=== PATIENT | female | born 1990 | race African-American/Black ===

== ENCOUNTER 2017-10-30 06:57 | Emergency (ER) | payer OTHER, SELFPAY ==
[2017-10-30] MEDS ORDERED: ACETAMINOPHEN 500 MG TAB ONE (07:12)
[2017-10-30] MEDS ORDERED: IBUPROFEN 400 MG TAB ONE (07:44)
[2017-10-30 08:07] LABS: Urine Glucose NEGATIVE (NEG); Urine Specific Gravity 1.025 (1.005-1.030)
[2017-10-30 08:08] LABS: Urine Blood TRACE (NEG); Urine Protein 1+ (NEG); Urine pH 7.5 (5.0-7.0)
[2017-10-30] MEDS ORDERED: METOCLOPRAMIDE 10 MG/2mL INJ ONE (08:14)
[2017-10-30] MEDS ORDERED: DEXAMETHASONE 10 MG/ML VIAL ONE (08:14)
[2017-10-30] MEDS ORDERED: NA CHLORIDE 0.9% 1,000 ML ONE ×2 (08:14→09:11)
[2017-10-30 08:40] LABS: BUN Blood Urea Nitrogen 9 mg/dL (7-18); Bicarbonate 25 mmol/L (21-32); Glucose Level 116 mg/dL (74-106); Potassium 3.9 mmol/L (3.5-5.1); Sodium Level 139 mmol/L (136-145)
[2017-10-30 09:09] LABS: Absolute Monocytes 1.2 K/uL (0.1-1.3); Absolute Neutrophil 11.6 K/uL (1.8-8.0); Basophils % 0.3 % (0-1.3); Eosinophils % 0.3 % (0-4.4); Hematocrit 32.8 % (36.0-45.0); Lymphocytes % 7.5 % (15.3-44.8); MCH 24.7 pg (27.0-35.0); MCV 75.3 fL (80-100); MPV 9.4 fL (7.6-11.3); Monocytes % 8.8 % (3.3-12.3); RBC Red Blood Cell Count 4.36 M/uL (3.86-4.86)
[2017-10-30] MEDS ORDERED: CEFTRIAXONE/SWI 1gm 1 GM/10 ML SYR ONE (09:11)
--- NOTE | 2017-10-30 09:39 | ER ---
Nurse's Notes [facility] Name: Melanie Paz Age: 27 yrs Sex: Female : 1990 Arrival Date: 10/30/2017 Time: 07:02 Bed 13 Private MD: Diagnosis: Acute tonsillitis Presentation: 10/30 07:09 Presenting complaint: Patient states: has had body aches, chills, headache, sore throat iw X 2-3 days, denies n/v/d, denies cough, +mild SOB. Transition of care: patient was not received from another setting of care. Onset of symptoms was October 28, 2017. Risk Assessment: Do you want to hurt yourself or someone else? Patient reports no desire to harm self or others. Initial Sepsis Screen: Does the patient meet any 2 criteria? Temp <36.0*C (96.8*F)) or > 38.3*C (100.4*F). HR > 90 bpm. Does the patient have a suspected source of infection? Yes: Other: throat. Care prior to arrival: None. 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 - Social history:: Smoking status: Patient/guardian denies using tobacco. - Ebola Screening: : Patient negative for fever greater than or equal to 101.5 degrees Fahrenheit, and additional compatible Ebola Virus Disease symptoms Patient denies exposure to infectious person Patient denies travel to an Ebola-affected area in the 21 days before illness onset No symptoms or risks identified at this time. Screenin:50 Abuse screen: Denies threats or abuse. Nutritional screening: No deficits noted. em Tuberculosis screening: No symptoms or risk factors identified. Fall Risk None identified. Assessment: 07:15 General: Appears in no apparent distress. uncomfortable, Behavior is calm, cooperative. em Pain: Complains of pain in throat Pain currently is 10 out of 10 on a pain scale. Neuro: Level of Consciousness is awake, alert, obeys commands, Oriented to person, place, time, situation. Cardiovascular: Patient's skin is warm and dry. Respiratory: Airway is patent Respiratory effort is even, unlabored, Breath sounds are clear bilaterally. EENT: Throat is reddened has enlarged tonsils bilaterally. EENT: Reports difficulty swallowing since 3 days. Derm: Skin is intact, Skin is pink, warm \T\ dry. Musculoskeletal: Range of motion: intact in all extremities. 07:32 Reassessment: Patient appears in no apparent distress at this time. I agree with above iw assessment by Jason Lay LVN. 08:02 Reassessment: Patient appears in no apparent distress at this time. Patient and/or em family updated on plan of care and expected duration. Pain level reassessed. Patient is alert, oriented x 3, equal unlabored respirations, skin warm/dry/pink. request pain medication for back and headache, GIOVANY Paniagua notified. 09:25 Reassessment: Patient appears in no apparent distress at this time. Patient and/or em family updated on plan of care and expected duration. Pain level reassessed. reports ready to go home, c/o back pain due to the stretcher, discharged pending 2nd litter NS bolus. 10:08 Reassessment: Patient and/or family updated on plan of care and expected duration. Pain hj level reassessed. Patient is alert, oriented x 3, equal unlabored respirations, skin warm/dry/pink. awaiting fluids to finish;. Vital Signs: 07:12 BP 156 / 91; Pulse 128; Resp 18 S; Temp 103.3(O); Pulse Ox 99% on R/A; Weight 99.79 kg; iw Height 5 ft. 4 in. (162.56 cm); Pain 10; 08:03 BP 147 / 84; Pulse 125; Resp 20; Temp 103.2(O); Pulse Ox 98% on R/A; em 09:13 BP 117 / 86; Pulse 119; Resp 18; Temp 99.7(O); Pulse Ox 98% on R/A; mh5 09:54 Pulse 108; Resp 17; Pulse Ox 97% on R/A; em 10:08 BP 129 / 65; Pulse 103; Resp 18; Temp 99.1(O); Pulse Ox 97% on R/A; hj 07:12 Body Mass Index 37.76 (99.79 kg, 162.56 cm) ED Course: 07:02 Patient arrived in ED. al2 07:07 Siva Christopher PA is PHCP. cp 07:07 Siva Hankins MD is Attending Physician. cp 07:13 Triage completed. iw 07:13 Arm band placed on. iw 07:14 Jason Lay LVN is Primary Nurse. em 07:50 Patient has correct armband on for positive identification. Bed in low position. Call em light in reach. 07:51 No provider procedures requiring assistance completed. em 08:24 Initial lab(s) drawn, by me, sent to lab. Urine collected: clean catch specimen, mh5 cloudy. Inserted saline lock: 22 gauge in right antecubital area, using aseptic technique. Blood collected. 08:26 BMP Sent. mh5 08:26 CBC with Diff Sent. mh5 08:26 Throat Culture Sent. mh5 08:26 Strep swab sent to lab. mh5 09:12 Lab(s) recollected, by ED staff. mh5 10:16 IV discontinued, intact, bleeding controlled, No redness/swelling at site. Pressure hj dressing applied. Administered Medications: 07:14 Drug: Tylenol 1000 mg Route: PO; em 10:02 Follow up: Response: No adverse reaction; Pain is decreased hj 07:40 Drug: Ibuprofen 800 mg Route: PO; em 10:02 Follow up: Response: No adverse reaction hj 08:30 Drug: Decadron - Dexamethasone 10 mg Route: IVP; Site: right antecubital; iw 09:17 Follow up: Response: No adverse reaction em 08:30 Drug: Reglan 10 mg Route: IVP; Site: right antecubital; iw 09:18 Follow up: Response: No adverse reaction em 08:31 Drug: NS 0.9% 1000 ml Route: IV; Rate: 1 bolus; Site: right antecubital; em 09:43 Follow up: IV Status: Completed infusion; IV Intake: 1000ml em 09:14 Drug: Rocephin 1 grams Route: IV; Rate: calculated rate; Site: right antecubital; iw 09:43 Follow up: Response: No adverse reaction; IV Status: Completed infusion em 09:16 Drug: NS 0.9% 1000 ml Route: IV; Rate: 1 bolus; Site: right antecubital; em 10:17 Follow up: IV Status: Completed infusion; IV Intake: 1000ml hj Intake: 09:43 IV: 1000ml; Total: 1000ml. em 10:17 IV: 1000ml; Total: 2000ml. hj Outcome: 09:38 Discharge ordered by MD. cp 10:16 Discharged to home ambulatory. hj 10:16 Condition: stable 10:16 Discharge instructions given to patient, Instructed on discharge instructions, follow up and referral plans. medication usage, Demonstrated understanding of instructions, follow-up care, medications, Prescriptions given X 2. 10:17 Patient left the ED. Signatures: Jason Lay, MELINA TRAMMELLN em Leola Hinds RN RN Rogelio Moraes RN RN hj Page, Corey, PA PA cp Martinez, Ree 5 Mirella, Conchita [email or web address] Corrections: (The following items were deleted from the chart) 07:51 07:15 Respiratory: Airway is patent Breath sounds are clear bilaterally. em em
--- NOTE | 2017-10-30 09:39 | EDPHYS ---
Physician Documentation [facility] Name: Melanie Paz Age: 27 yrs Sex: Female : 1990 Arrival Date: 10/30/2017 Time: 07:02 Bed 13 Private MD: ED Physician Siva Hankins HPI: 10/30 07:15 This 27 yrs old Black Female presents to ER via Ambulatory with complaints of Sore cp Throat. 07:15 The patient presents with sore throat. The patient describes throat pain as constant. cp 07:15 Onset: The symptoms/episode began/occurred 3 day(s) ago. cp 07:15 Severity of symptoms: in the emergency department the symptoms are unchanged. cp Associated signs and symptoms: Pertinent positives: dysphagia, fever, Pertinent negatives cough, diarrhea, rhinorrhea, vomiting. 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 - Social history:: Smoking status: Patient/guardian denies using tobacco. - Ebola Screening: : Patient negative for fever greater than or equal to 101.5 degrees Fahrenheit, and additional compatible Ebola Virus Disease symptoms Patient denies exposure to infectious person Patient denies travel to an Ebola-affected area in the 21 days before illness onset No symptoms or risks identified at this time. ROS: 07:20 Constitutional: Positive for body aches, fever, Negative for poor PO intake. cp 07:20 Eyes: Negative for injury, pain, redness, and discharge. cp 07:20 ENT: Positive for sore throat, Negative for drainage from ear(s), ear pain, rhinorrhea, difficulty swallowing, difficulty handling secretions. 07:20 Neck: Negative for pain with movement, stiffness. 07:20 Cardiovascular: Negative for chest pain, edema, palpitations. 07:20 Respiratory: Positive for cough, with no reported sputum, Negative for shortness of breath, wheezing. 07:20 Abdomen/GI: Negative for abdominal pain, nausea, vomiting, and diarrhea. 07:20 Skin: Negative for cellulitis, rash. 07:20 Neuro: Positive for headache, Negative for altered mental status, weakness. 07:20 All other systems are negative. Exam: 07:38 Constitutional: The patient appears in no acute distress, alert, awake, well developed, cp well nourished, febrile. 07:38 Head/Face: Normocephalic, atraumatic. cp 07:38 Eyes: Periorbital structures: appear normal, Pupils: equal, round, and reactive to light and accomodation, Extraocular movements: intact throughout, Conjunctiva: normal, no exudate, no injection, Sclera: no appreciated abnormality, Lids and lashes: appear normal, bilaterally. 07:38 ENT: External ear(s): are unremarkable, Ear canal(s): are normal, clear, TM's: dullness, bilaterally, Nose: is normal, Mouth: Lips: moist, Oral mucosa: moist, Posterior pharynx: Airway: no evidence of obstruction, patent, Tonsils: bilaterally enlarged, with erythema, with exudate, Uvula: midline, swelling, is not appreciated, erythema, that is moderate, Voice: is hoarse. 07:38 Neck: ROM/movement: is normal, is supple, no range of motions limitations, no meningismus, no nuchal rigidity, Lymph nodes: lymphadenopathy is appreciated, anterior cervical nodes. 07:38 Chest/axilla: Inspection: normal, Palpation: is normal, no crepitus, no tenderness. 07:38 Cardiovascular: Rate: tachycardic, Rhythm: regular. 07:38 Respiratory: the patient does not display signs of respiratory distress, Respirations: normal, no use of accessory muscles, no retractions, no splinting, no tachypnea, labored breathing, is not present, Breath sounds: are clear throughout, no decreased breath sounds, no stridor, no wheezing. 07:38 Abdomen/GI: Inspection: abdomen appears normal, Bowel sounds: active, all quadrants, Palpation: abdomen is soft and non-tender, in all quadrants, rebound tenderness, is not appreciated, voluntary guarding, is not appreciated, involuntary guarding, is not appreciated. 07:38 Back: pain, is absent, ROM is normal. 07:38 Skin: cellulitis, is not appreciated, no rash present. 07:38 Neuro: Orientation: to person, place \T\ time. Mentation: is normal, Cerebellar function: is grossly normal, Motor: moves all fours, strength is normal, Sensation: no obvious gross deficits. Vital Signs: 07:12 BP 156 / 91; Pulse 128; Resp 18 S; Temp 103.3(O); Pulse Ox 99% on R/A; Weight 99.79 kg; iw Height 5 ft. 4 in. (162.56 cm); Pain 10/10; 08:03 BP 147 / 84; Pulse 125; Resp 20; Temp 103.2(O); Pulse Ox 98% on R/A; em 09:13 BP 117 / 86; Pulse 119; Resp 18; Temp 99.7(O); Pulse Ox 98% on R/A; mh5 09:54 Pulse 108; Resp 17; Pulse Ox 97% on R/A; em 10:08 BP 129 / 65; Pulse 103; Resp 18; Temp 99.1(O); Pulse Ox 97% on R/A; hj 07:12 Body Mass Index 37.76 (99.79 kg, 162.56 cm) iw MDM: 07:08 Patient medically screened. cp 08:00 Differential diagnosis: apthous stomatitis, apthous ulcer, epiglottitis, group A strep cp tonsillitis, laryngitis, felecia's angina, peritonsillar abscess pharyngitis, retropharyngeal abcess tonsillitis, uvulitis. 09:35 Data reviewed: vital signs, nurses notes, lab test result(s). cp 09:35 Counseling: I had a detailed discussion with the patient and/or guardian regarding: the cp historical points, exam findings, and any diagnostic results supporting the discharge/admit diagnosis, lab results, the need for outpatient follow up, a family practitioner, to return to the emergency department if symptoms worsen or persist or if there are any questions or concerns that arise at home. 10/30 07:15 Order name: Strep; Complete Time: 08:04 cp 10/30 08:04 Interpretation: Reviewed. cp 10/30 07:44 Order name: Urine Dipstick--Ancillary (enter results); Complete Time: 08:35 ag 10/30 08:36 Interpretation: Normal except: UBLD TRACE; UPH 7.5; UPROT 1+. cp 10/30 07:44 Order name: Urine --Ancillary (enter results); Complete Time: 08:35 ag 10/30 07:48 Order name: Throat Culture EDMS 10/30 08:06 Order name: CBC with Diff; Complete Time: 09:18 cp 10/30 09:18 Interpretation: Normal except: WBC 13.9; HGB 10.8; HCT 32.8; MCV 75.3; MCH 24.7; TAMARA% cp 83.1; LYM% 7.5; NEUT A 11.6. 10/30 08:06 Order name: BMP; Complete Time: 08:43 cp 07 08:43 Interpretation: Normal except: GLUC 116. cp 10/30 08:06 Order name: [place] Screen Profile; Complete Time: 08:43 cp 07 08:43 Interpretation: MONO NEG; Reviewed. cp 10/30 07:15 Order name: Urine Dipstick-Ancillary (obtain specimen); Complete Time: 07:34 cp 10/30 07:15 Order name: Urine Test (obtain specimen); Complete Time: 07:34 cp 10/30 08:06 Order name: IV; Complete Time: 08:26 cp Administered Medications: 07:14 Drug: Tylenol 1000 mg Route: PO; em 10:02 Follow up: Response: No adverse reaction; Pain is decreased hj 07:40 Drug: Ibuprofen 800 mg Route: PO; em 10:02 Follow up: Response: No adverse reaction hj 08:30 Drug: Decadron - Dexamethasone 10 mg Route: IVP; Site: right antecubital; iw 09:17 Follow up: Response: No adverse reaction em 08:30 Drug: Reglan 10 mg Route: IVP; Site: right antecubital; iw 09:18 Follow up: Response: No adverse reaction em 08:31 Drug: NS 0.9% 1000 ml Route: IV; Rate: 1 bolus; Site: right antecubital; em 09:43 Follow up: IV Status: Completed infusion; IV Intake: 1000ml em 09:14 Drug: Rocephin 1 grams Route: IV; Rate: calculated rate; Site: right antecubital; iw 09:43 Follow up: Response: No adverse reaction; IV Status: Completed infusion em 09:16 Drug: NS 0.9% 1000 ml Route: IV; Rate: 1 bolus; Site: right antecubital; em 10:17 Follow up: IV Status: Completed infusion; IV Intake: 1000ml hj Disposition: 10/31 09:25 Co-signature as Attending Physician, Siva Hankins MD I agree with the assessment and angelica plan of care. Disposition: 10/30/17 09:38 Discharged to Home. Impression: Acute tonsillitis. - Condition is Stable. - Discharge Instructions: Tonsillitis. - Prescriptions for Augmentin 875- 125 mg Oral Tablet - take 1 tablet by ORAL route every 12 hours for 10 days; 20 tablet. Ibuprofen 800 mg Oral Tablet - take 1 tablet by ORAL route every 8 hours As needed take with food; 30 tablet. - Medication Reconciliation Form, Thank You Letter, Antibiotic Education, Prescription Opioid Use form. - Follow up: Private Physician; When: 2 - 3 days; Reason: Recheck today's complaints. - Problem is new. - Symptoms have improved. Signatures: Dispatcher [employer] Siva Alonso MD MD cha Munoz, Edgar, WHITE SUGAR SYRUP OPERATOR WHITE SUGAR SYRUP OPERATOR em Leola Hinds RN RN iw Rogelio Moraes RN RN hj Page, Corey, PA PA cp Corrections: (The following items were deleted from the chart) 10/30 10:17 09:38 10/30/2017 09:38 Discharged to Home. Impression: Acute tonsillitis. Condition is hj Stable. Forms are Medication Reconciliation Form, Thank You Letter, Antibiotic Education, Prescription Opioid Use. Follow up: Private Physician; When: 2 - 3 days; Reason: Recheck today's complaints. Problem is new. Symptoms have improved. cp
[2017-10-30 10:25] VITALS: O2SAT 97
[2017-10-30 10:26] VITALS: BP 129/65; TEMP 99.1
== END 2017-10-30 10:17 | disposition home or self-care (01) ==
LOC: ER 06:57
DX: J03.90 Acute tonsillitis, unspecified (principal); E11.9 Type 2 diabetes mellitus without complications
CPT/HCPCS: 36415; 80048; 81003; 81025; 85025; 86308; 87070; 87081; 96361; 96365; 96375; 99284; J0696; J1100; J2765; J7030

== ENCOUNTER 2017-11-01 19:49 | Inpatient (IN) | payer SELFPAY ==
[2017-11-01] MEDS ORDERED: IBUPROFEN 200 MG TAB PO ONE (20:21)
[2017-11-01] MEDS ORDERED: DEXAMETHASONE 10 MG/ML VIAL ONE (20:22)
[2017-11-01] MEDS ORDERED: LIDOCAINE VISCOUS 2% SOLN 15 ML UDC ONE (20:35)
[2017-11-01] MEDS ORDERED: CLINDAMYCIN 900MG/D5W 900 MG/50 ML BAG IV ONE (20:41)
[2017-11-01] MEDS ORDERED: NA CHLORIDE 0.9% 1,000 ML ONE (20:41)
[2017-11-01] MEDS ORDERED: ONDANSETRON 4 MG/2 ML VIAL ONE (21:22)
[2017-11-01] MEDS ORDERED: MORPHINE 4 MG/ML SYR ONE (21:22)
[2017-11-01 21:23] LABS: Absolute Lymphocytes (CBC) 1.6 K/uL (0.7-4.9); Absolute Monocytes 1.8 K/uL (0.1-1.3); Absolute Neutrophil 11.1 K/uL (1.8-8.0); Basophils % 0.6 % (0-1.3); Eosinophils % 0.9 % (0-4.4); Hematocrit 37.3 % (36.0-45.0); MCH 24.6 pg (27.0-35.0); MCV 74.4 fL (80-100); MPV 9.8 fL (7.6-11.3); Monocytes % 12.1 % (3.3-12.3); RBC Red Blood Cell Count 5.01 M/uL (3.86-4.86)
[2017-11-01 21:39] LABS: Albumin 3.3 g/dL (3.4-5.0); Bilirubin Total 0.4 mg/dL (0.2-1.0); Blood Morphology Comment NOT SEEN (NOT SEEN); Platelet Estimate ADEQ; Potassium 3.4 mmol/L (3.5-5.1); Protein, Total 8.1 g/dL (6.4-8.2); Urine White Blood Cell Casts OK
--- NOTE | 2017-11-01 21:56 | RAD REPORT ---
EXAM DESCRIPTION: CT - Soft Tissue Neck W/Contr - 11/01/2017 9:36 pm CLINICAL HISTORY: Neck pain and neck swelling COMPARISON: None. TECHNIQUE: Computed axial tomography of the neck was obtained. 50 cc Isovue-300 administered intrave nously. Coronal and sagittal reconstruction was performed All CT scans are performed using dose optimization technique as appropriate and may include automated exposure control or mA/KV adjustment according to patient size. FINDINGS: The tonsils bilaterally are enlarged. This results in narrowing of the airway. Peritonsil lar abscess is not seen. The remainder of the pharynx, larynx, tongue base and subglottic trachea appear unremarkable. The parotid, submandibular and thyroid glands are unremarkable. Bilateral enlarged neck lymph nodes are present. The largest measures 17 millimeter short axis IMPRESSION: Bilateral tonsillar enlargement probably indicating acute tonsillitis. A peritonsillar a bscess is not seen Moderate bilateral neck lymphadenopathy most likely is reactive in nature. It is recommended that the patient have a followup neck ultrasound in 1 month to assess stability/ resolution of the lymph node s
--- NOTE | 2017-11-01 23:10 | ER ---
Nurse's Notes [facility] Name: Melanie Paz Age: 27 yrs Sex: Female : 1990 Arrival Date: 11/01/2017 Time: 19:49 Bed 24 Private MD: Diagnosis: tonsillitis;adenopathy Presentation: 11/01 20:10 Presenting complaint: Patient states: throat pain X1 week. 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 pt ak1 with redness, swelling to throat. pt with increased pain today. Transition of care: patient was not received from another setting of care. Onset of symptoms is unknown. Risk Assessment: Do you want to hurt yourself or someone else? Patient reports no desire to harm self or others. Initial Sepsis Screen: Does the patient meet any 2 criteria? No. Patient's initial sepsis screen is negative. Does the patient have a suspected source of infection? No. Patient's initial sepsis screen is negative. Care prior to arrival: None. 20:10 Method Of Arrival: Ambulatory ak1 20:10 Acuity: NEIL 3 ak1 Triage Assessment: 20:11 General: Appears uncomfortable, Behavior is calm, cooperative. Pain: Complains of pain ak1 in throat. EENT: Throat is reddened has enlarged tonsils on right. Neuro: No deficits noted. Cardiovascular: No deficits noted. Respiratory: No deficits noted. GI: No signs and/or symptoms were reported involving the gastrointestinal system. : No signs and/or symptoms were reported regarding the genitourinary system. Derm: No signs and/or symptoms reported regarding the dermatologic system. Musculoskeletal: No signs and/or symptoms reported regarding the musculoskeletal system. 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 - Social history:: Smoking status: Patient/guardian denies using tobacco. - Ebola Screening: : No symptoms or risks identified at this time. Screenin:48 Abuse screen: Denies threats or abuse. Denies injuries from another. Nutritional kr2 screening: No deficits noted. Tuberculosis screening: No symptoms or risk factors identified. Fall Risk None identified. Assessment: 20:49 General: Appears in no apparent distress. uncomfortable, well groomed, well developed, kr2 well nourished, Behavior is calm, cooperative, appropriate for age. Pain: Complains of pain in throat Pain radiates to neck Pain currently is 10 out of 10 on a pain scale. Quality of pain is described as burning, aching, tender, Is continuous, Alleviated by nothing. Aggravated by eating, drinking, heat, cold. Neuro: Level of Consciousness is awake, alert, obeys commands, Oriented to person, place, time, situation, Appropriate for age. Cardiovascular: Capillary refill < 3 seconds in bilateral fingers Patient's skin is warm and dry. Respiratory: Airway is patent. Respiratory: Airway is patent Respiratory effort is even, unlabored, Breath sounds are clear bilaterally. GI: Abdomen is flat, non-distended. : Denies burning with urination. EENT: Nares are clear Oral mucosa is dry. Throat is reddened swelling in neck. Derm: Skin is intact, is healthy with good turgor, Skin is pink, warm \T\ dry. Musculoskeletal: Circulation, motion, and sensation intact. Range of motion: intact in all extremities. 22:00 Reassessment: Patient appears in no apparent distress at this time. Patient and/or kr2 family updated on plan of care and expected duration. Pain level reassessed. Patient is alert, oriented x 3, equal unlabored respirations, skin warm/dry/pink. Pain decreased. 23:00 Reassessment: No changes from previously documented assessment. kr2 11/02 00:34 Reassessment: Patient appears in no apparent distress at this time. Patient and/or kr2 family updated on plan of care and expected duration. Pain level reassessed. Patient is alert, oriented x 3, equal unlabored respirations, skin warm/dry/pink. Patient states feeling better. Vital Signs: 11/01 20:11 BP 143 / 97; Pulse 133; Resp 18; Temp 102.3; Pulse Ox 98% on R/A; Weight 99.79 kg (R); ak1 Height 5 ft. 4 in. (162.56 cm) (R); Pain 02/01; 22:43 BP 137 / 84; Pulse 105; Resp 18; Pulse Ox 97% ; mg2 23:13 BP 134 / 90; Pulse 102; Resp 18; Temp 99.2; Pulse Ox 97% on R/A; kr2 11/02 00:36 BP 128 / 77; Pulse 99; Resp 18; Pulse Ox 98% on R/A; kr2 11/01 20:11 Body Mass Index 37.76 (99.79 kg, 162.56 cm) ak1 ED Course: 11/01 19:49 Patient arrived in ED. es 19:58 Carlos Aguillon MD is Attending Physician. ps1 20:11 Triage completed. ak1 20:11 Arm band placed on Patient placed in an exam room, on a stretcher, Patient notified of ak1 wait time. 20:28 Iza Dubose, VIDHI is Primary Nurse. kr2 20:53 Patient has correct armband on for positive identification. Bed in low position. Call kr2 light in reach. Side rails up X 1. Pulse ox on. NIBP on. Door closed. Verbal reassurance given. Head of bed elevated. 21:36 CT completed. Patient tolerated procedure well. Patient moved back from CT. nj 21:37 CT Soft Tissue Neck W/contr In Process Unspecified. EDMS 23:10 Krista Jensen MD is Hospitalizing Provider. ps1 11/02 00:35 No provider procedures requiring assistance completed. Patient admitted, IV remains in kr2 place. Administered Medications: 11/01 20:28 Drug: Decadron - Dexamethasone 10 mg {Note: given orally.} Route: IVP; Site: Other; kr2 20:28 Drug: Ibuprofen 600 mg Route: PO; kr2 20:48 Drug: Clindamycin 900 mg Route: IVPB; Infused Over: 30 mins; Site: right antecubital; kr2 23:00 Follow up: Response: No adverse reaction; IV Status: Completed infusion kr2 20:48 Drug: NS 0.9% (20 ml/kg) 20 ml/kg Route: IV; Rate: 1 bolus; Site: right antecubital; kr2 22:00 Follow up: Response: No adverse reaction; IV Status: Completed infusion kr2 20:48 Drug: Viscous Lidocaine Liquid (4 %) 10 ml Route: Mucous Membrane; kr2 21:30 Follow up: Response: No adverse reaction kr2 21:30 Drug: morphine 4 mg Route: IVP; Site: right antecubital; kr2 22:00 Follow up: Response: No adverse reaction kr2 21:30 Drug: Zofran 4 mg Route: IVP; Site: right antecubital; kr2 22:00 Follow up: Response: No adverse reaction; Pain is decreased kr2 Outcome: 23:10 Decision to Hospitalize by Provider. ps1 11/02 00:35 Admitted to Med/surg accompanied by tech, family with patient, via wheelchair, room kr2 202, with chart, Report called to Vilma Condition: stable Instructed on the need for admit, Demonstrated understanding of instructions. 00:37 Patient left the ED. kr2 Signatures: Dispatcher [employer] Angelia Keene Amber RN RN ak1 Cheikh Leroy Karey, RN RN kr2 Carlos Aguillon MD MD ps1 Davi Serrano RN RN mg2
--- NOTE | 2017-11-01 23:10 | EDPHYS ---
Physician Documentation [facility] Name: Melanie Paz Age: 27 yrs Sex: Female : 1990 Arrival Date: 11/01/2017 Time: 19:49 Bed 24 Private MD: ED Physician Carlos Aguillon HPI: 11/01 20:40 This 27 yrs old Black Female presents to ER via Ambulatory with complaints of Sore ps1 Throat. 20:40 patient seen and evaluated 2 days ago for pharyngitis and tonisllitis. Now worsening ps1 and has muffled voice and submandibular swelling. Has diabetes. Febrile and tachycardic. Pain rated as moderate to severe. Airway patent. Was treated with ibuprofen and augmentin. . DYNAMICS AX TECHNICAL ARCHITECT: 11/02 00:37 LMP N/A - Irregular menses kr2 Historical: - Allergies: 11/01 20:11 NKDA; ak1 - Home Meds: 20:11 metformin 1,000 mg Oral tab 2 times per day [Active]; ak1 - PMHx: 20:11 Diabetes - NIDDM; PCOS; ak1 - PSHx: 20:11 right ovary; right knee; ak1 - Immunization history:: Adult Immunizations unknown. - Social history:: Smoking status: Patient/guardian denies using tobacco. - Ebola Screening: : No symptoms or risks identified at this time. ROS: 20:40 Eyes: Negative for injury, pain, redness, and discharge, Cardiovascular: Negative for ps1 chest pain, palpitations, and edema, Respiratory: Negative for shortness of breath, cough, wheezing, and pleuritic chest pain, Abdomen/GI: Negative for abdominal pain, nausea, vomiting, diarrhea, and constipation, Back: Negative for injury and pain, MS/Extremity: Negative for injury and deformity, Skin: Negative for injury, rash, and discoloration, Neuro: Negative for headache, weakness, numbness, tingling, and seizure. 20:40 Constitutional: Positive for chills, fever, poor PO intake. 20:40 ENT: Positive for sore throat, submandibular swelling. Exam: 20:40 Head/Face: Normocephalic, atraumatic. ps1 20:40 Respiratory: Lungs have equal breath sounds bilaterally, clear to auscultation and percussion. No rales, rhonchi or wheezes noted. No increased work of breathing, no retractions or nasal flaring. Abdomen/GI: Soft, non-tender, with normal bowel sounds. No distension or tympany. No guarding or rebound. No evidence of tenderness throughout. MS/ Extremity: Pulses equal, no cyanosis. Neurovascular intact. Full, normal range of motion. Neuro: Awake and alert, GCS 15, oriented to person, place, time, and situation. Cranial nerves II-XII grossly intact. Sensory grossly intact. 20:40 Constitutional: The patient appears alert, awake, febrile. 20:40 Head/face: Noted is 20:40 ENT: Mouth: Oral mucosa: pink and intact, Posterior pharynx: Airway: normal, Tonsils: bilaterally enlarged, with erythema, with exudate, Voice: is muffled, Breath odor: smells like rotten eggs, submandibular swelling midline. 20:40 Cardiovascular: Rate: tachycardic, Rhythm: regular, Pulses: no pulse deficits are appreciated. Vital Signs: 20:11 BP 143 / 97; Pulse 133; Resp 18; Temp 102.3; Pulse Ox 98% on R/A; Weight 99.79 kg (R); ak1 Height 5 ft. 4 in. (162.56 cm) (R); Pain 10; 22:43 BP 137 / 84; Pulse 105; Resp 18; Pulse Ox 97% ; mg2 23:13 BP 134 / 90; Pulse 102; Resp 18; Temp 99.2; Pulse Ox 97% on R/A; kr2 11/02 00:36 BP 128 / 77; Pulse 99; Resp 18; Pulse Ox 98% on R/A; kr2 11/01 20:11 Body Mass Index 37.76 (99.79 kg, 162.56 cm) ak1 MDM: 11/01 20:21 Patient medically screened. ps1 11/01 20:39 Order name: CBC with Diff; Complete Time: 22:19 ps1 11/01 20:39 Order name: CMP; Complete Time: 22:19 ps1 11/01 20:39 Order name: Lactate; Complete Time: 22:19 ps1 11/01 21:25 Order name: CBC Smear Scan; Complete Time: 22:19 EDMS 11/01 20:39 Order name: CT Soft Tissue Neck W/contr; Complete Time: 22:19 ps1 11/01 23:07 Order name: Urine Dipstick--Ancillary (enter results); Complete Time: 00:20 ms 07 23:07 Order name: Urine --Ancillary (enter results); Complete Time: 00:20 ms Administered Medications: 20:28 Drug: Decadron - Dexamethasone 10 mg {Note: given orally.} Route: IVP; Site: Other; kr2 20:28 Drug: Ibuprofen 600 mg Route: PO; kr2 20:48 Drug: Clindamycin 900 mg Route: IVPB; Infused Over: 30 mins; Site: right antecubital; kr2 23:00 Follow up: Response: No adverse reaction; IV Status: Completed infusion kr2 20:48 Drug: NS 0.9% (20 ml/kg) 20 ml/kg Route: IV; Rate: 1 bolus; Site: right antecubital; kr2 22:00 Follow up: Response: No adverse reaction; IV Status: Completed infusion kr2 20:48 Drug: Viscous Lidocaine Liquid (4 %) 10 ml Route: Mucous Membrane; kr2 21:30 Follow up: Response: No adverse reaction kr2 21:30 Drug: morphine 4 mg Route: IVP; Site: right antecubital; kr2 22:00 Follow up: Response: No adverse reaction kr2 21:30 Drug: Zofran 4 mg Route: IVP; Site: right antecubital; kr2 22:00 Follow up: Response: No adverse reaction; Pain is decreased kr2 Disposition: 11/01/17 23:10 Hospitalization ordered by Krista Jensen for Observation. Preliminary diagnosis are tonsillitis, adenopathy. - Bed requested for Telemetry/MedSurg (observation). - Status is Observation. kr2 - Condition is Fair. - Problem is an ongoing problem. - Symptoms have worsened. UTI on Admission? No Signatures: Dispatcher [employer] EDSC Nicole Virgen RN RN mw Krenek, Amber, RN RN [email or web address] Iza Dubose RN RN kr2 Carlos Aguillon MD MD ps1 Corrections: (The following items were deleted from the chart) 20:56 19:59 Group A Streptococcus Rapid Sc+BA.LAB.BRZ ordered. EDMS EDMS 20:57 19:59 Throat Culture+BA.LAB.BRZ ordered. EDSC EDMS 11/02 00:11 11/01 23:10 Hospitalization Ordered by Krista Jensen MD for Observation. Preliminary mw diagnosis is tonsillitis; adenopathy. Bed requested for Telemetry/MedSurg (observation). Status is Observation. Condition is Fair. Problem is an ongoing problem. Symptoms have worsened. UTI on Admission? No. ps1 11/02 00:37 00:11 11/01/2017 23:10 Hospitalization Ordered by Krista Jensen MD for Observation. kr2 Preliminary diagnosis is tonsillitis; adenopathy. Bed requested for Telemetry/MedSurg (observation). Status is Observation. Condition is Fair. Problem is an ongoing problem. Symptoms have worsened. UTI on Admission? No. mw
[2017-11-02 00:01] LABS: Urine Blood TRACE (NEG); Urine Glucose NEGATIVE (NEG); Urine Protein NEGATIVE (NEG); Urine Specific Gravity 1.015 (1.005-1.030); Urine pH 5.5 (5.0-7.0)
--- NOTE | 2017-11-02 00:04 | P.HP ---
Certification for Inpatient Patient admitted to: Observation With expected LOS: <2 Midnights Practitioner: I am a practitioner with admitting privileges, knowledge of patient current condition, hospital course, and medical plan of care. Services: Services provided to patient in accordance with Admission requirements found in Title 42 Section 412.3 of the Code of Federal Regulations Patient History Date of Service: 11/01/17 Reason for admission: Tonsillitis History of Present Illness: Ms Paz is a 27 years old woman with history of DM II, obesity, who start with progressive sore throat since 1 week ago. She came to ED about 2 days ago because increasing pain, difficulty swallowing due to swollen and pain, fever 103.0F, Strep A rapid test negative, she was diagnosed with tonsillitis, throat culture negative. She was discharged home with symptomatic medication. Today she came back to ED because symptoms got worse. She is unable to eat because significant pain. No fever today. Lab work 14.7 WBC, CT soft tissue neck, remarkable for tonsillitis, no abscess seen. Allergies No Known Drug Intolerances Allergy (Mild, Unverified 10/30/17 10:21) Unknown NKDA Allergy (Uncoded 12/25/15 04:39) Unknown No Known Allergi Allergy (Uncoded 12/25/15 17:33) Unknown No Known Drug A Allergy (Uncoded 12/28/15 16:53) Unknown Home Medications: Codeine/APAP [Tylenol W/Codeine #3 tab] 1 - 2 tab PO Q6HP PRN #20 tab 12/25/15 - Past Medical/Surgical History Diabetic: No -: obesity -: tonsillitis -: diabetes mellitus II - Family History Family History: Reviewed- Non-Contributory - Social History Smoking Status: Never smoker Alcohol use: No CD- Drugs: No Caffeine use: No Place of Residence: Home Review of Systems 10-point ROS is otherwise unremarkable Physical Examination - Physical Exam General: Alert, In no apparent distress HEENT: Atraumatic, PERRLA, Other (edematose, erytematose tonsills bilateral with white plaques ), EOMI, Sclerae nonicteric Neck: Supple, 2+ carotid pulse no bruit, No LAD, Without JVD or thyroid abnormality Respiratory: Clear to auscultation bilaterally, Normal air movement Cardiovascular: Regular rate/rhythm, Normal S1 S2 Gastrointestinal: Normal bowel sounds, No tenderness Musculoskeletal: No tenderness Integumentary: No rashes Neurological: Normal speech, Normal strength at 5/5 x4 extr, Normal tone, Normal affect Lymphatics: No axilla or inguinal lymphadenopathy - Studies Laboratory Data (last 24 hrs) 11/01/17 20:36: Sodium 138, Potassium 3.4 L, BUN 11, Creatinine 0.90, Glucose 90 , Total Bilirubin 0.4, AST 24, ALT 62, Alkaline Phosphatase 121 H 11/01/17 20:36: WBC 14.7 H, Hgb 12.3, Hct 37.3, Plt Count 317 Assessment and Plan - Problems (Diagnosis) (1) Tonsillitis Current Visit: Yes Status: Acute - Plan Will admit the patient to the hospital, will start empiric IV Levaquin, IV steroids, IV fluids, consult Dr Camara for further recommendations. - Advance Directives Does patient have a Living Will: No Does patient have a Durable POA for Healthcare: No - Code Status/Comfort Care Code Status Assessed: Yes Code Status: Full Code
[2017-11-02] MEDS ORDERED: Levofloxacin 750mg IV 750 MG/150 ML BAG IV SCH (00:50)
[2017-11-02] MEDS ORDERED: GLUCAGON 1 MG/VIAL IM PRN (00:50)
[2017-11-02] MEDS ORDERED: D50W 25 GM/50 ML SYRINGE IV PRN (00:50)
[2017-11-02] MEDS ORDERED: ONDANSETRON 4 MG/2 ML VIAL IV PRN (00:50)
[2017-11-02] MEDS ORDERED: ACETAMINOPHEN 500 MG TAB PO PRN (00:50)
[2017-11-02 01:03] VITALS: BMI 38.9
[2017-11-02] MEDS: NA CHLORIDE 0.9% 1,000 ML IV SCH ×3 (01:30→21:28)
[2017-11-02] MEDS: METHYLPREDNISOLONE 40 MG INJ IV SCH ×3 (01:31→16:17)
[2017-11-02] MEDS ORDERED: KETOROLAC 30 MG/ML INJ IV PRN (01:56)
[2017-11-02] MEDS: KETOROLAC 30 MG/ML INJ IV PRN ×3 (02:45→16:17)
[2017-11-02 05:16] LABS: Absolute Lymphocytes (CBC) 1.2 K/uL (0.7-4.9); Absolute Monocytes 0.5 K/uL (0.1-1.3); Absolute Neutrophil 14.4 K/uL (1.8-8.0); Basophils % 0.3 % (0-1.3); Eosinophils % 0.2 % (0-4.4); Hematocrit 33.3 % (36.0-45.0); Lymphocytes % 7.4 % (15.3-44.8); MCV 75.1 fL (80-100); MPV 9.5 fL (7.6-11.3); Monocytes % 3.2 % (3.3-12.3); RBC Red Blood Cell Count 4.43 M/uL (3.86-4.86)
[2017-11-02 05:35] LABS: BUN Blood Urea Nitrogen 11 mg/dL (7-18); Bicarbonate 25 mmol/L (21-32); Glucose Level 137 mg/dL (74-106); Potassium 3.9 mmol/L (3.5-5.1); Sodium Level 140 mmol/L (136-145)
[2017-11-02] MEDS ORDERED: POTASSIUM CL SA 10 MEQ TAB PO ONE (05:53)
[2017-11-02] MEDS: INSULIN -REGULAR HUMAN 50 UNIT/0.5 ML ML SQ SCH ×4 (07:30→21:00)
--- NOTE | 2017-11-02 10:26 | P.PN ---
Subjective Date of Service: 11/02/17 Primary Care Provider: none Chief Complaint: Tonsillitis Subjective: Other (Patient with sore throat.) Physical Examination - Vital Signs Temperature: 97.9 F Blood Pressure: 126/69 Pulse: 78 Respirations: 16 Pulse Ox (%): 98 - Physical Exam General: Alert, In no apparent distress, Oriented x3, Cooperative HEENT: Atraumatic, Other (Lymphadenopathy in noted bilateral to the neck region. Right tonsillar area in large compared to the left side. White exudate noted to the right side.) Neck: Supple Respiratory: Clear to auscultation bilaterally, Normal air movement Cardiovascular: Normal pulses, Regular rate/rhythm Gastrointestinal: Normal bowel sounds, Soft and benign, Non-distended, No tenderness, No masses, No rebound, No guarding Musculoskeletal: No tenderness, No warmth Integumentary: No warmth, No cyanosis Neurological: Normal speech, Normal strength at 5/5 x4 extr, Normal tone Lymphatics: Other (Neck adenopathy noted) - Studies Laboratory Data (last 24 hrs) 11/01/17 20:36: Sodium 138, Potassium 3.4 L, BUN 11, Creatinine 0.90, Glucose 90 , Total Bilirubin 0.4, AST 24, ALT 62, Alkaline Phosphatase 121 H 11/01/17 20:36: WBC 14.7 H, Hgb 12.3, Hct 37.3, Plt Count 317 Medications List Reviewed: Yes Assessment & Plan - Problems (Diagnosis) (1) Lymphadenopathy Current Visit: Yes Status: Acute Plan: Bilateral neck lymphadenopathy likely related to acute tonsillitis. Patient with history of tonsillitis in the past. Right tonsil area greater than the left. Patient on IV Levaquin and IV steroids. Patient with history of diabetes. Will check A1c, pro calcitonin, and lab. Will will obtain blood cultures. Lab for mono and strep obtained. ENT consulted. Will continue to monitor closely. Will provide medication for pain. Anticipate discharge in the next 1-2 days. (2) Diabetes mellitus Current Visit: Yes Status: Chronic Plan: Will check A1c. Will provide sliding scale. Qualifiers: Diabetes mellitus type: type 2 Diabetes mellitus long term care social worker insulin use: without assisted use Diabetes mellitus complication status: with other specified complication Qualified Code(s): E11.69 - Type 2 diabetes mellitus with other specified complication (3) Obesity Current Visit: Yes Status: Chronic Plan: Will address lifestyle modification education. Qualifiers: Obesity type: due to excess calories Obesity classification: adult class 2 (BMI 35 - 39.9) Serious obesity comorbidity presence: with serious comorbidity Body mass index: BMI 39.0-39.9 Qualified Code(s): E66.01 - Morbid (severe) obesity due to excess calories; Z68.39 - Body mass index (BMI) 39.0-39.9, adult (4) Tonsillitis Onset Date: 11/02/17 Current Visit: Yes Status: Acute Plan: Severe recurrent tonsillitis with lymphadenopathy. A recent strep test unremarkable including sputum culture. Will continue with IV Levaquin and IV steroids. T-max 102.3 last night. ENT consulted. Await further recommendation. Will obtain blood cultures, pro calcitonin and monitor lab. Will make sure diabetes is well controlled. (5) Dysphagia Current Visit: Yes Status: Acute Plan: Likely from severe tonsillitis and lymphadenopathy. Will continue with clear liquid and advance as tolerated. Discharge Plan: Home Plan to discharge in: 48 Hours - Code Status/Comfort Care Code Status Assessed: Yes (Patient full code.) Time Spent Managing Pts Care (In Minutes): 55
[2017-11-02 11:17] LABS: Thyroid Stimulating Hormone 0.34 uIU/mL (0.36-3.74)
[2017-11-02] MEDS: HYDROCODONE/APAP 7.5/325 MG TAB PO PRN ×2 (11:25→18:09)
[2017-11-02] MEDS: TRAMADOL HCL 50 MG TAB PO PRN ×2 (13:17→21:28)
[2017-11-02] MEDS ORDERED: ENOXAPARIN 40 MG/0.4 ML SQ SCH (17:00)
[2017-11-02] MEDS: CLINDAMYCIN INJ 600 MG in NA CHLORIDE 0.9% 50 ML IV SCH (18:51)
[2017-11-02] MEDS: FAMOTIDINE 20 MG TAB PO SCH (21:28)
[2017-11-03] MEDS ORDERED: NA CHLORIDE 0.9% 100 ML ONE (00:29)
[2017-11-03] MEDS ORDERED: CLINDAMYCIN IV 150 MG/ML (6 mL) VIAL ONE (00:29)
[2017-11-03] MEDS: KETOROLAC 30 MG/ML INJ IV PRN ×2 (01:04→07:27)
[2017-11-03] MEDS: CLINDAMYCIN INJ 600 MG in NA CHLORIDE 0.9% 50 ML IV SCH ×2 (01:05→09:02)
[2017-11-03] MEDS: METHYLPREDNISOLONE 40 MG INJ IV SCH (01:05)
[2017-11-03 01:23] VITALS: O2SAT 97
[2017-11-03 05:02] LABS: Absolute Lymphocytes (CBC) 1.4 K/uL (0.7-4.9); Absolute Monocytes 1.4 K/uL (0.1-1.3); Absolute Neutrophil 21.6 K/uL (1.8-8.0); Basophils % 0.1 % (0-1.3); Hematocrit 34.6 % (36.0-45.0); Lymphocytes % 5.6 % (15.3-44.8); MCH 24.9 pg (27.0-35.0); Monocytes % 5.9 % (3.3-12.3); RBC Red Blood Cell Count 4.62 M/uL (3.86-4.86)
[2017-11-03 05:17] LABS: BUN Blood Urea Nitrogen 8 mg/dL (7-18); Bicarbonate 27 mmol/L (21-32); Glucose Level 122 mg/dL (74-106); Magnesium 2.4 mg/dL (1.8-2.4); Potassium 4.2 mmol/L (3.5-5.1); Sodium Level 141 mmol/L (136-145)
[2017-11-03] MEDS: NA CHLORIDE 0.9% 1,000 ML IV SCH (06:03)
[2017-11-03] MEDS: INSULIN -REGULAR HUMAN 50 UNIT/0.5 ML ML SQ SCH ×2 (07:30→11:30)
[2017-11-03 08:34] LABS: Platelet Estimate ADEQ
[2017-11-03 08:35] LABS: Anisocytosis SLIGHT; Blood Morphology Comment NOTED (NOT SEEN); Platelets, Giant FEW
[2017-11-03] MEDS ORDERED: predniSONE 20 MG TAB PO SCH (09:00)
[2017-11-03] MEDS: FAMOTIDINE 20 MG TAB PO SCH (09:02)
--- NOTE | 2017-11-03 10:08 | P.PN ---
Subjective Date of Service: 11/03/17 Primary Care Provider: none Chief Complaint: Tonsillitis Subjective: Other (Swelling to the neck improved. Pain still present but improved overall.) Physical Examination - Vital Signs Temperature: 98.0 F Blood Pressure: 143/88 Pulse: 67 Respirations: 18 Pulse Ox (%): 97 - Physical Exam General: Alert, In no apparent distress, Oriented x3, Cooperative HEENT: Atraumatic, Other (Erythema swelling noted to the tonsillar area right greater than left. Some small ulcers noted.) Neck: Supple, Other (Swelling to the neck region significantly improved.) Respiratory: Clear to auscultation bilaterally, Normal air movement Cardiovascular: Normal pulses, Regular rate/rhythm Gastrointestinal: Normal bowel sounds, Soft and benign, Non-distended, No tenderness, No masses, No rebound, No guarding Musculoskeletal: No erythema, No tenderness, No warmth Integumentary: No tenderness/swelling, No erythema, No warmth, No cyanosis Neurological: Normal speech, Normal strength at 5/5 x4 extr, Normal tone, Normal affect - Studies Medications List Reviewed: Yes Assessment & Plan - Problems (Diagnosis) (1) Lymphadenopathy Current Visit: Yes Status: Acute Plan: Bilateral neck lymphadenopathy likely related to acute tonsillitis. Patient with history of tonsillitis in the past. Right tonsil area greater than the left. Ulcers noted. Antibiotics adjusted yesterday. Patient now on IV clindamycin. Pro calcitonin negative. Monospot and strep test negative. A1c well controlled. Case discussed at length with ENT. Will advance diet as tolerated. Will provide medication for pain. Will transition IV steroids to oral. Anticipate possible discharge later today if she feels better. Encourage ambulation. Patient will require antibiotic therapy, steroids at discharge. Patient may require surgical intervention in the future but not at this time. (2) Diabetes mellitus Current Visit: Yes Status: Chronic Plan: A1c well controlled at 5.5. Continue sliding-scale this time. Qualifiers: Diabetes mellitus type: type 2 Diabetes mellitus [facility] insulin use: without [facility] use Diabetes mellitus complication status: with other specified complication Qualified Code(s): E11.69 - Type 2 diabetes mellitus with other specified complication (3) Obesity Current Visit: Yes Status: Chronic Plan: Will continue to address lifestyle modification education. Qualifiers: Obesity type: due to excess calories Obesity classification: adult class 2 (BMI 35 - 39.9) Serious obesity comorbidity presence: with serious comorbidity Body mass index: BMI 39.0-39.9 Qualified Code(s): E66.01 - Morbid (severe) obesity due to excess calories; Z68.39 - Body mass index (BMI) 39.0-39.9, adult (4) Tonsillitis Onset Date: 11/02/17 Current Visit: Yes Status: Acute Plan: Severe recurrent tonsillitis with lymphadenopathy. A recent strep test unremarkable including sputum culture. Repeat strep culture and Monospot test negative. Patient now on IV clindamycin and steroids. Case discussed with ENT. Anticipate discharge later today if significantly improved. Pro calcitonin negative. (5) Dysphagia Current Visit: Yes Status: Acute Plan: Likely from severe tonsillitis and lymphadenopathy. Will continue with clear liquid and advance as tolerated. Discharge Plan: Home Plan to discharge in: 24 Hours Time Spent Managing Pts Care (In Minutes): 55
[2017-11-03] MEDS: HYDROCODONE/APAP 7.5/325 MG TAB PO PRN (10:19)
--- NOTE | 2017-11-03 12:28 | CON ---
Date of Consultation: 11/02/2017 Reason For Consultation: Tonsillitis. Requesting Physician: Favio Arredondo D.O. Chief Complaint: Sore throat and odynophagia. History Of Present Illness: The patient is a 27-year-old female with a history of t ype 2 diabetes and obesity, who presents with sore throat lasting approximately 8 days. She had delta ral days of sore throat and was seen in the emergency room, diagnosed with tonsillitis. A rapid stre p test at that time was negative. Her throat culture was negative and she was discharged with sympto matic medications. She was subsequently started on Augmentin, but after 3 days of oral Augmentin at home, she continued to have severe throat pain, was unable to the eat or drink and presented to the e mergency room. Within the emergency room, she was noted to have leukocytosis. She underwent a CT sc an of the neck, which demonstrated enlarged tonsils and cervical lymphadenopathy, but no evidence of abscess formation and she was admitted for further treatment given failed outpatient therapy. She co ntinues to have severe pain with swallowing and is unable to tolerate oral fluids or oral foods. She did receive dexamethasone and clindamycin in the emergency room and has been maintained with Levaqui n and Solu-Medrol since her admission to the floor. The patient does report that she has recurrent tonsillitis. Over the last several years, she gets 1- 2 episodes of severe tonsillitis each year and has been previously treated successfully with oral ant ibiotics and has not required previous hospitalization. She has never had a peritonsillar abscess. It is unclear if her previous episodes of tonsillitis were confirmed as strep or non-strep. Past Medical History: Diabetes, obesity. Allergies: NO KNOWN DRUG ALLERGIES. Past Surgical History: None. Family History: Noncontributory. Social History: No tobacco, alcohol, or drugs. Review of Systems: Reviewed from her admission history and physical and is unchanged Physical Examination: General: The patient is awake, alert. She is in no acute distress. She has no stridor or stertor. HEENT: Her pupils are equal, round, reactive. Her extraocular movements are intact. Her nares are patent. Her lips, teeth, gums, tongue, and palate are unremarkable. There is no significant erythem a or bulging of her palate and her uvula is midline. Her tonsils are enlarged and cryptic and erythe matous with white shallow ulcerated plaques, particularly on the right side. She has no trismus. Th ere is no significant medialization of either tonsil and she does not have a hot potato voice. She h as hirsutism. The external ear is unremarkable. Neck: The palpation of the neck shows multiple small tender lymph nodes consistent with her CT findi ngs. Laboratory Data: Her white count is 16.1, with a left shift. CT scan images are personally reviewed . There is no significant mucosal sinus disease or opacification of the mastoids. The tonsils are e nlarged, but there is no hyperlucency to suggest abscess. Her Monospot is negative. Rapid strep catherine t is negative and throat culture is pending. Assessment: Tonsillitis, odynophagia, risk of dehydration. Plan: Continue IV antibiotics and steroids. Encourage p.o. intake. It is difficult to assess at th is time whether her infection is bacterial or viral. I suspect that a significant portion of her linda n is due to the ulcerations of the tonsil and the swelling will continue. It should be very painful until these ulcerations resolve. Levaquin is an unusual choice for tonsillitis and we could consider switching to clindamycin. This is discussed in person with Dr. Arredondo in the ED. The use of steroi ds can improve the degree of swelling and inflammation, but also puts the patient at risk for hypergl ycemia given her underlying diabetes and can consider titration off pending her clinical progress. I spoke with the patient briefly regarding indications for tonsillectomy, current AAO guidelines. Wou ld recommend consideration for tonsillitis in a patient with multiple peritonsillar abscesses or 3 ep isodes of acute tonsillitis yearly for 3 years. Based on the patient's provided history, she does no t meet these guidelines, however due to the severity of the tonsil infection, which has required hosp italization, the patient can consider elective tonsillectomy if she feels the risks and recovery of s urgery would outweigh her history of recurrent infections. I encouraged her to schedule an outpatien t appointment in my clinic to further discuss this option and will continue to follow along with you. RUPERTO Voice ID: [id number] Report ID: [id number]
--- NOTE | 2017-11-03 13:18 | P.DS ---
Admission Date: 11/01/17 Discharge Date: 11/03/17 Primary Care Provider: none Disposition: ROUTINE DISCHARGE Discharge Condition: GOOD Reason for Admission: Tonsillitis Consultations: ENT-Dr. Camara Procedures: CT scan: COMPARISON: None TECHNIQUE: Computed axial tomography of the neck was obtained. 50 cc Isovue- 300 administered intravenously. Coronal and sagittal reconstruction was performed All CT scans are performed using dose optimization technique as appropriate and may include automated exposure control or mA/KV adjustment according to patient size. FINDINGS: The tonsils bilaterally are enlarged. This results in narrowing of the airway. Peritonsillar abscess is not seen. The remainder of the pharynx, larynx, tongue base and subglottic trachea appear unremarkable. The parotid, submandibular and thyroid glands are unremarkable. Bilateral enlarged neck lymph nodes are present. The largest measures 17 millimeter short axis IMPRESSION: Bilateral tonsillar enlargement probably indicating acute tonsillitis. A peritonsillar abscess is not seen Moderate bilateral neck lymphadenopathy most likely is reactive in nature. - Problems (1) Lymphadenopathy Current Visit: Yes Status: Acute (2) Diabetes mellitus Current Visit: Yes Status: Chronic Qualifiers: Diabetes mellitus type: type 2 Diabetes mellitus long-term insulin use: without long-term use Diabetes mellitus complication status: with other specified complication Qualified Code(s): E11.69 - Type 2 diabetes mellitus with other specified complication (3) Obesity Current Visit: Yes Status: Chronic Qualifiers: Obesity type: due to excess calories Obesity classification: adult class 2 (BMI 35 - 39.9) Serious obesity comorbidity presence: with serious comorbidity Body mass index: BMI 39.0-39.9 Qualified Code(s): E66.01 - Morbid (severe) obesity due to excess calories; Z68.39 - Body mass index (BMI) 39.0-39.9, adult (4) Tonsillitis Onset Date: 11/02/17 Current Visit: Yes Status: Acute (5) Dysphagia Current Visit: Yes Status: Acute (6) GERD (gastroesophageal reflux disease) Current Visit: Yes Status: Suspected Qualifiers: Esophagitis presence: esophagitis presence not specified Qualified Code(s) : K21.9 - Gastro-esophageal reflux disease without esophagitis Brief History of Present Illness: 27 yo AAF presented to emergency room with increasing pain to the mouth, sore throat and fever. Patient had been seen recently in the ER for pharyngitis. Patient with history of diabetes. Patient was evaluated emergency room. White count elevated. CT scan showed acute tonsillitis with peritonsillar abscess. Significant lymphadenopathy bilateral was noted . Patient admitted for failed outpatient treatment. Hospital Course: During the course of her stay patient received IV antibiotic therapy for acute tonsillitis with significant lymphadenopathy. Patient seen by ENT. ENT recommended no surgivcal intervention at this time. Patient responded well to IV antibiotic therapy and steroids. At discharge swelling to the cervical lymph nodes had significantly improved. Patient was able to tolerate diet. Pain improved. At discharge she will continue with clindamycin 3 times a day for 10 days and Prednisone 20 mg daily for 5 days. Patient will be provided a limited supply of tramadol 50 mg 1 pill 3 times a day as needed for pain. Patient may take ibuprofen 4 mg 3 times a day as needed for pain. Recommendation the patient follow up with ENT in 1 week follow up this hospitalization. Patient may benefit with tonsillectomy in the future if recommended by ENT. Patient has diabetes. Patient continue with metformin. Recommendation is to maintain blood sugars less 140 fasting and less than 200 after meals. Further adjustment can be done by her PCP. Patient may have underlying GERD. At discharge patient will continue with Pepcid 20 mg 1 pill twice daily. Lifestyle modification education will be provided. Vital Signs/Physical Exam: Temp Pulse Resp BP Pulse Ox 98.0 F 67 18 143/88 H 97 11/03/17 10:08 11/03/17 10:08 11/03/17 10:08 11/03/17 10:08 11/03/17 10:08 General: Alert, In no apparent distress, Oriented x3, Cooperative HEENT: Atraumatic, Other (Tonsillar erythema noted right greater than left. Some mild ulcers noted. Lymphadenopathy to the cervical region improved. Patient able to talk appropriately.) Respiratory: Clear to auscultation bilaterally Cardiovascular: Normal pulses, Regular rate/rhythm Gastrointestinal: Normal bowel sounds, Soft and benign, Non-distended, No tenderness, No masses, No rebound, No guarding Musculoskeletal: No erythema, No tenderness, No warmth Integumentary: No tenderness/swelling, No erythema, No warmth, No cyanosis Neurological: Normal speech, Normal strength at 5/5 x4 extr, Normal tone, Normal affect Laboratory Data at Discharge: WBC 24.4 K/uL (4.3-10.9) H* D 11/03/17 04:23 Hgb 11.5 g/dL (12.0-15.0) L 11/03/17 04:23 Hct 34.6 % (36.0-45.0) L 11/03/17 04:23 Plt Count 300 K/uL (152-406) 11/03/17 04:23 Sodium 141 mmol/L (136-145) 11/03/17 04:23 Potassium 4.2 mmol/L (3.5-5.1) 11/03/17 04:23 BUN 8 mg/dL (7-18) 11/03/17 04:23 Creatinine 0.60 mg/dL (0.55-1.3) 11/03/17 04:23 Glucose 122 mg/dL (74-106) H 11/03/17 04:23 Magnesium 2.4 mg/dL (1.8-2.4) 11/03/17 04:23 Total Bilirubin 0.4 mg/dL (0.2-1.0) 11/01/17 20:36 AST 24 U/L (15-37) 11/01/17 20:36 ALT 62 U/L (12-78) 11/01/17 20:36 Alkaline Phosphatase 121 U/L (45-117) H 11/01/17 20:36 Home Medications: Metformin HCl [Glucophage*] 500 mg PO DAILY 11/02/17 Clindamycin HCl 300 mg PO TID #30 capsule 11/03/17 Famotidine [Pepcid*] 20 mg PO BID #60 tab 11/03/17 predniSONE [Prednisone*] 20 mg PO DAILY #5 tab 11/03/17 traMADol HCL [Ultram*] 50 mg PO TID PRN #10 tab 11/03/17 New Medications: Clindamycin HCl 300 mg PO TID #30 capsule Famotidine [Pepcid*] 20 mg PO BID #60 tab predniSONE [Prednisone*] 20 mg PO DAILY #5 tab traMADol HCL [Ultram*] 50 mg PO TID PRN #10 tab PRN Reason: Pain Mild Patient Discharge Instructions: 1. Patient will need to follow up with a PCP in 1 week to follow up this hospitalization. 2. Patient presented with acute tonsillitis with significant lymphadenopathy. Patient seen by ENT. ENT recommended no surgivcal intervention at this time. Patient responded well to IV antibiotic therapy and steroids. At discharge she will continue with clindamycin 300 mg one pill 3 times a day for 10 days and Prednisone 20 mg daily for 5 days. Patient will be provided a limited supply of tramadol 50 mg 1 pill 3 times a day as needed for pain. Patient may take ibuprofen 4 mg 3 times a day as needed for pain. Recommendation the patient follow up with ENT in 1 week follow up this hospitalization. Patient may benefit with tonsillectomy in the future if recommended by ENT. 3. Patient has diabetes. Diabetes well controlled. Patient continue with metformin 500 mg daily. Recommendation is to maintain blood sugars less 140 fasting and less than 200 after meals. Further adjustment can be done by her PCP. 4. Patient may have underlying GERD. At discharge patient will continue with Pepcid 20 mg 1 pill twice daily. Diet: ADA Activity: Ad ankita Time spent managing pt's care (in minutes): 55
[2017-11-03] MEDS ORDERED: KETOROLAC 30 MG/ML INJ IV PRN (14:29)
[2017-11-03 15:16] VITALS: BP 142/87; TEMP 97.7
== END 2017-11-03 15:30 | disposition home or self-care (01) | DRG 153 ==
LOC: ER 19:49 → 2ND 23:10 → OBSVTOIN 23:10
PROVIDERS: ADMIT Internal Medicine; ATTEND Family Medicine
DX: J03.91 Acute recurrent tonsillitis, unspecified (principal); R59.0 Localized enlarged lymph nodes; E11.9 Type 2 diabetes mellitus without complications; Z79.84 Long term (current) use of oral hypoglycemic drugs; E66.09 Other obesity due to excess calories; Z68.39 Body mass index [BMI] 39.0-39.9, adult; R13.10 Dysphagia, unspecified; K21.9 Gastro-esophageal reflux disease without esophagitis
CPT/HCPCS: 36415; 70491; 80048; 80053; 81003; 81025; 82962; 83036; 83605; 83735; 84145; 84439; 84443; 85025; 86308; 87070; 87081; 99285; J1100; J1650; J2405; J2920; J7030; J7512; Q9967

== ENCOUNTER 2018-08-27 08:34 | Emergency (ER) | payer SELFPAY ==
--- OUTSIDE RECORDS SUMMARY | 2018-08-27 08:37 | XMS REPORT ---
:1990 Author Organization [facility] Address [address] [place] [address] [address] [place] [address] Care Team Providers Name Role Phone Unavailable Unavailable Unavailable Problems This patient has no known problems. Allergies, Adverse Reactions, Alerts This patient has no known allergies or adverse reactions. Medications This patient has no known medications.
[2018-08-27] MEDS ORDERED: NA CHLORIDE 0.9% 1,000 ML ONE (09:20)
[2018-08-27 09:48] LABS: Absolute Lymphocytes (CBC) 1.9 K/uL (0.7-4.9); Absolute Monocytes 0.6 K/uL (0.1-1.3); Absolute Neutrophil 4.7 K/uL (1.8-8.0); Eosinophils % 3.5 % (0-4.4); Hematocrit 37.5 % (36.0-45.0); MPV 9.4 fL (7.6-11.3); Monocytes % 7.7 % (3.3-12.3); RBC Red Blood Cell Count 4.85 M/uL (3.86-4.86)
[2018-08-27 09:52] LABS: BUN Blood Urea Nitrogen 11 mg/dL (7-18); Bicarbonate 27 mmol/L (21-32); Glucose Level 91 mg/dL (74-106); HCG, Quantitative 172 mIU/mL (1-3); Potassium 3.7 mmol/L (3.5-5.1); Sodium Level 140 mmol/L (136-145)
--- NOTE | 2018-08-27 10:47 | RAD REPORT ---
EXAM DESCRIPTION: US - Transvaginal Study Probe - 08/27/2018 10:29 am CLINICAL HISTORY: Abdominal pain COMPARISON: November [address] TECHNIQUE: Endovaginal sonography was performed. FINDINGS: The patient is status post right oophorectomy. No right adnexal residual or recurrent mass . No blood or fluid in the cul-de-sac. Endometrium and myometrium are unremarkable. Nabothian cysts p resent. A 1.9 centimeter thin-walled anechoic left ovarian cyst present. Additionally common approximately 2. 6 centimeter by 1.5 centimeter echogenic mass is present in the left ovary. This may be a single lobu lated mass or 2 abutting smaller masses creating a bilobed appearance. The 2016 ultrasound is technic ally different from the current examination but does show some evidence for an existing echogenic mas s. A dermoid/teratoma would be possible. The mass is not suspected to be acutely clinically significa nt but does warrant monitoring for growth given the patient's age and right oophorectomy status. Endometrium is 10 mm in thickness with no endometrial mass or polyp identified. Uterine size is alcira l with no myometrial mass. IMPRESSION: No uterine abnormality. Endometrium is 10 mm in thickness. Right oophorectomy status with no right adnexal abnormality. Left ovary contains a 19 millimeter simple cyst is well is a 2.6 centimeter echogenic mass that may b e a chronic dermoid or teratoma. The right echogenic mass is not suspected to be of acute clinical si gnificance but does warrant monitoring for growth given the patient's age and right oophorectomy stat us.
--- NOTE | 2018-08-27 10:48 | EDPHYS ---
Physician Documentation [facility] Name: Melanie Paz Age: 28 yrs Sex: Female : 1990 Arrival Date: 08/27/2018 Time: 08:37 Bed 19 Private MD: ED Physician Siva Hankins HPI: 08/27 09:01 This 28 yrs old Black Female presents to ER via Ambulatory with complaints of Abdominal angelica Pain, Vaginal Bleeding. 09:01 This 28 yrs old Black Female presents to ER via Ambulatory with complaints of Abdominal angelica Pain, Vaginal Bleeding. 09:01 The patient presents with pelvic pain, that is located in/on the suprapubic area, angelica vaginal bleeding that is. Onset: The symptoms/episode began/occurred 2 day(s) ago. Modifying factors: The symptoms are alleviated by nothing, remaining still. Associated signs and symptoms: The patient has no apparent associated signs or symptoms. Severity of symptoms: At their worst the symptoms were mild, in the emergency department the symptoms are unchanged. The patient has experienced similar episodes in the past, a few times. 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 - Social history:: Smoking status: Patient uses tobacco products, denies chronic smoking, but will smoke occasionally. - Ebola Screening: : Patient negative for fever greater than or equal to 101.5 degrees Fahrenheit, and additional compatible Ebola Virus Disease symptoms Patient denies exposure to infectious person Patient denies travel to an Ebola-affected area in the 21 days before illness onset No symptoms or risks identified at this time. - Family history:: not pertinent. ROS: 09:01 Constitutional: Negative for fever, chills, and weight loss, Eyes: Negative for injury, angelica pain, redness, and discharge, ENT: Negative for injury, pain, and discharge, Neck: Negative for injury, pain, and swelling, Cardiovascular: Negative for chest pain, palpitations, and edema, Respiratory: Negative for shortness of breath, cough, wheezing, and pleuritic chest pain, Back: Negative for injury and pain, : Negative for injury, bleeding, discharge, and swelling, MS/Extremity: Negative for injury and deformity, Skin: Negative for injury, rash, and discoloration, Neuro: Negative for headache, weakness, numbness, tingling, and seizure, Psych: Negative for depression, anxiety, suicide ideation, homicidal ideation, and hallucinations, Allergy/Immunology: Negative for hives, rash, and allergies, Endocrine: Negative for neck swelling, polydipsia, polyuria, polyphagia, and marked weight changes, Hematologic/Lymphatic: Negative for swollen nodes, abnormal bleeding, and unusual bruising. 09:01 Abdomen/GI: Positive for abdominal pain, lower pelvic pain. Exam: 09: Constitutional: This is a well developed, well nourished patient who is awake, alert, angelica and in no acute distress. Head/Face: Normocephalic, atraumatic. Eyes: Pupils equal round and reactive to light, extra-ocular motions intact. Lids and lashes normal. Conjunctiva and sclera are non-icteric and not injected. Cornea within normal limits. Periorbital areas with no swelling, redness, or edema. ENT: Nares patent. No nasal discharge, no septal abnormalities noted. Tympanic membranes are normal and external auditory canals are clear. Oropharynx with no redness, swelling, or masses, exudates, or evidence of obstruction, uvula midline. Mucous membranes moist. Neck: Trachea midline, no thyromegaly or masses palpated, and no cervical lymphadenopathy. Supple, full range of motion without nuchal rigidity, or vertebral point tenderness. No Meningismus. Chest/axilla: Normal chest wall appearance and motion. Nontender with no deformity. No lesions are appreciated. Cardiovascular: Regular rate and rhythm with a normal S1 and S2. No gallops, murmurs, or rubs. Normal PMI, no JVD. No pulse deficits. Respiratory: Lungs have equal breath sounds bilaterally, clear to auscultation and percussion. No rales, rhonchi or wheezes noted. No increased work of breathing, no retractions or nasal flaring. Back: No spinal tenderness. No costovertebral tenderness. Full range of motion. Skin: Warm, dry with normal turgor. Normal color with no rashes, no lesions, and no evidence of cellulitis. MS/ Extremity: Pulses equal, no cyanosis. Neurovascular intact. Full, normal range of motion. Neuro: Awake and alert, GCS 15, oriented to person, place, time, and situation. Cranial nerves II-XII grossly intact. Motor strength 5/5 in all extremities. Sensory grossly intact. Cerebellar exam normal. Normal gait. Psych: Awake, alert, with orientation to person, place and time. Behavior, mood, and affect are within normal limits. 09:01 Abdomen/GI: Inspection: distension, Bowel sounds: normal, Liver: no appreciated palpable abnormalities, Hernia: not appreciated. Vital Signs: 09:02 BP 161 / 101; Pulse 87; Resp 18; Temp 98.6(O); Pulse Ox 98% on R/A; Weight 102.06 kg; em Height 5 ft. 4 in. (162.56 cm); Pain 5/10; 09:37 BP 124 / 78; Pulse 87; Resp 16; Pulse Ox 99% on R/A; em 10:30 BP 136 / 75; Pulse 90; Resp 18; Pulse Ox 99% on R/A; Pain 5/10; em 09:02 Body Mass Index 38.62 (102.06 kg, 162.56 cm) em MDM: 08:48 Patient medically screened. [facility] 09:13 Data reviewed: vital signs, nurses notes, lab test result(s), radiologic studies, angelica ultrasound. 08/27 09:01 Order name: Quantitative Hcg; Complete Time: 10:09 [facility] 08/27 09:01 Order name: Abo/rh Typing; Complete Time: 10:47 [facility] 08/27 09:01 Order name: Basic Metabolic Panel; Complete Time: 10:09 [facility] 08/27 09:01 Order name: CBC with Diff; Complete Time: 10:09 [facility] 08/27 09:35 Order name: Urine Dipstick--Ancillary (enter results) ms 08/27 09:38 Order name: Urine --Ancillary (enter results) ms 08/27 09:01 Order name: Urine Test (obtain specimen); Complete Time: 10:29 [facility] 08/27 09:01 Order name: IV Saline Lock; Complete Time: 09:04 [facility] 08/27 09:01 Order name: Labs collected and sent; Complete Time: 09:04 [facility] 08/27 09:01 Order name: NPO; Complete Time: 09:04 [facility] 08/27 09:01 Order name: Urine Dipstick-Ancillary (obtain specimen); Complete Time: 10:29 [facility] 08/27 09:01 Order name: US Transvaginal Study (Probe); Complete Time: 10:49 [facility] Administered Medications: 09:30 Drug: NS 0.9% 1000 ml Route: IV; Rate: 1 bolus; Site: right antecubital; em 10:37 Follow up: IV Status: Completed infusion; IV Intake: 1000ml em Disposition: 08/27/18 10:47 Discharged to Home. Impression: Threatened . - Condition is Fair. - Discharge Instructions: Threatened Miscarriage, First Trimester of , [id number], Threatened Miscarriage, [id number], Pelvic Rest. - Prescriptions for Vitamin 27- 0.8 mg Oral Tablet - take 1 tablet by ORAL route once daily; 30 tablet. - Medication Reconciliation Form, Thank You Letter, Antibiotic Education, Prescription Opioid Use form. - Follow up: Private Physician; When: 2 - 3 days; Reason: Recheck today's complaints, Continuance of care, Re-evaluation by your physician. Follow up: Inga Dill; When: 1 - 2 days; Reason: Recheck today's complaints, Continuance of care, Re-evaluation by your physician. - Problem is new. - Symptoms have improved. Signatures: Dispatcher [employer] Siva Alonso MD MD cha Munoz, Edgar, IMPORT DISPATCHER IMPORT DISPATCHER Emily Resendez RN RN ss Corrections: (The following items were deleted from the chart) 11:33 10:47 08/27/2018 10:47 Discharged to Home. Impression: Threatened . Condition ss is Fair. Discharge Instructions: Threatened Miscarriage, First Trimester of , [id number], Threatened Miscarriage, [id number], Pelvic Rest. Prescriptions for Vitamin 27-0.8 mg Oral Tablet - take 1 tablet by ORAL route once daily; 30 tablet. and Forms are Medication Reconciliation Form, Thank You Letter, Antibiotic Education, Prescription Opioid Use. Follow up: Private Physician; When: 2 - 3 days; Reason: Recheck today's complaints, Continuance of care, Re-evaluation by your physician. Follow up: Inga Dill; When: 1 - 2 days; Reason: Recheck today's complaints, Continuance of care, Re-evaluation by your physician. Problem is new. Symptoms have improved. angelica
--- NOTE | 2018-08-27 10:48 | ER ---
Nurse's Notes [facility] Name: Melanei Paz Age: 28 yrs Sex: Female : 1990 Arrival Date: 08/27/2018 Time: 08:37 Bed 19 Private MD: Diagnosis: Threatened Presentation: 08/27 08:57 Presenting complaint: Patient states: c/o suprapubic pain that started 2 days ago, em described as pressure and dull, reports nausea, passed a big clot this morning, denies fever, rates pain 5/10. Transition of care: patient was not received from another setting of care. Onset of symptoms was August 25, 2018. Risk Assessment: Do you want to hurt yourself or someone else? Patient reports no desire to harm self or others. Initial Sepsis Screen: Does the patient meet any 2 criteria? No. Patient's initial sepsis screen is negative. Does the patient have a suspected source of infection? No. Patient's initial sepsis screen is negative. Care prior to arrival: None. 08:57 Method Of Arrival: Ambulatory em 09:05 Acuity: NEIL 3 ss Triage Assessment: 09:02 General: Appears in no apparent distress. comfortable, Behavior is calm, cooperative. em Pain: Complains of pain in suprapubic area. GI: Abdomen is flat, Reports nausea, Patient currently denies diarrhea, vomiting. 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 - Social history:: Smoking status: Patient uses tobacco products, denies chronic smoking, but will smoke occasionally. - Ebola Screening: : Patient negative for fever greater than or equal to 101.5 degrees Fahrenheit, and additional compatible Ebola Virus Disease symptoms Patient denies exposure to infectious person Patient denies travel to an Ebola-affected area in the 21 days before illness onset No symptoms or risks identified at this time. - Family history:: not pertinent. Screenin:57 Abuse screen: Denies threats or abuse. Nutritional screening: No deficits noted. em Tuberculosis screening: No symptoms or risk factors identified. Fall Risk None identified. Assessment: 08:57 General: Appears in no apparent distress. comfortable, Behavior is calm, cooperative, em Denies fever. Pain: Complains of pain in suprapubic area Pain currently is 5 out of 10 on a pain scale. Quality of pain is described as dull, pressure, Pain began 2-3 days ago. Neuro: Level of Consciousness is awake, alert, obeys commands, Oriented to person, place, time, situation. Cardiovascular: Capillary refill < 3 seconds Patient's skin is warm and dry. Respiratory: Airway is patent Respiratory effort is even, unlabored, Respiratory pattern is regular, symmetrical. GI: Abdomen is round non-distended, Bowel sounds present X 4 quads. Abd is soft X 4 quads Abdomen is tender to palpation in right lower quadrant and left lower quadrant Reports nausea, Patient currently denies constipation, diarrhea, vomiting. : Urine is clear, Reports vaginal bleeding that is bright red, with clots, Denies burning with urination. Derm: Skin is intact, is healthy with good turgor, Skin is pink, warm \T\ dry. Musculoskeletal: Capillary refill < 3 seconds, Range of motion: intact in all extremities. 10:02 Reassessment: Patient appears in no apparent distress at this time. Patient and/or em family updated on plan of care and expected duration. Pain level reassessed. Patient is alert, oriented x 3, equal unlabored respirations, skin warm/dry/pink. 10:52 Reassessment: pending provider to speak with pt about results. em Vital Signs: 09:02 BP 161 / 101; Pulse 87; Resp 18; Temp 98.6(O); Pulse Ox 98% on R/A; Weight 102.06 kg; em Height 5 ft. 4 in. (162.56 cm); Pain 5/10; 09:37 BP 124 / 78; Pulse 87; Resp 16; Pulse Ox 99% on R/A; em 10:30 BP 136 / 75; Pulse 90; Resp 18; Pulse Ox 99% on R/A; Pain 5/10; em 09:02 Body Mass Index 38.62 (102.06 kg, 162.56 cm) em ED Course: 08:37 Patient arrived in ED. as 08:43 Jason Lay LVN is Primary Nurse. em 08:48 Siva Hankins MD is Attending Physician. [facility] 08:57 Patient has correct armband on for positive identification. Placed in gown. Bed in low em position. Call light in reach. Pulse ox on. NIBP on. 09:02 Arm band placed on. em 09:05 Triage completed. 09:25 Initial lab(s) drawn, by me, sent to lab. Urine collected: clean catch specimen, clear. em Inserted saline lock: 20 gauge in right antecubital area, using aseptic technique. Blood collected. 09:57 Radiology exam delayed due to US double out-pt exam was being done at this time. sg3 10:27 Ultrasound completed. Patient tolerated well. sg3 10:28 US Transvaginal Study (Probe) In Process Unspecified. EDOR 10:47 Inga Dill MD is Referral Physician. [facility] 10:56 No provider procedures requiring assistance completed. IV discontinued, intact, em bleeding controlled, No redness/swelling at site. Pressure dressing applied. Administered Medications: 09:30 Drug: NS 0.9% 1000 ml Route: IV; Rate: 1 bolus; Site: right antecubital; em 10:37 Follow up: IV Status: Completed infusion; IV Intake: 1000ml em Intake: 10:37 IV: 1000ml; Total: 1000ml. em Outcome: 10:47 Discharge ordered by . [facility] 10:56 Discharged to home ambulatory. em 10:56 Condition: good 10:56 Discharge instructions given to patient, Instructed on discharge instructions, follow up and referral plans. medication usage, Demonstrated understanding of instructions, follow-up care, medications, Prescriptions given X 1. 11:33 Patient left the ED. Signatures: Dispatcher [employer] EDOR Siva Hankins MD MD cha Munoz, Edgar, BAROMETERS CALIBRATOR BAROMETERS CALIBRATOR em Char Cardona Shelby, VIDHI RN Negar Joshi sg3 Corrections: (The following items were deleted from the chart) 10:35 09:57 Radiology exam delayed due to US double out-pt exam being done at this time sg3 sg3
[2018-08-27 11:38] VITALS: TEMP 98.6
[2018-08-27 11:39] VITALS: O2SAT 99
[2018-08-27 11:40] VITALS: BP 136/75
[2018-08-27 13:59] LABS: Urine Blood 3+ (NEG); Urine Glucose NEGATIVE (NEG); Urine Protein 1+ (NEG); Urine Specific Gravity 1.025 (1.005-1.030)
[2018-08-27 14:00] LABS: Urine Specific Gravity 1.025 (1.005-1.030)
== END 2018-08-27 11:33 | disposition home or self-care (01) ==
LOC: ER 08:34
DX: O20.0 Threatened abortion (principal)
CPT/HCPCS: 36415; 76830; 80048; 81003; 81025; 84702; 85025; 86900; 86901; 96360; 99284; J7030

== ENCOUNTER 2019-04-29 13:48 | Emergency (ER) | payer OTHER, SELFPAY ==
--- OUTSIDE RECORDS SUMMARY | 2019-04-29 13:50 | XMS REPORT | Summary of Care ---
:1990 Author Organization [facility] - Health Address [address] [place] [address] Care Team Providers Name Role Phone GuzmanTootie Yuliet JONES Primary Care Provider Encounter Details Date Type Department Care Team Description 01/02/2019 Orders Only [facility] Doctor Unassigned, No [address] [facility] [place] [address] [address] [place] [address] Allergies No Known Allergiesdocumented as of this encounter (statuses as of 01/02/2019) Medications Medication Sig Dispensed Refills Start Date End Date Status vit Take by mouth. 0 Active calc,iron,folic ( VITAMIN ORAL) ibuprofen 800 mg Take 1 tablet by 10 tablet 0 01/02/2019 Active tabletIndications: mouth every 8 Missed (eight) hours as needed (prn pain). HYDROcodone-acetaminop Take 1 tablet by 5 tablet 0 01/02/2019 Active hen 5-325 mg mouth every 6 tabletIndications: (six) hours as Missed needed for Pain (scale 4-6) or Pain (scale 7-10). Hospital, Clinic, or Ordered Dose Route Frequency Start Date End Date Status Other Facility Administered Medication miSOPROStol (CYTOTEC) 800 mcg Vaginal ONCE 01/02/2019 01/02/2019 Active tablet 800 mcg ibuprofen (IBU) tablet 800 mg Oral ONCE 01/02/2019 01/02/2019 Active 800 mg documented as of this encounter (statuses as of 01/02/2019) Active Problems Problem Noted Date High risk , antepartum 12/22/2018 History of prediabetes 12/22/2018 PCOS (polycystic ovarian syndrome) 12/22/2018 Abnormal urinalysis 12/22/2018 Cessation of tobacco use in previous 12 months 12/22/2018 Elevated BP without diagnosis of hypertension 12/22/2018 Obesity affecting , antepartum 12/22/2018 BMI 38.0-38.9,adult 12/22/2018 Estimated Date of Delivery Comments Yes 07/15/2019 Based on last menstrual period of 10/08/2018 (Exact Date) documented as of this encounter (statuses as of 01/02/2019) Social History Tobacco Use Types Packs/Day Years Used Date Former Smoker Cigarettes Quit: 10/22/2018 Smokeless Tobacco: Never Used Alcohol Use Drinks/Week oz/Week Comments Not Currently Estimated Date of Delivery Comments Yes 07/15/2019 Based on last menstrual period of 10/08/2018 (Exact Date) Sex Assigned at Date Recorded Not on file Job Start Date Occupation Industry Not on file Not on file Not on file Travel History Travel Start Travel End No recent travel history available. documented as of this encounter Last Filed Vital Signs Not on filedocumented in this encounter Plan of Treatment Date Type Specialty Care Team Description 01/05/2019 Routine Visit [facility] Trimester, [facility] Res-1st 01/19/2019 Routine Visit [facility] Tootie Hinds, CRYSTAL CUTTER [address] [facility] [place] [address] [phone] Health Maintenance Due Date Last Done Comments VARICELLA VACCINES (1 of 2 - 13+ 02/09/2001 2-dose series) DTaP,Tdap,and Td Vaccines (1 - 02/09/2007 Tdap) PAP SMEAR 06/03/2012 06/03/2009 INFLUENZA VACCINE (#1) 2018 PNEUMOCOCCAL 0-64 YEARS COMBINED Aged Out No longer eligible based on SERIES patient's age to complete this topic documented as of this encounter Procedures Procedure Name Priority Date/Time Associated Diagnosis Comments DISCLOSURE AND CONSENT, Routine 01/02/2019 12:01 AM MEDICAL AND SURGICAL CDT PROCEDURES documented in this encounter Results Not on filedocumented in this encounter Insurance Payer Benefit Plan / Subscriber ID Effective Dates Phone Address Type Group [employer] MEDICAID OF xxxxxxxxx 2018-Present [phone] [address] Medicaid [place] [id number] [place] [phone] documented as of this encounter Advance Directives Name Relationship Healthcare Agent Relationship Communication Arminda Paz Mother Primary healthcare agent Minda Zaragoza Grandparent First alternate healthcare agent [phone] (Home )
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
--- OUTSIDE RECORDS SUMMARY | 2019-04-29 13:50 | XMS REPORT | Summary of Care ---
:1990 Author Organization [facility] Address [address] [place] [address] Care Team Providers Name Role Phone Tootie Hinds Primary Care Provider Reason for Visit Reason Comments ULTRASOUND (Routine) Status Reason Specialty Diagnoses / Referred By Referred To Procedures Contact Contact Closed Maternal Diagnoses High risk , antepartum Tootie Hinds Medicine Procedures CONSULT MATERNAL MEDICINE ULTRASOUND Preferred Location: KAREN Demarco [address] [place] [address] Encounter Details Date Type Department Care Team Description 01/01/2019 Translator Visit [facility] Antonieta Ochoa MD [id number] [place] [address] Uterine size-date discrepancy in first trimester; [facility] Usg Room with inconclusive viability, single or unspecified fetus [facility] [address] [facility]rd [place] [address] Allergies No Known Allergiesdocumented as of this encounter (statuses as of 01/01/2019) Medications Medication Sig Dispensed Refills Start Date End Date Status vit Take by mouth. 0 Active calc,iron,folic ( VITAMIN ORAL) documented as of this encounter (statuses as of 01/01/2019) Active Problems Problem Noted Date High risk [...] as of this encounter (statuses as of 01/01/2019) Social History Tobacco Use Types Packs/Day Years [...] Treatment Date Type Specialty Care Team Description 01/19/2019 Routine Visit [facility] Tootie Hinds, CLEAN RICE BROKER [address] [place] [address] [phone] Health Maintenance Due Date Last Done Comments VARICELLA VACCINES (1 of 2 - 13+ 02/09/2001 2-dose series) DTaP,Tdap,and Td Vaccines (1 - 02/09/2007 Tdap) PAP SMEAR 06/03/2012 06/03/2009 INFLUENZA VACCINE (#1) 2018 PNEUMOCOCCAL 0-64 YEARS COMBINED Aged Out No longer eligible based on SERIES patient's age to complete this topic documented as of this encounter Procedures Procedure Name Priority Date/Time Associated Diagnosis Comments FIRST TRIMESTER Routine 01/01/2019 3:55 PM ULTRASOUND CDT documented in this encounter Results FIRST TRIMESTER ULTRASOUND (01/01/2019 3:55 PM CDT) Specimen documented in this encounter Visit Diagnoses Diagnosis Uterine size-date discrepancy in first trimester Uterine size date discrepancy, antepartum condition or complication with inconclusive viability, single or unspecified fetus documented in this encounter Insurance Payer Benefit Plan / Subscriber ID Effective Dates Phone Address Type Group [facility] MEDICAID OF xxxxxxxxx 2018-Present [phone] [address] Medicaid [place] [id number] [place] [phone] documented as of this encounter Advance Directives Name Relationship Healthcare Agent Relationship Communication Arminda Leonardolorettavivek Mother Primary healthcare agent Minda Zaragoza Grandparent First alternate healthcare agent [phone] (Home )
--- OUTSIDE RECORDS SUMMARY | 2019-04-29 13:50 | XMS REPORT | Summary of Care ---
:1990 Author Organization [facility] Address [address] [place] [address] Care Team Providers Name Role Phone Tootie Hinds Primary Care Provider Reason for Visit Reason Comments Orders Encounter Details Date Type Department Care Team Description 12/27/2018 Telephone [facility]- Tootie Greene, [facility] Orders [address] [place] [address] [facility] A [phone] [place] [address] Allergies No Known Allergiesdocumented as of this encounter (statuses as of 12/27/2018) Medications Medication Sig Dispensed Refills Start Date End Date Status vit Take by mouth. 0 Active calc,iron,folic ( VITAMIN ORAL) sulfamethoxazole-trim Take 1 tablet by 6 tablet 0 12/27/2018 12/30/2018 Active ethoprim (BACTRIM DS) mouth 2 (two) 800-160 mg per times daily for 3 tabletIndications: days. Urinary tract infection in mother during first trimester of documented as of this encounter (statuses as of 12/27/2018) Active Problems Problem Noted Date High risk [...] as of this encounter (statuses as of 12/27/2018) Social History Tobacco Use Types Packs/Day Years [...] 01/19/2019 Routine Visit [facility] Tootie Hinds, REGISTRATION SPECIALIST [address] [place] [address] [phone] Health Maintenance Due Date Last Done Comments VARICELLA VACCINES (1 of 2 - 13+ 02/09/2001 2-dose series) DTaP,Tdap,and Td Vaccines (1 - 02/09/2007 Tdap) PAP SMEAR 06/03/2012 06/03/2009 INFLUENZA VACCINE (#1) 2018 PNEUMOCOCCAL 0-64 YEARS COMBINED Aged Out No longer eligible based on SERIES patient's age to complete this topic documented as of this encounter Results Not on filedocumented in this encounter Insurance Payer Benefit Plan / Subscriber ID Effective Phone Address Type Group Dates MEDICAID MEDICAID PENDING 2018-[address] Pending [place] [address] documented as of this encounter Advance Directives Name Relationship Healthcare Agent Relationship Communication Arminda Paz Mother Primary healthcare agent Minda Zaragoza Grandparent First alternate healthcare agent [phone] (Home )
--- OUTSIDE RECORDS SUMMARY | 2019-04-29 13:50 | XMS REPORT | Summary of Care ---
:1990 Author Organization [facility] Address [address] [place] [address] Care Team Providers Name Role Phone Tootie Hinds [facility] Primary Care Provider Reason for Referral (Routine) Status Reason Specialty Diagnoses / Referred By Referred To Procedures Contact Contact New Request Maternal Diagnoses High risk , antepartum Tootie Hinds Medicine Procedures CONSULT MATERNAL MEDICINE ULTRASOUND Preferred Location: [place] Yuliet [facility] [address] [place] [address] Encounter Details Date Type Department Care Team Description 12/26/2018 Patient Secure [facility]- Tootie Hinds High risk , Msg Maria Esther Horvath, HEALTHCARE INTERPRETER antepartum (Primary [address] [place] [address] [address] [place] [phone] [address] Allergies No Known Allergiesdocumented as of this encounter (statuses as of 12/28/2018) Medications Medication Sig Dispensed Refills Start Date End Date Status vit Take by mouth. 0 Active calc,iron,folic ( VITAMIN ORAL) documented as of this encounter (statuses as of 12/28/2018) Active Problems Problem Noted Date High risk [...] as of this encounter (statuses as of 12/28/2018) Social History Tobacco Use Types Packs/Day Years [...] 01/19/2019 Routine Visit [facility] Tootie Hinds, HEALTHCARE INTERPRETER [address] [place] [place] [address] [phone] Health Maintenance Due Date Last Done Comments VARICELLA VACCINES (1 of 2 - 13+ 02/09/2001 2-dose series) DTaP,Tdap,and Td Vaccines (1 - 02/09/2007 Tdap) PAP SMEAR 06/03/2012 06/03/2009 INFLUENZA VACCINE (#1) 2018 PNEUMOCOCCAL 0-64 YEARS COMBINED Aged Out No longer eligible based on SERIES patient's age to complete this topic documented as of this encounter Results Not on filedocumented in this encounter Visit Diagnoses Diagnosis High risk , antepartum - Primary documented in this encounter Insurance Payer Benefit Plan / Subscriber ID Effective Dates Phone Address Type Group [employer] MEDICAID OF xxxxxxxxx 2018-Present [phone] [address] Medicaid [place] [address] [place] [address] documented as of this encounter Advance Directives Name Relationship Healthcare Agent Relationship Communication Arminda Paz Mother Primary healthcare agent Minda Zaragoza Grandparent First alternate healthcare agent [phone] (Home )
--- OUTSIDE RECORDS SUMMARY | 2019-04-29 13:50 | XMS REPORT ---
:1990 Author Organization [facility] Address [address] [place] [address] [address] [place] [address] Care Team Providers Name Role Phone Unavailable Unavailable Unavailable Problems This patient has no known problems. Allergies, Adverse Reactions, Alerts This patient has no known allergies or adverse reactions. Medications This patient has no known medications.
--- OUTSIDE RECORDS SUMMARY | 2019-04-29 13:50 | XMS REPORT | Summary of Care ---
:[address] [facility] Address [address] [place] [address] Care Team Providers Name Role Phone Tootie Hinds Primary Care Provider Reason for Visit Reason Comments POSSIBLE MISCARRIAGE Encounter Details Date Type Department Care Team Description 01/02/2019 Routine [facility] Charli Garcia MD [address] [place] [address] Missed Visit [facility]-Daphne Trimester, [facility] Res-1st (Primary Dx) [facility] [address] [facility], [address] [place] [address] Allergies No Known Allergiesdocumented as of this [...] (CYTOTEC) 800 mcg Vaginal ONCE 01/02/2019 01/02/2019 Ended tablet 800 mcg ibuprofen (IBU) tablet 800 mg Oral ONCE 01/02/2019 01/02/2019 Ended 800 mg documented as of this encounter [...] of this encounter Last Filed Vital Signs Vital Sign Reading Time Taken Comments Blood Pressure 130/79 01/02/2019 10:11 AM CDT Pulse - - Temperature 37.7 C (99.9 F) 01/02/2019 10:11 AM CDT Respiratory Rate - - Oxygen Saturation - - Inhaled Oxygen Concentration - - Weight 103 kg (227 lb) 01/02/2019 10:11 AM CDT Height 162.6 cm (5' 4") 01/02/2019 10:11 AM CDT Body Mass Index 38.96 01/02/2019 10:11 AM CDT documented in this encounter Progress Notes Milly Hudson MD - 01/02/2019 10:15 AM CDT Chief complaint: Chief Complaint Patient presents with POSSIBLE MISCARRIAGE HPI Melanie Paz is a 28 year-old female supposed to be at 12w2d who presents for demise. Patient had MFM USG Yesterday showing 7 week with no heart beat. Pt reports ultrasound at outside facility with heart beat. Today she complains. Mild cramping. No bleeding. No sob no fevers. Histories OB History Para Term AB Living 2 1 SAB TAB Ectopic Multiple Live Births 1 # Outcome Date GA Lbr Regino/2nd Weight Sex Delivery Anes PTL Lv 2 Current 1 SAB 08/2018 3w0d Past Medical History: Diagnosis Date Anxiety resolved History of prediabetes 12/22/2018 PCOS (polycystic ovarian syndrome) 2012 PCOS (polycystic ovarian syndrome) 12/22/2018 Family History Problem Relation Age of Onset No Significant Medical Problems Mother No Significant Medical Problems Father No Significant Medical Problems Sister No Significant Medical Problems Brother No Significant Medical Problems Maternal Aunt No Significant Medical Problems Maternal Uncle No Significant Medical Problems Paternal Aunt No Significant Medical Problems Paternal Uncle Hypertension Maternal Grandmother Heart Maternal Grandfather Heart Paternal Grandmother Heart Paternal Grandfather Family Status Relation Name Status Mo Alive Fa Alive Sis Alive Bro Alive MAunt Alive MUnc Alive PAunt Alive PUnc Alive MGMo Alive MGFa Alive PGMo PGFa Past Surgical History: Procedure Laterality Date DILATION AND CURETTAGE (SHX) 2009 OOPHORECTOMY 11/2015 Social History Socioeconomic History Marital status: Single Spouse name: Not on file Number of children: Not on file Years of education: Not on file Highest education level: Not on file Occupational History Not on file Social Needs Financial resource strain: Not on file Food insecurity: Worry: Not on file Inability: Not on file Transportation needs: Medical: Not on file Non-medical: Not on file Tobacco Use Smoking status: Former Smoker Types: Cigarettes Last attempt to quit: 10/22/2018 Years since quittin.1 Smokeless tobacco: Never Used Substance and Sexual Activity Alcohol use: Not Currently Drug use: Never Sexual activity: Yes Partners: Male control/protection: None Comment: last sexual intercourse 12/18/2018 Lifestyle Physical activity: Days per week: Not on file Minutes per session: Not on file Stress: Not on file Relationships Social connections: Talks on phone: Not on file Gets together: Not on file Attends anabaptist service: Not on file Active member of club or organization: Not on file Attends meetings of clubs or organizations: Not on file Relationship status: Not on file Intimate partner violence: Fear of current or ex partner: Not on file Emotionally abused: Not on file Physically abused: Not on file Forced sexual activity: Not on file Other Topics Concern Not on file Social History Narrative Caodaism preference is Gnosticist. Patient lives with parents. Social History Substance and Sexual Activity Sexual Activity Yes Partners: Male control/protection: None Comment: last sexual intercourse 12/18/2018 Labs Initial Visit on 12/22/2018 Component Date Value POCT PREG 12/22/2018 Positive On board controls accept* 12/22/2018 Yes POCT PH U 12/22/2018 6 POCT U LEUK EST 12/22/2018 neg POCT U NIT 12/22/2018 pos POCT U PROT 12/22/2018 trace POCT U GLU 12/22/2018 neg POCT U KETONE 12/22/2018 neg POCT U BLD 12/22/2018 neg POCT Glu (age>30days) 12/22/2018 115* HBsAg 12/22/2018 Negative HBsAg Semi-Quantitative 12/22/2018 0.05 HIV 1/2 Ag-Ab with Reflex 12/22/2018 Negative HIV Semi-quantitative 12/22/2018 0.06 ABO & RH 12/22/2018 A POSITIVE IAT 12/22/2018 Negative Rubella screen IgG 12/22/2018 Positive Syphilis IgG/IgM 12/22/2018 Non-reactive URINE CULTURE 12/22/2018 >100,000 CFU/mL Enterobacter cloacae complex WBC 12/22/2018 9.08 RBC 12/22/2018 4.60 HGB 12/22/2018 11.1* HCT 12/22/2018 36.1 MCV 12/22/2018 78.5* MCH 12/22/2018 24.1* MCHC 12/22/2018 30.7* RDW-SD 12/22/2018 45.7 RDW-CV 12/22/2018 16.1* PLT 12/22/2018 326 MPV 12/22/2018 11.2 NRBC/100 WBC 12/22/2018 0.0 NRBC x10^3 12/22/2018 <0.01 GRAN MAT (NEUT) % 12/22/2018 65.3 IMM GRAN % 12/22/2018 0.20 LYMPH % 12/22/2018 23.0 MONO % 12/22/2018 9.5 EOS % 12/22/2018 1.7 BASO % 12/22/2018 0.3 GRAN MAT x10^3(ANC) 12/22/2018 5.93 IMM GRAN x10^3 12/22/2018 <0.03 LYMPH x10^3 12/22/2018 2.09 MONO x10^3 12/22/2018 0.86 EOS x10^3 12/22/2018 0.15 BASO x10^3 12/22/2018 0.03 HGB A1C 12/22/2018 5.3 NA 12/22/2018 137 K 12/22/2018 4.1 CL 12/22/2018 103 CO2 TOTAL 12/22/2018 28 AGAP 12/22/2018 6 BUN 12/22/2018 12 GLUCOSE 12/22/2018 84 CREATININE 12/22/2018 0.68 TOTAL BILI 12/22/2018 0.2 CALCIUM 12/22/2018 10.1 T PROTEIN 12/22/2018 7.0 ALBUMIN 12/22/2018 4.0 ALK PHOS 12/22/2018 77 ALT(SGPT) 12/22/2018 25 AST(SGOT) 12/22/2018 19 eGFR Calculation (Non-Af* 12/22/2018 101.6 eGFR Calculation (Larissa* 12/22/2018 123.1 High Risk HPV 12/22/2018 Negative C. trachomatis Nucleic A* 12/22/2018 Negative N. gonorrhoeae Nucleic A* 12/22/2018 Negative Orders Only on 12/22/2018 Component Date Value Consent To Contact For V* 12/22/2018 Yes Radiology MFM TVUS 01/01: Preg. Location: Intrauterine Placenta: Too early to evaluate Cardiac Activity: Not observed Amniotic Fluid Amniotic F.V.: Within normal limits GS: 30.2 mm. G. Age: 8w 5d JAYDA: 08/08/2019 CRL: 14.51 mm. G. Age: 7w 6d Allergies Melanie has No Known Allergies. Medications Melanie has a current medication list which includes the following prescription(s ): vit calc,iron,folic. Review of Systems Constitutional: Negative for chills, diaphoresis and fatigue. HENT: Negative. Respiratory: Negative for cough, choking, chest tightness and shortness of breath. Breasts: Negative. Cardiovascular: Negative for chest pain, palpitations and leg swelling. Musculoskeletal: Negative for arthralgias, back pain and gait problem. Skin: Negative. Neurological: Negative. Psychiatric/Behavioral: Negative. LMP 10/08/2018 (Exact Date) Pregravid BMI: 38.8 Physical Exam Vitals reviewed. Constitutional: She is oriented to person, place, and time. She appears well- developed and well-nourished. Neck: No mass. Cardiovascular: Regular rate and rhythm. No murmur auscultated. Pulmonary/Chest: Breath sounds clear to auscultation. Normal inspiratory effort. Abdominal: Abdomen is soft. There is no guarding. Neuro/Psychiatric: She has a normal mood and affect. She is oriented to person, place, and time. Skin: Skin normal. Assessment/Plan Missed (primary encounter diagnosis) - Patient reports previous usg at OSH with + heart tones: - MFM TVUS 01/01: 7 week with GS 30 mm CRL 14 and no heart beat , consistent with demise. - Rh + - Patient counseled regarding risk and benefits on expectant management vs medical vs surgical management and desires medical management Plan: miso 800 mcg vaginally, ibuprofen, - Follow up on tuesday Discussed with Dr. Jose Hudson MD PGY-4 Obstetrics and Gynecology documented in this encounter Plan of Treatment Date Type Specialty Care Team Description 01/05/2019 Routine Visit [facility] Trimester, [facility] Res-1st 01/19/2019 Routine Visit [facility] Tootie Hinds, ENERGY ASSISTANT [address] [facility] [place] [address] [phone] Health Maintenance Due Date Last Done Comments [...] filedocumented in this encounter Visit Diagnoses Diagnosis Missed - Primary documented in this encounter Administered Medications Medication Order MAR Action Action Date Dose Rate Site ibuprofen (IBU) tablet 800 mg Given 01/02/2019 11:00 AM CDT 800 mg 800 mg, Oral, ONCE, 1 dose, Tue01/02/19 at 1200, Routine miSOPROStol (CYTOTEC) tablet 800 mcg Given 01/02/2019 11:00 AM CDT 800 mcg 800 mcg, Vaginal, ONCE, 1 dose, Tue01/02/19 at 1200, Routine documented in this encounter Insurance Payer Benefit Plan / Subscriber ID Effective Dates Phone Address Type Group [employer] MEDICAID OF xxxxxxxxx 2018-Present [phone] [address] [place] [id number] [place] [id number] documented as of this encounter Advance Directives Name Relationship Healthcare Agent Relationship Communication Arminda Paz Mother Primary healthcare agent Minda Zaragoza Grandparent First alternate healthcare agent [phone] (Home )
--- OUTSIDE RECORDS SUMMARY | 2019-04-29 13:50 | XMS REPORT | Summary of Care ---
:1990 Author Organization [facility] Address [address] [place] [address] Care Team Providers Name Role Phone Tootie Hinds Primary Care Provider Reason for Visit Reason Comments Lab Results Encounter Details Date Type Department Care Team Description 12/26/2018 Telephone [facility]- Tootie Greene FNP Lab Results [address] [place] [address] Reuben A [phone] [place] [address] Allergies No Known Allergiesdocumented as [...] 01/19/2019 Routine Visit [facility] Tootie Hinds, PHONE TECHNICIAN [address] [place] [address] [phone] Health Maintenance Due Date Last Done Comments [...] filedocumented in this encounter Visit Diagnoses Diagnosis Urinary tract infection in mother during first trimester of - Primary documented in this encounter Insurance Payer Benefit Plan / Subscriber ID Effective Phone Address Type Group Dates MEDICAID MEDICAID PENDING 2018-[address] Pending PENDING [place] [address] documented as of this encounter Advance Directives Name Relationship Healthcare Agent Relationship Communication Arminda Paz Mother Primary healthcare agent Minda Zaragoza Grandparent First alternate healthcare agent [phone] (Home )
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
--- OUTSIDE RECORDS SUMMARY | 2019-04-29 13:51 | XMS REPORT | Summary of Care ---
:1990 Author Organization [facility] Address [address] [place] [address] Care Team Providers Name Role Phone Tootie Hinds Primary Care Provider Reason for Visit Reason Comments MISSED Encounter Details Date Type Department Care Team Description 01/05/2019 Routine [facility] [address] [facility] [id number] [place] [address] Missed Visit [facility], [facility] Res-1st (Primary Dx) [facility] [address] [facility], [address]th [place] [address] Allergies No Known Allergiesdocumented as of this encounter (statuses as of 01/05/2019) Medications Medication Sig Dispensed Refills Start Date End Date Status vit Take by 0 Active calc,iron,folic mouth. ( VITAMIN ORAL) HYDROcodone-acetam Take 1 tablet 5 tablet 0 01/05/2019 Active inophen 5-325 mg by mouth every tabletIndications: 6 (six) hours Missed as needed for Pain (scale 4-6) or Pain (scale 7-10). ibuprofen 800 mg Take 1 tablet 10 tablet 0 01/05/2019 Active tabletIndications: by mouth every Missed 8 (eight) hours as needed (prn pain). ibuprofen 800 mg Take 1 tablet 10 tablet 0 01/02/2019 01/05/2019 Discontinued tabletIndications: by mouth every Missed 8 (eight) hours as needed (prn pain). HYDROcodone-acetam Take 1 tablet 5 tablet 0 01/02/2019 01/05/2019 Discontinued inophen 5-325 mg by mouth every tabletIndications: 6 (six) hours Missed as needed for Pain (scale 4-6) or Pain (scale 7-10). Hospital, Clinic, or Ordered Dose Route Frequency Start Date End Date Status Other Facility Administered Medication miSOPROStol (CYTOTEC) 800 mcg Vaginal ONCE 01/05/2019 01/05/2019 Ended tablet 800 mcgIndications: Missed ibuprofen (IBU) tablet 800 mg Oral ONCE 01/05/2019 01/05/2019 Ended 800 mgIndications: Missed documented as of this encounter (statuses as of 01/05/2019) Active Problems Problem Noted Date High risk [...] as of this encounter (statuses as of 01/05/2019) Social History Tobacco Use Types Packs/Day Years [...] Sign Reading Time Taken Comments Blood Pressure 126/80 01/05/2019 11:25 AM CDT Pulse 84 01/05/2019 11:25 AM CDT Temperature 37.1 C (98.7 F) 01/05/2019 11:25 AM CDT Respiratory Rate 18 01/05/2019 11:25 AM CDT Oxygen Saturation - - Inhaled Oxygen Concentration - - Weight 102.7 kg (226 lb 6 oz) 01/05/2019 11:25 AM CDT Height 162.6 cm (5' 4") 01/05/2019 11:25 AM CDT Body Mass Index 38.86 01/05/2019 11:25 AM CDT documented in this encounter Progress Notes Isabelle Catalan MD - 01/05/2019 10:45 AM CDT Chief complaint: Chief Complaint Patient presents with MISSED HPI Melanie Paz is a 28 year old female who presents for f/u. Misoprostol was placed01/02 after TVUS showing a CRL of 14 mm with absent cardiac activity. She reports she had vaginal bleeding beginning 01/02 and passed clots. She describes her clots as "strings of mucus." She does not feel as if she passed tissue. She is still experiencing cramping and VB today but feels her bleeding has "evened out." Histories OB History Para Term AB Living [...] Procedure Laterality Date DILATION AND CURETTAGE (SHX) 2010 OOPHORECTOMY 11/2015 Social History Socioeconomic History Marital [...] Last attempt to quit: 10/22/2018 Years since quittin.2 Smokeless tobacco: Never Used Substance and Sexual Activity Alcohol use: Not Currently Drug use: Never Sexual activity: Yes Partners: Male control/protection: None Comment: last sexual intercourse 12/18/2018 Lifestyle Physical activity: Days per week: Not on file Minutes per session: Not on file Stress: Not on file Relationships Social connections: Talks on phone: Not on file Gets together: Not on file Attends church service: Not on file Active member of [...] Concern Not on file Social History Narrative Pentecostalism preference is Quaker. Patient lives with parents. Social History Substance and Sexual Activity Sexual Activity Yes Partners: Male control/protection: None Comment: last sexual intercourse 12/18/2018 Labs All labs are within normal limits. Radiology No new radiology. Allergies Melanie has No Known Allergies. Medications Melanie has a current medication list which includes the following prescription(s ): hydrocodone-acetaminophen, ibuprofen, and vit calc,iron,folic. Review of Systems Constitutional: Negative. HENT: Negative. Eyes: Negative. Respiratory: Negative. Breasts: Negative. Cardiovascular: Negative. Gastrointestinal: Positive for abdominal pain. Genitourinary: Positive for vaginal bleeding. Musculoskeletal: Negative. Skin: Negative. Neurological: Negative. Psychiatric/Behavioral: Negative. Endocrine: Endocrine negative BP 126/80 (BP Location: Right arm, Patient Position: Sitting, BP CUFF SIZE: Adult Medium) | Pulse 84 | Temp 37.1 C (98.7 F) (Oral) | Resp 18 | Ht 5 ' 4" (1.626 m) | Wt 226 lb 6 oz (102.7 kg) |LMP 10/08/2018 (Exact Date) | BMI 38.86 kg/m Pregravid BMI: 38.8 Physical Exam Vitals reviewed. Constitutional: She is oriented to person, place, and time. Neck: No mass. Cardiovascular: No peripheral edema present. Pulmonary/Chest: Normal inspiratory effort. Abdominal: Abdomen is soft. No tenderness present. There is no rigidity and no guarding. Neuro/Psychiatric: She has a normal mood and affect. She is oriented to person, place, and time. Skin: Skin normal. Assessment/Plan Missed (primary encounter diagnosis) Plan: miSOPROStol (CYTOTEC) tablet 800 mcg, ibuprofen (IBU) tablet 800 mg, HYDROcodone-acetaminophen 5-325 mg tablet, ibuprofen 800 mg tablet - Reports VB/"strings of mucus" and cramping, no large clots, does not feel like she passed tissue. VB "evened out." - Second dose of misoprostol placed in clinic today - F/u in Beta 01/10 - Bleeding precautions given This visit did not involve counseling and coordination that comprised more than 50% of the visit time. Isabelle Catalan MD 01/05/2019 12:17 PM documented in this encounter Plan of Treatment Date Type Specialty Care Team Description 01/11/2019 Routine Visit OB Satellites [facility], [facility] Res-1st 01/19/2019 Routine Visit OB Satellites Tootie Hinds, PRIMARY SUBSTANCE ABUSE COUNSELOR [address] [facility] [place], [place] [id number] Health Maintenance Due Date Last Done Comments VARICELLA VACCINES (1 of 2 - + 02/09/2001 2-dose series) DTaP,Tdap,and Td Vaccines (1 [...] Site ibuprofen (IBU) tablet 800 mg Given 01/05/2019 11:45 AM CDT 800 mg 800 mg, Oral, ONCE, 1 dose, Tue01/05/19 at 1245, Routine miSOPROStol (CYTOTEC) tablet 800 mcg Given 01/05/2019 11:45 AM CDT 800 mcg 800 mcg, Vaginal, ONCE, 1 dose, Tue01/05/19 at 1245, Routine documented in this encounter Insurance Payer Benefit Plan / Subscriber ID Effective Dates Phone Address Type Group [employer] MEDICAID OF xxxxxxxxx 2018-Present [phone] [address] [place] [id number] [place] [phone] documented as of this encounter Advance Directives Name Relationship Healthcare Agent Relationship Communication Arminda Leonardohortensia Mother Primary healthcare agent Minda Zaragoza Grandparent First alternate healthcare agent [phone] (Home )
--- OUTSIDE RECORDS SUMMARY | 2019-04-29 13:51 | XMS REPORT | Summary of Care ---
:1990 Author Organization [facility] Address [address] [place] [address] Care Team Providers Name Role Phone Tootie Hinds [facility] Primary Care Provider Reason for Visit Reason Comments Assessment needs to discuss Beta Encounter Details Date Type Department Care Team Description 01/12/2019 Telephone [facility]- Tootie Hinds, Assessment ( needs to [facility] discuss Beta ) [address] [facility] [address] [facility] [place] [address] [place], [place] [id number] Allergies No Known Allergiesdocumented as of this encounter (statuses as of 01/12/2019) Medications Medication Sig Dispensed Refills Start Date End Date Status vit Take by mouth. 0 Active calc,iron,folic ( VITAMIN ORAL) HYDROcodone-acetaminop Take 1 tablet by 5 tablet 0 01/05/2019 Active hen 5-325 mg mouth every 6 tabletIndications: (six) hours as Missed needed for Pain (scale 4-6) or Pain (scale 7-10). ibuprofen 800 mg Take 1 tablet by 10 tablet 0 01/05/2019 Active tabletIndications: mouth every 8 Missed (eight) hours as needed (prn pain). documented as of this encounter (statuses as of 01/12/2019) Active Problems Problem Noted Date ASCUS of cervix with negative high risk HPV 01/08/2019 Overview: 12/2018 ASCUS and HPV negative, per [facility] repeat pap in 3 years (2021) High risk , antepartum 12/22/2018 History of prediabetes 12/22/2018 PCOS (polycystic ovarian syndrome) 12/22/2018 Abnormal urinalysis 12/22/2018 Cessation of tobacco use in previous 12 months 12/22/2018 Elevated BP without diagnosis of hypertension 12/22/2018 Obesity affecting , antepartum 12/22/2018 BMI 38.0-38.9,adult 12/22/2018 documented as of this encounter (statuses as of 01/12/2019) Social History Tobacco Use Types Packs/Day Years Used Date Former Smoker Cigarettes Quit: 10/22/2018 Smokeless Tobacco: Never Used Alcohol Use Drinks/Week oz/Week Comments Not Currently Sex Assigned at Date Recorded Not on [...] 01/19/2019 Routine Visit OB Satellites Tootie Hinds, CABIN EQUIPMENT SUPERVISOR [address] [place] [address] [phone] Health Maintenance Due Date Last Done Comments VARICELLA VACCINES (1 of 2 - 02/09/2001 13+ 2-dose series) DTaP,Tdap,and Td Vaccines (1 02/09/2007 - Tdap) INFLUENZA VACCINE (#1) 2018 PAP SMEAR 12/22/2021 12/22/2018, 06/03/2009 PNEUMOCOCCAL 0-64 YEARS Aged Out No longer eligible based COMBINED SERIES on patient's age to complete this topic documented as of this encounter Results Not on filedocumented in this encounter Insurance Payer Benefit Plan / Subscriber ID Effective Dates Phone Address Type Group [facility] MEDICAID OF xxxxxxxxx 2018-Present [phone] [address] [place] [address] [place] [address] documented as of this encounter Advance Directives Name Relationship Healthcare Agent Relationship Communication Arminda Paz Mother Primary healthcare agent Minda Zaragoza Grandparent First alternate healthcare agent [phone] (Home )
--- OUTSIDE RECORDS SUMMARY | 2019-04-29 13:51 | XMS REPORT | Summary of Care ---
:1990 Author Organization [address] [address] Care Team Providers Name Role Phone Tootie Hinds Primary Care Provider Reason for Visit Reason Comments Assessment Encounter Details Date Type Department Care Team Description 01/11/2019 Telephone [facility] Jaqueline Talavera FNP Assessment [address] [address] [place] [address] [place] [address] Allergies No Known Allergiesdocumented as [...] 01/19/2019 Routine Visit [facility] Tootie Hinds, HEAD OF ACADEMIC TECHNOLOGY [address] [place] [address] [phone] Health Maintenance Due Date Last Done Comments [...] ID Effective Dates Phone Address Type Group [facility] MEDICAID OF xxxxxxxxx 2018-Present [phone] [address] [place] [address] [place] [address] documented as of this encounter Advance Directives Name Relationship Healthcare Agent Relationship Communication Arminda Paz Mother Primary healthcare agent Minda Zaragoza Grandparent First alternate healthcare agent [phone] (Home )
--- OUTSIDE RECORDS SUMMARY | 2019-04-29 13:51 | XMS REPORT | Summary of Care ---
:1990 Author Organization [facility] Address [address] [place] [address] Care Team Providers Name Role Phone Tootie Hinds Primary Care Provider Reason for Visit Reason Comments Lab Results Encounter Details Date Type Department Care Team Description 01/08/2019 Telephone [facility]- Tootie Greene FNP Lab Results [address] [place] [address] [place] [phone] [place] [address] Allergies No Known Allergiesdocumented as of this encounter (statuses as of 01/08/2019) Medications Medication Sig Dispensed Refills Start Date [...] as of this encounter (statuses as of 01/08/2019) Active Problems Problem Noted Date ASCUS of [...] as of this encounter (statuses as of 01/08/2019) Social History Tobacco Use Types Packs/Day Years [...] Team Description 01/11/2019 Routine Visit [facility], [facility] Res-1st 01/19/2019 Routine Visit [facility] Tootie Hinds, WIRE BENDER [address] [place] [address] [phone] Health Maintenance Due Date Last Done Comments [...] Type Group [facility] MEDICAID OF xxxxxxxxx 2018-Present [phone] [address] [place] [id number] [place] [address] documented as of this encounter Advance Directives Name Relationship Healthcare Agent Relationship Communication Arminda Paz Mother Primary healthcare agent Minda Thompsonlap Grandparent First alternate healthcare agent [phone] (Home )
[2019-04-29] MEDS ORDERED: IPRATROPIUM BROM 0.5MG/2.5ML ONE (16:11)
[2019-04-29] MEDS ORDERED: ALBUTEROL 2.5 MG/3 ML NEB SOL ONE (16:11)
[2019-04-29] MEDS ORDERED: predniSONE 20 MG TAB ONE (16:12)
--- NOTE | 2019-04-29 16:13 | RAD REPORT ---
EXAM DESCRIPTION: RAD - Chest Pa And Lat (2 Views) - 04/29/2019 4:06 pm CLINICAL HISTORY: COUGH Chest pain. COMPARISON: Chest Single View dated 12/07/2016; Chest Pa And Lat (2 Views) dated 02/12/2016 FINDINGS: Small linear opacities seen in the left retrocardiac region which may represent atelectasi s or a small early infiltrate. The heart is normal in size. No displaced fractures.
--- NOTE | 2019-04-29 16:49 | EDPHYS ---
Physician Documentation [facility] Name: Melanie Paz Age: 29 yrs Sex: Female : 1990 Arrival Date: 04/29/2019 Time: 13:50 Bed 16 Private MD: ED Physician Siva Hankins HPI: 04/29 14:56 This 29 yrs old Black Female presents to ER via Ambulatory with complaints of Cough, pm1 Congestion, Sore Throat, Breathing Difficulty. 14:56 The patient or guardian reports cough, with productive sputum, that is green. pm1 14:56 Onset: The symptoms/episode began/occurred 3 day(s) ago. Severity of symptoms: in the pm1 emergency department the symptoms are actually worse. Modifying factors: The symptoms are alleviated by nothing, the symptoms are aggravated by nothing. Associated signs and symptoms: Pertinent positives: sore throat, shortness of breath, rib pain with coughing, Pertinent negatives: chest pain, ear ache, fever. The patient has not experienced similar symptoms in the past. It is unknown whether or not the patient has recently seen a physician. 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 - Social history:: Smoking status: Patient uses tobacco products, denies chronic smoking, but will smoke occasionally. - Ebola Screening: : Patient negative for fever greater than or equal to 101.5 degrees Fahrenheit, and additional compatible Ebola Virus Disease symptoms Patient denies exposure to infectious person Patient denies travel to an Ebola-affected area in the 21 days before illness onset No symptoms or risks identified at this time. ROS: 14:56 Constitutional: Negative for fever, chills, and weight loss, Eyes: Negative for injury, pm1 pain, redness, and discharge. 14:56 Neck: Negative for injury, pain, and swelling, Cardiovascular: Negative for chest pain, palpitations, and edema. 14:56 Abdomen/GI: Negative for abdominal pain, nausea, vomiting, diarrhea, and constipation, Back: Negative for injury and pain, : Negative for injury, bleeding, discharge, and swelling, MS/Extremity: Negative for injury and deformity, Skin: Negative for injury, rash, and discoloration, Neuro: Negative for headache, weakness, numbness, tingling, and seizure. 14:56 ENT: Positive for hoarseness, sore throat, Negative for drainage from ear(s), ear pain, sinus congestion, sinus pain, difficulty swallowing, difficulty handling secretions. 14:56 Respiratory: Positive for cough, with green sputum, shortness of breath, Negative for wheezing. Exam: 14:56 Constitutional: This is a well developed, well nourished patient who is awake, alert, pm1 and in no acute distress. Head/Face: Normocephalic, atraumatic. Eyes: Pupils equal round and reactive to light, extra-ocular motions intact. Lids and lashes normal. Conjunctiva and sclera are non-icteric and not injected. Cornea within normal limits. Periorbital areas with no swelling, redness, or edema. 14:56 Neck: Trachea midline, no thyromegaly or masses palpated, and no cervical lymphadenopathy. Supple, full range of motion without nuchal rigidity, or vertebral point tenderness. No Meningismus. Chest/axilla: Normal chest wall appearance and motion. Nontender with no deformity. No lesions are appreciated. Cardiovascular: Regular rate and rhythm with a normal S1 and S2. No gallops, murmurs, or rubs. Normal PMI, no JVD. No pulse deficits. 14:56 Abdomen/GI: Soft, non-tender, with normal bowel sounds. No distension or tympany. No guarding or rebound. No evidence of tenderness throughout. Back: No spinal tenderness. No costovertebral tenderness. Full range of motion. Skin: Warm, dry with normal turgor. Normal color with no rashes, no lesions, and no evidence of cellulitis. MS/ Extremity: Pulses equal, no cyanosis. Neurovascular intact. Full, normal range of motion. 14:56 ENT: External ear(s): are unremarkable, Ear canal(s): are normal, TM's: are normal, Nose: is normal, Mouth: is normal, Posterior pharynx: Airway: normal, no evidence of obstruction, patent, Tonsils: bilaterally enlarged, with erythema, no exudate, no ulcerations, erythema, that is mild, peritonsillar mass, is not appreciated, pooling of secretions, is not appreciated. 14:56 Respiratory: the patient does not display signs of respiratory distress, Breath sounds: bronchial sounds, are heard in the right posterior middle lobe. 14:56 Neuro: Orientation: is normal, Motor: is normal, moves all fours. Vital Signs: 14:27 BP 165 / 100; Pulse 97; Resp 18 S; Temp 98.9(O); Pulse Ox 99% on R/A; Weight 68.95 kg ca1 (R); Height 5 ft. 4 in. (162.56 cm) (R); Pain 8/10; 17:55 BP 134 / 97; Pulse 86; Resp 17; Pulse Ox 100% on R/A; ss 14:27 Body Mass Index 26.09 (68.95 kg, 162.56 cm) ca1 MDM: 14:56 Patient medically screened. pm1 16:34 Data reviewed: vital signs. Data interpreted: Pulse oximetry: on room air is 99 %. pm1 Interpretation: normal. Counseling: I had a detailed discussion with the patient and/or guardian regarding: the historical points, exam findings, and any diagnostic results supporting the discharge/admit diagnosis, lab results, radiology results, the need for outpatient follow up, to return to the emergency department if symptoms worsen or persist or if there are any questions or concerns that arise at home. 04/29 14:29 Order name: Flu; Complete Time: 15:02 ca1 04/29 14:29 Order name: Strep; Complete Time: 14:56 ca1 04/29 14:56 Order name: Throat Culture EDWI 04/29 15:20 Order name: Chest Pa And Lat (2 Views) XRAY; Complete Time: 16:34 pm1 Administered Medications: 16:00 Drug: Albuterol 2.5 mg Route: Inhalation; jl7 16:15 Follow up: Response: No adverse reaction jl7 16:00 Drug: AtroVENT Aerosol 0.5 mg Route: Inhalation; jl7 16:15 Follow up: Response: No adverse reaction jl7 16:00 Drug: predniSONE 60 mg Route: PO; jl7 16:15 Follow up: Response: No adverse reaction jl7 17:35 Drug: Rocephin (cefTRIAXone) 1 grams Route: IM; Site: right gluteus; jl7 17:50 Follow up: Response: No adverse reaction 7 17:35 Drug: Tussionex Pennkinetic ER 5 ml Route: PO; 7 17:50 Follow up: Response: No adverse reaction; Pain is decreased jl7 Disposition: 04/30 07:30 Co-signature as Attending Physician, Siva Hankins MD I agree with the assessment and angelica plan of care. Disposition: 04/29/19 16:44 Discharged to Home. Impression: Pneumonia, unspecified organism. - Condition is Stable. - Discharge Instructions: Community-Acquired Pneumonia, Adult. - Prescriptions for Zithromax Z- Mitch 250 mg Oral Tablet - take 1 tablet by ORAL route as directed for 5 days Day 1 - take two (2) tablets one time. Day 2, 3, 4 , 5 take one (1) tablet once daily.; 6 tablet. Albuterol Sulfate 90 mcg/actuation - inhale 1-2 puff by INHALATION route every 4-6 hours; 1 Inhaler. Guaifenesin AC 10- 100 mg/5 mL Oral Liquid - take 10 milliliter by ORAL route every 4 hours As needed; 240 milliliter. - Medication Reconciliation Form, Thank You Letter, Antibiotic Education, Prescription Opioid Use form. - Follow up: Emergency Department; When: As needed; Reason: Worsening of condition. Follow up: Private Physician; When: 2 - 3 days; Reason: Recheck today's complaints, Continuance of care, Re-evaluation by your physician. - Problem is new. - Symptoms have improved. Signatures: Dispatcher [employer] EDWI Siva Hankins MD MD cha Smirch, Shelby, RN RN ss Cheng Liu, MOTOR RACER MOTOR RACER pm1 Mango Perez RN RN jl7 Brenda Pierce RN RN ca1 Corrections: (The following items were deleted from the chart) 04/29 17:56 16:44 04/29/2019 16:44 Discharged to Home. Impression: Pneumonia, unspecified organism. ss Condition is Stable. Forms are Medication Reconciliation Form, Thank You Letter, Antibiotic Education, Prescription Opioid Use. Follow up: Emergency Department; When: As needed; Reason: Worsening of condition. Follow up: Private Physician; When: 2 - 3 days; Reason: Recheck today's complaints, Continuance of care, Re-evaluation by your physician. Problem is new. Symptoms have improved. pm1
--- NOTE | 2019-04-29 16:49 | ER ---
Nurse's Notes [facility] Name: Melanie Paz Age: 29 yrs Sex: Female : 1990 Arrival Date: 04/29/2019 Time: 13:50 Bed 16 Private MD: Diagnosis: Pneumonia, unspecified organism Presentation: 04/29 14:23 Presenting complaint: Patient states: "3 days ago I lost my voice and my throat was ca1 little scratchy. Cough followed the next day with thick mucous. My throat feels very sore and it hurts to swallow". Reports low grade fever 3 days ago. Pt is drinking coffee in the lobby. Transition of care: patient was not received from another setting of care. Onset of symptoms was April 29, 2019. Risk Assessment: Do you want to hurt yourself or someone else? Patient reports no desire to harm self or others. Initial Sepsis Screen: Does the patient meet any 2 criteria? No. Patient's initial sepsis screen is negative. Does the patient have a suspected source of infection? No. Patient's initial sepsis screen is negative. Care prior to arrival: None. 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 - Social history:: Smoking status: Patient uses tobacco products, denies chronic smoking, but will smoke occasionally. - Ebola Screening: : Patient negative for fever greater than or equal to 101.5 degrees Fahrenheit, and additional compatible Ebola Virus Disease symptoms Patient denies exposure to infectious person Patient denies travel to an Ebola-affected area in the 21 days before illness onset No symptoms or risks identified at this time. Screenin:00 Abuse screen: Denies threats or abuse. Denies injuries from another. Nutritional ss screening: No deficits noted. Tuberculosis screening: Never had TB. Fall Risk None identified. Assessment: 15:00 General: Appears in no apparent distress. uncomfortable, Behavior is calm, cooperative, jl7 appropriate for age. Pain: Complains of pain in chest from coughing Pain currently is 8 out of 10 on a pain scale. Neuro: Level of Consciousness is awake, alert, obeys commands, Oriented to person, place, time, situation. Cardiovascular: Patient's skin is warm and dry. Respiratory: Airway is patent Respiratory effort is even, unlabored, Respiratory pattern is regular, symmetrical, Breath sounds are clear bilaterally. Derm: Skin is pink, warm \\T\\ dry. 16:00 Reassessment: Patient appears in no apparent distress at this time. No changes from jl7 previously documented assessment. Patient and/or family updated on plan of care and expected duration. Pain level reassessed. Patient is alert, oriented x 3, equal unlabored respirations, skin warm/dry/pink. 17:55 Reassessment: Patient appears in no apparent distress at this time. Patient and/or ss family updated on plan of care and expected duration. Pain level reassessed. Patient is alert, oriented x 3, equal unlabored respirations, skin warm/dry/pink. Vital Signs: 14:27 BP 165 / 100; Pulse 97; Resp 18 S; Temp 98.9(O); Pulse Ox 99% on R/A; Weight 68.95 kg ca1 (R); Height 5 ft. 4 in. (162.56 cm) (R); Pain 8/10; 17:55 BP 134 / 97; Pulse 86; Resp 17; Pulse Ox 100% on R/A; ss 14:27 Body Mass Index 26.09 (68.95 kg, 162.56 cm) ca1 ED Course: 13:50 Patient arrived in ED. mr 14:26 Triage completed. ca1 14:27 Arm band placed on right wrist. ca1 14:37 Cheng Liu NP is PHCP. pm1 14:37 Siva Hankins MD is Attending Physician. pm1 15:00 Patient has correct armband on for positive identification. Bed in low position. Call ss light in reach. 15:36 Mango Perez, VIDHI is Primary Nurse. jl7 16:04 Chest Pa And Lat (2 Views) XRAY In Process Unspecified. EDMS 17:54 No provider procedures requiring assistance completed. Patient did not have IV access ss during this emergency room visit. Administered Medications: 16:00 Drug: Albuterol 2.5 mg Route: Inhalation; jl7 16:15 Follow up: Response: No adverse reaction 7 16:00 Drug: AtroVENT Aerosol 0.5 mg Route: Inhalation; jl7 16:15 Follow up: Response: No adverse reaction 7 16:00 Drug: predniSONE 60 mg Route: PO; jl7 16:15 Follow up: Response: No adverse reaction jl7 17:35 Drug: Rocephin (cefTRIAXone) 1 grams Route: IM; Site: right gluteus; jl7 17:50 Follow up: Response: No adverse reaction 7 17:35 Drug: Tussionex Pennkinetic ER 5 ml Route: PO; jl7 17:50 Follow up: Response: No adverse reaction; Pain is decreased jl7 Outcome: 16:44 Discharge ordered by . pm1 17:54 Discharged to home ambulatory. ss 17:54 Condition: good 17:54 Discharge instructions given to patient, family, Instructed on discharge instructions, follow up and referral plans. medication usage, Demonstrated understanding of instructions, follow-up care, medications, Prescriptions given X 3. 17:56 Patient left the ED. ss Signatures: Dispatcher [employer] [facility] Ismael Melanie AbbieEmily pugh RN RN ss Cheng Liu, АЛЕКСАНДР SHIP ERECTOR pm1 Mango Perez RN RN jl7 Brenda Pierce RN RN ca1
[2019-04-29] MEDS ORDERED: CEFTRIAXONE 1000 MG/VIAL ONE (17:27)
[2019-04-29] MEDS ORDERED: HYDROCODONE/CHLORPHEN 5 ML/OSYR ONE (17:27)
[2019-04-29 18:55] VITALS: TEMP 98.9
[2019-04-29 18:56] VITALS: BP 134/97; O2SAT 100
== END 2019-04-29 17:56 | disposition home or self-care (01) ==
LOC: ER 13:48
DX: J18.9 Pneumonia, unspecified organism (principal); Z72.0 Tobacco use
CPT/HCPCS: 87070; 87081; 87804 ×2; 71046; 96372; 99284; J7512

== ENCOUNTER 2019-07-06 22:34 | Emergency (ER) | payer OTHER ==
--- OUTSIDE RECORDS SUMMARY | 2019-07-06 22:35 | XMS REPORT ---
:1990 [facility] Address [address] [place] [address] [address] [place] [address] Care Team Providers Name Role Phone Unavailable Unavailable Unavailable Problems This patient has no known problems. Allergies, Adverse Reactions, Alerts This patient has no known allergies or adverse reactions. Medications This patient has no known medications.
--- OUTSIDE RECORDS SUMMARY | 2019-07-06 22:38 | XMS REPORT | Summary of Care ---
:1990 Author Organization [facility] Address [address] [place] [address] Care Team Providers Name Role Phone Tootie Hinds [facility] Primary Care Provider Reason for Visit Reason Comments Assessment cycle for 24 days Encounter Details Date Type Department Care Team Description 06/07/2019 Telephone [facility]- Tootie Hinds, Assessment ( cycle for [facility] 24 days ) [address] [facility] [address] [place], [place] [id number] Allergies No Known Allergiesdocumented as of this encounter (statuses as of 06/07/2019) Medications Medication Sig Dispensed Refills Start Date End Date Status vit Take by mouth. 0 Active calc,iron,folic ( VITAMIN ORAL) documented as of this encounter (statuses as of 06/07/2019) Active Problems Problem Noted Date ASCUS of cervix with negative high risk HPV 01/08/2019 Overview: 12/2018 ASCUS and HPV negative, per [facility] repeat pap in 3 years (2021) History of prediabetes 12/22/2018 PCOS (polycystic ovarian syndrome) 12/22/2018 Cessation of tobacco use in previous 12 months 12/22/2018 Elevated BP without diagnosis of hypertension 12/22/2018 Obesity affecting , antepartum 12/22/2018 BMI 38.0-38.9,adult 12/22/2018 documented as of this encounter (statuses as of 06/07/2019) Resolved Problems Problem Noted Date Resolved Date High risk , antepartum 12/22/2018 01/29/2019 Abnormal urinalysis 12/22/2018 01/29/2019 documented as of this encounter (statuses as of 06/07/2019) Social History Tobacco Use Types Packs/Day Years [...] Treatment Date Type Specialty Care Team Description 06/11/2019 Office Visit [facility] Heidy Car, WHCNP [address] [place] [address] [phone] Health Maintenance Due Date Last Done Comments DTaP,Tdap,and Td Vaccines (1 02/09/1999 - Tdap) INFLUENZA VACCINE (#1) 2018 PAP SMEAR 12/22/2021 12/22/2018, 06/03/2009 PNEUMOCOCCAL 0-64 YEARS Aged Out No longer eligible based COMBINED SERIES on patient's age to complete this topic VARICELLA VACCINES Discontinued documented as of this encounter Results Not on filedocumented in this encounter Insurance Payer Benefit Plan / Subscriber ID Effective Phone Address Type Group Dates [employer] xxxxxxxxx 2018-Partha P.Ondina MCCRACKEN Medicaid HEALTH CHOICE - HEALTH CHOICE [id number] MANAGED MEDICAID [place], [place] [phone] documented as of this encounter Advance Directives Name Relationship Healthcare Agent Relationship Communication Arminda Paz Mother Primary healthcare agent Minda Zaragoza Grandparent First alternate healthcare agent [phone] (Home )
--- OUTSIDE RECORDS SUMMARY | 2019-07-06 22:38 | XMS REPORT | Summary of Care ---
:1990 Author Organization [facility] Address [address] [place] [address] Care Team Providers Name Role Phone Guzman Tootie JONES Primary Care Provider Reason for Visit Reason Comments PSYCHOLOGIST MILITARY PERSONNEL problem Irregular Bleeding Encounter Details Date Type Department Care Team Description 06/11/2019 Office Visit [facility]- Heidy Car Other general counseling and advice for contraceptive management (Primary Dx); Maria Esther Coello, WHCNP Irregular menstrual cycle; [address] examination or test, positive result [place], [place] [address] [place], [place] [address] Allergies No Known Allergiesdocumented as of this encounter (statuses as of 06/12/2019) Medications Medication Sig Dispensed Refills Start Date End Date Status vit Take by mouth. 0 Active calc,iron,folic ( VITAMIN ORAL) documented as of this encounter (statuses as of 06/12/2019) Active Problems Problem Noted Date Irregular menstrual cycle 06/11/2019 Other general counseling and advice for contraceptive management 06/11/2019 ASCUS of cervix with negative high risk [...] as of this encounter (statuses as of 06/12/2019) Resolved Problems Problem Noted Date Resolved Date High risk , antepartum 12/22/2018 01/29/2019 Abnormal urinalysis 12/22/2018 01/29/2019 documented as of this encounter (statuses as of 06/12/2019) Social History Tobacco Use Types Packs/Day Years [...] Sign Reading Time Taken Comments Blood Pressure 136/87 06/11/2019 4:23 PM WAFER FAB OPERATOR Pulse 97 06/11/2019 4:23 PM WAFER FAB OPERATOR Temperature 37.4 C (99.4 F) 06/11/2019 4:23 PM WAFER FAB OPERATOR Respiratory Rate 16 06/11/2019 4:23 PM WAFER FAB OPERATOR Oxygen Saturation - - Inhaled Oxygen Concentration - - Weight 99.9 kg (220 lb 5 oz) 06/11/2019 4:23 PM WAFER FAB OPERATOR Height 162.6 cm (5' 4") 06/11/2019 4:23 PM WAFER FAB OPERATOR Body Mass Index 37.82 06/11/2019 4:23 PM WAFER FAB OPERATOR documented in this encounter Progress Notes Heidy Car, WHCNP - 06/11/2019 4:00 PM CST Chief complaint: Chief Complaint Patient presents with PSYCHOLOGIST MILITARY PERSONNEL problem Irregular Bleeding HPI : the patient is here today because she reports she has been on her cycle for the past 29 days. She reports that the last time she had a menses that lasted this long she was having a miscarriage. She reports that she has pcos so her cycle are irregular. She reports that since her last miscarriage in 11/2018 , she did not have a menses in January/february, then she reports she then had a cycle in March. She reports she started her cycle that started on 05/14/19 and it has not stopped since. Shereports bleeding just about daily. She report that the cycle is too heavy for a pantyliner but not heavy enough to where she is soaking a pad, she reports passing clots the size of a dime today and reports it was two clots. She reports that the clots were more of a solid consistency different to what they have been in the past. Histories OB History Para Term AB Living 2 2 SAB TAB Ectopic Multiple Live Births 2 # Outcome Date GA Lbr Regino/2nd Weight Sex Delivery Anes PTL Lv 2 SAB 01/01/19 12w1d 1 08/2018 3w0d Past Medical History: Diagnosis Date Anxiety resolved ASCUS of cervix with negative high risk HPV 01/08/2019 History of prediabetes 12/22/2018 Irregular menstrual cycle 06/11/2019 PCOS (polycystic ovarian syndrome) 2012 PCOS (polycystic [...] Last attempt to quit: 10/22/2018 Years since quittin.6 Smokeless tobacco: Never Used Substance and Sexual Activity Alcohol use: Not Currently Drug use: Never Sexual activity: Yes Partners: Male control/protection: None Comment: last sexual intercourse 12/18/2018 Lifestyle Physical activity: Days per week: Not on file Minutes per session: Not on file Stress: Not on file Relationships Social connections: Talks on phone: Not on file Gets together: Not on file Attends spiritism service: Not on file Active member of [...] Concern Not on file Social History Narrative Synagogue preference is Spiritism. Patient lives with parents. Social History Substance and Sexual Activity Sexual Activity Yes Partners: Male control/protection: None Comment: last sexual intercourse 12/18/2018 Labs Labs are pending. Radiology No new radiology. Allergies Melanie has No Known Allergies. Medications Melanie has a current medication list which includes the following prescription(s ): vit calc,iron,folic. Review of Systems Constitutional: Negative. HENT: Negative. Eyes: Negative. Respiratory: Negative. Breasts: Negative. Cardiovascular: Negative. Gastrointestinal: Negative. Genitourinary: Positive for vaginal bleeding. Musculoskeletal: Negative. Skin: Negative. Neurological: Negative. Psychiatric/Behavioral: Negative. Endocrine: Endocrine negative BP 136/87 (BP Location: Right arm, Patient Position: Sitting, BP CUFF SIZE: Adult Large) | Pulse 97 | Temp 37.4 C (99.4 F) (Oral) | Resp 16 | Ht 5' 4 " (1.626 m) | Wt 220 lb 5 oz (99.9 kg) | LMP 05/14/2019 (Approximate) | BMI 37.82 kg/m Pregravid BMI: Could not be calculated Physical Exam Vitals reviewed. Constitutional: She is oriented to person, place, and time. She appears well- developed and well-nourished. Her body habitus is normal. Cardiovascular: Regular rate and rhythm. Pulmonary/Chest: Normal inspiratory effort. Neuro/Psychiatric: She has a normal mood and affect. She is oriented to person, place, and time. External genitalia: Normal external genitalia appropriate for age. Normal hair distribution. No labial lesion. Urethral meatus: Normal urethral meatus size, location and no lesion. No prolapse present. Normal urethral meatus Urethra: Normal urethra. No urethral tenderness, no mass and no urethral scarring palpated. Bladder: Bladder has no fullness, no mass palpated and no tenderness. Normal bladder Vagina:No lesion inspected. Normal estrogen effect. Normal support. Vaginal discharge found. Scant blood noted in vaginal vault Cervix: Normal cervix. No lesion. No tenderness and no discharge present. Uterus: Uterus is normal size, normal contour, normal position and non-tender. Normal uterus Adnexa: Right adnexa without tenderness, ovary enlargement or mass. Left adnexa without tenderness, ovary enlargement or mass. Normal left adnexa and normal right adnexa Assessment/Plan Return to clinic in 2 days for lab reuturn to clinic in 6 months for WWE or sooner as needed 11/2019 Other general counseling and advice for contraceptive management (primary encounter diagnosis) Comment: desire Plan: as needed mgmt Irregular menstrual cycle Comment: reports Plan: POCT TEST examination or test, positive result Comment: as ordered reports bleeding for the past 3 weeks Plan: TOTAL BETA HCG ASSAY, CBC WITH DIFF, CBC WITH DIFFERENTIAL This visit did not involve counseling and coordination that comprised more than 50% of the visit time. JESSEE Orozco 06/11/2019 4:53 PM documented in this encounter Plan of Treatment Date Type Specialty Care Team Description 06/13/2019 Electrician Helper [facility]/10/2019 Office Visit [facility] Heidy Car WHCNP [address] [place] [address] [phone] Name Type Priority Associated Diagnoses Order Schedule TOTAL BETA HCG ASSAY LAB Routine examination or 2 Occurrences starting test, positive result 06/11/2019 until 07/10/2019, 1 completed Health Maintenance Due Date Last Done Comments DTaP,Tdap,and Td Vaccines (1 02/09/1999 - Tdap) INFLUENZA VACCINE (#1) 2018 PAP SMEAR 12/22/2021 12/22/2018, 06/03/2009 PNEUMOCOCCAL 0-64 YEARS Aged Out No longer eligible based COMBINED SERIES on patient's age to complete this topic VARICELLA VACCINES Discontinued documented as of this encounter Procedures Procedure Name Priority Date/Time Associated Diagnosis Comments CBC WITH DIFFERENTIAL Routine 06/11/2019 5:01 Results for this PM WAFER FAB OPERATOR examination or test, procedure are in positive result the results section. CBC WITH DIFFERENTIAL Routine 06/11/2019 5:01 Results for this PM WAFER FAB OPERATOR examination or test, procedure are in positive result the results section. TOTAL BETA HCG ASSAY Routine 06/11/2019 5:01 Results for this PM WAFER FAB OPERATOR examination or test, procedure are in positive result the results section. POCT TEST Routine 06/11/2019 4:47 Irregular menstrual Results for this PM WAFER FAB OPERATOR cycle procedure are in the results section. documented in this encounter Results CBC WITH DIFFERENTIAL (06/11/2019 5:01 PM WAFER FAB OPERATOR) WBC 5.27 4.30 - 11.10 [facility] 10*3/L SERVICES RBC 4.56 3.93 - 5.25 [facility] 10*6/L SERVICES HGB 11.0 (L) 11.6 - 15.0 [facility] g/dL SERVICES HCT 36.3 35.7 - 45.2 % [facility] MCV 79.6 (L) 80.6 - 95.5 fL [facility] MCH 24.1 (L) 25.9 - 32.8 pg [facility] MCHC 30.3 (L) 31.6 - 35.1 [facility] g/dL SERVICES RDW-SD 49.3 39.0 - 49.9 fL [facility] RDW-CV 17.1 (H) 12.0 - 15.5 % [facility] PLT 322 166 - 358 [facility] 10*3/L SERVICES MPV 11.2 9.5 - 12.9 fL [facility] NRBC/100 WBC 0.0 0.0 - 10.0 /100 [facility] WBCs SERVICES NRBC x10^3 <0.01 10*3/L [facility] GRAN MAT (NEUT) % 66.4 % [facility] IMM GRAN % 0.40 % [facility] LYMPH % 18.2 % [facility] MONO % 11.2 % [facility] EOS % 3.2 % [facility] BASO % 0.6 % [facility] GRAN MAT x10^3(ANC) 3.50 1.88 - 7.09 [facility] 10*3/uL SERVICES IMM GRAN x10^3 <0.03 0.00 - 0.06 [facility] 10*3/uL SERVICES LYMPH x10^3 0.96 (L) 1.32 - 3.29 [facility] 10*3/uL SERVICES MONO x10^3 0.59 0.33 - 0.92 [facility] 10*3/uL SERVICES EOS x10^3 0.17 0.03 - 0.39 [facility] 10*3/uL SERVICES BASO x10^3 0.03 0.01 - 0.07 [facility] 10*3/uL SERVICES Specimen Blood - ARM, LEFT Performing Organization Address City/State/Zipcode Phone Number [facility] CLIA: [id number], [address] [place] [phone] [facility] TOTAL BETA HCG ASSAY (06/11/2019 5:01 PM WAFER FAB OPERATOR) BETA HCG 124.19 Non- female [facility] and male patients: <5 mIU/mL Specimen Blood - ARM, LEFT Narrative Performed At [facility] Gestational Age Range (mIU/mL) 1-10 Weeks [phone] 11-15 Weeks [id number] 16-22 Weeks [id number] 23-40 Weeks [id number] Biotin has been reported to cause a negative bias, interpret results relative to patient's use of biotin. Performing Organization Address City/State/Zipcode Phone Number [facility] CLIA: [id number], [address] [place] [phone] [facility] POCT TEST (06/11/2019 4:47 PM WAFER FAB OPERATOR) POCT PREG Positive On board controls acceptable Yes with C Line POCT PREG LOT # POCT PREG TEST DATE Specimen Urine - URINE, CLEAN CATCH documented in this encounter Visit Diagnoses Diagnosis Other general counseling and advice for contraceptive management - Primary Irregular menstrual cycle examination or test, positive result documented in this encounter Insurance Payer Benefit Plan / Subscriber ID Effective Phone Address Type Group Dates [facility] xxxxxxxxx 2018-Partha MCCRACKEN Medicaid HEALTH CHOICE - HEALTH [employer] [id number] MANAGED MEDICAID [place], [place] [phone] documented as of this encounter Advance Directives Name Relationship Healthcare Agent Relationship Communication Arminda Paz Mother Primary healthcare agent [phone] ([place]) Minda Zaragoza Grandparent First alternate healthcare agent [phone] (Home )
--- OUTSIDE RECORDS SUMMARY | 2019-07-06 22:38 | XMS REPORT | Summary of Care ---
:1990 Author Organization [facility] Address [address] [place] [address] Care Team Providers Name Role Phone Guzman Tootie JONES Primary Care Provider Encounter Details Date Type Department Care Team Description 06/11/2019 Orders Only [facility] Doctor Unassigned, No [address] [facility] Name [place] [phone] [place] [phone] Allergies No Known Allergiesdocumented as of this encounter (statuses as of 06/11/2019) Medications Medication Sig Dispensed Refills Start Date End Date Status vit Take by mouth. 0 Active calc,iron,folic ( VITAMIN ORAL) documented as of this encounter (statuses as of 06/11/2019) Active Problems Problem Noted Date Irregular menstrual [...] as of this encounter (statuses as of 06/11/2019) Resolved Problems Problem Noted Date Resolved Date High risk , antepartum 12/22/2018 01/29/2019 Abnormal urinalysis 12/22/2018 01/29/2019 documented as of this encounter (statuses as of 06/11/2019) Social History Tobacco Use Types Packs/Day Years [...] Date Type Specialty Care Team Description 06/13/2019 Trucking Supervisor Visit [facility], [facility] 12/10/2019 Office Visit [facility] Heidy Car, CNP [address] [place] [address] [phone] Health Maintenance Due Date Last Done Comments DTaP,Tdap,and Td Vaccines (1 02/09/1999 - Tdap) INFLUENZA VACCINE (#1) 2018 PAP SMEAR 12/22/2021 12/22/2018, 06/03/2009 PNEUMOCOCCAL 0-64 YEARS Aged Out No longer eligible based COMBINED SERIES on patient's age to complete this topic VARICELLA VACCINES Discontinued documented as of this encounter Procedures Procedure Name Priority Date/Time Associated Diagnosis Comments [id number] CONSENT Routine 06/11/2019 12:01 AM DECORATING SUPERVISOR documented in this encounter Results Not on filedocumented in this encounter Insurance Payer Benefit Plan / Subscriber ID Effective Phone Address Type Group Dates [employer] xxxxxxxxx 2018-Partha MCCRACKEN Medicaid HEALTH CHOICE - HEALTH CHOICE nt [id number] MANAGED MEDICAID [place], [place]ICAID [address] documented as of this encounter Advance Directives Name Relationship Healthcare Agent Relationship Communication Arminda Paz Mother Primary healthcare agent Minda Zaragoza Grandparent First alternate healthcare agent [phone] (Home )
--- OUTSIDE RECORDS SUMMARY | 2019-07-06 22:39 | XMS REPORT | Summary of Care ---
:1990 Author Organization [facility] Address [address] [place] [address] Care Team Providers Name Role Phone Tootie Hinds Primary Care Provider Reason for Visit Reason Comments Other missed call Encounter Details Date Type Department Care Team Description 06/15/2019 Telephone [facility] Heidy Car, Other ( missed call) [facility] [address] [facility] [address] [place] [address] [facility] [phone] [place] [address] Allergies No Known Allergiesdocumented as of this encounter (statuses as of 06/15/2019) Medications Medication Sig Dispensed Refills Start Date End Date Status vit Take by mouth. 0 Active calc,iron,folic ( VITAMIN ORAL) documented as of this encounter (statuses as of 06/15/2019) Active Problems Problem Noted Date Irregular menstrual [...] as of this encounter (statuses as of 06/15/2019) Resolved Problems Problem Noted Date Resolved Date High risk , antepartum 12/22/2018 01/29/2019 Abnormal urinalysis 12/22/2018 01/29/2019 documented as of this encounter (statuses as of 06/15/2019) Social History Tobacco Use Types Packs/Day Years [...] Treatment Date Type Specialty Care Team Description 06/20/2019 Hairpiece Stylist Visit [facility], [facility] 12/10/2019 Office Visit [facility] Heidy Car, LEONORA [address] [place] [address] [phone] Health Maintenance Due Date Last Done Comments [...] Address Type Group Dates [employer] xxxxxxxxx 2018-[address] Medicaid HEALTH CHOICE - HEALTH CHOICE nt [id number] MANAGED MEDICAID [place], [place] [phone] documented as of this encounter Advance Directives Name Relationship Healthcare Agent Relationship Communication Arminda Paz Mother Primary healthcare agent Minda Zaragoza Grandparent First alternate healthcare agent [phone] (Home )
--- OUTSIDE RECORDS SUMMARY | 2019-07-06 22:39 | XMS REPORT | Summary of Care ---
:1990 Author Organization [facility] Address [address] [place] [address] Care Team Providers Name Role Phone Tootie Hinds Primary Care Provider Reason for Visit Reason Comments LAB Encounter Details Date Type Department Care Team Description 06/13/2019 Farmworker Livestock [facility], SCENE PAINTER [address] [place] [address] [facility], [facility] examination or test, [address] [place] [address] Allergies No Known Allergiesdocumented as of this encounter (statuses as of 06/13/2019) Medications Medication Sig Dispensed Refills Start Date End Date Status vit Take by mouth. 0 Active calc,iron,folic ( VITAMIN ORAL) documented as of this encounter (statuses as of 06/13/2019) Active Problems Problem Noted Date Irregular menstrual [...] as of this encounter (statuses as of 06/13/2019) Resolved Problems Problem Noted Date Resolved Date High risk , antepartum 12/22/2018 01/29/2019 Abnormal urinalysis 12/22/2018 01/29/2019 documented as of this encounter (statuses as of 06/13/2019) Social History Tobacco Use Types Packs/Day Years [...] Treatment Date Type Specialty Care Team Description 12/10/2019 Office Visit [facility] Heidy Car, CNP [address] [place], [place] [address] Health Maintenance Due Date Last Done Comments DTaP,Tdap,and Td Vaccines (1 02/09/1999 - Tdap) INFLUENZA VACCINE (#1) 2018 PAP SMEAR 12/22/2021 12/22/2018, 06/03/2009 PNEUMOCOCCAL 0-64 YEARS Aged Out No longer eligible based COMBINED SERIES on patient's age to complete this topic VARICELLA VACCINES Discontinued documented as of this encounter Results Not on filedocumented in this encounter Visit Diagnoses Diagnosis examination or test, positive result documented in this encounter Insurance Payer Benefit Plan / Subscriber ID Effective Phone Address Type Group Dates [facility] xxxxxxxxx 2018-Partha [address] Medicaid HEALTH CHOICE - HEALTH CHOICE nt [id number] MANAGED MEDICAID [place], [place]ID [phone] documented as of this encounter Advance Directives Name Relationship Healthcare Agent Relationship Communication Arminda Pza Mother Primary healthcare agent Minda Bondparent First [facility] [place] healthcare agent [phone] (Home )
--- OUTSIDE RECORDS SUMMARY | 2019-07-06 22:39 | XMS REPORT | Summary of Care ---
:1990 Author Organization [facility] Address [address] [place] [address] Care Team Providers Name Role Phone Guzman Tootie Horvath CORRECTION OFFICER PENITENTIARY Primary Care Provider Reason for Visit Reason Comments Error Encounter Details Date Type Department Care Team Description 06/14/2019 Telephone [facility] Heidy Car, Error [address] [place] [address] [phone] [place] [address] Allergies No Known Allergiesdocumented as of this encounter (statuses as of 06/14/2019) Medications Medication Sig Dispensed Refills Start Date End Date Status vit Take by mouth. 0 Active calc,iron,folic ( VITAMIN ORAL) documented as of this encounter (statuses as of 06/14/2019) Active Problems Problem Noted Date Irregular menstrual [...] as of this encounter (statuses as of 06/14/2019) Resolved Problems Problem Noted Date Resolved Date High risk , antepartum 12/22/2018 01/29/2019 Abnormal urinalysis 12/22/2018 01/29/2019 documented as of this encounter (statuses as of 06/14/2019) Social History Tobacco Use Types Packs/Day Years [...] [facility] Heidy Car, CNP [address] [place] [address] [phone] Health Maintenance Due Date Last Done Comments [...] Medicaid HEALTH CHOICE - HEALTH CHOICE nt [id number] MANAGED MEDICAID [place] [phone] documented as of this encounter Advance Directives Name Relationship Healthcare Agent Relationship Communication Arminda Paz Mother Primary healthcare agent Minda Zaragoza Grandparent First alternate healthcare agent [phone] (Home )
--- OUTSIDE RECORDS SUMMARY | 2019-07-06 22:39 | XMS REPORT | Summary of Care ---
:1990 Author Organization [facility] Address [address] [place] [address] Care Team Providers Name Role Phone Guzman Tootie JONES Primary Care Provider Reason for Visit Reason Comments LAB Encounter Details Date Type Department Care Team Description 06/12/2019 Telephone [facility] Heidy Car, LAB [address] [place] [address] [address] [facility] [phone] [place] [address] Allergies No Known Allergiesdocumented as [...] Date Type Specialty Care Team Description 06/13/2019 Senior Research Project Manager [facility]/10[facility]2019 Office Visit [facility] Heidy Car, CNP [address] [place] [address] [phone] Health Maintenance Due Date Last Done Comments [...] Subscriber ID Effective Phone Address Type Group [facility] COMM[employer] COMMUNITY xxxxxxxxx 2018-Partha [address] Medicaid HEALTH CHOICE - HEALTH CHOICE nt [id number] MANAGED MEDICAID [place], [place] [phone] documented as of this encounter Advance Directives Name Relationship Healthcare Agent Relationship Communication Arminda Paz Mother Primary healthcare agent Minda Zaragoza Grandparent First alternate healthcare agent [phone] (Home )
--- OUTSIDE RECORDS SUMMARY | 2019-07-06 22:39 | XMS REPORT | Summary of Care ---
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 Irregular Bleeding Encounter Details Date Type Department Care Team Description 06/11/2019 Office Visit [facility]- Heidy Car Other general counseling and advice for contraceptive management (Primary Dx); Maria Esther Coello, WHCNP Irregular menstrual cycle; [address] examination or test, positive result [place], [place] [address] [place], [place] [address] Allergies No Known Allergiesdocumented as of this [...] Comments Blood Pressure 136/87 06/11/2019 4:23 PM CODING COMPLIANCE MANAGER Pulse 97 06/11/2019 4:23 PM CODING COMPLIANCE MANAGER Temperature 37.4 C (99.4 F) 06/11/2019 4:23 PM CODING COMPLIANCE MANAGER Respiratory Rate 16 06/11/2019 4:23 PM CODING COMPLIANCE MANAGER Oxygen Saturation - - Inhaled Oxygen Concentration - - Weight 99.9 kg (220 lb 5 oz) 06/11/2019 4:23 PM CODING COMPLIANCE MANAGER Height 162.6 cm (5' 4") 06/11/2019 4:23 PM CODING COMPLIANCE MANAGER Body Mass Index 37.82 06/11/2019 4:23 PM CODING COMPLIANCE MANAGER documented in this encounter Progress Notes Heidy Car, WHCNP - 06/11/2019 4:00 PM CST Chief complaint: Chief Complaint 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 Patient lives with parents. 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 12/10/2019 Office Visit [facility] Heidy Car WHCNP [address] [place] [address] [phone] Name Type Priority Associated Diagnoses Order Schedule [...] Routine 06/11/2019 5:01 Results for this PM CODING COMPLIANCE MANAGER examination or test, procedure are in positive result the results section. CBC WITH DIFFERENTIAL Routine 06/11/2019 5:01 Results for this PM CODING COMPLIANCE MANAGER examination or test, procedure are in positive result the results section. TOTAL BETA HCG ASSAY Routine 06/11/2019 5:01 Results for this PM CODING COMPLIANCE MANAGER examination or test, procedure are in positive result the results section. POCT TEST Routine 06/11/2019 4:47 Irregular menstrual Results for this PM CODING COMPLIANCE MANAGER cycle procedure are in the results section. documented in this encounter Results CBC WITH DIFFERENTIAL (06/11/2019 5:01 PM CODING COMPLIANCE MANAGER) WBC 5.27 4.30 - 11.10 [facility] [...] SERVICES MONO x10^3 0.59 0.33 - 0.92 [facility] 10*3/uL SERVICES EOS x10^3 0.17 0.03 - 0.39 [facility] 10*3/uL SERVICES BASO x10^3 0.03 0.01 - 0.07 [facility] 10*3/uL SERVICES Specimen Blood - ARM, LEFT Performing Organization Address City/State/Zipcode Phone Number [facility] CLIA: [id number], [address] [place] [address] [facility] TOTAL BETA HCG ASSAY (06/11/2019 5:01 PM CODING COMPLIANCE MANAGER) BETA HCG 124.19 Non- female [facility] and male patients: <5 mIU/mL Specimen Blood - ARM, LEFT Narrative Performed At [facility] Gestational Age Range (mIU/mL) 1-10 Weeks 44-437018 11-15 Weeks 95576-331511 16-22 Weeks 7480-509561 23-40 Weeks 1531-271078 Biotin has been reported to cause a negative bias, interpret results relative to patient's use of biotin. Performing Organization Address City/State/Zipcode Phone Number [facility] CLIA: [id number], [address] [place] [address] [facility] POCT TEST (06/11/2019 4:47 PM CODING COMPLIANCE MANAGER) POCT PREG Positive On board controls acceptable [...] ID Effective Phone Address Type Group Dates [facility] xxxxxxxxx 2018-Partha MCCRACKEN Medicaid HEALTH CHOICE - HEALTH [employer] [id number] MANAGED MEDICAID [place], [place]ICA[place] [phone] documented as of this encounter Advance Directives Name Relationship Healthcare Agent Relationship Communication Arminda Paz Mother Primary healthcare agent [phone] ([place]) Minda Zaragoza Grandparent First alternate healthcare agent [phone] (Home )
--- OUTSIDE RECORDS SUMMARY | 2019-07-06 22:39 | XMS REPORT | Summary of Care ---
:1990 Author Organization [facility] Address [address] [place] [address] Care Team Providers Name Role Phone Guzman Tootie JONES Primary Care Provider Reason for Visit Reason Comments LAB Encounter Details Date Type Department Care Team Description 06/12/2019 Telephone [facility] Heidy Car, LAB [address] [place] [address] [address] [facility] [phone] [place] [address] Allergies No Known Allergiesdocumented as [...] Date Type Specialty Care Team Description 06/13/2019 Salt Operator [facility] 12/10/2019 Office Visit [facility] Heidy Car, CNP [address] [place] [address] [phone] Health Maintenance Due Date Last Done Comments [...] Subscriber ID Effective Phone Address Type Group [facility] [employer]ITY xxxxxxxxx 2018-Partha [address] Medicaid HEALTH CHOICE - HEALTH CHOICE nt [id number] MANAGED MEDICAID [place], [place]ICAID [phone] documented as of this encounter Advance Directives Name Relationship Healthcare Agent Relationship Communication Arminda Paz Mother Primary healthcare agent Minda Zaragoza Grandparent First alternate healthcare agent [phone] (Home )
--- OUTSIDE RECORDS SUMMARY | 2019-07-06 22:40 | XMS REPORT | Summary of Care ---
:1990 Author Organization [facility] Address [address] [place] [address] Care Team Providers Name Role Phone Tootie Hinds Primary Care Provider Reason for Visit Reason Comments LAB Encounter Details Date Type Department Care Team Description 06/27/2019 Telephone [facility] Heidy Car, LAB [address] [place] [address] [address] [facility] [phone] [place] [address] Allergies No Known Allergiesdocumented as of this encounter (statuses as of 06/27/2019) Medications Medication Sig Dispensed Refills Start Date End Date Status vit Take by mouth. 0 Active calc,iron,folic ( VITAMIN ORAL) documented as of this encounter (statuses as of 06/27/2019) Active Problems Problem Noted Date Irregular menstrual [...] as of this encounter (statuses as of 06/27/2019) Resolved Problems Problem Noted Date Resolved Date High risk , antepartum 12/22/2018 01/29/2019 Abnormal urinalysis 12/22/2018 01/29/2019 documented as of this encounter (statuses as of 06/27/2019) Social History Tobacco Use Types Packs/Day Years [...] [facility] Heidy Car, CNP [address] [place] [address] [phone] Name Type Priority Associated Diagnoses Order Schedule TOTAL BETA HCG ASSAY LAB Routine Missed 3 Occurrences starting 06/27/2019 until 09/27/2019 Health Maintenance Due Date Last Done Comments [...] Missed - Primary documented in this encounter Insurance Payer Benefit Plan / Subscriber ID Effective Phone Address Type Group Dates [employer] xxxxxxxxx 2018-[address]se [address] Medicaid HEALTH CHOICE - HEALTH CHOICE nt [id number] MANAGED MEDICAID [place], [place] MEDICAID [phone] documented as of this encounter Advance Directives Name Relationship Healthcare Agent Relationship Communication Arminda Paz Mother Primary healthcare agent Minda Zaragoza Grandparent First alternate healthcare agent [phone] (Home )
--- OUTSIDE RECORDS SUMMARY | 2019-07-06 22:40 | XMS REPORT | Summary of Care ---
:1990 Author Organization [facility] Address [address] [place] [address] Care Team Providers Name Role Phone Tootie Hinds Primary Care Provider Reason for Visit Reason Comments LAB Encounter Details Date Type Department Care Team Description 06/28/2019 Telephone [facility] Heidy Car, LAB [address] [place] [address] [address] [facility] [phone] [place] [address] Allergies No Known Allergiesdocumented as of this encounter (statuses as of 06/29/2019) Medications Medication Sig Dispensed Refills Start Date End Date Status vit Take by mouth. 0 Active calc,iron,folic ( VITAMIN ORAL) documented as of this encounter (statuses as of 06/29/2019) Active Problems Problem Noted Date Irregular menstrual [...] as of this encounter (statuses as of 06/29/2019) Resolved Problems Problem Noted Date Resolved Date High risk , antepartum 12/22/2018 01/29/2019 Abnormal urinalysis 12/22/2018 01/29/2019 documented as of this encounter (statuses as of 06/29/2019) Social History Tobacco Use Types Packs/Day Years [...] Treatment Date Type Specialty Care Team Description 07/02/2019 Office Visit [facility] Heidy Car WHCNP [address] [place] [address] [phone] 12/10/2019 Office Visit [facility] Heidy Car WHCNP [address] [place] [address] [phone] Health Maintenance Due Date Last Done Comments [...] Medicaid HEALTH CHOICE - HEALTH CHOICE nt [id number] MANAGED MEDICAID [place], [place]ID [phone] documented as of this encounter Advance Directives Name Relationship Healthcare Agent Relationship Communication Arminda Paz Mother Primary healthcare agent Minda Zaragoza Grandparent First alternate healthcare agent [phone] (Home )
--- OUTSIDE RECORDS SUMMARY | 2019-07-06 22:40 | XMS REPORT | Summary of Care ---
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 Visit [facility] Heidy Car, CNP [address] [place] [address] Missed [place] [facility] [address] [place] [address] Allergies No Known Allergiesdocumented as [...] [facility] Heidy Car, CNP [address] [place], [place] [address]35[address] Name Type Priority Associated Diagnoses Date/Time TOTAL BETA HCG ASSAY LAB Routine Missed 06/27/2019 10:11 AM BRICK STACKER Health Maintenance Due Date Last Done Comments DTaP,Tdap,and Td Vaccines (1 02/09/1999 - Tdap) INFLUENZA VACCINE (#1) 2018 PAP SMEAR 12/22/2021 12/22/2018, 06/03/2009 PNEUMOCOCCAL 0-64 YEARS Aged Out No longer eligible based COMBINED SERIES on patient's age to complete this topic VARICELLA VACCINES Discontinued documented as of this encounter Results Not on filedocumented in this encounter Visit Diagnoses Diagnosis Missed documented in this encounter Insurance Payer Benefit Plan / Subscriber ID Effective Phone Address Type Group Dates [employer] xxxxxxxxx 2018-[place] [address] Medicaid HEALTH CHOICE - HEALTH CHOICE nt [id number] MANAGED MEDICAID [place], [place] MEDICAID [phone] documented as of this encounter Advance Directives Name Relationship Healthcare Agent Relationship Communication Arminda Paz Mother Primary healthcare agent Minda Zaragoza Grandparent First alternate healthcare agent [phone] (Home )
--- OUTSIDE RECORDS SUMMARY | 2019-07-06 22:40 | XMS REPORT | Summary of Care ---
:1990 Author Organization [facility] Address [address] [place] [address] Care Team Providers Name Role Phone Guzman Tootie JONES Primary Care Provider Reason for Visit Reason Comments LAB Encounter Details Date Type Department Care Team Description 06/28/2019 Telephone [facility] Heidy Car, LAB [address] [place] [address] [address] [facility] [phone] [place] [address] Allergies No Known Allergiesdocumented as of this encounter (statuses as of 06/28/2019) Medications Medication Sig Dispensed Refills Start Date End Date Status vit Take by mouth. 0 Active calc,iron,folic ( VITAMIN ORAL) documented as of this encounter (statuses as of 06/28/2019) Active Problems Problem Noted Date Irregular menstrual [...] as of this encounter (statuses as of 06/28/2019) Resolved Problems Problem Noted Date Resolved Date High risk , antepartum 12/22/2018 01/29/2019 Abnormal urinalysis 12/22/2018 01/29/2019 documented as of this encounter (statuses as of 06/28/2019) Social History Tobacco Use Types Packs/Day Years [...] [facility] Heidy Car WHCNP [address] [place] [address] [phone] 12/10/2019 Office Visit [facility] Heidy Car WHCNP [address] [place] [address] [phone] Health Maintenance Due Date Last Done Comments [...] Medicaid HEALTH CHOICE - HEALTH CHOICE nt [id number] MANAGED MEDICAID [place], [place] [phone] documented as of this encounter Advance Directives Name Relationship Healthcare Agent Relationship Communication Arminda Paz Mother Primary healthcare agent Minda Zaragoza Grandparent First alternate healthcare agent [phone] (Home )
--- OUTSIDE RECORDS SUMMARY | 2019-07-06 22:40 | XMS REPORT | Summary of Care ---
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 [facility], [facility] 12/10/2019 Office Visit [facility]idy Car[facility] [address] [place] [address] [phone] Health Maintenance Due Date Last Done Comments DTaP,Tdap,and Td Vaccines (1 02/09/1999 - Tdap) INFLUENZA VACCINE (#1) 2018 PAP SMEAR 12/22/2021 12/22/2018, 06/03/2009 PNEUMOCOCCAL 0-64 YEARS Aged Out No longer eligible based COMBINED SERIES on patient's age to complete this topic VARICELLA VACCINES Discontinued documented as of this encounter Procedures Procedure Name Priority Date/Time Associated Diagnosis Comments TOTAL BETA HCG Routine 06/21/2019 11:04 AM History of recurrent Results for this ASSAY HEALTHCARE MANAGEMENT spontaneous procedure are in , not the results currently section. documented in this encounter Results TOTAL BETA HCG ASSAY (06/21/2019 11:04 AM HEALTHCARE MANAGEMENT) BETA HCG 42.52 Non- female [facility] and male patients: <5 mIU/mL Specimen Blood - ARM, LEFT Narrative Performed At [facility] Gestational Age Range (mIU/mL) 1-10 Weeks 44-504404 11-15 Weeks 113[address]-581229 16-22 Weeks 1280-599921 23-40 Weeks 1531-486133 Biotin has been reported to cause a negative bias, interpret results relative to patient's use of biotin. Performing Organization Address City/State/Zipcode Phone Number [facility] CLIA: [id number], [address] [place] [address] [phone] [facility] documented in this encounter Visit Diagnoses Diagnosis History of recurrent spontaneous , not currently - Primary Unspecified spontaneous without mention of complication documented in this encounter Insurance Payer Benefit Plan / Subscriber ID Effective Phone Address Type Group Dates [facility] xxxxxxxxx 2018-Partha [address] Medicaid HEALTH CHOICE - HEALTH CHOICE [id number] MANAGED MEDICAID [place], [place] MED[place]ID [phone] documented as of this encounter Advance Directives Name Relationship Healthcare Agent Relationship Communication Arminda Paz Mother Primary healthcare agent Minda Zaragoza Grandparent First alternate healthcare agent [phone] (Home )
--- OUTSIDE RECORDS SUMMARY | 2019-07-06 22:40 | XMS REPORT | Summary of Care ---
:1990 Author Organization [facility] Address [address] [place] [address] Care Team Providers Name Role Phone Tootie Hinds Primary Care Provider Reason for Visit Reason Comments LAB Encounter Details Date Type Department Care Team Description 06/28/2019 Telephone [facility] Heidy Car, LAB [address] [place] [address] [address] [facility] [phone] [place] [address] Allergies No Known Allergiesdocumented as [...] OB Alens Heidy Car WHCNP [address] [place] [address] [phone] 12/10/2019 Office Visit [facility] Heidy Car WHCNP [address] [place] [address] [phone] Health Maintenance Due Date Last Done Comments [...] Medicaid HEALTH CHOICE - HEALTH CHOICE nt [id number] MANAGED MEDICAID [place], [place] [phone] documented as of this encounter Advance Directives Name Relationship Healthcare Agent Relationship Communication Arminda Paz Mother Primary healthcare agent Minda Zaragoza Grandparent First alternate healthcare agent [phone] (Home )
--- OUTSIDE RECORDS SUMMARY | 2019-07-06 22:41 | XMS REPORT | Summary of Care ---
:1990 Author Organization [facility] Address [address] [place] [address] Care Team Providers Name Role Phone Tootie Hinds Primary Care Provider Reason for Visit Reason Comments LAB Encounter Details Date Type Department Care Team Description 06/28/2019 Telephone [facility] Heidy Car, LAB [address] [place] [address] [address] [facility] [phone] [place] [address] Allergies No Known Allergiesdocumented as of this encounter (statuses as of 07/02/2019) Medications Medication Sig Dispensed Refills Start Date End Date Status vit Take by mouth. 0 Active calc,iron,folic ( VITAMIN ORAL) documented as of this encounter (statuses as of 07/02/2019) Active Problems Problem Noted Date Irregular menstrual [...] as of this encounter (statuses as of 07/02/2019) Resolved Problems Problem Noted Date Resolved Date High risk , antepartum 12/22/2018 01/29/2019 Abnormal urinalysis 12/22/2018 01/29/2019 documented as of this encounter (statuses as of 07/02/2019) Social History Tobacco Use Types Packs/Day Years [...] OB Alens Heidy Car WHCNP [address] [address] [phone] 12/10/2019 Office Visit [facility] Heidy Car WHCNP [address] [place] [address] [phone] Health Maintenance Due Date Last Done Comments [...] Medicaid HEALTH CHOICE - HEALTH CHOICE nt [id number] MANAGED MEDICAID [place], [place] [phone] documented as of this encounter Advance Directives Name Relationship Healthcare Agent Relationship Communication Arminda Paz Mother Primary healthcare agent Minda Zaragoza Grandparent First alternate healthcare agent [phone] (Home )
[2019-07-06] MEDS ORDERED: MORPHINE 4 MG/ML SYR ONE (23:18)
[2019-07-06] MEDS ORDERED: ONDANSETRON 4 MG/2 ML VIAL ONE (23:18)
[2019-07-06 23:19] LABS: Absolute Lymphocytes (CBC) 1.1 K/uL (0.7-4.9); Basophils % 0.5 % (0-1.3); Hematocrit 37.7 % (36.0-45.0); Lymphocytes % 20.9 % (15.3-44.8); MPV 9.6 fL (7.6-11.3); RBC Red Blood Cell Count 5.06 M/uL (3.86-4.86)
[2019-07-06 23:21] LABS: Protime INR 1.04
[2019-07-06 23:43] LABS: Albumin 3.8 g/dL (3.4-5.0); Alkaline Phosphatase 209 U/L (45-117); BUN Blood Urea Nitrogen 12 mg/dL (7-18); Bicarbonate 30 mmol/L (21-32); Bilirubin Total 2.7 mg/dL (0.2-1.0); Glucose Level 116 mg/dL (74-106); Magnesium 2.2 mg/dL (1.8-2.4); NT PRO-BNP 41 pg/mL (<125); Potassium 3.5 mmol/L (3.5-5.1); Protein, Total 8.1 g/dL (6.4-8.2); Sodium Level 139 mmol/L (136-145); Troponin (Emerg Dept Use Only) < 0.02 ng/mL (0.0-0.045)
[2019-07-06 23:46] LABS: ALT/SGPT 972 U/L (12-78); AST/SGOT 814 U/L (15-37)
[2019-07-07] MEDS ORDERED: NA CHLORIDE 0.9% 1,000 ML IV SCH
--- NOTE | 2019-07-07 00:09 | ER ---
Nurse's Notes [facility] Name: Melanie Paz Age: 29 yrs Sex: Female : 1990 Arrival Date: 07/06/2019 Time: 22:37 Bed 26 Private MD: Diagnosis: Abnormal results of liver function studies;Cholelithiasis Presentation: 07/05 22:40 Chief complaint: Patient states: Chest pain to middle of chest that began last night, lp1 states worse tonight while on shift at work; Kept her up through the night; chest pain now radiating down left arm, left jaw; Denies any other symptoms. Coronavirus screen: The patient has NOT traveled to a country currently being monitored by the CDC within the last 14 days. The patient has NOT had contact with any known and/or suspected case of coronavirus. Ebola Screen: No symptoms or risks identified at this time. Initial Sepsis Screen: Does the patient meet any 2 criteria? No. Patient's initial sepsis screen is negative. Does the patient have a suspected source of infection? No. Patient's initial sepsis screen is negative. Risk Assessment: Do you want to hurt yourself or someone else? Patient reports no desire to harm self or others. 22:40 Method Of Arrival: Carried lp1 22:40 Acuity: NEIL 3 lp1 23:00 Onset of symptoms was July 06, 2019. 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 - Social history:: Smoking status: Patient denies any tobacco usage or history of. Screenin:19 Abuse screen: Denies threats or abuse. Denies injuries from another. Nutritional rr5 screening: No deficits noted. Tuberculosis screening: No symptoms or risk factors identified. Fall Risk IV access (20 points). Total Yost Fall Scale indicates No Risk (0-24 pts). Assessment: 22:55 General: Appears in no apparent distress. uncomfortable, ill, Behavior is calm, rr5 cooperative, appropriate for age. Pain: Complains of pain in chest Pain radiates to jaw and left arm Pain currently is 10 out of 10 on a pain scale. Quality of pain is described as aching, Pain began gradually, Is intermittent. Neuro: Level of Consciousness is awake, alert, obeys commands, Oriented to person, place, time, situation, Appropriate for age. Cardiovascular: Reports chest pain, Capillary refill < 3 seconds Patient's skin is warm and dry. Respiratory: Airway is patent Respiratory effort is even, unlabored, Respiratory pattern is regular, symmetrical. GI: Abdomen is round Abdomen is tender to palpation in epigastric area and right upper quadrant Guarding noted in epigastric area and right upper quadrant Reports upper abdominal pain, nausea, vomiting. : No signs and/or symptoms were reported regarding the genitourinary system. EENT: No signs and/or symptoms were reported regarding the EENT system. Derm: Skin is intact, is healthy with good turgor, Skin temperature is warm. Musculoskeletal: Circulation, motion, and sensation intact. Capillary refill < 3 seconds. 23:50 Reassessment: Patient appears in no apparent distress at this time. awaiting for rr5 results. Patient states feeling better. Patient states symptoms have improved. 23:50 Pain: Pain currently is 6 out of 10 on a pain scale. rr5 07/06 00:15 Reassessment: Patient appears in no apparent distress at this time. Patient and/or rr5 family updated on plan of care and expected duration. Pain level reassessed. Patient is alert, oriented x 3, equal unlabored respirations, skin warm/dry/pink. ED explained the result. patient for transfer to other facility. 00:30 Reassessment: Patient appears in no apparent distress at this time. complaining the rr5 pain came back pain score 9/10. ED provider aware with order made and carried out. 02:00 Reassessment: Patient appears in no apparent distress at this time. spoke to christi [address] staff nurse, accepted the transfer. 02:20 Reassessment: complaint that the abdominal pain came back pain score 9/10. with order rr5 made and carried out. 02:54 Reassessment: Patient appears in no apparent distress at this time. Patient is alert, rr5 oriented x 3, equal unlabored respirations, skin warm/dry/pink. report given to [facility], awake conscious and coherent not in distress, IV cannula intact at right AC. VS stable. Vital Signs: 07/05 22:40 BP 162 / 86; Pulse 96; Resp 18; Temp 99.3(O); Pulse Ox 100% on R/A; Weight 99.34 kg lp1 (R); Height 5 ft. 4 in. (162.56 cm); Pain 10/10; 23:20 BP 136 / 54; Pulse 89; Resp 19; Pulse Ox 99% ; Pain 10/10; rr5 23:55 BP 121 / 79; Pulse 80; Resp 16; Pulse Ox 98% ; Pain 6/10; rr5 07/06 00:50 BP 129 / 73; Pulse 88; Resp 18; Temp 98.7; Pulse Ox 99% ; Pain 9/10; rr5 02:00 BP 117 / 78; Pulse 82; Resp 20; Temp 98.5; Pulse Ox 100% on R/A; Pain 6/10; rr5 02:30 BP 130 / 75; Pulse 85; Resp 19; Pulse Ox 98% ; Pain 9/10; rr5 02:51 BP 127 / 81; Pulse 84; Resp 18; Pulse Ox 100% on R/A; Pain 6/10; rr5 07/05 22:40 Body Mass Index 37.59 (99.34 kg, 162.56 cm) lp1 ED Course: 07/05 22:37 Patient arrived in ED. es 22:38 Josue Burnett, VIDHI is Primary Nurse. rr5 22:44 Triage completed. lp1 23:00 Janel Guidry FNP-C is [facility]. kb 23:00 Christiano Goodman MD is Attending Physician. kb 23:01 Arm band placed on. lp1 23:02 Patient has correct armband on for positive identification. Placed in gown. Pulse ox lp1 on. NIBP on. 23:02 Patient maintains SpO2 saturation greater than 95% on room air. lp1 23:10 Inserted saline lock: 20 gauge in right antecubital area, using aseptic technique. rr5 Blood collected. 23:40 US Abdomen Limited In Process Unspecified. EDMS 23:47 XRAY Chest (1 view) In Process Unspecified. EDMS 07/06 02:55 No provider procedures requiring assistance completed. Patient transferred, IV remains rr5 in place. intact, No redness/swelling at site. Administered Medications: 07/05 23:15 Drug: Zofran (Ondansetron) 4 mg Route: IVP; Site: right antecubital; rr5 07/06 00:15 Follow up: Response: No adverse reaction rr5 07/05 23:17 Drug: morphine 4 mg {Note: rass 0.} Route: IVP; Site: right antecubital; rr5 07/06 00:10 Follow up: Response: No adverse reaction; Pain is decreased; RASS: Alert and Calm (0) rr5 00:30 Drug: NS 0.9% 1000 ml Route: IV; Rate: 1 bolus; Site: right antecubital; rr5 01:30 Follow up: Response: No adverse reaction; IV Status: Completed infusion; IV Intake: rr5 1000ml 00:34 Drug: fentaNYL (PF) 25 mcg {Note: rass 0.} Route: IVP; Site: right antecubital; rr5 01:20 Follow up: Response: No adverse reaction; Pain is decreased; RASS: Alert and Calm (0) rr5 02:19 Drug: fentaNYL (PF) 25 mcg {Note: rass 0.} Route: IVP; Site: right antecubital; rr5 02:56 Follow up: Response: No adverse reaction; Pain is decreased; RASS: Alert and Calm (0) rr5 Intake: 01:30 IV: 1000ml; Total: 1000ml. rr5 Outcome: 00:08 ER care complete, transfer ordered by MD. garcia 02:55 Transferred by ground EMS to [facility], Transfer form completed. rr5 02:55 Condition: stable 02:55 Instructed on the need for transfer. 02:59 Patient left the ED. rr5 Signatures: Dispatcher [employer] Janel Kelly, [employer] ENERGY RATER-Angelia Aguiar Laura, RN RN lp1 Josue Burnett RN RN rr5
--- NOTE | 2019-07-07 00:10 | EDPHYS ---
Physician Documentation [facility] Name: Melanie Paz Age: 29 yrs Sex: Female : 1990 Arrival Date: 07/06/2019 Time: 22:37 Bed 26 Private MD: ED Physician Christiano Goodman HPI: 07/06 00:04 This 29 yrs old Black Female presents to ER via Carried with complaints of Chest Pain. kb 00:05 The patient or guardian reports chest pain that is located primarily in the epigastric kb area. The pain radiates to Associated signs and symptoms: Pertinent positives: nausea, Pertinent negatives: abdominal pain, cough, diaphoresis, dizziness, headache, lower extremity pain, lower extremity swelling, lightheadedness, near syncope, palpitations, recent travel, shortness of breath, syncope, vomiting. The chest pain is described as sharp. Duration: The patient or guardian reports a single episode, that is still ongoing. Modifying factors: The symptoms are alleviated by nothing. the symptoms are aggravated by eating. Severity of pain: At its worst the pain was moderate in the emergency department the pain is unchanged. The patient has not experienced similar symptoms in the past. The patient has not recently seen a physician. Pt reports epigastric pain that started last night. Reports pain got worse after eating pizza earlier tonight. . DIRECTOR ORACLE DATABASE: 07/05 23:02 LMP N/A - Irregular menses, Patient states recent miscarriage lp1 Historical: - Allergies: 23:01 NKDA; lp1 - Home Meds: 23:01 None [Active]; lp1 - PMHx: 23:01 Diabetes - NIDDM; PCOS; lp1 - PSHx: 23:01 None; lp1 - Immunization history:: Adult Immunizations up to date. - Social history:: Smoking status: Patient denies any tobacco usage or history of. ROS: 07/06 00:03 Constitutional: Negative for fever, chills, and weight loss, Respiratory: Negative for kb shortness of breath, cough, wheezing, and pleuritic chest pain, Abdomen/GI: Negative for abdominal pain, nausea, vomiting, diarrhea, and constipation, Back: Negative for injury and pain, MS/Extremity: Negative for injury and deformity, Skin: Negative for injury, rash, and discoloration, Neuro: Negative for headache, weakness, numbness, tingling, and seizure. Cardiovascular: Positive for chest pain, Negative for edema, orthopnea, palpitations, paroxysmal nocturnal dyspnea. Exam: 00:03 Constitutional: This is a well developed, well nourished patient who is awake, alert, kb and in no acute distress. Head/Face: Normocephalic, atraumatic. Chest/axilla: Normal chest wall appearance and motion. Nontender with no deformity. No lesions are appreciated. Cardiovascular: Regular rate and rhythm with a normal S1 and S2. No gallops, murmurs, or rubs. Normal PMI, no JVD. No pulse deficits. Respiratory: Lungs have equal breath sounds bilaterally, clear to auscultation and percussion. No rales, rhonchi or wheezes noted. No increased work of breathing, no retractions or nasal flaring. Back: No spinal tenderness. No costovertebral tenderness. Full range of motion. Skin: Warm, dry with normal turgor. Normal color with no rashes, no lesions, and no evidence of cellulitis. MS/ Extremity: Pulses equal, no cyanosis. Neurovascular intact. Full, normal range of motion. Neuro: Awake and alert, GCS 15, oriented to person, place, time, and situation. Cranial nerves II-XII grossly intact. Motor strength 5/5 in all extremities. Sensory grossly intact. Cerebellar exam normal. Normal gait. 00:03 Abdomen/GI: Inspection: obese Bowel sounds: normal, in all quadrants, Palpation: soft, in all quadrants, moderate abdominal tenderness, in the epigastric area. Vital Signs: 07/05 22:40 BP 162 / 86; Pulse 96; Resp 18; Temp 99.3(O); Pulse Ox 100% on R/A; Weight 99.34 kg lp1 (R); Height 5 ft. 4 in. (162.56 cm); Pain 10/10; 23:20 BP 136 / 54; Pulse 89; Resp 19; Pulse Ox 99% ; Pain 10/10; rr5 23:55 BP 121 / 79; Pulse 80; Resp 16; Pulse Ox 98% ; Pain 6/10; rr5 07/06 00:50 BP 129 / 73; Pulse 88; Resp 18; Temp 98.7; Pulse Ox 99% ; Pain 9/10; rr5 02:00 BP 117 / 78; Pulse 82; Resp 20; Temp 98.5; Pulse Ox 100% on R/A; Pain 6/10; rr5 02:30 BP 130 / 75; Pulse 85; Resp 19; Pulse Ox 98% ; Pain 9/10; rr5 02:51 BP 127 / 81; Pulse 84; Resp 18; Pulse Ox 100% on R/A; Pain 6/10; rr5 07/05 22:40 Body Mass Index 37.59 (99.34 kg, 162.56 cm) lp1 MDM: 07/05 23:00 Patient medically screened. kb 23:54 Data reviewed: vital signs, nurses notes. Data interpreted: Pulse oximetry: on room air kb is 99 %. Interpretation: normal. Counseling: I had a detailed discussion with the patient and/or guardian regarding: the historical points, exam findings, and any diagnostic results supporting the discharge/admit diagnosis, lab results, radiology results, the need to transfer to another facility. Physician consultation: Giovanni Mcclain MD was contacted at 00:02, regarding consult, patient's condition, after a discussion of the case, a recommendation for transfer for higher level of care is made. 07/06 01:11 ED course: Hospitalist (Dr Rosales) accepts pt for transfer, Dr Auguste () accepts kb consult at [facility]. 07/05 23:04 Order name: Basic Metabolic Panel; Complete Time: 23:48 kb 07/05 23:04 Order name: CBC with Diff; Complete Time: 23:27 kb 07/05 23:04 Order name: LFT's; Complete Time: 23:48 kb 07/05 23:04 Order name: Magnesium; Complete Time: 23:48 kb 07/05 23:04 Order name: NT PRO-BNP; Complete Time: 23:48 kb 07/05 23:04 Order name: PT-INR; Complete Time: 23:27 kb 07/05 23:00 Order name: US Abdomen Limited kb 07/05 23:04 Order name: Troponin (emerg Dept Use Only); Complete Time: 23:48 kb 07/05 23:04 Order name: XRAY Chest (1 view) kb 07/05 23:51 Order name: Lipase; Complete Time: 00:54 kb 07/05 23:04 Order name: EKG; Complete Time: 23:05 kb 07/05 23:04 Order name: Cardiac monitoring; Complete Time: 23:17 kb 07/05 23:04 Order name: EKG - Nurse/Tech; Complete Time: 23:11 kb 07/05 23:04 Order name: IV Saline Lock; Complete Time: 23:17 kb 07/05 23:04 Order name: Labs collected and sent; Complete Time: 23:17 kb 07/05 23:04 Order name: O2 Per Protocol; Complete Time: 23:11 kb 07/05 23:04 Order name: O2 Sat Monitoring; Complete Time: 23:11 kb Administered Medications: 07/05 23:15 Drug: Zofran (Ondansetron) 4 mg Route: IVP; Site: right antecubital; rr5 07/06 00:15 Follow up: Response: No adverse reaction rr5 07/05 23:17 Drug: morphine 4 mg {Note: rass 0.} Route: IVP; Site: right antecubital; rr5 07/06 00:10 Follow up: Response: No adverse reaction; Pain is decreased; RASS: Alert and Calm (0) rr5 00:30 Drug: NS 0.9% 1000 ml Route: IV; Rate: 1 bolus; Site: right antecubital; rr5 01:30 Follow up: Response: No adverse reaction; IV Status: Completed infusion; IV Intake: rr5 1000ml 00:34 Drug: fentaNYL (PF) 25 mcg {Note: rass 0.} Route: IVP; Site: right antecubital; rr5 01:20 Follow up: Response: No adverse reaction; Pain is decreased; RASS: Alert and Calm (0) rr5 02:19 Drug: fentaNYL (PF) 25 mcg {Note: rass 0.} Route: IVP; Site: right antecubital; rr5 02:56 Follow up: Response: No adverse reaction; Pain is decreased; RASS: Alert and Calm (0) rr5 Disposition: 03:28 Co-signature as Attending Physician, Christiano Goodman MD I agree with the assessment and tw4 plan of care. Disposition: 07/07/19 00:08 Transfer ordered to [facility]. Diagnosis are Abnormal results of liver function studies, Cholelithiasis. - Reason for transfer: Higher level of care. - Accepting physician is Bobby. - Condition is Stable. - Problem is new. - Symptoms are unchanged. Signatures: Dispatcher [employer] ED Chao Janel, CHARGE OUT CLERK-C CHARGE OUT CLERK-Ckb Marie Milligan, RN RN lp1 Christiano Goodman MD MD tw4 Josue Burnett, RN RN rr5 Corrections: (The following items were deleted from the chart) 01:12 00:08 07/07/2019 00:08 Transfer ordered to [facility]. kb Diagnosis is Abnormal results of liver function studies; Cholelithiasis. Reason for transfer: Higher level of care. Accepting physician is [facility]. Condition is Stable. Problem is new. Symptoms are unchanged. kb 02:59 01:12 07/07/2019 00:08 Transfer ordered to [facility]. rr5 Diagnosis is Abnormal results of liver function studies; Cholelithiasis. Reason for transfer: Higher level of care. Accepting physician is [facility]. Condition is Stable. Problem is new. Symptoms are unchanged. kb
[2019-07-07] MEDS ORDERED: FENTANYL CITR 100 MCG/2 ML ONE (00:31)
[2019-07-07 03:34] VITALS: TEMP 98.5
[2019-07-07 03:38] VITALS: BP 127/81; O2SAT 100
--- NOTE | 2019-07-07 08:46 | RAD REPORT ---
EXAM DESCRIPTION: US - Abdomen Exam Limited - 07/06/2019 11:40 pm CLINICAL HISTORY: ABD PAIN Preliminary findings provided at the time of the study. COMPARISON: Abdomen Pelvis W Contrast dated 12/28/2015 FINDINGS: Gallbladder size is normal. Echogenic material fills the majority of the gallbladder lumen . This is all believed to be sludge. There are several echogenic foci present with shadowing. No wall thickening or gallbladder mass suspected. No pericholecystic fluid seen. Common bile duct is normal with no common duct stone identified. IMPRESSION: Normal-sized gallbladder containing several small gallstones. Large amount of sludge mary ls the majority of the gallbladder lumen. No gallbladder wall thickening or gallbladder wall mass identified. No biliary tree abnormality.
--- NOTE | 2019-07-07 09:52 | RAD REPORT ---
EXAM DESCRIPTION: RAD - Chest Single View - 07/06/2019 11:47 pm CLINICAL HISTORY: CHEST PAIN COMPARISON: August 2019 TECHNIQUE: AP portable chest image was obtained 07/06/2019 11:47 pm . FINDINGS: Lungs are clear. Heart and vasculature are normal. No measurable pleural effusion and no p neumothorax. No acute bony abnormality seen. No acute aortic findings suspected. IMPRESSION: No acute cardiopulmonary process. No significant interval change.
--- NOTE | 2019-07-08 09:15 | EKG ---
Test Date: 2019-07-06 Test Time: 22:55:52 Waiter/Waitress Captain: MIGUEL ANGEL MEASUREMENT RESULTS: Intervals: Rate: 98 FL: 128 QRSD: 86 QT: 348 QTc: 444 Helix: P: 72 FL: 128 QRS: 69 T: 14 INTERPRETIVE STATEMENTS: Normal sinus rhythm Minimal voltage criteria for LVH, may be normal variant Nonspecific T wave abnormality Abnormal ECG Compared to ECG 12/07/2016 08:34:40 T-wave abnormality now present Electronically Signed On 07-08-19 09:13:33 CDT by Kar Duke
== END 2019-07-07 02:59 | disposition short-term general hospital (02) ==
LOC: ER 22:34
DX: K80.20 Calculus of gallbladder without cholecystitis without obstruction (principal); R94.5 Abnormal results of liver function studies
CPT/HCPCS: 96361; 93005; 85025; 80048; 36415; 83735; 85610; 80076; 84484; 83690; 83880; 71045; 76705; 96375; 96374; 99285; J3010; J7030; J2405

== ENCOUNTER 2020-05-29 15:31 | Emergency (ER) | payer OTHER ==
--- OUTSIDE RECORDS SUMMARY | 2020-05-29 15:34 | XMS REPORT | Clinical Summary ---
:1990 Author Organization [facility] Address [address] [place] [address] Care Team Providers Name Role Phone Unavailable Primary Care Provider Unavailable Allergies No Known Allergies Medications Medication Sig Dispensed Refills Start Date End Date Status multivitamin capsule Take 1 capsule 0 Active by mouth daily. oxyCODONE-acetaminoph Take 1 tablet by 18 tablet 0 07/10/2019 Active en (PERCOCET) 5-325 mouth every 4 mg per tablet (four) hours as needed. Max Daily Amount: 6 tablets ketorolac (TORADOL) Take 1 tablet 15 tablet 0 07/10/201907/14 10 mg tablet (10 mg total) by mouth every 6 (six) hours as needed for Pain for up to 5 days. Active Problems Problem Noted Date Cholelithiases 07/07/2019 RUQ pain 07/07/2019 Encounters Date Type Specialty Care Team Description 07/09/2019 Anesthesia Event Jordan Patel MD Murugan, Shobana, MD 07/09/2019 Surgery Shimon Logan, Oumou RICHARDSON MD TECTOMY 07/08/2019 Anesthesia Event Gastroenterology Aubrie Morgan MD Vences, Wendy Diaz, KELLIE 07/08/2019 Surgery Gastroenterology Lukas Jiang ERCP MD Aldo 07/08/2019 Travel 07/07/2019 [facility] Internal [facility], Calculus of gallbladder with cholecystitis with biliary obstruction, unspecified cholecystitis acuity (Primary Dx); - Encounter Medicine MD Leigh Ann RUQ pain; 07/10/2019 Olivier Cantrell, Calculus of bi le duct without cholecystitis with obstruction; Acute hepatitis; Azeem, Metabolic syndr ome; Adilene Bray, Morbid obesit y (HCC); Type 2 diabetes mellitus without complic ation, without long-term current use of insulin (HCC) Jessica Mueller MD after 05/29/2019 Family History Medical History Relation Name Comments Unremarkable Father Unremarkable Mother Relation Name Status Comments Father Alive Mother Alive Social History Tobacco Use Types Packs/Day Years Used Date Former Smoker Quit: 02/07/20 19 Smokeless Tobacco: Never Used Tobacco Cessation: Counseling Given: No Comments: smoke around smokers ,6 mos ag o Alcohol Use Drinks/Week oz/Week Comments Yes 1 Cans of beer 1.0 twice a month Sex Assigned at Date Recorded Not on file Last Filed Vital Signs Vital Sign Reading Time Taken Comments Blood Pressure 158/87 07/10/2019 8:00 AM CDT Pulse 89 07/10/2019 8:00 AM CDT Temperature 37 C (98.6 F) 07/10/2019 8:00 AM CDT Respiratory Rate 18 07/10/2019 8:00 AM CDT Oxygen Saturation 98% 07/10/2019 8:00 AM CDT Inhaled Oxygen Concentration 21% 07/07/2019 10:44 PM CDT Weight - - Height 162.6 cm (5' 4") 07/08/2019 3:28 PM CDT Body Mass Index - - Plan of Treatment Health Maintenance Due Date Last Done Comments PNEUMOCOCCAL VACCINE 0-64 YRS (1 of 1 - PPSV23) 02/09/1994 DIABETIC EYE EXAM 02/09/1998 DIABETIC FOOT EXAM 02/09/1998 URINE MICROALBUMIN 02/09/1998 LIPID PANEL 2008 CERVICAL CANCER SCREENING PAP ONLY (Age 21-65) 02/09/2009 INFLUENZA VACCINE (#1) 2019 HEMOGLOBIN A1C 01/08/2020 07/08/2019 Procedures Procedure Name Priority Date/Time Associated Comments Diagnosis REPORT OF PROCEDURE - 07/11/2019 10:02 ENDOSCOPY SCAN AM CDT CBC W/PLT COUNT & Routine 07/10/2019 3:29 Result s for this AUTO DIFFERENTIAL AM CDT procedure are in the results section. CBC W/PLT COUNT & Routine 07/10/2019 3:29 Result s for this AUTO DIFFERENTIAL AM CDT procedure are in the results section. HEPATIC FUNCTION Routine 07/10/2019 3:29 Results for this PANEL AM CDT procedure are i n the results section. BASIC METABOLIC PANEL Routine 07/10/2019 3:29 Re sults for this (7) AM CDT procedure are i n the results section. POCT-GLUCOSE METER Routine 07/09/2019 9:17 Resul ts for this PM CDT procedure are i n the results section. POCT-GLUCOSE METER Routine 07/09/2019 6:11 Resul ts for this PM CDT procedure are i n the results section. TISSUE EXAM AP Routine 07/09/2019 5:29 Results for this PM CDT procedure are i n the results section. LAPAROSCOPY,CHOLECYST 07/09/2019 4:11 Biliary calculu s of ECTOMY PM CDT other site with obstruction Special Needs REQ: TF POCT-GLUCOSE METER Routine 07/09/2019 12:09 Resul ts for PM CDT this procedure are in the results section. POCT-GLUCOSE METER Routine 07/09/2019 10:01 Resul ts for AM CDT this procedure are in the results section. CBC W/PLT COUNT & Routine 07/09/2019 4:26 Result s for AUTO DIFFERENTIAL AM CDT this proce dure are in the results section. LIPASE JUMANA Add-on 07/09/2019 4:26 Results for AM CDT this procedure are in the results section. PROTHROMBIN TIME/INR Routine 07/09/2019 4:26 Res ults for AM CDT this procedure are in the results section. CBC W/PLT COUNT & Routine 07/09/2019 4:26 Result s for AUTO DIFFERENTIAL AM CDT this proce dure are in the results section. HEPATIC FUNCTION Routine 07/09/2019 4:26 Results for PANEL AM CDT this procedure are in the results section. BASIC METABOLIC PANEL Routine 07/09/2019 4:26 Re sults for (7) AM CDT this procedure are in the results section. POCT-GLUCOSE METER Routine 07/08/2019 10:41 Resul ts for PM CDT this procedure are in the results section. HEMOGLOBIN A1C Routine 07/08/2019 6:47 Results f or PM CDT this procedure are in the results section. POCT-GLUCOSE METER Routine 07/08/2019 6:17 Resul ts for PM CDT this procedure are in the results section. TRANSFUSION SERVICE 07/08/2019 6:00 REPORT - SCAN PM CDT POCT-GLUCOSE METER Routine 07/08/2019 12:09 Resul ts for PM CDT this procedure are in the results section. FL FLUORO Routine 07/08/2019 10:16 Results for NON-SPECIFIC UP TO 1 AM CDT this pr ocedure HOUR are in the results section. REPORT OF PROCEDURE - 07/08/2019 10:12 ENDOSCOPY URL AM CDT ERCP,PAPILLOTOMY 07/08/2019 8:45 Calculus of AM CDT gallbladder with cholecystitis with biliary obstruction, unspecified cholecystitis acuity ERCP,BALLOON 07/08/2019 8:45 Calculus of DILATATION AM CDT gallbladder with cholecystitis with biliary obstruction, unspecified cholecystitis acuity ERCP,BALLOON SWEEPING 07/08/2019 8:45 Calculus of AM CDT gallbladder with cholecystitis with biliary obstruction, unspecified cholecystitis acuity PROCEDURE W/ C-ARM 07/08/2019 8:45 Calculus of AM CDT gallbladder with cholecystitis with biliary obstruction, unspecified cholecystitis acuity ERCP 07/08/2019 8:45 Calculus of AM CDT gallbladder with cholecystitis with biliary obstruction, unspecified cholecystitis acuity POCT-GLUCOSE METER Routine 07/08/2019 6:37 Resul ts for AM CDT this procedure are in the results section. US ABDOMEN LIMITED Routine 07/08/2019 5:00 Resul ts for AM CDT this procedure are in the results section. CBC W/PLT COUNT & Routine 07/08/2019 4:33 Result s for AUTO DIFFERENTIAL AM CDT this proce dure are in the results section. LIPASE Add-On 07/08/2019 4:33 Results for AM CDT this procedure are in the results section. PROTHROMBIN TIME/INR Routine 07/08/2019 4:33 Res ults for AM CDT this procedure are in the results section. HEPATIC FUNCTION Routine 07/08/2019 4:33 Results for PANEL AM CDT this procedure are in the results section. BASIC METABOLIC PANEL Routine 07/08/2019 4:33 Re sults for (7) AM CDT this procedure are in the results section. CBC W/PLT COUNT & Routine 07/08/2019 4:33 Result s for AUTO DIFFERENTIAL AM CDT this proce dure are in the results section. POCT-GLUCOSE METER Routine 07/07/2019 9:31 Resul ts for PM CDT this procedure are in the results section. SCREEN, STAT 07/07/2019 7:32 Result s for URINE PM CDT this procedure are in the results section. POCT-GLUCOSE METER Routine 07/07/2019 5:58 Resul ts for PM CDT this procedure are in the results section. CAMI TITER AND PATTERN Routine 07/07/2019 4:49 Re sults for PM CDT this procedure are in the results section. MITOCHONDRIAL AB Routine 07/07/2019 4:49 Results for TITER PM CDT this procedure are in the results section. MITOCHONDRIAL AB Routine 07/07/2019 4:49 Results for SCREEN PM CDT this procedure are in the results section. CERULOPLASMIN Routine 07/07/2019 4:49 Results fo r PM CDT this procedure are in the results section. FERRITIN Routine 07/07/2019 4:49 Results for PM CDT this procedure are in the results section. IRON, TIBC, % SAT. Routine 07/07/2019 4:49 Resul ts for (WITHOUT FERRITIN) PM CDT this proc edure are in the results section. IMMUNOGLOBULIN G Routine 07/07/2019 4:49 Results for (IGG) PM CDT this procedure are in the results section. ACTIN (SMOOTH MUSCLE) Routine 07/07/2019 4:49 Re sults for ANTIBODY, IGG PM CDT this procedure are in the results section. ANTI-MITOCHONDRIAL Routine 07/07/2019 4:49 AB, REFLEX TO TITER PM CDT ANTI-NUCLEAR ANTIBODY Routine 07/07/2019 4:49 Re sults for (CAMI) PM CDT this procedure are in the results section. HEPATITIS B CORE Routine 07/07/2019 4:49 Results for ANTIBODY, TOTAL PM CDT this procedu re are in the results section. HEPATITIS B SURFACE Routine 07/07/2019 4:49 Resu lts for ANTIBODY PM CDT this procedure are in the results section. HEPATITIS A ANTIBODY, Routine 07/07/2019 4:49 Re sults for IGG PM CDT this procedure are in the results section. HEPATITIS PANEL, Routine 07/07/2019 4:49 Results for ACUTE PM CDT this procedure are in the results section. ABORH, MANUAL STAT 07/07/2019 4:48 Results fo r PM CDT this procedure are in the results section. [id number]\\, Routine 07/07/2019 4:48 Re sults for SERUM PM CDT this procedure are in the results section. PT/APTT Routine 07/07/2019 4:48 Results for PM CDT this procedure are in the results section. NM HEPATOBILIARY Routine 07/07/2019 2:47 Results for (HIDA) SCAN PM CDT this procedure are in the results section. POCT-GLUCOSE METER Routine 07/07/2019 12:05 Resul ts for PM CDT this procedure are in the results section. CBC W/PLT COUNT & Routine 07/07/2019 11:32 Result s for AUTO DIFFERENTIAL AM CDT this proce dure are in the results section. TYPE AND SCREEN, Routine 07/07/2019 11:32 Results for AUTOMATED AM CDT this procedure are in the results section. LIPASE STAT Add-on 07/07/2019 11:32 Results for AM CDT this procedure are in the results section. AMYLASE STAT Add-on 07/07/2019 11:32 Results for AM CDT this procedure are in the results section. HEPATIC FUNCTION Routine 07/07/2019 11:32 Results for PANEL AM CDT this procedure are in the results section. CBC W/PLT COUNT & Routine 07/07/2019 11:32 Result s for AUTO DIFFERENTIAL AM CDT this proce dure are in the results section. COMPREHENSIVE Routine 07/07/2019 11:32 Results fo r METABOLIC PANEL AM CDT this procedu re are in the results section. BLOOD CULTURE Routine 07/07/2019 6:34 Results fo r AM CDT this procedure are in the results section. BLOOD CULTURE Routine 07/07/2019 6:33 Results fo r AM CDT this procedure are in the results section. POCT-GLUCOSE METER Routine 07/07/2019 6:32 Resul ts for AM CDT this procedure are in the results section. after 05/29/2019 Results EKG-SCANNED (07/11/2019 10:02 AM CDT) Narrative Performed At This result has an attachment that is no t available. CBC with platelet count + automated diff (07/10/2019 3:29 AM CDT)Only the most recent of4 resultswithin the time period is included. Pathologist Sig nature WBC 10.1 3.5 - 10.5 [facility] K/L [facility] RBC 4.43 3.93 - 5.22 [facility] M/L [facility] Hemoglobin 10.8 (L) 11.2 - 15.7 [facility] GM/DL [facility] Hematocrit 34.6 34.1 - 44.9 % [facility] MCV 78.1 (L) 79.4 - 94.8 fL [facility] MCH 24.4 (L) 25.6 - 32.2 pg [facility] MCHC 31.2 (L) 32.2 - 35.5 [facility] GM/DL [facility] RDW 16.6 (H) 11.7 - 14.4 % [facility] Platelets 286 150 - 450 K/CU [facility] MM [facility] MPV 11.6 9.4 - 12.3 fL [facility] nRBC 0 0 - 0 /100 WBC [facility] % Neutros 86 % [facility] % Lymphs 9 % [facility] % Monos 5 % [facility] % Eos 0 % [facility] % Baso 0 % [facility] # Neutros 8.67 (H) 1.56 - 6.13 [facility] # Lymphs 0.92 (L) 1.18 - 3.74 [facility] # Monos 0.50 (H) 0.24 - 0.36 [facility] # Eos 0.00 (L) 0.04 - 0.36 [facility] # Baso 0.01 0.01 - 0.08 [facility] Immature 0 0 - 1 % [facility] Granulocytes-[facility] Specimen Blood Performing Organization Address City/State/Zipcode Phone Number [facility] [address] [place] [address] CENTER Hepatic function panel (07/10/2019 3:29 AM CDT)Only the most recent of4 results within the time period is included. Pathologist Sig nature Protein, Total 6.9 6.0 - 8.3 gm/dL [facility] Albumin 3.7 3.5 - 5.0 g/dL [facility] Total Bilirubin 0.6 0.2 - 1.2 mg/dL [facility] Bilirubin, Direct 0.3 0.1 - 0.5 mg/dL [facility] Alkaline Phosphatase 195 (H) 40 - 150 U/L [facility] AST 109 (H) 5 - 34 U/L [facility] ALT 314 (H) 6 - 55 U/L [facility] Specimen Blood Narrative Performed At Copyist SHELLY - JACOBY Guerrero [facility] Performing Organization Address City/State/Zipcode Phone Number [facility] [address] [place] [address] CENTER Basic metabolic panel (07/10/2019 3:29 AM CDT)Only the most recent of3 results within the time period is included. Sodium 136 136 - 145 meq/L [facility] Potassium 4.0 3.5 - 5.1 meq/L [facility] Chloride 104 98 - 107 meq/L [facility] CO2 24 22 - 29 meq/L [facility] BUN 5 (L) 7 - 21 mg/dL [facility] Creatinine 0.69 0.57 - 1.25 [facility] mg/dL [facility] Glucose 114 (H) 70 - 105 mg/dL [facility] Calcium 8.7 8.4 - 10.2 [facility] mg/dL [facility] EGFR 120Comment: mL/min/1.73 sq [facility] ESTIMATED GFR IS NOT [facility] ACCURATE CENTER CREATININE CLEARANCE IN PREDICTING GLOMERULAR FILTRATION RATE. ESTIMATED GFR IS NOT APPLICABLE FOR DIALYSIS PATIENTS. Specimen Blood Narrative Performed At Copyist SHELLY - JACOBY Guerrero [facility] Performing Organization Address City/State/Zipcode Phone Number [facility] [address] [place], [place] [phone] [place] POC-Glucose meter (07/09/2019 9:17 PM CDT)Only the most recent of12 results within the time period is included. POC-Glucose Meter 99Comment: : 70 - 110 mg/dL [facility] TESTED AT [address], [address]: Copyist/Technic alfonso ID = [id number] for MALIHA KELSEY Specimen Blood Performing Organization Address City/[facility]/Zipcode Phone Number [place] [phone] [place], [place] [phone] [place] Tissue Exam (07/09/2019 5:29 PM CDT) Case Report Surgical Pathology Report Case: [id number] [facility] Authorizing Provider: Shimon Olivier MD Collected: 07/09/2019 1729 [facility] Ordering Location: [address] Received: 07/10/2019 02 [facility] Service Pathologist: Babak Hermosillo MD Specimens: A) - Biopsy, L iver B) - Gall bladder DIAGNOSIS A. [facility] Electronica lly - PORTAL TRACTS WITH MILD CHRONIC INFLAMMATION [facility] signed by Jaimee, - NO SIGNIFICANT STEATOSIS SEEN [facility] MD Babak on - NO LOBULAR INFLAMMATION OR BALLOONING DEGENERATION SEEN 07/11/2019 at 5:32 - NO SIGNIFICANT FIBROSIS SEEN PM - NO STAINABLE IRON - SEE COMMENT B. GALLBLADDER, CHOLECYSTECTOMY - CHRONIC CHOLECYSTITIS - CHOLELITHIASIS Signing Pathologist Direct Phone Line: COMMENT Clinical correlation with [facility] ser[facility] is recommended. [facility] CPT Code(s) 40048, 03875, 22240 X 4 [facility] CLINICAL HISTORY Biliary calculus of other [facility] '[facility] site with obstruction. [facility] SPECIMEN SOURCE A. Liver biopsy [facility] B. Gallbladder [facility] GROSS DESCRIPTION A. Received in formalin labe led with the patient's name, accession number and "liver biopsy" is a 1.4 cm in length x 0.1 cm in diameter amos-yellow soft tissue core, which is filtered and submitted in toto in A1. [facility] B. Received in formalin labe led with the patient's name, accession number and "gallbladder" is a 6.5 x 2.4 x 1.3 cm intact gallbladder with a 0.2 cm in length x 0.3 cm in diameter attached cystic duct. MEDICAL CENTER The serosa is green-pink, sm ooth and hyperemic. The specimen is opened to reveal approximately 2 mL of green bile and a 1.0 x 0.4 x 0.3 cm aggregate of yellow bosselated calculi. There are no calculi lo dged within the cystic duct. The mucosa is amos-pink, trabeculated and displays a moderate amount of yellow stippling. The wall measures 0.3 cm thick. Interactive [employer] Specialist sections are submitted in B1-B2, with the inked cystic duct margin in B1. PA/ew MICROSCOPIC Performed. [facility] SPECIAL STUDIES The interpretation of this c ase included the use of immunohistochemistry or special stains on block A. [facility] Trichrome- no significant fibrosis [facility] reticulin- normal trabeculae MEDICAL CENT ER Iron-negative PAS-D- no abnormal intracellular deposits Control Slides Examined: In -house known positive controls were evaluated along with the test tissue. These control slides run alongside of the patients sample show appropriate staining. Internal posit jc and negative controls when available are evaluated Immunohistochemistry technic al testing was performed at [facility], Pathology Laboratory where it was developed and its performance characteristics were determined. It has not be en cleared or approved by [facility] U.S. Food and Drug Administration. The FDA has determined that such clearance or approval is not necessary. The test is used for clinical purposes. It should not be regarde d as investigational or for research. This laboratory is certified under the Clinical Laboratory Improvement Amendments of 1988 (CLIA-88) as qualified to perform high complexity clinical laboratory testing. Gross assessment [facility] was performed at [place], Department of [facility] Pathology, [address] [place] [address], [place] [address], Technical [facility] component was [place], [facility] performed at Pathology, [address] [place] [address], [place] [address], Professional [facility] component was [place], [facility] BC performed at Pathology, [address] [place] [id number], Specimen Tissue - Biopsy, Liver Tissue specimen (specimen) - Gallbladder structure (body structure) Performing Organization Address City/[facility]/Zipcode Phone Number [address] [address] CENTER Prothrombin time/INR (07/09/2019 4:26 AM CDT)Only the most recent of2 results within the time period is included. Pathologist Sig nature Protime 13.3 11.9 - 14.2 seconds [facility] INR 1.0 <=5.9 [facility] Specimen Blood Narrative Performed At Effective 09/20/2018: PT Reference Range [facility] Change New: 11.9-14.2 Previous: 11.7-14.7 RECOMMENDED COUMADIN/WARFARIN INR THERAPY RANGES STANDARD DOSE: 2.0-3.0 Includes: PROPHYLAXIS for venous thrombosis, systemic embolization; TREATMENT for venous thrombosis and/or pulmonary embolus. HIGH RISK: Target INR is 2.5-3.5 for patients wiht mechanical heart valves. Performing Organization Address City/[facility] Phone Number [address] [address] CENTER Lipase (07/09/2019 4:26 AM CDT)Only the most recent of3 resultswithin the time period is included. Pathologist Sig nature Lipase 11 8 - 78 U/L [facility] Specimen Blood Narrative Performed At Copyist ID - [place] F [facility] Performing Organization Address City/[facility]/Zipcode Phone Number [address] [address] CENTER Hemoglobin A1c (07/08/2019 6:47 PM CDT) Pathologist Sig nature Hemoglobin A1C 5.2 4.3 - 6.1 % [facility] Specimen Blood Performing Organization Address City/State/Zipcode Phone Number [facility] [address] [place] [address] [place] TRANSFUSION SERVICE REPORT - SCAN (07/08/2019 6:00 PM CDT) Narrative Performed At This result has an attachment that is no t available. FL fluoro non-specific up to 1 hour (07/08/2019 10:16 AM CDT) Specimen Narrative Performed At FINAL REPORT [facility] A fluoroscopic unit was utilized for a p rocedure performed in the operating room. No interpretation was re quested. Please refer to the operative report regarding findings. Ple ase refer to PACS for patient radiation dose information. Signed: JR Slater Robert MD Report Verified Date/Time: 07/08/2019 10:29:57 Reading Location: [address] Room Procedure Note Interface, External Ris In - 07/08/2019 10:33 AM CDT FINAL REPORT A fluoroscopic unit was utilized for a p rocedure performed in the operating room. No interpretation was re quested. Please refer to the operative report regarding findings. Ple ase refer to PACS for patient radiation dose information. Signed: JR Slater Robert MD Report Verified Date/Time: 07/08/2019 1 0:29:57 Reading Location: [facility] C[address] Neuro [facility] Room Performing Organization Address City/State/Zipcode Phone Number [facility] REPORT OF PROCEDURE - ENDOSCOPY URL (07/08/2019 10:12 AM CDT) Narrative Performed At This result has an attachment that is no t available. US abdomen limited (07/08/2019 5:00 AM CDT) Specimen Narrative Performed At FINAL REPORT [facility] History: Elevated LFTs Abdominal ultrasound dated 09/07/2019 Comparison: None Comment: Real-time transabdominal ultr asound of the right upper quadrant abdomen was performed. The exam ination is limited by bowel gas. Liver: 14.5 cm , normal. Normal echogeni city. No focal lesions. Gallbladder: Gallbladder sludge. No defi nite gallstones. There is mild bilateral thickening, measuring 3.5 mm. No perocholecystic fluid.. Sonographic Kelley's sign was el icited. The transverse diameter of the gallbladder lumen is 2.3 cm. Biliary tree: No intrahepatic ductal dil atation. CBD: 5.5 mm. MPV: 8 mm Pancreas: Obscured by bowel gas Right kidney: 11.1 x 6.5 x 7.1 cm. Heidi l echogenicity. There is a 4.9 cm upper pole parapelvic cyst or foc al dilated calyx. Otherwise no hydronephrosis. No ascites is present in the abdomen. The visualized abdominal aorta is normal in caliber. The IVC and Hepatic veins are patent. Impression: Limited examination, as described. Gallbladder sludge but no definite galls tones. There is gallbladder wall thickening and a sonographic Kelley sign was elicited. These findings are nonspecific but in the cont ext of a recently performed hepatobiliary nuclear medicine imaging s can suggest the possibility of chronic cholecystitis. Signed: José Miguel Torres MD Report Verified Date/Time: 07/08/2019 05:50:43 Procedure Note Interface, External Ris In - 07/08/2019 5:53 AM CDT FINAL REPORT History: Elevated LFTs Abdominal ultrasound dated 09/07/2019 Comparison: None Comment: Real-time transabdominal ultra sound of the right upper quadrant abdomen was performed. The exam ination is limited by bowel gas. Liver: 14.5 cm , normal. Normal echogeni city. No focal lesions. Gallbladder: Gallbladder sludge. No defi nite gallstones. There is mild bilateral thickening, measuring 3.5 mm. No perocholecystic fluid.. Sonographic Kelley's sign was el icited. The transverse diameter of the gallbladder lumen is 2.3 cm. Biliary tree: No intrahepatic ductal dil atation. CBD: 5.5 mm. MPV: 8 mm Pancreas: Obscured by bowel gas Right kidney: 11.1 x 6.5 x 7.1 cm. Heidi l echogenicity. There is a 4.9 cm upper pole parapelvic cyst or foc al dilated calyx. Otherwise no hydronephrosis. No ascites is present in the abdomen. The visualized abdominal aorta is normal in caliber. The IVC and Hepatic veins are patent. Impression: Limited examination, as described. Gallbladder sludge but no definite galls tones. There is gallbladder wall thickening and a sonographic Kelley sign was elicited. These findings are nonspecific but in the cont ext of a recently performed hepatobiliary nuclear medicine imaging s can suggest the possibility of chronic cholecystitis. Signed: José Miguel Torres MD Report Verified Date/Time: 07/08/2019 0 5:50:43 Performing Organization Address City/State/Zipcode Phone Number GE RIS Screen, urine (07/07/2019 7:32 PM CDT) Pathologist Sig nature Preg Test, Ur Negative [facility] Specimen Urine Performing Organization Address City/[facility]/Zipcode Phone Number [place] [phone] [place] [address] CENTER Mitochondrial Ab Titer (07/07/2019 4:49 PM CDT) Mitochondrial Ab TNP <1:20 [facility] Titer Comment: INCORPORATED Test Not Performed. Screening test Negative or Not Det ected. Titer not performed. Specimen Blood Narrative Performed At Performing Lab [facility] [address] [place] [address] Debbie Taylor MD, PhD, VIKKI Performing Organization Address City/[facility]/Zipcode Phone Number [facility] [place] [address] INCORPORATED [address] [facility] [facility] Mitochondrial Ab Screen (07/07/2019 4:49 PM CDT) Anti-Mitochond NEGATIVE NEGATIVE [facility] Abs Comment: INCORPORATED This test was developed and its analytical performance characteristics have been determined by [facility]. It has not been cleared or approved by FDA. This assay has been validated pursuant to the CLIA regulations and is used for clini na purposes. Specimen Blood Narrative Performed At Performing Lab [facility] [address] [place] [address] Debbie Taylor MD, PhD, VIKKI Performing Organization Address [facility] Phone Number [place] [address] INCORPORATED [address] [facility] Hepatitis A antibody, IgG (07/07/2019 4:49 PM CDT) Pathologist Sig nature Hep A IgG Reactive (A) Nonreactive [facility] Specimen Blood Narrative Performed At Copyist [facility] Performing Organization Address [facility] Phone Number [address] [address] CENTER Anti-Mitochondrial Ab, reflex to titer (07/07/2019 4:49 PM CDT) Pathologist Sig nature Scan Result [facility] D Specimen Blood Performing Organization Address [facility] Phone Number [place] [address] INCORPORATED [address] [facility] Iron, TIBC, % sat. (without ferritin) (07/07/2019 4:49 PM CDT) Pathologist Sig nature Iron 98.0 40.0 - 160.0 ug/dL [facility] TIBC 308 250 - 450 ug/dL [facility] Iron % Saturation 32 20 - 55 % [facility] Specimen Blood Narrative Performed At Copyist [facility] Performing Organization Address [facility] Phone Number [address] [address] CENTER Actin (Smooth Muscle) Antibody, IgG (07/07/2019 4:49 PM CDT) Anti-Smooth <20 See Note: U [facility] Muscle Ab Comment: INCORPORATED Reference Range: <20 NEGATIVE > OR = 20 POSITIVE Antibodies recognizing actin are the main component of smooth muscle antibodies associated with autoimmune liver disease. Actin antibodies are found in approximately 75% of patients with autoimmune hepatitis (AIH) type 1, approximately 65% of patients with autoimmune cholangitis, approximately 30% of patients with primary biliary cirrhosis, and approximately 2% of healthy people. High values are closely correlated with AIH type 1. Specimen Blood Narrative Performed At Performing Lab [facility] [address] [place] [address] Debbie Taylor MD, PhD, VIKKI Performing Organization Address City/[facility]/Zipcode Phone Number [place] [address] INCORPORATED [address] [facility] CAMI Titer & Pattern (07/07/2019 4:49 PM CDT) Pathologist Sig nature CAMI Titer 1:640 [facility] CAMI Pattern Nucleolar [facility] Specimen Blood Performing Organization Address City/[facility] Phone Number [facility] [address] [place] [address] CENTER Ceruloplasmin (07/07/2019 4:49 PM CDT) Ceruloplasmin 40 18 - 53 mg/dL [facility] Comment: INCORPORATED Adults: Males: 18-36 mg/dL Females: 18-53 mg/dL Pediatrics: Males (mg/dL) Females (mg/dL) -------- ------- 0-30 Days 8-25 3-28 31 Days-11 Month 15-48 15-43 1-3 Years 25-56 2 9-54 4-6 Years 29-56 2 6-54 7-9 Years 25-52 2 3-48 10-12 Years 21-51 21 -48 13-15 Years 20-50 21 -46 16-18 Years 20-45 22 -50 The pediatric ranges are derived from the following criteria: Rossy SJ, Danny JM, Viki J et al Pediatric referenc e ranges for [id number] and ceruloplasmin. Clin. Chem 1997; 43:S1999 Pediatric Reference Ranges, 2nd., SF Rossy,et al. editors. [employer], [place], [place] 1997. Specimen Blood Narrative Performed At Performing Lab [facility] *SPL [facility], [id number] [place] [id number] Cami Ewing MD, PhD Performing Organization Address City/State/Zipcode Phone Number [place] [address] INCORPORATED [address] [facility] Hepatitis panel, acute (07/07/2019 4:49 PM CDT) Pathologist Sig nature Hep A IgM Nonreactive Nonreactive [facility] Hep B C IgM Nonreactive Nonreactive [facility] Hepatitis C Ab Nonreactive Nonreactive [facility] HBsAg Screen Nonreactive Nonreactive [facility] Specimen Blood Narrative Performed At Copyist [facility] Performing Organization Address City/[facility] Phone Number [address] [address] CENTER Hepatitis B core antibody, total (07/07/2019 4:49 PM CDT) Pathologist Sig nature Hep B Core Total Ab Nonreactive Nonreactive [facility] Specimen Blood Narrative Performed At Copyist [facility] Performing Organization Address City/[facility] Phone Number [address] [address] CENTER Hepatitis B surface antibody (07/07/2019 4:49 PM CDT) Pathologist Sig nature Hep B S Ab 26.5 (H) <8.0 mIU/mL [facility] Specimen Blood Narrative Performed At Copyist [facility] Performing Organization Address City/[facility]/Zipcode Phone Number [address] [address] [place] Anti-Nuclear Antibody (CAMI) (07/07/2019 4:49 PM CDT) Pathologist Sig nature CAMI Positive (A) Negative [facility] Specimen Blood Narrative Performed At Test performed by IFA method. [facility] Performing Organization Address [facility] Phone Number [address] [address] [place] Immunoglobulin G (IgG) (07/07/2019 4:49 PM CDT) Pathologist Sig nature IgG 1,269 540-1,822 mg/dL [facility] Specimen Blood Narrative Performed At Copyist [facility] Performing Organization Address [facility] Phone Number [address] [address] [place] Ferritin (07/07/2019 4:49 PM CDT) Pathologist Sig nature Ferritin 109 5 - 275 ng/mL [facility] DICAL [place] Specimen Blood Narrative Performed At Copyist ID - [facility] Performing Organization Address [facility] Phone Number [address] [address] CENTER ABORH, manual (07/07/2019 4:48 PM CDT) Pathologist Sig nature Rh Factor POS [facility] DICAL [place] ABO Grouping A [facility] Specimen Blood Performing Organization Address City/[facility] Unit[facility] Phone Number [address] [address] PT/aPTT (07/07/2019 4:48 PM CDT) Pathologist Sig nature Protime 13.1 11.9 - 14.2 seconds [facility] INR 1.0 <=5.9 [facility] PTT 26.5 22.5 - 36.0 seconds [facility] Specimen Blood Narrative Performed At Effective 09/20/2018: PT Reference Range [facility] Change New: 11.9-14.2 Previous: 11.7-14.7 RECOMMENDED COUMADIN/WARFARIN INR THERAPY RANGES STANDARD DOSE: 2.0-3.0 Includes: PROPHYLAXIS for venous thrombosis, systemic embolization; TREATMENT for venous thrombosis and/or pulmonary embolus. HIGH RISK: Target INR is 2.5-3.5 for patients wiht mechanical heart valves. Performing Organization Address City/State/Zipcode Phone Number [facility] [address] [place], [place] [id number] CENTER [id number] (07/07/2019 4:48 PM CDT) Pathologist Sig nature A-1 Antitrypsin 133.40 90.00 - 200.[address] [facility] mg/dL [facility] Specimen Blood Narrative Performed At Copyist SHELLY - VINITA Malone [facility] Performing Organization Address City/State/Zipcode Phone Number [facility] [address] [place], [place] [id number] CENTER NM hepatobiliary (HIDA) scan (07/07/2019 2:47 PM CDT) Specimen Narrative Performed At FINAL REPORT [facility]age PROCEDURE: HEPATOBILIARY SCAN CPT CODE: [id number] INDICATION: epigastric pain, ch olelithiasis PROTOCOL: 5.3 mCi of Tc-99m meb rofenin was injected intravenously. Images of the upper abdom en were obtained for approximately 130 minutes after tracer i njection. FINDINGS: Initial tracer u ptake into the liver is uniform but moderately delayed. Subsequent trace r clearance from the liver is markedly delayed. There is delayed and d ecreased visualization of the gallbladder. Tracer appears in the small bowel. IMPRESSION: 1. Diffuse hepatocellular dysfunction wi th cholestasis. 2. Poor gallbladder filling may be due t o hepatocellular dysfunction alone, but chronic cholecystitis can not be excluded. Signed: Fariha Peralta MD Report Verified Date/Time: 07/07/2019 15:52:12 Procedure Note Interface, External Ris In - 07/07/2019 3:54 PM CDT FINAL REPORT PROCEDURE: HEPATOBILIARY SCAN CPT CODE: [id number] INDICATION: epigastric pain, neelima lithiasis PROTOCOL: 5.3 mCi of Tc-99m mebrof enin was injected intravenously. Images of the upper abdom en were obtained for approximately 130 minutes after tracer i njection. FINDINGS: Initial tracer uptake into the liver is uniform but moderately delayed. Subsequent trace r clearance from the liver is markedly delayed. There is delayed and d ecreased visualization of the gallbladder. Tracer appears in the small bowel. IMPRESSION: 1. Diffuse hepatocellular dysfunction wi th cholestasis. 2. Poor gallbladder filling may be due t o hepatocellular dysfunction alone, but chronic cholecystitis can not be excluded. Signed: Fariha Peralta MD Report Verified Date/Time: 07/07/2019 1 5:52:12 Performing Organization Address [facility] Phone Number [facility] Type and screen, automated (07/07/2019 11:32 AM CDT) Pathologist Sig nature ABO/RH AUTOMATED A POSITIVE [facility] Ab Scrn NEGATIVE [facility] Specimen Blood Performing Organization Address [facility] Phone Number [address] [address] Amylase (07/07/2019 11:32 AM CDT) Pathologist Sig nature Amylase 62 25 - 125 U/L [facility] Specimen Blood Narrative Performed At Copyist ID - NTP [facility] Specimen slightly icteric Performing Organization Address [facility] Phone Number [address] [address] CENTER Comprehensive metabolic panel (07/07/2019 11:32 AM CDT) Protein, Total 7.0 6.0 - 8.3 [facility] gm/dL [facility] Albumin 3.9 3.5 - 5.0 [facility] g/dL [facility] Alkaline 218 (H) 40 - 150 U/L [facility] Phosphatase [facility] Total Bilirubin 3.1 (H) 0.2 - 1.2 [facility] mg/dL [facility] Sodium 138 136 - 145 [facility] meq/L [facility] Potassium 3.7 3.5 - 5.1 [facility] meq/L [facility] Chloride 107 98 - 107 [facility] meq/L [facility] CO2 24 22 - 29 meq/L [facility] BUN 10 7 - 21 mg/dL [facility] Creatinine 0.79 0.57 - 1.25 [facility] mg/dL [facility] Glucose 91 70 - 105 [facility] mg/dL [facility] Calcium 9.1 8.4 - 10.2 [facility] mg/dL [facility] AST 461 (H) 5 - 34 U/L [facility] ALT 777 (H) 6 - 55 U/L [facility] EGFR 103Comment: mL/min/1.73 [facility] ESTIMATED GFR IS sq [facility] NOT ACCURATE MEDICAL CENTER CREATININE CLEARANCE IN PREDICTING GLOMERULAR FILTRATION RATE. ESTIMATED GFR IS NOT APPLICABLE FOR DIALYSIS PATIENTS. Specimen Blood Narrative Performed At Copyist ID - JACOBY M [facility] Specimen slightly icteric Performing Organization Address City/[facility]/Zipcode Phone Number [facility] [address] [place] [address] CENTER Blood Culture - Routine (Right Venipuncture) (07/07/2019 6:34 AM CDT)Only the most recent of2 resultswithin the time period is included. Pathologist Sig nature Result No growth in 5 days [facility] Specimen Blood - Entire left upper arm (body stru cture) Performing Organization Address City/[facility]/Zipcode Phone Number [facility] [address] [place] [address] CENTER after 05/29/2019 Insurance Payer Benefit Plan / Subscriber ID Effective Phone Address T ype Group Dates MEDICAID - MEDICAID COMM [id number] 2018-Prese Medicaid MEDICAID MGD HEALTH CHOICE nt Con tracted CARE Advance Directives For more information, please contact: [phone] Code Status Date Activated Date Inactivated Comments Full Code 07/07/2019 5:56 AM 07/10/2019 5:36 PM This code status was determined by: Patient
--- OUTSIDE RECORDS SUMMARY | 2020-05-29 15:35 | XMS REPORT | Continuity of Care Document ---
:1990 Author Organization [facility] t Address [address] [place] [address] Care Team Providers Name Role Phone Oumou Deleon Attending Clinician BOBBY Attending Clinician Unavailable Bobby COLINDRES Attending Clinician Óscar COLINDRES Attending Clinician Katarina Gann MD Attending Clinician Ashley Mueller MD Attending Clinician Esteban Patel MD Attending Clinician Bee COLINDRES Attending Clinician Desmond COLINDRES Attending Clinician Samantha Morgan MD Attending Clinician Serjio Shell CRNA Attending Clinician Aldo Jiang MD Attending Clinician ASHLEY MUELLER Admitting Clinician Unavailable Payers Payer Name Policy Type Policy Effective Date Expiration Date Sour ce Number MEDICAID - [id number] [address] [facility] MEDICAID MGD 00:00:00 - Medical [place] Formerly [facility] HEALTH [id number]-PresentMedic aid Contracted Problems Condition Condition Condition Status Onset Resolution Last Treating Co mments Source Name Details Category Date Date Treatment Clinician Date Cholelithi Cholelithi Disease Active [facility] Medical 00 [place] RUQ pain RUQ pain Disease [facility] Allergies, Adverse Reactions, Alerts This patient has no known allergies or adverse reactions. Family History Family Member Diagnosis Comments Start Date Stop Date Source Natural father Unremarkable [facility] Natural mother Unremarkable [facility] Social History Social Habit Start Date Stop Date Quantity Comments Source Sex Assigned At [facility] Tobacco use and 2019-07-10 2019-07-10 Never used [facility] - exposure 00:00:00 00:00:00 [facility] Alcohol intake 2019-07-10 2019-07-[address] [facility] Scotty Ludestiny - 00:00:00 00:00:00 of alcohol [facility] (finding) Tobacco Comment 2019-07-08 2019-07-08 smoke around [facility] - 00:00:00 00:00:00 smokers ,6 mos Medical Ce nter ago Alcohol Comment 2019-07-08 2019-07-08 [facility]00 [facility] History of 2019-02-06 Current smoker [facility] - tobacco use 00:00:00 Medical Cent[facility] r Smoking Status Start Date Stop Date Source Former smoker 2019-07-10 00:00:00 2019-07-10 00:00:00 [facility] Medications Ordered Filled Start Stop Current Ordering Indication Dosage Frequency Signature Comments Components Source Medication Medication Date Date Medication? Clinician (SIG) Name Name multivitami Yes 1{capsu QD Take [address] [facility] capsule 3-17 le} capsule by Earnest s - 15:36: mouth Medical 40 daily. Center oxyCODONE-a Yes 1{tbl} Take [address] cetaminophe 3-17 tablet by Rhoda es - n 00:00: mouth Medical (PERCOCET) 00 every 4 Center 5-325 mg (four) per tablet hours as needed. Max Daily Amount: 6 tablets ketorolac 2019- No 10mg Take 1 [facility] (TORADOL) 07-09 tablet (10 Rhoda es - 10 mg 00:00: 23:59 mg total) Medica l tablet 00 :00 by mouth Center every 6 (six) hours as needed for Pain for up to 5 days. Vital Signs Vital Name Observation Time Observation Value Comments Source Systolic blood 2019-07-10 08:00:00 158 mm[Hg] [facility] Diastolic blood 2019-07-10 08:00:00 87 mm[Hg] [facility] S t [facility] Heart rate 2019-07-10 08:00:00 89 /min [facility] Body temperature 2019-07-10 08:00:00 37 Michell [facility] Respiratory rate 2019-07-10 08:00:00 18 /min [facility] Oxygen saturation in 2019-07-10 08:00:00 98 /min [facility] Arterial blood by Medical Ce nter Pulse oximetry Body height 2019-07-08 15:28:00 162.6 cm [facility] Procedures Procedure Date / Time Performing Clinician Source Performed REPORT OF PROCEDURE - 2019-07-11 10:02:00 Provider, Default [facility] ENDOSCOPY SCAN Scanning [facility] BASIC METABOLIC PANEL (7) 2019-07-10 03:29:00 Haley Krueger I [facility] HEPATIC FUNCTION PANEL 2019-07-10 03:29:00 Haley Krueger [facility] CBC W/PLT COUNT & AUTO 2019-07-10 03:29:00 Haley Krueger [facility] POCT-GLUCOSE METER 2019-07-09 21:17:[address] [facility] POCT-GLUCOSE METER 2019-07-09 18:11:00 Azeem [facility] TISSUE EXAM 2019-07-09 17:29:00 Shimon Logan [facility] LAPAROSCOPY,CHOLECYSTECTOM 2019-07-09 16:11:00 Shimon Logan [facility] POCT-GLUCOSE METER 2019-07-09 12:09:00 Azeem [facility] POCT-GLUCOSE METER 2019-07-09 10:01:00 Azeem [facility] BASIC METABOLIC PANEL (7) 2019-07-09 04:26:00 Vo, Haley Lewis [facility] HEPATIC FUNCTION PANEL 2019-07-09 04:26:00 Vo, Haleyjulius Joneslen Coello [facility] PROTHROMBIN TIME/INR 2019-07-09 04:26:00 Vo, Haley Joneslen ARREDONDO [facility] LIPASE 2019-07-09 04:26:00 GinorMaryan [facility] CBC W/PLT COUNT & AUTO 2019-07-09 04:26:00 Vo, Haley Joneslen Coello [facility] POCT-GLUCOSE METER 2019-07-08 22:41:00 [facility] HEMOGLOBIN A1C 2019-07-08 18:47:00 [facility] POCT-GLUCOSE METER 2019-07-08 18:17:00 [facility] TRANSFUSION SERVICE REPORT 2019-07-08 18:00:32 Celina Jaime [facility] POCT-GLUCOSE METER 2019-07-08 12:09[facility] NON-SPECIFIC UP 2019-07-08 10:16:[address] [facility] TO [facility] REPORT OF PROCEDURE - 2019-07-08 10:12:28 Lukas Jiang [facility] - ENDOSCOPY [facility] ERCP 2019-07-08 08:45:00 Lukas Jiang [facility] PROCEDURE W/ C-ARM 2019-07-08 08:45:[address] [facility] S [facility] ERCP,BALLOON SWEEPING 2019-07-08 08:45:00 Lukas Jiang [facility] ERCP,BALLOON DILATATION 2019-07-08 08:45:00 Apolinar [facility] ERCP,PAPILLOTOMY 2019-07-08 08:45:00 Apolinar [facility] POCT-GLUCOSE METER 2019-07-08 06:37:00 [facility] US ABDOMEN LIMITED 2019-07-08 05:00:00 [facility] BASIC METABOLIC PANEL (7) 2019-07-08 04:33:00 Haley Krueger I [facility] HEPATIC FUNCTION PANEL 2019-07-08 04:33:00 Evans, Haley Martinez VI C [facility] PROTHROMBIN TIME/INR 2019-07-08 04:33:[address] [facility] LIPASE 2019-07-08 04:33:00 [facility] CBC W/PLT COUNT & AUTO 2019-07-08 04:33:00 Jessica Mueller [facility] DIFFERENTIAL [facility] POCT-GLUCOSE METER 2019-07-07 21:31:00 [facility] SCREEN, URINE 2019-07-07 19:32:00 [facility] POCT-GLUCOSE METER 2019-07-07 17:58:00 [facility] HEPATITIS PANEL, ACUTE 2019-07-07 16:49:00 Óscar [facility] HEPATITIS A ANTIBODY, IGG 2019-07-07 16:49:[address] [facility] HEPATITIS B SURFACE 2019-07-07 16:49:00 Melanie Mohamud [facility] - ANTIBODY [facility] HEPATITIS B CORE ANTIBODY, 2019-07-07 16:49:[address] [facility] TOTAL [facility] ANTI-NUCLEAR ANTIBODY 2019-07-07 16:49:00 Melanie Mohamud [facility] - (CAMI) [facility] ANTI-MITOCHONDRIAL AB, 2019-07-07 16:49:00 Melanie Mohamud [facility] - REFLEX TO [facility] ACTIN (SMOOTH MUSCLE) 2019-07-07 16:49:00 [facility] - ANTIBODY, IGG [facility] IMMUNOGLOBULIN G (IGG) 2019-07-07 16:49:00 [facility] IRON, TIBC, % SAT. 2019-07-07 16:49:[address] [facility] (WITHOUT FERRITIN) Medical Cente r FERRITIN 2019-07-07 16:49:00 [facility] CERULOPLASMIN 2019-07-07 16:49:00 [facility] MITOCHONDRIAL AB SCREEN 2019-07-07 16:49:00 [facility] MITOCHONDRIAL AB TITER 2019-07-07 16:49:00 [facility] CAMI TITER AND PATTERN 2019-07-07 16:49:00 [facility] PT/APTT 2019-07-07 16:48:00 Óscar [facility] [id number]\\, 2019-07-07 16:48:00 [facility] AB[facility]H, MANUAL 2019-07-07 16:48:00 Carmen Recinos [facility] NM HEPATOBILIARY (HIDA) 2019-07-07 14:47:00 Jessica Mueller [facility] POCT-GLUCOSE METER 2019-07-07 12:05:00 Óscar [facility] COMPREHENSIVE METABOLIC 2019-07-07 11:32:00 Óscar [facility] HEPATIC FUNCTION PANEL 2019-07-07 11:32:00 Haley Krueger [facility] AMYLASE 2019-07-07 11:32:00 Stef Manriquez [facility] LIPASE 2019-07-07 11:32:00 Stef Manriquez [facility] TYPE AND SCREEN, AUTOMATED 2019-07-07 11:32:00 Haley Krueger [facility] CBC W/PLT COUNT & AUTO 2019-07-07 11:32:[address] [facility] Scotty [facility] BLOOD CULTURE 2019-07-07 06:34:00 Jessica Mueller [facility] BLOOD CULTURE 2019-07-07 06:33:00 Jessica Mueller [facility] POCT-GLUCOSE METER 2019-07-07 06:32:00 Leigh Ann Rosales [facility] Plan of Care Planned Activity Planned Date Details Comments Source Future Scheduled 2020-01-[address] [facility] - Test 00:00:00 measurement [facility] (procedure) [code = 59895781] Future Scheduled 2019-12-25 INFLUENZA VACCINE (#1) [facility] Test 00:00[facility]00 [code = INFLUENZA Medical Ce nter VACCINE (#1)] Future Scheduled 2009-02-[address] [facility] - Test 00:00:00 malignant neoplasm of Medica l Center cervix (procedure) [code = 443556233] Future Scheduled [address] [facility] - Test 00[facility]00:00 (procedure) [code = Medical Center 61536577] Future Scheduled 1998-02-[address] DIABETIC EYE EXAM [facility] - Test 00:00:00 [code = DIABETIC EYE [facility] EXAM] Future Scheduled 1998-02-[address] [facility] - Test 00:00:00 examination [facility] (regime/therapy) [code = 538211159] Future Scheduled 1998-02-09 Urine screening for [facility] - Test 00:00:00 protein (procedure) Medical Center [code = 819771520] Future Scheduled 1994-02-[address] [facility] - Test 00:00:00 0-64 YRS (1 of 1 - Medical C enter PPSV23) [code = PNEUMOCOCCAL VACCINE 0-64 YRS (1 of 1 - PPSV23)] Encounters Start End Encounter Admission Attending Care Care Encounter Source Date/Time Date/Time Type Type Clinicians Facility Department ID 2020-05-22 2020-05-22 Telephone [facility] [id number] 00:00:00 00:00:00 Heidy Coello STRATEGIC PLANNING DIRECTOR [id number] [facility] [id number] MATERNAL [id number] & CHILD [address] [place] [address] Results Test Description Test Time Test Comments Results Result Comments Source Blood Culture - Routine (Right Venipuncture) 2019-07-12 10:0 0:00 Test Item Value Reference Range Interpretation Comme nts Result (test code = 6463-4) No growth in 5 days [facility] [id number] 10:00:00 Test Item Value Reference Range Interpretation Comments CULTURE (BEAKER) (test No growth in 5 days code = 1095) BLOOD [id number] 10:00:00 Test Item Value Reference Range Interpretation Comments CULTURE (BEAKER) (test No growth in 5 days code = 1095) CAMI Titer & [id number] 09:54:00 Test Item Value Reference Range Interpretation Comments CAMI Titer (test code = 19000-4) 1:640 [facility]I Pattern (test code = 1781) Nucleolar [facility] TITER AND [id number] 09:54:00 Test Item Value Reference Range Interpretation Comments CAMI TITER (BEAKER) (test code = :640 1541) [facility]I PATTERN (BEAKER) (test code = Nucleolar 1781) Anti-Nuclear Antibody (CAMI)2019-07-12 09:53:00 Test Item Value Reference Range Interpretation Comments CAMI (test code = 85216-0) Positive Negative A MCKAYLA (test code = MCKAYLA) Test performed by IFA method. Lab Interpretation (test Abnormal code = 83733-9) [facility]TIBODY (CAMI)2019-07-12 09:53:00 Test Item Value Reference Range Interpretation Comments ANTI-NUCLEAR ANTIBODY (CAMI) (BEAKER) Positive Negative A (test code = 418) Test performed by IFA method.ANTI-MITOCHONDRIAL AB, REFLEX TO [id number] 08:58:00 Test Item Value Reference Range Interpretation Comments SCAN RESULT (test code = 1738134) Anti-Mitochondrial Ab, reflex to [id number] 08:58:00Scan ResultQUEST DIAGNOSTIC INCORPORATEDChildren[facility] AngelesActin (Smooth Muscle) Antibody, [id number] 21:59:00 Test Item Value Reference Range Interpretation Comments Anti-Smooth <20 See Note: U Reference Range :<20 Muscle Ab NEGATIVE> O R = 20 (test code = POSITIVE Antibo dies ) recognizing act in are the main compon entof smooth muscle antibodies asso ciated withautoimmune liver disease. Actin antibodies aref ound in approximatel y 75% of patients withautoimmune hepatitis (AIH) type 1, approximatel y65% of patients wit h autoimmune cholangitis,yusef roxima tely 30% of pat ients with primary biliarycirrhosi s, and approximately 2 % of healthy people. High values are clos macy correlated with AIH type 1. MCKAYLA (test code Performing Lab = MCKAYLA) [employer] [facility] [address] [place] [address] Debbie Taylor MD, PhD, VIKKI [facility] [id number] 17:32:00 Test Item Value Reference Range Interpretation Comments Case Report (test code Surgical Pathology = 104) Report Case: [id number] Authorizing Provider: Shimon Logan MD Collected: 07/09/2019 1729 Ordering Location: [address] Received: 07/10/2019 0902 Service Pathologist: Babak Hermosillo MD Specimens: A) - Biopsy, Liver B) - Gallbladder DIAGNOSIS (test code = g2kfxGNaGLXxr8nkKZRipR 3220) FuZzEwMzNcZnRuYmpcdWMx REqkeuOmFCjci2MyE1XsNm AwMFxhbnNpXGRlZmxhbmcx ZQKrRPR5alRzEILvVAiiEV KxCWknKb2ufLCkjLdxOjTg VCRxp3dsadPQrszhdLi6i9 bfZYYnCeR5pTExMSuxN6nz alSxkKSrGCTuRNi0cZ14KL FksO0peOOnIAowilEnZIuk rxUypmMaLqr9MECaO3sfUA CuNQZtU2FwAC1bUYThCpd6 QBW6GDL4rSssj3B3oOFfsZ OnxQzlFkZjLeHtUTXEf6Po UKe0oWmoH3EyZZHwNxY2iQ QgUGFyYWdyYXBoIEZvbnQ7 xX45SAvezaA3mHOqp2Adk6 4vg672lO5oqTSpUYU9KZKi ZAOawSOwKIJpDAD5ZNTvtD PeI1f6CaNzgCIoB5O6BeBc hHQcS6E6DpCxePDlY6Y2Uy OgmXMgPDKqqNWmJh1muQKt eBOvma1blm05AGR1i4UtoR ixDZJ9MCF2QkWfYj5loZFp KZPaTB5kGhJpsTRrTMEget 19uOllCOpueyQxhC2hFxEk KHFbbZIeLUVsBZ7egGMcYX PioG8bwiwxHXCiBoOqbwly TGMixYchvcYrEo1ayRbqHD M7TDidN9mjkN2jKnZ6PYsm S8iczE1cZLo7ZCepcCZ8GH LnpO1oNU4iztwse5qfYmSx IG4swxrkz0bzLqSoTP7isa s6k8loZdRjHS8eiptie1uh NzIwXGhlYWRlcnkwXGZvb3 ZqxjksJIItn7HaD8NdpXfg S67gtTfbV06fVGHzjWrnaD 1vzWmffK2oHrWcCoDfEXlj bFxwbGFpblxmMFxmczIwXH CqMJvbIFEqOCJyVfJtNW7b TElWRVIgQklPUFNZXHBhci UpUKMoJJ3ONKEOLWPBGPRU TsGMJFTTVJ8VMICpE4mJV7 6TQtSCNxLMWC4YQFCPS83t qPJpHY1sXGVNVfJFEVnGTT KHJ9QVZNOFNGUAZS5MZPId F0UPBshgZXScYQFmPG8ELZ vCZyMXFPBaWU2XTXHEJQHZ PF1RMQ3TSHUQUOwMA32HLt eaLCIWEM4TDjMUSO7NTJKE ZE5wrCAtPJ0ySGTOXyKKBJ qEMJGOT0YJLSYQRJIJD6UN UyBTRUVOXHBhciAtICAgTk 0dW7NHOU1NAzcGJPsPP44o GEJvtcYuXYUjA7IRAUHWHT 1FTlRccGFyXHBhciBCLiBc vDdclP9lXoXjRsQnNGQEOP eAAsbZWLWSVufoK3fJWRUH YQBBZLEGP30ALAWjzjSnGP MrM9zEB23SIsTCVV2FRUNB W3YQIVnTHCYgmzJeDHTaE4 hPTEVMSVRISUFTSVNccGxh yZ8eUbCaMxCaGLofWPK7x1 xydGYxXHNzdGUxODAwMFxh bnNpXGRlZmxhbmcxMDMzXG Y2ajOmQUFyUAllMGOaHChl Fs9ujOHuyGfnRrTbWYVpl0 jkztKMatcyaQi3s5xhBRHr LoM6tTZhKLnvR5ycxtErgM GwRZWzKFv3gS06CKTblT3n bOIzFVfmkqQgXxU6RAvxAK UkQfW4SGEsjWEbDNEfT6as ZWQwXGdyZWVuMFxibHVlMC W2eGrcx3N2nEHbrKCnuCap QnKqBwQsFxMAx8KoZHx2pP wrF9FgUUUkJhA7cSHlZQVh YHheCHAvBLAjpiE2kE24IW ocbvN3mDYya3Fpx17iz417 iF0wvMTxKJU6GODfXXVszB SrTSLwFQW6FMOolDNpS9li DDQpTM4qnlcxGRdqVEgaVS VjkUI0NHNsqZRoO1YlWGKe WSqtSHTceip7NhKfOz5jrK XamPakBKfbd0xca1czzQSr Nuo7QQNiKcVbAagaXVojp0 Dqw6rlTNMusp5gJBG1nJFo zTrsf3X7mWNhOTKivRBeZF UqEU7jsNVrJXBbqV5edaow XHBnYnJkcmhlYWRccGdicm CpUu7rzAjmMFN6EKxmR8oe nM6cIkK5YKjtW0wxqO4aSV p8TAzlLJWovHT2tdX4HEBp nDUgO7WvbP4bAZAwLA3ask c0r7pdZBL0YClmHJZiWuJ7 meH6MPSnlPAbBPZlfBucKV sex476ZAV8KbHiPBNsv5Wj Z2KxeNmtD06beLgkP68kCX SgjItajD6csWzjwN3vWvYs KdBvFNidvNisWA0xDHRnH7 akdTVrBZEkULZvN4uhAtSa mQ5njJibFGbqkpVgAGNnAg u4RIQdkOWvKUNiHna0JEKn QAKnI97xdyloXTH9wP6yg4 wxm2CtZDwgTBP6OAMth10y LNigviD1KIalBz4jSlTsVG I6XYmiGQI9iB== COMMENT (test code = f1nczGPdHCNiiMUaSyGhAD 3359) TrORVni2adOIOlgKCgBmIp MzNcZnRuYmpcdWMxXGRlZm Ise0nic739sEJzd8poEVJr MkN0cEMwNVTrpLCpW626l8 uat4mxafAccKY9QESrXOE7 NEvergBfdnS5XNnmjIAgDc K3CRhpyiQvUYvenfTnvvIn Pxb6IQQvE195ZPS0mBurb2 pnWIR1SZHzVMGzStRqAs2a iKLvR507GUYcOYGSCINybX x4JOAaorEihzLraQEQk701 U179v7onGBAbajQshKjAmb enu2iwD753NPRxkRJdrpGq TyReEXLaeOQvxAX4MIIbAU 1evygrEkXsFG0hepdpCdHi DZ4edco6MtTsQI7zrhpxYy NhJFruUBLuutlbFJNrq1Ok vffxCC1jV4Qqh0R7rH8iiI UxKKKjaEOvDwZvBKNdim0d aRLaZRskw1FrCSV3bxC4xZ PryXHjGJVxBL86Rlvkl3Lk YlrjTFU5YVEtehBcg2Bmh2 yyLkGdplByJ8vfL1LaHSCx MIRjDFOjSyAfmaXho6Vwn6 OlsCQukGi8m5jcJIRlJGMa hPbpb7kmCKF4UVIgP5B8rD Hpz1btQAetBRAmtWL8gjki OTgiOZCtxhY0hgxbEZqzXJ SatMG8qftyKRkoYMCxJnY4 ujowGMwqERRqQSJ3BQszg6 22XSL5MHurAfmtVVfeEIHp bmNvbnRccGduZGVjXHBsYW luXHBsYWluXGYwXGZzMjRc qPrseAkdaB4rGdMvDjVxOX yyHW6cPQAbG4irwXPvWBMm WMGiH5abNfTjuA6tvKtmMO vzmtStTQPcnC5cC7ThVHWh ckVqkRB9aZ9vEWdphOlei7 Ogk2twS2tppONkykQnc92p HX2cESNrIFXihj4= CPT Code(s) (test code x8fbhDAkGJGixOMwSdNbMW = 3357) PoWLRam6gjFXSkdSNzNwXz MzNcZnRuYmpcdWMxXGRlZm Ecz0cso777lACnn4kfHYMd JzB5cFCxJLNspRIjF294j6 bwn3rmnoBrbWI2QZKhPYX4 MGdinjVqylN3RJxckXVqFg T8VUbhrlRlMZokyyXlnjGz Bii8WHFaR319IPD5bQpva8 kjECX6KVOcTXGxQsTkMy0g yLJrO138AXXjJGCIORNgaB s2PVMigsBfqqNdnNRQb503 R744a8gcZFCiraUosRvIlk ulc8arD965DGGviZNjkkDp YkUnNLMqsCMcrGI3VXFzDH 7tlwcrOfEwGM6cpmwwPaLh GH4tril0OsIeGS1ueglpUr CkZCnhNMKfpgarHRNuy5Sx cgnrHQ7aL1Jgq8W9fL0fqT JuGLMqfRMnGtRrYCErcw9j eDJiGIzft7CtGLZ9sqJ7aE NdpJZvTVRnYK70Kupfe0Da ManqMCT9FNTskkVrs2Jsz7 wsIiTphmJgP2coR3YrDPKh XXUqRCNlAuPdocEzj8Mku6 XyaUHecIz5s3ioBHWbNVVw pBmbv4sxMZU8CYBmN2L8aF Wwd3thITkqNPFpgYJ8oiml VPmbFBLliwG1vknaLFfcHT BzmHE1kivyEQlgUQInHvK9 ckxxDTtpAYFwHYX5NVahf8 08MJY6WWkyOymyKGaxDLBt bmNvbnRccGduZGVjXHBsYW luXHBsYWluXGYwXGZzMjRc sKklnGhjkE2uMlTlEsLtLF ygYF1uDVBjF8fngRIdBNIh YNObY1ryOlGjeY9eiRraBK zyjdMdKUa3OjK1EIT8VDIo SDlhIPubZRGjOGM6QFHdor 0= CLINICAL HISTORY (test f0bnyDWoIQUbpMRzJcYwAT code = 3351) SxZVPzo3qdWFUktFMcElWi MzNcZnRuYmpcdWMxXGRlZm Tox1evl543lULpf2scQSEj WaB0bBDcKYSinEUqX159o6 gpo9qsmaUdpEJ9WVXqSMK3 SDenyfDhajZ5SVzisTQzNf P1COmiomDqPDaqndJhufKo Fyd5RDVuG785NNB8sWyyb2 zbXNB3EYPzISIuMeYlGc5q mRObH824JRGnTFEEIDOdpI z2JPEtghQcbfOrsODUt591 J849l6mpCCVwlpKkmFeFqm izn2blD871CNPhsARiciUb RzGbCQAbbFBdkAF7EDGhUL 9lbogbJvQqST6rkzcmDqMw FB3iaxu8JzJmKN2lkxljOu IqNYslNDAgyxgzSOVbt5Jt ckxtGJ9lR7Yvk2W1yU9vlS NkOICazNNfDiMcBQCnem5r wQYeSIbrl1AeRXG7cmS3kU AoaHBqBHRdWP38Erdgn9Uc PpefFFH4PJLblxMdy8Qoj0 fmDwUavrKuG9pjW7AzKACr ZYQpQPHtBvJhvbWjm2Gcv0 SaqMPuyOv1r8kuGUWxQARv mRrfl7tjGHT9DIUgT8K4lF Jhn1hxMVluYPUtfOY6trci CXncCAMhseI4rcoxFEabGS EfeIU8ndxnCGplAYWdGmD2 fzmpETsjXIErJVW3GMotd8 32QDB2TBhyKgefAProDBNz bmNvbnRccGduZGVjXHBsYW luXHBsYWluXGYwXGZzMjRc wNilaIzmvI1lQqMjAgVmEA ssPG6lQQMqC0nxzCAoTBRk BLNbL9bnHlPrvU8cwKdtBN ijvmCmMHNgeIkqwfeoH4Ah J8ZdbVNoj4Wnq0OrGDUhy2 e7KLZ1uDKjBU5sr6PufOV4 wA3pMtzbWCG4 SPECIMEN SOURCE (test f7zozMZpKVMzrIZcGyZvTK code = 3377) HtJGHbv2goVQLmmOUcWoWh MzNcZnRuYmpcdWMxXGRlZm Fdz5khr295nSQsj0zuOTOw XoL1xZRlXRRifSBbB241q5 bqr9djluXkuCF8LKHmMUJ6 HRaxxaHkbjA4APghbOGgUb Z0XUfgqpOfXXabuhVnttBe Jyf6YIHgH233OFG9zJfmm3 klMTO9YCWmKGFfSaBpPd3a cMRmS770FRFiMSPZSFNogH n4NUAmkjRzajAksUHVw421 F340b3lnUEXoiiDqcUaKei vag3bfS321TSCosVWnxxSj GfBpJWPbeTRtpRD0GVUfKP 0nztwcYpWkQP9vekjlLyQj JA8jqvb7JmFjTG7shqmoIq GoJQxsLETataocXLCkn5Ee zwcdIZ6fJ5Smz6A2hC3nyC ZzTPApiRAuKsUqMOUpug8j eDYaWIaqu0CoYRI1rcF4qK LhoKTnDDSoLE07Vlpmm7Bg HvxlTVP2DODywqUno1Rer7 ipXiCjvxDhO6umD9HpIFAf OCLnLXExPgTvhuTzd4Dpe1 XwtMOoyEf6n4xdDNVlNGRi fUkqz4biLDQ8TJZcU7X9gU Psk8icDIbbAVCywIB0amdb VLvpPODlykB8fwzgTLnlKY OegMM0xavlSVovQLUzWcZ3 kpamVFloLEUgLMO7JWgzs2 34STS5XUenJsptQHfdQRHq bmNvbnRccGduZGVjXHBsYW luXHBsYWluXGYwXGZzMjRc aDlhjJogfS0pRhWfLlYtTT ypGL1wDPYwM6jzyBViZBUh DQGpO8awBtLjxY4jmEtqHZ xmczIwIEEuIExpdmVyIGJp e6XllDisGIKbWf1uX3ApaV JsYWRkZXIgXHBhcn0= GROSS DESCRIPTION (test s4nzmOObIYTdeRNvPaSnOM code = 3366) IsGUTfj8lcJZYzkKWyGaOl MzNcZnRuYmpcdWMxXGRlZm Tfx4veh306gCYuk9bvBHLj NvM9kTKuCMHdgCFaP929e6 dgw6clbyJpaZD5XVBfJJM8 HBfzegErmaB5MGkqtXCmHn X3MYyoeyNbOCwlxpTgpmNu Ced2RGCuS232GBU9lWfda8 liITT5CNUuVQLwXjCyRc0m nYOsZ460QRZtZYADOMQqaP k6KELvllMmzqZooERGz804 M110x6idDASrliRndTqNmy glc7clX748RMGdkYWkjoBc VxBsJUDleVUgiRB6NQArRH 8uxeuaVjAmDJ5bzxjaXiDx EB6ryiu1GuKwWJ0ygfteMr BmGKweNXZigghmLHUqe7Sk qtgyGK4sD9Uov4O9tB3meY JhDEVelXAxWfFtHQIrnk9x kLNxFPtpc1OgXLL6jsH9hV IpmGRyBSHsXD50Uinbl7Il OewdKCP9CWUvipLtt7Eru7 ntZhXqfdCaU4flV6MeYEJk HSBpCMAhDyHlqhTjo6Lmb6 AucVKmaDk0a9iiILFmFXFw bZcoi4qaDLY5BZSaY1Z5sY Dse2ghNUgbVZBhxGR0orve NVlbHOCpmvA2arrjBPxcTK UvyYS0mamkBAesVDUhGoY9 uzkkTHfmICBbLHO4WEter0 18RYN9ZUbuXfsvQWgcNXLz bmNvbnRccGduZGVjXHBsYW luXHBsYWluXGYwXGZzMjRc gAlcnTvzfK1rGhTpHnWvQC lbLQ4mBYHdJ6qtwOOcXSFn WVPqK9glMlHlbU4tuKevZB ktxcXdYBIhFRIeP7IllbYk TAkkCMXtub5bzNinJHqfQt KxOHQqw1q5xYM9yQXlzYU6 sDWtqLfqOV7imPPvQQGgR8 Zeh7riszNltB2eRJCpOB7m JTEfyPJslaGzuU2pl4vkHZ bgCUJlXX09HBRnMPnsUOcv rqw0bFC6LBLyVMHjlAVwxt UgtFEdFLKmsqE1NK5tjSZo zW14CDUgBuMdxNmpk5JgZJ NvcmUsIHdoaWNoIGlzIGZp bHRlcmVkIGFuZCBzdWJtaX Y2KFPrfC7sbK55daOkqqKU WI2kXVVfrpbySCPmWy8hFt JzYLo1GKRuyI0tJp6ohTNl kD0gsPGcIHhpYNR6nUKqRY MzOUUdFLQuBG40A2WynuZj DBgqOBVrYRMcfH7wBD64yW JlciBhbmQgImdhbGxibGFk UGYaKzWjcfRwXIUzWAP2DC IxINV2RXXeEmDubPHmquMc L2CeJ3FfnQVeLJUqYWByh6 u5eTFnGPFdMmDaxTEbqsFe YT2toLybqZDaAvQsE54toJ 8mPSildNR9UNXiPVM3JCOn SNQrV5sglVwaJHF0N1RhXT MxRHAxTENby0KaiNApW2Rw JC6sqAizcudbe59hc0WmHW FuZCBoeXBlcmVtaWMuIFRo DUIgyGRzaK1gxwJsddMlvE CnWFBacP2oqvZ8OBThVCWu cHJveGltYXRlbHkgMiBtTC BvZiBncmVlbiBiaWxlIGFu CQXjCMRxOCK3SJZvAVU8JY NeYaYghMSvW4nxQRzmzGCq h8KnpZOujB43YWHmg4GrcV U8TKPoS5XhV6UtsY8jVXjc xnJdRBLmDE4oORYlyAB6pY uumK1iZ6AiTOxzcWhfdxY7 lOHcV1sluCsfFKE5S8WiNY AjGGJuaPAxq6OxsAHigYOb IBJgazhkKFQkGOAbT8OeAH RlZCBhbmQgZGlzcGxheXMg YKUxe4ErkrX5BRYtrJ14gg Yvr5JkcHTlcU66TTM8pNJk aXwwXu5tYJnhMGtckYayfX Yig6RpLNRiEZ6hZJYvSVQm aWNrLiBSZXByZXNlbnRhdG l8YJAvHGO8qJ9fxrChghJp g7WaqNb2eOSpSRsqTAOdTJ CfNJL7nZZoNDDhJIClshvj VXHsxAM5dVGlLZLbjNDcBV LepV9rsI8aRqRhIZFFZ2N9 IFxwYXJ9 MICROSCOPIC DESCRIPTION f7ujvPKsEVDiqVZoGzIkUW (test code = 3371) WnTJAlf8kbSYNxqMWzLjRe MzNcZnRuYmpcdWMxXGRlZm Xli0tii971vTXoj3gvWHDa ErT1hHBeNCLvgTOtJ314v4 azb8avtcMakRZ8UVJjDJB3 CFnezdYvyzX0ZYdtqESgAk I4SCdfxpLiKVqbneMkcwSq Gbc4PZUeS180UIT7jGcxa7 wnKFJ6UQXpKPPkDlGgRj9x yKFlT958XGFcQPUOAPHukT w2HNMdevSfopDcjCCMl970 W156a6qqUMTbgrKqoSlXjh alz0rcK051AKNxkAHesxRm HxSbXFGtcLVdnTC1MPHwGU 8vmjwjHuMwQX1twmlaNqDw ET3xujn9SvFhSV5lzbyhKe KjIPmaOGDdotnrWKTme5Kb vypxXW3hS5Sxj4A3iV7erZ PqMSSmwAHyDeRzSRTfqn7c rZSpDKhaw8RoBQN7kzD8lE YbpULiDDRqPG80Jbces5We FkvyHBR8CRNbwtHqk0Boe5 ecPcAbkaRwW0yhV9MpALCi VCYyDICpEmKneiQqf7Bgz8 ZbqAYvfKh4u0wjYEBhHIUj gQaor4gcDBP5MFShL1V3xW Qyy0imPQzlKOVjzMN5pgvw XFsxAEVodsA4nslfLRphGX MihLK3slceHUjwACYzWzG7 qssxGXoeXVRhXGW3FIuuv1 97FSU9VNfcVaknIKuhYDPf bmNvbnRccGduZGVjXHBsYW luXHBsYWluXGYwXGZzMjRc qTlsqJttqJ9fBgKiEzPbJC pwPG2yGBEoP0xolVEfWDJk AJKeD9fvTvLqyV8cxZddJV dveeAlLUCcvzJyds1vBA7g cGFyfQ== SPECIAL STUDIES (test s4ylrJCjVZGrcFSfZgDkRU code = 3376) LwXYKtq8ubHLGihUQnCsOj MzNcZnRuYmpcdWMxXGRlZm Pzh9sgi775sCPrp9rtOPFw KdF9tYFgCOOikEDnB645XN QmGSqyp5bsq5WkVXRdeOJc s4N9IXESFBufIeClA349MK XsVKbio4fxx0AtHEKrnFOn d0I6QMZFlfkjoQe0oNcwI1 5hz3U7ArqtL0gmLKMrBYXp L6HrNC4iFYNlHsr7MRS1ZT E4ZPBnZRVdD7OuHQ9wWPIw bDWlQYw5a8jsxMteKPEsSV S7b7seDEvgrhB1JY4uyx3v iXz1m9naadXoYNZqWBQxlV WUZSWyN7FvvOjkDw2tzYc0 k2zeCfxaxlP1yKHxTuTiMv MyMFxsaTBccmkwIENvUGF0 jSOGKZy3I016a6dtOVCwns LdhTeEwjotl2hpB847SXXi cGVydzEyMjQwXHBhcGVyaD Q1JUTpAK2wzjjkNqRaTJ3p ffgsYuBoSR9ywab6ErBuCJ 1hcmdiNzIwXGhlYWRlcnkw ZGHlg3HojjcbLQ1oZ6Pwa8 T7sR2csYRmZOZwhZJvKnFh AABdcp6ihRYgPTbnWJB8VR NufsMms5Ypo1bmDyCcsnTg S9djB1XgEUDzZECgYPTdXn LrcwTjf1Zzw5LibXVoqFh4 x8ooLXIxBZIopVfrm8cqPL T7JWMdQ3G4nTApf0niNQbn PLQsvJM9qvxqQSnnYVPddz D3rqyrWEiuRHBccXU8xhpo UFezTUQyIdK0upakURnzHD QwFBW3YRfgf793GJS7VIxi YmtwYWdlXHBnbmNvbnRccG duZGVjXHBsYWluXHBsYWlu XGYwXGZzMjRccWxccGxhaW 1uUgOyVzIdJdtcHM6dDPKh Y2ddcNHmIVCzUZFbO8ctWn IelW9bnEijRPhcSaAuNqJl FfXYyBCeuS25KJSwnmY1DK All77ao2YmlKvguiBzZKMj MZynR3p5EYRcFVPaPKQ1d1 Vlc0OrgM2gkB3qkRjlpV7v yIOwqZP2gftoe2Mnm5WqS9 jhlCQccLZkyfGsl77tIeos D8laWI7iuAXuZQOoxJIitg 9xIA2pvn7kg2aalmoaoOFv vsUjAsjyww9unLJmTFCogp BvPDPzT7DixR7yOB0brg0b nQZ6sxXdJDO1bZQuGLAzBB luXGYxXGZzMjJcbGFuZzEw MzNcaGljaFxmMVxkYmNoXG EsYYhsZ6otDyUeY6NbJUNf SwFnzRJlF9ibuBIrIUXbOK luXGYxXGZzMjJcbGFuZzEw MzNcaGljaFxmMVxkYmNoXG MhHWqeA6rtJyZkQ2FfIQDl AmAgCQRibl0aWKtycTy3LM oxUEGjPIIUBQLgOD5aJSTg pq0wrKDfWAxxmCKjF7YksL JuXAZsAZYge6ZtnUAjyZSq XHBsYWluXGYxXGZzMjJcbG FuZzEwMzNcaGljaFxmMVxk ArCaOFAnRVroW1hhFbTbG0 SuSVIiWjUxrZCfW8oznLKv XHBsYWluXGYxXGZzMjJcbG FuZzEwMzNcaGljaFxmMVxk WcXnXZOaYShsO1cqVcXlL5 KkYPThWzXiJ45rgIByhFEN oMicKILuXGcpxCxxPOI3XD CYph8aa9AiWNQbqh66hvAw d0FooYq1UZAus639ct4jxz P6LVWdXVB3PNu2ZXXyJBTv tW5wAoX7wOTqUXBoVEL5CP R8KWBoy9P4BO9qMFNcYEQo ASUqjpMyb1zor7rbUUYuQT S0fyEvqA4eT5TxHGLmy0Hw dGhlIHBhdGllbnRzIHNhbX ZsWPAcvT30JJYweFHuzZFm WIYgGMQ8JCcbzU1uRiFWnn Tpee0yaQBov6GzmJx7CMBm kiPgjnXaYHKcmlVlM24crR IfrQVhd9cbkdLzecWtvOPe tZKkNZOfHZU6YRo5SVTlFT xwbGFpblxmMVxmczIyXGxh ntjtDOTlAOobF1ooYtUwNQ IeyTwiDSrim2InXANrIRBf FoknwdDsFQd7lsQgVAGhye xwbGFpblxmMVxmczIyXGxh hcyoEADdXRdpQ8uiHvIhYO CmyOvlVIioe6UgKCBnHFLi WjzgjyDhGDIgeMpyuN0dMr TbXdNwEizpGQ2wLSTeV4by mRIhWETmLFDsO6xdUeSzhK 9jaFxmMVxjZjJcZnMyMlxs bISjkGepXZPgnKnmsR3tUc OjNaPzTwreHY8gPNVxO5tb cCSsIJUaSWKhB0odWvBtcR 9jaFxmMVxjZjJcZnMyMiBJ wK52fw0frAN4v7UvDC6de6 VivHB8KZJehnmgVZiqyWNf wYggEkL7GMIayCQeXl1klQ HhIFY2ABUqkOwahxLHnM1v THVrZVxwbGFpblxmMVxmcz UgONaumxciBCDmPNzyI3bs CaAiVTAiyLyiCBjir2RtZU XtOMOmEziuwzVrVEI1EhY7 SYzmAZQatQuubP8sHdGqJw PpRdmiLC4tNQPcI4hdjEOs NYWsRPZyU6ikJxXlqW3yzU shLRrgNnBuIfWcOlPkXM3z PCqoHAmkA0MjdBOvWCZETC Yel4xkR1vlXOXlg3KrpM2o gLC5eVIpUHFgxLH3PTEoBP A5XXzotQRkGSFgTWAagWXb rHEmHy3kgYPqO3JqF5vexl CbjSDhwYY0uDTtDNtdgcXo OYB8IWUjjX9eBH6vRAXrlC SuJC3ovIRqTGZsONHgPHPi VHVzg1AiCKHibp62CMTlRr lxwJkoZORmNs0qSo1vXNYs ekNrCUP0ZmCBAM2vaeclgZ WjwHtpqi4oVFnlXNXQJLGv WHVbPCK3EUNnqV1hZDK6eV V4BQY1B1kuO7csIRAhniFg FD0zUZAvpTJdanEdKDlkQE 2jbAGbYQKot9VdshydAHOr LHC9LNV4HTaoWWGfNAErKe 9uSTLodC4tF6ZaCRJ0vlSs j6KwFkCOaXXpbU84pSHcmb 82ANZhKNJfB3GxBOTiJFBu JToyawKsgJkeGGWrc28dgI UrewQtr6TwauNhVGIpE8cm LDLogSYxeNAdm9FouF3rtR OajoEiNJA0gRDgSWDceW3q BASwrZpdLOGmlZ9sE6YbIJ zeFh0qOSUkcnusZZ5zlm55 ME2nliYnPY2boqHcOJ89op VuInHvOBl7GVkNLZdRJJg3 KSBhcyBxdWFsaWZpZWQgdG 7avBGySg4qaPOcuWtnGJCz iBEkWWrhzSbjX2lyjfnhGG xqcUAvg4UqwU0pgQO5KVP5 vX6iOizkaXCfiqfxRmblyk QcZOatpgekEPQkHDezB8ok EtFwRNZpqHzaBdheh5CdHF YyXGZzMjJccGFyXHBhcmRc eAtwaT4gKmIhTnRhTHjiaY HenxrkSjxsiuG0UYNzdy8= Gross assessment was [facility] performed at ([facility], = 2777) Department of Pathology, [address] [place] [address], Technical component was [facility] performed at ([facility], = 2778) Department of Pathology, [address] [place] [address], Professional component [facility] was performed at ([facility], code = 2779) Department of Pathology, [address] [place] [address], [facility] AngelesTISSUE [id number] 17:32:00Surgical Pathology Report Case: [id number] Authorizing Provider: Shimon Logan MD Collected: 07/09/2019 1729 Ordering Location: [address] Received: 07/10/2019 0902 Service Pathologist: Babak Hermosillo MD Specimens: A) - Biopsy, Liver B) -Gallbladder A. LIVER BIOPSY- PORTAL TRACTS WITH MILD CHRONIC INFLAMMATION- NO SIGNIFICANT STEATOSIS SEEN- NO LOBULAR INFLAMMATION OR BALLOONING DEGENERATION SEEN- NO SIGNIFICANT FIBROSIS SEEN- NO STAINABLE IRON - SEE COMMENTB. GALLBLADDER, CHOLECYSTECTOMY- CHRONIC CHOLECYSTITIS- CHOLELITHIASIS Signing PathologistDirect Phone Line: [phone] signed by Babak Hermosillo MD on 07/11/2019 at 5:32 PMClinical correlation with serology is recommended.87841, 70726, 58034 X 4Biliary calculus of other site with obstruction.A. Liver biopsyB. Gallbladder A. Received in formalin labeled with the patient's name, accession number and "liver biopsy" is a 1.4 cm in length x 0.1 cm in diameter amos-yellow soft tissue core, which is filtered and submitted in toto in A1. B. Received in formalin labeled with the patient's name, accession number and "gallbladder" is a 6.5 x 2.4 x 1.3 cm intact gallbladder with a 0.2 cm in length x 0.3 cm in diameter attached cystic duct. The serosa is green-pink, smooth and hyperemic. The specimen is opened to reveal approximately 2 mL of green bile and a 1.0 x 0.4 x 0.3 cm aggregate of yellow bosselated calculi. There are no calculi lodged within the cystic duct. The mucosa istan-pink, trabeculated and displays a moderate amount of yellow stippling. The wall measures 0.3 cm thick. Mounter sections are submitted in B1-B2, with the inked cystic duct margin in B1. PA/ewPerformed.The interpretation of this case included the use of immunohistochemistry or special stainson block A.Trichrome- no significant fibrosis reticulin- normal sjysjhiqttCepy-sdymgyebQFT-F- no abnormal intracellular depositsControl Slides Examined: In-house known positive controls were evaluatedalong with the test tissue. These control slides run alongside of the patients sample show appropriate staining. Internal positive and negative controls when available are evaluated Immunohistochemistry technical testing was performed at [facility], Pathology Laboratory where itwas developed and its performance characteristics were determined. It has not been cleared or approved by the U.S. Food and Drug Administration. The FDA has determined that such clearance or approval is not necessary. The test is used for clinical purposes. It should not be regarded as investigationalor for research. This laboratory is certified under the Clinical Laboratory Improvement Amendments of 1988 (CLIA-88) as qualified to perform high complexity clinical laboratory testing.[facility], Department of Pathology, [address] [place] [address], [facility], [address] [place] [address], [facility], [facility], [address] [place] [address], [id number] 14:08:00 Test Item Value Reference Range Interpretation Comments Ceruloplasmin (test 40 mg/dL 18-53 Adults: code = 8842924) Males: 1 8-36 mg/dL Females: 18-53 mg/dL Pediatrics: Males (mg/dL) Females (mg/dL)-------- - -- 0-30 Days 8-25 3-28 31 Days-11 Month 15-48 15-43 1-3 Years 25-56 29-54 4-6 Year s 29-5 6 26-5 4 7-9 Years 25-52 23-48 10-12 Years 21-51 21-48 13-1 5 Years 20-50 21-46 16-18 Years 20-45 22-50 The pediatric range s are derived fro m the following criteria: Rossy SJ, Agnieszka FAN, Viki J et al Pediatric reference range s for Csom-6-Nbsuqzae b ulin and ceruloplasmin. Clin. Chem 1997 ; 43:S1999 Pediatric Reference Ranges, 2nd., S F Rossyet al. editors. [employer], [place], [place] 1997. MCKAYLA (test code = Performing Lab MCKAYLA) *[facility] [facility], [address] [place] [phone] Cami Ewing MD, PhD [facility] AngelesMitochondrial Ab [id number] 11:51:00 Test Item Value Reference Range Interpretation Comments Anti-Mitocho NEGATIVE NEGATIVE This test was developed nd Abs (test and its analyti na code = performance 1472108) characteristics havebeen determined by [facility].It h as not been cleared or approved by FDA. This as say has been validatedp ursuant to the CLIA reg ulations and is used for clinical purposes. MCKAYLA (test Performing Lab code = MCKAYLA) [facility] [employer] [facility] [address] [place] [address] Debbei Taylor MD, PhD, VIKKI [facility] AngelesMitochondrial Ab [id number] 11:51:00 Test Item Value Reference Range Interpretation Comments Mitochondrial Ab TNP <1:20 Test Not Titer (test code = Performed . 3360373) Screening test Negative or Not Detected. Titer notperformed. MCKAYLA (test code = Performing Lab MCKAYLA) [facility] [employer] [facility] [address] [place] [address] Debbie Taylor MD, PhD, VIKKI [facility] AngelesBasic metabolic [id number] 05:21:00 Test Item Value Reference Range Interpretation Comments Sodium (test code = 136 meq/L 552-561 6358-2) Potassium (test code = 4.0 meq/L 3.5-5.1 2823-3) Chloride (test code = 104 meq/L 98-107 2075-0) CO2 (test code = 24 meq/L 22-29 2028-9) BUN (test code = 5 mg/dL 7-21 L 3094-0) Creatinine (test code 0.69 mg/dL 0.57-1.25 = 2160-0) Glucose (test code = 114 mg/dL 70-105 H 2345-7) Calcium (test code = 8.7 mg/dL 8.4-10.2 73208-0) EGFR (test code = 120 mL/min/1.73 [place] [address]-4) NOT ACCURATE CREATININE CLEARANCE IN PREDICTING GLOMERULAR FILTRATION RATE . ESTIMATED GFR I S NOT APPLICABLE FOR DIALYSIS PATIENTS. MCKAYLA (test code = MCKAYLA) D[employer] ID - JACOBY Guerrero Lab Interpretation Abnormal (test code = 80713-8) [facility] AngelesHepatic function [id number] 05:21:00 Test Item Value Reference Range Interpretation Comments Protein, Total (test code 6.9 6.0- 8.3 gm/dL = 2885-2) Albumin (test code = 3.7 g/dL 3.5-5 69936-8) Total Bilirubin (test code 0.6 mg/dL 0.2-1.2 = 1974-2) Bilirubin, Direct (test 0.3 mg/dL 0.1-0.5 code = 1967-7) Alkaline Phosphatase (test 195 U/L 40-150 H code = 6768-6) AST (test code = 1920-8) 109 U/L 5-34 H ALT (test code = 1742-6) 314 U/L 6-55 H MCKAYLA (test code = MCKAYLA) Dinner Cook ID - JACOBY M Lab Interpretation (test Abnormal code = 39731-7) [facility] AngelesHEPATIC FUNCTION [id number] 05:21:00 Test Item Value Reference Range Interpretation Comments TOTAL PROTEIN (BEAKER) (test code = 6.9 gm/dL 6.0-8.3 770) ALBUMIN (BEAKER) (test code = 1145) 3.7 g/dL 3.5-5.0 BILIRUBIN TOTAL (BEAKER) (test code 0.6 mg/dL 0.2-1.2 = 377) BILIRUBIN DIRECT (BEAKER) (test 0.3 mg/dL 0.1-0.5 code = 706) ALKALINE PHOSPHATASE (BEAKER) (test 195 U/L 40-150 H code = 346) AST (SGOT) (BEAKER) (test code = 109 U/L 5-34 H 353) ALT (SGPT) (BEAKER) (test code = 314 U/L 6-55 H 347) Dinner Cook ID - JACOBY MBASIC METABOLIC [id number] 05:21:00 Test Item Value Reference Range Interpretation Comments SODIUM (BEAKER) 136 meq/L 136-145 (test code = 381) POTASSIUM (BEAKER) 4.0 meq/L 3.5-5.1 (test code = 379) CHLORIDE (BEAKER) 104 meq/L 98-107 (test code = 382) CO2 (BEAKER) (test 24 meq/L 22-29 code = 355) BLOOD UREA NITROGEN 5 mg/dL 7-21 L (BEAKER) (test code = 354) CREATININE (BEAKER) 0.69 mg/dL 0.57-1.25 (test code = 358) GLUCOSE RANDOM 114 mg/dL 70-105 H (BEAKER) (test code = 652) CALCIUM (BEAKER) 8.7 mg/dL 8.4-10.2 (test code = 697) EGFR (BEAKER) (test 120 mL/min/1.73 ESTIM ATED GFR IS code = 1092) sq m NOT ACCURATE CREATININE CLEARANCE IN PREDICTING GLOMERULAR FILTRATION RATE . ESTIMATED GFR I S NOT APPLICABLE FOR DIALYSIS PATIEN TS. Dinner Cook ID - JACOBY MCBC with platelet count + automated [id number] 04:52:00 Test Item Value Reference Range Interpretation Comments WBC (test code = 6690-2) 10.1 3.5- 10.5 K/L RBC (test code = 789-8) 4.43 3.93- 5.22 M/L MCHC (test code = 786-4) 31.2 32.2- 35.5 GM/DL L Hematocrit (test code = 4544-3) 34.6 % 34.1-44.9 MCV (test code = 787-2) 78.1 fL 79.4-94.8 L MCH (test code = 785-6) 24.4 pg 25.6-32.2 L RDW (test code = 788-0) 16.6 % 11.7-14.4 H Platelets (test code = 777-3) 286 150- 450 K/CU MM MPV (test code = 29956-1) 11.6 fL 9.4-12.3 nRBC (test code = 413) 0 0- 0 /100 WBC % Neutros (test code = 429) 86 % % Lymphs (test code = 430) 9 % % Monos (test code = 431) 5 % % Eos (test code = 432) 0 % % Baso (test code = 437) 0 % # Neutros (test code = 670) 8.67 1.56- 6.13 K/L H # Lymphs (test code = 414) 0.92 1.18- 3.74 K/L L # Monos (test code = 415) 0.50 0.24- 0.36 K/L H # Eos (test code = 416) 0.00 0.04- 0.36 K/L L # Baso (test code = 417) 0.01 0.01- 0.08 K/L Immature Granulocytes-Relative 0 % 0-1 (test code = 2801) Lab Interpretation (test code = Abnormal 76582-1) [facility] W/PLT COUNT & AUTO [id number] 04:52:00 Test Item Value Reference Range Interpretation Comments WHITE BLOOD CELL COUNT (BEAKER) 10.1 K/ L 3.5-10.5 (test code = 775) RED BLOOD CELL COUNT (BEAKER) 4.43 M/ L 3.93-5.22 (test code = 761) HEMOGLOBIN (BEAKER) (test code = 10.8 GM/DL 11.2-15.7 L 410) HEMATOCRIT (BEAKER) (test code = 34.6 % 34.1-44.9 411) MEAN CORPUSCULAR VOLUME (BEAKER) 78.1 fL 79.4-94.8 L (test code = 753) MEAN CORPUSCULAR HEMOGLOBIN 24.4 pg 25.6-32.2 L (BEAKER) (test code = 751) MEAN CORPUSCULAR HEMOGLOBIN CONC 31.2 GM/DL 32.2-35.5 L (BEAKER) (test code = 752) RED CELL DISTRIBUTION WIDTH 16.6 % 11.7-14.4 H (BEAKER) (test code = 412) PLATELET COUNT (BEAKER) (test 286 K/CU MM 150-450 code = 756) MEAN PLATELET VOLUME (BEAKER) 11.6 fL 9.4-12.3 (test code = 754) NUCLEATED RED BLOOD CELLS 0 /100 WBC 0-0 (BEAKER) (test code = 413) NEUTROPHILS RELATIVE PERCENT 86 % (BEAKER) (test code = 429) LYMPHOCYTES RELATIVE PERCENT 9 % (BEAKER) (test code = 430) MONOCYTES RELATIVE PERCENT 5 % (BEAKER) (test code = 431) EOSINOPHILS RELATIVE PERCENT 0 % (BEAKER) (test code = 432) BASOPHILS RELATIVE PERCENT 0 % (BEAKER) (test code = 437) NEUTROPHILS ABSOLUTE COUNT 8.67 K/ L 1.56-6.13 H (BEAKER) (test code = 670) LYMPHOCYTES ABSOLUTE COUNT 0.92 K/ L 1.18-3.74 L (BEAKER) (test code = 414) MONOCYTES ABSOLUTE COUNT (BEAKER) 0.50 K/ L 0.24-0.36 H (test code = 415) EOSINOPHILS ABSOLUTE COUNT 0.00 K/ L 0.04-0.36 L (BEAKER) (test code = 416) BASOPHILS ABSOLUTE COUNT (BEAKER) 0.01 K/ L 0.01-0.08 (test code = 417) IMMATURE GRANULOCYTES-RELATIVE 0 % 0-1 PERCENT (BEAKER) (test code = 2801) POC-Glucose [id number] 21:29:00 Test Item Value Reference Range Interpretation Comments POC-Glucose Meter (test 99 mg/dL 70-110 : TE STED AT [facility] code = 1538) [address] [facility], 770 30: Dinner Cook/Techni angelita ID = [id number] for LAURE, MALIHA Lab Interpretation (test Normal code = 10821-8) [facility] AngelesPOCT-GLUCOSE [id number] 21:29:00 Test Item Value Reference Range Interpretation Comments POC-GLUCOSE METER 99 mg/dL 70-110 : TESTED A T [facility] 6720 (BEAKER) (test code = [facility], 153) [address]: Dinner Cook/Techni angelita ID = [id number] for LAURE , MALIHA POCT-GLUCOSE [id number] 18:23:00 Test Item Value Reference Range Interpretation Comments POC-GLUCOSE METER 109 mg/dL 70-110 : TESTED A T [facility] 6720 (BEAKER) (test code = [facility], 153) [address]: Dinner Cook/Techni angelita ID = [id number] for HERMAN MAHAN POCT-GLUCOSE [id number] 12:24:00 Test Item Value Reference Range Interpretation Comments POC-GLUCOSE METER 79 mg/dL 70-110 : TESTED A T [facility] 6720 (BEAKER) (test code = [facility], 153) [address]: Dinner Cook/Techni angelita ID = [id number] for PREM YEE POCT-GLUCOSE [id number] 10:15:00 Test Item Value Reference Range Interpretation Comments POC-GLUCOSE METER 84 mg/dL 70-110 : TESTED A T [facility] 6720 (BEAKER) (test code = [facility], 153) [address]97[address]: Dinner Cook/Techni angelita ID = [id number] for FOUZIA FLOWER [id number] 07:13:00 Test Item Value Reference Range Interpretation Comments Lipase (test code = 11 U/L 3040-3) MCKAYLA (test code = MCKAYLA) Dinner Cook ID - DAINA F Lab Interpretation (test Normal code = 91066-8) [facility] AngelesLIPASE2020-03-16 07:13:00 Test Item Value Reference Range Interpretation Comments LIPASE (BEAKER) (test code = 749) 11 U/L Dinner Cook ID - DAINA FHEPATIC FUNCTION [id number] 05:52:00 Test Item Value Reference Range Interpretation Comments TOTAL PROTEIN (BEAKER) (test code = 6.6 gm/dL 6.0-8.3 770) ALBUMIN (BEAKER) (test code = 1145) 3.7 g/dL 3.5-5.0 BILIRUBIN TOTAL (BEAKER) (test code 0.7 mg/dL 0.2-1.2 = 377) BILIRUBIN DIRECT (BEAKER) (test 0.4 mg/dL 0.1-0.5 code = 706) ALKALINE PHOSPHATASE (BEAKER) (test 193 U/L 40-150 H code = 346) AST (SGOT) (BEAKER) (test code = 93 U/L 5-34 H 353) ALT (SGPT) (BEAKER) (test code = 388 U/L 6-55 H 347) Dinner Cook ID - JACOBY MBASIC METABOLIC [id number] 05:52:00 Test Item Value Reference Range Interpretation Comments SODIUM (BEAKER) 137 meq/L 136-145 (test code = 381) POTASSIUM (BEAKER) 4.0 meq/L 3.5-5.1 (test code = 379) CHLORIDE (BEAKER) 107 meq/L 98-107 (test code = 382) CO2 (BEAKER) (test 25 meq/L 22-29 code = 355) BLOOD UREA NITROGEN 6 mg/dL 7-21 L (BEAKER) (test code = 354) CREATININE (BEAKER) 0.71 mg/dL 0.57-1.25 (test code = 358) GLUCOSE RANDOM 86 mg/dL 70-105 (BEAKER) (test code = 652) CALCIUM (BEAKER) 8.8 mg/dL 8.4-10.2 (test code = 697) EGFR (BEAKER) (test 116 mL/min/1.73 ESTIM ATED GFR IS code = 1092) sq m NOT ACCURATE CREATININE CLEARANCE IN PREDICTING GLOMERULAR FILTRATION RATE . ESTIMATED GFR I S NOT APPLICABLE FOR DIALYSIS PATIEN TS. Dinner Cook ID - JACOBY [facility]BC W/PLT COUNT & AUTO [id number] 05:16:00 Test Item Value Reference Range Interpretation Comments WHITE BLOOD CELL COUNT (BEAKER) 5.6 K/ L 3.5-10.5 (test code = 775) RED BLOOD CELL COUNT (BEAKER) 4.25 M/ L 3.93-5.22 (test code = 761) HEMOGLOBIN (BEAKER) (test code = 10.1 GM/DL 11.2-15.7 L 410) HEMATOCRIT (BEAKER) (test code = 33.2 % 34.1-44.9 L 411) MEAN CORPUSCULAR VOLUME (BEAKER) 78.1 fL 79.4-94.8 L (test code = 753) MEAN CORPUSCULAR HEMOGLOBIN 23.8 pg 25.6-32.2 L (BEAKER) (test code = 751) MEAN CORPUSCULAR HEMOGLOBIN CONC 30.4 GM/DL 32.2-35.5 L (BEAKER) (test code = 752) RED CELL DISTRIBUTION WIDTH 16.7 % 11.7-14.4 H (BEAKER) (test code = 412) PLATELET COUNT (BEAKER) (test 271 K/CU MM 150-450 code = 756) MEAN PLATELET VOLUME (BEAKER) 11.6 fL 9.4-12.3 (test code = 754) NUCLEATED RED BLOOD CELLS 0 /100 WBC 0-0 (BEAKER) (test code = 413) NEUTROPHILS RELATIVE PERCENT 44 % (BEAKER) (test code = 429) LYMPHOCYTES RELATIVE PERCENT 42 % (BEAKER) (test code = 430) MONOCYTES RELATIVE PERCENT 9 % (BEAKER) (test code = 431) EOSINOPHILS RELATIVE PERCENT 4 % (BEAKER) (test code = 432) BASOPHILS RELATIVE PERCENT 1 % (BEAKER) (test code = 437) NEUTROPHILS ABSOLUTE COUNT 2.47 K/ L 1.56-6.13 (BEAKER) (test code = 670) LYMPHOCYTES ABSOLUTE COUNT 2.34 K/ L 1.18-3.74 (BEAKER) (test code = 414) MONOCYTES ABSOLUTE COUNT (BEAKER) 0.52 K/ L 0.24-0.36 H (test code = 415) EOSINOPHILS ABSOLUTE COUNT 0.25 K/ L 0.04-0.36 (BEAKER) (test code = 416) BASOPHILS ABSOLUTE COUNT (BEAKER) 0.03 K/ L 0.01-0.08 (test code = 417) IMMATURE GRANULOCYTES-RELATIVE 0 % 0-1 PERCENT (BEAKER) (test code = 2801) Prothrombin time/[id number] 05:12:00 Test Item Value Reference Range Interpretation Comments Protime (test code = 13.3 11.9- 14.2 5902-2) seconds INR (test code = 1.0 <=5.9 6301-6) MCKAYLA (test code = MCKAYLA) Effective 09/20/2018: PT Reference Range ChangeNew: 11.9-14.2 Previous: 11.7-14.7 RECOMMENDED COUMADIN/WARFARIN INR THERAPY RANGESSTANDARD DOSE: 2.0-3.0 Includes: PROPHYLAXIS for venous thrombosis, systemic embolization; TREATMENT for venous thrombosis and/or pulmonary embolus.HIGH RISK: Target INR is 2.5-3.5 for patients wiht mechanical heart valves. Lab Interpretation Normal (test code = 87866-3) [facility][id number] 05:12:00 Test Item Value Reference Range Interpretation Comments PROTIME (BEAKER) (test code = 13.3 seconds 11.9-14.2 759) INR (BEAKER) (test code = 370) 1.0 <=5.9 Effective 09/20/2018: PT Reference Range ChangeNew: 11.9-14.2 Previous: 11.7- 14.7RECOMMENDED COUMADIN/WARFARIN INR THERAPY RANGESSTANDARD DOSE: 2.0-3.0 Includes: PROPHYLAXIS for venous thrombosis, systemic embolization; TREATMENT for venous thrombosis and/or pulmonary embolus.HIGH RISK: Target INR is2.5-3.5 for patients wiht mechanical heart valves.POCT-GLUCOSE [id number] 22:53:00 Test Item Value Reference Range Interpretation Comments POC-GLUCOSE METER 106 mg/dL 70-110 : TESTED A T [facility] 67[address] (BEAKER) (test code = QU[place], 1538) [address]: Dinner Cook/Techni angelita ID = [id number] for LAISHA PALENCIA Hemoglobin [id number] 19:49:00 Test Item Value Reference Range Interpretation Comments Hemoglobin A1C (test code = 4548-4) 5.2 % 4.3-6.1 Lab Interpretation (test code = Normal 04427-2) [facility] [id number] 19:49:00 Test Item Value Reference Range Interpretation Comments HEMOGLOBIN A1C (BEAKER) (test code = 5.2 % 4.3-6.1 368) POCT-GLUCOSE [id number] 18:29:00 Test Item Value Reference Range Interpretation Comments POC-GLUCOSE METER 107 mg/dL 70-110 : TESTED A T [facility] 6720 (ALBERTO) (test code = QUITA Russo [facility], 1538) [address]: Dinner Cook/Techni angelita ID = [id number] for ERWIN HARRISON [id number] 15:50:00 Test Item Value Reference Range Interpretation Comments LIPASE (ALBERTO) (test code = 749) 12 U/L 8-78 Dinner Cook ID - BSPOCT-GLUCOSE [id number] 12:24:00 Test Item Value Reference Range Interpretation Comments POC-GLUCOSE METER 85 mg/dL 70-110 : TESTED A T [facility] 6720 (ALBERTO) (test code = QUITA Russo [facility], 1538) [address]802: Dinner Cook/Techni angelita ID = [id number] for ERWIN HARRISON FL, FLUORO, NON-SPECIFIC, UP TO 1 [id number] 10:29:00Reason for exam:->ercpFINAL REPORT A fluoroscopic unit was utilized for a procedure performed in the operating room. No interpretation was requested. Please refer to the operative report regarding findings. Please refer to PACS for patient radiation dose information. Signed: JR Slater Robert MDReport Verified Date/Time: 07/08/2019 10:29:57 Reading Location: [address] Neuro Reading Room [place] fluoro non-specific up to 1 [id number] 10:29:00 Interface, External Ris In - 07/08/2019 10:33 AM CDTFINAL REPORT A fluoroscopic unit was utilized for a procedure performed in the operating room. No interpretation was requested. Please refer to the operative report regarding findings. Please refer to PACS for patient radiationdose information. Signed: JR Slater Robert MDReport Verified Date/Time: 07/08/2019 10:29:57Reading Location: [address] Neuro [facility] [id number] 06:50:00 Test Item Value Reference Range Interpretation Comments POC-GLUCOSE METER 110 mg/dL 70-110 : TESTED Audrey Kumari [facility] 67[address] (ALBERTO) (test code = QU[place], 1538) 67[address]: Dinner Cook/Techni angelita ID = [id number] for MM, MALIHA U/S, ABDOMINAL, [id number] 05:50:00Abdomen limited area? Add comment if clarification is needed.->LiverReason for exam:->elevatedLFTsFINAL REPORT History: Elevated LFTs Abdominal ultrasound dated 09/07/2019 Comparison: None Comment: Real-time transabdominal ultrasound of the right upper quadrant abdomen was performed. The examination is limited by bowel gas. Liver: 14.5 cm , normal. Normal echogenicity. No focal lesions. Gallbladder: Gallbladder sludge. No definite gallstones. There is mild bilateral thickening, measuring 3.5 mm. No perocholecystic fluid.. Sonographic Kelley's sign was elicited. The transverse diameter of the gallbladder lumen is 2.3 cm. Biliary tree: No intrahepatic ductal dilatation. CBD: 5.5 mm. MPV: 8 mm Pancreas: Obscured by bowel gas Right kidney: 11.1 x 6.5 x 7.1 cm. Normal echogenicity. There is a 4.9 cm upper pole parapelvic cyst or focal dilated calyx. Otherwise no hydronephrosis. No ascites is present in the abdomen. The visualized abdominal aorta is normal in caliber. The IVC and Hepatic veins are patent. Impression: Limited examination, as described. Gallbladder sludge but no definite gallstones. There is gallbladder wall thickening and a sonographic Kelley sign was elicited. These findings are nonspecific but in the context of a recently performed hepatobiliary nuclear medicine imaging scan suggest the possibility of chronic cholecystitis. Signed: Yarelis Danielleort Verified Date/Time: 07/08/2019 05:50:43 US abdomen [id number] 05:50:00Interface, External Ris In - 07/08/2019 5:53 AM CDTFINAL REPORT History: Elevated LFTs Abdominal ultrasound dated 09/07/2019 Comparison: None Comment: Real-time transabdominal ultrasound of the right upper quadrant abdomen was performed. The examination is limited by bowel gas. Liver: 14.5 cm , normal. Normal echogenicity. No focal lesions. Gallbladder: Gallbladder sludge. Nodefinite gallstones. There is mild bilateral thickening, measuring 3.5 mm. No perocholecystic fluid.. Sonographic Kelley's sign was elicited. The transverse diameter of the gallbladder lumen is 2.3 cm.Biliary tree: No intrahepatic ductal dilatation. CBD: 5.5 mm. MPV: 8 mm Pancreas: Obscured by bowel gas Right kidney: 11.1 x 6.5 x 7.1 cm. Normal echogenicity. There is a 4.9 cm upper pole parapelvic cyst or focal dilated calyx. Otherwise no hydronephrosis. No ascites is present in the abdomen. The visualized abdominal aorta is normal in caliber. The IVC and Hepatic veins are patent. Impression: Limited examination, as described. Gallbladder sludge but no definite gallstones. There is gallbladder wall thickening and a sonographic Kelley sign was elicited. These findings are nonspecific but in the context of a recently performed hepatobiliary nuclear medicine imaging scan suggest the possibility of chronic cholecystitis. Signed: Yarelis Danielle MDReport Verified Date/Time: 07/08/2019 05:50:43 [facility] [id number] 05:40:00 Test Item Value Reference Range Interpretation Comments TOTAL PROTEIN (BEAKER) (test code = 6.3 gm/dL 6.0-8.3 770) ALBUMIN (BEAKER) (test code = 1145) 3.5 g/dL 3.5-5.0 BILIRUBIN TOTAL (BEAKER) (test code 1.1 mg/dL 0.2-1.2 = 377) BILIRUBIN DIRECT (BEAKER) (test 0.7 mg/dL 0.1-0.5 H code = 706) ALKALINE PHOSPHATASE (BEAKER) (test 203 U/L 40-150 H code = 346) AST (SGOT) (BEAKER) (test code = 193 U/L 5-34 H 353) ALT (SGPT) (BEAKER) (test code = 501 U/L 6-55 H 347) Dinner Cook ID - JACOBY MBASIC METABOLIC [id number] 05:40:00 Test Item Value Reference Range Interpretation Comments SODIUM (BEAKER) 137 meq/L 136-145 (test code = 381) POTASSIUM (BEAKER) 3.5 meq/L 3.5-5.1 (test code = 379) CHLORIDE (BEAKER) 107 meq/L 98-107 (test code = 382) CO2 (BEAKER) (test 23 meq/L 22-29 code = 355) BLOOD UREA NITROGEN 8 mg/dL 7-21 (BEAKER) (test code = 354) CREATININE (BEAKER) 0.73 mg/dL 0.57-1.25 (test code = 358) GLUCOSE RANDOM 99 mg/dL 70-105 (BEAKER) (test code = 652) CALCIUM (BEAKER) 8.5 mg/dL 8.4-10.2 (test code = 697) EGFR (BEAKER) (test 113 mL/min/1.73 ESTIM ATED GFR IS code = 1092) sq m NOT ACCURATE CREATININE CLEARANCE IN PREDICTING GLOMERULAR FILTRATION RATE . ESTIMATED GFR I S NOT APPLICABLE FOR DIALYSIS PATIEN TS. Dinner Cook ID - JACOBY MCBC W/PLT COUNT & AUTO [id number] 05:33:00 Test Item Value Reference Range Interpretation Comments WHITE BLOOD CELL COUNT (BEAKER) 5.0 K/ L 3.5-10.5 (test code = 775) RED BLOOD CELL COUNT (BEAKER) 4.31 M/ L 3.93-5.22 (test code = 761) HEMOGLOBIN (BEAKER) (test code = 10.5 GM/DL 11.2-15.7 L 410) HEMATOCRIT (BEAKER) (test code = 33.9 % 34.1-44.9 L 411) MEAN CORPUSCULAR VOLUME (BEAKER) 78.7 fL 79.4-94.8 L (test code = 753) MEAN CORPUSCULAR HEMOGLOBIN 24.4 pg 25.6-32.2 L (BEAKER) (test code = 751) MEAN CORPUSCULAR HEMOGLOBIN CONC 31.0 GM/DL 32.2-35.5 L (BEAKER) (test code = 752) RED CELL DISTRIBUTION WIDTH 16.5 % 11.7-14.4 H (BEAKER) (test code = 412) PLATELET COUNT (BEAKER) (test 280 K/CU MM 150-450 code = 756) MEAN PLATELET VOLUME (BEAKER) 11.7 fL 9.4-12.3 (test code = 754) NUCLEATED RED BLOOD CELLS 0 /100 WBC 0-0 (BEAKER) (test code = 413) NEUTROPHILS RELATIVE PERCENT 42 % (BEAKER) (test code = 429) LYMPHOCYTES RELATIVE PERCENT 39 % (BEAKER) (test code = 430) MONOCYTES RELATIVE PERCENT 13 % (BEAKER) (test code = 431) EOSINOPHILS RELATIVE PERCENT 6 % (BEAKER) (test code = 432) BASOPHILS RELATIVE PERCENT 0 % (BEAKER) (test code = 437) NEUTROPHILS ABSOLUTE COUNT 2.07 K/ L 1.56-6.13 (BEAKER) (test code = 670) LYMPHOCYTES ABSOLUTE COUNT 1.93 K/ L 1.18-3.74 (BEAKER) (test code = 414) MONOCYTES ABSOLUTE COUNT (BEAKER) 0.64 K/ L 0.24-0.36 H (test code = 415) EOSINOPHILS ABSOLUTE COUNT 0.28 K/ L 0.04-0.36 (BEAKER) (test code = 416) BASOPHILS ABSOLUTE COUNT (BEAKER) 0.02 K/ L 0.01-0.08 (test code = 417) IMMATURE GRANULOCYTES-RELATIVE 0 % 0-1 PERCENT (BEAKER) (test code = 2801) PROTHROMBIN TIME/[id number] 05:26:00 Test Item Value Reference Range Interpretation Comments PROTIME (BEAKER) (test code = 13.5 seconds 11.9-14.2 759) INR (BEAKER) (test code = 370) 1.1 <=5.9 Effective 09/20/2018: PT Reference Range ChangeNew: 11.9-14.2 Previous: 11.7- 14.7RECOMMENDED COUMADIN/WARFARIN INR THERAPY RANGESSTANDARD DOSE: 2.0-3.0 Includes: PROPHYLAXIS for venous thrombosis, systemic embolization; TREATMENT for venous thrombosis and/or pulmonary embolus.HIGH RISK: Target INR is2.5-3.5 for patients wiht mechanical heart valves.[id number] 21:54:00 Test Item Value Reference Range Interpretation Comments A-1 Antitrypsin (test code 133.40 mg/dL 90-200 = 1825-9) MCKAYLA (test code = MCKAYLA) Dinner Cook ID - VINITA E Lab Interpretation (test Normal code = 62227-3) [facility]-[id number] 21:54:00 Test Item Value Reference Range Interpretation Comments ALPHA-1 ANTITRYPSIN (BEAKER) 133.40 mg/dL 90.00-200.00 (test code = 502) Dinner Cook ID - VINITA EImmunoglobulin G (IgG)2019-07-07 21:44:00 Test Item Value Reference Range Interpretation Comments IgG (test code = 2465-3) 1269 mg/dL 540-1822 MCKAYLA (test code = MCKAYLA) Dinner Cook ID - VINITA E Lab Interpretation (test Normal code = 24248-2) [facility] Angeles[facility]MUN[facility]GLOBULIN G (IGG)2019-07-07 21:44:00 Test Item Value Reference Range Interpretation Comments IMMUNOGLOBULIN G (IGG) (BEAKER) 1269 mg/dL 540-1,822 (test code = 427) Dinner Cook ID - VINITA EPOCT-GLUCOSE [id number] 21:43:00 Test Item Value Reference Range Interpretation Comments POC-GLUCOSE METER 75 mg/dL 70-110 : TESTED A T [facility] [address] (BEAKER) (test code = [place], 1538) [address]: Dinner Cook/Techni angelita ID = [id number] for MALIHA KELSEY Hepatitis A antibody, [id number] 20:00:00 Test Item Value Reference Range Interpretation Comments Hep A IgG (test code = Reactive Nonreactive A 29626-6) MCKAYLA (test code = MCKAYLA) Dinner Cook ID - VINITA E Lab Interpretation (test Abnormal code = 08247-7) [facility] ANTIBODY, [id number] 20:00:00 Test Item Value Reference Range Interpretation Comments HEPATITIS A IGG ANTIBODY (BEAKER) Reactive Nonreactive A (test code = 2797) Dinner Cook ID - VINITA EPregnancy Screen, [id number] 19:59:00 Test Item Value Reference Range Interpretation Comments Preg Test, Ur (test code = 2112-1) Negative [facility] SCREEN, [id number] 19:59:00 Test Item Value Reference Range Interpretation Comments TEST URINE (BEAKER) (test Negative code = 583) Hepatitis B surface [id number] 19:52:00 Test Item Value Reference Range Interpretation Comments Hep B S Ab (test code = 26.5 <8.0 mIU/mL H 60393-1) MCKAYLA (test code = MCKAYLA) Dinner Cook ID - VINITA E Lab Interpretation (test Abnormal code = 84545-6) [facility], [id number] 19:52:00 Test Item Value Reference Range Interpretation Comments Hep B Core Total Ab Nonreactive Nonreactive (test code = 21174-0) MCKAYLA (test code = MCKAYLA) Dinner Cook ID - VINITA E Lab Interpretation (test Normal code = 59832-5) [facility] panel, [id number] 19:52:00 Test Item Value Reference Range Interpretation Comments Hep A IgM (test code = Nonreactive Nonreactive 93542-3) Hep B C IgM (test code = Nonreactive Nonreactive 45985-1) Hepatitis C Ab (test Nonreactive Nonreactive code = 00320-1) HBsAg Screen (test code Nonreactive Nonreactive = 5195-3) MCKAYLA (test code = MCKAYLA) Dinner Cook ID - VINITA E Lab Interpretation (test Normal code = 94901-2) [facility] SURFACE [id number] 19:52:00 Test Item Value Reference Range Interpretation Comments HEPATITIS B SURFACE ANTIBODY 26.5 mIU/mL <8.0 H (BEAKER) (test code = 647) Dinner Cook ID - VINITA EHEPATITIS B CORE ANTIBODY, [id number] 19:52:00 Test Item Value Reference Range Interpretation Comments HEPATITIS B CORE TOTAL ANTIBODY Nonreactive Nonreactive (BEAKER) (test code = 497) Dinner Cook ID - VINITA EHEPATITIS PANEL, [id number] 19:52:00 Test Item Value Reference Range Interpretation Comments HEPATITIS A IGM ANTIBODY (BEAKER) Nonreactive Nonreactive (test code = 498) HEPATITIS B CORE IGM ANTIBODY Nonreactive Nonreactive (BEAKER) (test code = 645) HEPATITIS C ANTIBODY (BEAKER) Nonreactive Nonreactive (test code = 367) HEPATITIS B SURFACE ANTIGEN (2) Nonreactive Nonreactive (BEAKER) (test code = 2585) Dinner Cook ID - VINITA EPOCT-GLUCOSE [id number] 18:10:00 Test Item Value Reference Range Interpretation Comments POC-GLUCOSE METER 72 mg/dL 70-110 : TESTED A T [facility] 6720 (BEAKER) (test code = [place], 1538) [address]: Dinner Cook/Techni angelita ID = [id number] for ERWIN HARRISON [id number] 17:41:00 Test Item Value Reference Range Interpretation Comments Ferritin (test code = 109 ng/mL 5-275 2276-4) MCKAYLA (test code = MCKAYLA) Dinner Cook ID - VINITA E Lab Interpretation (test Normal code = 79524-9) [facility] AngelesFERRITIN2020-03-14 17:41:00 Test Item Value Reference Range Interpretation Comments FERRITIN (BEAKER) (test code = 361) 109 ng/mL 5-275 Dinner Cook ID - VINITA Grace, TIBC, % sat. (without ferritin)2019-07-07 17:21:00 Test Item Value Reference Range Interpretation Comments Iron (test code = 2498-4) 98.0 ug/dL 40-160 TIBC (test code = 2500-7) 308 ug/dL 250-450 Iron % Saturation (test 32 % 20-55 code = 2502-3) MCKAYLA (test code = MCKAYLA) Dinner Cook ID - VINITA E Lab Interpretation (test Normal code = 49830-0) [facility], TIBC, % SAT. (WITHOUT FERRITIN)2019-07-07 17:21:00 Test Item Value Reference Range Interpretation Comments IRON (BEAKER) (test code = 547) 98.0 ug/dL 40.0-160.0 TOTAL IRON BINDING CAPACITY 308 ug/dL 250-450 (BEAKER) (test code = 769) IRON % SATURATION (2) (BEAKER) 32 % 20-55 (test code = 2590) Dinner Cook ID - VINITA EVELYN, [id number] 17:18:00 Test Item Value Reference Range Interpretation Comments Rh Factor (test code = 2589) POS ABO Grouping (test code = 2588) A [facility] AngelesPT/[id number] 17:08:00 Test Item Value Reference Range Interpretation Comments Protime (test code = 13.1 11.9- 14.2 5902-2) seconds INR (test code = 1.0 <=5.9 6301-6) PTT (test code = 26.5 22.5- 36.0 09178-3) seconds MCKAYLA (test code = MCKAYLA) Effective 09/20/2018: PT Reference Range ChangeNew: 11.9-14.2 Previous: 11.7-14.7 RECOMMENDED COUMADIN/WARFARIN INR THERAPY RANGESSTANDARD DOSE: 2.0-3.0 Includes: PROPHYLAXIS for venous thrombosis, systemic embolization; TREATMENT for venous thrombosis and/or pulmonary embolus.HIGH RISK: Target INR is 2.5-3.5 for patients wiht mechanical heart valves. Lab Interpretation Normal (test code = 00414-8) [facility] AngelesPT/[id number] 17:08:00 Test Item Value Reference Range Interpretation Comments PROTIME (BEAKER) (test code = 13.1 seconds 11.9-14.2 759) INR (BEAKER) (test code = 370) 1.0 <=5.9 PARTIAL THROMBOPLASTIN TIME 26.5 seconds 22.5-36.0 (BEAKER) (test code = 760) Effective 09/20/2018: PT Reference Range ChangeNew: 11.9-14.2 Previous: 11.7- 14.7RECOMMENDED COUMADIN/WARFARIN INR THERAPY RANGESSTANDARD DOSE: 2.0-3.0 Includes: PROPHYLAXIS for venous thrombosis, systemic embolization; TREATMENT for venous thrombosis and/or pulmonary embolus.HIGH RISK: Target INR is2.5-3.5 for patients wiht mechanical heart valves.HEPATOBILIARY [id number] 15:52:00FINAL REPORT PROCEDURE: HEPATOBILIARY SCAN CPT CODE: 53971 INDICATION: epigastric pain, cholelithiasis PROTOCOL: 5.3 mCi of Tc-99m mebrofenin was injected intravenously. Images of the upper abdomen were obtained for approximately 130 minutes after tracer injection. FINDINGS: Initial tracer uptake into the liver is uniform but moderately delayed. Subsequent tracer clearance from the liver is markedly delayed. There is delayed and decreased visualization of the gallbladder. Tracer appears in the small bowel. IMPRESSION: 1. Diffuse hepatocellular dysfunction with cholestasis.2. Poor gallbladder filling may be due to hepatocellular dysfunction alone, but chronic cholecystitis can not be excluded. Signed: Jas Peralta MDReport Verified Date/Time: 07/07/2019 15:52:12 NM hepatobiliary (HIDA) [id number] 15:52:00Interface, External Ris In - 07/07/2019 3:54 PM CDTFINAL REPORT PROCEDURE: HEPATOBILIARY SCAN CPT CODE: 00068 INDICATION: epigastric pain, cholelithiasis PROTOCOL: 5.3 mCi of Tc-99m mebrofenin was injected intravenously. Images of the upper abdomen wereobtained for approximately 130 minutes after tracer injection. FINDINGS: Initial tracer uptake into the liver is uniform but moderately delayed. Subsequent tracer clearance from the liver is markedly delayed. There is delayed and decreased visualization of the gallbladder. Tracer appears in the small bowel. IMPRESSION: 1. Diffuse hepatocellular dysfunction with cholestasis.2. Poor gallbladder filling may be due to hepatocellular dysfunction alone, but chronic cholecystitis can not be ex cluded. Signed: Jas Peralta MDReport Verified Date/Time: 07/07/2019 15:52:12 [facility] CenterAmylase2020-03-[facility] 14:35:00 Test Item Value Reference Range Interpretation Comments Amylase (test code = 62 U/L 25-125 1798-8) MCKAYLA (test code = MCKAYLA) Dinner Cook ID - NTPSpecimen slightly icteric Lab Interpretation (test Normal code = 47716-2) [facility] Angeles[facility]YLASE2020-03-14 14:35:00 Test Item Value Reference Range Interpretation Comments AMYLASE (BEAKER) (test code = 349) 62 U/L 25-125 Dinner Cook ID - NTPSpecimen slightly [id number] 14:35:00 Test Item Value Reference Range Interpretation Comments LIPASE (BEAKER) (test code = 749) 10 U/L 8-78 Dinner Cook ID - NTPSpecimen slightly ictericType and screen, [id number] 12:28:00 Test Item Value Reference Range Interpretation Comments ABO/RH AUTOMATED (BEAKER) (test A POSITIVE code = 2260) Ab Scrn (test code = 890-4) NEGATIVE [facility] AngelesPOCT-GLUCOSE [id number] 12:18:00 Test Item Value Reference Range Interpretation Comments POC-GLUCOSE METER 82 mg/dL 70-110 : TESTED Audrey Kumari [facility] [address] (BEAKER) (test code = [place], 1538) [address]: Dinner Cook/Techni angelita ID = [id number] for ERWIN HARRISON Comprehensive metabolic [id number] 11:57:00 Test Item Value Reference Range Interpretation Comments Protein, Total (test 7.0 6.0- 8.3 gm/dL code = 2885-2) Albumin (test code = 3.9 g/dL 3.5-5 49416-9) Alkaline Phosphatase 218 U/L 40-150 H (test code = 6768-6) Total Bilirubin (test 3.1 mg/dL 0.2-1.2 H code = 1975-2) Sodium (test code = 138 meq/L 960-382 0935-2) Potassium (test code 3.7 meq/L 3.5-5.1 = 2823-3) Chloride (test code = 107 meq/L 98-107 2075-0) CO2 (test code = 24 meq/L 22-29 2028-9) BUN (test code = 10 mg/dL 7-21 3094-0) Creatinine (test code 0.79 mg/dL 0.57-1.25 = 2160-0) Glucose (test code = 91 mg/dL 70-105 2345-7) Calcium (test code = 9.1 mg/dL 8.4-10.2 13782-9) AST (test code = 461 U/L 5-34 H 1920-8) ALT (test code = 777 U/L 6-55 H 1742-6) EGFR (test code = 103 mL/min/1.73 [place] [address]-4) NOT ACCURATE CREATININE CLEARANCE IN PREDICTING GLOMERULAR FILTRATION RATE . ESTIMATED GFR I S NOT APPLICABLE FOR DIALYSIS PATIENTS. MCKAYLA (test code = MCKAYLA) Dinner Cook ID - JACOBY MSpecimen slightly icteric Lab Interpretation Abnormal (test code = 79153-0) [facility] AngelesCOMPREHENSIVE METABOLIC [id number] 11:57:00 Test Item Value Reference Range Interpretation Comments TOTAL PROTEIN 7.0 gm/dL 6.0-8.3 (BEAKER) (test code = 770) ALBUMIN (BEAKER) 3.9 g/dL 3.5-5.0 (test code = 1145) ALKALINE PHOSPHATASE 218 U/L 40-150 H (BEAKER) (test code = 346) BILIRUBIN TOTAL 3.1 mg/dL 0.2-1.2 H (BEAKER) (test code = 377) SODIUM (BEAKER) (test 138 meq/L 136-145 code = 381) POTASSIUM (BEAKER) 3.7 meq/L 3.5-5.1 (test code = 379) CHLORIDE (BEAKER) 107 meq/L 98-107 (test code = 382) CO2 (BEAKER) (test 24 meq/L 22-29 code = 355) BLOOD UREA NITROGEN 10 mg/dL 7-21 (BEAKER) (test code = 354) CREATININE (BEAKER) 0.79 mg/dL 0.57-1.25 (test code = 358) GLUCOSE RANDOM 91 mg/dL 70-105 (BEAKER) (test code = 652) CALCIUM (BEAKER) 9.1 mg/dL 8.4-10.2 (test code = 697) AST (SGOT) (BEAKER) 461 U/L 5-34 H (test code = 353) ALT (SGPT) (BEAKER) 777 U/L 6-55 H (test code = 347) EGFR (BEAKER) (test 103 ESTIMATE D GFR IS code = 1092) mL/min/1.73 sq NOT ACCURA TE m CREATININE CLEARANCE IN PREDICTING GLOMERULAR FILTRATION RATE . ESTIMATED GFR I S NOT APPLICABLE FOR DIALYSIS PATIEN TS. Dinner Cook ID - JACOBY MSpecimen slightly ictericHEPATIC FUNCTION [id number] 11:57:00 Test Item Value Reference Range Interpretation Comments TOTAL PROTEIN (BEAKER) (test code = 7.0 gm/dL 6.0-8.3 770) ALBUMIN (BEAKER) (test code = 1145) 3.9 g/dL 3.5-5.0 BILIRUBIN TOTAL (BEAKER) (test code 3.1 mg/dL 0.2-1.2 H = 377) BILIRUBIN DIRECT (BEAKER) (test 2.0 mg/dL 0.1-0.5 H code = 706) ALKALINE PHOSPHATASE (BEAKER) (test 218 U/L 40-150 H code = 346) AST (SGOT) (BEAKER) (test code = 461 U/L 5-34 H 353) ALT (SGPT) (BEAKER) (test code = 777 U/L 6-55 H 347) Dinner Cook SHELLY DOZIER MSpecimen slightly ictericCBC W/PLT COUNT & AUTO [id number] 11:39:00 Test Item Value Reference Range Interpretation Comments WHITE BLOOD CELL COUNT (BEAKER) 4.6 K/ L 3.5-10.5 (test code = 775) RED BLOOD CELL COUNT (BEAKER) 4.53 M/ L 3.93-5.22 (test code = 761) HEMOGLOBIN (BEAKER) (test code = 11.1 GM/DL 11.2-15.7 L 410) HEMATOCRIT (BEAKER) (test code = 35.4 % 34.1-44.9 411) MEAN CORPUSCULAR VOLUME (BEAKER) 78.1 fL 79.4-94.8 L (test code = 753) MEAN CORPUSCULAR HEMOGLOBIN 24.5 pg 25.6-32.2 L (BEAKER) (test code = 751) MEAN CORPUSCULAR HEMOGLOBIN CONC 31.4 GM/DL 32.2-35.5 L (BEAKER) (test code = 752) RED CELL DISTRIBUTION WIDTH 16.6 % 11.7-14.4 H (BEAKER) (test code = 412) PLATELET COUNT (BEAKER) (test 298 K/CU MM 150-450 code = 756) MEAN PLATELET VOLUME (BEAKER) 11.0 fL 9.4-12.3 (test code = 754) NUCLEATED RED BLOOD CELLS 0 /100 WBC 0-0 (BEAKER) (test code = 413) NEUTROPHILS RELATIVE PERCENT 55 % (BEAKER) (test code = 429) LYMPHOCYTES RELATIVE PERCENT 25 % (BEAKER) (test code = 430) MONOCYTES RELATIVE PERCENT 15 % (BEAKER) (test code = 431) EOSINOPHILS RELATIVE PERCENT 4 % (BEAKER) (test code = 432) BASOPHILS RELATIVE PERCENT 0 % (BEAKER) (test code = 437) NEUTROPHILS ABSOLUTE COUNT 2.52 K/ L 1.56-6.13 (BEAKER) (test code = 670) LYMPHOCYTES ABSOLUTE COUNT 1.14 K/ L 1.18-3.74 L (BEAKER) (test code = 414) MONOCYTES ABSOLUTE COUNT (BEAKER) 0.69 K/ L 0.24-0.36 H (test code = 415) EOSINOPHILS ABSOLUTE COUNT 0.19 K/ L 0.04-0.36 (BEAKER) (test code = 416) BASOPHILS ABSOLUTE COUNT (BEAKER) 0.02 K/ L 0.01-0.08 (test code = 417) IMMATURE GRANULOCYTES-RELATIVE 0 % 0-1 PERCENT (BEAKER) (test code = 2801) POCT-GLUCOSE [id number] 06:50:00 Test Item Value Reference Range Interpretation Comments POC-GLUCOSE METER 96 mg/dL 70-110 : TESTED A T [facility] [address] (BEAKER) (test code = [place], 1538) [address]: Dinner Cook/Techni angelita ID = [id number] for MARTELL WHITLOCK
--- NOTE | 2020-05-29 19:41 | ER ---
Nurse's Notes [facility] Name: Melanie Paz Age: 30 yrs Sex: Female : 1990 Arrival Date: 05/29/2020 Time: 15:37 Bed Waiting Private MD: Diagnosis: Presentation: 05/29 15:42 Chief complaint: Patient states: CP, SOB, palpitations off/on for 1 week. + drainage sv from throat for 1 week. No major cough or fever. 27 weeks G4, P0. Went to L\T\D first, got baby checked. Coronavirus screen: Client denies travel out of the [place] in the last 14 days. congestion, difficulty breathing, fatigue, nausea, runny nose, shortness of breath, Client presents with at least one sign or symptom that may indicate coronavirus-19. Standard/surgical mask placed on the client. Ebola Screen: Patient denies travel to an Ebola-affected area in the 21 days before illness onset. Initial Sepsis Screen: Does the patient meet any 2 criteria? HR > 90 bpm. No. Patient's initial sepsis screen is negative. Does the patient have a suspected source of infection? No. Patient's initial sepsis screen is negative. Risk Assessment: Do you want to hurt yourself or someone else? Patient reports no desire to harm self or others. Onset of symptoms was May 24, 2020. 15:42 Method Of Arrival: Wheelchair sv 15:42 Acuity: NEIL 3 sv Historical: - Allergies: 15:42 NKDA; sv - PMHx: 15:42 Diabetes - NIDDM; PCOS; sv - PSHx: 15:42 Cholecystectomy; R ovary removed; R knee sx; sv - Immunization history:: Flu vaccine is not up to date. - Social history:: Smoking status: Patient denies any tobacco usage or history of. Vital Signs: 15:42 BP 140 / 78; Pulse 104; Resp 17; Temp 98.2; Pulse Ox 100% ; Weight 104.33 kg; Height 5 sv ft. 4 in. (162.56 cm); Pain 4/10; 15:42 Body Mass Index 39.48 (104.33 kg, 162.56 cm) sv ED Course: 15:37 Patient arrived in ED. mr 15:41 Arm band placed on. sv 15:45 Triage completed. sv 16:00 EKG completed in triage. Results shown to . ll1 16:00 EKG done in triage, ok'd and checked by Dr. Sanchez. [facility] 19:40 Not in lobby or restroom when called back to ER room for physician eval. LWBS. ll1 Administered Medications: No medications were administered Outcome: 19:40 Patient left the ED. 1 Signatures: Milly Villarreal RN RN Melanie Guevara Lynsay, VIDHI RN [facility]
[2020-05-29 20:26] VITALS: BP 140/78; TEMP 98.2; O2SAT 100
== END 2020-05-29 19:40 | disposition left against medical advice (07) ==
LOC: ER 15:31
DX: Z53.21 Procedure and treatment not carried out due to patient leaving prior to being seen by health care provider (principal)
CPT/HCPCS: 93005; 99281

== ENCOUNTER 2020-07-10 08:53 | Emergency (ER) | payer OTHER ==
--- OUTSIDE RECORDS SUMMARY | 2020-07-10 08:57 | XMS REPORT | Continuity of Care Document ---
:1990 Author Organization [facility] t Address [address] [place] [address] Care Team Providers Name Role Phone Yolanda Rodriguez MD Attending Clinician Doctor Unassigned, Name Attending Clinician Unavailable Gilberto Ronquillo MD Attending Clinician Bina MOSHER, M Attending Clinician Unavailable Josep HOOKS C Attending Clinician Josiane CASING FLUID TENDER, G Attending Clinician Singer RAUSCH Attending Clinician BOBBY Attending Clinician Unavailable Bobby COLINDRES Attending Clinician Óscar COLINDRES Attending Clinician Katarina Gann MD Attending Clinician Otto Mueller MD Attending Clinician Yolanda Rodriguez MD Admitting Clinician Gilberto Ronquillo MD Admitting Clinician OTTO MUELLER Admitting Clinician Unavailable Payers Payer Name Policy Type Policy Effective Date Expiration Date Sour ce Number MEDICAID - [id number] [facility] MEDICAID MGD 00:00:00 - Medical [place] [facility] HE[facility] [id number]-PresentMedic aid Contracted Problems Condition Condition Condition Status Onset Resolution Last Treating Co mments Source Name Details Category Date Date Treatment Clinician Date Cholelithi Cholelithi Disease Active [facility] Medical 00 [place] RUQ pain RUQ pain Disease [facility] 00 [place] Allergies, Adverse Reactions, Alerts This patient has no known allergies or adverse reactions. Family History Family Member Diagnosis Comments Start Date Stop Date Source Natural father Unremarkable [facility] Natural mother Unremarkable [facility] Social History Social Habit Start Date Stop Date Quantity Comments Source Sex Assigned At [facility] Alcohol intake 2019-07-10 2019-07-[address] [facility] S keron [facility]00 of [facility] (finding) Tobacco use and 2019-07-10 2019-07-10 Never used [facility] - exposure 00:00:00 00:00:00 [facility] Tobacco Comment 2019-07-08 2019-07-08 smoke around [facility] - 00:00:00 00:00:00 smokers ,6 mos Medical Ce nter ago Alcohol Comment 2019-07-08 2019-07-08 twice a [facility]00 [facility] History of 2019-02-06 Current smoker [facility] - tobacco use 00:00:00 [facility] Cent[facility] Smoking Status Start Date Stop Date Source Former smoker 2019-07-10 00:00:00 2019-07-10 00:00:00 [facility] Medications Ordered Filled Start Stop [...] needed. Max Daily Amount: 6 tablets ketorolac 10mg Take 1 [facility] (TORADOL) 07-09 tablet (10 [facility] - 10 mg 00:00: 23:59 mg total) Medica l tablet 00 :00 by mouth Center every 6 (six) hours as needed for Pain for up to 5 days. Vital Signs Vital Name Observation Time Observation Value Comments Source Systolic blood 2019-07-10 08:00:00 158 mm[Hg] [facility] Diastolic blood 2019-07-10 08:00:00 87 mm[Hg] [facility] S t [facility] Heart rate 2019-07-10 08:00:00 89 /min [facility] Body temperature 2019-07-10 08:00:00 37 Michell [facility] Respiratory rate 2019-07-10 08:00:00 18 /min [facility] Oxygen saturation in 2019-07-10 08:00:00 98 /min [facility] Arterial blood by Medical Ce nter Pulse oximetry Procedures Procedure Date / Time Performed Performing Clinician [facility] e REPORT OF PROCEDURE - 2019-07-11 10:02:00 Provider, Default [facility] ENDOSCOPY SCAN Scanning [facility] BASIC METABOLIC PANEL 2019-07-10 03:29:00 Haley Krueger CH, I [facility] (7) [facility] HEPATIC FUNCTION PANEL 2019-07-10 03:29:00 Haley Krueger [facility] CBC W/PLT COUNT & AUTO 2019-07-10 03:29:[address] [facility] Plan of Care Planned Activity Planned Date Details Comments Source Future Scheduled 2020-01-08 Hemoglobin A1c [facility] kes - Test 00:00:00 [facility] (procedure) [code = 44125951] Future Scheduled 2019-12-25 [facility]ZA [facility] (#[facility] [code = INFLUENZA Medical Ce nter VACCINE (#1)] Future Scheduled 2009-02-09 [facility] Test 00:00:00 [facility] cervix (procedure) [code = 387050300] Future Scheduled [address] [facility] - Test 00:00:00 (procedure) [code = Medical Center 66583299] Future Scheduled 1998-02-[address] DIABETIC EYE EXAM [facility] - Test 00:00:00 [code = DIABETIC EYE Medical Center EXAM] Future Scheduled 1998-02-[address] [facility] - Test 00:00:00 examination Medical Center (regime/therapy) [code = 871767273] Future Scheduled 1998-02-09 Urine screening for [facility] - Test 00:00:00 protein (procedure) Medical Center [code = 002242802] Future Scheduled 1994-02-[address] [facility] - Test 00:00:00 0-64 YRS (1 of 1 - Medical C enter PPSV23) [code = PNEUMOCOCCAL VACCINE 0-64 YRS (1 of 1 - PPSV23)] Encounters Start End Encounter Admission Attending Care Care Encounter Source Date/Time Date/Time Type Type Clinicians Facility Department ID 2020-07-03 2020[facility]07[facility]03 [id number] 15:30:00 16:44:00 Encounter Olya ORLANDO 350.1.13.10 ANNEX 4.2.7.2.686 [id number] 070 2020-07-02 2020-07-02 Orders Doctor IVAN [id number] 00:00:00 00:00:00 Only Unassigned, DARION 350.1.13.10 [place] [facility] 4.2.7.2.686 [id number] 009 2020-06-27 2020-06-27 [facility] 1.2.840.114 [id number] 17:54:00 20:00:00 Encounter Gilberto Mayo 350.1.13.10 [place] 4.2.7.2.686 [place] [id number] 2020-06-27 2020-06-27 Nurse Esther Curran 1.2.840.114 [id number] 00:00:00 00:00:00 Triage DARION [address].13.[address] [id number] 019 2020-06-26 2020-06-26 Routine [place], [facility] [id number] 08:13:46 08:45:55 Heidy C AWS DEVELOPER 350.1.13.10 Visit REGIONAL 4.2.7.2.686 MATERNAL [id number] & CHILD 107 [facility] 2020-06-26 2020-06-26 Orders Doctor IVAN [id number] 00:00:00 00:00:00 Only Unassigned, DARION 350.1.13.10 [place] [facility] 4.2.7.2.686 [id number] 009 2020-06-19 2020-06-19 Routine [place], [facility] 1.2.744.926 [id number] 16:12:48 16:55:51 Heidy C AWS DEVELOPER 350.1.13.10 Visit REGIONAL 4.2.7.2.686 MATERNAL [id number] & CHILD 107 [facility] 2020-06-05 2020-06-05 Routine [place], [facility] 1.2.358.820 [id number] 16:10:24 16:44:03 Heidy C AWS DEVELOPER 350.1.13.10 Visit REGIONAL 4.2.7.2.686 MATERNAL [id number] & CHILD 107 [facility] 2020-05-30 2020-05-30 Emergency Karin Joshua G [facility] 1.2.840 .114 [id number] 12:02:00 14:45:00 Carlos Aguillon 350.1.13.10 [place] 4.2.7.2.686 [place] [id number] 084 2020-05-29 2020-05-29 Telephone [place], [facility] 1.2.840.114 [id number] 00:00:00 00:00:00 Heidy C AWS DEVELOPER 350.1.13.10 [facility] 4.2.7.2.686 MATERNAL [id number] & CHILD 107 [facility] 2020-05-22 2020-05-22 Telephone [place], [facility] 1.2.840.114 [id number] 00:00:00 00:00:00 Heidy C AWS DEVELOPER 350.1.13.10 [facility] 4.2.7.2.686 MATERNAL [id number] & CHILD [address] [place] [address] Results Test Description Test Time Test Comments Results Result Comments Source BLOOD CULTURE 2019-07-12 10:00:00 Test Item Value Reference Range Interpretation Comme nts CULTURE (BEAKER) (test code = 1095) No growth in 5 days BLOOD [id number] 10:00:00 Test Item Value Reference Range Interpretation Comments CULTURE (BEAKER) (test No growth in 5 days code = 1095) CAMI TITER AND [id number] 09:54:00 Test Item Value Reference Range Interpretation Comments CAMI TITER (BEAKER) (test code = :640 1541) CAMI PATTERN (BEAKER) (test code = Nucleolar 1781) ANTI-NUCLEAR ANTIBODY (CAMI)2019-07-12 09:53:00 Test Item Value Reference Range Interpretation Comments ANTI-NUCLEAR ANTIBODY (CAMI) (BEAKER) Positive Negative A (test code = 418) Test performed by IFA method.ANTI-MITOCHONDRIAL AB, REFLEX TO [id number] 08:58:00 Test Item Value Reference Range Interpretation Comments SCAN RESULT (test code = 2659451) TISSUE [id number] 17:32:00Surgical Pathology Report Case: [id number] Authorizing Provider: Shimon Logan MD Collected: 07/09/2019 1729 Ordering Location: [address] Received: 07/10/2019 0902 Service Pathologist: Babak Hermosillo MD Specimens: A) - Biopsy, Liver B) -Gallbladder A. LIVER BIOPSY- PORTAL TRACTS WITH MILD CHRONIC INFLAMMATION- NO SIGNIFICANT STEATOSIS SEEN- NO LOBULAR INFLAMMATION OR BALLOONING DEGENERATION SEEN- NO SIGNIFICANT FIBROSIS SEEN- NO STAINABLE IRON - SEE COMMENTB. GALLBLADDER, CHOLECYSTECTOMY- CHRONIC CHOLECYSTITIS- CHOLELITHIASIS Signing PathologistDirect Phone Line: [phone] signed by Babak Hermosillo MD on 07/11/2019 at 5:32 PMClinical correlation with serology is recommended.55308, 40653, 11751 X 4Biliary calculus of other site with [...] stippling. The wall measures 0.3 cm thick. [employer] Fre[employer] sections are submitted in B1-B2, with the inked cystic duct margin in B1. PA/ewPerformed.The interpretation of this case included the use of immunohistochemistry or special stainson block A.Trichrome- no significant fibrosis reticulin- normal xejxqpirpxUjmi-dumorrplDTZ-B- no abnormal intracellular depositsControl Slides Examined: In-house known positive controls were evaluatedalong with the test tissue. These control slides run alongside of the patients sample show appropriate staining. Internal positive and negative controls when available are evaluated Immunohistochemistry technical testing was performed at [facility], Pathology Laboratory where itwas developed and [...] qualified to perform high complexity clinical laboratory testing.[facility], Department of Pathology, [address] [place] [address] 13088, [facility], Department of Pathology, [address] [place] [address] 134[address], [facility], Department of Pathology, [address] [place] [address], Tzckt metabolic panel 2019-07-10 05:21:00 Test Item Value Reference Range Interpretation Comments Sodium (test code = 136 meq/L 122-977 8001-2) Potassium (test code = 4.0 meq/L 3.5-5.1 2823-3) Chloride (test code = 104 meq/L 98-107 2075-0) CO2 (test code = 24 meq/L 22-29 2028-9) BUN (test code = 5 mg/dL 7-21 L 3094-0) Creatinine (test code 0.69 mg/dL 0.57-1.25 = 2160-0) Glucose (test code = 114 mg/dL 70-105 H 2345-7) Calcium (test code = 8.7 mg/dL 8.4-10.2 76445-2) EGFR (test code = 120 mL/min/1.73 [place] [address]-5) NOT ACCURATE CREATININE CLEARANCE IN PREDICTING GLOMERULAR FILTRATION RATE . ESTIMATED GFR I S NOT APPLICABLE FOR DIALYSIS PATIENTS. MCKAYLA (test code = MCKAYLA) Hourly Shift Manager ID - JACOBY M Lab Interpretation Abnormal (test code = 88630-3) [facility] [id number] 05:21:00 Test Item Value Reference Range Interpretation Comments Protein, Total (test 6.9 See_Comment [Autom ated code = 2885-2) message] The system which generated this result transmit josy reference range : 6.0 - 8.3 gm/dL . The reference range was not u sed to interpret th is result as normal/abnormal . Albumin (test code = 3.7 g/dL 3.5-5 15608-6) Total Bilirubin (test 0.6 mg/dL 0.2-1.2 code = 1975-2) Bilirubin, Direct 0.3 mg/dL 0.1-0.5 (test code = 1968-7) Alkaline Phosphatase 195 U/L 40-150 H (test code = 6768-6) AST (test code = 109 U/L 5-34 H 1920-8) ALT (test code = 314 U/L 6-55 H 1742-6) MCKAYLA (test code = MCKAYLA) Hourly Shift Manager ID - JACOBY M Lab Interpretation Abnormal (test code = 05543-6) [facility] [id number] 05:21:00 Test Item Value Reference Range Interpretation [...] code = 314 U/L 6-55 H 347) Hourly Shift Manager ID - JACOBY MBASIC METABOLIC [id number] 05:21:00 Test Item Value Reference Range Interpretation [...] S NOT APPLICABLE FOR DIALYSIS PATIEN TS. Hourly Shift Manager ID - JACOBY MCBC with platelet count + automated [id number] 04:52:00 Test Item Value Reference Range Interpretation Comments WBC (test code = 6690-2) 10.1 See_Comment [A utomated message] The system [employer] generated this result transmitted ref erence range: 3.5 - 10 .5 K/L. The refe rence range was not u sed to interpret this result as normal/abnor mal. RBC (test code = 789-8) 4.43 See_Comment [Au tomated message] The system [employer] generated this result transmitted ref erence range: 3.93 - 5 .22 M/L. The refe rence range was not u sed to interpret this result as normal/abnor mal. MCHC (test code = 786-4) 31.2 See_Comment L [A utomated message] The system [employer] generated this result transmitted ref erence range: 32.2 - 3 5.5 GM/DL. The refe rence range was not u sed to interpret this result as normal/abnor mal. Hematocrit (test code = 34.6 % 34.1-44.9 4544-3) MCV (test code = 787-2) 78.1 fL 79.4-94.8 L MCH (test code = 785-6) 24.4 pg 25.6-32.2 L RDW (test code = 788-0) 16.6 % 11.7-14.4 H Platelets (test code = 286 See_Comment [Aut omated message] 777-3) The system [employer] generated this result transmitted ref erence range: 150 - 45 0 K/CU MM. The referen ce range was not u sed to interpret this result as normal/abnor mal. MPV (test code = 11.6 fL 9.4-12.3 44948-4) nRBC (test code = 413) 0 See_Comment [Aut omated message] The system [employer] generated this result transmitted ref erence range: 0 - 0 /1 00 WBC. The refere nce range was not u sed to interpret this result as normal/abnor mal. % Neutros (test code = 86 % 429) % Lymphs (test code = 9 % 430) % Monos (test code = 5 % 431) % Eos (test code = 432) 0 % % Baso (test code = 437) 0 % # Neutros (test code = 8.67 See_Comment H [Aut omated message] 670) The system [employer] generated this result transmitted ref erence range: 1.56 - 6 .13 K/L. The refe rence range was not u sed to interpret this result as normal/abnor mal. # Lymphs (test code = 0.92 See_Comment L [Auto mated message] 414) The system [employer] generated this result transmitted ref erence range: 1.18 - 3 .74 K/L. The refe rence range was not u sed to interpret this result as normal/abnor mal. # Monos (test code = 0.50 See_Comment H [Autom ated message] 415) The system [employer] generated this result transmitted ref erence range: 0.24 - 0 .36 K/L. The refe rence range was not u sed to interpret this result as normal/abnor mal. # Eos (test code = 416) 0.00 See_Comment L [Au tomated message] The system [employer] generated this result transmitted ref erence range: 0.04 - 0 .36 K/L. The refe rence range was not u sed to interpret this result as normal/abnor mal. # Baso (test code = 417) 0.01 See_Comment [A utomated message] The system [employer] generated this result transmitted ref erence range: 0.01 - 0 .08 K/L. The refe rence range was not u sed to interpret this result as normal/abnor mal. Immature 0 % 0-1 Granulocytes-Relative (test code = 2801) Lab Interpretation (test Abnormal code = 96851-8) [facility] W/PLT COUNT & AUTO [id number] 04:52:00 Test Item Value Reference Range Interpretation [...] PERCENT (BEAKER) (test code = 2801) POCT-GLUCOSE [id number] 21:29:00 Test Item Value Reference Range Interpretation Comments POC-GLUCOSE METER 99 mg/dL 70-110 : TESTED A T [facility] 6720 (BEAKER) (test code = QUITA ARMSTRONG, 1538) 15547: Hourly Shift Manager/Techni angelita ID = [id number] for MALIHA KELSEY POCT-GLUCOSE [id number] 18:23:00 Test Item Value Reference Range Interpretation Comments POC-GLUCOSE METER 109 mg/dL 70-110 : TESTED A T [facility] 6720 (BEAKER) (test code = [facility], 1538) 93938: Hourly Shift Manager/Techni angelita ID = [id number] for HERMAN MAHAN POCT-GLUCOSE [id number] 12:24:00 Test Item Value Reference Range Interpretation Comments POC-GLUCOSE METER 79 mg/dL 70-110 : TESTED A T [facility] 6720 (BEAKER) (test code = [facility], 1538) 57022: Hourly Shift Manager/Techni angelita ID = [id number] for PREM YEE POCT-GLUCOSE [id number] 10:15:00 Test Item Value Reference Range Interpretation Comments POC-GLUCOSE METER 84 mg/dL 70-110 : TESTED A T [facility] 6720 (BEAKER) (test code = [facility], 1538) 18327: Hourly Shift Manager/Techni angelita ID = [id number] for FOUZIA FLOWER [id number] 07:13:00 Test Item Value Reference Range Interpretation Comments LIPASE (BEAKER) (test code = 749) 11 U/L 8-78 Hourly Shift Manager ID - DAINA FHEPATIC FUNCTION [id number] 05:52:00 Test Item Value Reference Range Interpretation [...] code = 388 U/L 6-55 H 347) Hourly Shift Manager ID - JACOBY MBASIC METABOLIC [id number] 05:52:00 Test Item Value Reference Range Interpretation [...] S NOT APPLICABLE FOR DIALYSIS PATIEN TS. Hourly Shift Manager ID - JACOBY [facility] W/PLT COUNT & AUTO [id number] 05:16:00 Test Item Value Reference Range Interpretation [...] PERCENT (BEAKER) (test code = 2801) PROTHROMBIN [id number] 05:12:00 Test Item Value Reference Range Interpretation [...] is2.5-3.5 for patients wiht mechanical heart valves.POCT-GLUCOSE [id number] 22:53:00 Test Item Value Reference Range Interpretation Comments POC-GLUCOSE METER 106 mg/dL 70-110 : TESTED Audrey T [facility] 6720 (BEAKER) (test code = [place], 1538) 95040: Hourly Shift Manager/Techni angelita ID = [id number] for LAISHA PALENCIA HEMOGLOBIN [id number] 19:49:00 Test Item Value Reference Range Interpretation Comments HEMOGLOBIN A1C (BEAKER) (test code = 5.2 % 4.3-6.1 368) POCT-GLUCOSE [id number] 18:29:00 Test Item Value Reference Range Interpretation Comments POC-GLUCOSE METER 107 mg/dL 70-110 : TESTED A T [facility] 6720 (BEJESU) (test code = QUITA Russo [facility], 1538) 34481: Hourly Shift Manager/Techni angelita ID = [id number] for AMADO HARRISONYL [id number] 15:50:00 Test Item Value Reference Range Interpretation Comments LIPASE (ALBERTO) (test code = 749) 12 U/L 8-78 Hourly Shift Manager ID - BSPOCT-GLUCOSE [id number] 12:24:00 Test Item Value Reference Range Interpretation Comments POC-GLUCOSE METER 85 mg/dL 70-110 : TESTED A T [facility] 6720 (ALBERTO) (test code = QUITA Russo [facility], 153) 54438: Hourly Shift Manager/Techni angelita ID = [id number] for AMADO HARRISONYL FL, FLUORO, NON-SPECIFIC, UP TO 1 [id number] 10:29:00Reason for exam:->ercpFINAL REPORT A fluoroscopic unit was utilized for a procedure performed in the operating room. No interpretation was requested. Please refer to the operative report regarding findings. Please refer to PACS for patient radiation dose information. Signed: JR Slater Robert MDReport Verified Date/Time: 07/08/2019 10:29:57 Reading Location: [address] Neuro Reading Room POCT-GLUCOSE [id number] 06:50:00 Test Item Value Reference Range Interpretation Comments POC-GLUCOSE METER 110 mg/dL 70-110 : TESTED A T [facility] 6720 (ALBERTO) (test code = [facility] Karan [facility], 1538) 24883: Hourly Shift Manager/Techni angelita ID = [id number] for MM, MALIHA U/S, ABDOMINAL, [id number] 05:50:00Abdomen limited area? Add comment if clarification [...] possibility of chronic cholecystitis. Signed: José Miguel Danielle MDReport Verified Date/Time: 07/08/2019 05:50:43 HEPATIC FUNCTION [id number] 05:40:00 Test Item Value Reference Range Interpretation [...] code = 501 U/L 6-55 H 347) Hourly Shift Manager ID - JACOBY MBASIC METABOLIC [id number] 05:40:00 Test Item Value Reference Range Interpretation [...] S NOT APPLICABLE FOR DIALYSIS PATIEN TS. Hourly Shift Manager ID - JACOBY [facility] W/PLT COUNT & AUTO [id number] 05:33:00 Test Item Value Reference Range Interpretation [...] PERCENT (BEAKER) (test code = 2801) PROTHROMBIN TIME/[id number] 05:26:00 Test Item Value Reference Range Interpretation [...] INR is2.5-3.5 for patients wiht mechanical heart valves.[id number] 21:54:00 Test Item Value Reference Range Interpretation Comments ALPHA-1 ANTITRYPSIN (BEAKER) 133.40 mg/dL 90.00-200.00 (test code = 502) Hourly Shift Manager ID - VINITA EIMMUNOGLOBULIN G (IGG)2019-07-07 21:44:00 Test Item Value Reference Range Interpretation Comments IMMUNOGLOBULIN G (IGG) (BEAKER) 1269 mg/dL 540-1,822 (test code = 427) Hourly Shift Manager ID - VINITA EPOCT-GLUCOSE [id number] 21:43:00 Test Item Value Reference Range Interpretation Comments POC-GLUCOSE METER 75 mg/dL 70-110 : TESTED A T [facility] 6720 (BEAKER) (test code = [place], 1538) 30342: Hourly Shift Manager/Techni angelita ID = [id number] for MALIHA KELSEY HEPATITIS A ANTIBODY, [id number] 20:00:00 Test Item Value Reference Range Interpretation Comments HEPATITIS A IGG ANTIBODY (BEAKER) Reactive Nonreactive A (test code = 2797) Hourly Shift Manager ID Ivon TALAMANTES EPREGNANCY SCREEN, [id number] 19:59:00 Test Item Value Reference Range Interpretation Comments TEST URINE (BEAKER) (test Negative code = 583) HEPATITIS B SURFACE [id number] 19:52:00 Test Item Value Reference Range Interpretation Comments HEPATITIS B SURFACE ANTIBODY 26.5 mIU/mL <8.0 H (BEAKER) (test code = 647) Hourly Shift Manager ID Ivon TALAMANTES EHEPATITIS B CORE ANTIBODY, [id number] 19:52:00 Test Item Value Reference Range Interpretation Comments HEPATITIS B CORE TOTAL ANTIBODY Nonreactive Nonreactive (BEAKER) (test code = 497) Hourly Shift Manager ID - VINITA EHEPATITIS PANEL, [id number] 19:52:00 Test Item Value Reference Range Interpretation Comments HEPATITIS A IGM ANTIBODY (BEAKER) Nonreactive Nonreactive (test code = 498) HEPATITIS B CORE IGM ANTIBODY Nonreactive Nonreactive (BEAKER) (test code = 645) HEPATITIS C ANTIBODY (BEAKER) Nonreactive Nonreactive (test code = 367) HEPATITIS B SURFACE ANTIGEN (2) Nonreactive Nonreactive (BEAKER) (test code = 2585) Hourly Shift Manager ID - VINITA EPOCT-GLUCOSE [id number] 18:10:00 Test Item Value Reference Range Interpretation Comments POC-GLUCOSE METER 72 mg/dL 70-110 : TESTED A T [facility] 6720 (BEAKER) (test code = QUITA Russo [facility], 1538) 20697: Hourly Shift Manager/Techni angelita ID = [id number] for ERWIN HARRISON [id number] 17:41:00 Test Item Value Reference Range Interpretation Comments FERRITIN (BEAKER) (test code = 361) 109 ng/mL 5-275 Hourly Shift Manager ID - VINITA EIRON, TIBC, % SAT. (WITHOUT FERRITIN)2019-07-07 17:21:00 Test Item Value Reference Range Interpretation Comments IRON (BEAKER) (test code = 547) 98.0 ug/dL 40.0-160.0 TOTAL IRON BINDING CAPACITY 308 ug/dL 250-450 (BEAKER) (test code = 769) IRON % SATURATION (2) (BEAKER) 32 % 20-55 (test code = 2590) Hourly Shift Manager ID - VINITA EPT/[id number] 17:08:00 Test Item Value Reference Range Interpretation [...] is2.5-3.5 for patients wiht mechanical heart valves.HEPATOBILIARY [id number] 15:52:00FINAL REPORT PROCEDURE: HEPATOBILIARY SCAN CPT CODE: 46129 INDICATION: epigastric pain, cholelithiasis PROTOCOL: 5.3 mCi [...] can not be excluded. Signed: Fariha Peralta MDReport Verified Date/Time: 07/07/2019 15:52:12 LIPASE 2019-07-07 14:35:00 Test Item Value Reference Range Interpretation Comments LIPASE (BEAKER) (test code = 749) 10 U/L 8-78 Hourly Shift Manager ID - NTPSpecimen slightly [id number] 14:35:00 Test Item Value Reference Range Interpretation Comments AMYLASE (BEAKER) (test code = 349) 62 U/L 25-125 Hourly Shift Manager ID - NTPSpecimen slightly ictericPOCT-GLUCOSE [id number] 12:18:00 Test Item Value Reference Range Interpretation Comments POC-GLUCOSE METER 82 mg/dL 70-110 : TESTED A T [facility] 6720 (BEAKER) (test code = [place], 1538) [address]: Hourly Shift Manager/Techni angelita ID = [id number] for ERWIN HARRISON COMPREHENSIVE METABOLIC [id number] 11:57:00 Test Item Value Reference Range Interpretation [...] S NOT APPLICABLE FOR DIALYSIS PATIEN TS. Hourly Shift Manager ID - JACOBY Kanecimen slightly ictericHEPATIC FUNCTION [id number] 11:57:00 Test Item Value Reference Range Interpretation [...] code = 777 U/L 6-55 H 347) Hourly Shift Manager ID - JACOBY MSpecimen slightly ictericCBC W/PLT COUNT & AUTO [id number] 11:39:00 Test Item Value Reference Range Interpretation [...] PERCENT (BEAKER) (test code = 2801) POCT-GLUCOSE [id number] 06:50:00 Test Item Value Reference Range Interpretation Comments POC-GLUCOSE METER 96 mg/dL 70-110 : TESTED A T [facility] 6720 (BEAKER) (test code = QU[place], 1538) [address]: Hourly Shift Manager/Techni angelita ID = [id number] for MARTELL WHITLOCK
--- NOTE | 2020-07-10 10:03 | RAD REPORT ---
EXAM DESCRIPTION: RAD - Chest Single View - 07/10/2020 9:54 am CLINICAL HISTORY: DYSPNEA Chest pain. COMPARISON: Chest Single View dated 07/06/2019; Chest Pa And Lat (2 Views) dated 04/29/2019; Chest Sing le View dated 12/07/2016; Chest Pa And Lat (2 Views) dated 02/12/2016 FINDINGS: Portable technique limits examination quality. Moderate bilateral pulmonary opacities are present likely representing pulmonary edema. The heart is mildly enlarged in size. No displaced fractures.
[2020-07-10 10:04] LABS: Absolute Lymphocytes (CBC) 1.1 K/uL (0.7-4.9); Basophils % 0.5 % (0-1.3); Lymphocytes % 12.2 % (15.3-44.8); MPV 10.5 fL (7.6-11.3); RBC Red Blood Cell Count 4.21 M/uL (3.86-4.86)
[2020-07-10 10:14] LABS: Protime INR 0.91
[2020-07-10] MEDS ORDERED: ACETAMINOPHEN 500 MG TAB ONE (10:16)
[2020-07-10] MEDS ORDERED: ONDANSETRON 4 MG/2 ML VIAL ONE (10:55)
[2020-07-10] MEDS ORDERED: MEPERIDINE HCL 25 MG/ML SYR ONE (10:57)
[2020-07-10] MEDS ORDERED: NA CHLORIDE 0.9% 1,000 ML ONE (11:13)
[2020-07-10 13:42] LABS: ALT/SGPT 40 U/L (12-78); AST/SGOT 34 U/L (15-37); Albumin 2.5 g/dL (3.4-5.0); BUN Blood Urea Nitrogen 5 mg/dL (7-18); Bicarbonate 21 mmol/L (21-32); Bilirubin Direct 0.2 mg/dL (0-0.2); Bilirubin Total 0.4 mg/dL (0.2-1.0); Ferritin 67.7 ng/mL (8-388); Glucose Level 78 mg/dL (74-106); Potassium 3.6 mmol/L (3.5-5.1); Protein, Total 6.8 g/dL (6.4-8.2); Sodium Level 140 mmol/L (136-145); Troponin (Emerg Dept Use Only) < 0.02 ng/mL (0.0-0.045)
--- NOTE | 2020-07-10 15:15 | RAD REPORT ---
EXAM DESCRIPTION: CT - Chest For Pe Angio - 07/10/2020 2:54 pm CLINICAL HISTORY: CHEST PAIN , COVID positive, 32 weeks COMPARISON: Chest Single View dated 07/10/2020 TECHNIQUE: Dynamically enhanced 3 mm thick images of the chest were obtained during administration o f approximately 150mL Isovue 370 IV contrast. Coronal and oblique MIP reconstruction images were gene rated and reviewed. Exam utilizes a protocol to evaluate the pulmonary arterial tree. Abdominal and pelvic wraparound shielding was utilized. All CT scans are performed using dose optimization technique as appropriate and may include automated exposure control or mA/KV adjustment according to patient size. FINDINGS: No pulmonary emboli are identified. Far peripheral branch assessment is limited due to con trast density and respiratory motion. Far peripheral embolic disease is felt to be very unlikely. The aorta as imaged shows no acute or suspicious finding. No pericardial thickening or effusion. Scattered airspace opacification is present in the lung suarez. This is a pattern well described in C OVID-19 pneumonia. This would be the single most likely etiology given the provided history. No pleur al effusion or pleural thickening. No mediastinal or hilar suspicious masses. No chest wall masses or abnormal axillary lymphadenopathy. IMPRESSION: No pulmonary emboli identified. Bilateral airspace opacification consistent with a mild COVID-19 pneumonia.
--- NOTE | 2020-07-10 16:00 | ER ---
Nurse's Notes [facility] Name: Melanie Paz Age: 30 yrs Sex: Female : 1990 Arrival Date: 07/10/2020 Time: 08:54 Bed 6 Private MD: Diagnosis: SARS-associated coronavirus as the cause of diseases classified elsewhere;Other viral pneumonia-covid 19 Presentation: 07/10 09:04 Coronavirus screen: Client presents with at least one sign or symptom that may indicate sv coronavirus-19. Standard/surgical mask placed on the client. Provider contacted for isolation considerations. Client reports previous positive COVID test result. Ebola Screen: No symptoms or risks identified at this time. Risk Assessment: Do you want to hurt yourself or someone else? Patient reports no desire to harm self or others. 09:04 Method Of Arrival: Ambulatory sv 09:04 Acuity: NEIL 2 sv 09:07 Initial Sepsis Screen: Does the patient meet any 2 criteria? HR > 90 bpm. No. Patient's hb initial sepsis screen is negative. Does the patient have a suspected source of infection? No. Patient's initial sepsis screen is negative. 09:08 Chief complaint: Patient states: SOB and upper chest wall pain since last week. COVID + sv on 07/03/20. Pt was cleared by the L\T\D department, pt is currently . Onset of symptoms was June 2020. Triage Assessment: 09:09 General: Appears in no apparent distress. uncomfortable, well developed, Behavior is sv calm, cooperative, appropriate for age. Pain: Complains of pain in anterior aspect of right upper chest and anterior aspect of left upper chest. Neuro: Level of Consciousness is awake, alert, obeys commands, Oriented to person, place, time, situation, Moves all extremities. Full function Gait is steady. Cardiovascular: Rhythm is sinus tachycardia. Respiratory: Reports shortness of breath cough that is non-productive, pain with cough Airway is patent Respiratory effort is even, unlabored, Respiratory pattern is symmetrical, tachypnea Onset: The symptoms/episode began/occurred last week, the patient has mild shortness of breath. Derm: Skin is intact, Skin is pink, warm \T\ dry. 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 - Social history:: Smoking status: Patient denies any tobacco usage or history of. Screenin:06 Abuse screen: Denies threats or abuse. Denies injuries from another. Nutritional hb screening: No deficits noted. Tuberculosis screening: No symptoms or risk factors identified. Fall Risk None identified. Assessment: 09:20 General: Appears mild distress. Behavior is cooperative. Pain: Pain currently is 5 out hb of 10 on a pain scale. Neuro: Level of Consciousness is awake, alert, obeys commands, Oriented to person, place, time, situation. Cardiovascular: Capillary refill < 3 seconds Patient's skin is warm and dry. Rhythm is sinus tachycardia. Respiratory: Reports shortness of breath at rest on exertion cough that is productive, Respiratory effort is mildly labored Respiratory pattern is regular. GI: No signs and/or symptoms were reported involving the gastrointestinal system. : No signs and/or symptoms were reported regarding the genitourinary system. EENT: No signs and/or symptoms were reported regarding the EENT system. Derm: Skin is pink, warm \T\ dry. Musculoskeletal: Reports body aches. 10:00 Reassessment: No changes from previously documented assessment. Patient and/or family hb updated on plan of care and expected duration. Pain level reassessed. 10:46 Reassessment: Pt c/o chest pressure 10/10, PA Kali notified, medicated as ordered. hb 13:10 Reassessment: Patient appears in no apparent distress at this time. No changes from sv previously documented assessment. Patient and/or family updated on plan of care and expected duration. Pain level reassessed. 14:37 Reassessment: Patient appears in no apparent distress at this time. Patient and/or hb family updated on plan of care and expected duration. Pain level reassessed. Patient is alert, oriented x 3, equal unlabored respirations, skin warm/dry/pink. 14:44 Reassessment: Patient appears in no apparent distress at this time. Patient and/or sv family updated on plan of care and expected duration. Pain level reassessed. Patient is alert, oriented x 3, equal unlabored respirations, skin warm/dry/pink. 15:49 Reassessment: Patient appears in no apparent distress at this time. Patient and/or hb family updated on plan of care and expected duration. Pain level reassessed. Patient is alert, oriented x 3, equal unlabored respirations, skin warm/dry/pink. Vital Signs: 09:07 BP 131 / 88; Pulse 105; Resp 30; Temp 99.4(O); Pulse Ox 100% on R/A; Pain 5/10; hb 10:13 BP 138 / 82; Pulse 109; Resp 19; Pulse Ox 100% on R/A; sv 11:39 BP 108 / 64; Pulse 92; Resp 26; Pulse Ox 99% ; sv 12:34 BP 103 / 56; Pulse 107; Resp 25; Pulse Ox 100% on R/A; sv 13:10 BP 119 / 80; Pulse 97; Resp 22; Pulse Ox 100% on R/A; sv 14:15 BP 115 / 72; Pulse 98; Resp 20; Pulse Ox 98% ; hb 15:30 BP 110 / 67; Pulse 97; Resp 19; Pulse Ox 97% on R/A; hb 16:21 BP 124 / 79; Pulse 102; Resp 23; Pulse Ox 100% ; sv ED Course: 08:26 EKG done, by ED staff, reviewed by Kali ADAIR. sv 08:54 Patient arrived in ED. ds1 09:02 Milly Villarreal, RN is Primary Nurse. sv 09:04 Arm band placed on. sv 09:05 Triage completed. sv 09:06 Kali Steve PA is PSYCHIATRICP. jr8 09:06 Christiano Goodman MD is Attending Physician. jr8 09:06 Patient has correct armband on for positive identification. Bed in low position. Call hb light in reach. Side rails up X 1. 09:11 Awaiting ED provider evaluation. sv 09:27 Initial lab(s) drawn, by me, sent to lab. First set of blood cultures drawn by me. kj1 Inserted saline lock: 22 gauge in left antecubital area, using aseptic technique. Blood collected. 09:31 Nurse Practitioner and/or Physician Copy Chaser to see patient. sv 09:39 Second set of blood cultures drawn. kj1 09:49 X-ray(s) taken. sv 09:54 CXR XRAY In Process Unspecified. EDMS 13:10 Awaiting lab results, Awaiting re-evaluation by ER provider. sv 14:[address] via wheelchair. sv 14:54 CT Chest For PE Angio In Process Unspecified. EDMS 16:33 No provider procedures requiring assistance completed. IV discontinued, intact, sv bleeding controlled, No redness/swelling at site. Pressure dressing applied. Administered Medications: 10:18 Drug: Tylenol 1000 mg Route: PO; ss 10:45 Follow up: Response: No adverse reaction sv 10:45 Drug: Demerol 12.5 mg Route: IVP; Site: left antecubital; hb 11:30 Follow up: Response: No adverse reaction; RASS: Alert and Calm (0) sv 10:45 Drug: Zofran (Ondansetron) 4 mg Route: IVP; Site: left antecubital; hb 11:30 Follow up: Response: No adverse reaction sv 10:55 Drug: NS 0.9% 1000 ml Route: IV; Rate: 1000 ml; Site: left antecubital; hb 12:00 Follow up: Response: No adverse reaction; IV Status: Completed infusion; IV Intake: sv 1000ml Intake: 12:00 IV: 1000ml; Total: 1000ml. sv Outcome: 15:58 Discharge ordered by . roman 16:33 Patient left the ED. hb 16:33 Discharged to home via wheelchair, done by Adilene MOSHER sv 16:33 Condition: stable 16:33 Discharge instructions given to patient, Instructed on discharge instructions, follow up and referral plans. Demonstrated understanding of instructions, follow-up care. Signatures: Dispatcher [employer] Milly Mendez RN RN Keesha Robles ds1 Emily Garcia RN RN Kali Steve PA PA jr8 Adilene Covarrubias RN RN hb Jackson, Kandis kj1 Corrections: (The following items were deleted from the chart) 09:08 09:07 Initial Sepsis Screen: Does the patient meet any 2 criteria? hb hb 09:10 09:07 BP 131 / 88; Pulse 105bpm; Resp 16bpm; Pulse Ox 100% RA; Temp 99.4F Oral; Pain hb 5/10; hb 09:11 09:04 Acuity: NEIL 3 sv sv 10:00 09:08 Chief complaint: Patient states: SOB and upper chest wall pain since last week. sv COVID + on 07/03/20. sv
--- NOTE | 2020-07-10 16:00 | EDPHYS ---
Physician Documentation [facility] Name: Melanie Paz Age: 30 yrs Sex: Female : 1990 Arrival Date: 07/10/2020 Time: 08:54 Bed 6 Private MD: ED Physician Christiano Goodman HPI: 07/10 09:33 This 30 yrs old Black Female presents to ER via Ambulatory with complaints of Shortness jr8 Of Breath, Cough. 09:33 The patient has shortness of breath at rest. Onset: The symptoms/episode began/occurred jr8 7 day(s) ago. Associated signs and symptoms: Pertinent positives: chest pain, non-productive cough. Pt reports Dx with COVID-19 7 days ago and presents with CP and SOB. She is 32 weeks and cleared by OB prior to arrival to ED. She denies any daily medication, ABx, steroids, or blood thinner use. . 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 - Social history:: Smoking status: Patient denies any tobacco usage or history of. ROS: 09:58 Neuro: Negative for headache, weakness, numbness, tingling, and seizure. jr8 09:58 Constitutional: Positive for body aches, fever. 09:58 Cardiovascular: Positive for chest pain. 09:58 Respiratory: Positive for shortness of breath, at rest. 09:58 Abdomen/GI: Positive for . 12:48 All other systems are negative. jr8 Exam: 12:48 ENT: Nares patent. No nasal discharge, no septal abnormalities noted. Tympanic jr8 membranes are normal and external auditory canals are clear. Oropharynx with no redness, swelling, or masses, exudates, or evidence of obstruction, uvula midline. Mucous membranes moist. Neck: Trachea midline, no thyromegaly or masses palpated, and no cervical lymphadenopathy. Supple, full range of motion without nuchal rigidity, or vertebral point tenderness. No Meningismus. Abdomen/GI: Soft, non-tender, with normal bowel sounds. No distension or tympany. No guarding or rebound. No evidence of tenderness throughout. Gravid in appearance 12:48 Back: No spinal tenderness. No costovertebral tenderness. Full range of motion. Skin: Warm, dry with normal turgor. Normal color with no rashes, no lesions, and no evidence of cellulitis. MS/ Extremity: Pulses equal, no cyanosis. Neurovascular intact. Full, normal range of motion. Neuro: Awake and alert, GCS 15, oriented to person, place, time, and situation. Cranial nerves II-XII grossly intact. Motor strength 5/5 in all extremities. Sensory grossly intact. Cerebellar exam normal. Normal gait. 12:48 Cardiovascular: Rate: tachycardic, Rhythm: regular, Pulses: Pulses are 2+ in right radial artery and left radial artery. Heart sounds: normal, normal S1and S2, no S3 or S4, no murmur, no rub, no gallop, Edema: is not appreciated, JVD: is not appreciated. Vital Signs: 09:07 BP 131 / 88; Pulse 105; Resp 30; Temp 99.4(O); Pulse Ox 100% on R/A; Pain 5/10; hb 10:13 BP 138 / 82; Pulse 109; Resp 19; Pulse Ox 100% on R/A; sv 11:39 BP 108 / 64; Pulse 92; Resp 26; Pulse Ox 99% ; sv 12:34 BP 103 / 56; Pulse 107; Resp 25; Pulse Ox 100% on R/A; sv 13:10 BP 119 / 80; Pulse 97; Resp 22; Pulse Ox 100% on R/A; sv 14:15 BP 115 / 72; Pulse 98; Resp 20; Pulse Ox 98% ; hb 15:30 BP 110 / 67; Pulse 97; Resp 19; Pulse Ox 97% on R/A; hb 16:21 BP 124 / 79; Pulse 102; Resp 23; Pulse Ox 100% ; sv MDM: 09:07 Patient medically screened. [facility] 10:02 Data reviewed: vital signs, nurses notes, lab test result(s), EKG, radiologic studies. jr8 Data interpreted: telemetry monitor: rate is 105 beats/min, Pulse oximetry: on room air is 100 %. Interpretation: normal. 12:48 Counseling: I had a detailed discussion with the patient and/or guardian regarding: the jr8 historical points, exam findings, and any diagnostic results supporting the discharge/admit diagnosis, lab results, radiology results. 16:06 ED course: Patient maintaining oxygen without any difficulty. Able to walk and get to [facility] bathroom just fine as well without desaturation. Discussed with mother and patient that at this time [facility] does not recommend steroids based on presentation. Will send home with return precautions. Mom and patient good with this . 07/10 09:13 Order name: Blood Culture Adult (2) [facility] 07/10 09:13 Order name: BMP [facility] 07/10 09:13 Order name: C-Reactive Protein [facility] 07/10 09:13 Order name: CBC with Diff; Complete Time: 10:05 [facility] 07/10 09:13 Order name: D-Dimer; Complete Time: 10:34 [facility] 07/10 09:13 Order name: Ferritin [facility] 07/10 09:13 Order name: Lactate; Complete Time: 10:34 [facility] 07/10 09:13 Order name: LFT's [facility] 07/10 09:13 Order name: Procalcitonin; Complete Time: 10:54 [facility] 07/10 09:13 Order name: PT-INR; Complete Time: 10:34 [facility] 07/10 09:13 Order name: Ptt, Activated; Complete Time: 10:34 [facility] 07/10 09:13 Order name: Troponin (emerg Dept Use Only) [facility] 07/10 09:13 Order name: CXR XRAY; Complete Time: 10:04 [facility] 07/10 09:13 Order name: EKG; Complete Time: 09:14 [facility] 07/10 09:13 Order name: Cardiac monitoring; Complete Time: 09:14 [facility] 07/10 09:13 Order name: Droplet/Contact Precautions; Complete Time: 09:15 [facility] 07/10 09:13 Order name: EKG - Nurse/Tech; Complete Time: 09:49 [facility] 07/10 09:13 Order name: IV Start; Complete Time: 09:49 [facility] 07/10 09:13 Order name: Labs collected and sent; Complete Time: 09:49 [facility] 07/10 09:13 Order name: O2 Per Protocol; Complete Time: 09:15 [facility] 07/10 09:13 Order name: O2 Sat Monitoring; Complete Time: 09:15 [facility] 07/10 14:30 Order name: CT Chest For PE Angio; Complete Time: 15:21 jr8 Administered Medications: 10:18 Drug: Tylenol 1000 mg Route: PO; ss 10:45 Follow up: Response: No adverse reaction sv 10:45 Drug: Demerol 12.5 mg Route: IVP; Site: left antecubital; hb 11:30 Follow up: Response: No adverse reaction; RASS: Alert and Calm (0) sv 10:45 Drug: Zofran (Ondansetron) 4 mg Route: IVP; Site: left antecubital; hb 11:30 Follow up: Response: No adverse reaction sv 10:55 Drug: NS 0.9% 1000 ml Route: IV; Rate: 1000 ml; Site: left antecubital; hb 12:00 Follow up: Response: No adverse reaction; IV Status: Completed infusion; IV Intake: sv 1000ml Disposition: 18:31 Co-signature as Attending Physician, Christiano Goodman MD I agree with the assessment and tw4 plan of care. Disposition: 07/10/20 15:58 Discharged to Home. Impression: SARS-associated coronavirus as the cause of diseases classified elsewhere, Other viral pneumonia - covid 19. - Condition is Stable. - Discharge Instructions: COVID-19. - Prescriptions for Vitamin 27- 0.8 mg Oral Tablet - take 1 tablet by ORAL route once daily; 60 tablet. - Medication Reconciliation Form, Thank You Letter, Antibiotic Education, Prescription Opioid Use form. - Follow up: Private Physician; When: 1 week; Reason: Recheck today's complaints, Continuance of care, Re-evaluation by your physician. - Problem is new. - Symptoms have improved. - Notes: Continue Vitamin C at home 2-3 grams per day Continue Prenatals at home as prescribed Tylenol for fevers and pain Watch for increased shortness of breath Signatures: Dispatcher [employer] EDOH Milly Villarreal RN RN Emily Garcia RN RN ss Roszak, Josh, PA PA jr8 Adilene Covarrubias RN RN hb Wadley, Terrence, MD MD tw4 Corrections: (The following items were deleted from the chart) 09:15 09:13 Adame ordered. jr8 sv 12:50 09:59 Cardiovascular: Regular rate and rhythm with a normal S1 and S2. No gallops, jr8 murmurs, or rubs. Normal PMI, no JVD. No pulse deficits. [facility] : 09:59 Chest/axilla: Inspection: normal, Palpation: is normal, [place] [id number] 12:50 09:59 Cardiovascular: Rate: normal, Rhythm: regular, Pulses: Pulses are 2+ in right jr8 radial artery and left radial artery. 8 : 09:59 Respiratory: mild respiratory distress is noted, Respirations: labored breathing, [facility] that is moderate, tachypnea, 28 Breath sounds: are clear throughout, Everywhere else , decreased breath sounds, that are mild, are heard in the left posterior lower lobe, [facility] : 09:59 Abdomen/GI: , [place] [id number] 12:51 10:02 Data reviewed: vital signs, nurses notes, lab test result(s), EKG, radiologic [facility] studies, [facility] : 10:02 Data interpreted: telemetry monitor: rate is 105 beats/min, Pulse oximetry: on room [facility] air is 100 %. Interpretation: normal. [facility] 16:33 15:58 07/10/2020 15:58 Discharged to Home. Impression: SARS-associated coronavirus as hb the cause of diseases classified elsewhere; Other viral pneumonia - covid 19. Condition is Stable. Forms are Medication Reconciliation Form, Thank You Letter, Antibiotic Education, Prescription Opioid Use. Follow up: Private Physician; When: 1 week; Reason: Recheck today's complaints, Continuance of care, Re-evaluation by your physician. Problem is new. Symptoms have improved. [facility]
[2020-07-10 16:47] VITALS: TEMP 99.4
[2020-07-10 16:55] VITALS: BP 124/79; O2SAT 100
== END 2020-07-10 16:33 | disposition home or self-care (01) ==
LOC: ER 08:53
DX: O98.513 Other viral diseases complicating pregnancy, third trimester (principal); O99.513 Diseases of the respiratory system complicating pregnancy, third trimester; U07.1 COVID-19; J12.82 Pneumonia due to coronavirus disease 2019; Z3A.32 32 weeks gestation of pregnancy
CPT/HCPCS: 96361; 93005; 87040 ×2; 85025; 80048; 36415; 85610; 85379; 80076; 83605; 85730; 84484; 82728; 84145; 86140; 71275; 71045; 96375; 96374; 99285; Q9967; J2175; J7030; J2405

== ENCOUNTER 2021-09-15 15:43 | Emergency (ER) | payer OTHER ==
--- OUTSIDE RECORDS SUMMARY | 2021-09-15 15:54 | XMS REPORT | Continuity of Care Document ---
:1990 Author Organization [facility] t Address [address] [place] [address] Care Team Providers Name Role Phone Oumou CAR Primary Care Physician Unavailable Yuliet RODRIGUEZ Attending Clinician Unavailable Josep LEONORA C Attending Clinician Oumou CAR Attending Clinician Unavailable Rg COLINDRES Attending Clinician Visit, Nurse Attending Clinician Unavailable Don COLINDRES Attending Clinician Dick COLINDRES Attending Clinician Clover COLINDRES PHD Attending Clinician Doctor Unassigned, Name Attending Clinician Unavailable Mauricio Redmond DO Attending Clinician Jennifer COLINDRES, M Attending Clinician Yg COLINDRES, Cam Attending Clinician Bina MOSHER, M Attending Clinician Unavailable Josiane FOUNTAIN, G Attending Clinician Singer RAUSCH Attending Clinician Ultrasound Attending Clinician Unavailable Trinh COLINDRES, R Attending Clinician 1, Us Room Attending Clinician Unavailable Ruy COLINDRES, F Attending Clinician Lab/Pedi Attending Clinician Unavailable Lisbet MSN, A Attending Clinician Faculty, [facility] Attending Clinician Unavailable Ruy COLINDRES, M Attending Clinician Donald Sweet MD Attending Clinician Lab Attending Clinician Unavailable Michael GUZMÁNP, N Attending Clinician [facility] Attending Clinician Unavailable Ilan JONES Attending Clinician Trimester, Res-1st Attending Clinician Unavailable Annamarie Lloyd Attending Clinician Jose COLINDRES, W Attending Clinician 3, Mfm Usg Room Attending Clinician Unavailable RG Admitting Clinician Unavailable Yolanda RODRIGUEZ Admitting Clinician Unavailable MERLIN BLUM Admitting Clinician Unavailable Rg COLINDRES Admitting Clinician Don COLINDRES Admitting Clinician Yolanda Rodriguez MD Admitting Clinician Merlin Blum MD Admitting Clinician OTTO VU Admitting Clinician Unavailable Payers Payer Name Policy Type Policy Number Effective Date Expiration Date Critical access hospital [id number] 2018 [facility] MEDICAID 00:00:00 Problems Condition Condition Condition Status Onset Resolution Last Treating Co mments Source Name Details Category Date Date Treatment Clinician Date Other Other Disease Active Univers general general 6-07 [place] of counseling [place] and advice and advice 00 Me dical for [facility] contracept contracept jc jc management management Well woman Well woman Disease Active U nivers exam exam 5-14 ity of 00:00: [address] S/P S/P Disease Active Univers primary primary 4-30 ity of low low 00:00: [place] transverse transverse 00 Me dical Bran ch Obesity Obesity Disease Active Univers (BMI (BMI 4-22 ity of 30-39.9) 30-39.9) 00:00: [address] 37 weeks 37 weeks Disease Active Unive rs gestation gestation 4-22 ity of of of 00:00: [place] 00 [facility] Morbid Morbid Disease Active 2021-0 Univers obesity obesity 4-22 it[place] of with body with body 00:[place] mass index mass index 00 Me dical of of Branch 40.0-49.9 40.0-49.9 31 weeks 31 weeks Disease Active Unive rs gestation gestation 3-11 ity of of of 00:00: [place] 00 Medi na Branch Back pain Back pain Disease Active Uni vers affecting affecting 3-11 it[place] of 00:[place] in third in third 00 Medica l trimester trimester Bran ch COVID-19 COVID-19 Disease Active Unive rs affecting affecting 3-11 ity of 00:[place] in third in third 00 Medica l trimester trimester Bran ch Obesity Obesity Disease Active Univers (BMI (BMI 3-05 ity of 30-39.9) 30-39.9) 00:00: [place] 00 Medical Branch Elevated Elevated Disease Active Unive rs blood blood 2-11 ity of pressure pressure 00:00: [place] reading reading 00 Medical without without Branch diagnosis diagnosis of of hypertensi hypertensi on on Anemia, Anemia, Disease Active Univers unspecifie unspecifie 1-28 it y of d d 00:00: [place] 00 Medical Branch Anemia of Anemia of Disease Active Uni vers mother in mother in 1-28 ity of , , 00:00[place] antepartum antepartum 00 Va dical Branch Carpal Carpal Disease Active 2019-04 Univers tunnel tunnel 2-30 ity of syndrome syndrome 00:00: [place] during during 00 Medical Bran ch Pain of Pain of Disease Active 2019-04 Univers round round 2-30 ity of ligament ligament 00:00: [place] during during 00 Medical Bran ch Vaginal Vaginal Disease Active 2019-04 Univers yeast yeast 1-02 ity of infection infection 00:00: [place] 00 Medical Branch UTI in UTI in Disease Active 2019-04 Overview: Univer s 0-05 negTOC ity of 00:00: [place] 00 Medical Branch Susceptibl Susceptibl Disease Active 2019-04 Overview : Univers e to e to 0-02 Address ity of varicella varicella 00:00: pp [place] sands (non-immun (non-immun 00 Me dical e), e), Branch currently currently Supervisio Supervisio Disease Active 2019-04 U nivers n of n of 0-01 ity of high-risk high-risk 00:00[place] 00 [facility] History of History of Disease Active 2019-04 U nivers miscarriag miscarriag 0-01 it y of e e 00:00: [place] [facility] Branch Flu Flu Disease Active 2019-04 Univers vaccine vaccine 0-01 ity of need need 00:00: [place] [facility] Branch Nausea and Nausea and Disease Active 2019-04 U nivers vomiting vomiting 0-01 ity of during during 00:00: [place] 00 [facility] Irregular Irregular Disease Active Uni vers menstrual menstrual 2-17 ity of cycle cycle 00:00: [place] [facility] Branch Other Other Disease Active Univers general general 2-17 ity of counseling counseling 00:00[place] and advice and advice 00 Va dical for for Branch contracept contracept jc jc management management ASCUS of ASCUS of Disease Active Overview: Un neris cervix cervix 9-16 12/2018 ity of with with 00:00: ASCUS and [place] negative negative 00 HPV Medica l high risk high risk negative, B ranch HPV HPV per ASCCP repeat pap in 3 years (2021) ASCUS of ASCUS of Disease Active Overview: Un neris cervix cervix 9-16 [place] ity of with with 00:00: g of this [place] negative negative 00 note Medica l high risk high risk might be Br anch HPV HPV different from the original. 12/2018 ASCUS and HPV negative, per ASCCP repeat pap in 3 years (2021) High risk High risk Disease Active Uni vers , , 8-30 it y of antepartum antepartum 00:00: [place] 00 [place] History of History of Disease Active U nivers prediabete prediabete 8-30 it y of s s 00:00: [place] [facility] Branch PCOS PCOS Disease Active Univers (polycysti (polycysti 8-30 it y of c ovarian c ovarian 00:00: [place] syndrome) syndrome) 00 [facility] Abnormal Abnormal Disease Active Unive rs urinalysis urinalysis 8-30 it y of 00:00: [place] [facility] Cessation Cessation Disease Active Uni vers of tobacco of tobacco 8-30 it y of use in use in 00:00: [place] previous previous 00 Medica l 12 months 12 months Bran ch Elevated Elevated Disease Active Unive rs BP without BP without 8-30 it y of diagnosis diagnosis 00:00[place] of of 00 Medical hypertensi hypertensi Br anch on on Obesity Obesity Disease Active Univers affecting affecting 8-30 ity of , , 00:00[place] antepartum antepartum 00 Me dical Branch BMI BMI Disease Active Univers 38.0-38.9, 38.0-38.9, 8-30 it y of adult adult 00:00: [place] 00 Medical Branch PCOS PCOS Disease Active Univers (polycysti (polycysti 8-30 it y of c ovarian c ovarian 00:00: [place] syndrome) syndrome) 00 Medi na Branch Obesity in Obesity in Disease Active U nivers 8-30 ity of 00:00: [place] 00 Medical Branch No known No known Disease Unive rs active active ity of problems problems [facility] Allergies, Adverse Reactions, Alerts Allergy Allergy Status Severity Reaction(s) Onset Inactive Treating Comm ents Source Name Type Date Date Clinician NO KNOWN Allergy Active [facility] NO KNOWN Drug Active [facility] ALLERGIE Class ity of S [facility] Social History Social Habit Start Date Stop Date Quantity Comments Source ASSERTION 2019-12-08 University of 00:00:00 [facility] Exposure to Not sure Sikes of SARS-CoV-2 [facility] (event) [place] Alcohol intake 2020-09-29 2020-09-29 Current drinker Unive rsity of 00:00:00 00:00:00 of alcohol [facility] (finding) Branch Tobacco use and 2020-09-29 2020-09-29 Never used Universit y of exposure 00:00:00 00:00:00 [facility] Tobacco Comment 2019-12-18 2019-12-18 vape Universit y of 00:00:00 00:00:00 [facility] Alcohol Comment 2019-12-18 2019-12-18 social Universit y of 00:00:00 00:00:00 [facility] History of 2018-10-22 Smoker University of tobacco use 00:00:00 [facility] [birth year] Universit y of 00:00:00 00:00:00 [facility] Smoking Status Start Date Stop Date Source Unknown if ever smoked [facility] y [facility] Current some day 2020-09-29 00:00:00 [facility] smoker [facility] Former smoker 2019-06-11 00:00:00 2019-06-11 00:00:00 [facility] Medications Ordered Filled Start Stop Current Ordering Indication Dosage Frequency Signature Comments Components Source Medication Medication Date Date Medication? Clinician (SIG) Name Name HYDROcodone 2020- No 1{tbl} 1 tablet, Univers -acetaminop 5-01 04-30 Oral, ity of hen (NORCO 00:30: 23:39 ONCE, 1 [place] 5) 5-325 mg 00 :00 dose, Fri Med ical tablet 1 08/22/20 at Branc h tablet 1930, Routine HYDROcodone 2020- No 1{tbl} 1 tablet, Univers -acetaminop 4-30 05- Oral, ity of hen (NORCO 23:57: 00:11 ONCE, 1 [place] 5) 5-325 mg 00 :00 dose, Fri Med ical tablet 1 08/22/20 at Branc h tablet 1900, Routine magnesium Yes [id number] 30mL Take 30 mL Univers hydroxide 4-25 by mouth ity of 400 mg/5 mL 00:00: once daily [place] suspension 00 as needed Medi na for Branch Constipati on. simethicone Yes [id number] 160mg Take 2 Univers 80 mg 4-25 tablets by ity of chewable 00:00: mouth [place] tablet 00 after Medical meals and Branch at bedtime as needed for Gas. Yes [id number] 1{tbl} Take 1 Univers vitamin 4-25 tablet by ity of w/FA tablet 00:00: mouth [place] 00 daily. Medical Branch docusate Yes [id number] 240mg Take 1 U nivers calcium 240 4-25 capsule by it y of mg capsule 00:00: mouth once [place] 00 daily as Medical needed for Branch Constipati on. ferrous Yes [id number] 325mg Take 1 Un neris sulfate 325 4-25 tablet by ity of mg (65 mg 00:00: mouth 2 [place] iron) 00 (two) Medical tablet times Branch daily. ibuprofen Yes [id number] 600mg Take 1 Univers 600 mg 4-25 tablet by ity of tablet 00:00: mouth [place] 00 every 6 Medical (six) Branch hours as needed (Pain). Take with food or milk. magnesium Yes [id number] 30mL Take 30 mL Univers hydroxide 4-25 by mouth ity of 400 mg/5 mL 00:00: once daily [place] suspension 00 as needed Medi na for Branch Constipati on. simethicone Yes [id number] 160mg Take 2 Univers 80 mg 4-25 tablets by ity of chewable 00:00: mouth [place] tablet 00 after Medical meals and Branch at bedtime as needed for Gas. Yes [id number] 1{tbl} Take 1 Univers vitamin 4-25 tablet by ity of w/FA tablet 00:00: mouth [place] 00 daily. Medical Branch docusate Yes [id number] 240mg Take 1 U nivers calcium 240 4-25 capsule by it y of mg capsule 00:00: mouth once [place] 00 daily as Medical needed for Branch Constipati on. ferrous Yes [id number] 325mg Take 1 Un neris sulfate 325 4-25 tablet by ity of mg (65 mg 00:00: mouth 2 [place] iron) 00 (two) Medical tablet times Branch daily. ibuprofen Yes [id number] 600mg Take 1 Univers 600 mg 4-25 tablet by ity of tablet 00:00: mouth [place] 00 every 6 Medical (six) Branch hours as needed (Pain). Take with food or milk. magnesium Yes [id number] 30mL Take 30 mL Univers hydroxide 4-25 by mouth ity of 400 mg/5 mL 00:00: once daily [place] suspension 00 as needed Medi na for Branch Constipati on. simethicone Yes [id number] 160mg Take 2 Univers 80 mg 4-25 tablets by ity of chewable 00:00: mouth [place] tablet 00 after Medical meals and Branch at bedtime as needed for Gas. Yes [id number] 1{tbl} Take 1 Univers vitamin 4-25 tablet by ity of w/FA tablet 00:00: mouth [place] 00 daily. Medical Branch docusate Yes [id number] 240mg Take 1 U nivers calcium 240 4-25 capsule by it y of mg capsule 00:00: mouth once [place] 00 daily as Medical needed for Branch Constipati on. ferrous Yes [id number] 325mg Take 1 Un neris sulfate 325 4-25 tablet by ity of mg (65 mg 00:00: mouth 2 [place] iron) 00 (two) Medical tablet times Branch daily. ibuprofen Yes [id number] 600mg Take 1 Univers 600 mg 4-25 tablet by ity of tablet 00:00: mouth [place] 00 every 6 Medical (six) Branch hours as needed (Pain). Take with food or milk. magnesium Yes [id number] 30mL Take 30 mL Univers hydroxide 4-25 by mouth ity of 400 mg/5 mL 00:00: once daily [place] suspension 00 as needed Medi na for Branch Constipati on. simethicone Yes [id number] 160mg Take 2 Univers 80 mg 4-25 tablets by ity of chewable 00:00: mouth [place] tablet 00 after Medical meals and Branch at bedtime as needed for Gas. Yes [id number] 1{tbl} Take 1 Univers vitamin 4-25 tablet by ity of w/FA tablet 00:00: mouth [place] 00 daily. Medical Branch docusate Yes [id number] 240mg Take 1 U nivers calcium 240 4-25 capsule by it y of mg capsule 00:00: mouth once [place] 00 daily as Medical needed for Branch Constipati on. ferrous Yes [id number] 325mg Take 1 Un neris sulfate 325 4-25 tablet by ity of mg (65 mg 00:00: mouth 2 [place] iron) 00 (two) Medical tablet times Branch daily. ibuprofen Yes [id number] 600mg Take 1 Univers 600 mg 4-25 tablet by ity of tablet 00:00: mouth [place] 00 every 6 Medical (six) Branch hours as needed (Pain). Take with food or milk. magnesium Yes [id number] 30mL Take 30 mL Univers hydroxide 4-25 by mouth ity of 400 mg/5 mL 00:00: once daily [place] suspension 00 as needed Medi na for Branch Constipati on. simethicone Yes [id number] 160mg Take 2 Univers 80 mg 4-25 tablets by ity of chewable 00:00: mouth [place] tablet 00 after Medical meals and Branch at bedtime as needed for Gas. Yes [id number] 1{tbl} Take 1 Univers vitamin 4-25 tablet by ity of w/FA tablet 00:00: mouth [place] 00 daily. Medical Branch docusate Yes [id number] 240mg Take 1 U nivers calcium 240 4-25 capsule by it y of mg capsule 00:00: mouth once [place] 00 daily as Medical needed for Branch Constipati on. ferrous Yes [id number] 325mg Take 1 Un neirs sulfate 325 4-25 tablet by ity of mg (65 mg 00:00: mouth 2 [place] iron) 00 (two) Medical tablet times Branch daily. ibuprofen Yes [id number] 600mg Take 1 Univers 600 mg 4-25 tablet by ity of tablet 00:00: mouth [place] 00 every 6 Medical (six) Branch hours as needed (Pain). Take with food or milk. magnesium Yes [id number] 30mL Take 30 mL Univers hydroxide 4-25 by mouth ity of 400 mg/5 mL 00:00: once daily [place] suspension 00 as needed Medi na for Branch Constipati on. simethicone Yes [id number] 160mg Take 2 Univers 80 mg 4-25 tablets by ity of chewable 00:00: mouth [place] tablet 00 after Medical meals and Branch at bedtime as needed for Gas. Yes [id number] 1{tbl} Take 1 Univers vitamin 4-25 tablet by ity of w/FA tablet 00:00: mouth [place] 00 daily. Medical Branch docusate Yes [id number] 240mg Take 1 U nivers calcium 240 4-25 capsule by it y of mg capsule 00:00: mouth once [place] 00 daily as Medical needed for Branch Constipati on. ferrous Yes [id number] 325mg Take 1 Un neris sulfate 325 4-25 tablet by ity of mg (65 mg 00:00: mouth 2 [place] iron) 00 (two) Medical tablet times Branch daily. ibuprofen Yes [id number] 600mg Take 1 Univers 600 mg 4-25 tablet by ity of tablet 00:00: mouth [place] 00 every 6 Medical (six) Branch hours as needed (Pain). Take with food or milk. magnesium Yes [id number] 30mL Take 30 mL Univers hydroxide 4-25 by mouth ity of 400 mg/5 mL 00:00: once daily [place] suspension 00 as needed Medi na for Branch Constipati on. simethicone Yes [id number] 160mg Take 2 Univers 80 mg 4-25 tablets by ity of chewable 00:00: mouth [place] tablet 00 after Medical meals and Branch at bedtime as needed for Gas. Yes [id number] 1{tbl} Take 1 Univers vitamin 4-25 tablet by ity of w/FA tablet 00:00: mouth [place] 00 daily. Medical Branch docusate Yes [id number] 240mg Take 1 U nivers calcium 240 4-25 capsule by it y of mg capsule 00:00: mouth once [place] 00 daily as Medical needed for Branch Constipati on. ferrous Yes [id number] 325mg Take 1 Un neris sulfate 325 4-25 tablet by ity of mg (65 mg 00:00: mouth 2 [place] iron) 00 (two) Medical tablet times Branch daily. ibuprofen Yes [id number] 600mg Take 1 Univers 600 mg 4-25 tablet by ity of tablet 00:00: mouth [place] 00 every 6 Medical (six) Branch hours as needed (Pain). Take with food or milk. Yes [id number] 1{tbl} Take 1 Univers vitamin 4-25 tablet by ity of w/FA tablet 00:00: mouth [place] 00 daily. Medical Branch 0 Yes [id number] 1{tbl} Take 1 Univers vitamin 4-25 tablet by ity of w/FA tablet 00:00: mouth [place] 00 daily. Medical Branch magnesium 202- No [id number] 30mL Take 30 mL Univers hydroxide 4-25 06-07 by mouth ity o f 400 mg/5 mL 00:00: 00:00 once daily [place] suspension 00 :00 as needed Medi na for Branch Constipati on. simethicone 2020- No [id number] 160mg Take 2 Univers 80 mg 4-25 06-07 tablets by ity of chewable 00:00: 00:00 mouth [place] tablet 00 :00 after Medical meals and Branch at bedtime as needed for Gas. docusate 2020- No [id number] 240mg Take 1 Univers calcium 240 4-25 06-07 capsule by i ty of mg capsule 00:00: 00:00 mouth once [place] 00 :00 daily as Medical needed for Branch Constipati on. ferrous 2020- No [id number] 325mg Take 1 U nivers sulfate 325 4-25 06-07 tablet by it y of mg (65 mg 00:00: 00:00 mouth 2 [place] iron) 00 :00 (two) Medical tablet times Branch daily. ibuprofen 2020- No [id number] 600mg Take 1 Univers 600 mg 4-25 06-07 tablet by ity of tablet 00:00: 00:00 mouth [place] 00 :00 every 6 Medical (six) Branch hours as needed (Pain). Take with food or milk. magnesium 2020- No [id number] 30mL Take 30 mL Univers hydroxide 4-25 06-07 by mouth ity o f 400 mg/5 mL 00:00: 00:00 once daily [place] suspension 00 :00 as needed Medi na for Branch Constipati on. simethicone 2020- No [id number] 160mg Take 2 Univers 80 mg 4-25 06-07 tablets by ity of chewable 00:00: 00:00 mouth [place] tablet 00 :00 after Medical meals and Branch at bedtime as needed for Gas. docusate 2020- No [id number] 240mg Take 1 Univers calcium 240 4-25 06-07 capsule by i ty of mg capsule 00:00: 00:00 mouth once [place] 00 :00 daily as Medical needed for Branch Constipati on. ferrous 2020- No [id number] 325mg Take 1 U nivers sulfate 325 4-25 06-07 tablet by it y of mg (65 mg 00:00: 00:00 mouth 2 [place] iron) 00 :00 (two) Medical tablet times Branch daily. ibuprofen 2020- No [id number] 600mg Take 1 Univers 600 mg 4-25 06-07 tablet by ity of tablet 00:00: 00:00 mouth [place] 00 :00 every 6 Medical (six) Branch hours as needed (Pain). Take with food or milk. HYDROcodone No [id number] 1{tbl} Take 1 U nivers -acetaminop 4-25 05-03 tablet by it y of hen 5-325 00:00: 04:59 mouth [place] mg tablet 00 :00 every 6 Medical (six) Branch hours as needed (Pain scale above 4) for up to 7 days. Do not exceed 3 grams of acetaminop hen in 24 hours. Indication s: acute pain HYDROcodone 2020- No 4647 1{tbl} Take 1 U nivers -acetaminop 4-25 05-03 tablet by it y of hen 5-325 00:00: 04:59 mouth [place] mg tablet 00 :00 every 6 Medical (six) Branch hours as needed (Pain scale above 4) for up to 7 days. Do not exceed 3 grams of acetaminop hen in 24 hours. Indication s: acute pain HYDROcodone No 4647 1{tbl} Take 1 U nivers -acetaminop 4-25 05-03 tablet by it y of hen 5-325 00:00: 04:59 mouth [place] mg tablet 00 :00 every 6 Medical (six) Branch hours as needed (Pain scale above 4) for up to 7 days. Do not exceed 3 grams of acetaminop hen in 24 hours. Indication s: acute pain HYDROcodone No 4647 1{tbl} Take 1 U nivers -acetaminop 4-25 05-03 tablet by it y of hen 5-325 00:00: 04:59 mouth [place] mg tablet 00 :00 every 6 Medical (six) Branch hours as needed (Pain scale above 4) for up to 7 days. Do not exceed 3 grams of acetaminop hen in 24 hours. Indication s: acute pain HYDROcodone No 4647 1{tbl} Take 1 U nivers -acetaminop 4-25 05-03 tablet by it y of hen 5-325 00:00: 04:59 mouth [place] mg tablet 00 :00 every 6 Medical (six) Branch hours as needed (Pain scale above 4) for up to 7 days. Do not exceed 3 grams of acetaminop hen in 24 hours. Indication s: acute pain ibuprofen Yes 600mg 600 mg, Univ ers (IBU) -24 Oral, Q6H, ity of tablet 600 05:00: First dose [place] mg 00 (after Medical last Branch modificati on) on 08/16/20 at 0000, Until Discontinu ed, Routine ibuprofen No 600mg 600 mg, Uni vers (IBU) 08-16 Oral, Q6H, ity of tablet 600 05:00: 22:02 First dose [place] mg 00 :18 (after Medical last Branch modificati on) on 08/16/20 at 0000, Until Discontinu ed, Routine HYDROcodone 2020- No 1{tbl} 1 tablet, Univers -acetaminop 08-16 Oral, ONCE i ty of hen (NORCO) 01:15: 00:21 NOW, 1 [place] as 10-325 mg 00 :00 dose, Fri Medic al tablet 1 08/15/20 at [facility] h tablet 2014, Routine rho(D) Yes 300ug 300 mcg, Univer s immune 08-15 Intramuscu ity of globulin 23:36: lar, ONCE, [place] as (RHOGAM) 44 For 1 Medical syringe 300 dose, Branch mcg Conditiona l, Routine rho(D) No 300ug 300 mcg, Unive rs immune 08-15 Intramuscu ity of globulin 23:36: 22:02 [place] ONCE, [place] (RHOGAM) 44 :18 For 1 Medical syringe 300 dose, Branch mcg Conditiona l, Routine simethicone Yes 160mg 160 mg, Un neris (GAS RELIEF 08-15 Oral, ity of (SIMETHICON 23:36: PC+HSPRN, [place] E)) 39 Starting Medical chewable Fri Branch tablet 160 08/15/20 at mg 1836, Until Discontinu ed, Routine, Gas simethicone 2020- No 160mg 160 mg, U nivers (GAS RELIEF 08-15 Oral, ity of (SIMETHICON 23:36: 22:02 PC+HSPRN, [place] E)) 39 :18 Starting Medical chewable Fri Branch tablet 160 08/15/20 at mg 1836, Until 08/17/20 at 1702, Routine, Gas human 2020-0 Yes .5mL 0.5 mL, Univers papillomav -23 Intramuscu ity of vac,9-ashlee(P 23:36: lar, [place] F) 38 ONCE-PRIOR Medical (GARDASIL-9 TO Branch ) syringe DISCHARGE, 0.5 mL 1 dose, Starting Tue08/15/20 at 1836, Until Discontinu ed, Routine, Give vaccine prior to discharge HYDROcodone 2020-0 Yes 2{tbl} 2 tablet, Univers -acetaminop 4-23 Oral, ity of hen (NORCO 23:36: Q6HPRN, [place] 5) 5-325 mg 38 Starting Medi na tablet 2 Fri Branch tablet 08/15/20 at 1836, Until Discontinu ed, Routine, Pain (scale 7-10), If uncontroll ed by Ibuprofen HYDROcodone 2020-0 Yes 1{tbl} 1 tablet, Univers -acetaminop 4-23 Oral, ity of hen (NORCO 23:36: Q6HPRN, [place] 5) 5-325 mg 38 Starting Medi na tablet 1 Fri Branch tablet 08/15/20 at 1836, Until Discontinu ed, Routine, Pain (scale 4-6), If uncontroll ed by Ibuprofen diphenhydrA 2020-0 Yes 25mg 25 mg, IV U nivers MINE-0.9 % 4-23 Piggyback, ity of sod.chlr 23:36: Administer [place] as (BENADRYL) 38 over 30 Medica l 25 mg/50 mL Minutes, Bran ch piggyback Q6HPRN, 1 25 mg dose, Starting Tue08/15/20 at 1836, Until Discontinu ed, Routine, Itching diphenhydrA 2020-0 Yes 25mg 25 mg, Univ ers MINE 4-23 Oral, ity of (BENADRYL) 23:36: Q6HPRN, [place] tablet 25 38 Starting Medica l mg Fri Branch 08/15/20 at 1836, Until Discontinu ed, Routine, Sleep, Itching ondansetron 2021-0 Yes 4mg 4 mg, Slow Univers (ZOFRAN 08-15 IV Push, ity of (PF)) 23:36: Q8HPRN, [place] injection 4 38 Starting Medi na mg Fri Branch 08/15/20 at 1836, Until Discontinu ed, Routine, Nausea and Vomiting (N/V) bisacodyL Yes 10mg 10 mg, Univer s (DULCOLAX) 08-15 Rectal, ity of suppository 23:36: QDAILYPRN, [place] 10 mg 38 Starting Medical Fri Branch 08/15/20 at 1836, Until Discontinu ed, Routine, Constipati on docusate Yes 240mg 240 mg, Unive rs calcium 08-15 Oral, ity of (SURFAK) 23:36: QDAILYPRN, [place] capsule 240 38 Starting Medi na mg Fri Branch 08/15/20 at 1836, Until Discontinu ed, Routine, Constipati on magnesium Yes 30mL 30 mL, Univer s hydroxide 08-15 Oral, ity of (MILK OF 23:36: QDAILYPRN, [place] as MAGNESIA) 38 Starting Medica l 400 mg/5 mL Fri Branch suspension 08/15/20 at 30 mL 1836, Until Discontinu ed, Routine, Constipati on human 2020- No .5mL 0.5 mL, [facility] papillomav 08-15 Intramuscu it y of vac,9-ashlee(P 23:36: 22:02 lar, [place] F) 38 :18 ONCE-PRIOR Medical (GARDASIL-9 TO Branch ) syringe DISCHARGE, 0.5 mL 1 dose, Starting Tue08/15/20 at 1836, Until 08/17/20 at 1702, Routine, Give vaccine prior to discharge HYDROcodone 2020- No 2{tbl} 2 tablet, Univers -acetaminop 08-15 Oral, ity of hen (NORCO 23:36: 22:02 Q6HPRN, [place] 5) 5-325 mg 38 :18 Starting Medi na tablet 2 Fri Branch tablet 08/15/20 at 1836, Until 08/17/20 at 1702, Routine, Pain (scale 7-10), If uncontroll ed by Ibuprofen HYDROcodone 2020- No 1{tbl} 1 tablet, Univers -acetaminop 08-15 Oral, ity of hen (NORCO 23:36: 22:02 Q6HPRN, [place] 5) 5-325 mg 38 :18 Starting Medi na tablet 1 Fri Branch tablet 08/15/20 at 1836, Until 08/17/20 at 1702, Routine, Pain (scale 4-6), If uncontroll ed by Ibuprofen diphenhydrA 2020- No 25mg 25 mg, IV [facility] MINE-0.9 % 08-15 Piggyback, it y of sod.chlr 23:36: 22:02 Administer [place] (BENADRYL) 38 :18 over 30 Medica l 25 mg/50 mL Minutes, Bran ch piggyback Q6HPRN, 1 25 mg dose, Starting 08/15/20 at 1836, Until 08/17/20 at 1702, Routine, Itching diphenhydrA No 25mg 25 mg, Uni vers MINE 08-15 Oral, ity of (BENADRYL) 23:36: 22:02 Q6HPRN, [place] tablet 25 38 :18 Starting Medica l mg Fri Branch 08/15/20 at 1836, Until 08/17/20 at 1702, Routine, Sleep, Itching ondansetron No 4mg 4 mg, Slow Univers (ZOFRAN 08-15 IV Push, ity of (PF)) 23:36: 22:02 Q8HPRN, [place] injection 4 38 :18 Starting Medi na mg Fri Branch 08/15/20 at 1836, Until 08/17/20 at 1702, Routine, Nausea and Vomiting (N/V) bisacodyL 2020- No 10mg 10 mg, Unive rs (DULCOLAX) 08-15 Rectal, ity o f suppository 23:36: 22:02 QDAILYPRN, [place] 10 mg 38 :18 Starting Medical Fri Branch 08/15/20 at 1836, Until 08/17/20 at 1702, Routine, Constipati on docusate 2021-0 2021- No 240mg 240 mg, Univ ers calcium 08-15 Oral, ity of (SURFAK) 23:36: 22:02 QDAILYPRN, [place] capsule 240 38 :18 Starting Medi na mg Fri Branch 08/15/20 at 1836, Until 08/17/20 at 1702, Routine, Constipati on magnesium 2020- No 30mL 30 mL, Unive rs hydroxide 08-15 Oral, ity of (MILK OF 23:36: 22:02 QDAILYPRN, [place] MAGNESIA) 38 :18 Starting Medica l 400 mg/5 mL Fri Branch suspension 08/15/20 at 30 mL 1836, Until 08/17/20 at 1702, Routine, Constipati on naloxone Yes .2mg 0.2 mg, Univer s (NARCAN) 08-15 Intramuscu ity o f injection 21:07: lar, [place] 0.2 mg 48 Q3HPRN, Medical Starting Branch 08/15/20 at 1607, Until Discontinu ed, Routine, Itching, PACU diphenhydrA Yes 25mg 25 mg, Univ ers MINE 08-15 Oral, ity of (BENADRYL) 21:07: Q4HPRN, [place] tablet 25 48 Starting Medica l mg Fri Branch 08/15/20 at 1607, Until Discontinu ed, Routine, Itching, PACU naloxone 2020- No .4mg 0.4 mg, Unive rs (NARCAN) 08-15 Slow IV ity of injection 21:07: 21:06 Push, PRN [place] 0.4 mg 48 :48 - SEE Medical INSTRUCTIO Branch NS, Starting 08/15/20 at 1607, Until 08/17/20 at 1606, Routine, Analgesia Recovery, PACU naloxone 2020- No .4mg 0.4 mg, Unive rs (NARCAN) 08-15 Slow IV ity of injection 21:07: 21:06 Push, PRN [place] 0.4 mg 48 :48 - SEE Medical INSTRUCTIO Branch , Starting Tue08/15/20 at 1607, Until Tue08/17/20 at 1606, Routine, Analgesia Recovery, PACU naloxone 2020- No .2mg 0.2 mg, Unive rs (NARCAN) 08-15 Intramuscu ity of injection 21:07: 22:02 lar, [place] 0.2 mg 48 :18 Q3HPRN, Medical Starting Branch 08/15/20 at 1607, Until 08/17/20 at 1702, Routine, Itching, PACU diphenhydrA 2020- No 25mg 25 mg, Uni vers MINE 08-15 Oral, ity of (BENADRYL) 21:07: 22:02 Q4HPRN, [place] tablet 25 48 :18 Starting Medica l mg Fri Branch 08/15/20 at 1607, Until Tue08/17/20 at 1702, Routine, Itching, PACU acetaminoph 2020- No 1000mg 1,000 mg, Univers en ADULT 08-15 IV ity of (OFIRMEV) 21:07: 00:08 Infusion, [place] injection 48 :46 Administer Medi na 1,000 mg over 15 Branch Minutes, Q6HPRN, Starting Tue08/15/20 at 1607, Until Tue08/15/20 at 1908, Routine, Pain (scale 7-10), PACU
In dication: Perioperat jc Patient ketorolac 2020- No 15mg 15 mg, Unive rs (TORADOL) 08-15 Slow IV ity of injection 21:07: 00:08 Push, [place] 15 mg 48 :46 Q6HPRN, 4 Medical doses, Branch Starting Tue08/15/20 at 1607, Until Tue08/15/20 at 1908, Routine, Pain (scale 1-3), PACU
Fa culty member approving Restricted medication : REAL NICHOLS midazolam 2020- No IV Push, Uni vers (VERSED) 08-15 ONCE INTRA ity of injection 20:11: 20:40 PROCEDURE, [place] 00 :50 Starting Medical Fri Branch 08/15/20 at 1511, Until Tue08/15/20 at 1540, Routine, Intra-op morpHINE PF 2020- No Epidural, Univers (DURAMORPH- 08-15 ONCE INTRA i ty of PF) 19:59: 20:40 PROCEDURE, [place] injection 00 :50 Starting Medica l Fri Branch 08/15/20 at 1459, Until Tue08/15/20 at 1540, Routine, Intra-op LR 1000 mL 2020- No IV Univer s + oxytocin 08-15 Infusion, ity of 20 units IV 19:50: 20:40 CONTINUOUS [place] Solution 00 :50 PRN, Medical Starting Branch 08/15/20 at 1450, Until 08/15/20 at 1540, JUMANA, Intra-op PHENYLephri 2020- No Slow IV Un neris ne 1000 08-15 Push, ONCE ity o f mcg/10 mL 19:36: 20:40 INTRA [place] in 0.9% 00 :50 PROCEDURE, Medica l NaCl Starting Branch syringe 08/15/20 at 1436, Until Tue08/15/20 at 1540, Routine, Intra-op lactated 2020- No IV Univers ringers IV 08-15 Infusion, ity of infusion 19:27: 20:40 CONTINUOUS [place] 00 :50 PRN, Medical Starting Branch 08/15/20 at 1427, Until Tue08/15/20 at 1540, Routine, Intra-op lidocaine 2020- No Epidural, Un neris 2% + 08-15 CONTINUOUS ity of epinephrine 19:20: 20:40 PRN, [place] 1:1000 + 00 :50 Starting Medical fentanyl 50 Fri Branch mcg/mL + 08/15/20 at sodium 1420, bicarb 8.4% Until Tue08/15/20 at 1540, Routine, Intra-op azithromyci 2020- No 500mg 500 mg, IV Univers n 08-15 Piggyback, ity of (ZITHROMAX) 19:07: 19:38 O.R. [place] 500 mg in 51 :00 HOLDING Medical NaCl 0.9% ONCE, 1 Branch (NS) 250 mL dose, VIAL-MATE Starting IV Fri piggyback 08/15/20 at 1407, Until Tue08/15/20 at 1438, 250 mL
Reas on for Anti-Infec tive: Surgical Prophylaxi s
Surgi na Prophylaxi s: GOODYEAR WELTER
Duration of therapy: within 24 hours of surgery
Reason for Anti-Infec tive: Surgical Prophylaxi s sodium 2020- No 30mL 30 mL, Univers citrate-cit 08-15 Oral, ity of precious acid 19:07: 19:17 PRE-PROCED [place] (BICITRA) 35 :00 URE ONCE, Medic al 500-334 1 dose, Branch mg/5 mL Starting solution 30 Fri mL 08/15/20 at 1407, Until Tue08/15/20 at 1417, Routine, Surgery ceFAZolin 2020- No 2000mg 2 g (2,000 Univers in dextrose 08-15 mg), IV ity of (iso-os) 19:07: 19:17 Piggyback, [place] (ANCEF) 2 35 :00 O.R. Medical gram/100 mL HOLDING Branc h Piggyback 2 ONCE, 1 g dose, Starting Tue08/15/20 at 1407, Until Tue08/15/20 at 1417, 100 mL
Reas on for Anti-Infec tive: Surgical Prophylaxi s
Surgi na Prophylaxi s: GOODYEAR WELTER
Duration of therapy: within 24 hours of surgery FENTanyl 2 2020- No Intra-op Un neris mcg/mL + 08-15 ity of bupivacaine 02:00: 20:40 [place] 0.1% in NS 00 :50 Medical 250 mL Branch epidural bag lidocaine-e 2020- No Intraderma Univers pinephrine 08-15 l, ONCE ity o f (XYLOCAINE 01:58: 20:40 INTRA [place] W/EPINEPHRI 00 :50 PROCEDURE, Va dical NE) 1.5 Starting Branch %-1:200,000 Day injection 08/14/20 at 2058, Until Tue08/15/20 at 1540, Routine, Intra-op proMETHazin 2020- No 25mg 25 mg, IV Univers e 08-15 Piggyback, ity of (PHENERGAN) 00:00: 00:36 ONCE, 1 [place] 25 mg in 00 :00 dose, Day Medica l NaCl 0.9% 08/14/20 at Bran ch (NS) 50 mL 1900, IV Routine piggyback nalbuphine No 10mg 10 mg, Univ ers (NUBAIN) 08-15 Intravenou ity of injection 00:00: 23:11 s, ONCE, 1 [place] 10 mg 00 :00 dose, Day Medical 08/14/20 at Branch 1900, Routine LR 1000 mL 2020- No 2mU/min 2-40 Uni vers + oxytocin 08-14 merlene-unit it y of 20 units IV 21:03: 23:36 s/min [place] Solution 22 :44 (6-120 Medical mL/hr), IV Branch Infusion, TITRATE, Oxytocin Induction / Augmentati on of Labor, Starting Day 08/14/20 at 1603
In fuse IV through a controlled infusion pump at a proximal port on the peripheral IV line.&nbsp ; Sta rt at 2 merlene-unit s/min and increase by 2 merlene-unit s/min every 20 minutes according to oxytocin policy 7.11.52.&n bsp; Going over 20 merlene-unit s/min requires faculty approval.& nbsp;&nbsp ;Max 40 merlnee-unit s/min.
D5W-LR IV 2020- No 1000mL at 125 Uni vers infusion 08-14 mL/hr, IV ity o f 1,000 mL 21:00: 23:36 Infusion, [place] 00 :44 CONTINUOUS Medical , Starting Branch Day 08/14/20 at 1600, Until 08/15/20 at 1836, Routine sodium No 30mL 30 mL, Univers citrate-cit 08-14 Oral, ity of precious acid 20:50: 01:31 PRE-PROCED [place] (BICITRA) 29 :00 URE ONCE, Medic al 500-334 1 dose, Branch mg/5 mL Starting solution 30 Day mL 08/14/20 at 1550, Until Discontinu ed, Routine, Surgery/Pr ocedure lactated 2020- No 500mL at 999 Unive rs ringers IV 08-14 04-23 mL/hr, 500 it y of infusion 20:50: 23:36 mL, IV [place] 500 mL 28 :44 Infusion, Medical PRN - SEE Branch INSTRUCTIO NS, Starting Day 08/14/20 at 1550, Until 08/15/20 at 1836, Routine ferrous Yes [id number] 325mg Take 1 Un neris sulfate 325 4-20 tablet by ity of mg (65 mg 00:00: mouth 2 [place] iron) 00 (two) Medical tablet times Branch daily. ferrous Yes [id number] 325mg Take 1 Un neris sulfate 325 4-20 tablet by ity of mg (65 mg 00:00: mouth 2 [place] iron) 00 (two) Medical tablet times Branch daily. ferrous Yes [id number] 325mg Take 1 Un neris sulfate 325 4-20 tablet by ity of mg (65 mg 00:00: mouth 2 [place] iron) 00 (two) Medical tablet times Branch daily. sodium 2020- No 30mL 30 mL, Univers citrate-cit 07-0311 Oral, ONCE i ty of precious acid 23:45: 22:33 NOW, 1 [place] (BICITRA) 00 :00 dose, [facility] Medic al 500-334 07/03/20 at [place] mg/5 mL 1745, solution 30 Routine mL metroNIDAZO 2020- No 500mg 500 mg, U nivers LE (FLAGYL) 3- 03-06 Oral, ONCE i ty of tablet 500 02:00: 01:57 NOW, 1 [place] mg 00 :00 dose, Fri Medical 06/27/20 at Branch 1999, Routine
Reason for Anti-Infec tive: Documented Infection< br>Documen pipo Infection Site: Pelvic
Duration of Therapy: Other (see Comments) metroNIDAZO Yes [id number] 500mg Take 2 Univers LE 250 mg 3-06 tablets by ity of tablet 00:00: mouth 2 [place] 00 (two) Medical times Branch daily. metroNIDAZO Yes [id number] 500mg Take 2 Univers LE 250 mg 3-06 tablets by ity of tablet 00:00: mouth 2 [place] 00 (two) Medical times Branch daily. metroNIDAZO Yes [id number] 500mg Take 2 Univers LE 250 mg 3-06 tablets by ity of tablet 00:00: mouth 2 [place] 00 (two) Medical times Branch daily. metroNIDAZO Yes [id number] 500mg Take 2 Univers LE 250 mg 3-06 tablets by ity of tablet 00:00: mouth 2 [place] 00 (two) Medical times Branch daily. metroNIDAZO Yes [id number] 500mg Take 2 Univers LE 250 mg 3-06 tablets by ity of tablet 00:00: mouth 2 [place] 00 (two) Medical times Branch daily. metroNIDAZO Yes [id number] 500mg Take 2 Univers LE 250 mg 3-06 tablets by ity of tablet 00:00: mouth 2 [place] 00 (two) Medical times Branch daily. metroNIDAZO Yes [id number] 500mg Take 2 [facility] LE 250 mg 3-06 tablets by ity of tablet 00:00: mouth 2 [place] 00 (two) Medical times Branch daily. metroNIDAZO Yes [id number] 500mg Take 2 [facility] LE 250 mg 3-06 tablets by ity of tablet 00:00: mouth 2 [place] 00 (two) Medical times Branch daily. metroNIDAZO 2020- No [id number] 500mg Take 2 Univers LE 250 mg 3-06 04-25 tablets by ity of tablet 00:00: 00:00 mouth 2 [place] 00 :00 (two) Medical times Branch daily. metroNIDAZO 202- No [id number] 500mg Take 2 Univers LE 250 mg 3-06 04-25 tablets by ity of tablet 00:00: 00:00 mouth 2 [place] 00 :00 (two) Medical times Branch daily. ascorbic 2020- Yes [id number] 500mg Take 1 U nivers acid, 1-28 tablet by ity of vitamin C, 00:00: mouth 3 [place] 500 mg 00 (three) Medical tablet times Branch daily. ferrous 2020- Yes [id number] 325mg Take 1 Un neris sulfate 325 1-28 tablet by ity of mg (65 mg 00:00: mouth 2 [place] iron) 00 (two) Medical tablet times Branch daily. ascorbic 2020-0 Yes [id number] 500mg Take 1 U nivers acid, 1-28 tablet by ity of vitamin C, 00:00: mouth 3 [place] 500 mg 00 (three) Medical tablet times Branch daily. ferrous Yes [id number] 325mg Take 1 Un neris sulfate 325 1-28 tablet by ity of mg (65 mg 00:00: mouth 2 [place] iron) 00 (two) Medical tablet times Branch daily. ascorbic Yes [id number] 500mg Take 1 U nivers acid, 1-28 tablet by ity of vitamin C, 00:00: mouth 3 [place] 500 mg 00 (three) Medical tablet times Branch daily. ferrous Yes [id number] 325mg Take 1 Un neris sulfate 325 1-28 tablet by ity of mg (65 mg 00:00: mouth 2 [place] iron) 00 (two) Medical tablet times Branch daily. ascorbic Yes [id number] 500mg Take 1 U nivers acid, 1-28 tablet by ity of vitamin C, 00:00: mouth 3 [place] 500 mg 00 (three) Medical tablet times Branch daily. ferrous Yes [id number] 325mg Take 1 Un neris sulfate 325 1-28 tablet by ity of mg (65 mg 00:00: mouth 2 [place] iron) 00 (two) Medical tablet times Branch daily. ascorbic Yes [id number] 500mg Take 1 U nivers acid, 1-28 tablet by ity of vitamin C, 00:00: mouth 3 [place] 500 mg 00 (three) Medical tablet times Branch daily. ferrous Yes [id number] 325mg Take 1 Un neris sulfate 325 1-28 tablet by ity of mg (65 mg 00:00: mouth 2 [place] iron) 00 (two) Medical tablet times Branch daily. ascorbic Yes [id number] 500mg Take 1 U nivers acid, 1-28 tablet by ity of vitamin C, 00:00: mouth 3 [place] 500 mg 00 (three) Medical tablet times Branch daily. ferrous Yes [id number] 325mg Take 1 Un neris sulfate 325 1-28 tablet by ity of mg (65 mg 00:00: mouth 2 [place] iron) 00 (two) Medical tablet times Branch daily. ascorbic Yes [id number] 500mg Take 1 U nivers acid, 1-28 tablet by ity of vitamin C, 00:00: mouth 3 [place] 500 mg 00 (three) Medical tablet times Branch daily. ferrous Yes [id number] 325mg Take 1 Un neris sulfate 325 1-28 tablet by ity of mg (65 mg 00:00: mouth 2 [place] iron) 00 (two) Medical tablet times Branch daily. ascorbic Yes [id number] 500mg Take 1 U nivers acid, 1-28 tablet by ity of vitamin C, 00:00: mouth 3 [place] 500 mg 00 (three) Medical tablet times Branch daily. ferrous Yes [id number] 325mg Take 1 Un neris sulfate 325 1-28 tablet by ity of mg (65 mg 00:00: mouth 2 [place] iron) 00 (two) Medical tablet times Branch daily. ascorbic Yes [id number] 500mg Take 1 U nivers acid, 1-28 tablet by ity of vitamin C, 00:00: mouth 3 [place] 500 mg 00 (three) Medical tablet times Branch daily. ferrous Yes [id number] 325mg Take 1 Un neris sulfate 325 1-28 tablet by ity of mg (65 mg 00:00: mouth 2 [place] iron) 00 (two) Medical tablet times Branch daily. ascorbic Yes [id number] 500mg Take 1 U nivers acid, 1-28 tablet by ity of vitamin C, 00:00: mouth 3 [place] 500 mg 00 (three) Medical tablet times Branch daily. ferrous Yes [id number] 325mg Take 1 Un neris sulfate 325 1-28 tablet by ity of mg (65 mg 00:00: mouth 2 [place] iron) 00 (two) Medical tablet times Branch daily. ascorbic Yes [id number] 500mg Take 1 U nivers acid, 1-28 tablet by ity of vitamin C, 00:00: mouth 3 [place] 500 mg 00 (three) Medical tablet times Branch daily. ferrous Yes [id number] 325mg Take 1 Un neris sulfate 325 1-28 tablet by ity of mg (65 mg 00:00: mouth 2 [place] iron) 00 (two) Medical tablet times Branch daily. ascorbic Yes [id number] 500mg Take 1 U nivers acid, 1-28 tablet by ity of vitamin C, 00:00: mouth 3 [place] 500 mg 00 (three) Medical tablet times Branch daily. ferrous Yes [id number] 325mg Take 1 Un neris sulfate 325 1-28 tablet by ity of mg (65 mg 00:00: mouth 2 [place] iron) 00 (two) Medical tablet times Branch daily. ascorbic Yes [id number] 500mg Take 1 U nivers acid, 1-28 tablet by ity of vitamin C, 00:00: mouth 3 [place] 500 mg 00 (three) Medical tablet times Branch daily. ferrous Yes [id number] 325mg Take 1 Un neris sulfate 325 1-28 tablet by ity of mg (65 mg 00:00: mouth 2 [place] iron) 00 (two) Medical tablet times Branch daily. ascorbic Yes [id number] 500mg Take 1 U nivers acid, 1-28 tablet by ity of vitamin C, 00:00: mouth 3 [place] 500 mg 00 (three) Medical tablet times Branch daily. ferrous Yes [id number] 325mg Take 1 Un neris sulfate 325 1-28 tablet by ity of mg (65 mg 00:00: mouth 2 [place] iron) 00 (two) Medical tablet times Branch daily. ascorbic Yes [id number] 500mg Take 1 U nivers acid, 1-28 tablet by ity of vitamin C, 00:00: mouth 3 [place] 500 mg 00 (three) Medical tablet times Branch daily. ferrous Yes [id number] 325mg Take 1 Un neris sulfate 325 1-28 tablet by ity of mg (65 mg 00:00: mouth 2 [place] iron) 00 (two) Medical tablet times Branch daily. ascorbic Yes [id number] 500mg Take 1 U nivers acid, 1-28 tablet by ity of vitamin C, 00:00: mouth 3 [place] 500 mg 00 (three) Medical tablet times Branch daily. ascorbic Yes [id number] 500mg Take 1 U nivers acid, 1-28 tablet by ity of vitamin C, 00:00: mouth 3 [place] 500 mg 00 (three) Medical tablet times Branch daily. ascorbic Yes [id number] 500mg Take 1 U nivers acid, 1-28 tablet by ity of vitamin C, 00:00: mouth 3 [place] 500 mg 00 (three) Medical tablet times Branch daily. ascorbic 2020- No [id number] 500mg Take 1 Univers acid, 05-22-25 tablet by ity of vitamin C, 00:00: 00:00 mouth 3 [place] 500 mg 00 :00 (three) Medical tablet times Branch daily. ascorbic 2020- No [id number] 500mg Take 1 Univers acid, 05-22-25 tablet by ity of vitamin C, 00:00: 00:00 mouth 3 [place] 500 mg 00 :00 (three) Medical tablet times Branch daily. ferrous 2020- No [id number] 325mg Take 1 U nivers sulfate 325 05-22 tablet by it y of mg (65 mg 00:00: 00:00 mouth 2 [place] iron) 00 :00 (two) Medical tablet times Branch daily. terconazole 2019-04- No [id number] 80mg Insert 1 Univers 80 mg 04-26 Suppositor ity of vaginal 00:00: 05:59 y into [place] suppository 00 :00 vagina at [facility] for 3 days. terconazole 2019-04- No [id number] 80mg Insert 1 Univers 80 mg 04-26 Suppositor ity of vaginal 00:00: 05:59 y into [place] suppository 00 :00 vagina at [facility] for 3 days. terconazole 2019-04- No [id number] 80mg Insert 1 Univers 80 mg 04-26 Suppositor ity of vaginal 00:00: 05:59 y into [place] suppository 00 :00 vagina at [facility] for 3 days. Nitrofurant 2019-04 Yes [id number] 100mg Take 1 Univers oin&Nit. 0-05 capsule by ity o f Macrocryst 00:00: mouth 2 [place] (MACROBID) 00 (two) Medical 100 mg times Branch capsule daily. Nitrofurant 2019-04 Yes [id number] 100mg Take 1 Univers oin&Nit. 0-05 capsule by ity o f Macrocryst 00:00: mouth 2 [place] (MACROBID) 00 (two) Medical 100 mg times Branch capsule daily. Nitrofurant 2020- Yes [id number] 100mg Take 1 Univers oin&Nit. 0-05 capsule by ity o f Macrocryst 00:00: mouth 2 [place] (MACROBID) 00 (two) Medical 100 mg times Branch capsule daily. Nitrofurant 2020- Yes [id number] 100mg Take 1 Univers oin&Nit. 0-05 capsule by ity o f Macrocryst 00:00: mouth 2 [place] (MACROBID) 00 (two) Medical 100 mg times Branch capsule daily. Nitrofurant 2019- Yes [id number] 100mg Take 1 Univers oin&Nit. 0-05 capsule by ity o f Macrocryst 00:00: mouth 2 [place] (MACROBID) 00 (two) Medical 100 mg times Branch capsule daily. Nitrofurant 2019- Yes [id number] 100mg Take 1 Univers oin&Nit. 0-05 capsule by ity o f Macrocryst 00:00: mouth 2 [place] (MACROBID) 00 (two) Medical 100 mg times Branch capsule daily. Nitrofurant 2019-04 Yes [id number] 100mg Take 1 Univers oin&Nit. 0-05 capsule by ity o f Macrocryst 00:00: mouth 2 [place] (MACROBID) 00 (two) Medical 100 mg times Branch capsule daily. Nitrofurant 2019- Yes [id number] 100mg Take 1 Univers oin&Nit. 0-05 capsule by ity o f Macrocryst 00:00: mouth 2 [place] (MACROBID) 00 (two) Medical 100 mg times Branch capsule daily. Nitrofurant 2020- Yes [id number] 100mg Take 1 Univers oin&Nit. 0-05 capsule by ity o f Macrocryst 00:00: mouth 2 [place] (MACROBID) 00 (two) Medical 100 mg times Branch capsule daily. Nitrofurant 2020- Yes [id number] 100mg Take 1 Univers oin&Nit. 0-05 capsule by ity o f Macrocryst 00:00: mouth 2 [place] (MACROBID) 00 (two) Medical 100 mg times Branch capsule daily. Nitrofurant 2020- Yes [id number] 100mg Take 1 Univers oin&Nit. 0-05 capsule by ity o f Macrocryst 00:00: mouth 2 [place] (MACROBID) 00 (two) Medical 100 mg times Branch capsule daily. Nitrofurant 2019-04 Yes [id number] 100mg Take 1 Univers oin&Nit. 0-05 capsule by ity o f Macrocryst 00:00: mouth 2 [place] (MACROBID) 00 (two) Medical 100 mg times Branch capsule daily. Nitrofurant 2019-04 Yes [id number] 100mg Take 1 Univers oin&Nit. 0-05 capsule by ity o f Macrocryst 00:00: mouth 2 [place] (MACROBID) 00 (two) Medical 100 mg times Branch capsule daily. Nitrofurant 2019-04 Yes [id number] 100mg Take 1 Univers oin&Nit. 0-05 capsule by ity o f Macrocryst 00:00: mouth 2 [place] (MACROBID) 00 (two) Medical 100 mg times Branch capsule daily. Nitrofurant 2019-04 Yes [id number] 100mg Take 1 Univers oin&Nit. 0-05 capsule by ity o f Macrocryst 00:00: mouth 2 [place] (MACROBID) 00 (two) Medical 100 mg times Branch capsule daily. Nitrofurant 2019-04 Yes [id number] 100mg Take 1 Univers oin&Nit. 0-05 capsule by ity o f Macrocryst 00:00: mouth 2 [place] (MACROBID) 00 (two) Medical 100 mg times Branch capsule daily. Nitrofurant 2019-04 Yes [id number] 100mg Take 1 Univers oin&Nit. 0-05 capsule by ity o f Macrocryst 00:00: mouth 2 [place] (MACROBID) 00 (two) Medical 100 mg times Branch capsule daily. Nitrofurant 2020- Yes [id number] 100mg Take 1 Univers oin&Nit. 0-05 capsule by ity o f Macrocryst 00:00: mouth 2 [place] (MACROBID) 00 (two) Medical 100 mg times Branch capsule daily. Nitrofurant 2019-04 Yes [id number] 100mg Take 1 Univers oin&Nit. 0-05 capsule by ity o f Macrocryst 00:00: mouth 2 [place] (MACROBID) 00 (two) Medical 100 mg times Branch capsule daily. Nitrofurant 2020- Yes [id number] 100mg Take 1 Univers oin&Nit. 0-05 capsule by ity o f Macrocryst 00:00: mouth 2 [place] (MACROBID) 00 (two) Medical 100 mg times Branch capsule daily. Nitrofurant 2019- Yes [id number] 100mg Take 1 Univers oin&Nit. 0-05 capsule by ity o f Macrocryst 00:00: mouth 2 [place] (MACROBID) 00 (two) Medical 100 mg times Branch capsule daily. Nitrofurant 2020- Yes [id number] 100mg Take 1 Univers oin&Nit. 0-05 capsule by ity o f Macrocryst 00:00: mouth 2 [place] (MACROBID) 00 (two) Medical 100 mg times Branch capsule daily. Nitrofurant 2019- Yes [id number] 100mg Take 1 Univers oin&Nit. 0-05 capsule by ity o f Macrocryst 00:00: mouth 2 [place] (MACROBID) 00 (two) Medical 100 mg times Branch capsule daily. Nitrofurant 2019-04 Yes [id number] 100mg Take 1 Univers oin&Nit. 0-05 capsule by ity o f Macrocryst 00:00: mouth 2 [place] (MACROBID) 00 (two) Medical 100 mg times Branch capsule daily. Nitrofurant 2019- Yes [id number] 100mg Take 1 Univers oin&Nit. 0-05 capsule by ity o f Macrocryst 00:00: mouth 2 [place] (MACROBID) 00 (two) Medical 100 mg times Branch capsule daily. Nitrofurant 2020- Yes [id number] 100mg Take 1 Univers oin&Nit. 0-05 capsule by ity o f Macrocryst 00:00: mouth 2 [place] (MACROBID) 00 (two) Medical 100 mg times Branch capsule daily. Nitrofurant 2020- Yes [id number] 100mg Take 1 Univers oin&Nit. 0-05 capsule by ity o f Macrocryst 00:00: mouth 2 [place] (MACROBID) 00 (two) Medical 100 mg times Branch capsule daily. Nitrofurant 2020- Yes [id number] 100mg Take 1 Univers oin&Nit. 0-05 capsule by ity o f Macrocryst 00:00: mouth 2 [place] (MACROBID) 00 (two) Medical 100 mg times Branch capsule daily. Nitrofurant 2019-04 Yes [id number] 100mg Take 1 Univers oin&Nit. 0-05 capsule by ity o f Macrocryst 00:00: mouth 2 [place] (MACROBID) 00 (two) Medical 100 mg times Branch capsule daily. Nitrofurant 2019-04 Yes [id number] 100mg Take 1 Univers oin&Nit. 0-05 capsule by ity o f Macrocryst 00:00: mouth 2 [place] (MACROBID) 00 (two) Medical 100 mg times Branch capsule daily. Nitrofurant 2019-04 Yes [id number] 100mg Take 1 Univers oin&Nit. 0-05 capsule by ity o f Macrocryst 00:00: mouth 2 [place] (MACROBID) 00 (two) Medical 100 mg times Branch capsule daily. Nitrofurant 2019-04 Yes [id number] 100mg Take 1 Univers oin&Nit. 0-05 capsule by ity o f Macrocryst 00:00: mouth 2 [place] (MACROBID) 00 (two) Medical 100 mg times Branch capsule daily. Nitrofurant 2019-04 Yes [id number] 100mg Take 1 Univers oin&Nit. 0-05 capsule by ity o f Macrocryst 00:00: mouth 2 [place] (MACROBID) 00 (two) Medical 100 mg times Branch capsule daily. Nitrofurant 2019-04 Yes [id number] 100mg Take 1 Univers oin&Nit. 0-05 capsule by ity o f Macrocryst 00:00: mouth 2 [place] (MACROBID) 00 (two) Medical 100 mg times Branch capsule daily. Nitrofurant 2019- Yes [id number] 100mg Take 1 [facility] oin&Nit. 0-05 capsule by [facility] [place] ([place] (two) Medical 100 mg times Branch capsule daily. Nitrofurant 2019-04 Yes [id number] 100mg Take 1 [facility] oin&Nit. 0-05 capsule by [facility] [place] ([place]CR[place] 00 (two) Medical 100 mg times Branch capsule daily. Nitrofurant 2019-04 Yes [id number] 100mg Take 1 [facility] oin&Nit. 0-05 capsule by [facility] [place] ([place]CR[place] 00 (two) Medical 100 mg times Branch capsule daily. Nitrofurant 2019-04 Yes [id number] 100mg Take 1 [facility] oin&Nit. 0-05 capsule by [facility] [place] ([place]CR[place]ID[place] 00 (two) Medical 100 mg times Branch capsule daily. Nitrofurant 2019-04- No [id number] 100mg Take 1 [facility] oin&Nit. 0-05 04-25 capsule by ity of Macrocryst 00:00: 00:00 mouth 2 [place] (MACROBID) 00 :00 (two) Medical 100 mg times Branch capsule daily. Nitrofurant 2019-04- No [id number] 100mg Take 1 [facility] oin&Nit. 0-05 04-25 capsule by ity of Macrocryst 00:00: 00:00 mouth 2 [place] (MACROBID) 00 :00 (two) Medical 100 mg times Branch capsule daily. 2019-04 Yes [id number] 1{tbl} Take 1 [facility] nivers multivitami 0-01 tablet by ity of n ( 00:00: mouth [place] VITAMIN) 00 daily. Medical tablet Branch 2019-04 Yes [id number] 1{tbl} Take 1 [facility] n[facility] multivitami 0-01 tablet by ity of n ( 00:00: mouth [place] VITAMIN) 00 daily. Medical tablet Branch proMETHazin 2019-04 Yes [id number] 25mg Take 1 [facility] e 25 mg 0-01 tablet by ity of tablet 00:00: mouth [place] 00 every 6 Medical (six) Branch hours as needed for Nausea and Vomiting (N/V). 2019-04 Yes [id number] 1{tbl} Take 1 [facility] nivers multivitami 0-01 tablet by ity of n ( 00:00: mouth [place] VITAMIN) 00 daily. Medical tablet Branch proMETHazin 2019-04 Yes [id number] 25mg Take 1 [facility] e 25 mg 0-01 tablet by ity of tablet 00:00: mouth [place] 00 every 6 Medical (six) Branch hours as needed for Nausea and Vomiting (N/V). 2019-04 Yes [id number] 1{tbl} Take 1 [facility] n[facility] multivitami 0-01 tablet by ity of n ( 00:00: mouth [place] VITAMIN) 00 daily. Medical tablet Branch proMETHazin 2019-04 Yes [id number] 25mg Take 1 [facility] e 25 mg 0-01 tablet by ity of tablet 00:00: mouth [place] 00 every 6 Medical (six) Branch hours as needed for Nausea and Vomiting (N/V). 2019-04 Yes [id number] 1{tbl} Take 1 [facility] nivers multivitami 0-01 tablet by ity of n ( 00:00: mouth [place] VITAMIN) 00 daily. Medical tablet Branch proMETHazin 2019-04 Yes [id number] 25mg Take 1 [facility] e 25 mg 0-01 tablet by ity of tablet 00:00: mouth [place] 00 every 6 Medical (six) Branch hours as needed for Nausea and Vomiting (N/V). 2019-04 Yes [id number] 1{tbl} Take 1 [facility] nivers multivitami 0-01 tablet by ity of n ( 00:00: mouth [place] VITAMIN) 00 daily. Medical tablet Branch proMETHazin 2019-04 Yes [id number] 25mg Take 1 [facility] e 25 mg 0-01 tablet by ity of tablet 00:00: mouth [place] 00 every 6 Medical (six) Branch hours as needed for Nausea and Vomiting (N/V). 2019-04 Yes [id number] 1{tbl} Take 1 [facility] nivers multivitami 0-01 tablet by ity of n ( 00:00: mouth [place] VITAMIN) 00 daily. Medical tablet Branch proMETHazin 2019-04 Yes [id number] 25mg Take 1 [facility] e 25 mg 0-01 tablet by ity of tablet 00:00: mouth [place] 00 every 6 Medical (six) Branch hours as needed for Nausea and Vomiting (N/V). 2019-04 Yes [id number] 1{tbl} Take 1 [facility] nivers multivitami 0-01 tablet by ity of n ( 00:00: mouth [place] VITAMIN) 00 daily. Medical tablet Branch proMETHazin 2019-04 Yes [id number] 25mg Take 1 [facility] e 25 mg 0-01 tablet by ity of tablet 00:00: mouth [place] 00 every 6 Medical (six) Branch hours as needed for Nausea and Vomiting (N/V). 2019-04 Yes [id number] 1{tbl} Take 1 [facility] nivers multivitami 0-01 tablet by ity of n ( 00:00: mouth [place] VITAMIN) 00 daily. Medical tablet Branch proMETHazin 2019-04 Yes [id number] 25mg Take 1 [facility] e 25 mg 0-01 tablet by ity of tablet 00:00: mouth [place] 00 every 6 Medical (six) Branch hours as needed for Nausea and Vomiting (N/V). 2019-04 Yes [id number] 1{tbl} Take 1 [facility] nivers multivitami 0-01 tablet by ity of n ( 00:00: mouth [place] VITAMIN) 00 daily. Medical tablet Branch proMETHazin 2019-04 Yes [id number] 25mg Take 1 [facility] e 25 mg 0-01 tablet by ity of tablet 00:00: mouth [place] 00 every 6 Medical (six) Branch hours as needed for Nausea and Vomiting (N/V). 2019-04 Yes [id number] 1{tbl} Take 1 [facility] n[facility] multivitami 0-01 tablet by ity of n ( 00:00: mouth [place] VITAMIN) 00 daily. Medical tablet Branch proMETHazin 2019-04 Yes [id number] 25mg Take 1 [facility] e 25 mg 0-01 tablet by ity of tablet 00:00: mouth [place] 00 every 6 Medical (six) Branch hours as needed for Nausea and Vomiting (N/V). 2019-04 Yes [id number] 1{tbl} Take 1 [facility] nivers multivitami 0-01 tablet by ity of n ( 00:00: mouth [place] VITAMIN) 00 daily. Medical tablet Branch proMETHazin 2019-04 Yes [id number] 25mg Take 1 [facility] e 25 mg 0-01 tablet by ity of tablet 00:00: mouth [place] 00 every 6 Medical (six) Branch hours as needed for Nausea and Vomiting (N/V). 2019-04 Yes [id number] 1{tbl} Take 1 [facility] nivers multivitami 0-01 tablet by ity of n ( 00:00: mouth [place] VITAMIN) 00 daily. Medical tablet Branch proMETHazin 2019-04 Yes [id number] 25mg Take 1 [facility] e 25 mg 0-01 tablet by ity of tablet 00:00: mouth [place] 00 every 6 Medical (six) Branch hours as needed for Nausea and Vomiting (N/V). 2019-04 Yes [id number] 1{tbl} Take 1 [facility] nivers multivitami 0-01 tablet by ity of n ( 00:00: mouth [place] VITAMIN) 00 daily. Medical tablet Branch proMETHazin 2019-04 Yes [id number] 25mg Take 1 [facility] e 25 mg 0-01 tablet by ity of tablet 00:00: mouth [place] 00 every 6 Medical (six) Branch hours as needed for Nausea and Vomiting (N/V). 2019-04 Yes [id number] 1{tbl} Take 1 [facility] nivers multivitami 0-01 tablet by ity of n ( 00:00: mouth [place] VITAMIN) 00 daily. Medical tablet Branch proMETHazin 2019-04 Yes [id number] 25mg Take 1 [facility] e 25 mg 0-01 tablet by ity of tablet 00:00: mouth [place] 00 every 6 Medical (six) Branch hours as needed for Nausea and Vomiting (N/V). 2019-04 Yes [id number] 1{tbl} Take 1 [facility] nivers multivitami 0-01 tablet by ity of n ( 00:00: mouth [place] VITAMIN) 00 daily. Medical tablet Branch proMETHazin 2019-04 Yes [id number] 25mg Take 1 [facility] e 25 mg 0-01 tablet by ity of tablet 00:00: mouth [place] 00 every 6 Medical (six) Branch hours as needed for Nausea and Vomiting (N/V). 2019-04 Yes [id number] 1{tbl} Take 1 [facility] nivers multivitami 0-01 tablet by ity of n ( 00:00: mouth [place] VITAMIN) 00 daily. Medical tablet Branch proMETHazin 2019-04 Yes [id number] 25mg Take 1 [facility] e 25 mg 0-01 tablet by ity of tablet 00:00: mouth [place] 00 every 6 Medical (six) Branch hours as needed for Nausea and Vomiting (N/V). 2019-04 Yes [id number] 1{tbl} Take 1 [facility] nivers multivitami 0-01 tablet by ity of n ( 00:00: mouth [place] VITAMIN) 00 daily. Medical tablet Branch proMETHazin 2019-04 Yes [id number] 25mg Take 1 [facility] e 25 mg 0-01 tablet by ity of tablet 00:00: mouth [place] 00 every 6 Medical (six) Branch hours as needed for Nausea and Vomiting (N/V). 2019-04 Yes [id number] 1{tbl} Take 1 [facility] nivers multivitami 0-01 tablet by ity of n ( 00:00: mouth [place] VITAMIN) 00 daily. Medical tablet Branch proMETHazin 2019-04 Yes [id number] 25mg Take 1 [facility] e 25 mg 0-01 tablet by ity of tablet 00:00: mouth [place] 00 every 6 Medical (six) Branch hours as needed for Nausea and Vomiting (N/V). 2019-04 Yes [id number] 1{tbl} Take 1 [facility] nivers multivitami 0-01 tablet by ity of n ( 00:00: mouth [place] VITAMIN) 00 daily. Medical tablet Branch proMETHazin 2019-04 Yes [id number] 25mg Take 1 [facility] e 25 mg 0-01 tablet by ity of tablet 00:00: mouth [place] 00 every 6 Medical (six) Branch hours as needed for Nausea and Vomiting (N/V). 2019-04 Yes [id number] 1{tbl} Take 1 [facility] nivers multivitami 0-01 tablet by ity of n ( 00:00: mouth [place] VITAMIN) 00 daily. Medical tablet Branch proMETHazin 2019-04 Yes [id number] 25mg Take 1 [facility] e 25 mg 0-01 tablet by ity of tablet 00:00: mouth [place] 00 every 6 Medical (six) Branch hours as needed for Nausea and Vomiting (N/V). 2019-04 Yes [id number] 1{tbl} Take 1 [facility] nivers multivitami 0-01 tablet by ity of n ( 00:00: mouth [place] VITAMIN) 00 daily. Medical tablet Branch proMETHazin 2019-04 Yes [id number] 25mg Take 1 [facility] e 25 mg 0-01 tablet by ity of tablet 00:00: mouth [place] 00 every 6 Medical (six) Branch hours as needed for Nausea and Vomiting (N/V). 2019-04 Yes [id number] 1{tbl} Take 1 [facility] nivers multivitami 0-01 tablet by ity of n ( 00:00: mouth [place] VITAMIN) 00 daily. Medical tablet Branch proMETHazin 2019-04 Yes [id number] 25mg Take 1 [facility] e 25 mg 0-01 tablet by ity of tablet 00:00: mouth [place] 00 every 6 Medical (six) Branch hours as needed for Nausea and Vomiting (N/V). 2019-04 Yes [id number] 1{tbl} Take 1 [facility] nivers multivitami 0-01 tablet by ity of n ( 00:00: mouth [place] VITAMIN) 00 daily. Medical tablet Branch proMETHazin 2019-04 Yes [id number] 25mg Take 1 [facility] e 25 mg 0-01 tablet by ity of tablet 00:00: mouth [place] 00 every 6 Medical (six) Branch hours as needed for Nausea and Vomiting (N/V). 2019-04 Yes [id number] 1{tbl} Take 1 [facility] nivers multivitami 0-01 tablet by ity of n ( 00:00: mouth [place] VITAMIN) 00 daily. Medical tablet Branch proMETHazin 2019-04 Yes [id number] 25mg Take 1 [facility] e 25 mg 0-01 tablet by ity of tablet 00:00: mouth [place] 00 every 6 Medical (six) Branch hours as needed for Nausea and Vomiting (N/V). 2019-04 Yes [id number] 1{tbl} Take 1 [facility] nivers multivitami 0-01 tablet by ity of n ( 00:00: mouth [place] VITAMIN) 00 daily. Medical tablet Branch proMETHazin 2019-04 Yes [id number] 25mg Take 1 [facility] e 25 mg 0-01 tablet by ity of tablet 00:00: mouth [place] 00 every 6 Medical (six) Branch hours as needed for Nausea and Vomiting (N/V). 2019-04 Yes [id number] 1{tbl} Take 1 [facility] nivers multivitami 0-01 tablet by ity of n ( 00:00: mouth [place] VITAMIN) 00 daily. Medical tablet Branch proMETHazin 2019-04 Yes [id number] 25mg Take 1 [facility] e 25 mg 0-01 tablet by ity of tablet 00:00: mouth [place] 00 every 6 Medical (six) Branch hours as needed for Nausea and Vomiting (N/V). 2019-04 Yes [id number] 1{tbl} Take 1 U nivers multivitami 0-01 tablet by ity of n ( 00:00: mouth [place] VITAMIN) 00 daily. Medical tablet Branch proMETHazin 2019-04 Yes [id number] 25mg Take 1 [facility] e 25 mg 0-01 tablet by ity of tablet 00:00: mouth [place] 00 every 6 Medical (six) Branch hours as needed for Nausea and Vomiting (N/V). 2019-04 Yes [id number] 1{tbl} Take 1 [facility] nivers multivitami 0-01 tablet by ity of n ( 00:00: mouth [place] VITAMIN) 00 daily. Medical tablet Branch proMETHazin 2019-04 Yes [id number] 25mg Take 1 [facility] e 25 mg 0-01 tablet by ity of tablet 00:00: mouth [place] 00 every 6 Medical (six) Branch hours as needed for Nausea and Vomiting (N/V). 2019-04 Yes [id number] 1{tbl} Take 1 U nivers multivitami 0-01 tablet by ity of n ( 00:00: mouth [place] VITAMIN) 00 daily. Medical tablet Branch proMETHazin 2019-04 Yes [id number] 25mg Take 1 [facility] e 25 mg 0-01 tablet by ity of tablet 00:00: mouth [place] 00 every 6 Medical (six) Branch hours as needed for Nausea and Vomiting (N/V). 2019-04 Yes [id number] 1{tbl} Take 1 [facility] nivers multivitami 0-01 tablet by ity of n ( 00:00: mouth [place] VITAMIN) 00 daily. Medical tablet Branch proMETHazin 2019-04 Yes [id number] 25mg Take 1 [facility] e 25 mg 0-01 tablet by ity of tablet 00:00: mouth [place] 00 every 6 Medical (six) Branch hours as needed for Nausea and Vomiting (N/V). 2019-04 Yes [id number] 1{tbl} Take 1 [facility] nivers multivitami 0-01 tablet by ity of n ( 00:00: mouth [place] VITAMIN) 00 daily. Medical tablet Branch proMETHazin 2019-04 Yes [id number] 25mg Take 1 [facility] e 25 mg 0-01 tablet by ity of tablet 00:00: mouth [place] 00 every 6 Medical (six) Branch hours as needed for Nausea and Vomiting (N/V). 2019-04 Yes [id number] 1{tbl} Take 1 U nivers multivitami 0-01 tablet by ity of n ( 00:00: mouth [place] VITAMIN) 00 daily. Medical tablet Branch proMETHazin 2019-04 Yes [id number] 25mg Take 1 [facility] e 25 mg 0-01 tablet by ity of tablet 00:00: mouth [place] 00 every 6 Medical (six) Branch hours as needed for Nausea and Vomiting (N/V). 2019-04 Yes [id number] 1{tbl} Take 1 U nivers multivitami 0-01 tablet by ity of n ( 00:00: mouth [place] VITAMIN) 00 daily. Medical tablet Branch proMETHazin 2019-04 Yes [id number] 25mg Take 1 [facility] e 25 mg 0-01 tablet by ity of tablet 00:00: mouth [place] 00 every 6 Medical (six) Branch hours as needed for Nausea and Vomiting (N/V). 2019-04 Yes [id number] 1{tbl} Take 1 U nivers multivitami 0-01 tablet by ity of n ( 00:00: mouth [place] VITAMIN) 00 daily. Medical tablet Branch proMETHazin 2019-04 Yes [id number] 25mg Take 1 [facility] e 25 mg 0-01 tablet by ity of tablet 00:00: mouth [place] 00 every 6 Medical (six) Branch hours as needed for Nausea and Vomiting (N/V). 2019-04 Yes [id number] 1{tbl} Take 1 U nivers multivitami 0-01 tablet by ity of n ( 00:00: mouth [place] VITAMIN) 00 daily. Medical tablet Branch proMETHazin 2019-04 Yes [id number] 25mg Take 1 [facility] e 25 mg 0-01 tablet by ity of tablet 00:00: mouth [place] 00 every 6 Medical (six) Branch hours as needed for Nausea and Vomiting (N/V). 2019-04 Yes [id number] 1{tbl} Take 1 U nivers multivitami 0-01 tablet by ity of n ( 00:00: mouth [place] VITAMIN) 00 daily. Medical tablet Branch proMETHazin 2019-04 Yes [id number] 25mg Take 1 [facility] e 25 mg 0-01 tablet by ity of tablet 00:00: mouth [place] 00 every 6 Medical (six) Branch hours as needed for Nausea and Vomiting (N/V). 2019-04 Yes [id number] 1{tbl} Take 1 U nivers multivitami 0-01 tablet by ity of n ( 00:00: mouth [place] VITAMIN) 00 daily. Medical tablet Branch proMETHazin 2019-04 Yes [id number] 25mg Take 1 [facility] e 25 mg 0-01 tablet by ity of tablet 00:00: mouth [place] 00 every 6 Medical (six) Branch hours as needed for Nausea and Vomiting (N/V). 2019-04 Yes [id number] 1{tbl} Take 1 U nivers multivitami 0-01 tablet by ity of n ( 00:00: mouth [place] VITAMIN) 00 daily. Medical tablet Branch proMETHazin 2019-04 Yes [id number] 25mg Take 1 [facility] e 25 mg 0-01 tablet by ity of tablet 00:00: mouth [place] 00 every 6 Medical (six) Branch hours as needed for Nausea and Vomiting (N/V). 2019-04 Yes [id number] 1{tbl} Take 1 U nivers multivitami 0-01 tablet by ity of n ( 00:00: mouth [place] VITAMIN) 00 daily. Medical tablet Branch proMETHazin 2019-04 Yes [id number] 25mg Take 1 [facility] e 25 mg 0-01 tablet by ity of tablet 00:00: mouth [place] 00 every 6 Medical (six) Branch hours as needed for Nausea and Vomiting (N/V). 2019-04- No [id number] 1{tbl} Take 1 [facility] multivitami 0-01 04-25 tablet by it y of n ( 00:00: 00:00 [place] VITAMIN[place] 00 :00 daily. Medical tablet Branch proMETHazin 2019-04- No [id number] 25mg Take 1 [facility] e 25 mg 0-01 04-25 tablet by ity of tablet 00:00: 00:00 mouth [place] 00 :00 every 6 Medical (six) Branch hours as needed for Nausea and Vomiting (N/V). 2019-04- No [id number] 1{tbl} Take 1 [facility] multivitami 0-01 04-25 tablet by it y of n ( 00:00: 00:00 [place] VITAMIN) 00 :00 daily. Medical tablet Branch proMETHazin 2019-04- No [id number] 25mg Take 1 [facility] e 25 mg 0-01 04-25 tablet by ity of tablet 00:00: 00:00 mouth [place] 00 :00 every 6 Medical (six) Branch hours as needed for Nausea and Vomiting (N/V). 2019- No Take by Univ ers vit 8-25 08-25 mouth. ity of calc,iron,f 14:16: 00:00 [place] olic 42 :00 Medical ( Branch VITAMIN ORAL) 2020-0 2020- No Take by Univ ers vit 8-25 08-25 mouth. ity of calc,iron,f 14:16: 00:00 [facility] 42 :00 Medical ( Branch VITAMIN ORAL) 2019-0 Yes Take by Unive rs vit 9-24 mouth. ity of calc,iron,f 16:51: [place] [address] Medical ( Branch VITAMIN ORAL) 2019-0 Yes Take by Unive rs vit 9-24 mouth. ity of calc,iron,f 16:51: [place] [address] Medical ( Branch VITAMIN ORAL) 2019-0 Yes Take by Unive rs vit 9-24 mouth. ity of calc,iron,f 16:51: [place] [address] Medical ( Branch VITAMIN ORAL) 2019-0 Yes Take by Unive rs vit 9-24 mouth. ity of calc,iron,f 16:51: [place] [address] Medical ( Branch VITAMIN ORAL) 2019-0 Yes Take by Unive rs vit 9-24 mouth. ity of calc,iron,f 16:51: [place] [address] Medical ( Branch VITAMIN ORAL) 2019-0 Yes Take by Unive rs vit 9-24 mouth. ity of calc,iron,f 16:51: [place] [address] Medical ( Branch VITAMIN ORAL) 2019-0 Yes Take by Unive rs vit 9-24 mouth. ity of calc,iron,f 16:51: [place] [address] Medical ( Branch VITAMIN ORAL) 2019-0 Yes Take by Unive rs vit 9-24 mouth. ity of calc,iron,f 16:51: [place] [address] Medical ( Branch VITAMIN ORAL) 2019-0 Yes Take by Unive rs vit 9-24 mouth. ity of calc,iron,f 16:51: [place] [address] Medical ( Branch VITAMIN ORAL) 2019-0 Yes Take by Unive rs vit 9-24 mouth. ity of calc,iron,f 16:51: [place] [address] Medical ( Branch VITAMIN ORAL) 2019-0 Yes Take by Unive rs vit 9-24 mouth. ity of calc,iron,f 16:51: [place] [address] Medical ( Branch VITAMIN ORAL) 2019-0 Yes Take by Unive rs vit 9-24 mouth. ity of calc,iron,f 16:51: [place] [address] Medical ( Branch VITAMIN ORAL) 2019-0 Yes Take by Unive rs vit 9-24 mouth. ity of calc,iron,f 16:51: [place] [address] Medical ( Branch VITAMIN ORAL) 2019-0 Yes Take by Unive rs vit 9-24 mouth. ity of calc,iron,f 16:51: [place] [address] Medical ( Branch VITAMIN ORAL) 2019-0 Yes Take by Unive rs vit 9-24 mouth. ity of calc,iron,f 16:51: [place] [address] Medical ( Branch VITAMIN ORAL) 2019-0 Yes Take by Unive rs vit 9-24 mouth. ity of calc,iron,f 16:51: [place] [address] Medical ( Branch VITAMIN ORAL) 2019-0 Yes Take by Unive rs vit 9-24 mouth. ity of calc,iron,f 16:51: [place] [address] Medical ( Branch VITAMIN ORAL) 2019-0 Yes Take by Unive rs vit 9-24 mouth. ity of calc,iron,f 16:51: [place] [address] Medical ( Branch VITAMIN ORAL) miSOPROStol 2018- 2019- No [id number] 800ug Univers (CYTOTEC) 01-05 ity of tablet 800 17:45: 16:45 [place] mcg 00 :00 [facility] ibuprofen 2018- 2019- No [id number] 800mg Un neris (IBU) 01-05 ity of tablet 800 17:45: 16:45 [place] mg 00 :00 [facility] ibuprofen 2019- No [id number] 800mg 800 mg, Univers (IBU) 01-05 Oral, ity of tablet 800 17:45: 16:45 ONCE, 1 [place] mg 00 :00 dose, [facility] 01/05/19 at Branch [facility], Routine miSOPROStol 2019- No [id number] 800ug 800 mcg, Univers (CYTOTEC) 01-05 Vaginal, ity o f tablet 800 17:45: 16:45 ONCE, 1 [place] mcg 00 :00 dose, [facility] 01/05/19 at [place] [address], Routine HYDROcodone 2018- Yes [id number] 1{tbl} Take 1 Univers -acetaminop 9-13 tablet by ity of hen 5-325 00:00: mouth [place] mg tablet 00 every 6 Medical (six) Branch hours as needed for Pain (scale 4-6) or Pain (scale 7-10). ibuprofen Yes [id number] 800mg Take 1 U nivers 800 mg 9-13 tablet by ity of tablet 00:00: mouth [place] 00 every 8 Medical (eight) Branch hours as needed (prn pain). HYDROcodone Yes [id number] 1{tbl} Take 1 Univers -acetaminop 9-13 tablet by ity of hen 5-325 00:00: mouth [place] mg tablet 00 every 6 Medical (six) Branch hours as needed for Pain (scale 4-6) or Pain (scale 7-10). ibuprofen Yes [id number] 800mg Take 1 U nivers 800 mg 9-13 tablet by ity of tablet 00:00: mouth [place] 00 every 8 Medical (eight) Branch hours as needed (prn pain). HYDROcodone Yes [id number] 1{tbl} Take 1 Univers -acetaminop 9-13 tablet by ity of hen 5-325 00:00: mouth [place] mg tablet 00 every 6 Medical (six) Branch hours as needed for Pain (scale 4-6) or Pain (scale 7-10). ibuprofen Yes [id number] 800mg Take 1 U nivers 800 mg 9-13 tablet by ity of tablet 00:00: mouth [place] 00 every 8 Medical (eight) Branch hours as needed (prn pain). HYDROcodone Yes [id number] 1{tbl} Take 1 Univers -acetaminop 9-13 tablet by ity of hen 5-325 00:00: mouth [place] mg tablet 00 every 6 Medical (six) Branch hours as needed for Pain (scale 4-6) or Pain (scale 7-10). ibuprofen Yes [id number] 800mg Take 1 U nivers 800 mg 9-13 tablet by ity of tablet 00:00: mouth [place] 00 every 8 Medical (eight) Branch hours as needed (prn pain). miSOPROStol 2018- No 800ug Univ ers (CYTOTEC) 01-02 ity of tablet 800 17:00: 04:59 [place] mcg 00 :00 Medical Branch ibuprofen 2019- No 800mg Univer s (IBU) 01-02 ity of tablet 800 17:00: 04:59 [place] mg 00 :00 Medical Branch miSOPROStol 2019- No 800ug Univ ers (CYTOTEC) 01-02 ity of tablet 800 17:00: 16:00 [place] mcg 00 :00 Medical Branch ibuprofen 2019- No 800mg Univer s (IBU) 01-02 ity of tablet 800 17:00: 16:00 [place] mg 00 :00 Medical Branch ibuprofen 2019- No 800mg 800 mg, Uni vers (IBU) 01-02 Oral, ity of tablet 800 17:00: 16:00 ONCE, 1 [place] mg 00 :00 dose, [facility] 01/02/19 at Branch 1200, Routine miSOPROStol 2019- No 800ug 800 mcg, Univers (CYTOTEC) 01-02 Vaginal, ity o f tablet 800 17:00: 16:00 ONCE, 1 [place] mcg 00 :00 dose, [facility] 01/02/19 at [place] [address], Routine ibuprofen Yes [id number] 800mg Take 1 U nivers 800 mg 9-10 tablet by ity of tablet 00:00: mouth [place] 00 every 8 Medical (eight) Branch hours as needed (prn pain). HYDROcodone Yes [id number] 1{tbl} Take 1 Univers -acetaminop 9-10 tablet by ity of hen 5-325 00:00: mouth [place] mg tablet 00 every 6 Medical (six) Branch hours as needed for Pain (scale 4-6) or Pain (scale 7-10). ibuprofen Yes [id number] 800mg Take 1 U nivers 800 mg 9-10 tablet by ity of tablet 00:00: mouth [place] 00 every 8 Medical (eight) Branch hours as needed (prn pain). HYDROcodone Yes [id number] 1{tbl} Take 1 Univers -acetaminop 9-10 tablet by ity of hen 5-325 00:00: mouth [place] mg tablet 00 every 6 Medical (six) Branch hours as needed for Pain (scale 4-6) or Pain (scale 7-10). ibuprofen 2019- No [id number] 800mg Take 1 [facility] 800 mg 01-02 tablet by ity of tablet 00:00: 00:00 mouth [place] 00 :00 every 8 Medical (eight) Branch hours as needed (prn pain). HYDROcodone 2019- No [id number] 1{tbl} Take 1 Univers -acetaminop -01-05 tablet by it y of hen 5-325 00:00: 00:00 mouth [place] mg tablet 00 :00 every 6 Medical (six) Branch hours as needed for Pain (scale 4-6) or Pain (scale 7-10). sulfamethox 2019- No [id number] 1{tbl} Take 1 Univers azole-trime -08 01- tablet by it y of thoprim 00:00: 04:59 mouth 2 [place] (BACTRIM 00 :00 (two) Medical DS) 800-160 times Branch mg per daily for tablet 3 days. sulfamethox 2019- No [id number] 1{tbl} Take 1 Univers azole-trime -12-31 tablet by it y of thoprim 00:00: 04:59 mouth 2 [place] (BACTRIM 00 :00 (two) Medical DS) 800-160 times Branch mg per daily for tablet 3 days. 2019-0 Yes Take by Unive rs vit 8-30 mouth. ity of calc,iron,f 19:42: [address] ( Branch VITAMIN ORAL) 2019-0 Yes Take by Unive rs vit 8-30 mouth. ity of calc,iron,f 19:42: [place] [address] Medical ( Branch VITAMIN ORAL) 2019-0 Yes Take by Unive rs vit 8-30 mouth. ity of calc,iron,f 19:42: [place] [address] Medical ( Branch VITAMIN ORAL) 2019-0 Yes Take by Unive rs vit 8-30 mouth. ity of calc,iron,f 19:42: [place] [address] Medical ( Branch VITAMIN ORAL) 2019-0 Yes Take by Unive rs vit 8-30 mouth. ity of calc,iron,f 19:42: [place] [address] Medical ( Branch VITAMIN ORAL) 2019-0 Yes Take by Unive rs vit 8-30 mouth. ity of calc,iron,f 19:42: [place] [address] Medical ( Branch VITAMIN ORAL) 2019-0 Yes Take by Unive rs vit 8-30 mouth. ity of calc,iron,f 19:42: [place] [address] Medical ( Branch VITAMIN ORAL) 2019-0 Yes Take by Unive rs vit 8-30 mouth. ity of calc,iron,f 19:42: [place] [address] Medical ( Branch VITAMIN ORAL) [id number] Yes Take by Unive rs vit 8-30 mouth. ity of calc,iron,f 19:42: [place] [address] Medical ( Branch VITAMIN ORAL) [id number] Yes Take by Unive rs vit 8-30 mouth. ity of calc,iron,f 19:42: [place] [address] Medical ( Branch VITAMIN ORAL) [id number] Yes Take by Unive rs vit 8-30 mouth. ity of calc,iron,f 19:42: [place] [address] Medical ( Branch VITAMIN ORAL) traMADOL Yes [id number] 50mg Take 1 Un neris (ULTRAM) 50 2-03 tablet by ity of mg tablet 00:00: mouth [place] 00 every 6 Medical (six) Branch hours as needed for Pain (scale 4-6). cyclobenzap Yes [id number] 5mg Take 1 Univers rine 5 mg 2-03 tablet by ity o f tablet 00:00: mouth 3 [place] 00 (three) Medical times Branch daily. traMADOL 2019- No [id number] 50mg Take 1 U nivers (ULTRAM) 50 2-03 08-30 tablet by it y of mg tablet 00:00: 00:00 mouth [place] 00 :00 every 6 Medical (six) Branch hours as needed for Pain (scale 4-6). cyclobenzap 2019- No [id number] 5mg Take 1 Univers rine 5 mg 2-03 08-30 tablet by ity of tablet 00:00: 00:00 mouth 3 [place] 00 :00 (three) Medical times Branch daily. No known No Univers medications ity of [facility] Immunizations Ordered Filled Immunization Date Status Comments [facility] e Immunization Name Name TDAP 2020-06-19 Completed [facility] 00:00:00 [facility] TDAP 2020-06-19 Completed [facility] of 00:00:00 [facility] TDAP 2020-06-19 Completed University of 00:00:00 [facility] TDAP 2020-06-19 Completed University of 00[facility]00:00 [facility] TDAP 2020-06-19 Completed University of 00:00:00 [facility] TDAP 2020-06-19 Completed [facility] of 00[facility]00:00 [facility] TDAP 2020-06-19 Completed [facility] of 00[facility]00:00 [facility] TDAP 2020-06-19 Completed [facility] of 00:00:00 [facility] TDAP 2020-06-19 Completed University of 00:00:00 [facility] TDAP 2020-06-19 Completed [facility] of 00[facility]00:00 [facility] TDAP 2020-06-19 Completed [facility] of 00:00:00 [facility] TDAP 2020-06-19 Completed [facility] of 00[facility]00:00 [facility] TDAP 2020-06-19 Completed [facility] of 00:00:00 [facility] TDAP 2020-06-19 Completed [facility] of 00:00:00 [facility] TDAP 2020-06-19 Completed [facility] of 00:00:00 [facility] TDAP 2020-06-19 Completed [facility] of 00[facility]00:00 [facility] TDAP 2020-06-19 Completed [facility] of 00:00:00 [facility] TDAP 2020-06-19 Completed [facility] of 00:00:00 [facility] TDAP 2020-06-19 Completed [facility] of 00:00:00 [facility] TDAP 2020-06-19 Completed [facility] of 00:00:00 [facility] TDAP 2020-06-19 Completed [facility] of 00:00:00 [facility] TDAP 2020-06-19 Completed [facility] of 00:00:00 [facility] Influenza Virus 2020-01-24 Completed [facility] .5 mL 00:00:00 [facility] Influenza Virus 2020-01-24 Completed [facility] .5 mL 00:00:00 [facility] Influenza Virus 2020-01-24 Completed [facility] .5 mL 00:00:00 [facility] Influenza Virus 2020-01-24 Completed [facility]5 mL 00:00:00 [facility] Influenza Virus 2020-01-24 Completed [facility] .5 mL 00:00:00 [facility] Influenza Virus 2020-01-24 Completed [facility] .5 mL 00:00:00 [facility] Influenza Virus 2020-01-24 Completed [facility] .5 mL 00:00:00 [facility] Influenza Virus 2020-01-24 Completed [facility]5 mL 00:00:00 [facility] Influenza Virus 2020-01-24 Completed [facility] .5 mL 00:00:00 [facility] Influenza Virus 2020-01-24 Completed [facility] .5 mL 00:00:00 [facility] Influenza Virus 2020-01-24 Completed [facility] .5 mL 00:00:00 [facility] Influenza Virus 2020-01-24 Completed [facility] .5 mL 00:00:00 [facility] Influenza Virus 2020-01-24 Completed [facility]5 mL 00:00:00 [facility] Influenza Virus 2020-01-24 Completed [facility]5 mL 00:00:00 [facility] Influenza Virus 2020-01-24 Completed [facility]5 mL 00:00:00 [facility] Influenza Virus 2020-01-24 Completed [facility] .5 mL 00:00:00 [facility] Influenza Virus 2020-01-24 Completed [facility]5 mL 00:00:00 [facility] Influenza Virus 2020-01-24 Completed [facility]5 mL 00:00:00 [facility] Influenza Virus 2020-01-24 Completed [facility]5 mL 00:00:00 [facility] Influenza Virus 2020-01-24 Completed [facility]5 mL 00:00:00 [facility] Influenza Virus 2020-01-24 Completed [facility] .5 mL 00:00:00 [facility] Influenza Virus 2020-01-24 Completed [facility]5 mL 00:00:00 [facility] Influenza Virus 2020-01-24 Completed [facility]5 mL 00:00:00 [facility] Influenza Virus 2020-01-24 Completed [facility] .5 mL 00:00:00 [facility] Influenza Virus 2020-01-24 Completed [facility] .5 mL 00:00:00 [facility] Influenza Virus 2020-01-24 Completed [facility]5 mL 00:00:00 [facility] Influenza Virus 2020-01-24 Completed [facility]5 mL 00:00:00 [facility] Influenza Virus 2020-01-24 Completed [facility]5 mL 00:00:00 [facility] Influenza Virus 2020-01-24 Completed [facility]5 mL 00:00:00 [facility] Influenza Virus 2020-01-24 Completed [facility]5 mL 00:00:00 [facility] Influenza Virus 2020-01-24 Completed [facility]5 mL 00:00:00 [facility] Influenza Virus 2020-01-24 Completed [facility]5 mL 00:00:00 [facility] Influenza Virus 2020-01-24 Completed [facility] .5 mL 00:00:00 [facility] Influenza Virus 2020-01-24 Completed [facility] .5 mL 00:00:00 [facility] Influenza Virus 2020-01-24 Completed [facility]5 mL 00:00:00 [facility] Influenza Virus 2020-01-24 Completed [facility]5 mL 00:00:00 [facility] Influenza Virus 2020-01-24 Completed [facility]5 mL 00:00:00 [facility] Influenza Virus 2020-01-24 Completed [facility]5 mL 00:00:00 [facility] Influenza Virus 2020-01-24 Completed [facility]5 mL 00:00:00 [facility] Influenza Virus 2020-01-24 Completed [facility]5 mL 00:00:00 [facility] Influenza Virus 2020-01-24 Completed [facility]5 mL 00:00:00 [facility] Influenza Virus 2020-01-24 Completed [facility]5 mL 00:00:00 [facility] Influenza Virus 2020-01-24 Completed [facility] .5 mL 00:00:00 [facility] Influenza Virus 2020-01-24 Completed [facility]5 mL 00:00:00 [facility] Influenza Virus 2020-01-24 Completed [facility] .5 mL 00:00:00 [facility] Influenza Virus 2020-01-24 Completed [facility] .5 mL 00:00:00 [facility] Influenza Virus 2020-01-24 Completed [facility] .5 mL 00:00:00 [facility] Influenza Virus 2020-01-24 Completed [facility] .5 mL 00:00:00 [facility] Influenza Virus 2020-01-24 Completed [facility] .5 mL 00:00:00 [facility] TDAP 2019-02-23 Completed [facility] 00:00:00 [facility] TDAP 2019-02-23 Completed [facility] 00:00:00 [facility] TDAP 2019-02-23 Completed [facility] 00:00:00 [facility] TDAP 2019-02-23 Completed [facility] 00:00:00 [facility] TDAP 2019-02-23 Completed [facility] 00:00:00 [facility] TDAP 2019-02-23 Completed [facility] 00:00:00 [facility] TDAP 2019-02-23 Completed [facility] 00:00:00 [facility] TDAP 2019-02-23 Completed [facility] 00:00:00 [facility] TDAP 2019-02-23 Completed [facility] 00:00:00 [facility] TDAP 2019-02-23 Completed [facility] 00:00:00 [facility] TDAP 2019-02-23 Completed [facility] 00:00:00 [facility] TDAP 2019-02-23 Completed [facility] 00:00:00 [facility] TDAP 2019-02-23 Completed [facility] 00:00:00 [facility] TDAP 2019-02-23 Completed [facility] 00:00:00 [facility] TDAP 2019-02-23 Completed [facility] 00:00:00 [facility] TDAP 2019-02-23 Completed [facility] 00:00:00 [facility] TDAP 2019-02-23 Completed [facility] 00:00:00 [facility] TDAP 2019-02-23 Completed [facility] 00:00:00 [facility] TDAP 2019-02-23 Completed [facility] 00:00:00 [facility] TDAP 2019-02-23 Completed [facility] 00:00:00 [facility] TDAP 2019-02-23 Completed [facility] 00:00:00 [facility] TDAP 2019-02-23 Completed [facility] 00:00:00 [facility] TDAP 2019-02-23 Completed [facility] of 00:00:00 [facility] TDAP 2019-02-23 Completed [facility] 00:00:00 [facility] TDAP 2019-02-23 Completed [facility] 00:00:00 [facility] TDAP 2019-02-23 Completed [facility] 00:00:00 [facility] TDAP 2019-02-23 Completed [facility] 00:00:00 [facility] TDAP 2019-02-23 Completed [facility] 00:00:00 [facility] TDAP 2019-02-23 Completed [facility] 00:00:00 [facility] TDAP 2019-02-23 Completed [facility] of 00:00:00 [facility] TDAP 2019-02-23 Completed [facility] 00:00:00 [facility] TDAP 2019-02-23 Completed [facility] 00:00:00 [facility] TDAP 2019-02-23 Completed [facility] 00:00:00 [facility] TDAP 2019-02-23 Completed [facility] 00:00:00 [facility] TDAP 2019-02-23 Completed [facility] 00:00:00 [facility] TDAP 2019-02-23 Completed [facility] 00:00:00 [facility] TDAP 2019-02-23 Completed [facility] 00:00:00 [facility] TDAP 2019-02-23 Completed [facility] 00:00:00 [facility] TDAP 2019-02-23 Completed [facility] 00:00:00 [facility] TDAP 2019-02-23 Completed [facility] 00:00:00 [facility] TDAP 2019-02-23 Completed [facility] 00:00:00 [facility] TDAP 2019-02-23 Completed [facility] 00:00:00 [facility] TDAP 2019-02-23 Completed [facility] 00:00:00 [facility] TDAP 2019-02-23 Completed [facility] 00:00:00 [facility] TDAP 2019-02-23 Completed [facility] 00:00:00 [facility] TDAP 2019-02-23 Completed [facility] 00:00:00 [facility] TDAP 2019-02-23 Completed [facility] 00:00:00 [facility] TDAP 2019-02-23 Completed [facility] 00:00:00 [facility] TDAP 2019-02-23 Completed [facility] 00:00:00 [facility] TDAP 2019-02-23 Completed [facility] 00:00:00 [facility] TDAP 2019-02-23 Completed [facility] 00:00:00 [facility] TDAP 2019-02-23 Completed [facility] of 00:00:00 [facility] Vital Signs Vital Name Observation Time Observation Value Comments Source Systolic blood 2020-09-29 15:36:00 145 mm[Hg] Univer sity of pressure [facility] Diastolic blood 2020-09-29 15:36:00 99 mm[Hg] Unive rsity of [facility] Heart rate 2020-09-29 15:34:00 82 /min [facility] Body temperature 2020-09-29 15:34:00 36.89 [facility] Respiratory rate 2020-09-29 15:34:00 24 /min [facility] Body height 2020-09-29 15:34:00 162.6 cm [facility] Body weight 2020-09-29 15:34:00 99.837 kg [facility] BMI 2020-09-29 15:34:00 37.78 kg/m2 [facility] Systolic blood 2020-09-05 16:21:00 140 mm[Hg] Univer sity of pressure [facility] Diastolic blood 2020-09-05 16:21:00 100 mm[Hg] Unive rsity of pressure [facility] Heart rate 2020-09-05 16:12:00 83 /min [facility] Body temperature 2020-09-05 16:11:00 37.06 Michell [facility] Respiratory rate 2020-09-05 16:11:00 16 /min [facility] Body height 2020-09-05 16:11:00 162.6 cm [facility] Body weight 2020-09-05 16:11:00 96.786 kg [facility] BMI 2020-09-05 16:11:00 36.63 kg/m2 [facility] Systolic blood 2020-08-23 01:00:00 139 mm[Hg] Univer sity of pressure [facility] Diastolic blood 2020-08-23 01:00:00 79 mm[Hg] Unive rsity of pressure [facility] Heart rate 2020-08-23 01:00:00 80 /min Universi ty of [facility] Oxygen saturation in 2020-08-23 01:00:00 100 /min University of Arterial blood by [facility] Pulse oximetry [place] Body temperature 2020-08-22 23:20:00 36.22 Michell [facility] Respiratory rate 2020-08-22 23:20:00 17 /min Univ ersity of [facility] Systolic blood 2020-08-22 19:06:00 140 mm[Hg] Univer sity of pressure [facility] Diastolic blood 2020-08-22 19:06:00 86 mm[Hg] Unive rsity of pressure [facility] Heart rate 2020-08-22 18:37:00 85 /min [facility] Body temperature 2020-08-22 18:36:00 35.94 [facility] Respiratory rate 2020-08-22 18:36:00 16 /min Univ ers[facility] Body height 2020-08-22 18:36:00 162.6 cm [facility] Body weight 2020-08-22 18:36:00 105.802 kg [facility] BMI 2020-08-22 18:36:00 40.04 kg/m2 [facility] Systolic blood 2020-08-17 04:29:00 136 mm[Hg] Univer sity of pressure [facility] Diastolic blood 2020-08-17 04:29:00 86 mm[Hg] Unive rsity of pressure [facility] Heart rate 2020-08-17 04:29:00 108 /min [facility] Body temperature 2020-08-17 04:29:00 36.89 [facility] Respiratory rate 2020-08-17 04:29:00 20 /min Univ ersity of [facility] Oxygen saturation in 2020-08-17 04:29:00 96 /min University of Arterial blood by [facility] na Pulse oximetry Branch Body height 2020-08-14 19:21:00 162.6 cm [facility] Body weight 2020-08-14 19:21:00 107.956 kg [facility] BMI 2020-08-14 19:21:00 40.85 kg/m2 [facility] Systolic blood 2020-08-15 22:00:00 142 mm[Hg] Univer sity of pressure [facility] Diastolic blood 2020-08-15 22:00:00 89 mm[Hg] Unive rsity of pressure [facility] Heart rate 2020-08-15 22:00:00 85 /min [facility] Respiratory rate 2020-08-15 22:00:00 16 /min Univ ers[facility] Oxygen saturation in 2020-08-15 22:00:00 99 /min University of Arterial blood by [facility] Pulse oximetry Branch Body temperature 2020-08-15 20:35:00 36.44 [facility]hell [facility] Body height 2020-08-14 19:21:00 162.6 cm [facility] Body weight 2020-08-14 19:21:00 107.956 kg [facility] BMI 2020-08-14 19:21:00 40.85 kg/m2 [facility] Systolic blood 2020-08-14 15:52:00 146 mm[Hg] Univer sity of pressure [facility] Diastolic blood 2020-08-14 15:52:00 92 mm[Hg] Unive rsity of pressure [facility] Heart rate 2020-08-14 15:51:00 104 /min [facility] Body temperature 2020-08-14 15:51:00 37.06 Mic[facility] Respiratory rate 2020-08-14 15:51:00 16 /min Univ ersity [facility] Body height 2020-08-14 15:51:00 162.6 cm [facility] Body weight 2020-08-14 15:51:00 108.954 kg [facility] BMI 2020-08-14 15:51:00 41.23 kg/m2 [facility] Systolic blood 2020-07-31 19:24:00 135 mm[Hg] Univer sity of pressure [facility] Diastolic blood 2020-07-31 19:24:00 90 mm[Hg] Unive rsity of pressure [facility] Heart rate 2020-07-31 19:13:00 92 /min [facility] Body temperature 2020-07-31 19:12:00 37 [facility] Respiratory rate 2020-07-31 19:12:00 16 /min Univ [facility] Body height 2020-07-31 19:12:00 162.6 cm [facility] Body weight 2020-07-31 19:12:00 107.049 kg [facility] BMI 2020-07-31 19:12:00 40.51 kg/m2 [facility] Systolic blood 2020-07-17 16:43:00 124 mm[Hg] Univer sity of pressure [facility] Diastolic blood 2020-07-17 16:43:00 86 mm[Hg] Unive rsity of pressure [facility] Body temperature 2020-07-17 16:22:00 37.39 [facility] Respiratory rate 2020-07-17 16:22:00 16 /min Univ [facility] Body height 2020-07-17 16:22:00 162.6 cm [facility] Body weight 2020-07-17 16:22:00 108.183 kg [facility] BMI 2020-07-17 16:22:00 40.94 kg/m2 [facility] Systolic blood 2020-07-03 22:23:00 127 mm[Hg] Univer sity of pressure [facility] Diastolic blood 2020-07-03 22:23:00 70 mm[Hg] Unive rsity of pressure [facility] Heart rate 2020-07-03 22:23:00 109 /min [facility] Respiratory rate 2020-07-03 22:23:00 17 /min Univ [facility] Oxygen saturation in 2020-07-03 22:23:00 100 /min University of Arterial blood by [facility] na Pulse oximetry Branch Body temperature 2020-07-03 21:45:00 35.83 [facility] Systolic blood 2020-07-03 22:23:00 127 mm[Hg] Univer sity of pressure [facility] Diastolic blood 2020-07-03 22:23:00 70 mm[Hg] Unive rsity of pressure [facility] Heart rate 2020-07-03 22:23:00 109 /min [facility] Respiratory rate 2020-07-03 22:23:00 17 /min [facility] Oxygen saturation in 2020-07-03 22:23:00 100 /min [facility] of Arterial blood by [facility] na Pulse oximetry Branch Body temperature 2020-07-03 21:45:00 35.83 [facility] Systolic blood 2020-06-28 01:30:00 126 mm[Hg] Univer sity of pressure [facility] Diastolic blood 2020-06-28 01:30:00 71 mm[Hg] Unive rsity of pressure [facility] Heart rate 2020-06-28 01:30:00 98 /min [facility] Oxygen saturation in 2020-06-28 00:30:00 100 /min [facility] of Arterial blood by [facility] na Pulse oximetry Branch Body temperature 2020-06-28 00:13:00 36.89 [facility] Respiratory rate 2020-06-28 00:13:00 20 /min [facility] Body height 2020-06-28 00:13:00 162.6 cm [facility] Body weight 2020-06-28 00:13:00 101.606 kg [facility] BMI 2020-06-28 00:13:00 38.45 kg/m2 [facility] ty of [facility] Systolic blood 2020-06-28 01:30:00 126 mm[Hg] Univer sity of pressure [facility] Diastolic blood 2020-06-28 01:30:00 71 mm[Hg] Unive rsity of pressure [facility] Heart rate 2020-06-28 01:30:00 98 /min Universi ty of [facility] Oxygen saturation in 2020-06-28 00:30:00 100 /min University Arterial blood by [facility] Pulse oximetry Branch Body temperature 2020-06-28 00:13:00 36.89 [facility] Respiratory rate 2020-06-28 00:13:00 20 /min Univ ersity of [facility] Body height 2020-06-28 00:13:00 162.6 cm [facility]i ty of [facility] Body weight 2020-06-28 00:13:00 101.606 kg [facility] BMI 2020-06-28 00:13:00 38.45 kg/m2 [facility] ty of [facility] Systolic blood 2020-06-26 14:20:00 128 mm[Hg] Univer sity of pressure [facility] Diastolic blood 2020-06-26 14:20:00 82 mm[Hg] Unive rsity of pressure [facility] Heart rate 2020-06-26 14:20:00 106 /min [facility]i ty of [facility] Body temperature 2020-06-26 14:20:00 37.06 [facility] Respiratory rate 2020-06-26 14:20:00 16 /min Univ ersity of [facility] Body height 2020-06-26 14:20:00 162.6 cm [facility] Body weight 2020-06-26 14:20:00 107.049 kg [facility] BMI 2020-06-26 14:20:00 40.51 kg/m2 [facility] Systolic blood 2020-06-26 14:20:00 128 mm[Hg] Univer sity of pressure [facility] Diastolic blood 2020-06-26 14:20:00 82 mm[Hg] Unive rsity of pressure [facility] Heart rate 2020-06-26 14:20:00 106 /min [facility] Body temperature 2020-06-26 14:20:00 37.06 [facility] Respiratory rate 2020-06-26 14:20:00 16 /min [facility] Body height 2020-06-26 14:20:00 162.6 cm [facility] Body weight 2020-06-26 14:20:00 107.049 kg [facility] BMI 2020-06-26 14:20:00 40.51 kg/m2 [facility] Systolic blood 2020-06-19 22:28:00 140 mm[Hg] Univer sity of pressure [facility] Diastolic blood 2020-06-19 22:28:00 84 mm[Hg] Unive rsity of pressure [facility] Heart rate 2020-06-19 22:18:00 109 /min [facility] Body temperature 2020-06-19 22:18:00 37.11 [facility] Respiratory rate 2020-06-19 22:18:00 16 /min [facility] Body height 2020-06-19 22:18:00 162.6 cm [facility] Body weight 2020-06-19 22:18:00 107.616 kg [facility] BMI 2020-06-19 22:18:00 40.72 kg/m2 [facility] Systolic blood 2020-06-19 22:28:00 140 mm[Hg] Univer sity of pressure [facility] Diastolic blood 2020-06-19 22:28:00 84 mm[Hg] Unive rsity of pressure [facility] Heart rate 2020-06-19 22:18:00 109 /min [facility] Body temperature 2020-06-19 22:18:00 37.11 [facility] Respiratory rate 2020-06-19 22:18:00 16 /min [facility] Body height 2020-06-19 22:18:00 162.6 cm [facility] Body weight 2020-06-19 22:18:00 107.616 kg [facility] BMI 2020-06-19 22:18:00 40.72 kg/m2 [facility] Systolic blood 2020-06-05 22:30:00 128 mm[Hg] Univer sity of pressure [facility] Diastolic blood 2020-06-05 22:30:00 60 mm[Hg] Unive rsity of pressure [facility] Heart rate 2020-06-05 22:18:00 107 /min [facility] Body temperature 2020-06-05 22:18:00 37.11 [facility] Respiratory rate 2020-06-05 22:18:00 16 /min [facility] Body height 2020-06-05 22:18:00 162.6 cm [facility] Body weight 2020-06-05 22:18:00 106.397 kg [facility] BMI 2020-06-05 22:18:00 40.26 kg/m2 [facility] Systolic blood 2020-06-05 22:30:00 128 mm[Hg] Univer sity of pressure [facility] Diastolic blood 2020-06-05 22:30:00 60 mm[Hg] Unive rsity of pressure [facility] Heart rate 2020-06-05 22:18:00 107 /min [facility] Body temperature 2020-06-05 22:18:00 37.11 [facility] Respiratory rate 2020-06-05 22:18:00 16 /min [facility] Body height 2020-06-05 22:18:00 162.6 cm [facility] Body weight 2020-06-05 22:18:00 106.397 kg [facility] BMI 2020-06-05 22:18:00 40.26 kg/m2 [facility] Systolic blood 2020-05-30 20:00:00 125 mm[Hg] [facility] Diastolic blood 2020-05-30 20:00:00 68 mm[Hg] [facility] Heart rate 2020-05-30 20:00:00 87 /min [facility] Respiratory rate 2020-05-30 20:00:00 23 /min [facility] Oxygen saturation in 2020-05-30 20:00:00 98 /min [facility] of Arterial blood by [facility] Pulse oximetry Branch Body temperature 2020-05-30 17:55:00 36.94 Michell [facility] Body weight 2020-05-30 17:55:00 105.325 kg [facility] BMI 2020-05-30 17:55:00 39.86 kg/m2 [facility] Systolic blood 2020-05-30 20:00:00 125 mm[Hg] [facility] Diastolic blood 2020-05-30 20:00:00 68 mm[Hg] [facility] Heart rate 2020-05-30 20:00:00 87 /min [facility] Respiratory rate 2020-05-30 20:00:00 23 /min [facility] Oxygen saturation in 2020-05-30 20:00:00 98 /min [facility] Arterial blood by [facility] Pulse oximetry Branch Body temperature 2020-05-30 17:55:00 36.94 Michell [facility] Body weight 2020-05-30 17:55:00 105.325 kg [facility] BMI 2020-05-30 17:55:00 39.86 kg/m2 [facility] Systolic blood 2020-05-21 18:57:00 131 mm[Hg] [facility] Diastolic blood 2020-05-21 18:57:00 80 mm[Hg] [facility] Heart rate 2020-05-21 18:57:00 96 /min [facility] Body temperature 2020-05-21 18:57:00 36.94 Michell [facility] Respiratory rate 2020-05-21 18:57:00 16 /min [facility] Body height 2020-05-21 18:57:00 162.6 cm [facility] Body weight 2020-05-21 18:57:00 104.441 kg [facility] BMI 2020-05-21 18:57:00 39.52 kg/m2 [facility] Systolic blood 2020-04-23 22:11:00 139 mm[Hg] [facility] Diastolic blood 2020-04-23 22:11:00 75 mm[Hg] [facility] Heart rate 2020-04-23 22:11:00 95 /min [facility] Body temperature 2020-04-23 22:11:00 37.06 Michell [facility] Respiratory rate 2020-04-23 22:11:00 16 /min [facility] Body height 2020-04-23 22:11:00 162.6 cm [facility] Body weight 2020-04-23 22:11:00 104.015 kg [facility] BMI 2020-04-23 22:11:00 39.36 kg/m2 [facility] Systolic blood 2020-03-24 17:05:00 139 mm[Hg] [facility] Diastolic blood 2020-03-24 17:05:00 84 mm[Hg] [facility] Heart rate 2020-03-24 17:05:00 101 /min [facility] Body temperature 2020-03-24 17:05:00 37.39 Michell [facility] Respiratory rate 2020-03-24 17:05:00 16 /min [facility] Body height 2020-03-24 17:05:00 162.6 cm [facility] Body weight 2020-03-24 17:05:00 102.229 kg [facility] BMI 2020-03-24 17:05:00 38.69 kg/m2 [facility] Systolic blood 2020-02-25 15:57:00 128 mm[Hg] [facility] Diastolic blood 2020-02-25 15:57:00 86 mm[Hg] [facility] Heart rate 2020-02-25 15:57:00 94 /min [facility] Body temperature 2020-02-25 15:57:00 37.44 Michell [facility] Respiratory rate 2020-02-25 15:57:00 16 /min [facility] Body height 2020-02-25 15:57:00 162.6 cm [facility] Body weight 2020-02-25 15:57:00 101.294 kg [facility] BMI 2020-02-25 15:57:00 38.33 kg/m2 [facility] Systolic blood 2020-02-18 13:58:00 134 mm[Hg] [facility] Diastolic blood 2020-02-18 13:58:00 84 mm[Hg] [facility] Heart rate 2020-02-18 13:58:00 98 /min [facility] Body temperature 2020-02-18 13:58:00 37.67 Michell [facility] Respiratory rate 2020-02-18 13:58:00 16 /min [facility] Body height 2020-02-18 13:58:00 162.6 cm [facility] Body weight 2020-02-18 13:58:00 101.606 kg [facility] BMI 2020-02-18 13:58:00 38.45 kg/m2 [facility] Systolic blood 2020-01-24 19:38:00 131 mm[Hg] [facility] Diastolic blood 2020-01-24 19:38:00 82 mm[Hg] [facility] Heart rate 2020-01-24 19:38:00 88 /min [facility] Body temperature 2020-01-24 19:38:00 37.61 Michell [facility] Respiratory rate 2020-01-24 19:38:00 16 /min [facility] Body height 2020-01-24 19:38:00 162.6 cm [facility] Body weight 2020-01-24 19:38:00 101.861 kg [facility] BMI 2020-01-24 19:38:00 38.55 kg/m2 [facility] Systolic blood 2019-12-18 14:00:00 124 mm[Hg] [facility] Diastolic blood 2019-12-18 14:00:00 84 mm[Hg] [facility] Heart rate 2019-12-18 14:00:00 82 /min [facility] Body temperature 2019-12-18 14:00:00 37.17 Michell [facility] Respiratory rate 2019-12-18 14:00:00 16 /min [facility] Body height 2019-12-18 14:00:00 162.6 cm [facility] Body weight 2019-12-18 14:00:00 102.57 kg [facility] BMI 2019-12-18 14:00:00 38.81 kg/m2 [facility] Systolic blood 2019-06-11 22:23:00 136 mm[Hg] [facility] Diastolic blood 2019-06-11 22:23:00 87 mm[Hg] [facility] Heart rate 2019-06-11 22:23:00 97 /min [facility] Body temperature 2019-06-11 22:23:00 37.44 Michell [facility] Respiratory rate 2019-06-11 22:23:00 16 /min [facility] Body height 2019-06-11 22:23:00 162.6 cm [facility] Body weight 2019-06-11 22:23:00 99.933 kg [facility] BMI 2019-06-11 22:23:00 37.82 kg/m2 [facility] Systolic blood 2019-01-05 16:25:00 126 mm[Hg] [facility] Diastolic blood 2019-01-05 16:25:00 80 mm[Hg] [facility] Heart rate 2019-01-05 16:25:00 84 /min [facility] Body temperature 2019-01-05 16:25:00 37.06 Michell [facility] Respiratory rate 2019-01-05 16:25:00 18 /min [facility] Body height 2019-01-05 16:25:00 162.6 cm [facility] Body weight 2019-01-05 16:25:00 102.683 kg [facility] BMI 2019-01-05 16:25:00 38.86 kg/m2 [facility] Systolic blood 2019-01-02 15:11:00 130 mm[Hg] Univer sity of pressure [facility] Diastolic blood 2019-01-02 15:11:00 79 mm[Hg] Unive rsity of pressure [facility] Body temperature 2019-01-02 15:11:00 37.72 Michell [facility] ersity of [facility] Body height 2019-01-02 15:11:00 162.6 cm Universi ty of [facility] Body weight 2019-01-02 15:11:00 102.967 kg [facility]i [facility] of [facility] BMI 2019-01-02 15:11:00 38.96 kg/m2 [facility]i [facility] of [facility] Systolic blood 2018-12-22 19:41:00 135 mm[Hg] Univer [facility]ity of pressure [facility] Diastolic blood 2018-12-22 19:41:00 81 mm[Hg] Unive rsity of [facility] Heart rate 2018-12-22 19:38:00 99 /min Universi ty of [facility] Body temperature 2018-12-22 19:38:00 36.28 Michell [facility] Res[facility] rate 2018-12-22 19:38:00 16 /min [facility] Body height 2018-12-22 19:38:00 162.6 cm Universi ty of [facility] Body weight 2018-12-22 19:38:00 102.513 kg [facility] [place] [facility] [place] BMI 2018-12-22 19:38:00 38.79 kg/m2 [facility] Procedures Procedure Date / Time Performing Clinician Source Performed CBC WITH DIFF 2020-09-29 16:12:00 Amos Car [facility] POCT URINALYSIS 2020-09-05 16:13:00 Amos Car [facility] URINALYSIS 2020-08-23 00:50:00 VuBianca [facility] PROTEIN CREAT RATIO URINE 2020-08-23 00:50:00 [facility] AMINO 2020-08-22 23:44:00 Vu, [facility] TRANSFER) Medical Branch CREATININE 2020-08-22 23:44:00 Vu, [facility] ALANINE AMINO 2020-08-22 23:44:00 Vu, [facility] TRANSFERASE([facility] LACTATE DEHYDROGENASE 2020-08-22 23:44:00 Vu, [facility] URIC ACID 2020-08-22 23:44:00 Vu, [facility] CBC WITH DIFF 2020-08-22 23:44:00 Vu, [facility] COVID-19 (ID NOW RAPID 2020-08-22 23:07:00 Donald Sweet [facility] TESTING) [facility] POCT URINALYSIS 2020-08-22 18:56:00 Amos Car [facility] CBC WITH DIFF 2020-08-16 10:40:00 Maryann Conroy [facility] CBC WITH DIFF 2020-08-16 10:40:00 Maryann Conroy [facility] SECTION 2020-08-15 19:11:00 Antonieta Ochoa [facility] CENTRAL NEURAXIAL BLOCK 2020-08-15 02:09:12 Reynaldo Jennings [facility] SGOT (ASPARTATE AMINO 2020-08-14 21:23:00 [facility] TRANSFER) Medical Branch CREATININE 2020-08-14 21:23:00 Mary Alcaraz [facility] ALANINE AMINO 2020-08-14 21:23:00 Mary Alcaraz [facility] TRANSFERASE([facility] LACTATE DEHYDROGENASE 2020-08-14 21:23:00 [facility] URIC ACID 2020-08-14 21:23:00 Mary Alcaraz [facility] CBC WITH DIFF 2020-08-14 21:23:00 Mary Alcaraz [facility] URINALYSIS 2020-08-14 21:23:00 Mary Alcaraz [facility] HEPATITIS B SURFACE 2020-08-14 21:23:00 Mary Alcaraz [facility] ANTIGEN [facility] PROTEIN CREAT RATIO URINE 2020-08-14 21:23:00 Mary Alcaraz [facility] GALV ONLY - SYPHILIS 2020-08-14 21:23:00 [facility] IGG/IGM [facility] SGOT (ASPARTATE AMINO 2020-08-14 21:23:00 [facility]az [facility] TRANSFER) Medical Branch CREATININE 2020-08-14 21:23:00 Mary Alcaraz [facility] ALANINE AMINO 2020-08-14 21:23:00 Mary Alcaraz [facility] TRANSFERASE(SGPT Medical Branch LACTATE DEHYDROGENASE 2020-08-14 21:23:00 Mary Alcaraz [facility] URIC ACID 2020-08-14 21:23:00 Mary Alcaraz [facility] CBC WITH DIFF 2020-08-14 21:23:00 Mary Alcaraz [facility] URINALYSIS 2020-08-14 21:23:00 Mary Alcaraz [facility] HEPATITIS B SURFACE 2020-08-14 21:23:00 Mary Alcaraz [facility] PROTEIN CREAT RATIO URINE 2020-08-14 21:23:00 Mary Alcaraz [facility] GALV ONLY - SYPHILIS 2020-08-14 21:23:00 [facility] IGG/IGM [facility] HB ABO GROUPING 2020-08-14 20:59:00 Mary Alcaraz [facility] RHO (D) IMMUNE GLOBULIN 2020-08-14 20:59:00 [facility] HB ABO GROUPING 2020-08-14 20:59:00 Mary Alcaraz [facility] RHO (D) IMMUNE GLOBULIN 2020-08-14 20:59:00 [facility] COVID-19 (ID NOW RAPID 2020-08-14 19:30:00 Evan Jenny [facility] TESTING) Medical Branch LAB ONLY COVID 2020-08-14 19:30:00 [place] [facility] INTERPRETATION [facility] COVID-19 (ID NOW RAPID 2020-08-14 19:30:00 Evan Jenny [facility] TESTING) Medical Branch LAB ONLY COVID 2020-08-14 19:30:00 [place] [facility] INTERPRETATION [facility] POCT URINALYSIS 2020-08-14 15:53:00 Amos Car [facility] NOTICE OF RESEARCH 2020-08-14 05:01:00 Doctor Octavio [facility] PARTICIPATION [place] [facility] POCT URINALYSIS 2020-07-31 19:15:00 Amos Car [facility] POCT URINALYSIS 2020-07-17 16:27:00 Amos Car [facility] URINALYSIS 2020-07-03 22:19:00 Evan [facility] COVID-19 (ID NOW RAPID 2020-07-03 21:32:00 Olya Rodriguez [facility] TESTING) Medical Branch CONSENT/REFUSAL FOR 2020-07-03 06:01:00 Doctor Octavio [facility] DIAGNOSIS AND TREATMENT [place] [facility] CONSENT/REFUSAL FOR 2020-07-03 06:01:00 Doctor Octavio [facility] DIAGNOSIS AND TREATMENT [place] [facility] DME/SUPPLY JUSTIFICATION 2020-07-02 06:01:00 Doctor Octavio [facility] [place] [facility] ADC ONLY - FERN TEST 2020-06-28 01:09:00 Lubna Blum [facility] COVID-19 (ID NOW RAPID 2020-06-28 01:09:00 Lub[place] Blum [facility] TESTING) Medical Branch ASSIGNMENT OF BENEFITS 2020-06-27 23:54:34 Doctor Octavio [facility] [place] [facility] NOTICE OF PRIVACY 2020-06-27 23:54:17 Doctor Octavio [facility] PRACTICES [place] [facility] POCT URINALYSIS 2020-06-26 14:30:00 Amos Car [facility] DME/SUPPLY JUSTIFICATION 2020-06-26 06:01:00 Doctor Unassigned, [facility] [place] [facility] POCT URINALYSIS 2020-06-19 22:23:00 Amos Car [facility] POCT URINALYSIS 2020-06-19 22:22:00 Amos Car [facility] TDAP VACCINE, >11 YRS, IM 2020-06-19 22:21:22 Amos Car [facility] POCT URINALYSIS 2020-06-05 22:22:00 Amos Car [facility] LIPASE 2020-05-30 18:19:00 Karin Joshua [facility] TROPONIN I 2020-05-30 18:19:00 Karin Joshua [facility] HEPATIC FUNCTION PANEL 2020-05-30 18:19:00 Karin Joshua [facility] ([id number]) (ALB,T.PRO,[facility] T,BU/BC,ALT,AST,ALK PHOS) BASIC METABOLIC PANEL 2020-05-30 18:19:00 Karin Joshua [facility] (NA, K, CL, CO2, GLUCOSE, Medica l Branch BUN, CREATININE, CA) CBC WITH DIFF 2020-05-30 18:19:00 Karin Joshua [facility] D-DIMER 2020-05-30 18:19:00 Karin Joshua [facility] URINALYSIS 2020-05-30 18:19:00 Karin Joshua [facility] N-TERMINAL PRO-BNP 2020-05-30 18:19:00 Karin Joshua [facility] COVID-19 (ID NOW RAPID 2020-05-30 18:19:00 Karin Joshua [facility] TESTING) [facility] POCT URINALYSIS 2020-05-21 20:24:00 Amos Car [facility] POCT URINALYSIS 2020-04-23 22:14:00 Amos Car [facility] SECOND AND THIRD 2020-04-15 15:28:00 Amos Car [facility] TRIMESTER ULTRASOUND [facility] POCT URINALYSIS 2020-03-24 17:06:00 Amos Car [facility] POCT URINALYSIS 2020-02-25 16:44:00 Amos Car [facility] FLU VACC ([id number]), 6+ 2020-01-24 19:45:20 Amos Car [facility] MONTHS, IM, QUAD [facility] POCT URINALYSIS W/O 2020-01-24 19:26:00 [facility] SPECIFIC GRAVITY [facility] POCT TEST 2020-01-24 19:25:00 [facility]os [facility] REPORT OF 2020-01-24 05:01:00 Doctor Unasskwan, [facility] Name Medical [place] ASSIGNMENT OF BENEFITS 2019-12-18 13:46:27 Doctor Unassigned, [facility] [place] [facility] [place] TOTAL BETA HCG ASSAY 2019-06-21 17:04:00 Rodrigue Rodriguez [facility] TOTAL BETA HCG ASSAY 2019-06-11 23:01:00 [facility] WITH DIFFERENTIAL 2019-06-11 23:01:00 Amos Car [facility] POCT TEST 2019-06-11 22:47:00 Amos Car [facility] IMMTRAC2 CONSENT 2019-06-11 06:01:00 Doctor Octavio, [facility] [place] [facility] DISCLOSURE AND CONSENT, 2019-01-02 05:01:00 [facility] [place] [facility] PROCEDURES FIRST TRIMESTER 2019-01-01 20:55:00 Rodrigue Rodriguez [facility] ULTRASOUND Medical Branch POCT TEST 2018-12-22 19:41:00 Rodrigue [facility] POCT GLUCOSE(AGE >30DAYS) 2018-12-22 19:41:00 Rodrigue Rodriguez [facility] POCT URINALYSIS W/O 2018-12-22 19:35:00 Rodrigue Rodriguez [facility] SPECIFIC GRAVITY [facility] ASSIGNMENT OF BENEFITS 2018-12-22 18:55:53 Doctor Unassigned, Un [facility] [place] [facility] Encounters Start End Encounter Admission Attending Care Care Encounter Source Date/Time Date/Time Type Type Clinicians Facility Department ID 2021-02-22 Outpatient P [facility] [id number] Univers 16:28:19 ity [facility] 2021-02-22 Outpatient [facility] [id number] [facility]22 Outpatient P [facility] [id number] Univers 05:24:42 [facility] 2021-02-22 Outpatient P [facility] [id number] Univers 03:44:09 ity [facility] 2021-02-22 Outpatient P [facility] [id number] Univers 03:43:36 ity of [facility] 2021-02-21 Emergency [facility] [id number] Univers 22:06[facility]05 [facility] 2020-12-18 2020-12-18 [facility] [id number] Univers 11:00:00 11:00:00 RODRIGUE [id number] [facility] 2020-12-18 2020-12-18 [facility] [id number] Univers 11:00:00 11:00:00 RODRIGUE [facility] 2020-09-29 2020-09-29 Office [facility] [id number] Univers 10:09:43 11:12:52 Visit Amos Coello [id number] Ronal as MATERNAL [id number] [facility] ical & CHILD [address] [place] [address] 2020-09-29 2020-09-29 Outpatient R JOSEP [facility] [id number] Univers 09:45:00 09:45:00 AMOS [id number] ity o [facility] 2020-09-29 2020-09-29 Outpatient R AKINSIPE, [facility] [id number] Univers 09:45:00 09:45:00 AMOS ity o [facility] 2020-09-26 2020-09-26 Outpatient R AKINSIPE, [facility] [id number] Univers 15:15:00 15:15:00 AMOS [id number] ity o [facility] 2020-09-26 2020-09-26 Outpatient R AKINSIPE, [facility] [id number] Univers 15:15:00 15:15:00 AMOS ity o [facility] 2020-09-05 2020-09-05 Routine Akinsipe, [facility] [id number] Univers 10:52:35 11:39:33 Amos C [facility] [id number] ity of Visit REGIONAL [id number] Ronal as MATERNAL [id number] [facility] ical & CHILD [address] [place] [address] 2020-09-05 2020-09-05 Outpatient R AKINSIPE, [facility] [id number] Univers 10:30:00 10:30:00 AMOS ity o [facility] 2020-08-22 2020-08-22 [facility] Kenneth Diez [id number] Univers 17:57:00 20:27:00 Encounter DARION [id number] [id number] [id number] [facility] 070 [place] 2020-08-22 2020-08-22 Nurse Visit, Ang-Rmchp Nurse [facility] [id number] Univers 13:28:42 14:02:33 Visit Amos Car [facility] [id number] 10 ity of [facility] [id number] Ronal as MATERNAL [id number] [facility] ical & CHILD [address] [place] [address] 2020-08-22 2020-08-22 Outpatient R [facility] [id number] Univers 13:30:00 13:30:00 [id number] ity of [facility] 2020-08-22 2020-08-22 Outpatient R [facility] [id number] Univers 13:30:00 13:30:00 ity of [facility] 2020-08-21 2020-08-21 Outpatient AKINSIPE, [facility] [id number] Univers 10:45:00 10:45:00 AMOS [id number] ity o f [facility] 2020-08-14 2020-08-17 Hospital IVAN Ochoa [id number] Univers 13:52:00 14:57:00 Encounter Antonieta DARION [id number] ity of [facility] [id number] Ronal as [id number] [facility] 063 [place] 2020-08-15 2020-08-15 Surgery IVAN Ochoa [id number] Univers 15:36:00 17:22:00 Antonieta DAR[place] [id number] i [id number] [id number] [facility] 013 [place] 2020-08-14 2020-08-15 Anesthesia Reynaldo Jennings [id number] Univers 20:40:00 15:40:00 Event Debi Galo [place] [id number] [id number] [id number] [facility] 013 [place] 2020-08-14 2020-08-14 Routine Akinsi, [facility] [id number] Univers 10:33:15 11:10:09 Amos Coello [facility] [id number] ity of Visit REGIONAL [id number] Ronal as MATERNAL [id number] [facility] ical & CHILD [address] [place] [address] 2020-08-14 2020-08-14 Outpatient AKINSIPE, [facility] [id number] Univers 10:30:00 10:30:00 AMOS [id number] ity o f [facility] 2020-08-14 2020-08-14 Outpatient R LILYPE, [facility] [id number] Univers 10:30:00 10:30:00 AMOS ity o [facility] 2020-08-14 2020-08-14 Orders Doctor IVAN [id number] Univers 00:00:00 00:00:00 Only Unassigned, [place] [id number] ity of [place] [facility] [id number] Ronal as [phone] [address] 2020-08-12 2020-08-12 Refill Josep, [facility] [id number] Univers 00:00:00 00:00:00 Amos Coello [facility] [id number] ity of REGIONAL [id number] Ronal as MATERNAL [id number] [facility] ical & CHILD [address] [place] [address] 2020-08-06 2020-08-06 Outpatient R AKINSIPE, [facility] [id number] Univers 08:00:00 08:00:00 AMOS [id number] ity o [facility] 2020-08-06 2020-08-06 Outpatient R AKINSIPE, [facility] [id number] Univers 08:00:00 08:00:00 AMOS ity o [facility] 2020-07-31 2020-07-31 Routine Akinsipe, [facility] [id number] Univers 13:57:00 14:40:22 Amos Coello [facility] [id number] ity of Visit REGIONAL 4.2.7.2.686 Ronal as MATERNAL [id number] [facility] & CHILD [address] [place] [address] 2020-07-31 2020-07-31 Outpatient R AKINSIPE, [facility] [id number] 0Q-20 Univers 14:00:00 14:00:00 AMOS [id number] ity o [facility] 2020-07-31 2020-07-31 Outpatient R AKINSIPE, [facility] [id number] Univers 14:00:00 14:00:00 AMOS lugoy o f [facility] 2020-07-17 2020-07-17 Routine Akinsipe, [facility] 1.2.555.221 [id number] Univers 11:13:30 11:43:32 Amos Coello [place]YE[place]ELTER 350.1.13.10 ity of Visit [facility] 4.2.7.2.686 Ronal as MATERNAL [phone] [facility] ical & CHILD [address] [place] [address] 2020-07-17 2020-07-17 Outpatient R AKINSIPE, [facility] [id number] 0Q-20 Univers 11:00:00 11:00:00 AMOS [id number] ity o [facility] 2020-07-17 2020-07-17 Outpatient R AKINSIPE, [facility] [id number] Univers 11:00:00 11:00:00 AMOS reyes o [facility] 2020-07-15 2020-07-15 Patient [facility] 1.2.840.114 [id number] Univers 00:00:00 00:00:00 Outreach Stef PRIMARY 350.1.13.[address] [facility] 4.2.7.2.686 Ronalbang COREY [id number] [address] 2020-07-10 2020-07-10 Outpatient R AKINSIPE, [facility] [id number] 0Q-20 Univers 16:00:00 16:00:00 AMOS [id number] y o [facility] 2020-07-10 2020-07-10 Outpatient R AKINSIPE, [facility] [id number] Univers 16:00:00 16:00:00 AMOS ity o f [facility] 2020-07-03 2020-07-03 [facility] 1.2.835.355 [id number] 15:30:00 16:44:00 Encounter Olya [place] 350.1.13.10 [place] 4.2.7.2.686 [id number] [id number] 2020-07-03 2020-07-03 [facility] 1.2.445.144 [id number] Univers 15:30:00 16:44:00 Encounter Dobson M DARION 350.1.13.10 ity of [place] [phone] [facility] 070 [place] 2020-07-03 2020-07-03 [facility] [id number] 0Q-20 Univers 15:45:00 15:45:00 AMOS [id number] ity o f [facility] 2020-07-03 2020-07-03 Outpatient R [facility] [id number] Univers 15:45:00 15:45:00 AMOS ity o f [facility] 2020-07-02 2020-07-02 Orders Doctor LOVE 1.2.840.114 [id number] 00:00:00 00:00:00 Only Unassigned, DARION 350.1.13.10 [place] [facility] 4.2.7.2.[id number] [facility] 2020-07-02 2020-07-02 Orders Doctor LOVE 1.2.840.114 [id number] Univers 00:00:00 00:00:00 Only Unassigned, DARION 350.1.13.10 ity of [place] [facility] 4.2.7.2.686 Ronal as [id number] [facility] 009 [place] 2020-06-27 2020-06-27 [facility] 1.2.840.114 [id number] 17:54:00 20:00:00 Encounter Cam Roslyn 350.1.13.10 [place] 4.2.7.2.686 [place] [id number] [facility] 2020-06-27 2020-06-27 [facility] 1.2.840.114 [id number] Univers 17:54:00 20:00:00 Encounter Cam Roslyn 350.1.13.10 ity of [place] 4.2.7.2.[place] [id number] [facility] 083 [place] 2020-06-27 2020-06-27 Nurse Esther Curran 1.2.840.114 [id number] 00:00:00 00:00:00 Triage [place] 350.1.13.10 HOSPITAL 4.2.7.2.686 [id number] [id number] 2020-06-27 2020-06-27 Nurse Esther Curran 1.2.840.114 [id number] Univers 00:00:00 00:00:00 Triage DARION 350.1.13.10 it y of HOSPITAL 4.2.7.2.686 Ronal as [id number] [address] 2020-06-26 2020-06-26 Routine Akinsipe, [facility] 1.2.719.958 [id number] 08:13:46 08:45:55 Amos C [place] 350.1.13.10 Visit REGIONAL 4.2.7.2.686 MATERNAL [phone] & CHILD [address] [place] [address] 2020-06-26 2020-06-26 Routine Akinsipe, [facility] 1.2.339.884 [id number] [facility] 08:13:46 08:45:55 Amos C [place] 350.1.13.10 ity of Visit REGIONAL 4.2.7.2.686 Ronal as MATERNAL [id number] Med ical & CHILD [address] [place] [address] 2020-06-26 2020-06-26 Outpatient R [facility], [facility] [id number] 0Q-20 Univers 08:00:00 08:00:00 AMOS [id number] ity o [facility] 2020-06-26 2020-06-26 [facility] [id number] Univers 08:00:00 08:00:00 AMOS ity o [facility] 2020-06-26 2020-06-26 Orders Doctor IVAN 1.2.840.114 [id number] 00:00:00 00:00:00 Only Unassigned, DARION 350.1.13.10 [place] [facility] 4.2.7.2.686 [id number] [id number] 2020-06-26 2020-06-26 Orders Doctor IVAN 1.2.840.114 [id number] Univers 00:00:00 00:00:00 Only Unassigned, DARION 350.1.13.10 ity of [place] [facility] 4.2.7.2.686 Ronal as [phone] [address] 2020-06-19 2020-06-19 Routine Akinsipe, [facility] 1.2.185.088 7425 8629 16:12:48 16:55:51 Amos C [place] 350.1.13.10 Visit REGIONAL 4.2.7.2.686 MATERNAL [phone] & CHILD [address] [place] [address] 2020-06-19 2020-06-19 Routine Akinsipe, [facility] 1.2.991.937 [id number] [id number] Univers 16:12:48 16:55:51 Amos C [place] 350.1.13.10 ity of Visit REGIONAL 4.2.7.2.686 Ronal as MATERNAL [id number] [facility] & [address] 2020-06-19 2020-06-19 Outpatient R AKINSIPE, [facility] [id number] 0Q-20 Univers 16:00:00 16:00:00 AMOS [id number] ity o [facility] 2020-06-19 2020-06-19 Outpatient R AKINSIPE, [facility] [id number] Univers 16:00:00 16:00:00 AMOS ity o [facility] 2020-06-05 2020-06-05 Routine Akinpe, [facility] 1.2.710.107 [id number] 16:10:24 16:44:03 Amos C [place] 350.1.13.10 Visit REGIONAL 4.2.7.2.686 MATERNAL [id number] [address] 2020-06-05 2020-06-05 Routine Akinsipe, [facility] 1.2.795.514 [id number] Univers 16:10:24 16:44:03 Amos C [place] 350.1.13.10 ity of Visit REGIONAL 4.2.7.2.686 Ronal as MATERNAL [phone] [facility] & [address] 2020-06-05 2020-06-05 Outpatient R AKINSIPE, [facility] [id number] 0Q-20 Univers 16:00:00 16:00:00 AMOS [id number] ity o [facility] 2020-06-05 2020-06-05 Outpatient R JOSEP, [facility] [id number] Univers 16:00:00 16:00:00 AMOS ity o f [facility] 2020-05-30 2020-05-30 Emergency Karin Joshua [facility] 1.2.840 .114 [id number] 12:02:00 14:45:00 Carlos Aguillon 350.1.13.10 [place] 4.2.7.2.686 [place] [id number] [facility] 2020-05-30 2020-05-30 Emergency Karin Joshua [facility] 1.2.840 .114 [id number] [facility] 12:02:00 14:45:00 Carlos Aguillon 350.1.13.10 ity [facility] 4.2.7.2.686 [facility] [place] [place] [phone] [address] 2020-05-29 2020-05-29 Telephone Akinpe, [facility] 1.2.840.114 [id number] 00:00:00 00:00:00 Amos C [place] 350.1.13.10 REGIONAL 4.2.7.2.686 MATERNAL [id number] & CHILD [address] [place] [address] 2020-05-29 2020-05-29 Telephone Akinsipe, [facility] 1.2.840.114 [id number] Univers 00:00:00 00:00:00 Amos C [place] 350.1.13.10 ity [facility] 4.2.7.2.686 Ronal as MATERNAL [phone] Med ical & CHILD [address] [place] [address] 2020-05-22 2020-05-22 Telephone Akinsipe, [facility] 1.2.840.114 [id number] 00:00:00 00:00:00 Amos C [place] 350.1.13.10 REGIONAL 4.2.7.2.686 MATERNAL [phone] & CHILD [address] [place] [address] 2020-05-22 2020-05-22 Telephone Akinsipe, [facility] 1.2.840.114 [id number] Univers 00:00:00 00:00:00 Amos C [place] 350.1.13.10 ity of REGIONAL 4.2.7.2.686 Ronal as MATERNAL [id number] [facility] & CHILD [address] [place] [address] 2020-05-21 2020-05-21 Routine Akinsipe, [facility] 1.2.557.335 [id number] Univers 12:46:00 13:13:29 Amos C [place] 350.1.13.10 ity of Visit REGIONAL 4.2.7.2.686 Ronal as MATERNAL [phone] [facility] & CHILD [address] [place] [address] 2020-05-21 2020-05-21 Outpatient R AKINSIPE, [facility] [id number] 0Q-20 Univers 12:45:00 12:45:00 AMOS [id number] ity o [facility] 2020-05-21 2020-05-21 Outpatient R AKINSIPE, [facility] [id number] Univers 12:45:00 12:45:00 AMOS lugoy o [facility] 2020-04-23 2020-04-23 Routine Akinsipe, [facility] 1.2.113.445 [id number] Univers 16:03:33 16:32:10 Amos C [place] 350.1.13.10 ity of Visit REGIONAL 4.2.7.2.686 Ronal as MATERNAL [phone] [facility] & [address] 2020-04-23 2020-04-23 Outpatient R AKINSIPE, [facility] [id number] 0Q-20 Univers 16:00:00 16:00:00 AMOS ity o [facility] 2020-04-23 2020-04-23 Outpatient R AKINSIPE, [facility] [id number] Univers 16:00:00 16:00:00 AMOS ity o [facility] 2020-04-22 2020-04-22 Outpatient R AKINSIPE, [facility] [id number] 0Q-20 Univers 10:45:00 10:45:00 AMOS [id number] ity o f [facility] 2020-04-22 2020-04-22 Outpatient R AKINSIPE, [facility] [id number] Univers 10:45:00 10:45:00 AMOS ity o f [facility] 2020-04-15 2020-04-15 Electrocardiograph Operator Ultrasound, [facility] 1.2 .840.114 [id number] Univers 09:15:20 10:28:29 Visit Otto Tsang [place] 350.1.13.10 ity of REGIONAL 4.2.7.2.686 Ronal as MATERNAL [id number] Med ical & CHILD [address] [facility] 2020-04-15 2020-04-15 Outpatient R [facility] [id number] Univers 09:00:00 09:00:00 [id number] ity of [facility] 2020-04-15 2020-04-15 Outpatient P [facility] [id number] Univers 09:00:00 09:00:00 ity of [facility] 2020-04-15 2020-04-15 [facility] 1.2.840.114 [id number] Univers 00:00:00 00:00:00 Amos Coello [place] 350.1.13.10 ity of [facility] 4.2.7.2.686 Ronal as MATERNAL [id number] [facility] & CHILD [address] [place] [address] 2020-04-15 2020-04-15 Abstract [facility] 1.2.840.114 [id number] Univers 00:00:00 00:00:00 Amos Coello [place] 350.1.13.10 ity of REGIONAL 4.2.7.2.686 Ronal as MATERNAL [id number] [facility] CHILD [address] [place] [address] 2020-04-07 2020-04-07 Telephone [facility] 1.2.840.114 [id number] Univers 00:00:00 00:00:00 Olya Guerrero [place] 350.1.13.10 i ty of REGIONAL 4.2.7.2.686 Ronal as MATERNAL [phone] [facility] CHILD [address] [place] [address] 2020-03-24 2020-03-24 Routine [facility] 1.2.566.557 [id number] Univers 10:49:14 11:37:14 Amos C [place] 350.1.13.10 ity of Visit REGIONAL 4.2.7.2.686 Ronal as MATERNAL [phone] [facility] ical & CHILD [address] [place] [address] 2020-03-24 2020-03-24 Outpatient R AKINVINAYAK, [facility] [id number] 0Q-20 Univers 10:45:00 10:45:00 AMOS [id number] ity o f [facility] 2020-03-24 2020-03-24 Outpatient R AKINSIPE, [facility] [id number] Univers 10:45:00 10:45:00 AMOS ity o f [facility] 2020-02-26 2020-02-26 Electrocardiograph Operator [facility] Room [facility] 1.2. 840.114 [id number] Univers 09:11:59 09:56:59 Visit Peng Redmond [place] 350.1.13.10 ity of REGIONAL 4.2.7.2.686 Ronal as MATERNAL [phone] [facility] 2020-02-26 2020-02-26 Electrocardiograph Operator [facility] 1.2 .840.114 [id number] Univers 09:12:35 09:45:16 Visit Maryann Frausto [place] 350.1.13.10 ity of REGIONAL 4.2.7.2.686 Ronal as MATERNAL [phone] [facility] 2020-02-26 2020-02-26 Outpatient R [facility] [id number] Univers 09:00:00 09:00:00 ity of [facility] 2020-02-26 2020-02-26 Outpatient P [facility] [id number] Univers 09:00:00 09:00:00 ity [facility] 2020-02-25 2020-02-25 [facility] 1.2.486.180 [id number] Univers 09:50:41 10:24:38 Amos Coello [place] 350.1.13.10 ity of Visit REGIONAL 4.2.7.2.686 Ronal as MATERNAL [id number] [facility] ical & CHILD [address] [place] [address] 2020-02-25 2020-02-25 [facility] [id number] 0Q-20 Univers 10:15:00 10:15:00 AMOS ity o f [facility] 2020-02-25 2020-02-25 [facility] [id number] Univers 10:15:00 10:15:00 AMOS ity o f [facility] 2020-02-18 2020-02-18 Routine Faculty, Link [facility] 1.2 .840.114 [id number] Univers 08:53:42 09:30:56 Herman Redmond [place] 350.1.13.10 ity of Visit REGIONAL 4.2.7.2.686 Ronal as MATERNAL [phone] [facility] ical & CHILD [address] [place] [address] 2020-02-18 2020-02-18 Outpatient R [facility] [id number] Univers 09:00:00 09:00:00 [id number] ity of [facility] 2020-02-18 2020-02-18 Outpatient R [facility] [id number] Univers 09:00:00 09:00:00 ity of [facility] 2020-02-15 2020-02-[address] [facility] 1.2.840.114 [id number] Univers 00:00:00 00:00:00 Amos Coello [place] 350.1.13.10 ity of REGIONAL 4.2.7.2.686 Ronal as MATERNAL [phone] [facility] & [address] 2020-02-12 2020-02-[address] 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 840.114 [id number] Univers 08:07:07 08:52:07 Visit Dora Guerrero [place] 350.1. 13.10 ity of Olya Rodriguez [facility] 4.2.7.2.686 [place] MATERNAL [phone] Med ical & CHILD [facility] 2020-02-11 2020-02-11 Outpatient R [facility] [id number] Univers 08:00:00 08:00:00 [id number] ity of [facility] 2020-02-11 2020-02-11 Outpatient P [facility] [id number] Univers 08:00:00 08:00:00 ity of [facility] 2020-02-01 2020-02-01 Telephone [facility] 1.2.840.114 [id number] Univers 00:00:00 00:00:00 Amos Coello [place] 350.1.13.10 ity of [facility] 4.2.7.2.686 Ronal as MATERNAL [phone] [facility] CHILD [address] [place] [address] 2020-01-31 2020-01-31 Electrocardiograph Operator Lab, [facility] 1.2.840. 114 [id number] Univers 10:26:35 10:40:40 Visit Rodrigue Rodriguez [place] 350.1.13.10 ity of [facility] 4.2.7.2.686 Ronal as MATERNAL [phone] [facility] & CHILD [address] [place] [address] 2020-01-31 2020-01-31 Outpatient R [facility] [id number] Univers 10:30:00 10:30:00 ity [facility] 2020-01-31 2020-01-31 Outpatient R [facility] [id number] Univers 10:30:00 10:30:00 ity of [facility] 2020-01-28 2020-01-28 Telephone [facility] 1.2.840.114 [id number] Univers 00:00:00 00:00:00 Amos Coello [place] 350.1.13.10 ity of [facility] 4.2.7.2.686 Ronal as MATERNAL [id number] [facility] CHILD [address] [place] [address] 2020-01-24 2020-01-24 Initial [facility] 1.2.314.972 [id number] Univers 14:07:26 15:41:36 Amos Coello [place] 350.1.13.10 ity of Visit REGIONAL 4.2.7.2.686 Ronal as MATERNAL [id number] [facility] & CHILD [address] [place] [address] 2020-01-24 2020-01-24 [facility] [id number] 0Q-20 Univers 14:30:00 14:30:00 AMOS ity o f [facility] 2020-01-24 2020-01-24 Outpatient R [facility] [id number] Univers 14:00:00 14:00:00 ity [facility] 2020-01-24 2020-01-24 Orders Doctor LOVE 1.2.840.114 [id number] Univers 00:00:00 00:00:00 Only Unassigned, DARION 350.1.13.10 ity of [place] [facility] 4.2.7.2.686 Ronal as [phone] [address] 2019-12-19 2019-12-19 Telephone [facility] 1.2.840.114 [id number] Univers 00:00:00 00:00:00 Rodrigue Horvath [place] 350.1.13.10 it y of REGIONAL 4.2.7.2.686 Ronal as MATERNAL [phone] [facility] & CHILD [address] [place] [address] 2019-12-18 2019-12-18 Office [facility] 1.2.690.461 [id number] Univers 08:49:27 09:04:27 Visit Rodrigue Horvath [place] 350.1.13.10 it y of [facility] 4.2.7.2.686 Ronal as MATERNAL [id number] [facility] & [address] 2019-12-18 2019-12-18 [facility] [id number]-[id number] Univers 08:30:00 08:30:00 RODRIGUE [id number] eric [facility] 2019-12-18 2019-12-18 [facility] [id number] Univers 08:30:00 08:30:00 RODRIGUE reyes [facility] 2019-12-18 2019-12-18 Orders Doctor LOVE 1.2.840.114 [id number] Univers 00:00:00 00:00:00 Only Unassigned, DARION 350.1.13.10 ity of [place] [address] Ronal as [phone] [address] 2019-12-11 2019-12-11 Outpatient R AKINSIPE, [facility] [id number] 0Q-20 Univers 14:45:00 14:45:00 AMOS [id number] ity o [facility] 2019-12-11 2019-12-11 Outpatient R AKINSIPE, [facility] [id number] Univers 14:45:00 14:45:00 AMOS ity o [facility] 2019-07-10 2019-07-10 Telephone Akinsipe, [facility] 1.2.840.114 [id number] Univers 00:00:00 00:00:00 Amos Coello [place] 350.1.13.10 ity of [facility] 4.2.7.2.686 Ronal as MATERNAL [phone] [facility] ical & CHILD [address] [place] [address] 2019-07-07 2019-07-07 Outpatient [facility] [id number] [facility] 04:03:00 04:03:00 [id number] 2019-07-04 2019-07-04 Outpatient R AKINSIPE, [facility] [id number] 0Q-20 Univers 10:00:00 10:00:00 AMOS [id number] ity o [facility] 2019-07-04 2019-07-04 Outpatient R AKINSIPE, [facility] [id number] Univers 10:00:00 10:00:00 AMOS ity o [facility] 2019-07-02 2019-07-02 Outpatient R AKINSIPE, [facility] [id number] 0Q-[id number] Univers 09:45:00 09:45:00 AMOS ity o [facility] 2019-07-02 2019-07-02 Outpatient R AKINSIPE, [facility] [id number] Univers 09:45:00 09:45:00 AMOS ity o [facility] 2019-06-28 2019-06-28 Telephone Akinsipe, [facility] 1.2.840.114 [id number] Univers 00:00:00 00:00:00 Amos Coello [place] 350.1.13.10 ity of REGIONAL 4.2.7.2.686 Ronal as MATERNAL [phone] [facility] ical & CHILD [address] [place] [address] 2019-06-27 2019-06-27 Electrocardiograph Operator Lab, [facility] [place] 1.2.840. 114 [id number] Univers 10:02:34 10:17:34 Visit Amos Car [place] 350.1.13. 10 ity of REGIONAL 4.2.7.2.686 Ronal as MATERNAL [id number] [facility] CHILD [address] [place] [address] 2019-06-27 2019-06-27 Outpatient R [facility] [id number] Univers 10:00:00 10:00:00 [id number] [facility] 2019-06-27 2019-06-27 [facility] [id number] Univers 10:00:00 10:00:00 AMOS reyes o f [facility] 2019-06-27 2019-06-[address] [facility] 1.2.840.114 [id number] Univers 00:00:00 00:00:00 Amos Coello [place]YE[place] 350.1.13.10 ity of [facility] 4.2.7.2.686 Ronal as MATERNAL [phone] [address] 2019-06-21 2019-06-21 Outpatient R [facility] [id number] Univers 13:00:00 13:00:00 [id number] [facility] 2019-06-21 2019-06-21 [facility] [id number] Univers 13:00:00 13:00:00 RODRIGUE itvivek [facility] 2019-06-21 2019-06-21 Electrocardiograph Operator Lab, [facility] [place] 1.2.840. 114 [id number] Univers 10:55:36 11:04:19 Visit Rodrigue Rodriguez [place] 350.1.13.10 ity of [facility] 4.2.7.2.686 Ronal as MATERNAL [id number] [facility] & CHILD [address] [place] [address] 2019-06-20 2019-06-20 Outpatient [facility] [id number] Univers 10:00:00 10:00:00 RODRIGUE reyes of [facility] 2019-06-15 2019-06-[address] [facility] 1.2.840.114 [id number] Univers 00:00:00 00:00:00 Amos C [place]YE[place]TER 350.1.13.10 ity of [facility] 4.2.7.2.686 Ronal as MATERNAL [id number] [facility] ical & CHILD [address] [place] [address] 2019-06-14 2019-06-[address] [facility] 1.2.840.114 [id number] Univers 00:00:00 00:00:00 Amos C [place]YE[place] W[place]TER 350.1.13.10 ity of [facility] 4.2.7.2.686 Ronal as MATERNAL [phone] [facility] CHILD [address] [place] [address] 2019-06-13 2019-06-13 Electrocardiograph Operator Lab, [facility], [place], operated by [facility] 1.2.840. 114 [id number] Univers 11:02:54 11:17:54 Visit Rodrigue Rodriguez [employer] 350.1.13.10 ity of [facility] 4.2.7.2.686 Ronal as MATERNAL [phone] [facility] & CHILD [address] [place] [address] 2019-06-12 2019-06-[address] [facility] 1.2.840.114 [id number] Univers 00:00:00 00:00:00 Amos C [employer] 350.1.13.10 ity of REGIONAL 4.2.7.2.686 Ronal as MATERNAL [phone] [facility] & CHILD [address] [place] [address] 2019-06-11 2019-06-[address] [facility] [id number] Univers 16:08:11 17:01:39 Visit Amos C [employer] 350.1.13.10 ity of [facility] 4.2.7.2.686 Ronal as MATERNAL [phone] [facility] & CHILD [address] [place] [address] 2019-06-11 2019-06-11 Orders Doctor LOVE 1.2.840.114 [id number] Univers 00:00:00 00:00:00 Only Unassigned, DARION 350.1.13.10 ity of [place] [facility] 4.2.7.2.686 Ronal as [phone] [address] 2019-06-07 2019-06-07 [facility] 1.2.840.114 [id number] Univers 00:00:00 00:00:00 Rodrigue N [employer] 350.1.13.10 it y of [facility] 4.2.7.2.686 Ronal as MATERNAL [phone] Med ical & CHILD [address] [place] [address] 2019-01-12 2019-01-12 Telephone [facility] 1.2.840.114 [id number] Univers 00:00:00 00:00:00 Rodrigue Horvath [employer] 350.1.13.10 it y of [facility] 4.2.7.2.686 Ronal as MATERNAL [phone] [facility] & CHILD [address] [place] [address] 2019-01-11 2019-01-11 Telephone CARMEN Talavera 1.2.840.114 [id number] Univers 00:00:00 00:00:00 [facility] 350.1.13.10 i ty of [place] [phone] [address] 2019-01-08 2019-01-08 Telephone [facility] 1.2.840.114 [id number] Univers 00:00:00 00:00:00 Rodrigue Horvath [employer] 350.1.13.10 it y of [facility] 42.7.2.686 Ronal as MATERNAL [phone] [facility] ical & CHILD [address] [place] [address] 2019-01-05 2019-01-05 Routine Trimester, [facility] Res-1st UNIVERSIT 1.2.840.114 [id number] Univers 11:17:37 12:11:36 Albert Lloyd Y HEALTH 350.1.13.10 [place] [phone] [address] 2019-01-02 2019-01-02 Routine Trimester, [facility] Res-1st UNIVERSIT 1.2.840.114 [id number] Univers 09:53:22 11:04:28 Charli Garcia Y HEALTH 350.1.13.10 [place] [phone] [facility] [address] 2019-01-02 2019-01-02 Orders Doctor IVAN 1.2.840.114 [id number] Univers 00:00:00 00:00:00 Only Unassigned, DARION 350.1.13.10 ity of [place] [facility] 4.2.7.2.686 Ronal as [phone] [facility] [address] 2019-01-01 2019-01-01 Electrocardiograph Operator 3, [facility] Us Room UNIVERSIT 1 .2.840.114 [id number] Univers 14:43:19 16:15:18 Visit Antonieta Ochoa [facility] 350.1.13.10 ity of CL[place] [phone] [facility] [address] 2018-12-27 2018-12-27 Telephone Michael MOTELLY 1.2.840.114 [id number] Univers 00:00:00 00:00:00 Rodrigue Horvath [facility] 350.1.13.10 it y of REGIONAL 4.2.7.2.686 Ronal as MATERNAL [phone] Med ical & CHILD [address] [place] [address] 2018-12-26 2018-12-26 Telephone ZOHREH Rodriguez 1.2.840.114 [id number] Univers 00:00:00 00:00:00 Rodrigue Horvath [facility] 350.1.13.10 it y of REGIONAL 4.2.7.2.686 Ronal as MATERNAL [phone] Med ical & CHILD [address] [place] [address] 2018-12-26 2018-12-26 Patient Michael MOTELLY 1.2.428.685 [id number] Univers 00:00:00 00:00:00 Secure Msg Rodrigue N [facility] 350.1.13.10 ity of REGIONAL 4.2.7.2.686 Ronal as MATERNAL [phone] Med ical & CHILD [address] [place] [address] 2018-12-22 2018-12-22 [facility] 1.2.551.910 [id number] Univers 14:16:35 15:25:59 Rodrigue Horvath [facility] 350.1.13.10 i ty of Visit [facility] 4.2.7.2.686 Ronal as MATERNAL [phone] Med ical & CHILD [address] [facility] 2018-12-22 2018-12-22 Orders Doctor IVAN 1.2.840.114 [id number] Univers 00:00:00 00:00:00 Only Unassigned, DARION 350.1.13.10 ity of [place] [facility] 4.2.7.2.686 Ronal as [phone] [address] Results Test Description Test Time Test Comments Results Result Comments Source CBC WITH DIFF 2020-09-30 03:17:03 Test Item Value Reference Range Interpretation Comme nts WBC (test code = 6690-2) See_Comment [A utomated message] The system which ge nerated this result transmit pipo reference range: 4.30 - 1 1.10 10*3/?L. The reference r christiano was not used to interpr et this result as normal/abnor mal. RBC (test code = 789-8) See_Comment [Au tomated message] The system which ge nerated this result transmit pipo reference range: 3.93 - 5 .25 10*6/?L. The reference r christiano was not used to interpr et this result as normal/abnor mal. HGB (test code = 718-7) 10.8 g/dL 11.6-15.0 L HCT (test code = 4544-3) 36.5 % 35.7-45.2 MCV (test code = 787-2) 76.5 fL 80.6-95.5 L MCH (test code = 785-6) 22.6 pg 25.9-32.8 L MCHC (test code = 786-4) 29.6 g/dL 31.6-35.1 L RDW-SD (test code = 58152-0) 40.7 fL 39.0-49.9 RDW-CV (test code = 788-0) 14.8 % 12.0-15.5 PLT (test code = 777-3) See_Comment H [Au tomated message] The system which ge nerated this result transmit pipo reference range: 166 - 35 8 10*3/?L. The reference range was not used to interpret th is result as normal/abnormal . MPV (test code = 76638-4) 12.3 fL 9.5-12.9 NRBC/100 WBC (test code = See_Comment [ Automated message] The 7971524144) system which ge nerated this result transmit pipo reference range: 0.0 - 10 .0 /100 WBCs. The reference r christiano was not used to interpr et this result as normal/abnor mal. NRBC x10^3 (test code = <0.01 See_Comment [Au tomated message] The 7450552711) system which ge nerated this result transmit pipo reference range: 10*3/?L. The reference range was not u sed to interpret this result as normal/abnormal . GRAN MAT (NEUT) % (test code 53.9 % = 770-8) IMM GRAN % (test code = 0.20 % 2947945249) LYMPH % (test code = 736-9) 33.8 % MONO % (test code = 5905-5) 8.1 % EOS % (test code = 713-8) 3.5 % BASO % (test code = 706-2) 0.5 % GRAN MAT x10^3(ANC) (test 3.26 10*3/uL 1.88-7.09 code = 8442561349) IMM GRAN x10^3 (test code = <0.03 0.00-0.06 3262288870) LYMPH x10^3 (test code = 2.04 10*3/uL 1.32-3.29 731-0) MONO x10^3 (test code = 0.49 10*3/uL 0.33-0.92 742-7) EOS x10^3 (test code = 0.21 10*3/uL 0.03-0.39 711-2) BASO x10^3 (test code = 0.03 10*3/uL 0.01-0.07 704-7) Lab Interpretation (test Abnormal code = 25253-1) [facility] WITH [id number] 03:17:03 Test Item Value Reference Range Interpretation Comments WBC (test code = See_Comment [Automated 6690-2) message] The sy stem which generated this result transmitted reference range : 4.30 - 11.10 10*3/?L. The reference range was not used to interpret this result as normal/abnormal . RBC (test code = See_Comment [Automated 789-8) message] The sy stem which generated this result transmitted reference range : 3.93 - 5.25 10*6/?L. The reference range was not used to interpret this result as normal/abnormal . HGB (test code = 10.8 g/dL 11.6-15.0 L 718-7) HCT (test code = 36.5 % 35.7-45.2 4544-3) MCV (test code = 76.5 fL 80.6-95.5 L 787-2) MCH (test code = 22.6 pg 25.9-32.8 L 785-6) MCHC (test code = 29.6 g/dL 31.6-35.1 L 786-4) RDW-SD (test code = 40.7 fL 39.0-49.9 68852-6) RDW-CV (test code = 14.8 % 12.0-15.5 788-0) PLT (test code = See_Comment H [Automated 777-3) message] The sy stem which generated this result transmitted reference range : 166 - 358 10*3/ ?L. The reference r christiano was not used to interpret this result as normal/abnormal . MPV (test code = 12.3 fL 9.5-12.9 74403-8) NRBC/100 WBC (test See_Comment [Automat ed code = 4482858464) message] The system which generated this result transmitted reference range : 0.0 - 10.0 /100 WBCs. The refer ence range was not u sed to interpret th is result as normal/abnormal . NRBC x10^3 (test code <0.01 See_Comment [Auto mated = 3027017520) message] The s ystem which generated this result transmitted reference range : 10*3/?L. The reference range was not used to interpret this result as normal/abnormal . GRAN MAT (NEUT) % 53.9 % (test code = 770-8) IMM GRAN % (test code 0.20 % = 5092367657) LYMPH % (test code = 33.8 % 736-9) MONO % (test code = 8.1 % 5905-5) EOS % (test code = 3.5 % 713-8) BASO % (test code = 0.5 % 706-2) GRAN MAT x10^3(ANC) 3.26 10*3/uL 1.88-7.09 (test code = 1373301993) IMM GRAN x10^3 (test <0.03 0.00-0.06 code = 4404361752) LYMPH x10^3 (test code 2.04 10*3/uL 1.32-3.29 = 731-0) MONO x10^3 (test code 0.49 10*3/uL 0.33-0.92 = 742-7) EOS x10^3 (test code = 0.21 10*3/uL 0.03-0.39 711-2) BASO x10^3 (test code 0.03 10*3/uL 0.01-0.07 = 704-7) Lab Interpretation Abnormal (test code = 45977-9) [facility] URINALYSIS W SPECIFIC [id number] 16:13:00 Test Item Value Reference Range Interpretation Comments POCT U SP GRAV (test code = 3255) . 1.005-1.025 POCT PH U (test code = 3254) . 5-8 POCT U LEUK EST (test code = 3263) . Negative - Negative POCT U NIT (test code = 3262) . Negative - Negative POCT U PROT (test code = 3259) Trace Negative - Negative POCT U GLU (test code = 3256) Neg Negative - Negative POCT U KETONE (test code = 3258) . Negative - Negative POCT U UROBILI (test code = 3260) . 0.2-1 POCT U BILI (test code = 3261) . Negative - Negative POCT U BLD (test code = 3257) . Negative - Negative POCT U COLOR (test code = 3266) POCT U APPEAR (test code = 3267) [facility] URINALYSIS W SPECIFIC [id number] 16:13:00 Test Item Value Reference Range Interpretation Comments POCT U SP GRAV (test code = 3255) . 1.005-1.025 POCT PH U (test code = 3254) . 5-8 POCT U LEUK EST (test code = 3263) . Negative - Negative POCT U NIT (test code = 3262) . Negative - Negative POCT U PROT (test code = 3259) Trace Negative - Negative POCT U GLU (test code = 3256) Neg Negative - Negative POCT U KETONE (test code = 3258) . Negative - Negative POCT U UROBILI (test code = 3260) . 0.2-1 POCT U BILI (test code = 3261) . Negative - Negative POCT U BLD (test code = 3257) . Negative - Negative POCT U COLOR (test code = 3266) POCT U APPEAR (test code = 3267) [facility]10:54 Test Item Value Reference Range Interpretation Comments APPEARANCE (test code = Clear Clear 7177040019) COLOR (test code = Yellow Yellow 2745631672) PH (test code = 4.8-8.0 1322204639) SP GRAVITY (test code = 1.003-1.030 9429418644) GLU U QUAL (test code = Normal Normal 6519510670) BLOOD (test code = 1+ Negative A 3672920904) KETONES (test code = Negative Negative 1112028452) PROTEIN (test code = Negative Negative 2887-8) UROBILIN (test code = Normal Normal 2245760219) BILIRUBIN (test code = Negative Negative 0084165294) NITRITE (test code = Negative Negative 2172066489) LEUK LORENZO (test code = Negative Negative 4920588312) RBC/HPF (test code = See_Comment [Autom ated message] 3630317459) The system [employer] generated this result transmitted ref erence range: 0 - 3 HP F. The reference range was not used to int erpret this result as normal/abnormal . WBC/HPF (test code = See_Comment [Autom ated message] 6918889675) The system [employer] generated this result transmitted ref erence range: 0 - 5 HP F. The reference range was not used to int erpret this result as normal/abnormal . BACTERIA (test code = Negative Negative 4563645700) MUCOUS (test code = Moderate Negative LPF A 1734092554) SQ EPITH (test code = See_Comment [Auto mated message] 6452826319) The system [employer] generated this result transmitted ref erence range: <=2 HPF. The reference range was not used to int erpret this result as normal/abnormal . Lab Interpretation (test Abnormal code = 55430-7) [facility] Ratio Urine [id number] 01:04:08 Test Item Value Reference Range Interpretation Comments T. PROT U (test code = 2888-6) 8 mg/dL CREAT U (test code = 4428508884) 161.0 mg/dL Protein/Creatinine Ratio Urine 0.0-2.0 (test code = 9433166245) [facility] Bfyyd9623-64-89 00:32:24 Test Item Value Reference Range Interpretation Comments URIC ACID (test code = 1313826454) 5.6 mg/dL 2.9-6.0 Lab Interpretation (test code = Normal 26875-5) [facility] Hospital[facility]um [id number] 00:32:24 Test Item Value Reference Range Interpretation Comments CREATININE (test code 0.74 mg/dL 0.50-1.04 = 1136254055) eGFR (test code = mL/min/1.73m2 4514930508) MCKAYLA (test code = MCKAYLA) Association of Glomerular Filtration Rate (GFR) and Staging of Kidney Disease* + + +- +| GFR (mL/min/1.73 m2) ?| With Kidney Damage ?| ?Without Kidney Damage+ ------+ ----+ ------+| ?>90 ?| ?Stage one ?| ? Normal ?+ -+ + -+| ?60-89 ?| ?Stage two ?| ? Decreased GFR ? + + +- +| ?30-59 ?| ?Stage three ?| ? Stage three ? + + +- +| ?15-29 ?| ?Stage four ? | ? Stage four ?+ -+ + -+| ?<15 (or dialysis) ? ?| ?Stage five ? | ? Stage five ?+ -+ + -+ *Each stage assumes the associated GFR level has been in effect for at least three months. ?Stages 1 to 5, with or without kidney disease, indicate chronic kidney disease. Notes: Determination of stages one and two (with eGFR >59mL/min/1.73 m2) requires estimation of kidney damage for at least three months as defined by structural or functional abnormalities of the kidney, manifested by either:Pathological abnormalities or Markers of kidney damage (including abnormalities in the composition of the blood or urine or abnormalities in imaging tests). [facility] (Asparate Amino Transfer)2020-08-23 00:32:24 Test Item Value Reference Range Interpretation Comments AST(SGOT) (test code = 8633366261) 25 U/L 13-40 Lab Interpretation (test code = Normal 40899-5) [facility] Transferase (SGPT)2020-08-23 00:32:24 Test Item Value Reference Range Interpretation Comments ALTv (test code = 1742-6) 18 U/L 5-35 Lab Interpretation (test code = Normal 63206-5) [facility] Hospital[facility]actate [id number] 00:30:21 Test Item Value Reference Range Interpretation Comments LDH (test code = 7874488592) 446 U/L 300-600 Lab Interpretation (test code = Normal 96473-0) [facility] with [id number] 23:57:35 Test Item Value Reference Range Interpretation Comments WBC (test code = See_Comment [Automated 0790-2) message] The sy stem which generated this result transmitted reference range : 4.30 - 11.10 10*3/?L. The reference range was not used to interpret this result as normal/abnormal . RBC (test code = See_Comment [Automated 680-8) message] The sy stem which generated this result transmitted reference range : 3.93 - 5.25 10*6/?L. The reference range was not used to interpret this result as normal/abnormal . HGB (test code = 9.7 g/dL 11.6-15.0 L 718-7) HCT (test code = 30.8 % 35.7-45.2 L 4544-3) MCV (test code = 77.6 fL 80.6-95.5 L 787-2) MCH (test code = 24.4 pg 25.9-32.8 L 785-6) MCHC (test code = 31.5 g/dL 31.6-35.1 L 786-4) RDW-SD (test code = 41.1 fL 39.0-49.9 66213-8) RDW-CV (test code = 14.6 % 12.0-15.5 788-0) PLT (test code = See_Comment H [Automated 777-3) message] The sy stem which generated this result transmitted reference range : 166 - 358 10*3/ ?L. The reference r christiano was not used to interpret this result as normal/abnormal . MPV (test code = 11.2 fL 9.5-12.9 84380-8) NRBC/100 WBC (test See_Comment [Automat ed code = 1600866122) message] The system which generated this result transmitted reference range : 0.0 - 10.0 /100 WBCs. The refer ence range was not u sed to interpret th is result as normal/abnormal . NRBC x10^3 (test code <0.01 See_Comment [Auto mated = 6512641370) message] The s ystem which generated this result transmitted reference range : 10*3/?L. The reference range was not used to interpret this result as normal/abnormal . GRAN MAT (NEUT) % 59.3 % (test code = 770-8) IMM GRAN % (test code 0.50 % = 0318240797) LYMPH % (test code = 29.6 % 736-9) MONO % (test code = 5.9 % 5905-5) EOS % (test code = 4.2 % 713-8) BASO % (test code = 0.5 % 706-2) GRAN MAT x10^3(ANC) 3.70 10*3/uL 1.88-7.09 (test code = 5523814132) IMM GRAN x10^3 (test 0.03 10*3/uL 0.00-0.06 code = 9968066212) LYMPH x10^3 (test code 1.85 10*3/uL 1.32-3.29 = 731-0) MONO x10^3 (test code 0.37 10*3/uL 0.33-0.92 = 742-7) EOS x10^3 (test code = 0.26 10*3/uL 0.03-0.39 711-2) BASO x10^3 (test code 0.03 10*3/uL 0.01-0.07 = 704-7) Lab Interpretation Abnormal (test code = 41289-9) [facility] (ID NOW RAPID TESTING)2020-08-22 23:50:32 Test Item Value Reference Range Interpretation Comments SARS-CoV-2 Rapid ID NOW Not Detected Not Detected (test code = 81867-5) MCKAYLA (test code = MCKAYLA) ID NOW COVID-19 Assay is an isothermal nucleic acid amplification test intended for the qualitative detection of nucleic acid from SARS-CoV-2 viral RNA in nasopharyngeal ([employer]) specimens. It is used under Emergency Use Authorization (EUA) by FDA. The limit of detection (LOD) of the assay is 125 Genome Equivalents/mL. A positive result is indicative of the presence of SARS-CoV-2 RNA. ?Clinical correlation with patient history and other diagnostic information is necessary to determine patient infection status. A negative (Not Detected) result does not preclude SARS-CoV-2 infection. In patients with clinical symptoms and other tests that are consistent with SARS-CoV-2 infection, negative results should be treated as presumptive negative and a new specimen should be tested with alternative PCR molecular test. Invalid: Please collect a new specimen for repeat patient testing if clinically indicated. Lab Interpretation Normal (test code = 75588-6) [facility] URINALYSIS W SPECIFIC [id number] 19:05:00 Test Item Value Reference Range Interpretation Comments POCT U SP GRAV (test code = . 1.005-1.025 3255) POCT PH U (test code = 3254) . 5-8 POCT U LEUK EST (test code = . Negative - Negative 3263) POCT U NIT (test code = 3262) . Negative - Negative POCT U PROT (test code = 3259) 3+ Negative - Negative POCT U GLU (test code = 3256) negative Negative - Negative POCT U KETONE (test code = 3258) . Negative - Negative POCT U UROBILI (test code = . 0.2-1 3260) POCT U BILI (test code = 3261) . Negative - Negative POCT U BLD (test code = 3257) . Negative - Negative POCT U COLOR (test code = 3266) POCT U APPEAR (test code = 3267) [facility] with Cxkplmivlqxi9857-60-14 11:20:29 Test Item Value Reference Range Interpretation Comments WBC (test code = See_Comment H [Automated 6690-2) message] The system which generated this result transmit pipo reference range : 4.30 - 11.10 10*3/?L. The reference range was not used to interpret this result as normal/abnormal . RBC (test code = See_Comment [Automated 789-8) message] The system which generated this result transmit pipo reference range : 3.93 - 5.25 10*6/?L. The reference range was not used to interpret this result as normal/abnormal . HGB (test code = 9.8 g/dL 11.6-15.0 L 718-7) HCT (test code = 31.0 % 35.7-45.2 L 4544-3) MCV (test code = 77.7 fL 80.6-95.5 L 787-2) MCH (test code = 24.6 pg 25.9-32.8 L 785-6) MCHC (test code = 31.6 g/dL 31.6-35.1 786-4) RDW-SD (test code = 43.3 fL 39.0-49.9 41839-0) RDW-CV (test code = 15.3 % 12.0-15.5 788-0) PLT (test code = See_Comment [Automated 777-3) message] The system which generated this result transmit pipo reference range : 166 - 358 10*3/ ?L. The reference range was not u sed to interpret th is result as normal/abnormal . MPV (test code = 13.1 fL 9.5-12.9 H 35603-4) NRBC/100 WBC (test See_Comment [Automat ed code = 4148689158) message] The system which generated this result transmit pipo reference range : 0.0 - 10.0 /100 WBCs. The reference range was not used to interpret this result as normal/abnormal . NRBC x10^3 (test code <0.01 See_Comment [Auto mated = 1139299717) message] The system which generated this result transmit pipo reference range : 10*3/?L. The reference range was not used to interpret this result as normal/abnormal . GRAN MAT (NEUT) % 77.3 % (test code = 770-8) IMM GRAN % (test code 0.70 % = 0962988266) LYMPH % (test code = 11.4 % 736-9) MONO % (test code = 8.9 % 5905-5) EOS % (test code = 1.4 % 713-8) BASO % (test code = 0.3 % 706-2) GRAN MAT x10^3(ANC) 11.32 10*3/uL 1.88-7.09 H (test code = 7159713952) IMM GRAN x10^3 (test 0.10 10*3/uL 0.00-0.06 H code = 0655315335) LYMPH x10^3 (test code 1.67 10*3/uL 1.32-3.29 = 731-0) MONO x10^3 (test code 1.31 10*3/uL 0.33-0.92 H = 742-7) EOS x10^3 (test code = 0.20 10*3/uL 0.03-0.39 711-2) BASO x10^3 (test code 0.04 10*3/uL 0.01-0.07 = 704-7) Lab Interpretation Abnormal (test code = 64643-1) [facility] with Gqgccaykxkmi2435-45-05 11:20:29 Test Item Value Reference Range Interpretation Comments WBC (test code = See_Comment H [Automated 9790-2) message] The system which generated this result transmit pipo reference range : 4.30 - 11.10 10*3/?L. The reference range was not used to interpret this result as normal/abnormal . RBC (test code = See_Comment [Automated 419-8) message] The system which generated this result transmit pipo reference range : 3.93 - 5.25 10*6/?L. The reference range was not used to interpret this result as normal/abnormal . HGB (test code = 9.8 g/dL 11.6-15.0 L 718-7) HCT (test code = 31.0 % 35.7-45.2 L 4544-3) MCV (test code = 77.7 fL 80.6-95.5 L 787-2) MCH (test code = 24.6 pg 25.9-32.8 L 785-6) MCHC (test code = 31.6 g/dL 31.6-35.1 786-4) RDW-SD (test code = 43.3 fL 39.0-49.9 80697-7) RDW-CV (test code = 15.3 % 12.0-15.5 788-0) PLT (test code = See_Comment [Automated 777-3) message] The system which generated this result transmit pipo reference range : 166 - 358 10*3/ ?L. The reference range was not u sed to interpret th is result as normal/abnormal . MPV (test code = 13.1 fL 9.5-12.9 H 83587-5) NRBC/100 WBC (test See_Comment [Automat ed code = 9485186112) message] The system which generated this result transmit pipo reference range : 0.0 - 10.0 /100 WBCs. The reference range was not used to interpret this result as normal/abnormal . NRBC x10^3 (test code <0.01 See_Comment [Auto mated = 4919674913) message] The system which generated this result transmit pipo reference range : 10*3/?L. The reference range was not used to interpret this result as normal/abnormal . GRAN MAT (NEUT) % 77.3 % (test code = 770-8) IMM GRAN % (test code 0.70 % = 3712532237) LYMPH % (test code = 11.4 % 736-9) MONO % (test code = 8.9 % 5905-5) EOS % (test code = 1.4 % 713-8) BASO % (test code = 0.3 % 706-2) GRAN MAT x10^3(ANC) 11.32 10*3/uL 1.88-7.09 H (test code = 7205185921) IMM GRAN x10^3 (test 0.10 10*3/uL 0.00-0.06 H code = 4249071109) LYMPH x10^3 (test code 1.67 10*3/uL 1.32-3.29 = 731-0) MONO x10^3 (test code 1.31 10*3/uL 0.33-0.92 H = 742-7) EOS x10^3 (test code = 0.20 10*3/uL 0.03-0.39 711-2) BASO x10^3 (test code 0.04 10*3/uL 0.01-0.07 = 704-7) Lab Interpretation Abnormal (test code = 32770-4) [facility] (D) IMMUNE [id number] 23:37:47 Test Item Value Reference Range Interpretation Comments RHIG CANDIDATE? No- see comment Patient i s not a (test code = candidate for R hIg- 5055) Patient is Rh Positive.Perfor [facility] at [facility] Laboratory Services [facility] Blood [address] Free: [phone] A No. [id number] [facility] (D) IMMUNE [id number] 23:37:47 Test Item Value Reference Range Interpretation Comments RHIG CANDIDATE? No- see comment Patient i s not a (test code = candidate for R hIg- 5055) Patient is Rh Positive.Perfor [facility] Laboratory [facility] Blood [address] Free: [phone] A No. [id number] [facility] ONLY - SYPHILIS IGG/[id number] 15:58:05 Test Item Value Reference Range Interpretation Comments Syphilis IgG/IgM (test Non-reactive Non-reactive code = 83245-6) MCKAYLA (test code = MCKAYLA) Non-reactive - No serologic evidence of T. pallidum infection. Cannot exclude incubating or early syphilis. Submit a second specimen in 2-4 weeks if syphilis is clinically suspected. Equivocal - Further testing to follow. Reactive - Further testing to follow. Lab Interpretation (test Normal code = 57235-2) [facility] ONLY - SYPHILIS [id number] 15:58:05 Test Item Value Reference Range Interpretation Comments Syphilis IgG/IgM (test Non-reactive Non-reactive code = 19516-5) MCKAYLA (test code = MCKAYLA) Non-reactive - No serologic evidence of T. pallidum infection. Cannot exclude incubating or early syphilis. Submit a second specimen in 2-4 weeks if syphilis is clinically suspected. Equivocal - Further testing to follow. Reactive - Further testing to follow. Lab Interpretation (test Normal code = 10999-6) [facility] [id number] 02:47:53COVID DMT InterpretationInterpretation/Recommendations:Molecular NAAT Tests for Active Infection with the SARS-CoV-2 Virus:The patient has currently tested negative for the SARS-CoV-2 virus that causesCOVID-19 illness. This most likely indicates that the patient does not have an active infection withthe SARS-CoV-2 virus at this time. However, infection is not completely ruled out as the false negative rate for molecular NAAT testing using a nasopharyngeal sample can be up to 30%, mostly dependent on the timing of sample collection in relation to illness onset and any deficiencies in sampling techniques. If the patient has symptoms concerning for COVID-19 illness, a repeat NAAT test (PCR, Rapid ID Now, etc.) should be performed, at which time the SARS-CoV-2 virus - if present - may have reached a detectable viral load (usually peaking by the end of the first week of symptoms). Tests for IgM and/or IgG Antibodies to the SARS-CoV-2 Virus:Testing for IgM and IgG antibodies approximately 3 weeks after illness onset will likely indicate whether the patient has produced antibodies to the RBIM-AgZ-0hqmpk. However, some patients may take longer to develop detectable antibodies, while some patients who were infected with SARS-CoV-2 may never develop antibodies. While antibodies to SARS-CoV-2 may provide some degree of immunity, at this time the strength and duration of the antibody response is unknown. Interpretation ResultComments:These interpretation comments are based upon all COVID-19 testing the patient has had at [facility], including molecular NAAT testing (more commonly known as PCR testing and Rapid ID Now testing) and antibody testing. It does not take into account any testing that a patient has had outside of the [facility] medical record. [facility] LABORATORY SERVICESCOVID NaudbvmEFIX-UoJ-8 Rapid ID NOW (no units) ? ? Date ? Value ? 08/14/2020 ? Not Detected ? ? ? 07/03/2020 ? Positive (A) ? ? ? 06/27/2020 ? Not Detected ? ? ? 05/30/2020 ? Not Detected ? CoV-2 IgG (no units) ? ? Date ? Value ? 01/24/2020 ? Negative ? ? ? [facility] HospitalLAB ONLY COVID [id number] 02:47:53COVID DMT InterpretationInterpretation/Recommendations:Molecular NAAT Tests for Active Infection with the SARS-CoV-2 Virus:The patient has currently tested negative for the SARS-CoV-2 virus that causesCOVID-19 illness. This most likely indicates that the patient does not have an active infection withthe SARS-CoV-2 virus at this time. However, infection is not completely ruled out as the false negative rate for molecular NAAT testing using a nasopharyngeal sample can be up to 30%, mostly dependent on the timing of sample collection in relation to illness onset and any deficiencies in sampling techniques. If the patient has symptoms concerning for COVID-19 illness, a repeat NAAT test (PCR, Rapid ID Now, etc.) should be performed, at which time the SARS-CoV-2 virus - if present - may have reached a detectable viral load (usually peaking by the end of the first week of symptoms). Tests for IgM and/or IgG Antibodies to the SARS-CoV-2 Virus:Testing for IgM and IgG antibodies approximately 3 weeks after illness onset will likely indicate whether the patient has produced antibodies to the PQQR-EpL-3lmeon. However, some patients may take longer to develop detectable antibodies, while some patients who were infected with SARS-CoV-2 may never develop antibodies. While antibodies to SARS-CoV-2 may provide some degree of immunity, at this time the strength and duration of the antibody response is unknown. Interpretation ResultComments:These interpretation comments are based upon all COVID-19 testing the patient has had at [facility], including molecular NAAT testing (more commonly known as PCR testing and Rapid ID Now testing) and antibody testing. It does not take into account any testing that a patient has had outside of the [facility] medical record. [facility] LABORATORY SERVICESCOVID LdyamcoYQTI-AdZ-0 Rapid ID NOW (no units) ? ? Date ? Value ? 08/14/2020 ? Not Detected ? ? ? 07/03/2020 ? Positive (A) ? ? ? 06/27/2020 ? Not Detected ? ? ? 05/30/2020 ? Not Detected ? CoV-2 IgG (no units) ? ? Date ? Value ? 01/24/2020 ? Negative ? ? ? [facility] HospitalCentral Neuraxial Block 2020-08-15 02:09:12Reynaldo Jennings MD ? ? 08/14/2020 ?9:10 PM Central Neuraxial Block Performed by: Reynaldo Jennings MDAuthorized by: Damion Zeng MD Start Time: ?08/14/2020 9:09 PMEnd Time: ?08/14/2020 9:09 PMReason for Block: ?Patient requestStaff: ?Anesthesiologist: ?Damion Zeng MD ?Resident/TRANSACTION COORDINATOR: ?Reynaldo Jennings MD ?Performed by: ?Resident/TRANSACTION COORDINATOR patient identified, IV checked, risks and benefits explained, monitors and equipment checked, timeout performed, ob surgical consent/approval, pre-op evaluation, surgical consent, site marked and anesthesia consentEpidural: ?Patient Position: ?Sitting ?Prep: Betadine ? ?Monitoring: ?Continuous pulse ox, heart rate and NIBP ?Location: ?Lumbar (1-5) ?Lumbar: ?L3-L4 ?Approach: ?MidlineNeedle and Epidural Catheter: ?Epidural Kit: ?BBraun ?Needle Type: ?Tuohy ?Needle Length: ?3.5 in (8.89 cm) ?Needle Insertion Depth: ?7 Assessment: ?Sensory Level: ?Above M29Iqowj: ? Patientprepped and draped in sterile fashion. ?Appropriate lumbar level was identified and lidocaine was injected into subcutaneous tissue. ?Epidural attempt x 1. Touhy introduced with loss of resistance and catheter placed at depth listed above. Negative aspiration of CSF and test dose negative. The patientwas placed at 30 degrees and connected to the epidural pump at settings below. Remote given to patient and all questions were answered. Counseled the patient on fall risk, reyes catheter. The patient tolerated the procedure without complications. Pump Settings:Zqounjbkad06 mL/hrBolus: 4 mLLockout: 15 minUnMethodist Specialty and [facility] B Surface [id number] 22:49:33 Test Item Value Reference Range Interpretation Comments HBsAg Semi-Quantitative (test code = Negative Negative 5195-3) [facility] B Surface [id number] 22:49:33 Test Item Value Reference Range Interpretation Comments HBsAg Semi-Quantitative (test code = Negative Negative 5195-3) [facility] HospitalUric Acid [id number] 22:20:24 Test Item Value Reference Range Interpretation Comments URIC ACID (test code = 0588882331) 3.7 mg/dL 2.9-6.0 Lab Interpretation (test code = Normal 39322-7) [facility] HospitalSer [id number] 22:20:24 Test Item Value Reference Range Interpretation Comments CREATININE (test code 0.65 mg/dL 0.50-1.04 = 0126315354) eGFR (test code = mL/min/1.73m2 9399384641) MCKAYLA (test code = MCKAYLA) Association of Glomerular Filtration Rate (GFR) and Staging of Kidney Disease* + + +- +| GFR (mL/min/1.73 m2) ?| With Kidney Damage ?| ?Without Kidney Damage+ ------+ ----+ ------+| ?>90 ?| ?Stage one ?| ? Normal ?+ -+ + -+| ?60-89 ?| ?Stage two ?| ? Decreased GFR ? + + +- +| ?30-59 ?| ?Stage three ?| ? Stage three ? + + +- +| ?15-29 ?| ?Stage four ? | ? Stage four ?+ -+ + -+| ?<15 (or dialysis) ? ?| ?Stage five ? | ? Stage five ?+ -+ + -+ *Each stage assumes the associated GFR level has been in effect for at least three months. ?Stages 1 to 5, with or without kidney disease, indicate chronic kidney disease. Notes: Determination of stages one and two (with eGFR >59mL/min/1.73 m2) requires estimation of kidney damage for at least three months as defined by structural or functional abnormalities of the kidney, manifested by either:Pathological abnormalities or Markers of kidney damage (including abnormalities in the composition of the blood or urine or abnormalities in imaging tests). [facility] HospitalSGOT (Asparate Amino Transfer)2020-08-14 22:20:24 Test Item Value Reference Range Interpretation Comments AST(SGOT) (test code = 4820642404) 25 U/L 13-40 Lab Interpretation (test code = Normal 09185-2) [facility] HospitalUric Acid [id number] 22:20:24 Test Item Value Reference Range Interpretation Comments URIC ACID (test code = 6164021616) 3.7 mg/dL 2.9-6.0 Lab Interpretation (test code = Normal 50095-6) [facility] HospitalSer Ppygjqjpsi8963-35-95 22:20:24 Test Item Value Reference Range Interpretation Comments CREATININE (test code 0.65 mg/dL 0.50-1.04 = 3892915899) eGFR (test code = mL/min/1.73m2 1301716154) MCKAYLA (test code = MCKAYLA) Association of Glomerular Filtration Rate (GFR) and Staging of Kidney Disease* + + +- +| GFR (mL/min/1.73 m2) ?| With Kidney Damage ?| ?Without Kidney Damage+ ------+ ----+ ------+| ?>90 ?| ?Stage one ?| ? Normal ?+ -+ + -+| ?60-89 ?| ?Stage two ?| ? Decreased GFR ? + + +- +| ?30-59 ?| ?Stage three ?| ? Stage three ? + + +- +| ?15-29 ?| ?Stage four ? | ? Stage four ?+ -+ + -+| ?<15 (or dialysis) ? ?| ?Stage five ? | ? Stage five ?+ -+ + -+ *Each stage assumes the associated GFR level has been in effect for at least three months. ?Stages 1 to 5, with or without kidney disease, indicate chronic kidney disease. Notes: Determination of stages one and two (with eGFR >59mL/min/1.73 m2) requires estimation of kidney damage for at least three months as defined by structural or functional abnormalities of the kidney, manifested by either:Pathological abnormalities or Markers of kidney damage (including abnormalities in the composition of the blood or urine or abnormalities in imaging tests). [facility] HospitalSGOT (Asparate Amino Transfer)2020-08-14 22:20:24 Test Item Value Reference Range Interpretation Comments AST(SGOT) (test code = 2345784320) 25 U/L 13-40 Lab Interpretation (test code = Normal 10676-5) [facility] HospitalAlanine Amino Transferase (SGPT)2020-08-14 22:20:23 Test Item Value Reference Range Interpretation Comments ALTv (test code = 1742-6) 19 U/L 5-35 Lab Interpretation (test code = Normal 96518-9) [facility] HospitalLactate [id number] 22:20:23 Test Item Value Reference Range Interpretation Comments LDH (test code = 1697428944) 480 U/L 300-600 Lab Interpretation (test code = Normal 37734-9) [facility] HospitalAlanine Amino Transferase (SGPT)2020-08-14 22:20:23 Test Item Value Reference Range Interpretation Comments ALTv (test code = 1742-6) 19 U/L 5-35 Lab Interpretation (test code = Normal 78960-5) [facility] HospitalLactate Keigyccnosrbk5917-17-43 22:20:23 Test Item Value Reference Range Interpretation Comments LDH (test code = 5729623795) 480 U/L 300-600 Lab Interpretation (test code = Normal 84257-7) [facility] HospitalProtein CREAT Ratio Urine [id number] 22:17:39 Test Item Value Reference Range Interpretation Comments T. PROT U (test code = 2888-6) 14 mg/dL CREAT U (test code = 9820926149) 76.1 mg/dL Protein/Creatinine Ratio Urine 0.0-2.0 (test code = 2973643264) [facility] HospitalProtein CREAT Ratio Urine Fklxvr2389-89-86 22:17:39 Test Item Value Reference Range Interpretation Comments T. PROT U (test code = 2888-6) 14 mg/dL CREAT U (test code = 1079791536) 76.1 mg/dL Protein/Creatinine Ratio Urine 0.0-2.0 (test code = 1458862848) [facility] HospitalType and Screen - ONCE [id number] 22:14:38 Test Item Value Reference Range Interpretation Comments ABO & RH (test code A POSITIVE Performe d at UT = 20) [facility] s [address]Hkjs Free: [phone] A No. [id number] IAT (test code = Negative Performed a t MOMB 1185) [facility] s [address]Ulmp Free: [phone] A No. [id number] [facility] and Screen - ONCE [id number] 22:14:38 Test Item Value Reference Range Interpretation Comments ABO & RH (test code A POSITIVE Performe d at UT = 20) [facility] s [address]Zben Free: [phone] A No. [id number] IAT (test code = Negative Performed a t [facility] 1185) [facility] [place], [place] [address]bang sands [address]Cwsx Free: [phone] A No. [id number] [facility] HospitalUrinalysis2021-04-22 21:57:41 Test Item Value Reference Range Interpretation Comments APPEARANCE (test code = Clear Clear 7237069538) COLOR (test code = Yellow Yellow 2276848480) PH (test code = 4.8-8.0 8743005464) SP GRAVITY (test code = 1.003-1.030 6806534184) GLU U QUAL (test code = Normal Normal 7142891627) BLOOD (test code = Negative Negative 7302871822) KETONES (test code = Negative Negative 1369603724) PROTEIN (test code = Negative Negative 2887-8) UROBILIN (test code = Normal Normal 1164914933) BILIRUBIN (test code = Negative Negative 1276091087) NITRITE (test code = Negative Negative 4158097760) LEUK LORENZO (test code = Negative Negative 2150591618) RBC/HPF (test code = See_Comment [Autom ated message] 4572083352) The system [employer] generated this result transmitted ref erence range: 0 - 3 HP F. The reference range was not used to int erpret this result as normal/abnormal . WBC/HPF (test code = See_Comment [Autom ated message] 7494055531) The system [employer] generated this result transmitted ref erence range: 0 - 5 HP F. The reference range was not used to int erpret this result as normal/abnormal . BACTERIA (test code = Negative Negative 4659809348) MUCOUS (test code = Slight Negative LPF A 3963409380) SQ EPITH (test code = See_Comment [Auto mated message] 6832582948) The system [employer] generated this result transmitted ref erence range: <=2 HPF. The reference range was not used to int erpret this result as normal/abnormal . Lab Interpretation (test Abnormal code = 27012-7) [facility] HospitalUrinalysis2021-04-22 21:57:41 Test Item Value Reference Range Interpretation Comments APPEARANCE (test code = Clear Clear 9623118679) COLOR (test code = Yellow Yellow 2091985115) PH (test code = 4.8-8.0 3986318439) SP GRAVITY (test code = 1.003-1.030 8420027814) GLU U QUAL (test code = Normal Normal 6678240007) BLOOD (test code = Negative Negative 6531936614) KETONES (test code = Negative Negative 1348751179) PROTEIN (test code = Negative Negative 2887-8) UROBILIN (test code = Normal Normal 6993060020) BILIRUBIN (test code = Negative Negative 8001983012) NITRITE (test code = Negative Negative 0266984690) LEUK LORENZO (test code = Negative Negative 7026551031) RBC/HPF (test code = See_Comment [Autom ated message] 1083981609) The system [employer] generated this result transmitted ref erence range: 0 - 3 HP F. The reference range was not used to int erpret this result as normal/abnormal . WBC/HPF (test code = See_Comment [Autom ated message] 0457524416) The system [employer] generated this result transmitted ref erence range: 0 - 5 HP F. The reference range was not used to int erpret this result as normal/abnormal . BACTERIA (test code = Negative Negative 2857161149) MUCOUS (test code = Slight Negative LPF A 5936767620) SQ EPITH (test code = See_Comment [Auto mated message] 1522927806) The system [employer] generated this result transmitted ref erence range: <=2 HPF. The reference range was not used to int erpret this result as normal/abnormal . Lab Interpretation (test Abnormal code = 14454-2) [facility] with Nvbebtuakhxt7976-85-96 21:52:33 Test Item Value Reference Range Interpretation Comments WBC (test code = See_Comment [Automated 2190-2) message] The sy stem which generated this result transmitted reference range : 4.30 - 11.10 10*3/?L. The reference range was not used to interpret this result as normal/abnormal . RBC (test code = See_Comment [Automated 789-8) message] The sy stem which generated this result transmitted reference range : 3.93 - 5.25 10*6/?L. The reference range was not used to interpret this result as normal/abnormal . HGB (test code = 10.3 g/dL 11.6-15.0 L 718-7) HCT (test code = 32.9 % 35.7-45.2 L 4544-3) MCV (test code = 78.1 fL 80.6-95.5 L 787-2) MCH (test code = 24.5 pg 25.9-32.8 L 785-6) MCHC (test code = 31.3 g/dL 31.6-35.1 L 786-4) RDW-SD (test code = 43.8 fL 39.0-49.9 29657-6) RDW-CV (test code = 15.6 % 12.0-15.5 H 788-0) PLT (test code = See_Comment [Automated 777-3) message] The sy stem which generated this result transmitted reference range : 166 - 358 10*3/ ?L. The reference r christiano was not used to interpret this result as normal/abnormal . MPV (test code = 12.8 fL 9.5-12.9 76341-2) NRBC/100 WBC (test See_Comment [Automat ed code = 9264425171) message] The system which generated this result transmitted reference range : 0.0 - 10.0 /100 WBCs. The refer ence range was not u sed to interpret th is result as normal/abnormal . NRBC x10^3 (test code <0.01 See_Comment [Auto mated = 6371876231) message] The s ystem which generated this result transmitted reference range : 10*3/?L. The reference range was not used to interpret this result as normal/abnormal . GRAN MAT (NEUT) % 69.8 % (test code = 770-8) IMM GRAN % (test code 0.70 % = 3001850081) LYMPH % (test code = 18.8 % 736-9) MONO % (test code = 9.4 % 5905-5) EOS % (test code = 1.1 % 713-8) BASO % (test code = 0.2 % 706-2) GRAN MAT x10^3(ANC) 6.14 10*3/uL 1.88-7.09 (test code = 0001545732) IMM GRAN x10^3 (test 0.06 10*3/uL 0.00-0.06 code = 3083139445) LYMPH x10^3 (test code 1.66 10*3/uL 1.32-3.29 = 731-0) MONO x10^3 (test code 0.83 10*3/uL 0.33-0.92 = 742-7) EOS x10^3 (test code = 0.10 10*3/uL 0.03-0.39 711-2) BASO x10^3 (test code <0.03 0.01-0.07 = 704-7) Lab Interpretation Abnormal (test code = 26583-7) [facility] with Vpffirwvdetb9042-00-62 21:52:33 Test Item Value Reference Range Interpretation Comments WBC (test code = See_Comment [Automated 8790-2) message] The sy stem which generated this result transmitted reference range : 4.30 - 11.10 10*3/?L. The reference range was not used to interpret this result as normal/abnormal . RBC (test code = See_Comment [Automated 199-8) message] The sy stem which generated this result transmitted reference range : 3.93 - 5.25 10*6/?L. The reference range was not used to interpret this result as normal/abnormal . HGB (test code = 10.3 g/dL 11.6-15.0 L 718-7) HCT (test code = 32.9 % 35.7-45.2 L 4544-3) MCV (test code = 78.1 fL 80.6-95.5 L 787-2) MCH (test code = 24.5 pg 25.9-32.8 L 785-6) MCHC (test code = 31.3 g/dL 31.6-35.1 L 786-4) RDW-SD (test code = 43.8 fL 39.0-49.9 74001-3) RDW-CV (test code = 15.6 % 12.0-15.5 H 788-0) PLT (test code = See_Comment [Automated 777-3) message] The sy stem which generated this result transmitted reference range : 166 - 358 10*3/ ?L. The reference r christiano was not used to interpret this result as normal/abnormal . MPV (test code = 12.8 fL 9.5-12.9 21248-0) NRBC/100 WBC (test See_Comment [Automat ed code = 9189884819) message] The system which generated this result transmitted reference range : 0.0 - 10.0 /100 WBCs. The refer ence range was not u sed to interpret th is result as normal/abnormal . NRBC x10^3 (test code <0.01 See_Comment [Auto mated = 7715241365) message] The s ystem which generated this result transmitted reference range : 10*3/?L. The reference range was not used to interpret this result as normal/abnormal . GRAN MAT (NEUT) % 69.8 % (test code = 770-8) IMM GRAN % (test code 0.70 % = 5060129124) LYMPH % (test code = 18.8 % 736-9) MONO % (test code = 9.4 % 5905-5) EOS % (test code = 1.1 % 713-8) BASO % (test code = 0.2 % 706-2) GRAN MAT x10^3(ANC) 6.14 10*3/uL 1.88-7.09 (test code = 7172192384) IMM GRAN x10^3 (test 0.06 10*3/uL 0.00-0.06 code = 3440004422) LYMPH x10^3 (test code 1.66 10*3/uL 1.32-3.29 = 731-0) MONO x10^3 (test code 0.83 10*3/uL 0.33-0.92 = 742-7) EOS x10^3 (test code = 0.10 10*3/uL 0.03-0.39 711-2) BASO x10^3 (test code <0.03 0.01-0.07 = 704-7) Lab Interpretation Abnormal (test code = 60183-1) [facility] NOW RAPID TESTING)2020-08-14 20:08:02 Test Item Value Reference Range Interpretation Comments SARS-CoV-2 Rapid ID NOW Not Detected Not Detected (test code = 80147-8) MCKAYLA (test code = MCKAYLA) ID NOW COVID-19 Assay is an isothermal nucleic acid amplification test intended for the qualitative detection of nucleic acid from SARS-CoV-2 viral RNA in nasopharyngeal ([employer]) specimens. It is used under Emergency Use Authorization (EUA) by FDA. The limit of detection (LOD) of the assay is 125 Genome Equivalents/mL. A positive result is indicative of the presence of SARS-CoV-2 RNA. ?Clinical correlation with patient history and other diagnostic information is necessary to determine patient infection status. A negative (Not Detected) result does not preclude SARS-CoV-2 infection. In patients with clinical symptoms and other tests that are consistent with SARS-CoV-2 infection, negative results should be treated as presumptive negative and a new specimen should be tested with alternative PCR molecular test. Invalid: Please collect a new specimen for repeat patient testing if clinically indicated. Lab Interpretation Normal (test code = 22634-2) [facility] ([facility] NOW RAPID TESTING)2020-08-14 20:08:02 Test Item Value Reference Range Interpretation Comments SARS-CoV-2 Rapid ID NOW Not Detected Not Detected (test code = 52291-0) MCKAYLA (test code = MCKAYLA) ID NOW COVID-19 Assay is an isothermal nucleic acid amplification test intended for the qualitative detection of nucleic acid from SARS-CoV-2 viral RNA in nasopharyngeal ([employer]ANT) specimens. It is used under Emergency Use Authorization (EUA) by FDA. The limit of detection (LOD) of the assay is 125 Genome Equivalents/mL. A positive result is indicative of the presence of SARS-CoV-2 RNA. ?Clinical correlation with patient history and other diagnostic information is necessary to determine patient infection status. A negative (Not Detected) result does not preclude SARS-CoV-2 infection. In patients with clinical symptoms and other tests that are consistent with SARS-CoV-2 infection, negative results should be treated as presumptive negative and a new specimen should be tested with alternative PCR molecular test. Invalid: Please collect a new specimen for repeat patient testing if clinically indicated. Lab Interpretation Normal (test code = 64235-7) [facility] URINALYSIS W SPECIFIC [id number] 15:53:00 Test Item Value Reference Range Interpretation Comments POCT U SP GRAV (test code = 3255) . 1.005-1.025 POCT PH U (test code = 3254) . 5-8 POCT U LEUK EST (test code = 3263) . Negative - Negative POCT U NIT (test code = 3262) . Negative - Negative POCT U PROT (test code = 3259) neg Negative - Negative POCT U GLU (test code = 3256) neg Negative - Negative POCT U KETONE (test code = 3258) . Negative - Negative POCT U UROBILI (test code = 3260) . 0.2-1 POCT U BILI (test code = 3261) . Negative - Negative POCT U BLD (test code = 3257) . Negative - Negative POCT U COLOR (test code = 3266) . POCT U APPEAR (test code = 3267) . Lab Interpretation (test code = Normal 26681-4) [facility] URINALYSIS W SPECIFIC [id number] 19:15:00 Test Item Value Reference Range Interpretation Comments POCT U SP GRAV (test code = 3255) . 1.005-1.025 POCT PH U (test code = 3254) . 5-8 POCT U LEUK EST (test code = 3263) . Negative - Negative POCT U NIT (test code = 3262) . Negative - Negative POCT U PROT (test code = 3259) Trace Negative - Negative POCT U GLU (test code = 3256) Neg Negative - Negative POCT U KETONE (test code = 3258) . Negative - Negative POCT U UROBILI (test code = 3260) . 0.2-1 POCT U BILI (test code = 3261) . Negative - Negative POCT U BLD (test code = 3257) . Negative - Negative POCT U COLOR (test code = 3266) POCT U APPEAR (test code = 3267) [facility] URINALYSIS W SPECIFIC [id number] 16:27:00 Test Item Value Reference Range Interpretation Comments POCT U SP GRAV (test code = 3255) . 1.005-1.025 POCT PH U (test code = 3254) . 5-8 POCT U LEUK EST (test code = 3263) . Negative - Negative POCT U NIT (test code = 3262) . Negative - Negative POCT U PROT (test code = 3259) Trace Negative - Negative POCT U GLU (test code = 3256) Neg Negative - Negative POCT U KETONE (test code = 3258) . Negative - Negative POCT U UROBILI (test code = 3260) . 0.2-1 POCT U BILI (test code = 3261) . Negative - Negative POCT U BLD (test code = 3257) . Negative - Negative POCT U COLOR (test code = 3266) POCT U APPEAR (test code = 3267) [facility] 22:52:24 Test Item Value Reference Range Interpretation Comments APPEARANCE (test code = Hazy Clear A 0771192198) COLOR (test code = Yellow Yellow 1695642409) PH (test code = 4.8-8.0 7214984835) SP GRAVITY (test code = 1.003-1.030 5441446406) GLU U QUAL (test code = Normal Normal 9527892135) BLOOD (test code = Negative Negative Interfere nce from [id number]) ascorbic acid m ay cause false neg ative results. KETONES (test code = 5 mg/dL Negative A 3347846001) PROTEIN (test code = Negative Negative 2887-8) UROBILIN (test code = Normal Normal 9780969500) BILIRUBIN (test code = Negative Negative 1715186277) NITRITE (test code = Negative Negative 8100482922) LEUK LORENZO (test code = 25/uL Negative A 6406843820) RBC/HPF (test code = See_Comment [Autom ated message] 6266815219) The system [employer] generated this result transmit pipo reference range : 0 - 3 HPF. The refe rence range was not u sed to interpret th is result as normal/abnormal . WBC/HPF (test code = See_Comment [Autom ated message] 5552061533) The system [employer] generated this result transmit pipo reference range : 0 - 5 HPF. The refe rence range was not u sed to interpret th is result as normal/abnormal . BACTERIA (test code = Few Negative A 7643625386) MUCOUS (test code = Slight Negative LPF A 8027149850) SQ EPITH (test code = See_Comment H [Auto mated message] 7309771144) The system [employer] generated this result transmit pipo reference range : <=2 HPF. The refere nce range was not u sed to interpret th is result as normal/abnormal . ASCORBIC ACID (test 40 mg/dL++ code = 0888911827) Lab Interpretation Abnormal (test code = 04765-0) [facility]2020-07-03 22:06:55 Test Item Value Reference Range Interpretation Comments SARS-CoV-2 Rapid ID NOW Positive Not Detected A (test code = 69438-8) MCKAYLA (test code = MCKAYLA) ID NOW COVID-19 Assay is an isothermal nucleic acid amplification test intended for the qualitative detection of nucleic acid from SARS-CoV-2 viral RNA in nasopharyngeal ([employer]ANNING CONSULTANT) specimens. It is used under Emergency Use Authorization (EUA) by FDA. The limit of detection (LOD) of the assay is 125 Genome Equivalents/mL. A positive result is indicative of the presence of SARS-CoV-2 RNA. ?Clinical correlation with patient history and other diagnostic information is necessary to determine patient infection status. A negative (Not Detected) result does not preclude SARS-CoV-2 infection. In patients with clinical symptoms and other tests that are consistent with SARS-CoV-2 infection, negative results should be treated as presumptive negative and a new specimen should be tested with alternative PCR molecular test. Invalid: Please collect a new specimen for repeat patient testing if clinically indicated. Lab Interpretation Abnormal (test code = 01324-5) [facility]2020-06-28 01:35:00 Test Item Value Reference Range Interpretation Comments SARS-CoV-2 Rapid ID NOW Not Detected Not Detected (test code = 23902-4) MCKAYLA (test code = MCKAYLA) ID NOW COVID-19 Assay is an isothermal nucleic acid amplification test intended for the qualitative detection of nucleic acid from SARS-CoV-2 viral RNA in nasopharyngeal (TANNING CONSULTANT) specimens. It is used under Emergency Use Authorization (EUA) by FDA. The limit of detection (LOD) of the assay is 125 Genome Equivalents/mL. A positive result is indicative of the presence of SARS-CoV-2 RNA. ?Clinical correlation with patient history and other diagnostic information is necessary to determine patient infection status. A negative (Not Detected) result does not preclude SARS-CoV-2 infection. In patients with clinical symptoms and other tests that are consistent with SARS-CoV-2 infection, negative results should be treated as presumptive negative and a new specimen should be tested with alternative PCR molecular test. Invalid: Please collect a new specimen for repeat patient testing if clinically indicated. Lab Interpretation Normal (test code = 95077-2) [facility] OR [facility] ONLY - WET [id number] 01:28:00 Test Item Value Reference Range Interpretation Comments CLUE CELLS WET PREP (test code = Moderate None Seen HPF A 3718327502) BACTERIA WET PREP (test code = Many None Seen HPF A 1480208134) WBC WET PREP (test code = Moderate None Seen HPF A 0857792407) RBC WET PREP (test code = Few None Seen HPF A 0048093611) TRICHOMONAS WET PREP (test code = None Seen None Seen HPF 7859399396) YEAST WET PREP (test code = None Seen None Seen HPF 9254416799) Lab Interpretation (test code = Abnormal 19789-1) [facility] ONLY - FERN [id number] 01:26:00 Test Item Value Reference Range Interpretation Comments Fern Test (test code = 8016502257) Negative [facility] URINALYSIS W SPECIFIC [id number] 14:31:00 Test Item Value Reference Range Interpretation Comments POCT U SP GRAV (test code = 3255) . 1.005-1.025 POCT PH U (test code = 3254) . 5-8 POCT U LEUK EST (test code = 3263) . Negative - Negative POCT U NIT (test code = 3262) . Negative - Negative POCT U PROT (test code = 3259) Trace Negative - Negative POCT U GLU (test code = 3256) Neg Negative - Negative POCT U KETONE (test code = 3258) . Negative - Negative POCT U UROBILI (test code = 3260) . 0.2-1 POCT U BILI (test code = 3261) . Negative - Negative POCT U BLD (test code = 3257) . Negative - Negative POCT U COLOR (test code = 3266) POCT U APPEAR (test code = 3267) [facility] URINALYSIS W SPECIFIC [id number] 22:23:00 Test Item Value Reference Range Interpretation Comments POCT U SP GRAV (test code = . 1.005-1.025 3255) POCT PH U (test code = 3254) . 5-8 POCT U LEUK EST (test code = . Negative - Negative 3263) POCT U NIT (test code = 3262) . Negative - Negative POCT U PROT (test code = 3259) trace Negative - Negative POCT U GLU (test code = 3256) 2+ Negative - Negative POCT U KETONE (test code = 3258) . Negative - Negative POCT U UROBILI (test code = . 0.2-1 3260) POCT U BILI (test code = 3261) . Negative - Negative POCT U BLD (test code = 3257) . Negative - Negative POCT U COLOR (test code = 3266) POCT U APPEAR (test code = 3267) Lab Interpretation (test code = Abnormal 26858-0) [facility] URINALYSIS W SPECIFIC [id number] 22:23:00 Test Item Value Reference Range Interpretation Comments POCT U SP GRAV (test code = . 1.005-1.025 error/duplicate 5) POCT PH U (test code = 3254) . 5-8 POCT U LEUK EST (test code = . Negative - Negative 3) POCT U NIT (test code = . Negative - Negative 2) POCT U PROT (test code = . Negative - Negative 9) POCT U GLU (test code = . Negative - Negative 6) POCT U KETONE (test code = . Negative - Negative 8) POCT U UROBILI (test code = . 0.2-1 3260) POCT U BILI (test code = . Negative - Negative 1) POCT U BLD (test code = . Negative - Negative 7) POCT U COLOR (test code = 3266) POCT U APPEAR (test code = 3267) [facility] URINALYSIS W SPECIFIC [id number] 22:22:00 Test Item Value Reference Range Interpretation Comments POCT U SP GRAV (test code = 3255) . 1.005-1.025 POCT PH U (test code = 3254) . 5-8 POCT U LEUK EST (test code = 3263) . Negative - Negative POCT U NIT (test code = 3262) . Negative - Negative POCT U PROT (test code = 3259) 1+ Negative - Negative POCT U GLU (test code = 3256) Trace Negative - Negative POCT U KETONE (test code = 3258) . Negative - Negative POCT U UROBILI (test code = 3260) . 0.2-1 POCT U BILI (test code = 3261) . Negative - Negative POCT U BLD (test code = 3257) . Negative - Negative POCT U COLOR (test code = 3266) POCT U APPEAR (test code = 3267) [facility]ID [facility]2020-05-30 19:18:00 Test Item Value Reference Range Interpretation Comments SARS-CoV-2 Rapid ID NOW Not Detected Not Detected (test code = 40363-3) MCKAYLA (test code = MCKAYLA) ID NOW COVID-19 Assay is an isothermal nucleic acid amplification test intended for the qualitative detection of nucleic acid from SARS-CoV-2 viral RNA in nasopharyngeal ([employer]SULTANT) specimens. It is used under Emergency Use Authorization (EUA) by FDA. The limit of detection (LOD) of the assay is 125 Genome Equivalents/mL. A positive result is indicative of the presence of SARS-CoV-2 RNA. ?Clinical correlation with patient history and other diagnostic information is necessary to determine patient infection status. A negative (Not Detected) result does not preclude SARS-CoV-2 infection. In patients with clinical symptoms and other tests that are consistent with SARS-CoV-2 infection, negative results should be treated as presumptive negative and a new specimen should be tested with alternative PCR molecular test. Invalid: Please collect a new specimen for repeat patient testing if clinically indicated. Lab Interpretation Normal (test code = 67143-9) [facility] [id number] 19:12:00 Test Item Value Reference Range Interpretation Comments TROPONIN I (test <0.012 See_Comment [Automated code = 1311428944) message] The system which generated this result transmitted reference range : <=0.034 ng/mL. The reference range was not used to interpr et this result as normal/abnormal . MCKAYLA (test code = Equal or Less than MCKAYLA) 0.034 ng/ml---Normal ?Note: Cardiac troponin begins to rise 3-4 hours after the onset of ischemia. Repeat in 4-6 hours if the sample was drawn within 3-4 hours of the onset of the symptom and found normal. Between 0.035 and 0.120 ng/mL--- Borderline. Questionable myocardial injury or necrosis ? ?Note: Serial measurement may be necessary to confirm or exclude the diagnosis of myocardial injury or necrosis; Clinical correlation (symptoms, EKGs, imaging studies, and others) required; Repeat in 4-6 hours if clinically indicated. ? Equal or Higher than 0.121 ng/mL---Abnormal. Myocardial Injury or Necrosis Likely ? Biotin has been reported to cause a negative bias, interpret results relative to patient's use of biotin. ? Lab Interpretation Normal (test code = 20418-6) [facility] [id number] 19:09:00 Test Item Value Reference Range Interpretation Comments NT-proBNP (test code 32 pg/mL See_Comment [Autom ated = 1601748291) message] The system which generated this result transmitted reference range : <=125. The reference range was not used to interpret this result as normal/abnormal . MCKAYLA (test code = MCKAYLA) Biotin has been reported to cause a negative bias, interpret results relative to patient's use of biotin. Lab Interpretation Normal (test code = 73481-5) [facility] (NA, K, CL, CO2, GLUCOSE, BUN, CREATININE, CA)2020-05-30 19:00:00 Test Item Value Reference Range Interpretation Comments NA (test code = 135 mmol/L 135-145 1722008608) K (test code = 3.3 mmol/L 3.5-5 L 7214983849) CL (test code = 106 mmol/L 98-108 4573920107) CO2 TOTAL (test code = 24 mmol/L 23-31 7020091185) AGAP (test code = 2-16 0193283277) BUN (test code = 8 mg/dL 7-23 9186242975) GLUCOSE (test code = 109 mg/dL 70-110 7534193300) CREATININE (test code = 0.59 mg/dL 0.5-1.04 1424340097) CALCIUM (test code = 9.2 mg/dL 8.6-10.6 9210774491) eGFR Calculation mL/min/1.73m2 (Non-) (test code = 4373024758) eGFR Calculation mL/min/1.73m2 () (test code = 2425290404) MCKAYLA (test code = MCKAYLA) Association of Glomerular Filtration Rate (GFR) and Staging of Kidney Disease* + --+ --+ ------+| GFR (mL/min/1.73 m2) ?| With Kidney Damage ?| ?Without Kidney Damage+ --------+ --------+ +| ?>90 ?| ?Stage one ?| ? Normal ?+ ---+ ---+ -------+| ?60-89 ?| ?Stage two ?| ? Decreased GFR ? + --+ --+ ------+| ?30-59 ?| ?Stage three ?| ? Stage three ? + --+ --+ ------+| ?15-29 ?| ?Stage four ? | ? Stage four ?+ ---+ ---+ -------+| ?<15 (or dialysis) ? ?| ?Stage five ? | ? Stage five ?+ ---+ ---+ -------+ *Each stage assumes the associated GFR level has been in effect for at least three months. ?Stages 1 to 5, with or without kidney disease, indicate chronic kidney disease. Notes: Determination of stages one and two (with eGFR >59mL/min/1.73 m2) requires estimation of kidney damage for at least three months as defined by structural or functional abnormalities of the kidney, manifested by either:Pathological abnormalities or Markers of kidney damage (including abnormalities in the composition of the blood or urine or abnormalities in imaging tests). Lab Interpretation Abnormal (test code = 72654-8) [facility] (ALB, T.PRO, BILI T, BU/BC, ALT, AST, ALK PHOS)2020-05-30 19:00:00 Test Item Value Reference Range Interpretation Comments TOTAL BILI (test code = 8475026119) 0.3 mg/dL 0.1-1.1 BILI UNCON (test code = 0449673241) 0.3 mg/dL 0.1-1.1 BILI CONJ (test code = 6640178685) 0.0 mg/dL 0-0.3 T PROTEIN (test code = 0097714745) 6.4 g/dL 6.3-8.2 ALBUMIN (test code = 6674681607) 3.4 g/dL 3.5-5 L ALK PHOS (test code = 3340269658) 106 U/L 34-122 ALTv (test code = 1742-6) 11 U/L 5-35 AST(SGOT) (test code = 5192558741) 18 U/L 13-40 Lab Interpretation (test code = Abnormal 43269-0) [facility] HospitalLipase [id number] 19:00:00 Test Item Value Reference Range Interpretation Comments LIPASE (test code = 3638487580) 40 U/L 0-220 Lab Interpretation (test code = Normal 52094-0) [facility]Urinalysis2021-[facility] 18:58:00 Test Item Value Reference Range Interpretation Comments APPEARANCE (test code = Hazy Clear A 8728464149) COLOR (test code = Yellow Yellow 8594899068) PH (test code = 4.8-8.0 2108172415) SP GRAVITY (test code = 1.003-1.030 0252384226) GLU U QUAL (test code = 500 mg/dL Normal A 0012908045) BLOOD (test code = Negative Negative INTERFERE NCE FROM 9554500565) ASCORBIC ACID M AY CAUSE FALSE NEG ATIVE RESULT KETONES (test code = 5 mg/dL Negative A 6369666543) PROTEIN (test code = Negative Negative 2887-8) UROBILIN (test code = 2.0 mg/dL Normal A 3992747449) BILIRUBIN (test code = Negative Negative 7184544066) NITRITE (test code = Negative Negative 1006876351) LEUK LORENZO (test code = Negative Negative 9060885013) RBC/HPF (test code = See_Comment [Autom ated message] 4766687421) The system [employer] generated this result transmitted ref erence range: 0 - 3 HP F. The reference range was not used to int erpret this result as normal/abnormal . WBC/HPF (test code = See_Comment [Autom ated message] 9985837174) The system whic h generated this result transmitted ref erence range: 0 - 5 HP F. The reference range was not used to int erpret this result as normal/abnormal . BACTERIA (test code = Few Negative A 6104178318) MUCOUS (test code = Moderate Negative LPF A 7351394014) SQ EPITH (test code = HPF 5520347986) Lab Interpretation Abnormal (test code = 41239-3) [facility]D-[id number] 18:53:00 Test Item Value Reference Interpretation Comments Range D-DIMER (test code = See_Comment H [Autom ated 4835298950) message] The system which generated this result transmitted reference range : <0.41 ?g/mL (FEU). The reference range was not used to interpret this result as normal/abnormal . MCKAYLA (test code = This test may be MCKAYLA) used in conjunction with a clinical pretest probability (PTP) assessment model to exclude venous thromboembolism (VTE) in patients suspected of deep venous thrombosis (DVT) and pulmonary embolism (PE) A D-Dimer value less than 0.50 ?g/ml (FEU) has a negative predicative value of 96 to 100% (95% CI)and 97 to 100% (95% CI) as an aid in the diagnosis of deep vein thrombosis (DVT) and pulmonary embolism when there is low or moderate pretest probability of PE or DVT. D-Dimer values are expressed in initial fibrinogen equivalent units (FEU)" The assay results should be used with other information, including the clinical context, in forming a diagnosis. Lab Interpretation Abnormal (test code = 84101-8) [facility] with [id number] 18:39:00 Test Item Value Reference Range Interpretation Comments WBC (test code = See_Comment [Automated 1590-2) message] The sy stem which generated this result transmitted reference range : 4.30 - 11.10 10*3/?L. The reference range was not used to interpret this result as normal/abnormal . RBC (test code = See_Comment [Automated 906-8) message] The sy stem which generated this result transmitted reference range : 3.93 - 5.25 10*6/?L. The reference range was not used to interpret this result as normal/abnormal . HGB (test code = 9.8 g/dL 11.6-15 L 718-7) HCT (test code = 31.2 % 35.7-45.2 L 4544-3) MCV (test code = 78.8 fL 80.6-95.5 L 787-2) MCH (test code = 24.7 pg 25.9-32.8 L 785-6) MCHC (test code = 31.4 g/dL 31.6-35.1 L 786-4) RDW-SD (test code = 41.8 fL 39-49.9 40064-4) RDW-CV (test code = 14.6 % 12-15.5 788-0) PLT (test code = See_Comment [Automated 777-3) message] The sy stem which generated this result transmitted reference range : 166 - 358 10*3/ ?L. The reference r christiano was not used to interpret this result as normal/abnormal . MPV (test code = 12.0 fL 9.5-12.9 08697-4) NRBC/100 WBC (test See_Comment [Automat ed code = 6085646468) message] The system which generated this result transmitted reference range : 0.0 - 10.0 /100 WBCs. The refer ence range was not u sed to interpret th is result as normal/abnormal . NRBC x10^3 (test code <0.01 See_Comment [Auto mated = 0887714377) message] The s ystem which generated this result transmitted reference range : 10*3/?L. The reference range was not used to interpret this result as normal/abnormal . GRAN MAT (NEUT) % 77.1 % (test code = 770-8) IMM GRAN % (test code 0.70 % = 0371166731) LYMPH % (test code = 14.5 % 736-9) MONO % (test code = 6.3 % 5905-5) EOS % (test code = 1.2 % 713-8) BASO % (test code = 0.2 % 706-2) GRAN MAT x10^3(ANC) 7.56 10*3/uL 1.88-7.09 H (test code = 7506769483) IMM GRAN x10^3 (test 0.07 10*3/uL 0-0.06 H code = 0082889944) LYMPH x10^3 (test code 1.42 10*3/uL 1.32-3.29 = 731-0) MONO x10^3 (test code 0.62 10*3/uL 0.33-0.92 = 742-7) EOS x10^3 (test code = 0.12 10*3/uL 0.03-0.39 711-2) BASO x10^3 (test code <0.03 0.01-0.07 = 704-7) Lab Interpretation Abnormal (test code = 67166-0) [facility] URINALYSIS W SPECIFIC [id number] 20:25:00 Test Item Value Reference Range Interpretation Comments POCT U SP GRAV (test code = 3255) . 1.005-1.025 POCT PH U (test code = 3254) . 5-8 POCT U LEUK EST (test code = 3263) . Negative - Negative POCT U NIT (test code = 3262) . Negative - Negative POCT U PROT (test code = 3259) 3+ Negative - Negative POCT U GLU (test code = 3256) Neg Negative - Negative POCT U KETONE (test code = 3258) . Negative - Negative POCT U UROBILI (test code = 3260) . 0.2-1 POCT U BILI (test code = 3261) . Negative - Negative POCT U BLD (test code = 3257) . Negative - Negative POCT U COLOR (test code = 3266) POCT U APPEAR (test code = 3267) [facility] URINALYSIS W SPECIFIC [id number] 22:14:00 Test Item Value Reference Range Interpretation Comments POCT U SP GRAV (test code = 3255) . 1.005-1.025 POCT PH U (test code = 3254) . 5-8 POCT U LEUK EST (test code = 3263) . Negative - Negative POCT U NIT (test code = 3262) . Negative - Negative POCT U PROT (test code = 3259) Trace Negative - Negative POCT U GLU (test code = 3256) Neg Negative - Negative POCT U KETONE (test code = 3258) . Negative - Negative POCT U UROBILI (test code = 3260) . 0.2-1 POCT U BILI (test code = 3261) . Negative - Negative POCT U BLD (test code = 3257) . Negative - Negative POCT U COLOR (test code = 3266) POCT U APPEAR (test code = 3267) [facility] URINALYSIS W SPECIFIC [id number] 17:06:00 Test Item Value Reference Range Interpretation Comments POCT U SP GRAV (test code = 3255) . 1.005-1.025 POCT PH U (test code = 3254) . 5-8 POCT U LEUK EST (test code = 3263) . Negative - Negative POCT U NIT (test code = 3262) . Negative - Negative POCT U PROT (test code = 3259) Trace Negative - Negative POCT U GLU (test code = 3256) Neg Negative - Negative POCT U KETONE (test code = 3258) . Negative - Negative POCT U UROBILI (test code = 3260) . 0.2-1 POCT U BILI (test code = 3261) . Negative - Negative POCT U BLD (test code = 3257) . Negative - Negative POCT U COLOR (test code = 3266) POCT U APPEAR (test code = 3267) [facility] URINALYSIS W SPECIFIC [id number] 16:44:00 Test Item Value Reference Range Interpretation Comments POCT U SP GRAV (test code = 3255) . 1.005-1.025 POCT PH U (test code = 3254) . 5-8 POCT U LEUK EST (test code = 3263) . Negative - Negative POCT U NIT (test code = 3262) . Negative - Negative POCT U PROT (test code = 3259) Trace Negative - Negative POCT U GLU (test code = 3256) Neg Negative - Negative POCT U KETONE (test code = 3258) . Negative - Negative POCT U UROBILI (test code = 3260) . 0.2-1 POCT U BILI (test code = 3261) . Negative - Negative POCT U BLD (test code = 3257) . Negative - Negative POCT U COLOR (test code = 3266) POCT U APPEAR (test code = 3267) [facility] URINALYSIS W/O SPECIFIC [id number] 19:26:00 Test Item Value Reference Range Interpretation Comments POCT PH U (test code = 3254) 6 mg/dl 5-8 POCT U LEUK EST (test code = 2+ Negative - Negative 3263) POCT U NIT (test code = 3262) Neg Negative - Negative POCT U PROT (test code = 3259) Trace Negative - Negative POCT U GLU (test code = 3256) Neg Negative - Negative POCT U KETONE (test code = 3258) None Negative - Negative POCT U BLD (test code = 3257) Neg Negative - Negative [facility] [id number] 19:26:00 Test Item Value Reference Range Interpretation Comments POCT PREG (test code = 1605) Positive On board controls acceptable with C Yes Line (test code = 3574) POCT PREG LOT # (test code = 3575) POCT PREG TEST DATE (test code = 3576) [facility] [id number] 10:00:00 Test Item Value Reference Range Interpretation Comments CULTURE (BEAKER) (test No growth in 5 days code = 1095) BLOOD [id number] 10:00:00 Test Item Value Reference Range Interpretation Comments CULTURE (BEAKER) (test No growth in 5 days code = 1095) CAMI TITER AND [id number] 09:54:00 Test Item Value Reference Range Interpretation Comments CAMI TITER (BEAKER) (test code = :640 1541) CAMI PATTERN (BEAKER) (test code = Nucleolar 1781) ANTI-NUCLEAR ANTIBODY (CAMI)2019-07-12 09:53:00 Test Item Value Reference Range Interpretation Comments ANTI-NUCLEAR ANTIBODY (CAMI) (BEAKER) Positive Negative A (test code = 418) Test performed by IFA method.ANTI-MITOCHONDRIAL AB, REFLEX TO [id number] 08:58:00 Test Item Value Reference Range Interpretation Comments SCAN RESULT (test code = 2807200) TISSUE [id number] 17:32:00Surgical Pathology Report Case: [id number] Authorizing Provider: Shimon Logan MD Collected: 07/09/2019 1729 Ordering Location: [address] Received: 07/10/2019 0902 Service Pathologist: Babak Hermosillo MD Specimens: A) - Biopsy, Liver B) -Gallbladder A. LIVER BIOPSY- PORTAL TRACTS WITH MILD CHRONIC INFLAMMATION- NO SIGNIFICANT STEATOSIS SEEN- NO LOBULAR INFLAMMATION OR BALLOONING DEGENERATION SEEN- NO SIGNIFICANT FIBROSIS SEEN- NO STAINABLE IRON - SEE COMMENTB. GALLBLADDER, CHOLECYSTECTOMY- CHRONIC CHOLECYSTITIS- CHOLELITHIASIS Signing PathologistDirect Phone Line: [phone] signed by Babak Hermosillo MD on 07/11/2019 at 5:32 PMClinical correlation with serology is recommended.79461, 76651, 00538 X 4Biliary calculus of other site with [...] stippling. The wall measures 0.3 cm thick. Food Safety Officer sections are submitted in B1-B2, with the inked cystic duct margin in B1. PA/ewPerformed.The interpretation of this case included the use of immunohistochemistry or special stainson block A.Trichrome- no significant fibrosis reticulin- normal rfhkpnbcyxPsio-xyzwrsrjXMR-G- no abnormal intracellular depositsControl Slides Examined: In-house known positive controls were evaluatedalong with the test tissue. These control slides run alongside of the patients sample show appropriate staining. Internal positive and negative controls when available are evaluated Immunohistochemistry technical testing was performed at [facility], Pathology Laboratory where itwas developed and its [...] qualified to perform high complexity clinical laboratory testing.[facility], Department of Pathology, [address] [place] [id number], [facility], [address] [place] [address] [id number], [facility], Department of [facility]ology, [address] [place] [id number], WQLNHXT FUNCTION PANEL 2019-07-10 05:21:00 Test Item Value Reference Range [...] code = 314 U/L 6-55 H 347) Customer Experience Manager ID - JACOBY MBASIC METABOLIC [id number] 05:21:00 Test Item Value Reference Range Interpretation [...] S NOT APPLICABLE FOR DIALYSIS PATIEN TS. Customer Experience Manager ID - JACOBY MCBC W/PLT COUNT & AUTO [id number] 04:52:00 Test Item Value Reference Range Interpretation [...] PERCENT (BEAKER) (test code = 2801) POCT-GLUCOSE [id number] 21:29:00 Test Item Value Reference Range Interpretation Comments POC-GLUCOSE METER 99 mg/dL 70-110 : TESTED A T [facility] ([facility] (test code = [facility], 153) 22650: Customer Experience Manager/Techni angelita ID = [id number] for LAUREZACH GuerreroLYN POCT-GLUCOSE [id number] 18:23:00 Test Item Value Reference Range Interpretation Comments POC-GLUCOSE METER 109 mg/dL 70-110 : TESTED A T [facility] ([facility] (test code = [facility], 153) 11013: Customer Experience Manager/Techni angelita ID = [id number] for HERMAN MAHAN POCT-GLUCOSE [id number] 12:24:00 Test Item Value Reference Range Interpretation Comments POC-GLUCOSE METER 79 mg/dL 70-110 : TESTED A T [facility] 67[facility] ([facility]) (test code = [facility], 153) 32222: Customer Experience Manager/Techni angelita ID = [id number] for PREM YEE POCT-GLUCOSE [id number] 10:15:00 Test Item Value Reference Range Interpretation Comments POC-GLUCOSE METER 84 mg/dL 70-110 : TESTED A T [facility] 67[facility] ([facility]) (test code = [facility], 153) 19718: Customer Experience Manager/Techni angelita ID = [id number] for FOUZIA FLOWER [id number] 07:13:00 Test Item Value Reference Range Interpretation Comments LIPASE (BEAKER) (test code = 749) 11 U/L 8-78 Customer Experience Manager ID - DAINA FHEPATIC FUNCTION [id number] 05:52:00 Test Item Value Reference Range Interpretation [...] code = 388 U/L 6-55 H 347) Customer Experience Manager ID - JACOBY MBASIC METABOLIC [id number] 05:52:00 Test Item Value Reference Range Interpretation [...] S NOT APPLICABLE FOR DIALYSIS PATIEN TS. Customer Experience Manager ID - JACOBY MCBC W/PLT COUNT & AUTO [id number] 05:16:00 Test Item Value Reference Range Interpretation [...] PERCENT (BEAKER) (test code = 2801) PROTHROMBIN [id number] 05:12:00 Test Item Value Reference Range Interpretation Comments PROTIME (ALBERTO) (test code = 13.3 seconds 11.9-14.2 759) INR (ALBERTO) (test code = 370) 1.0 <=5.9 Effective 09/20/2018: PT Reference Range ChangeNew: 11.9-14.2 Previous: 11.7- 14.7RECOMMENDED COUMADIN/WARFARIN INR THERAPY RANGESSTANDARD DOSE: 2.0-3.0 Includes: PROPHYLAXIS for venous thrombosis, systemic embolization; TREATMENT for venous thrombosis and/or pulmonary embolus.HIGH RISK: Target INR is2.5-3.5 for patients wiht mechanical heart valves.POCT-GLUCOSE [id number] 22:53:00 Test Item Value Reference Range Interpretation Comments POC-GLUCOSE METER 106 mg/dL 70-110 : TESTED A T [facility] 6720 (ALBERTO) (test code = [facility], 1538) 967[address]: Customer Experience Manager/Techni angelita ID = [id number] for LAISHA PALENCIA HEMOGLOBIN [id number] 19:49:00 Test Item Value Reference Range Interpretation Comments HEMOGLOBIN A1C (ALBERTO) (test code = 5.2 % 4.3-6.1 368) POCT-GLUCOSE [id number] 18:29:00 Test Item Value Reference Range Interpretation Comments POC-GLUCOSE METER 107 mg/dL 70-110 : TESTED A T [facility] 6720 ([employer]) (test code = [facility], 153) 01914: Customer Experience Manager/Techni angelita ID = [id number] for AMADO HARRISONYL [id number] 15:50:00 Test Item Value Reference Range Interpretation Comments LIPASE (ALBERTO) (test code = 749) 12 U/L 8-78 Customer Experience Manager ID - BSPOCT-GLUCOSE [id number] 12:24:00 Test Item Value Reference Range Interpretation Comments POC-GLUCOSE METER 85 mg/dL 70-110 : TESTED A T [facility] 6720 ([employer]) (test code = [facility], 153) 51098: Customer Experience Manager/Techni angelita ID = [id number] for HUNTER, ERWIN FL, FLUORO, NON-SPECIFIC, UP TO 1 [id number] 10:29:00Reason for exam:->ercpFINAL REPORT A fluoroscopic unit was utilized for a procedure performed in the operating room. No interpretation was requested. Please refer to the operative report regarding findings. Please refer to PACS for patient radiation dose information. Signed: JR Bryon, Jose Maria Kiara Verified Date/Time: 07/08/2019 10:29:57 Reading Location: [address] Neuro Reading Room POCT-GLUCOSE [id number] 06:50:00 Test Item Value Reference Range Interpretation Comments POC-GLUCOSE METER 110 mg/dL 70-110 : TESTED A T [facility] ([employer]) (test code = QUITA [facility], 1538) 49278: Customer Experience Manager/Techni angelita ID = [id number] for MM, MALIHA U/S, ABDOMINAL, [id number] 05:50:00Abdomen limited area? Add comment if clarification [...] Yarelis Danielle MDReport Verified Date/Time: 07/08/2019 05:50:43 HEPATIC FUNCTION [id number] 05:40:00 Test Item Value Reference Range Interpretation [...] code = 501 U/L 6-55 H 347) Customer Experience Manager ID - JAOCBY MBASIC METABOLIC [id number] 05:40:00 Test Item Value Reference Range Interpretation [...] S NOT APPLICABLE FOR DIALYSIS PATIEN TS. Customer Experience Manager ID - JACOBY MCBC W/PLT COUNT & AUTO [id number] 05:33:00 Test Item Value Reference Range Interpretation [...] PERCENT (BEAKER) (test code = 2801) PROTHROMBIN [id number] 05:26:00 Test Item Value Reference Range Interpretation [...] INR is2.5-3.5 for patients wiht mechanical heart valves.[id number] 21:54:00 Test Item Value Reference Range Interpretation Comments ALPHA-1 ANTITRYPSIN (PERDOAKER) 133.40 mg/dL 90.00-200.00 (test code = 502) Customer Experience Manager ID - VINITA EIMMUNOGLOBULIN G (IGG)2019-07-07 21:44:00 Test Item Value Reference Range Interpretation Comments IMMUNOGLOBULIN G (IGG) (PEDROAKER) 1269 mg/dL 540-1,822 (test code = 427) Customer Experience Manager ID - VINITA EPOCT-GLUCOSE [id number] 21:43:00 Test Item Value Reference Range Interpretation Comments POC-GLUCOSE METER 75 mg/dL 70-110 : TESTED A T [facility] (ALBERTO) (test code = QUITA [facility]so [facility], 1538) 65[address]: Customer Experience Manager/Techni angelita ID = [id number] for MALIHA KELSEY HEPATITIS A ANTIBODY, [id number] 20:00:00 Test Item Value Reference Range Interpretation Comments HEPATITIS A IGG ANTIBODY (ALBERTO) Reactive Nonreactive A (test code = 2797) Customer Experience Manager ID - VINITA EPREGNANCY SCREEN, [id number] 19:59:00 Test Item Value Reference Range Interpretation Comments TEST URINE (ALBERTO) (test Negative code = 583) HEPATITIS B SURFACE [id number] 19:52:00 Test Item Value Reference Range Interpretation Comments HEPATITIS B SURFACE ANTIBODY 26.5 mIU/mL <8.0 H (BEAKER) (test code = 647) Customer Experience Manager ID - VINITA EHEPATITIS B CORE ANTIBODY, [id number] 19:52:00 Test Item Value Reference Range Interpretation Comments HEPATITIS B CORE TOTAL ANTIBODY Nonreactive Nonreactive (BEAKER) (test code = 497) Customer Experience Manager ID - VINITA EHEPATITIS PANEL, [id number] 19:52:00 Test Item Value Reference Range Interpretation Comments HEPATITIS A IGM ANTIBODY (BEAKER) Nonreactive Nonreactive (test code = 498) HEPATITIS B CORE IGM ANTIBODY Nonreactive Nonreactive (BEAKER) (test code = 645) HEPATITIS C ANTIBODY (BEAKER) Nonreactive Nonreactive (test code = 367) HEPATITIS B SURFACE ANTIGEN (2) Nonreactive Nonreactive (BEAKER) (test code = 2585) Customer Experience Manager ID - VINITA EPOCT-GLUCOSE [id number] 18:10:00 Test Item Value Reference Range Interpretation Comments POC-GLUCOSE METER 72 mg/dL 70-110 : TESTED A T [facility] (BEAKER) (test code = [facility] [place], 1538) 54[address]: Customer Experience Manager/Techni angelita ID = [id number] for ERWIN HARRISON [id number] 17:41:00 Test Item Value Reference Range Interpretation Comments FERRITIN (BEAKER) (test code = 361) 109 ng/mL 5-275 Customer Experience Manager ID - VINITA WALE, TIBC, % SAT. (WITHOUT FERRITIN)2019-07-07 17:21:00 Test Item Value Reference Range Interpretation Comments IRON (BEAKER) (test code = 547) 98.0 ug/dL 40.0-160.0 TOTAL IRON BINDING CAPACITY 308 ug/dL 250-450 (BEAKER) (test code = 769) IRON % SATURATION (2) (BEAKER) 32 % 20-55 (test code = 2590) Customer Experience Manager ID - VINITA EPT/[id number] 17:08:00 Test Item Value Reference Range Interpretation [...] is2.5-3.5 for patients wiht mechanical heart valves.HEPATOBILIARY [id number] 15:52:00FINAL REPORT PROCEDURE: HEPATOBILIARY SCAN CPT CODE: 60157 INDICATION: epigastric pain, cholelithiasis PROTOCOL: 5.3 mCi [...] Jas Peralta MDReport Verified Date/Time: 07/07/2019 15:52:12 [id number] 14:35:00 Test Item Value Reference Range Interpretation Comments AMYLASE (ALBERTO) (test code = 349) 62 U/L 25-125 Customer Experience Manager ID - NTPSpecimen slightly [id number] 14:35:00 Test Item Value Reference Range Interpretation Comments LIPASE (LABERTO) (test code = 749) 10 U/L 8-78 Customer Experience Manager ID - NTPSpecimen slightly ictericPOCT-GLUCOSE [id number] 12:18:00 Test Item Value Reference Range Interpretation Comments POC-GLUCOSE METER 82 mg/dL 70-110 : TESTED A T [facility] 67[facility] (ALBERTO) (test code = [facility], 1538) 08132: Customer Experience Manager/Techni angelita ID = [id number] for ERWIN HARRISON COMPREHENSIVE METABOLIC [id number] 11:57:00 Test Item Value Reference Range Interpretation [...] S NOT APPLICABLE FOR DIALYSIS PATIEN TS. Customer Experience Manager ID - JACOBY MSpecimen slightly ictericHEPATIC FUNCTION [id number] 11:57:00 Test Item Value Reference Range Interpretation [...] code = 777 U/L 6-55 H 347) Customer Experience Manager SHELLY DOZIER MSpecimen slightly ictericCBC W/PLT COUNT & AUTO [id number] 11:39:00 Test Item Value Reference Range Interpretation [...] PERCENT (BEAKER) (test code = 2801) POCT-GLUCOSE [id number] 06:50:00 Test Item Value Reference Range Interpretation Comments POC-GLUCOSE METER 96 mg/dL 70-110 : TESTED A T [facility] 6720 (BEAKER) (test code = [facility] [place], 1538) 69681: Customer Experience Manager/Techni angelita ID = [id number] for MARTELL WHITLOCK TOTAL BETA HCG [id number] 09:19:00 Test Item Value Reference Range Interpretation Comments BETA HCG (test See_Comment [Automated m essage] code = The system [employer] [id number]) generated this result transmit pipo reference range : Non- fe male and male patien ts: <5 mIU/mL. The reference range was not used to interpret this result as normal/abnormal . MCKAYLA (test code Gestational Age ? ? = MCKAYLA) ?Range (mIU/mL) 1-10 ?Weeks ?[id number] Weeks ?73244-02310411-57 Weeks ?6137-61658205-45 Weeks ?5260-009173 Biotin has been reported to cause a negative bias, interpret results relative to patient's use of biotin. [facility] BETA HCG [id number] 05:01:00 Test Item Value Reference Range Interpretation Comments BETA HCG (test See_Comment [Automated m essage] code = The system [employer] [id number]) generated this result transmit pipo reference range : Non- fe male and male patien ts: <5 mIU/mL. The reference range was not used to interpret this result as normal/abnormal . MCKAYLA (test code Gestational Age ? ? = MCKAYLA) ?Range (mIU/mL) 1-10 ?Weeks ?78-17442432-98 Weeks ?86710-82738726-70 Weeks ?9172-15450922-60 Weeks ?1531-559085 Biotin has been reported to cause a negative bias, interpret results relative to patient's use of biotin. [facility] [id number] 05:01:00 Test Item Value Reference Range Interpretation Comments BETA HCG (test See_Comment [Automated m essage] code = The system [employer] [id number]) generated this result transmit pipo reference range : Non- fe male and male patien ts: <5 mIU/mL. The reference range was not used to interpret this result as normal/abnormal . MCKAYLA (test code Gestational Age ? ? = MCKAYLA) ?Range (mIU/mL) 1-10 ?Weeks ?66-53747070-13 Weeks ?36385-06792050-72 Weeks ?6201-24303771-45 Weeks ?1531-472410 Biotin has been reported to cause a negative bias, interpret results relative to patient's use of biotin. [facility] [id number] 04:32:00 Test Item Value Reference Range Interpretation Comments WBC (test code = See_Comment [Automated 7237-2) message] The sy stem which generated this result transmitted reference range : 4.30 - 11.10 10*3/?L. The reference range was not used to interpret this result as normal/abnormal . RBC (test code = See_Comment [Automated 173-8) message] The sy stem which generated this result transmitted reference range : 3.93 - 5.25 10*6/?L. The reference range was not used to interpret this result as normal/abnormal . HGB (test code = 11.0 g/dL 11.6-15 L 718-7) HCT (test code = 36.3 % 35.7-45.2 4544-3) MCV (test code = 79.6 fL 80.6-95.5 L 787-2) MCH (test code = 24.1 pg 25.9-32.8 L 785-6) MCHC (test code = 30.3 g/dL 31.6-35.1 L 786-4) RDW-SD (test code = 49.3 fL 39-49.9 12978-0) RDW-CV (test code = 17.1 % 12-15.5 H 788-0) PLT (test code = See_Comment [Automated 777-3) message] The sy stem which generated this result transmitted reference range : 166 - 358 10*3/ ?L. The reference r christiano was not used to interpret this result as normal/abnormal . MPV (test code = 11.2 fL 9.5-12.9 73602-2) NRBC/100 WBC (test See_Comment [Automat ed code = [id number]) message] The system which generated this result transmitted reference range : 0.0 - 10.0 /100 WBCs. The refer ence range was not u sed to interpret th is result as normal/abnormal . NRBC x10^3 (test code <0.01 See_Comment [Auto mated = 5356601921) message] The s ystem which generated this result transmitted reference range : 10*3/?L. The reference range was not used to interpret this result as normal/abnormal . GRAN MAT (NEUT) % 66.4 % (test code = 770-8) IMM GRAN % (test code 0.40 % = 0070832721) LYMPH % (test code = 18.2 % 736-9) MONO % (test code = 11.2 % 5905-5) EOS % (test code = 3.2 % 713-8) BASO % (test code = 0.6 % 706-2) GRAN MAT x10^3(ANC) 3.50 10*3/uL 1.88-7.09 (test code = 6405311011) IMM GRAN x10^3 (test <0.03 0-0.06 code = 1734759067) LYMPH x10^3 (test code 0.96 10*3/uL 1.32-3.29 L = 731-0) MONO x10^3 (test code 0.59 10*3/uL 0.33-0.92 = 742-7) EOS x10^3 (test code = 0.17 10*3/uL 0.03-0.39 711-2) BASO x10^3 (test code 0.03 10*3/uL 0.01-0.07 = 704-7) Lab Interpretation Abnormal (test code = 07839-3) [facility] WITH [id number] 04:32:00 Test Item Value Reference Range Interpretation Comments WBC (test code = See_Comment [Automated 5890-2) message] The sy stem which generated this result transmitted reference range : 4.30 - 11.10 10*3/?L. The reference range was not used to interpret this result as normal/abnormal . RBC (test code = See_Comment [Automated 589-8) message] The sy stem which generated this result transmitted reference range : 3.93 - 5.25 10*6/?L. The reference range was not used to interpret this result as normal/abnormal . HGB (test code = 11.0 g/dL 11.6-15 L 718-7) HCT (test code = 36.3 % 35.7-45.2 4544-3) MCV (test code = 79.6 fL 80.6-95.5 L 787-2) MCH (test code = 24.1 pg 25.9-32.8 L 785-6) MCHC (test code = 30.3 g/dL 31.6-35.1 L 786-4) RDW-SD (test code = 49.3 fL 39-49.9 01815-9) RDW-CV (test code = 17.1 % 12-15.5 H 788-0) PLT (test code = See_Comment [Automated 937-3) message] The sy stem which generated this result transmitted reference range : 166 - 358 10*3/ ?L. The reference r christiano was not used to interpret this result as normal/abnormal . MPV (test code = 11.2 fL 9.5-12.9 20279-6) NRBC/100 WBC (test See_Comment [Automat ed code = 3702283312) message] The system which generated this result transmitted reference range : 0.0 - 10.0 /100 WBCs. The refer ence range was not u sed to interpret th is result as normal/abnormal . NRBC x10^3 (test code <0.01 See_Comment [Auto mated = 0313806369) message] The s ystem which generated this result transmitted reference range : 10*3/?L. The reference range was not used to interpret this result as normal/abnormal . GRAN MAT (NEUT) % 66.4 % (test code = 770-8) IMM GRAN % (test code 0.40 % = 4397711099) LYMPH % (test code = 18.2 % 736-9) MONO % (test code = 11.2 % 5905-5) EOS % (test code = 3.2 % 713-8) BASO % (test code = 0.6 % 706-2) GRAN MAT x10^3(ANC) 3.50 10*3/uL 1.88-7.09 (test code = 5443980629) IMM GRAN x10^3 (test <0.03 0-0.06 code = 6280899574) LYMPH x10^3 (test code 0.96 10*3/uL 1.32-3.29 L = 731-0) MONO x10^3 (test code 0.59 10*3/uL 0.33-0.92 = 742-7) EOS x10^3 (test code = 0.17 10*3/uL 0.03-0.39 711-2) BASO x10^3 (test code 0.03 10*3/uL 0.01-0.07 = 704-7) Lab Interpretation Abnormal (test code = 04682-4) [facility] [id number] 22:47:00 Test Item Value Reference Range Interpretation Comments POCT PREG (test code = 1605) Positive On board controls acceptable with C Yes Line (test code = 3574) POCT PREG LOT # (test code = 3575) POCT PREG TEST DATE (test code = 3576) [facility] [id number] 22:47:00 Test Item Value Reference Range Interpretation Comments POCT PREG (test code = 1605) Positive On board controls acceptable with C Yes Line (test code = 3574) POCT PREG LOT # (test code = 3575) POCT PREG TEST DATE (test code = 3576) [facility] [id number] 19:41:00 Test Item Value Reference Range Interpretation Comments POCT PREG (test code = 1605) Positive On board controls acceptable with C Yes Line (test code = 3574) POCT PREG LOT # (test code = 3575) POCT PREG TEST DATE (test code = 3576) [facility] GLUCOSE(AGE >30DAYS)2018-12-22 19:41:00 Test Item Value Reference Range Interpretation Comments POCT Glu (age>30days) (test code = 115 mg/dL 70-110 A 3342) Lab Interpretation (test code = Abnormal 73928-9) [facility] URINALYSIS W/O SPECIFIC [id number] 19:36:00 Test Item Value Reference Range Interpretation Comments POCT PH U (test code = 3254) 6 mg/dl 5-8 POCT U LEUK EST (test code = neg Negative - Negative 3263) POCT U NIT (test code = 3262) pos Negative - Negative POCT U PROT (test code = 3259) trace Negative - Negative POCT U GLU (test code = 3256) neg Negative - Negative POCT U KETONE (test code = 3258) neg Negative - Negative POCT U BLD (test code = 3257) neg Negative - Negative Lab Interpretation (test code = Abnormal 19143-0) [facility]
[2021-09-15] MEDS ORDERED: DIPHENHYDRAMINE 50 MG/ML VIAL ONE (17:08)
[2021-09-15] MEDS ORDERED: KETOROLAC 30 MG/ML INJ ONE (17:08)
[2021-09-15] MEDS ORDERED: NA CHLORIDE 0.9% 1,000 ML ONE (17:08)
[2021-09-15] MEDS ORDERED: METOCLOPRAMIDE 10 MG/2mL INJ ONE (17:08)
--- NOTE | 2021-09-15 17:55 | RAD REPORT ---
EXAM DESCRIPTION: CT - Head Brain Wo Cont - 09/15/2021 5:37 pm CLINICAL HISTORY: Headache COMPARISON: Soft Tissue Neck W/Contr dated 11/01/2017 TECHNIQUE: Axial 5 mm thick images of the head were obtained without IV contrast. All CT scans are performed using dose optimization technique as appropriate and may include automated exposure control or mA/KV adjustment according to patient size. FINDINGS: In the right frontal lobe anterior superior margin the sylvian fissure there is a 11 merlene meter area of increased density (48 HU). No similar finding elsewhere on the examination. No mass eff ect, edema or shift of midline structures. No cerebral edema findings. No acute infarction changes se en. No abnormal extra-axial fluid collections. Ventricles are normal. Physiologic calcifications are present. Mastoid air cells and visualized portions of the paranasal sinuses are clear. No acute bony findings. The right frontal lobe finding could represent a small focus of subarachnoid hemorrhage. Leakage from an aneurysm or other vascular malformation cannot be excluded. A small hypertensive hemorrhage is no t excluded though no hypertension history was detailed. Hyperdense mass is possible. IMPRESSION: Focal right frontal lobe 11 mm hyperdensity near the Sylvian fissure is present. Differe ntial considerations include hemorrhage from aneurysm or vascular malformation, hemorrhage from hyper tension or hyperdense mass lesion. No mass-effect or cerebral edema. No other acute intracranial findings.
[2021-09-15 18:46] LABS: Absolute Lymphocytes (CBC) 2.1 K/uL (0.7-4.9); Lymphocytes % 32.8 % (15.3-44.8); MPV 9.1 fL (7.6-11.3); RBC Red Blood Cell Count 4.57 M/uL (3.86-4.86)
[2021-09-15 18:49] LABS: Protime INR 1.07
[2021-09-15 18:56] LABS: Albumin 3.2 g/dL (3.4-5.0); Bilirubin Total 0.2 mg/dL (0.2-1.0); Potassium 4.1 mmol/L (3.5-5.1); Protein, Total 7.1 g/dL (6.4-8.2)
[2021-09-15] MEDS ORDERED: Nicardipine/NS 25 MG/250 ML KIT IV ONE (19:02)
--- NOTE | 2021-09-15 19:11 | EDPHYS ---
Physician Documentation [facility] Name: Melanie Paz Age: 31 yrs Sex: Female : 1990 Arrival Date: 09/15/2021 Time: 15:45 Bed Treatment Private MD: ED Physician Jerry Mcpherson HPI: 09/15 16:20 This 31 yrs old Black Female presents to ER via Ambulatory with complaints of Headache. pm1 16:20 The patient complains of pain to the left side of head. The patient describes the pm1 headache as aching, constant, throbbing. Onset: The symptoms/episode began/occurred 3 day(s) ago. Associated signs and symptoms: Pertinent positives: nausea, Pertinent negatives: dizziness, fever, neck stiffness, Photophobia vision changes, vomiting, weakness. Severity of symptoms: in the emergency department the pain is unchanged, a " 5" out of "10". Headache History: Denies prior headaches. The symptoms are alleviated by nothing. the symptoms are aggravated by nothing. The patient has not experienced similar symptoms in the past. The patient has not recently seen a physician, and does not have an established primary care provider, Patient is not taking any medications. Patient reports hypertension with in the past. 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 - Social history:: Smoking status: Patient denies any tobacco usage or history of. ROS: 16:20 Constitutional: Negative for fever, chills, and weight loss, Cardiovascular: Negative pm1 for chest pain, palpitations, and edema, Respiratory: Negative for shortness of breath, cough, wheezing, and pleuritic chest pain. 16:20 Back: Negative for injury and pain, MS/Extremity: Negative for injury and deformity, Skin: Negative for injury, rash, and discoloration. 16:20 Abdomen/GI: Positive for nausea, Negative for abdominal pain, vomiting, diarrhea. 16:20 Neuro: Positive for headache, of the left side of head. 16:20 All other systems are negative. Exam: 16:20 Constitutional: This is a well developed, well nourished patient who is awake, alert, pm1 and in no acute distress. 16:20 Skin: Warm, dry with normal turgor. Normal color with no rashes, no lesions, and no evidence of cellulitis. MS/ Extremity: Pulses equal, no cyanosis. Neurovascular intact. Full, normal range of motion. 16:20 Head/face: Noted is no obvious of injury or deformity except tenderness, that is moderate, of the palpation to scalp from forehead to occiput on the left side of her head. 16:20 Eyes: Exam is negative for acute changes, Extraocular movements: no acute changes, Conjunctiva: no acute changes, no injection, Sclera: no acute changes, icterus, is not appreciated. 16:20 ENT: Mouth: no acute changes, Lips: normal, moist, Oral mucosa: normal, pink and intact, moist. 16:20 Cardiovascular: Exam negative for acute changes, Rate: normal, Rhythm: regular, Pulses: no pulse deficits are appreciated. 16:20 Respiratory: Exam negative for acute changes, respiratory distress, shortness of breath. 16:20 Abdomen/GI: Exam negative for acute changes, Inspection: abdomen appears normal, Palpation: abdomen is soft and non-tender, in all quadrants. 16:20 Neuro: Exam negative for acute changes, Orientation: is normal, Mentation: is normal, Cranial nerves: CN II- XII are normal as tested, Cerebellar function: Romberg testing is negative, normal finger to nose testing, Motor: is normal, moves all fours, strength is 5/5 in all extremities. Vital Signs: 16:10 BP 149 / 113; Pulse 80; Resp 18 S; Temp 98.8(O); Pulse Ox 100% on R/A; Weight 105.69 kg aa5 (R); Height 5 ft. 4 in. (162.56 cm) (R); Pain 5/10; 18:20 BP 144 / 93; Pulse 83; Resp 16; Pulse Ox 99% on R/A; jb4 19:08 BP 138 / 82; Pulse 77; Resp 16; Pulse Ox 100% on R/A; jb4 19:26 BP 126 / 80; Pulse 93; Resp 18; Pulse Ox 100% on R/A; Pain 0/10; jb4 20:14 BP 121 / 66; Pulse 80; Resp 16; Pulse Ox 100% on R/A; Pain 0/10; jb4 21:05 BP 119 / 82; Pulse 82; Resp 16; Pulse Ox 100% on R/A; tw5 16:10 Body Mass Index 40.00 (105.69 kg, 162.56 cm) aa5 MDM: 16:30 Patient medically screened. pm1 18:06 Counseling: I had a detailed discussion with the patient and/or guardian regarding: the pm1 historical points, exam findings, and any diagnostic results supporting the discharge/admit diagnosis, radiology results, the need to transfer to another facility, [facility] does not immediately have the required specialist. 18:42 Data reviewed: vital signs. Data interpreted: Pulse oximetry: on room air is 99 %. pm1 Interpretation: normal. 18:45 Physician consultation: Neurosurgery Ever regarding consult, patient's condition, and pm1 will see patient. 18:59 Physician consultation: Director Of Group Sales Irasema regarding regarding transfer, to [facility]. patient's condition, and will see patient. 20:27 ED course: Headache resolved, 0/10 pain with blood pressure at goal with using Cardene pm1 drip. 09/15 18:06 Order name: CBC with Diff; Complete Time: 18:51 pm1 09/15 18:06 Order name: CMP; Complete Time: 19:39 pm1 09/15 17:06 Order name: CT Head Brain wo Cont; Complete Time: 18:03 pm1 09/15 18:06 Order name: PT-INR; Complete Time: 18:51 pm1 09/15 18:06 Order name: Ptt, Activated; Complete Time: 18:51 pm1 09/15 18:41 Order name: COVID-19 SARS RT PCR (Document "Date of Onset" if Symptomatic); Complete pm1 Time: 20:16 09/15 16:20 Order name: IV Saline Lock; Complete Time: 16:49 pm1 Administered Medications: 17:18 Drug: NS 0.9% 1000 ml Route: IV; Rate: 1000 ml; Site: right antecubital; jb4 18:51 Follow up: Response: No adverse reaction; IV Status: Completed infusion jb4 17:19 Drug: Benadryl (diphenhydrAMINE) 25 mg Route: IVP; Site: right antecubital; jb4 17:45 Follow up: Response: No adverse reaction; Marked relief of symptoms jb4 17:19 Drug: Reglan (metoCLOPramide) 10 mg Route: IVP; Site: right antecubital; jb4 17:45 Follow up: Response: No adverse reaction; Marked relief of symptoms jb4 17:19 Drug: Ketorolac 30 mg Route: IVP; Site: right antecubital; jb4 17:45 Follow up: Response: No adverse reaction jb4 19:07 Drug: niCARdipine 5 mg/hr {Note: Started at 2.5mg/hr per providers instructions..} jb4 Route: IV; Rate: calculated rate; Site: right antecubital; 21:45 Follow up: Response: No adverse reaction; IV Status: Infusion continued upon transfer jb4 Disposition: 09/16 08:42 Co-signature as Attending Physician, Jerry Mcpherson MD. rn Disposition Summary: 09/15/21 19:11 Transfer Ordered Transfer Location: Other Acute Care Facility pm1 Reason: Higher level of care pm1 Condition: Stable pm1 Problem: new pm1 Symptoms: have improved pm1 Accepting Physician: (09/15/21 21:46) jb4 Diagnosis - Nontraumatic subarachnoid hemorrhage, unspecified pm1 Forms: - Medication Reconciliation Form pm1 - SBAR form pm1 Signatures: Dispatcher [employer] Jerry Villafuerte MD MD rn Calderon, Audri RN RN aa5 Cheng Liu, PRIVATE EQUITY ASSOCIATE PRIVATE EQUITY ASSOCIATE pm1 Giovanni Etienne RN RN jb4 Corrections: (The following items were deleted from the chart) 09/15 21:46 19:11 pm1 jb4
--- NOTE | 2021-09-15 19:11 | ER ---
Nurse's Notes [facility] Name: Melanie Paz Age: 31 yrs Sex: Female : 1990 Arrival Date: 09/15/2021 Time: 15:45 Bed Treatment Private MD: Diagnosis: Nontraumatic subarachnoid hemorrhage, unspecified Presentation: 09/15 16:10 Chief complaint: Patient states: headache to left side of head that began Tuesday. Pt aa5 reports nausea, decreased appetite, denies vomiting. Coronavirus screen: At this time, the client does not indicate any symptoms associated with coronavirus-19. Ebola Screen: No symptoms or risks identified at this time. Initial Sepsis Screen: Does the patient meet any 2 criteria? No. Patient's initial sepsis screen is negative. Does the patient have a suspected source of infection? No. Patient's initial sepsis screen is negative. Risk Assessment: Do you want to hurt yourself or someone else? Patient reports no desire to harm self or others. Onset of symptoms was August 2021. 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 - Social history:: Smoking status: Patient denies any tobacco usage or history of. Screenin:45 Abuse screen: Denies threats or abuse. Nutritional screening: No deficits noted. jb4 Tuberculosis screening: No symptoms or risk factors identified. Fall Risk None identified. Assessment: 16:45 General: Appears in no apparent distress. uncomfortable, Behavior is calm, cooperative. jb4 Pain: Complains of pain in Left sided headache Pain does not radiate. Pain currently is 10 out of 10 on a pain scale. Neuro: Level of Consciousness is awake, alert, obeys commands, Oriented to person, place, time, situation. Cardiovascular: Patient's skin is warm and dry. Respiratory: Airway is patent Respiratory effort is even, unlabored, Respiratory pattern is regular, symmetrical. GI: No signs and/or symptoms were reported involving the gastrointestinal system. : No signs and/or symptoms were reported regarding the genitourinary system. EENT: No signs and/or symptoms were reported regarding the EENT system. Derm: Skin is intact, Skin is dry, Skin is normal, Skin temperature is warm. Musculoskeletal: Circulation, motion, and sensation intact. Range of motion: intact in all extremities. 18:00 Reassessment: Patient appears in no apparent distress at this time. Patient and/or jb4 family updated on plan of care and expected duration. Pain level reassessed. Patient is alert, oriented x 3, equal unlabored respirations, skin warm/dry/pink. 18:50 Reassessment: Patient appears in no apparent distress at this time. Patient and/or jb4 family updated on plan of care and expected duration. Pain level reassessed. Patient is alert, oriented x 3, equal unlabored respirations, skin warm/dry/pink. 19:26 Reassessment: Patient appears in no apparent distress at this time. Patient and/or jb4 family updated on plan of care and expected duration. Pain level reassessed. Patient is alert, oriented x 3, equal unlabored respirations, skin warm/dry/pink. Pt currently denies headache. Patient states feeling better. 20:14 Reassessment: Patient appears in no apparent distress at this time. Patient and/or jb4 family updated on plan of care and expected duration. Pain level reassessed. Patient is alert, oriented x 3, equal unlabored respirations, skin warm/dry/pink. 21:05 Reassessment: Patient appears in no apparent distress at this time. Patient and/or tw5 family updated on plan of care and expected duration. Pain level reassessed. Patient is alert, oriented x 3, equal unlabored respirations, skin warm/dry/pink. 21:45 Reassessment: Patient appears in no apparent distress at this time. Patient and/or jb4 family updated on plan of care and expected duration. Pain level reassessed. Patient is alert, oriented x 3, equal unlabored respirations, skin warm/dry/pink. Vital Signs: 16:10 BP 149 / 113; Pulse 80; Resp 18 S; Temp 98.8(O); Pulse Ox 100% on R/A; Weight 105.69 kg aa5 (R); Height 5 ft. 4 in. (162.56 cm) (R); Pain 5/10; 18:20 BP 144 / 93; Pulse 83; Resp 16; Pulse Ox 99% on R/A; jb4 19:08 BP 138 / 82; Pulse 77; Resp 16; Pulse Ox 100% on R/A; jb4 19:26 BP 126 / 80; Pulse 93; Resp 18; Pulse Ox 100% on R/A; Pain 0/10; jb4 20:14 BP 121 / 66; Pulse 80; Resp 16; Pulse Ox 100% on R/A; Pain 0/10; jb4 21:05 BP 119 / 82; Pulse 82; Resp 16; Pulse Ox 100% on R/A; tw5 16:10 Body Mass Index 40.00 (105.69 kg, 162.56 cm) aa5 ED Course: 15:45 Patient arrived in ED. rg4 16:10 Arm band placed on. aa5 16:11 Triage completed. aa5 16:18 Cheng Liu NP is PHCP. pm1 16:19 Jerry Mcpherson MD is Attending Physician. pm1 16:49 Inserted saline lock: 22 gauge in right antecubital area, using aseptic technique. 5 Blood collected. 16:50 Patient has correct armband on for positive identification. Bed in low position. Call 5 light in reach. Warm blanket given. 16:58 Giovanni Etienne RN is Primary Nurse. jb4 17:38 CT Head Brain wo Cont In Process Unspecified. EDMS 19:07 initiated transfer to [facility]. bd 19:14 Initial lab(s) drawn, by me, held in ED. Inserted saline lock: 22 gauge in right 5 antecubital area, using aseptic technique. Blood collected. 21:45 No provider procedures requiring assistance completed. Patient transferred, IV remains jb4 in place. Administered Medications: 17:18 Drug: NS 0.9% 1000 ml Route: IV; Rate: 1000 ml; Site: right antecubital; jb4 18:51 Follow up: Response: No adverse reaction; IV Status: Completed infusion jb4 17:19 Drug: Benadryl (diphenhydrAMINE) 25 mg Route: IVP; Site: right antecubital; jb4 17:45 Follow up: Response: No adverse reaction; Marked relief of symptoms jb4 17:19 Drug: Reglan (metoCLOPramide) 10 mg Route: IVP; Site: right antecubital; jb4 17:45 Follow up: Response: No adverse reaction; Marked relief of symptoms jb4 17:19 Drug: Ketorolac 30 mg Route: IVP; Site: right antecubital; jb4 17:45 Follow up: Response: No adverse reaction jb4 19:07 Drug: niCARdipine 5 mg/hr {Note: Started at 2.5mg/hr per providers instructions..} jb4 Route: IV; Rate: calculated rate; Site: right antecubital; 21:45 Follow up: Response: No adverse reaction; IV Status: Infusion continued upon transfer jb4 Medication: 21:45 VIS not applicable for this client. jb4 Outcome: 19:11 ER care complete, transfer ordered by . pm1 21:45 Transferred by ground EMS to [facility], Transfer form completed. jb4 X-rays sent w/ patient. 21:45 Condition: stable 21:45 Discharge instructions given to patient, family, Instructed on the need for transfer, Demonstrated understanding of 21:46 Patient left the ED. jb4 Signatures: Dispatcher [employer] EDMS Oneida Aguilar Audri, RN RN aa5 Cheng Liu, АЛЕКСАНДР GENERAL DENTIST/OWNER pm1 Janneth Britt 4 Giovanni Etienne RN RN jb4 Ree Cardona 5 Romi Muñoz 5 Corrections: (The following items were deleted from the chart) 16:14 16:10 BP 149 / 113; Pulse 80bpm; Resp 18bpm; Spontaneous; Pulse Ox 100% RA; Temp 98.8F aa5 Oral; 105.69 kg Reported; Height 5 ft. 4 in. Reported; BMI: 39.9; aa5 18:21 16:10 Acuity: NEIL 3 aa5 jb4
[2021-09-15 22:20] VITALS: TEMP 98.8
[2021-09-15 22:25] VITALS: O2SAT 100
[2021-09-15 22:29] VITALS: BP 119/82
== END 2021-09-15 21:46 ==
LOC: ER 15:43
DX: I60.9 Nontraumatic subarachnoid hemorrhage, unspecified (principal); E11.9 Type 2 diabetes mellitus without complications; Z20.822 Contact with and (suspected) exposure to COVID-19
CPT/HCPCS: 96365; 96361; 85025; 36415; 85610; 85730; 80053; 70450; 96375; 99285; 96366; U0003; J2765; J1200; J7030

== ENCOUNTER 2022-10-15 07:10 | Emergency (ER) | payer BC, OTHER ==
--- OUTSIDE RECORDS SUMMARY | 2022-10-15 07:24 | XMS REPORT | Continuity of Care Document ---
:1990 Author Organization [facility] t Address [address] [facility] [address] [place] [address] Care Team Providers Name Role Phone KRISTAEDELMIRATOM AMOS Coello Primary Care Physician Unavailable Pauline Cloud MD Attending Clinician FERNY HOLDEN Attending Clinician UnavailPAULINE Alvarado Attending Clinician Unavailable GERARD MARTINEZ Attending Clinician Unavailable Brennan Anand MD Attending Clinician Gerard Martinez MD Attending Clinician PAULINE CLOUD Attending Clinician Unavailable Edgar Mehta Attending Clinician Mark Kulkarni Attending Clinician Jimy Ortega Attending Clinician DEBBIE LÓPEZ Attending Clinician Unavailable Cathy COLINDRES, Farheen Jones Attending Clinician Andres Mcgarry MD Attending Clinician Debbie López MD Attending Clinician [phone] Armida COLINDRES, Matias Green Attending Clinician RODRIGUE RODRIGUEZ Attending Clinician Unavailable Josep MCCULLOUGHP, Amos Coello Attending Clinician [phone] AMOS CAR Attending Clinician Unavailable Rg COLINDRES, Darline Attending Clinician Visit, [facility] Nurse Attending Clinician Unavailable Don COLINDRES, Antonieta Attending Clinician Dick COLINDRES, Reynaldo Attending Clinician Clover COLINDRES PHD, Debi Attending Clinician Doctor Unassigned, [place] Attending Clinician Unavailable Stef Redmond DO Attending Clinician Jennifer COLINDRES, Olya Guerrero Attending Clinician Yg COLINDRES, Ava Macias Attending Clinician Bina RN, Esther Guerrero Attending Clinician Unavailable Josiane CAMPGROUND CARETAKER, Karin Vivas Attending Clinician Carlos Aguillon DO Attending Clinician Ultrasound, [facility] Attending Clinician Unavailable Trinh COLINDRES, Otto Russo Attending Clinician 1, [facility] Us Room Attending Clinician Unavailable Ruy COLINDRES, Peng Luz Attending Clinician Lab/Pedi, [facility] Attending Clinician Unavailable Lisbet MSN, Maryann Ventura Attending Clinician Faculty, [facility] Attending Clinician Unavailable Ruy COLINDRES, Herman Guerrero Attending Clinician Donald Sweet MD, Dora Attending Clinician [phone] [facility], [facility] Attending Clinician Unavailable Rodrigue Florentino Attending Clinician BRANDEN LUI Attending Clinician Unavailable Ilan GUZMÁNPJaqueline Attending Clinician Trimester, [facility] Attending Clinician Unavailable Albert Lloyd Attending Clinician Jose COLINDRES, Charli Orlando Attending Clinician 3, [facility] Usg Room Attending Clinician Unavailable DARLINE DIEZ Admitting Clinician Unavailable OLYA RODRIGUEZ Admitting Clinician Unavailable AVA BLUM Admitting Clinician Unavailable PAULINE CLOUD Admitting Clinician Unavailable DEBBIE LÓPEZ Admitting Clinician Unavailable MATIAS HUFFMAN Admitting Clinician Unavailable Rg COLINDRES, Darline Admitting Clinician Antonieta Ochoa MD Admitting Clinician Olya Rodriguez MD Admitting Clinician Ava Blum MD Admitting Clinician JESÚS VU Admitting Clinician Unavailable Payers Payer Name Policy Type Policy Number Effective Date Expiration Date [facility] [id number] 2018 CHOICE MEDICAID 00:00:00 BCBS PPO POS EPO [id number] 2022 CHOICE 00:00:00 PPO/EPO - BCBS [id number] 2022 00:00:00 [facility] [id number] 2018 [facility] 00:00:00 Problems Condition Condition Condition Status Onset Resolution Last Treating Co mments Source Name Details Category Date Date Treatment Clinician Date PCOS PCOS Disease Active [facility] (poly[facility]sti (polycysti 2-16 [facility] ovarian c ovarian 00:00: Medi na syndrome) syndrome) 00 Cent er Cerebral Cerebral Disease [facility] Preop Preop Disease Active [facility] testing testing 2-14 [facility] Center Nontraumat Nontraumat Disease Active [facility] ic ic 5-26 [facility] cortical cortical 00:00: Medica l hemorrhage hemorrhage 00 Ce nter of of cerebral cerebral hemisphere hemisphere Cavernous Cavernous Disease Active [facility] malformati malformati 5-24 [facility] on on 00:00: Medical 00 Center Other Other Disease Active Univers general general 6-07 [place] of counseling [place] and advice and advice 00 Me dical for for Branch contracept contracept jc jc management management Well woman Well woman Disease Active U nivers exam exam 5-14 ity of 00:00: [place] [facility] Branch S/P S/P Disease Active Univers primary primary 4-30 ity of low low 00:00: [place] transverse transverse 00 Me dical Bran ch Obesity Obesity Disease Active Univers (BMI (BMI 4-22 ity of 30-39.9) 30-39.9) 00:00: [place] [address] Medical Branch 37 weeks 37 weeks Disease Active Unive rs gestation gestation 4-22 ity of of of 00:00: [place] 00 [facility] Morbid Morbid Disease Active Univers obesity obesity 4-22 ity of with body with body [place] mass index mass index 00 Me dical of of Branch 40.0-49.9 40.0-49.9 31 weeks 31 weeks Disease Active Unive rs gestation gestation 3-11 ity of of of 00:00: [place] 00 [facility] Back pain Back pain Disease Active Uni [...] (BMI 3-05 ity of 30-39.9) 30-39.9) 00:00: [address] Branch Elevated Elevated Disease Active Unive rs blood blood 2-11 ity of pressure pressure 00:00: [place] reading reading 00 Medical without without Branch diagnosis diagnosis of of hypertensi hypertensi on on Anemia, Anemia, Disease Active Univers unspecifie unspecifie 1-28 it y of d d 00:00: [place] [address] Medical Branch Anemia of Anemia of Disease Active Uni vers mother in mother in 1-28 ity of , , [place] antepartum antepartum 00 Me dical Branch Carpal Carpal Disease Active 2019-04 Univers tunnel tunnel 2-30 ity of syndrome syndrome 00:00: [place] during during 00 Medical Bran ch Pain of Pain of Disease Active 2020 Univers round round 2-30 ity of ligament ligament 00:00: [place] during during 00 Medical Bran ch Vaginal Vaginal Disease Active 2020- Univers yeast yeast 1-02 ity of infection [place] UTI in UTI in Disease Active 2020 Overview: Univer s 0-05 negTOC ity of 00:00: [place] [facility] Susceptibl Susceptibl Disease Active 2020 Overview : Univers e to e to 0-02 Address ity of varicella varicella 00:00: [place] (non-immun (non-immun 00 Me dical e), e), Branch currently currently Supervisio Supervisio Disease Active 2020- U nivers n of n of 0-01 ity of high-risk high-risk 00:00: [place] s[place] 00 [facility] History of History of Disease Active 2020 U nivers miscarriag miscarriag 0-01 it y of e e 00:00: [place] 00 Medical Branch Flu Flu Disease Active 2020- Univers vaccine vaccine 0-01 ity of need need 00:00: [place] 00 Medical Branch Nausea and Nausea and Disease Active 2020- U nivers vomiting vomiting 0-01 ity of during during 00:00: [place] 00 [facility] Cholelithi Cholelithi Disease Active 2020-[address] ases ases 3-14 [facility] 00:00: Medical 00 [place] RUQ pain RUQ pain Disease Active 2020- [facility] 3-14 [facility] 00:[facility]: Medical 00 Center Irregular Irregular Disease Active 2020- Uni vers menstrual menstrual 2-17 ity of cycle cycle 00:00: [place] 00 Medical Branch Other Other Disease Active 2020-0 Univers general general 2-17 ity of counseling counseling [place] and advice and advice 00 [place] dical for for Branch contracept contracept jc jc management management ASCUS of ASCUS of Disease Active 2019 Overview: Un neris cervix cervix -12/2018 ity of with with 00:00: ASCUS and [...] 8-30 it y of s s 00:00: [place] [facility] PCOS PCOS Disease Active Univers (polycysti (polycysti 8-30 it y of c ovarian c ovarian 00:[place] syndrome) syndrome) 00 [facility] Abnormal Abnormal Disease Active Unive rs urinalysis urinalysis 8-30 it y of 00:00: [place] [address] Medical Branch Cessation Cessation Disease Active Uni vers of tobacco of tobacco 8-30 it y of use in use in 00:00: [place] previous previous 00 Medica l 12 months 12 months Bran ch Elevated Elevated Disease Active Unive rs BP without BP without 8-30 it y of diagnosis diagnosis 00:00[place] of of 00 Medical hypertensi hypertensi Br anch on on Obesity Obesity Disease Active Univers affecting affecting 8-30 ity of , , [place] antepartum antepartum 00 Oh dical Branch BMI BMI Disease Active Univers 38.0-38.9, 38.0-38.9, 8-30 it y of adult adult 00:00: [place] Medical [facility] PCOS PCOS Disease Active Univers (polycysti (polycysti 8-30 it y of c ovarian c ovarian 00:[place] syndrome) syndrome) 00 [facility] Obesity in Obesity in Disease Active U nivers 8-30 ity of 00:00: [place] [address] Medical Branch No known No known Disease Unive rs active active ity of problems problems [facility] Allergies, Adverse Reactions, Alerts Allergy Allergy Status Severity Reaction(s) Onset Inactive Treating Comm ents Source Name Type Date Date Clinician Lissa Goodmani Active [facility]ching [facility]08 [facility] ining adverse 00:00: Medical Contrast reaction 00 Center Media s GADOLINI Allergy Active Itching [facility] UM-CONTA 2-08 [facility] INING 00:00: Medical CONTRAST 00 Center MEDIA NO KNOWN Drug Active Univers ALLERGIE Class ity of S [facility] NO KNOWN Allergy Active [facility] ALLERGIE S Family History Family Member Diagnosis Comments Start Date Stop Date Source Natural father Unremarkable [facility] Natural mother Fibromyalgia [facility] Social History Social Habit Start Date Stop Date Quantity Comments Source ASSERTION 2019-12-08 University of 00:00:00 [facility] History SDOH [facility] Alcohol Frequency Medical Center History SDOH [facility] Alcohol Std Drinks Medica l Center History SDOH [facility] Alcohol Binge Medical [address] [facility] History SDOH [facility] Transport Non-Med Medical Center Exposure to 2022-05-30 2022-06-[address] [facility] SARS-CoV-2 (event) 00:00:00 04:20:00 [facility] Alcohol intake 2022-06-09 2022-06-09 .14 /d [facility] 00:[facility]00 00:00:00 Medical Center History SDOH 2022-06-09 2022-06-[address] [facility] Transport Med 00:00:00 00:00:[address] History SDOH 2022-06-09 2022-06-[address] [facility] Housing Unable to 00:00:00 00:00:00 Medical Center Pay History SDKY 2022-06-09 2022-06-[address] [facility] Housing Places 00:00:00 00:00:00 Medical Ce nter Lived History [facility] 2022-06-09 2022-06-[address] [facility] Housing Homeless 00:00:00 00:00:00 Medical Center Last Year Tobacco Comment 2022-06-02 2022-06-02 vapes [facility] Center Tobacco use and 2019-07-08 2019-07-[address] [facility] exposure 00:00:00 00:00:00 Medical Center Alcohol Comment 2019-07-08 2019-07-08 [address] a [facility] 00:00:00 00:00:00 [facility] History of tobacco 2018-10-22 Smoker Univer sity of use 00:00:00 [facility] Sex Assigned At [address] [facility] 00:00:00 00:00:00 Medical Center Smoking Status Start Date Stop Date Source Unknown if ever smoked [facility] Current some day 2020-09-29 00:00:00 [facility] smoker [facility] Branch Former smoker 2019-07-08 00:00:00 2019-07-08 00:00:[address] [facility] Medications Ordered Filled Start Stop Current Ordering Indication Dosage Frequency Signature Comments Components Source Medication Medication Date Date Medication? Clinician (SIG) Name Name gabapentin 2023- No 300mg [id number] Take [address] [address] (NEURONTIN) -12 07- [id number] capsule [facility] 300 MG 00:00: 23:59 3D (300 mg Medical capsule 00 :00 total) by Center mouth 3 (three) times daily for 90 doses. gabapentin 2022-0 2023- No 300mg [id number] Take [address] (NEURONTIN) 2-12 07- [id number] capsule [facility] 300 MG 00:00: 23:59 3D (300 mg Medical capsule 00 :00 total) by Center mouth 3 (three) times daily for 90 doses. gabapentin 2022-0 2023- No 300mg [id number] Take [address] (NEURONTIN) 2-12 07- [id number] capsule [facility] 300 MG 00:00: 23:59 3D (300 mg Medical capsule 00 :00 total) by Center mouth 3 (three) times daily for 90 doses. chlorthalid 2023-0 Yes 25mg QD Take [address] [facility] one 2-19 by mouth [facility] (HYGROTON) 13:43: daily. Medic al 25 MG 01 Center tablet chlorthalid 2023-0 Yes 25mg QD Take [address] one 2-19 by mouth [facility] (HYGROTON) 13:43: daily. Medic al 25 MG 01 Center tablet chlorthalid 2023-0 Yes 25mg QD Take [address] [facility] one 2-19 by mouth [facility]ukes (HYGROTON) 13:43: daily. Medic al 25 MG 01 Center tablet levETIRAcet 2022- No 500mg Q.5D Take [address] [facility] (KEPPRA) 06-12-04 tablets Luke s 250 MG 00:00: 23:59 (500 mg Medical tablet 00 :00 total) by Center mouth 2 (two) times daily for 14 days. levETIRAcet 2022-0 2022- No 500mg Q.5D Take [address] am (KEPPRA) 06-12 03-04 tablets Luke s 250 MG 00:00: 23:59 (500 mg Medical tablet 00 :00 total) by Center mouth 2 (two) times daily for 14 days. levETIRAcet 2022-0 2022- No 500mg Q.5D Take [address] am (KEPPRA) 06-12-04 tablets Luke s 250 MG 00:00: 23:59 (500 mg Medical tablet 00 :00 total) by Center mouth 2 (two) times daily for 14 days. docusate 2022-2022- No 100mg Take 1 [facility] sodium 06-11 capsule [facility] (COLACE) 00:00: 23:59 (100 mg Medic al 100 MG 00 :00 total) by Center capsule mouth 2 (two) times daily as needed for up to 10 days. docusate 2022-0 2022- No 100mg Take 1 [facility] sodium 06-11 capsule [facility] (COLACE) 00:00: 23:59 (100 mg Medic al 100 MG 00 :00 total) by Center capsule mouth 2 (two) times daily as needed for up to 10 days. docusate 2022-0 2022- No 100mg Take 1 [facility] sodium 06-11 capsule [facility] (COLACE) 00:00: 23:59 (100 mg Medic al 100 MG 00 :00 total) by Center capsule mouth 2 (two) times daily as needed for up to 10 days. levETIRAcet 2022-0 2022- No 500mg Q.5D Take [address] am (KEPPRA) 06-11 tablet [facility] 500 MG 00:00: 00:00 (500 mg Medical tablet 00 :00 total) by Center mouth 2 (two) times daily for 13 days. levETIRAcet 2022-0 2022- No 500mg Q.5D Take [address] am (KEPPRA) 06-1118 tablet [facility] 500 MG 00:00: 00:00 (500 mg Medical tablet 00 :00 total) by Center mouth 2 (two) times daily for 13 days. levETIRAcet 2022-0 2022- No 500mg Q.5D Take [address] am (KEPPRA) 06-1118 tablet [facility] 500 MG 00:00: 00:00 (500 mg Medical tablet 00 :00 total) by Center mouth 2 (two) times daily for 13 days. chlorthalid 2022-0 Yes 25mg QD Take [address] [facility] [facility] one 2-15 by mouth [facility] (HYGROTON) 08:43: daily. Medic al 25 MG 01 Center tablet chlorthalid 2022-0 Yes 25mg QD Take [address] [facility] [facility] one 2-08 by mouth [facility] (HYGROTON) 13:42: daily. Medic al 25 MG 28 Center tablet chlorthalid 2022-0 Yes 25mg QD Take [address] [facility] one 2-08 by mouth [facility] (HYGROTON) 13:42: daily. Medic al 25 MG 28 Center tablet HYDROcodone 0 Yes Take 1-[address] -acetaminop 5-27 tablets [facility] hen (NORCO 00:00: every 6 Medi an 5-325) 00 hours as Center 5-325 mg needed for per tablet pain.. HYDROcodone 0 Yes Take 1-[address] -acetaminop 5-27 tablets [facility] hen (NORCO 00:00: every 6 Medi na 5-325) 00 hours as Center 5-325 mg needed for per tablet pain.. HYDROcodone 0 Yes Take 1-[address] -acetaminop 5-27 tablets [facility] hen (NORCO 00:00: every 6 Medi na 5-325) 00 hours as Center 5-325 mg needed for per tablet pain.. HYDROcodone 2021-0 Yes Take 1-[address] -acetaminop 5-27 tablets [facility] hen (NORCO 00:00: every 6 Medi na 5-325) 00 hours as Center 5-325 mg needed for per tablet pain.. HYDROcodone 2021-0 Yes Take 1-[address] -acetaminop 5-27 tablets [facility] hen (HONAKER 00:00: every 6 Medi na 5-325) 00 hours as Center 5-325 mg needed for per tablet pain.. HYDROcodone Yes Take 1-[address] -acetaminop 5-27 tablets [facility] hen (NORCO 00:00: every 6 Medi na 5-325) 00 hours as Center 5-325 mg needed for per tablet pain.. HYDROcodone Yes Take 1-[address] -acetaminop 5-27 tablets [facility] hen (HONAKER 00:00: every 6 Medi na 5-325) 00 hours as Center 5-325 mg needed for per tablet pain.. HYDROcodone Yes Take 1-[address] -acetaminop 5-27 tablets [facility] hen (COMARCOFL 00:00: every 6 Medi na 5-325) 00 hours as Center 5-325 mg needed for per tablet pain.. HYDROcodone Yes Take 1-[address] -acetaminop 5-27 tablets [facility] hen (COMARCOFL 00:00: every 6 Medi na 5-325) 00 hours as Center 5-325 mg needed for per tablet pain.. HYDROcodone Yes Take 1-[address] -acetaminop 5-27 tablets [facility] hen (COMARCOFL 00:00: every 6 Medi na 5-325) 00 hours as Center 5-325 mg needed for per tablet pain.. HYDROcodone Yes Take 1-[address] -acetaminop 5-27 tablets [facility] hen (COMARCOFL 00:00: every 6 Medi na 5-325) 00 hours as Center 5-325 mg needed for per tablet pain.. HYDROcodone Yes Take 1-[address] -acetaminop 5-27 tablets [facility] hen (COMARCOFL 00:00: every 6 Medi na 5-325) 00 hours as Center 5-325 mg needed for per tablet pain.. HYDROcodone Yes Take 1-[address] -acetaminop 5-27 tablets [facility] hen (COMARCOCO 00:00: every 6 Medi na 5-325) 00 hours as Center 5-325 mg needed for per tablet pain.. NIFEdipine 0 2022- No 30mg QD Take [address] [facility] (PROCARDIA- 5-27 06-26 tablet (30 L ukes XL) 30 MG 00:00: 23:59 mg total) Me dical (OSM) 24 hr 00 :00 by mouth Cent er tablet daily for 30 days. NIFEdipine 2021- No 30mg QD Take [address] [facility] (PROCARDIA- 5-27 06-26 tablet (30 L ukes XL) 30 MG 00:00: 23:59 mg total) Me dical (OSM) 24 hr 00 :00 by mouth Cent er tablet daily for 30 days. NIFEdipine 2021- No 30mg QD Take [address] [facility] [address] (PROCARDIA- 5-27 06-26 tablet (30 L ukes XL) 30 MG 00:00: 23:59 mg total) Me dical (OSM) 24 hr 00 :00 by mouth Cent er tablet daily for 30 days. NIFEdipine 2021- No 30mg QD Take [address] [facility] [address] (PROCARDIA- 5-27 06-26 tablet (30 L ukes XL) 30 MG 00:00: 23:59 mg total) Me dical (OSM) 24 hr 00 :00 by mouth Cent er tablet daily for 30 days. NIFEdipine 2021- No 30mg QD Take [address] [facility] [address] (PROCARDIA- 5-27 06-26 tablet (30 L ukes XL) 30 MG 00:00: 23:59 mg total) Me dical (OSM) 24 hr 00 :00 by mouth Cent er tablet daily for 30 days. NIFEdipine 2021- No 30mg QD Take [address] [facility] [address] (PROCARDIA- 5-27 06-26 tablet (30 L ukes XL) 30 MG 00:00: 23:59 mg total) Me dical (OSM) 24 hr 00 :00 by mouth Cent er tablet daily for 30 days. NIFEdipine 2021- No 30mg QD Take [address] [facility] [address] (PROCARDIA- 5-27 06-26 tablet (30 L ukes XL) 30 MG 00:00: 23:59 mg total) Me dical (OSM) 24 hr 00 :00 by mouth Cent er tablet daily for 30 days. NIFEdipine 2021- No 30mg QD Take [address] [facility] [address] (PROCARDIA- 5-27 06-26 tablet (30 L ukes XL) 30 MG 00:00: 23:59 mg total) Me dical (OSM) 24 hr 00 :00 by mouth Cent er tablet daily for 30 days. NIFEdipine 2021- No 30mg QD Take [address] [facility] [address] (PROCARDIA- 5-27 06-26 tablet (30 L ukes XL) 30 MG 00:00: 23:59 mg total) Me dical (OSM) 24 hr 00 :00 by mouth Cent er tablet daily for 30 days. NIFEdipine 2021-2021- No 30mg QD Take [address] [facility] (PROCARDIA- 5-27 06-26 tablet (30 L ukes XL) 30 MG 00:00: 23:59 mg total) Me dical (OSM) 24 hr 00 :00 by mouth Cent er tablet daily for 30 days. NIFEdipine 2021-2021- No 30mg QD Take [address] [facility] (PROCARDIA- 5-27 06-26 tablet (30 L ukes XL) 30 MG 00:00: 23:59 mg total) Me dical (OSM) 24 hr 00 :00 by mouth Cent er tablet daily for 30 days. NIFEdipine 2021-2021- No 30mg QD Take [address] [facility] [address] (PROCARDIA- 5-27 06-26 tablet (30 L ukes XL) 30 MG 00:00: 23:59 mg total) Me dical (OSM) 24 hr 00 :00 by mouth Cent er tablet daily for 30 days. NIFEdipine 2021-2021- No 30mg QD Take [address] [facility] (PROCARDIA- 5-27 06-26 tablet (30 L ukes XL) 30 MG 00:00: 23:59 mg total) Me dical (OSM) 24 hr 00 :00 by mouth Cent er tablet daily for 30 days. ondansetron 2021-2021- No 4mg Take [address] [facility] (ZOFRAN-ODT 5- 06-03 tablet (4 Kin[facility] ) 4 MG 00:00: 23:59 mg total) Medic al disintegrat 00 :00 by mouth Cent er ing tablet every 8 (eight) hours as needed for Nausea for up to 7 days. ondansetron 2021-2021- No 4mg Take [address] [facility] (ZOFRAN-ODT 5-27 06-03 tablet (4 Kinza kes ) 4 MG 00:00: 23:59 mg total) Medic al disintegrat 00 :00 by mouth Cent er ing tablet every 8 (eight) hours as needed for Nausea for up to 7 days. ondansetron 2022-0 2022- No 4mg Take [address] [facility] (ZOFRAN-ODT 5-27 06-03 tablet (4 Kin[facility] kes ) 4 MG 00:00: 23:59 mg total) Medic al disintegrat 00 :00 by mouth Cent er ing tablet every 8 (eight) hours as needed for Nausea for up to 7 days. ondansetron 2022-0 2022- No 4mg Take [address] [facility] (ZOFRAN-ODT 5-27 06-03 tablet (4 Kinza kes ) 4 MG 00:00: 23:59 mg total) Medic al disintegrat 00 :00 by mouth Cent er ing tablet every 8 (eight) hours as needed for Nausea for up to 7 days. ondansetron 2-0 2- No 4mg Take [address] [facility] [address] (ZOFRAN-ODT 5-27 06-03 tablet (4 Kinza kes ) 4 MG 00:00: 23:59 mg total) Medic al disintegrat 00 :00 by mouth Cent er ing tablet every 8 (eight) hours as needed for Nausea for up to 7 days. ondansetron 2-0 2022- No 4mg Take [address] [facility] [address] (ZOFRAN-ODT 5-27 06-03 tablet (4 Kinza kes ) 4 MG 00:00: 23:59 mg total) Medic al disintegrat 00 :00 by mouth Cent er ing tablet every 8 (eight) hours as needed for Nausea for up to 7 days. ondansetron 2-0 2- No 4mg Take [address] [facility] (ZOFRAN-ODT 5-27 06-03 tablet (4 Kinza kes ) 4 MG 00:00: 23:59 mg total) Medic al disintegrat 00 :00 by mouth Cent er ing tablet every 8 (eight) hours as needed for Nausea for up to 7 days. ondansetron 2022-0 2022- No 4mg Take [address] [facility] [address] (ZOFRAN-ODT 5-27 06-03 tablet (4 Kinza kes ) 4 MG 00:00: 23:59 mg total) Medic al disintegrat 00 :00 by mouth Cent er ing tablet every 8 (eight) hours as needed for Nausea for up to 7 days. ondansetron 2022-0 2022- No 4mg Take [address] [facility] [address] (ZOFRAN-ODT 5-27 06-03 tablet (4 Kinza kes ) 4 MG 00:00: 23:59 mg total) Medic al disintegrat 00 :00 by mouth Cent er ing tablet every 8 (eight) hours as needed for Nausea for up to 7 days. ondansetron 2021-0 2- No 4mg Take [address] [facility] (ZOFRAN-ODT 5-27 06-03 tablet (4 Kinza kes ) 4 MG 00:00: 23:59 mg total) Medic al disintegrat 00 :00 by mouth Cent er ing tablet every 8 (eight) hours as needed for Nausea for up to 7 days. ondansetron 2021-0 2021- No 4mg Take [address] [facility] (ZOFRAN-ODT 5-27 06-03 tablet (4 Kinza kes ) 4 MG 00:00: 23:59 mg total) Medic al disintegrat 00 :00 by mouth Cent er ing tablet every 8 (eight) hours as needed for Nausea for up to 7 days. ondansetron 2021-0 2021- No 4mg Take [address] [facility] (ZOFRAN-ODT 5-27 06-03 tablet (4 Kinza kes ) 4 MG 00:00: 23:59 mg total) Medic al disintegrat 00 :00 by mouth Cent er ing tablet every 8 (eight) hours as needed for Nausea for up to 7 days. ondansetron 2021-0 2021- No 4mg Take [address] [facility] (ZOFRAN-ODT 5-27 06-03 tablet (4 Kinza kes ) 4 MG 00:00: 23:59 mg total) Medic al disintegrat 00 :00 by mouth Cent er ing tablet every 8 (eight) hours as needed for Nausea for up to 7 days. multivitami 2021-0 2021- No 1{capsu QD Take [address] [facility] n capsule 09-15 05-24 le} capsule by [facility] 23:40: 00:00 mouth Medical 16 :00 daily. [place] multivitami 2021-0 2021- No 1{capsu QD Take [address] [facility] n capsule 24 05-24 le} capsule by [facility] 23:40: 00:00 mouth Medical 16 :00 daily. [place] multivitami 2021-0 2021- No 1{capsu QD Take [address] [facility] n capsule 5-24 05-24 le} capsule by [place] 23:40: 00:00 mouth Medical 16 :00 daily. [facility] 2021- No 1{capsu QD Take [address] [facility] n capsule 5-24 05-24 le} capsule by [facility] 23:40: 00:00 mouth Medical 16 :00 daily. [facility] 2021- No 1{capsu QD Take [address] [facility] n capsule 5-24 05-24 le} capsule by [facility] 23:40: 00:00 mouth Medical 16 :00 daily. [facility] 2021- No 1{capsu QD Take [address] [facility] n capsule 5-24 05-24 le} capsule by [facility] 23:40: 00:00 mouth Medical 16 :00 daily. [facility] 2021- No 1{capsu QD Take [address] [facility] n capsule 5-24 05-24 le} capsule by [facility] 23:40: 00:00 mouth Medical 16 :00 daily. [facility] 2021- No 1{capsu QD Take [address] [facility] n capsule 5-24 05-24 le} capsule by [place] 23:40: 00:00 mouth Medical 16 :00 daily. [facility] 2021- No 1{capsu QD Take [address] [facility] n capsule 5-24 05-24 le} capsule by [facility] 23:40: 00:00 mouth Medical 16 :00 daily. [facility] 2021- No 1{capsu QD Take [address] [facility] capsule 5-24 05-24 le} capsule by Rhoda es 23:40: 00:00 mouth Medical 16 :00 daily. [facility] 2021- No 1{capsu QD Take [address] [facility] capsule 5-24 05-24 le} capsule by [facility] es 23:40: 00:00 mouth Medical 16 :00 daily. [facility] 2021- No 1{capsu QD Take [address] [facility] capsule 5-24 05-24 le} capsule by [place] es 23:40: 00:00 mouth Medical 16 :00 daily. [facility] 2021- No 1{capsu QD Take [address] [facility] capsule 5-24 05-24 le} capsule by [facility] es 23:40: 00:00 mouth Medical 16 :00 daily. Center HYDROcodone 2020-2020- No 1{tbl} 1 tablet, Univers -acetaminop 5-04 28- Oral, ity of hen (NORCO 00:30: 23:39 ONCE, 1 [place] 5) 5-325 mg 00 :00 dose, Fri Med ical [facility] 1930, Routine HYDROcodone 2020- No 1{tbl} 1 tablet, Univers -acetaminop -30 - Oral, ity of hen (NORCO 23:57: 00:11 ONCE, 1 [place] 5) 5-325 mg 00 :00 dose, Fri Med ical tablet 1 08/22/20 at [facility] tablet 1900, Routine magnesium Yes [id number] 30mL Take 30 mL [facility] hydroxide 4-25 by mouth ity of 400 mg/5 mL 00:00: once daily [place] suspension 00 as needed Medi [facility] for Branch Constipati on. simethicone Yes [id number] 160mg Take 2 [facility] 80 mg 4-25 tablets by ity of chewable 00:00: mouth [place] tablet 00 after Medical meals and Branch at bedtime as needed for Gas. Yes [id number] 1{tbl} Take 1 [facility] vitamin 4-25 tablet by ity of w/FA tablet 00:00: mouth [place] 00 daily. Medical Branch docusate Yes [id number] 240mg Take 1 U nivers calcium 240 4-25 capsule by it y of mg capsule 00:00: mouth once [place] 00 daily as Medical needed for Branch Constipati on. ferrous Yes [id number] 325mg Take 1 Un neris sulfate 325 4-25 tablet by ity of mg (65 mg 00:00: mouth 2 [place] iron) 00 (two) Medical tablet times Branch daily. ibuprofen Yes [id number] 600mg Take 1 [facility] 600 mg 4-25 tablet by ity of tablet 00:00: mouth [place] 00 every 6 Medical (six) Branch hours as needed (Pain). Take with food or milk. magnesium Yes [id number] 30mL Take 30 mL [facility] hydroxide 4-25 by mouth ity of 400 mg/5 mL 00:00: once daily [place] suspension 00 as needed Medi na for Branch Constipati on. simethicone Yes [id number] 160mg Take 2 [facility] 80 mg 4-25 tablets by ity of chewable 00:00: mouth [place] tablet 00 after Medical meals and Branch at bedtime as needed for Gas. Yes [id number] 1{tbl} Take 1 [facility] vitamin 4-25 tablet by ity of w/FA tablet 00:00: mouth [place] 00 daily. Medical Branch docusate Yes [id number] 240mg Take 1 U nivers calcium 240 4-25 capsule by it y of mg capsule 00:00: mouth once [place] 00 daily as Medical needed for Branch Constipati on. ferrous Yes [id number] 325mg Take 1 Un neris sulfate 325 4-25 tablet by ity of mg (65 mg 00:00: mouth 2 [place] iron) 00 (two) Medical tablet times Branch daily. ibuprofen Yes [id number] 600mg Take 1 [facility] 600 mg 4-25 tablet by ity of tablet 00:00: mouth [place] 00 every 6 Medical (six) Branch hours as needed (Pain). Take with food or milk. magnesium Yes [id number] 30mL Take 30 mL [facility] hydroxide 4-25 by mouth ity of 400 mg/5 mL 00:00: once daily [place] suspension 00 as needed Medi na for Branch Constipati on. simethicone Yes [id number] 160mg Take 2 [facility] 80 mg 4-25 tablets by ity of chewable 00:00: mouth [place] tablet 00 after Medical meals and Branch at bedtime as needed for Gas. Yes [id number] 1{tbl} Take 1 [facility] vitamin 4-25 tablet by ity of w/FA tablet 00:00: mouth [place] 00 daily. Medical Branch docusate Yes [id number] 240mg Take 1 U nivers calcium 240 4-25 capsule by it y of mg capsule 00:00: mouth once [place] 00 daily as Medical needed for Branch Constipati on. ferrous Yes [id number] 325mg Take 1 Un neris sulfate 325 4-25 tablet by ity of mg (65 mg 00:00: mouth 2 [place] iron) 00 (two) Medical tablet times Branch daily. ibuprofen Yes [id number] 600mg Take 1 [facility] 600 mg 4-25 tablet by ity of tablet 00:00: mouth [place] 00 every 6 Medical (six) Branch hours as needed (Pain). Take with food or milk. magnesium Yes [id number] 30mL Take 30 mL [facility] hydroxide 4-25 by mouth ity of 400 mg/5 mL 00:00: once daily [place] suspension 00 as needed Medi na for Branch Constipati on. simethicone Yes [id number] 160mg Take 2 [facility] 80 mg 4-25 tablets by ity of chewable 00:00: mouth [place] tablet 00 after Medical meals and Branch at bedtime as needed for Gas. Yes [id number] 1{tbl} Take 1 [facility] vitamin 4-25 tablet by ity of w/FA tablet 00:00: mouth [place] 00 daily. Medical Branch docusate Yes [id number] 240mg Take 1 U nivers calcium 240 4-25 capsule by it y of mg capsule 00:00: mouth once [place] 00 daily as Medical needed for Branch Constipati on. ferrous Yes [id number] 325mg Take 1 Un neris sulfate 325 4-25 tablet by ity of mg (65 mg 00:00: mouth 2 [place] iron) 00 (two) Medical tablet times Branch daily. ibuprofen Yes [id number] 600mg Take 1 [facility] 600 mg 4-25 tablet by ity of tablet 00:00: mouth [place] 00 every 6 Medical (six) Branch hours as needed (Pain). Take with food or milk. magnesium Yes [id number] 30mL Take 30 mL [facility] hydroxide 4-25 by mouth ity of 400 mg/5 mL 00:00: once daily [place] suspension 00 as needed Medi na for Branch Constipati on. simethicone Yes [id number] 160mg Take 2 [facility] 80 mg 4-25 tablets by ity of chewable 00:00: mouth [place] tablet 00 after Medical meals and Branch at bedtime as needed for Gas. Yes [id number] 1{tbl} Take 1 [facility] vitamin 4-25 tablet by ity of w/FA tablet 00:00: mouth [place] 00 daily. Medical Branch docusate Yes [id number] 240mg Take 1 U nivers calcium 240 4-25 capsule by it y of mg capsule 00:00: mouth once [place] 00 daily as Medical needed for Branch Constipati on. ferrous Yes [id number] 325mg Take 1 Un neris sulfate 325 4-25 tablet by ity of mg (65 mg 00:00: mouth 2 [place] iron) 00 (two) Medical tablet times Branch daily. ibuprofen Yes [id number] 600mg Take 1 [facility] 600 mg 4-25 tablet by ity of tablet 00:00: mouth [place] 00 every 6 Medical (six) Branch hours as needed (Pain). Take with food or milk. magnesium Yes [id number] 30mL Take 30 mL [facility] hydroxide 4-25 by mouth ity of 400 mg/5 mL 00:00: once daily [place] suspension 00 as needed Medi na for Branch Constipati on. simethicone Yes [id number] 160mg Take 2 [facility] 80 mg 4-25 tablets by ity of chewable 00:00: mouth [place] tablet 00 after Medical meals and Branch at bedtime as needed for Gas. Yes [id number] 1{tbl} Take 1 [facility] vitamin 4-25 tablet by ity of w/FA tablet 00:00: mouth [place] 00 daily. Medical Branch docusate Yes [id number] 240mg Take 1 U nivers calcium 240 4-25 capsule by it y of mg capsule 00:00: mouth once [place] 00 daily as Medical needed for Branch Constipati on. ferrous Yes [id number] 325mg Take 1 Un neris sulfate 325 4-25 tablet by ity of mg (65 mg 00:00: mouth 2 [place] iron) 00 (two) Medical tablet times Branch daily. ibuprofen Yes [id number] 600mg Take 1 [facility] 600 mg 4-25 tablet by ity of tablet 00:00: mouth [place] 00 every 6 Medical (six) Branch hours as needed (Pain). Take with food or milk. magnesium Yes [id number] 30mL Take 30 mL [facility] hydroxide 4-25 by mouth ity of 400 mg/5 mL 00:00: once daily [place] suspension 00 as needed Medi na for Branch Constipati on. simethicone Yes [id number] 160mg Take 2 [facility] 80 mg 4-25 tablets by ity of chewable 00:00: mouth [place] tablet 00 after Medical meals and Branch at bedtime as needed for Gas. Yes [id number] 1{tbl} Take 1 [facility] vitamin 4-25 tablet by ity of w/FA tablet 00:00: mouth [place] 00 daily. Medical Branch docusate Yes [id number] 240mg Take 1 U nivers calcium 240 4-25 capsule by it y of mg capsule 00:00: mouth once [place] 00 daily as Medical needed for Branch Constipati on. ferrous Yes [id number] 325mg Take 1 Un neris sulfate 325 4-25 tablet by ity of mg (65 mg 00:00: mouth 2 [place] iron) 00 (two) Medical tablet times Branch daily. ibuprofen Yes [id number] 600mg Take 1 [facility] 600 mg 4-25 tablet by ity of tablet 00:00: mouth [place] 00 every 6 Medical (six) Branch hours as needed (Pain). Take with food or milk. Yes [id number] 1{tbl} Take 1 [facility] vitamin 4-25 tablet by ity of w/FA tablet 00:00: mouth [place] 00 daily. Medical Branch Yes [id number] 1{tbl} Take 1 [facility] vitamin 4-25 tablet by ity of w/FA tablet 00:00: mouth [place] 00 daily. Medical Branch magnesium 2020- No [id number] 30mL Take 30 mL Univers hydroxide 4-25 06-07 by mouth ity o f 400 mg/5 mL 00:00: 00:00 once daily [place] suspension 00 :00 as needed Medi na for Branch Constipati on. simethicone 2020- No [id number] 160mg Take 2 Univers 80 mg 4-25 06-07 tablets by ity of chewable 00:00: 00:00 mouth [place] tablet 00 :00 after Medical meals and Branch at bedtime as needed for Gas. docusate 2020- No [id number] 240mg Take 1 [facility] calcium 240 4-25 06-07 capsule by i ty of mg capsule 00:00: 00:00 mouth once [place] 00 :00 daily as Medical needed for Branch Constipati on. ferrous 2020- No [id number] 325mg Take 1 U nivers sulfate 325 4-25 06-07 tablet by it y of mg (65 mg 00:00: 00:00 mouth 2 [place] iron) 00 :00 (two) Medical tablet times Branch daily. ibuprofen 2020- No [id number] 600mg Take 1 [facility] 600 mg 4-25 06-07 tablet by ity of tablet 00:00: 00:00 mouth [place] 00 :00 every 6 Medical (six) Branch hours as needed (Pain). Take with food or milk. magnesium 2020- No [id number] 30mL Take 30 mL Univers hydroxide -17 10-07 by mouth ity o f 400 mg/5 mL 00:00: 00:00 once daily [place] suspension 00 :00 as needed Medi na for Branch Constipati on. simethicone 2020- No [id number] 160mg Take 2 [facility] 80 mg 4-25 -07 tablets by ity of chewable 00:00: 00:00 mouth [place] tablet 00 :00 after Medical meals and Branch at bedtime as needed for Gas. docusate 2020- No [id number] 240mg Take 1 [facility] calcium 240 -17 10- capsule by i ty of mg capsule 00:00: 00:00 mouth once [place] 00 :00 daily as Medical needed for Branch Constipati on. ferrous 2020- No [id number] 325mg Take 1 U nivers sulfate 325 -25 -07 tablet by it y of mg (65 mg 00:00: 00:00 mouth 2 [place] iron) 00 :00 (two) Medical tablet times Branch daily. ibuprofen 2020- No [id number] 600mg Take 1 [facility] 600 mg 4-25 06-07 tablet by ity of tablet 00:00: 00:00 mouth [place] 00 :00 every 6 Medical (six) Branch hours as needed (Pain). Take with food or milk. HYDROcodone 2020- No 4647 1{tbl} Take 1 [...] Yes 600mg 600 mg, Univ ers (IBU) 4-24 Oral, Q6H, ity of tablet 600 05:00: [...] Fri Medic al tablet 1 08/15/20 at [facility] h tablet 2014, Routine rho(D) Yes 300ug 300 mcg, Univer s immune 08-15 Intramuscu ity of globulin 23:36: lar, ONCE, [place] as (RHOGAM) 44 For 1 Medical syringe 300 dose, Branch mcg Conditiona l, Routine rho(D) 2020- No 300ug 300 mcg, Unive rs immune [...] Oral, ity of (SIMETHICON 23:36: 22:02 PC+HSPRN, [place] E)) 39 :18 Starting Medical chewable Fri Branch tablet 160 08/15/20 at mg 1836, Until 08/17/20 at 1702, Routine, Gas human Yes .5mL 0.5 mL, Univers papillomav 08-15 Intramuscu ity of vac,9-ashlee(P 23:36: lar, [place] F) 38 ONCE-PRIOR Medical (GARDASIL-9 TO Branch [...] Until Discontinu ed, Routine, Sleep, Itching ondansetron 2020-0 Yes 4mg 4 mg, Slow Univers (ZOFRAN 4-23 IV Push, ity of (PF)) 23:36: Q8HPRN, [place] injection 4 38 Starting Medi na mg Tue Branch 08/15/20 at 1836, Until Discontinu ed, Routine, Nausea and Vomiting (N/V) bisacodyL 2020-0 Yes 10mg 10 mg, Univer s (DULCOLAX) 4-23 Rectal, ity of suppository 23:36: QDAILYPRN, [place] [...] syringe DISCHARGE, 0.5 mL 1 dose, Starting 08/15/20 at 1836, Until 08/17/20 [...] Until 08/17/20 at 1702, Routine, Itching diphenhydrA 2020- No 25mg 25 mg, Uni vers MINE 08-15 Oral, ity of (BENADRYL) 23:36: 22:02 Q6HPRN, [place] tablet 25 38 :18 Starting Medica l mg Fri Branch 08/15/20 at 1836, Until 08/17/20 at 1702, Routine, Sleep, Itching ondansetron 2020- No 4mg 4 mg, Slow Univers (ZOFRAN 08-15 IV Push, ity of (PF)) 23:36: 22:02 Q8HPRN, [place] injection 4 38 :18 Starting Medi na mg Fri Branch 08/15/20 at 1836, Until Tue08/17/20 at 1702, Routine, Nausea and Vomiting (N/V) bisacodyL 2020- No 10mg 10 mg, Unive rs (DULCOLAX) 08-15 Rectal, ity o f suppository 23:36: 22:02 QDAILYPRN, [place] 10 mg 38 :18 Starting Medical Fri Branch 08/15/20 at 1836, Until 08/17/20 at 1702, Routine, Constipati on docusate 2020- No 240mg 240 mg, Univ ers calcium [...] :18 Starting Medica l 400 mg/5 [address] [facility] Branch suspension 08/15/20 at 30 mL 1836, Until 08/17/20 at 1702, Routine, Constipati on naloxone 2020-0 Yes .2mg 0.2 mg, Univer s (NARCAN) 08-15 Intramuscu ity o f injection 21:07: lar, [place] 0.2 mg 48 Q3HPRN, Medical Starting Branch 08/15/20 at 1607, Until Discontinu ed, Routine, Itching, PACU diphenhydrA 2020-0 Yes 25mg 25 mg, Univ ers MINE 08-15 Oral, ity of (BENADRYL) 21:07: Q4HPRN, [place] tablet 25 48 Starting Medica l mg Fri Branch 08/15/20 at 1607, Until Discontinu ed, Routine, Itching, PACU naloxone 2020-0 2020- No .4mg 0.4 mg, Unive rs (NARCAN) 08-15 Slow IV ity of injection 21:07: 21:06 Push, PRN [place] 0.4 mg 48 :48 - SEE [facility], Starting 08/15/20 at 1607, Until 08/17/20 at 1606, Routine, Analgesia Recovery, PACU naloxone 2020-0 2020- No .4mg 0.4 mg, Unive rs (NARCAN) 08-15 Slow IV ity of injection 21:07: 21:06 Push, PRN [place] 0.4 mg 48 :48 - SEE [facility], Starting 08/15/20 at 1607, Until Tue08/17/20 at 1606, Routine, Analgesia Recovery, PACU naloxone 2020-0 2020- No .2mg 0.2 mg, Unive rs (NARCAN) 08-15 Intramuscu ity of injection 21:07: 22:02 lar, [place] 0.2 mg 48 :18 Q3HPRN, Medical Starting Branch 08/15/20 at 1607, Until Tue08/17/20 at 1702, Routine, Itching, PACU diphenhydrA 2020- No 25mg 25 mg, Uni vers MINE 08-15 Oral, ity of (BENADRYL) 21:07: 22:02 Q4HPRN, [place] tablet 25 48 :18 Starting Medica l mg Fri Branch 08/15/20 at 1607, Until 08/17/20 at 1702, Routine, Itching, PACU acetaminoph 2020- No 1000mg 1,000 mg, Univers en ADULT 08-15 IV ity of (OFIRMEV) 21:07: 00:08 Infusion, [place] injection 48 :46 Administer Medi na 1,000 mg over 15 Branch Minutes, Q6HPRN, Starting 08/15/20 at 1607, Until 08/15/20 at 1908, Routine, Pain (scale 7-10), PACU
In dication: Perioperat jc Patient ketorolac 2020- No 15mg 15 mg, Unive rs (TORADOL) 08-15 Slow IV ity of injection 21:07: 00:08 Push, [place] 15 mg 48 :46 Q6HPRN, 4 Medical doses, Branch Starting 08/15/20 at 1607, Until 08/15/20 at 1908, Routine, Pain (scale 1-3), PACU
[facility] member approving Restricted medication : REAL NICHOLS midazolam 2020- No IV Push, Uni vers (VERSED) 08-15 ONCE INTRA ity of injection 20:11: 20:40 PROCEDURE, [place] 00 :50 Starting Medical Fri Branch 08/15/20 at 1511, Until 08/15/20 at 1540, Routine, Intra-op morpHINE PF 2020- No Epidural, Univers (DURAMORPH- 08-15 ONCE INTRA i ty of PF) 19:59: 20:40 PROCEDURE, [place] injection 00 :50 Starting Medica l Fri Branch 08/15/20 at 1459, Until 08/15/20 at 1540, Routine, Intra-op LR 1000 mL 2020- No IV Univer s + oxytocin 4-23 04-23 Infusion, ity of 20 units IV 19:50: 20:40 CONTINUOUS [place] Solution 00 :50 PRN, Medical Starting Branch 08/15/20 at 1450, Until 08/15/20 at 1540, JUMANA, Intra-op PHENYLephri 2020- No Slow IV Un neris ne 1000 08-15 Push, ONCE ity o f mcg/10 mL 19:36: 20:40 INTRA [place] in 0.9% 00 :50 PROCEDURE, Medica l NaCl Starting Branch syringe 08/15/20 at 1436, Until 08/15/20 at 1540, Routine, Intra-op lactated 2020- No IV Univers ringers IV 08-15 Infusion, ity of infusion 19:27: 20:40 CONTINUOUS [place] 00 :50 PRN, Medical Starting Branch 08/15/20 at 1427, Until 08/15/20 at 1540, Routine, Intra-op lidocaine 2020- No [...] IV Fri piggyback 08/15/20 at 1407, Until 08/15/20 at 1438, 250 mL
Reas on for Anti-Infec tive: Surgical Prophylaxi s
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
Duration of therapy: within 24 hours of [...] Piggyback 2 ONCE, 1 g dose, Starting 08/15/20 at 1407, Until 08/15/20 at 1417, 100 mL
Reas on for Anti-Infec tive: Surgical Prophylaxi s
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
Duration of therapy: within 24 hours of surgery FENTanyl 2 2020- No Intra-op Un neris mcg/mL + 08-15 ity of bupivacaine 02:00: 20:40 [place] 0.1% in NS 00 :50 Medical 250 mL Branch epidural bag lidocaine-e 2020- No Intraderma Univers pinephrine 08-15 l, ONCE ity o f (XYLOCAINE 01:58: 20:40 INTRA [place] W/EPINEPHRI 00 :50 PROCEDURE, Me dical NE) 1.5 Starting Branch %-1:200,000 Day injection 08/14/20 at 2058, Until Tue08/15/20 at 1540, Routine, Intra-op proMETHazin 2020- No 25mg 25 mg, IV Univers e 08-15 Piggyback, ity of (PHENERGAN) 00:00: 00:36 ONCE, 1 [place] 25 mg in 00 :00 dose, Day Medica l NaCl 0.9% 08/14/20 at Bran ch (NS) 50 mL 1900, IV Routine piggyback nalbuphine 2020- No 10mg 10 mg, Univ ers (NUBAIN) 08-15 Intravenou ity of injection 00:00: 23:11 s, ONCE, 1 [place] 10 mg 00 :00 dose, Day Medical 08/14/20 at Branch 1900, Routine LR 1000 mL 2020- No 2mU/min 2-40 Uni vers + oxytocin 08-1423 merlene-unit it y of 20 units IV [...] s/min requires faculty approval.& nbsp;&nbsp ;Max 40 merlene-unit s/min.
D5W-LR IV 2020- No 1000mL at 125 Uni vers infusion 08-14- mL/hr, IV ity o f 1,000 mL 21:00: 23:36 Infusion, [place] 00 :44 CONTINUOUS Medical , Starting Branch Day 08/14/20 at 1600, Until Tue08/15/20 at 1836, Routine sodium 2020- No 30mL 30 mL, Univers citrate-cit 08-14 Oral, ity of precious acid 20:50: 01:31 PRE-PROCED [place] (BICITRA) 29 :00 URE ONCE, Medic al 500-334 1 dose, Branch mg/5 mL Starting solution 30 Day mL 08/14/20 at 1550, Until Discontinu ed, Routine, Surgery/Pr ocedure lactated 2020- No 500mL at 999 Unive rs ringers IV 08-14- mL/hr, 500 it y of infusion 20:50: 23:36 mL, IV [place] 500 mL 28 :44 Infusion, Medical PRN - SEE Branch INSTRUCTIO NS, Starting Day 08/14/20 at 1550, Until Tue08/15/20 at 1836, Routine ferrous Yes [id number] 325mg Take 1 Un neris sulfate 325 4-20 tablet by ity of mg (65 mg 00:00: mouth 2 [place] iron) 00 (two) Medical tablet times Branch daily. ferrous Yes [id number] 325mg Take 1 Un neris sulfate 325 4-20 tablet by ity of mg (65 mg 00:00: mouth 2 [place] iron) 00 (two) Medical tablet times Branch daily. ferrous Yes [id number] 325mg Take 1 Un neris sulfate 325 4-20 tablet by ity of mg (65 mg 00:00: mouth 2 [place] iron) 00 (two) Medical tablet times Branch daily. sodium 2020- No 30mL 30 mL, Univers citrate-cit 07-03 Oral, ONCE i ty of precious acid 23:45: 22:33 NOW, 1 [place] (BICITRA) 00 :00 dose, Day Medic al 500-334 07/03/20 at [place] mg/5 mL 1745, solution 30 Routine mL metroNIDAZO 2020- No 500mg 500 mg, U nivers LE (FLAGYL) 3-06 Oral, ONCE i ty of tablet 500 02:00: 01:57 NOW, 1 [place] mg 00 :00 dose, Fri Medical 06/27/20 at [place] 1999, Routine
Reason for Anti-Infec tive: Documented Infection< br>Documen pipo Infection Site: Pelvic
Duration of Therapy: Other (see Comments) metroNIDAZO Yes [id number] 500mg Take 2 Univers LE 250 mg 3-06 tablets by ity of tablet 00:00: mouth [place] (two) Medical times Branch daily. metroNIDAZO Yes [id number] 500mg Take 2 Univers LE 250 mg 3-06 tablets by ity of tablet 00:00: mouth 2 [place] (two) Medical times Branch daily. metroNIDAZO 2020-0 Yes [id number] 500mg Take 2 Univers LE 250 mg 3-06 tablets by ity of tablet 00:00: mouth 2 [place] (two) Medical times Branch daily. metroNIDAZO 2020-0 Yes [id number] 500mg Take 2 Univers LE 250 mg 3-06 tablets by ity of tablet 00:00: mouth 2 (two) Medical times Branch daily. metroNIDAZO Yes [id number] 500mg Take 2 Univers LE 250 mg 3-06 tablets by ity of tablet 00:00: mouth 2 [place] 00 (two) Medical times Branch daily. metroNIDAZO 0 Yes [id number] 500mg Take 2 Univers LE 250 mg 3-06 tablets by ity of tablet 00:00: mouth 2 [place] 00 (two) Medical times Branch daily. metroNIDAZO Yes [id number] 500mg Take 2 Univers LE 250 mg 3-06 tablets by ity of tablet 00:00: mouth 2 [place] 00 (two) Medical times Branch daily. metroNIDAZO Yes [id number] 500mg Take 2 Univers LE 250 mg 3-06 tablets by ity of tablet 00:00: mouth 2 [place] 00 (two) Medical times Branch daily. metroNIDAZO 2020- No [id number] 500mg Take 2 Univers LE 250 mg 3-06 04-25 tablets by ity of tablet 00:00: 00:00 mouth 2 [place] 00 :00 (two) Medical times Branch daily. metroNIDAZO 2020- No [id number] 500mg Take 2 Univers LE 250 mg 3-06 04-25 tablets by ity of tablet 00:00: 00:00 mouth 2 [place] 00 :00 (two) Medical times Branch daily. ascorbic Yes [id number] 500mg Take 1 U nivers acid, 1-28 tablet by ity of vitamin C, 00:00: mouth 3 [place] 500 mg 00 (three) Medical tablet times Branch daily. ferrous Yes [id number] 325mg Take 1 Un neris sulfate 325 1-28 tablet by ity of mg (65 mg 00:00: mouth 2 [place] iron) 00 (two) Medical tablet times Branch daily. ascorbic Yes [id number] 500mg Take 1 U nivers acid, 1-28 tablet by ity of vitamin C, 00:00: mouth 3 [place] 500 mg 00 (three) Medical tablet times Branch daily. ferrous Yes [id number] 325mg Take 1 Un neris sulfate 325 1-28 tablet by ity of mg (65 mg 00:00: mouth 2 [place] iron) 00 (two) Medical tablet times Branch daily. ascorbic Yes [id number] 500mg Take 1 U nivers acid, 1-28 tablet by ity of vitamin C, 00:00: mouth 3 [place] 500 mg 00 (three) Medical tablet times Branch daily. ferrous Yes [id number] 325mg Take 1 Un neris sulfate 325 1-28 tablet by ity of mg (65 mg 00:00: mouth 2 [place] iron) 00 (two) Medical tablet times Branch daily. ascorbic Yes [id number] 500mg Take 1 U nivers acid, 1-28 tablet by ity of vitamin C, 00:00: mouth 3 [place] 500 mg 00 (three) Medical tablet times Branch daily. ferrous Yes [id number] 325mg Take 1 Un neris sulfate 325 1-28 tablet by ity of mg (65 mg 00:00: mouth 2 [place] iron) 00 (two) Medical tablet times Branch daily. ascorbic Yes [id number] 500mg Take 1 U nivers acid, 1-28 tablet by ity of vitamin C, 00:00: mouth 3 [place] 500 mg 00 (three) Medical tablet times Branch daily. ferrous Yes [id number] 325mg Take 1 Un neris sulfate 325 1-28 tablet by ity of mg (65 mg 00:00: mouth 2 [place] iron) 00 (two) Medical tablet times Branch daily. ascorbic Yes [id number] 500mg Take 1 U nivers acid, 1-28 tablet by ity of vitamin C, 00:00: mouth 3 [place] 500 mg 00 (three) Medical tablet times Branch daily. ferrous Yes [id number] 325mg Take 1 Un neris sulfate 325 1-28 tablet by ity of mg (65 mg 00:00: mouth 2 [place] iron) 00 (two) Medical tablet times Branch daily. ascorbic Yes [id number] 500mg Take 1 U nivers acid, 1-28 tablet by ity of vitamin C, 00:00: mouth 3 [place] 500 mg 00 (three) Medical tablet times Branch daily. ferrous Yes [id number] 325mg Take 1 Un neris sulfate 325 1-28 tablet by ity of mg (65 mg 00:00: mouth 2 [place] iron) 00 (two) Medical tablet times Branch daily. ascorbic Yes [id number] 500mg Take 1 U nivers acid, 1-28 tablet by ity of vitamin C, 00:00: mouth 3 [place] 500 mg 00 (three) Medical tablet times Branch daily. ferrous Yes [id number] 325mg Take 1 Un neris sulfate 325 1-28 tablet by ity of mg (65 mg 00:00: mouth 2 [place] iron) 00 (two) Medical tablet times Branch daily. ascorbic Yes [id number] 500mg Take 1 U nivers acid, 1-28 tablet by ity of vitamin C, 00:00: mouth 3 [place] 500 mg 00 (three) Medical tablet times Branch daily. ferrous Yes [id number] 325mg Take 1 Un neris sulfate 325 1-28 tablet by ity of mg (65 mg 00:00: mouth 2 [place] iron) 00 (two) Medical tablet times Branch daily. ascorbic Yes [id number] 500mg Take 1 U nivers acid, 1-28 tablet by ity of vitamin C, 00:00: mouth 3 [place] 500 mg 00 (three) Medical tablet times Branch daily. ferrous Yes [id number] 325mg Take 1 Un neris sulfate 325 1-28 tablet by ity of mg (65 mg 00:00: mouth 2 [place] iron) 00 (two) Medical tablet times Branch daily. ascorbic Yes [id number] 500mg Take 1 U nivers acid, 1-28 tablet by ity of vitamin C, 00:00: mouth 3 [place] 500 mg 00 (three) Medical tablet times Branch daily. ferrous Yes [id number] 325mg Take 1 Un neris sulfate 325 1-28 tablet by ity of mg (65 mg 00:00: mouth 2 [place] iron) 00 (two) Medical tablet times Branch daily. ascorbic Yes [id number] 500mg Take 1 U nivers acid, 1-28 tablet by ity of vitamin C, 00:00: mouth 3 [place] 500 mg 00 (three) Medical tablet times Branch daily. ferrous Yes [id number] 325mg Take 1 Un neris sulfate 325 1-28 tablet by ity of mg (65 mg 00:00: mouth 2 [place] iron) 00 (two) Medical tablet times Branch daily. ascorbic Yes [id number] 500mg Take 1 U nivers acid, 1-28 tablet by ity of vitamin C, 00:00: mouth 3 [place] 500 mg 00 (three) Medical tablet times Branch daily. ferrous Yes [id number] 325mg Take 1 Un neris sulfate 325 1-28 tablet by ity of mg (65 mg 00:00: mouth 2 [place] iron) 00 (two) Medical tablet times Branch daily. ascorbic Yes [id number] 500mg Take 1 [facility] n[facility] acid, 1-28 tablet by [facility] vitamin C, 00:00[place] 500 mg 00 (three) Medical tablet times Branch daily. ferrous Yes [id number] 325mg Take 1 [facility] neris sulfate 325 1-28 tablet by ity of mg (65 mg 00:00: mouth 2 [place] iron) 00 (two) Medical tablet times Branch daily. ascorbic Yes [id number] 500mg Take 1 [facility] acid, 1-28 tablet by [facility] vitamin C, 00:00: [place] mg 00 (three) Medical tablet times Branch daily. ferrous Yes [id number] 325mg Take 1 [facility] ner[place] sulfate 325 1-28 tablet by ity of mg (65 mg 00:00: mouth 2 [place] iron) 00 (two) Medical tablet times Branch daily. ascorbic Yes [id number] 500mg Take 1 [facility] acid, 1-28 tablet by [facility] vitamin C, 00:00: mouth [place] mg 00 (three) Medical tablet times Branch daily. ascorbic Yes [id number] 500mg Take 1 [facility] acid, 1-28 tablet by [facility] vitamin C, 00:00: mouth [place] mg 00 (three) Medical tablet times Branch daily. ascorbic Yes [id number] 500mg Take 1 [facility] acid, 1-28 tablet by [facility] vitamin C, 00:00: mouth [place] mg 00 (three) Medical tablet times Branch daily. ascorbic 2020- No [id number] 500mg Take 1 [facility] acid, 1-28 04-25 tablet by ity of vitamin C, 00:00: 00:00 mouth 3 [place] 500 mg 00 :00 (three) Medical tablet times Branch daily. ascorbic 2020- No [id number] 500mg Take 1 [facility] acid, 1-28 04-25 tablet by ity of vitamin C, 00:00: 00:00 mouth 3 [place] 500 mg 00 :00 (three) Medical tablet times Branch daily. ferrous 2020- No [id number] 325mg Take 1 [facility] nivers sulfate 325 05-22 tablet by it y of mg (65 mg 00:00: 00:[place] iron[place] 00 :00 (two) Medical tablet times Branch daily. terconazole 2019-04- No [id number] 80mg Insert 1 [facility] 80 mg 04-26 Suppositor ity of vaginal 00:00: 05:59 y into [place] suppository 00 :00 [facility]. terconazole 2019-04- No [id number] 80mg Insert 1 [facility] 80 mg 04-26 Suppositor ity of vaginal 00:00: 05:59 y into [place] suppository 00 :00 vagina at [facility]. terconazole 2019-04 No [id number] 80mg Insert 1 [facility] 80 mg 04-26 Suppositor ity of vaginal 00:00: 05:59 y into [place] suppository 00 :00 vagina at [facility] days. Nitrofurant 2019-04 Yes [id number] 100mg Take 1 [facility] oin&Nit. 0-05 capsule by [facility] o [place] 00:[place]: [place] (MACROBID) 00 (two) Medical 100 mg times Branch capsule daily. Nitrofurant 2019-04 Yes [id number] 100mg Take 1 [facility] oin&Nit. 0-05 capsule by [facility] o [facility] [place] 00:[place]: [place] (MACROBID) 00 (two) Medical 100 mg times Branch capsule daily. Nitrofurant 2019-04 Yes [id number] 100mg Take 1 [facility] oin&Nit. 0-05 capsule by [facility] o [facility] [place] 00:[place]: [place] ([place]CR[place]) 00 (two) Medical 100 mg times Branch capsule daily. Nitrofurant 2019-04 Yes [id number] 100mg Take 1 [facility] oin&Nit. 0-05 capsule by [facility] o [facility] [place] 00:[place]: mouth [place] ([place]CR[place]) 00 (two) Medical 100 mg times Branch capsule daily. Nitrofurant 2020-1 Yes [id number] 100mg Take 1 [facility] oin&Nit. 0-05 capsule by [facility] o [facility] [place] 00:[place]: mouth [place] ([place]CR[place]) 00 (two) Medical 100 mg times Branch capsule daily. Nitrofurant 2020-1 Yes [id number] 100mg Take 1 [facility] oin&Nit. 0-05 capsule by [facility] o [facility] [place] 00:[place]: mouth [place] (MACR[place]) 00 (two) Medical 100 mg times Branch capsule daily. Nitrofurant 2020- Yes [id number] 100mg Take 1 [facility] oin&Nit. 0-05 capsule by [facility] o [facility] [place] 00:[place]: mouth [place] (MACR[place]) 00 (two) Medical 100 mg times Branch capsule daily. Nitrofurant 2020-1 Yes [id number] 100mg Take 1 [facility] oin&Nit. 0-05 capsule by [facility] o [facility] [place] 00:00: mouth [place] (MACR[place]) 00 (two) Medical 100 mg times Branch capsule daily. Nitrofurant 2020-1 Yes [id number] 100mg Take 1 [facility] oin&Nit. 0-05 capsule by [facility] o [facility] [place] 00:[place]: mouth [place] (MACR[place]ID) 00 (two) Medical 100 mg times Branch capsule daily. Nitrofurant 2020-1 Yes [id number] 100mg Take 1 [facility] oin&Nit. 0-05 capsule by [facility] o [facility] [place] 00:[place]: mouth [place] (MACR[place]ID) 00 (two) Medical 100 mg times Branch capsule daily. Nitrofurant 2020-1 Yes [id number] 100mg Take 1 [facility] oin&Nit. 0-05 capsule by [facility] o [facility] [place] 00:[place]: mouth [place] ([place]CR[place]) 00 (two) Medical 100 mg times Branch capsule daily. Nitrofurant 2020-1 Yes [id number] 100mg Take 1 [facility] oin&Nit. 0-05 capsule by [facility] o [facility] [place] 00:[place]: mouth [place] ([place]CR[place]ID) 00 (two) Medical 100 mg times Branch capsule daily. Nitrofurant 2020-1 Yes [id number] 100mg Take 1 [facility] oin&Nit. 0-05 capsule by [facility] o [facility] [place] 00:00: mouth [place] ([place]CR[place]ID) 00 (two) Medical 100 mg times Branch capsule daily. Nitrofurant 2019- Yes [id number] 100mg Take 1 [facility] oin&Nit. 0-05 capsule by [facility] o [facility] [place] 00:00: mouth [place] (MACR[place]ID) 00 (two) Medical 100 mg times Branch capsule daily. Nitrofurant 2019-04 Yes [id number] 100mg Take 1 [facility] oin&Nit. 0-05 capsule by [facility] o [facility] [place] 00:00: mouth [place] ([place]CR[place]) 00 (two) Medical 100 mg times Branch capsule daily. Nitrofurant 2019-04 Yes [id number] 100mg Take 1 [facility] oin&Nit. 0-05 capsule by [facility] o [facility] [place] 00:00: mouth [place] (MACR[place]) 00 (two) Medical 100 mg times Branch capsule daily. Nitrofurant 2019-04 Yes [id number] 100mg Take 1 [facility] oin&Nit. 0-05 capsule by [facility] o [facility] [place] 00:00: mouth [place] (MACR[place]) 00 (two) Medical 100 mg times Branch capsule daily. Nitrofurant 2019-04 Yes [id number] 100mg Take 1 [facility] oin&Nit. 0-05 capsule by [facility] o [facility] [place] 00:00: mouth [place] (MACR[place]ID) 00 (two) Medical 100 mg times Branch capsule daily. Nitrofurant 2019- Yes [id number] 100mg Take 1 [facility] oin&Nit. 0-05 capsule by [facility] o [facility] [place] 00:00: mouth [place] (MACR[place]ID) 00 (two) Medical 100 mg times Branch capsule daily. Nitrofurant 2020- Yes [id number] 100mg Take 1 [facility] oin&Nit. 0-05 capsule by [facility] o [facility] [place] 00:00: mouth [place] (MACROBID) 00 (two) Medical 100 mg times Branch capsule daily. Nitrofurant 2019- Yes [id number] 100mg Take 1 [facility] oin&Nit. 0-05 capsule by [facility] o [facility] [place] 00:00: mouth [place] (MACROBID) 00 (two) Medical 100 mg times Branch capsule daily. Nitrofurant 2020- Yes [id number] 100mg Take 1 [facility] oin&Nit. 0-05 capsule by [facility] o [facility] [place] 00:00: mouth [place] (MACROBID) 00 (two) Medical 100 mg times Branch capsule daily. Nitrofurant 2020- Yes [id number] 100mg Take 1 [facility] oin&Nit. 0-05 capsule by [facility] o [facility] [place] 00:00: mouth 2 [place] (MACROBID) 00 (two) Medical 100 mg times Branch capsule daily. Nitrofurant 2020- Yes [id number] 100mg Take 1 [facility] oin&Nit. 0-05 capsule by [facility] o [facility] [place] 00:00: mouth 2 [place] (MACROBID) 00 (two) Medical 100 mg times Branch capsule daily. Nitrofurant 2020- Yes [id number] 100mg Take 1 [facility] oin&Nit. 0-05 capsule by [facility] o [facility] [place] 00:00: mouth 2 [place] (MACROBID) 00 (two) Medical 100 mg times Branch capsule daily. Nitrofurant 2020- Yes [id number] 100mg Take 1 [facility] oin&Nit. 0-05 capsule by [facility] o [facility] [place] 00:00: mouth [place] (MACROBID) 00 (two) Medical 100 mg times Branch capsule daily. Nitrofurant 2020- Yes [id number] 100mg Take 1 [facility] oin&Nit. 0-05 capsule by [facility] o [facility] [place] 00:00: mouth [place] (MACR[place]) 00 (two) Medical 100 mg times Branch capsule daily. Nitrofurant 2020-1 Yes [id number] 100mg Take 1 [facility] oin&Nit. 0-05 capsule by [facility] o [facility] [place] 00:00: mouth 2 [place] ([place]CR[place]) 00 (two) Medical 100 mg times Branch capsule daily. Nitrofurant 2020- Yes [id number] 100mg Take 1 [facility] oin&Nit. 0-05 capsule by [facility] o [facility] [place] 00:00: mouth 2 [place] ([place]CR[place]) 00 (two) Medical 100 mg times Branch capsule daily. Nitrofurant 2020-1 Yes [id number] 100mg Take 1 [facility] oin&Nit. 0-05 capsule by [facility] o [facility] [place] 00:00: mouth 2 [place] ([place]CR[place]) 00 (two) Medical 100 mg times Branch capsule daily. Nitrofurant 2020- Yes [id number] 100mg Take 1 [facility] oin&Nit. 0-05 capsule by [facility] o [facility] [place] 00:00: mouth 2 [place] ([place]CR[place]) 00 (two) Medical 100 mg times Branch capsule daily. Nitrofurant 2020- Yes [id number] 100mg Take 1 [facility] oin&Nit. 0-05 capsule by [facility] o [facility] [place] 00:00: mouth 2 [place] ([place]CR[place]) 00 (two) Medical 100 mg times Branch capsule daily. Nitrofurant 2020- Yes [id number] 100mg Take 1 [facility] oin&Nit. 0-05 capsule by [facility] o [facility] [place] 00:00: mouth 2 [place] ([place]CR[place]) 00 (two) Medical 100 mg times Branch capsule daily. Nitrofurant 2020- Yes [id number] 100mg Take 1 [facility] oin&Nit. 0-05 capsule by [facility] o [facility] [place] 00:00: mouth 2 [place] (MACR[place]) 00 (two) Medical 100 mg times Branch capsule daily. Nitrofurant 2020- Yes [id number] 100mg Take 1 [facility] oin&Nit. 0-05 capsule by [facility] o [facility] [place] 00:00: mouth 2 [place] ([place]CR[place]) 00 (two) Medical 100 mg times Branch capsule daily. Nitrofurant 2020- Yes [id number] 100mg Take 1 [facility] oin&Nit. 0-05 capsule by [facility] o [facility] [place] 00:00: mouth 2 [place] ([place]CR[place]) 00 (two) Medical 100 mg times Branch capsule daily. Nitrofurant 2020-1 Yes [id number] 100mg Take 1 [facility] oin&Nit. 0-05 capsule by [facility] o [facility] 00:00: mouth 2 [place] (MACR[place]) 00 (two) Medical 100 mg times Branch capsule daily. Nitrofurant 2020- Yes [id number] 100mg Take 1 [facility] oin&Nit. 0-05 capsule by [facility] o f [place] 00:00: mouth 2 [place] ([place]CR[place]) 00 (two) Medical 100 mg times Branch capsule daily. Nitrofurant 2019-04- No [id number] 100mg Take 1 [facility] oin&Nit. 0-05 04-25 capsule by ity of Macrocryst 00:00: 00:00 mouth 2 [place] (MACROBID) 00 :00 (two) Medical 100 mg times Branch capsule daily. Nitrofurant 2019-04- No [id number] 100mg Take 1 [facility] oin&Nit. 0-05 04-25 capsule by ity of [facility]ryst 00:00: 00:00 mouth 2 [place] (MACROBID) 00 :00 (two) Medical 100 mg times Branch capsule daily. 2019-04 Yes [id number] 1{tbl} Take 1 [facility] nivers multivitami 0-01 tablet by ity of n ( 00:00: mouth [place] VITAMIN) 00 daily. Medical tablet Branch 2019-04 Yes [id number] 1{tbl} Take 1 [facility] n[facility] multivitami 0-01 tablet by ity of n ( 00:00: mouth [place] VITAMIN) 00 daily. Medical tablet Branch proMETHazin 2019-04 Yes [id number] 25mg Take 1 [facility] e 25 mg 0-01 tablet by ity of tablet 00:00: mouth [place] 00 every 6 Medical (six) Branch hours as needed for Nausea and Vomiting (N/V). 2019-04 Yes [id number] 1{tbl} Take 1 [facility] n[facility] multivitami 0-01 tablet by ity of n ( 00:00: mouth [place] VITAMIN) 00 daily. Medical tablet Branch proMETHazin 2019-04 Yes [id number] 25mg Take 1 [facility] e 25 mg 0-01 tablet by ity of tablet 00:00: mouth [place] 00 every 6 Medical (six) Branch hours as needed for Nausea and Vomiting (N/V). 2019-04 Yes [id number] 1{tbl} Take 1 [facility] multivitami 0-01 tablet by ity of n ( 00:00: mouth [place] VITAMIN) 00 daily. Medical tablet Branch proMETHazin 2019-04 Yes [id number] 25mg Take 1 [facility] e 25 mg 0-01 tablet by ity of tablet 00:00: mouth [place] 00 every 6 Medical (six) Branch hours as needed for Nausea and Vomiting (N/V). 2019-04 Yes [id number] 1{tbl} Take 1 [facility] nivers multivitami 0-01 tablet by ity of n ( 00:00: mouth [place] VITAMIN) 00 daily. Medical tablet Branch proMETHazin 2019-04 Yes [id number] 25mg Take 1 [facility] e 25 mg 0-01 tablet by ity of tablet 00:00: mouth [place] 00 every 6 Medical (six) Branch hours as needed for Nausea and Vomiting (N/V). 2019-04 Yes [id number] 1{tbl} Take 1 [facility] nivers multivitami 0-01 tablet by ity of n ( 00:00: mouth [place] VITAMIN) 00 daily. Medical tablet Branch proMETHazin 2019-04 Yes [id number] 25mg Take 1 [facility] e 25 mg 0-01 tablet by ity of tablet 00:00: mouth [place] 00 every 6 Medical (six) Branch hours as needed for Nausea and Vomiting (N/V). 2019-04 Yes [id number] 1{tbl} Take 1 [facility] nivers multivitami 0-01 tablet by ity of n ( 00:00: mouth [place] VITAMIN) 00 daily. Medical tablet Branch proMETHazin 2019-04 Yes [id number] 25mg Take 1 [facility] e 25 mg 0-01 tablet by ity of tablet 00:00: mouth [place] 00 every 6 Medical (six) Branch hours as needed for Nausea and Vomiting (N/V). 2019-04 Yes [id number] 1{tbl} Take 1 [facility] n[facility] multivitami 0-01 tablet by ity of n ( 00:00: mouth [place] VITAMIN) 00 daily. Medical tablet Branch proMETHazin 2019-04 Yes [id number] 25mg Take 1 [facility] e 25 mg 0-01 tablet by ity of tablet 00:00: mouth [place] 00 every 6 Medical (six) Branch hours as needed for Nausea and Vomiting (N/V). 2019-04 Yes [id number] 1{tbl} Take 1 [facility] n[facility] multivitami 0-01 tablet by ity of n ( 00:00: mouth [place] VITAMIN) 00 daily. Medical tablet Branch proMETHazin 2019-04 Yes [id number] 25mg Take 1 [facility] e 25 mg 0-01 tablet by ity of tablet 00:00: mouth [place] 00 every 6 Medical (six) Branch hours as needed for Nausea and Vomiting (N/V). 2019-04 Yes [id number] 1{tbl} Take 1 [facility] n[facility] multivitami 0-01 tablet by ity of n ( 00:00: mouth [place] VITAMIN) 00 daily. Medical tablet Branch proMETHazin 2019-04 Yes [id number] 25mg Take 1 [facility] e 25 mg 0-01 tablet by ity of tablet 00:00: mouth [place] 00 every 6 Medical (six) Branch hours as needed for Nausea and Vomiting (N/V). 2019-04 Yes [id number] 1{tbl} Take 1 [facility] n[facility] multivitami 0-01 tablet by ity of n ( 00:00: mouth [place] VITAMIN) 00 daily. Medical tablet Branch proMETHazin 2019-04 Yes [id number] 25mg Take 1 [facility] e 25 mg 0-01 tablet by ity of tablet 00:00: mouth [place] 00 every 6 Medical (six) Branch hours as needed for Nausea and Vomiting (N/V). 2019-04 Yes [id number] 1{tbl} Take 1 [facility] n[facility] multivitami 0-01 tablet by ity of n ( 00:00: mouth [place] VITAMIN) 00 daily. Medical tablet Branch proMETHazin 2019-04 Yes [id number] 25mg Take 1 [facility] e 25 mg 0-01 tablet by ity of tablet 00:00: mouth [place] 00 every 6 Medical (six) Branch hours as needed for Nausea and Vomiting (N/V). 2019-04 Yes [id number] 1{tbl} Take 1 [facility] multivitami 0-01 tablet by ity of n ( 00:00: mouth [place] VITAMIN) 00 daily. Medical tablet Branch proMETHazin 2019-04 Yes [id number] 25mg Take 1 [facility] e 25 mg 0-01 tablet by ity of tablet 00:00: mouth [place] 00 every 6 Medical (six) Branch hours as needed for Nausea and Vomiting (N/V). 2019-04 Yes [id number] 1{tbl} Take 1 [facility] multivitami 0-01 tablet by ity of n ( 00:00: mouth [place] VITAMIN) 00 daily. Medical tablet Branch proMETHazin 2019-04 Yes [id number] 25mg Take 1 [facility] e 25 mg 0-01 tablet by ity of tablet 00:00: mouth [place] 00 every 6 Medical (six) Branch hours as needed for Nausea and Vomiting (N/V). 2019-04 Yes [id number] 1{tbl} Take 1 [facility] multivitami 0-01 tablet by ity of n ( 00:00: mouth [place] VITAMIN) 00 daily. Medical tablet Branch proMETHazin 2019-04 Yes [id number] 25mg Take 1 [facility] e 25 mg 0-01 tablet by ity of tablet 00:00: mouth [place] 00 every 6 Medical (six) Branch hours as needed for Nausea and Vomiting (N/V). 2019-04 Yes [id number] 1{tbl} Take 1 [facility] multivitami 0-01 tablet by ity of n ( 00:00: mouth [place] VITAMIN) 00 daily. Medical tablet Branch proMETHazin 2019-04 Yes [id number] 25mg Take 1 [facility] e 25 mg 0-01 tablet by ity of tablet 00:00: mouth [place] 00 every 6 Medical (six) Branch hours as needed for Nausea and Vomiting (N/V). 2019-04 Yes [id number] 1{tbl} Take 1 [facility] multivitami 0-01 tablet by ity of n ( 00:00: mouth [place] VITAMIN) 00 daily. Medical tablet Branch proMETHazin 2019-04 Yes [id number] 25mg Take 1 [facility] e 25 mg 0-01 tablet by ity of tablet 00:00: mouth [place] 00 every 6 Medical (six) Branch hours as needed for Nausea and Vomiting (N/V). 2019-04 Yes [id number] 1{tbl} Take 1 [facility] multivitami 0-01 tablet by ity of n ( 00:00: mouth [place] VITAMIN) 00 daily. Medical tablet Branch proMETHazin 2019-04 Yes [id number] 25mg Take 1 [facility] e 25 mg 0-01 tablet by ity of tablet 00:00: mouth [place] 00 every 6 Medical (six) Branch hours as needed for Nausea and Vomiting (N/V). 2019-04 Yes [id number] 1{tbl} Take 1 [facility] n[facility] multivitami 0-01 tablet by ity of n ( 00:00: mouth [place] VITAMIN) 00 daily. Medical tablet Branch proMETHazin 2019-04 Yes [id number] 25mg Take 1 [facility] e 25 mg 0-01 tablet by ity of tablet 00:00: mouth [place] 00 every 6 Medical (six) Branch hours as needed for Nausea and Vomiting (N/V). 2019-04 Yes [id number] 1{tbl} Take 1 [facility] n[facility] multivitami 0-01 tablet by ity of n ( 00:00: mouth [place] VITAMIN) 00 daily. Medical tablet Branch proMETHazin 2019-04 Yes [id number] 25mg Take 1 [facility] e 25 mg 0-01 tablet by ity of tablet 00:00: mouth [place] 00 every 6 Medical (six) Branch hours as needed for Nausea and Vomiting (N/V). 2019-04 Yes [id number] 1{tbl} Take 1 [facility] n[facility] multivitami 0-01 tablet by ity of n ( 00:00: mouth [place] VITAMIN) 00 daily. Medical tablet Branch proMETHazin 2019-04 Yes [id number] 25mg Take 1 [facility] e 25 mg 0-01 tablet by ity of tablet 00:00: mouth [place] 00 every 6 Medical (six) Branch hours as needed for Nausea and Vomiting (N/V). 2019-04 Yes [id number] 1{tbl} Take 1 [facility] multivitami 0-01 tablet by ity of n ( 00:00: mouth [place] VITAMIN) 00 daily. Medical tablet Branch proMETHazin 2019-04 Yes [id number] 25mg Take 1 [facility] e 25 mg 0-01 tablet by ity of tablet 00:00: mouth [place] 00 every 6 Medical (six) Branch hours as needed for Nausea and Vomiting (N/V). 2019-04 Yes [id number] 1{tbl} Take 1 [facility] multivitami 0-01 tablet by ity of n ( 00:00: mouth [place] VITAMIN) 00 daily. Medical tablet Branch proMETHazin 2019-04 Yes [id number] 25mg Take 1 [facility] e 25 mg 0-01 tablet by ity of tablet 00:00: mouth [place] 00 every 6 Medical (six) Branch hours as needed for Nausea and Vomiting (N/V). 2019-04 Yes [id number] 1{tbl} Take 1 [facility] multivitami 0-01 tablet by ity of n ( 00:00: mouth [place] VITAMIN) 00 daily. Medical tablet Branch proMETHazin 2019-04 Yes [id number] 25mg Take 1 [facility] e 25 mg 0-01 tablet by ity of tablet 00:00: mouth [place] 00 every 6 Medical (six) Branch hours as needed for Nausea and Vomiting (N/V). 2019-04 Yes [id number] 1{tbl} Take 1 [facility] multivitami 0-01 tablet by ity of n ( 00:00: mouth [place] VITAMIN) 00 daily. Medical tablet Branch proMETHazin 2019-04 Yes [id number] 25mg Take 1 [facility] e 25 mg 0-01 tablet by ity of tablet 00:00: mouth [place] 00 every 6 Medical (six) Branch hours as needed for Nausea and Vomiting (N/V). 2019-04 Yes [id number] 1{tbl} Take 1 [facility] multivitami 0-01 tablet by ity of n ( 00:00: mouth [place] VITAMIN) 00 daily. Medical tablet Branch proMETHazin 2019-04 Yes [id number] 25mg Take 1 [facility] e 25 mg 0-01 tablet by ity of tablet 00:00: mouth [place] 00 every 6 Medical (six) Branch hours as needed for Nausea and Vomiting (N/V). 2019-04 Yes [id number] 1{tbl} Take 1 [facility] n[facility] multivitami 0-01 tablet by ity of n ( 00:00: mouth [place] VITAMIN) 00 daily. Medical tablet Branch proMETHazin 2019-04 Yes [id number] 25mg Take 1 [facility] e 25 mg 0-01 tablet by ity of tablet 00:00: mouth [place] 00 every 6 Medical (six) Branch hours as needed for Nausea and Vomiting (N/V). 2019-04 Yes [id number] 1{tbl} Take 1 [facility] multivitami 0-01 tablet by ity of n ( 00:00: mouth [place] VITAMIN) 00 daily. Medical tablet Branch proMETHazin 2019-04 Yes [id number] 25mg Take 1 [facility] e 25 mg 0-01 tablet by ity of tablet 00:00: mouth [place] 00 every 6 Medical (six) Branch hours as needed for Nausea and Vomiting (N/V). 2019-04 Yes [id number] 1{tbl} Take 1 [facility] multivitami 0-01 tablet by ity of n ( 00:00: mouth [place] VITAMIN) 00 daily. Medical tablet Branch proMETHazin 2019-04 Yes [id number] 25mg Take 1 [facility] e 25 mg 0-01 tablet by ity of tablet 00:00: mouth [place] 00 every 6 Medical (six) Branch hours as needed for Nausea and Vomiting (N/V). 2019-04 Yes [id number] 1{tbl} Take 1 [facility] multivitami 0-01 tablet by ity of n ( 00:00: mouth [place] VITAMIN) 00 daily. Medical tablet Branch proMETHazin 2019-04 Yes [id number] 25mg Take 1 [facility] e 25 mg 0-01 tablet by ity of tablet 00:00: mouth [place] 00 every 6 Medical (six) Branch hours as needed for Nausea and Vomiting (N/V). 2019-04 Yes [id number] 1{tbl} Take 1 [facility] multivitami 0-01 tablet by ity of n ( 00:00: mouth [place] VITAMIN) 00 daily. Medical tablet Branch proMETHazin 2019-04 Yes [id number] 25mg Take 1 [facility] e 25 mg 0-01 tablet by ity of tablet 00:00: mouth [place] 00 every 6 Medical (six) Branch hours as needed for Nausea and Vomiting (N/V). 2019-04 Yes [id number] 1{tbl} Take 1 [facility] multivitami 0-01 tablet by ity of n ( 00:00: mouth [place] VITAMIN) 00 daily. Medical tablet Branch proMETHazin 2019-04 Yes [id number] 25mg Take 1 [facility] e 25 mg 0-01 tablet by ity of tablet 00:00: mouth [place] 00 every 6 Medical (six) Branch hours as needed for Nausea and Vomiting (N/V). 2019-04 Yes [id number] 1{tbl} Take 1 [facility] mult[facility]itami 0-01 tablet by ity of n ( 00:00: mouth [place] VITAMIN) 00 daily. Medical tablet Branch proMETHazin 2019-04 Yes [id number] 25mg Take 1 [facility] e 25 mg 0-01 tablet by ity of tablet 00:00: mouth [place] 00 every 6 Medical (six) Branch hours as needed for Nausea and Vomiting (N/V). 2019-04 Yes [id number] 1{tbl} Take 1 [facility] multivitami 0-01 tablet by [facility]y of n ( 00:00: mouth [place] VITAMIN) 00 daily. Medical tablet Branch proMETHazin 2019-04 Yes [id number] 25mg Take 1 [facility] e 25 mg 0-01 tablet by ity of tablet 00:00: mouth [place] 00 every 6 Medical (six) Branch hours as needed for Nausea and Vomiting (N/V). 2019-04 Yes [id number] 1{tbl} Take 1 [facility] multivitami 0-01 tablet by [facility]y of n ( 00:00: mouth [place] VITAMIN) 00 daily. Medical tablet Branch proMETHazin 2019-04 Yes [id number] 25mg Take 1 [facility] e 25 mg 0-01 tablet by ity of tablet 00:00: mouth [place] 00 every 6 Medical (six) Branch hours as needed for Nausea and Vomiting (N/V). 2019-04 Yes [id number] 1{tbl} Take 1 [facility] multivitami 0-01 tablet by [facility]y of n ( 00:00: mouth [place] VITAMIN) 00 daily. Medical tablet Branch proMETHazin 2019-04 Yes [id number] 25mg Take 1 [facility] e 25 mg 0-01 tablet by ity of tablet 00:00: mouth [place] 00 every 6 Medical (six) Branch hours as needed for Nausea and Vomiting (N/V). 2019-04 Yes [id number] 1{tbl} Take 1 [facility] multivitami 0-01 tablet by [facility]y of n ( 00:00: mouth [place] VITAMIN) 00 daily. Medical tablet Branch proMETHazin 2019-04 Yes [id number] 25mg Take 1 [facility] e 25 mg 0-01 tablet by ity of tablet 00:00: mouth [place] 00 every 6 Medical (six) Branch hours as needed for Nausea and Vomiting (N/V). 2019-04 Yes [id number] 1{tbl} Take 1 [facility] mult[facility]itami 0-01 tablet by ity of n ( 00:00: mouth [place] VITAMIN) 00 daily. Medical tablet Branch proMETHazin 2019-04 Yes [id number] 25mg Take 1 [facility] e 25 mg 0-01 tablet by ity of tablet 00:00: mouth [place] 00 every 6 Medical (six) Branch hours as needed for Nausea and Vomiting (N/V). 2019-04 Yes [id number] 1{tbl} Take 1 [facility] multivitami 0-01 tablet by ity of n ( 00:00: mouth [place] VITAMIN) 00 daily. Medical tablet Branch proMETHazin 2019-04 Yes [id number] 25mg Take 1 [facility] e 25 mg 0-01 tablet by ity of tablet 00:00: mouth [place] 00 every 6 Medical (six) Branch hours as needed for Nausea and Vomiting (N/V). 2019-04 Yes [id number] 1{tbl} Take 1 [facility] multivitami 0-01 tablet by ity of n ( 00:00: mouth [place] VITAMIN) 00 daily. Medical tablet Branch proMETHazin 2019-04 Yes [id number] 25mg Take 1 [facility] e 25 mg 0-01 tablet by ity of tablet 00:00: mouth [place] 00 every 6 Medical (six) Branch hours as needed for Nausea and Vomiting (N/V). 2019-04- No [id number] 1{tbl} Take 1 [facility] multivitami 0-01 04-25 tablet by it y of n ( 00:00: 00:00 [place] VITAMIN[place] 00 :00 daily. Medical tablet Branch proMETHazin 2019-04- No [id number] 25mg Take 1 [facility] e 25 mg 0-01 04-25 tablet by ity of tablet 00:00: 00:00 mouth [place] 00 :00 every 6 Medical (six) Branch hours as needed for Nausea and Vomiting (N/V). 2019-04- No [id number] 1{tbl} Take 1 [facility] multivitami 0-01 04-25 tablet by it y of n ( 00:00: 00:00 [place] VITAMIN[place] 00 :00 daily. Medical tablet Branch proMETHazin 2019-04- No [id number] 25mg Take 1 [facility] 25 mg 0-01 04-25 tablet by ity of tablet 00:00: 00:00 mouth [place] 00 :00 every 6 Medical (six) Branch hours as needed for Nausea and Vomiting (N/V). 2019- No Take by [facility] rs vit 8-25 08-25 mouth. ity of calc,iron,f 14:16: 00:00 [place] olic 42 :00 Medical ( Branch VITAMIN ORAL) 2019- No Take by [facility] rs vit 8-25 08-25 mouth. ity of calc,iron,f 14:16: 00:00 [place] olic 42 :00 Medical ( Branch VITAMIN ORAL) oxyCODONE-a 2021- No 1{tbl} Take [address] cetaminophe 3-17 05-24 tablet by [facility] 00:00: 00:00 mouth Medical (PERCOCET) 00 :00 every 4 Center 5-325 mg (four) per tablet hours as needed. Max Daily Amount: 6 tablets oxyCODONE-a 2021- No 1{tbl} Take [address] cetaminophe 3-17 05-24 tablet by [employer] [facility] 00:00: 00:00 [facility] (PERCOCET) 00 :00 every 4 Center 5-325 mg (four) per tablet hours as needed. Max Daily Amount: 6 tablets oxyCODONE-a 2021- No 1{tbl} Take [address] cetaminophe 3-17 05-24 tablet by [employer] [facility] 00:00: 00:00 [facility] (PERCOCET) 00 :00 every 4 Center 5-325 mg (four) per tablet hours as needed. Max Daily Amount: 6 tablets oxyCODONE-a 2021- No 1{tbl} Take [address] cetaminophe 3-17 05-24 tablet by [facility] 00:00: 00:00 [facility] (PERCOCET) 00 :00 every 4 Center 5-325 mg (four) per tablet hours as needed. Max Daily Amount: 6 tablets oxyCODONE-a 2021- No 1{tbl} Take [address] cetaminophe 3-17 05-24 tablet by [facility] 00:00: 00:00 [facility] (PERCOCET) 00 :00 every 4 Center 5-325 mg (four) per tablet hours as needed. Max Daily Amount: 6 tablets oxyCODONE-a 2021- No 1{tbl} Take [address] cetaminophe 3-17 05-24 tablet by [facility] 00:00: 00:00 [facility] (PERCOCET) 00 :00 every 4 Center 5-325 mg (four) per tablet hours as needed. Max Daily Amount: 6 tablets oxyCODONE-a 2021- No 1{tbl} Take [address] cetaminophe 3-17 05-24 tablet by [facility] 00:00: 00:00 [facility] (PERCOCET) 00 :00 every 4 Center 5-325 mg (four) per tablet hours as needed. Max Daily Amount: 6 tablets oxyCODONE-a 2021- No 1{tbl} Take [address] cetaminophe 3-17 05-24 tablet by [facility] 00:00: 00:00 [facility] (PERCOCET) 00 :00 every 4 Center 5-325 mg (four) per tablet hours as needed. Max Daily Amount: 6 tablets oxyCODONE-a 2021- No 1{tbl} Take [address] cetaminophe 3-17 05-24 tablet by [facility] 00:00: 00:00 [facility] (PERCOCET) 00 :00 every 4 Center 5-325 mg (four) per tablet hours as needed. Max Daily Amount: 6 tablets oxyCODONE-a 2021- No 1{tbl} Take [address] cetaminophe 3-17 05-24 tablet by [facility] 00:00: 00:00 [facility] (PERCOCET) 00 :00 every 4 Center 5-325 mg (four) per tablet hours as needed. Max Daily Amount: 6 tablets oxyCODONE-a 2021- No 1{tbl} Take [address] cetaminophe 3-17 05-24 tablet by [facility] 00:00: 00:00 [facility] (PERCOCET) 00 :00 every 4 Center 5-325 mg (four) per tablet hours as needed. Max Daily Amount: 6 tablets oxyCODONE-a 2021- No 1{tbl} Take [address] cetaminophe 3-17 05-24 tablet by [facility] 00:00: 00:00 [facility] (PERCOCET) 00 :00 every 4 Center 5-325 mg (four) per tablet hours as needed. Max Daily Amount: 6 tablets oxyCODONE-a 2021- No 1{tbl} Take [address] cetaminophe 3-17 05-24 tablet by [facility] 00:00: 00:00 [facility] (PERCOCET) 00 :00 every 4 Center 5-325 mg (four) per tablet hours as needed. Max Daily Amount: 6 tablets Yes Take by [facility] s vit 9-24 mouth. ity of calc,iron,f 16:51: [place] [id number] Medical ( Branch VITAMIN ORAL) 2019-0 Yes Take by Univer s vit 9-24 mouth. ity of calc,iron,f 16:51: [place] [address] Medical ( Branch VITAMIN ORAL) 2019-0 Yes Take by Univer s vit 9-24 mouth. ity of calc,iron,f 16:51: [place] [address] Medical ( Branch VITAMIN ORAL) 2019-0 Yes Take by Unive rs vit 9-24 mouth. ity of calc,iron,f 16:51: [place] [address] Medical ( Branch VITAMIN ORAL) 2019-0 Yes Take by Univer s vit 9-24 mouth. ity of calc,iron,f 16:51: [place] [address] Medical ( Branch VITAMIN ORAL) 2019-0 Yes Take by Univer s vit 9-24 mouth. ity of calc,iron,f 16:51: [place] [address] Medical ( Branch VITAMIN ORAL) 2019-0 Yes Take by Univer s vit 9-24 mouth. ity of calc,iron,f 16:51: [place] [address] Medical ( Branch VITAMIN ORAL) 2019-0 Yes Take by Univer s vit 9-24 mouth. ity of calc,iron,f 16:51: [place] [address] Medical ( Branch VITAMIN ORAL) 2019-0 Yes Take by Univer s vit 9-24 mouth. ity of calc,iron,f 16:51: [place] [address] Medical ( Branch VITAMIN ORAL) 2019-0 Yes Take by Univer s vit 9-24 mouth. ity of calc,iron,f 16:51: [place] [address] Medical ( Branch VITAMIN ORAL) 2019-0 Yes Take by Univer s vit 9-24 mouth. ity of calc,iron,f 16:51: [place] [address] Medical ( Branch VITAMIN ORAL) 2019-0 Yes Take by Univer s vit 9-24 mouth. ity of calc,iron,f 16:51: [place] [address] Medical ( Branch VITAMIN ORAL) 2019-0 Yes Take by Univer s vit 9-24 mouth. ity of calc,iron,f 16:51: [place] [address] Medical ( Branch VITAMIN ORAL) 2019-0 Yes Take by Univer s vit 9-24 mouth. ity of calc,iron,f 16:51: [place] [address] Medical ( Branch VITAMIN ORAL) 2018- Yes Take by [facility] vit 9-24 mouth. ity of calc,iron,f 16:51: [place] [address] Medical ( Branch VITAMIN ORAL) 2019-0 Yes Take by [facility] [employer] vit 9-24 mouth. ity of calc,iron,f 16:51: [place] [address] Medical ( Branch VITAMIN ORAL) 2019- Yes Take by [facility] vit 9-24 mouth. ity of calc,iron,f 16:51: [place] [address] Medical ( Branch VITAMIN ORAL) 2018- Yes Take by [facility] vit 9-24 mouth. ity of calc,iron,f 16:51: [address] ( Branch VITAMIN ORAL) miSOPROStol 2019- No [id number] 800ug Univers (CYTOTEC) 01-05 ity of tablet 800 17:45: 16:45 [place] mcg 00 :00 Medical Branch ibuprofen 2019- No [id number] 800mg Un neris (IBU) 01-05 ity of tablet 800 17:45: 16:45 [place] mg 00 :00 Medical Branch ibuprofen 2019- No [id number] 800mg 800 mg, Univers (IBU) 01-05 Oral, ity of tablet 800 17:45: 16:45 ONCE, 1 Ronal as mg 00 :00 dose, [facility] 01/05/19 at Branch 1245, Routine miSOPROStol 2019- No [id number] 800ug 800 mcg, Univers (CYTOTEC) 01-05 Vaginal, ity o f tablet 800 17:45: 16:45 ONCE, 1 Ronal as mcg 00 :00 dose, [facility] 01/05/19 at Branch 1245, Routine HYDROcodone 2018- Yes [id number] 1{tbl} Take 1 Univers -acetaminop - tablet by ity of hen 5-325 00:00: mouth [place] mg tablet 00 every 6 Medical (six) Branch hours as needed for Pain (scale 4-6) or Pain (scale 7-10). ibuprofen Yes [id number] 800mg Take 1 U nivers 800 mg - tablet by ity of tablet 00:00: mouth [place] 00 every 8 Medical (eight) Branch hours as needed (prn pain). HYDROcodone Yes [id number] 1{tbl} Take 1 Univers -acetaminop 9-13 tablet by ity of hen 5-325 00:00: mouth [place] mg tablet 00 every 6 Medical (six) Branch hours as needed for Pain (scale 4-6) or Pain (scale 7-10). ibuprofen Yes [id number] 800mg Take 1 U nivers 800 mg 9-13 tablet by ity of tablet 00:00: mouth [place] 00 every 8 Medical (eight) Branch hours as needed (prn pain). HYDROcodone Yes [id number] 1{tbl} Take 1 Univers -acetaminop 9-13 tablet by ity of hen 5-325 00:00: mouth [place] mg tablet 00 every 6 Medical (six) Branch hours as needed for Pain (scale 4-6) or Pain (scale 7-10). ibuprofen Yes [id number] 800mg Take 1 U nivers 800 mg 9-13 tablet by ity of tablet 00:00: mouth [place] 00 every 8 Medical (eight) Branch hours as needed (prn pain). HYDROcodone Yes [id number] 1{tbl} Take 1 Univers -acetaminop 9-13 tablet by ity of hen 5-325 00:00: mouth [place] mg tablet 00 every 6 Medical (six) Branch hours as needed for Pain (scale 4-6) or Pain (scale 7-10). ibuprofen Yes [id number] 800mg Take 1 U nivers 800 mg 9-13 tablet by ity of tablet 00:00: mouth [place] 00 every 8 Medical (eight) Branch hours as needed (prn pain). miSOPROStol 2018- No 800ug Univ ers (CYTOTEC) 01-02 ity of tablet 800 17:00: 04:59 [place] mcg 00 :00 Medical Branch ibuprofen 2018- No 800mg Univer s (IBU) 01-02 ity of tablet 800 17:00: 04:59 [place] mg 00 :00 Medical Branch miSOPROStol 2018- No 800ug Univ ers (CYTOTEC) 01-02 ity of tablet 800 17:00: 16:00 [place] mcg 00 :00 Medical Branch ibuprofen 2018- No 800mg Univer s (IBU) 01-02 ity of tablet 800 17:00: 16:00 [place] mg 00 :00 Medical Branch ibuprofen 2019- No 800mg 800 mg, Uni vers (IBU) 01-02 Oral, ity of tablet 800 17:00: 16:00 ONCE, 1 [facility] as mg 00 :00 dose, [facility] 01/02[facility]19 at Branch 1200, Routine miSOPROStol 2019- No 800ug 800 mcg, Univers (CYTOTEC) 01-02 Vaginal, ity o f tablet 800 17:00: 16:00 ONCE, 1 [facility]onal as mcg 00 :00 dose, [facility] 01/02/19 at Branch 1200, Routine ibuprofen Yes [id number] 800mg Take 1 U nivers 800 mg 9-10 tablet by ity of tablet 00:00: mouth [place] 00 every 8 Medical (eight) Branch hours as needed (prn pain). HYDROcodone Yes [id number] 1{tbl} Take 1 Univers -acetaminop 9-10 tablet by ity of hen 5-325 00:00: mouth [place] mg tablet 00 every 6 Medical (six) Branch hours as needed for Pain (scale 4-6) or Pain (scale 7-10). ibuprofen Yes [id number] 800mg Take 1 U nivers 800 mg 9-10 tablet by ity of tablet 00:00: mouth [place] 00 every 8 Medical (eight) Branch hours as needed (prn pain). HYDROcodone Yes [id number] 1{tbl} Take 1 Univers -acetaminop 9-10 tablet by ity of hen 5-325 00:00: mouth [place] mg tablet 00 every 6 Medical (six) Branch hours as needed for Pain (scale 4-6) or Pain (scale 7-10). ibuprofen 2019- No [id number] 800mg Take 1 Univers 800 mg -10 01-05 tablet by ity of tablet 00:00: 00:00 mouth [place] 00 :00 every 8 Medical (eight) Branch hours as needed (prn pain). HYDROcodone 2019- No [id number] 1{tbl} Take 1 Univers -acetaminop 9-10 -13 tablet by it y of hen 5-325 00:00: 00:00 mouth [place] mg tablet 00 :00 every 6 Medical (six) Branch hours as needed for Pain (scale 4-6) or Pain (scale 7-10). sulfamethox 2019- No [id number] 1{tbl} Take 1 Univers azole-trime -08 01- tablet by it y of thoprim 00:00: 04:59 mouth 2 [place] (BACTRIM 00 :00 (two) Medical DS) 800-160 times Branch mg per daily for tablet 3 days. sulfamethox 2019- No [id number] 1{tbl} Take 1 Univers azole-trime -12-31 tablet by it y of thoprim 00:00: 04:59 mouth 2 [place] (BACTRIM 00 :00 (two) Medical DS) 800-160 times Branch mg per daily for tablet 3 days. 2019-0 Yes Take by [facility] s vit 8-30 mouth. ity of calc,iron,f 19:42: [place] [id number] Medical ( Branch VITAMIN ORAL) 2019-0 Yes Take by [facility] s vit 8-30 mouth. ity of calc,iron,f 19:42: [place] [id number] Medical ( Branch VITAMIN ORAL) 2019-0 Yes Take by [facility] s vit 8-30 mouth. ity of calc,iron,f 19:42: [place] [id number] Medical ( Branch VITAMIN ORAL) 2019-0 Yes Take by Univer s vit 8-30 mouth. ity of calc,iron,f 19:42: [place] [id number] Medical ( Branch VITAMIN ORAL) 2019-0 Yes Take by [facility] s vit 8-30 mouth. ity of calc,iron,f 19:42: [place] [id number] Medical ( Branch VITAMIN ORAL) 2019-0 Yes Take by Univer s vit 8-30 mouth. ity of calc,iron,f 19:42: [place] [id number] Medical ( Branch VITAMIN ORAL) 2019-0 Yes Take by Univer s vit 8-30 mouth. ity of calc,iron,f 19:42: [place] [id number] Medical ( Branch VITAMIN ORAL) 2019-0 Yes Take by Univer s vit 8-30 mouth. ity of calc,iron,f 19:42: [place] [id number] Medical ( Branch VITAMIN ORAL) 2019-0 Yes Take by Univer s vit 8-30 mouth. ity of calc,iron,f 19:42: [place] [address] Medical ( Branch VITAMIN ORAL) Yes Take by Univer s vit 8-30 mouth. ity of calc,iron,f 19:42: [place] [id number] Medical ( Branch VITAMIN ORAL) Yes Take by Univer s vit 8-30 mouth. ity of calc,iron,f 19:42: [place] [id number] Medical ( Branch VITAMIN ORAL) traMADOL Yes [id number] 50mg Take 1 Un neris (ULTRAM) 50 2-03 tablet by ity of mg tablet 00:00: mouth [place] 00 every 6 Medical (six) Branch hours as needed for Pain (scale 4-6). cyclobenzap Yes [id number] 5mg Take 1 Univers rine 5 mg 2-03 tablet by ity o f tablet 00:00: mouth 3 [place] 00 (three) Medical times Branch daily. traMADOL 2019- No [id number] 50mg Take 1 U nivers (ULTRAM) 50 2-03 08-30 tablet by it y of mg tablet 00:00: 00:00 mouth [place] 00 :00 every 6 Medical (six) Branch hours as needed for Pain (scale 4-6). cyclobenzap 2019- No [id number] 5mg Take 1 Univers rine 5 mg 2-03 08-30 tablet by ity of tablet 00:00: 00:00 mouth 3 [place] 00 :00 (three) Medical times Branch daily. No known No Univers medications ity of [facility] Immunizations Ordered Filled Immunization Date Status Comments [facility] e Immunization Name Name TDAP 2020-06-19 Completed University of 00:00:00 [facility] TDAP 2020-06-19 Completed University of 00:00:00 [facility] TDAP 2020-06-19 Completed University of 00:00:00 [facility] TDAP 2020-06-19 Completed University of 00:00:00 [facility] TDAP 2020-06-19 Completed University of 00:00:00 [facility] TDAP 2020-06-19 Completed University of 00:00:00 [facility] TDAP 2020-06-19 Completed University of 00:00:00 [facility] TDAP 2020-06-19 Completed University of 00:00:00 [facility] TDAP 2020-06-19 Completed University of 00:00:00 [facility] TDAP 2020-06-19 Completed University of 00:00:00 [facility] [place] TDAP 2020-06-19 Completed University of 00:00:00 [facility] [place] TDAP 2020-06-19 Completed University of 00:00:00 [facility] TDAP 2020-06-19 Completed University of 00:00:00 [facility] [place] TDAP 2020-06-19 Completed University of 00:00:00 [facility] [place] TDAP 2020-06-19 Completed University of 00:00:00 [facility] Branch TDAP 2020-06-19 Completed University of 00:00:00 [facility] TDAP 2020-06-19 Completed University of 00:00:00 [facility] TDAP 2020-06-19 Completed University of 00:00:00 [facility] TDAP 2020-06-19 Completed University of 00:00:00 [facility] TDAP 2020-06-19 Completed University of 00:00:00 [facility] TDAP 2020-06-19 Completed University of 00:00:00 [facility] TDAP 2020-06-19 Completed University of 00:00:00 [facility] Influenza Virus 2020-01-24 Completed Universit y of [facility] [place] .5 mL 00:00:00 [place] [facility] IM 6+ MO Branch Influenza Virus 2020-01-24 Completed Universit y of [facility] [place] .5 mL 00:00:00 [place] [facility] IM 6+ MO Branch Influenza Virus 2020-01-24 Completed Universit y of [facility] [place] .5 mL 00:00:00 [place] [facility] IM 6+ MO Branch Influenza Virus 2020-01-24 Completed Universit y of [facility] [place] .5 mL 00:00:00 [place] [facility] IM 6+ MO Branch Influenza Virus 2020-01-24 Completed Universit y of [facility] [place] .5 mL 00:00:00 [facility] [place] [facility] IM 6+ MO Branch Influenza Virus 2020-01-24 Completed Universit y of [facility] [place] .5 mL 00:00:00 [place] [facility] IM 6+ MO Branch Influenza Virus 2020-01-24 Completed Universit y of [facility] [place] .5 mL 00:00:00 [place] [facility] IM 6+ MO Branch Influenza Virus 2020-01-24 Completed Universit y of [facility] [place] .5 mL 00:00:00 [place] [facility] IM 6+ MO Branch Influenza Virus [...] y of Vaccine [facility] .5 mL 00:00:00 [place] [facility] 6+ MO Branch TDAP 2019-02-23 Completed University of 00:00:00 [facility] [place] TDAP 2019-02-23 Completed University of 00:00:00 [facility] TDAP 2019-02-23 Completed University of 00:00:00 [facility] TDAP 2019-02-23 Completed University of 00:00:00 [facility] TDAP 2019-02-23 Completed University of 00:00:00 [facility] TDAP 2019-02-23 Completed University of 00:00:00 [facility] TDAP 2019-02-23 Completed University of 00:00:00 [facility] TDAP 2019-02-23 Completed University of 00:00:00 [facility] TDAP 2019-02-23 Completed University of 00:00:00 [facility] TDAP 2019-02-23 Completed University of 00:00:00 [facility] TDAP 2019-02-23 Completed University of 00:00:00 [facility] TDAP 2019-02-23 Completed University of 00:00:00 [facility] TDAP 2019-02-23 Completed University of 00:00:00 [facility] TDAP 2019-02-23 Completed University of 00:00:00 [facility] TDAP 2019-02-23 Completed University of 00:00:00 [facility] TDAP 2019-02-23 Completed University of 00:00:00 [facility] TDAP 2019-02-23 Completed University of 00:00:00 [facility] TDAP 2019-02-23 Completed University of 00:00:00 [facility] TDAP 2019-02-23 Completed University of 00:00:00 [facility] TDAP 2019-02-23 Completed University of 00:00:00 [facility] TDAP 2019-02-23 Completed University of 00:00:00 [facility] Branch TDAP 2019-02-23 Completed University of 00:00:00 [facility] [place] [facility] TDAP 2019-02-23 Completed University of 00:00:00 [facility] [place] [facility] TDAP 2019-02-23 Completed University of 00:00:00 [facility] [place] [facility] TDAP 2019-02-23 Completed University of 00:00:00 [facility] [place] [facility] TDAP 2019-02-23 Completed University of 00:00:00 [facility] Branch TDAP 2019-02-23 Completed University of 00:00:00 [facility] Branch TDAP 2019-02-23 Completed University of 00:00:00 [facility] Branch TDAP 2019-02-23 Completed University of 00:00:00 [facility] Branch TDAP 2019-02-23 Completed University of 00:00:00 [facility] Branch TDAP 2019-02-23 Completed University of 00:00:00 [facility] Branch TDAP 2019-02-23 Completed University of 00:00:00 [facility] Branch TDAP 2019-02-23 Completed University of 00:00:00 [facility] Branch TDAP 2019-02-23 Completed University of 00:00:00 [facility] Branch TDAP 2019-02-23 Completed University of 00:00:00 [facility] Branch TDAP 2019-02-23 Completed University of 00:00:00 [facility] Branch TDAP 2019-02-23 Completed University of 00:00:00 [facility] TDAP 2019-02-23 Completed University of 00:00:00 [facility] Branch TDAP 2019-02-23 Completed University of 00:00:00 [facility] [place] [facility] TDAP 2019-02-23 Completed University of 00:00:00 [facility] [place] [facility] TDAP 2019-02-23 Completed University of 00:00:00 [facility] [place] [facility] TDAP 2019-02-23 Completed University of 00:00:00 [facility] Branch TDAP 2019-02-23 Completed University of 00:00:00 [facility] Branch TDAP 2019-02-23 Completed University of 00:00:00 [facility] TDAP 2019-02-23 Completed University of 00:00:00 [facility] TDAP 2019-02-23 Completed University of 00:00:00 [facility] TDAP 2019-02-23 Completed University of 00:00:00 [facility] TDAP 2019-02-23 Completed University of 00:00:00 [facility] TDAP 2019-02-23 Completed University of 00:00:00 [facility] TDAP 2019-02-23 Completed University of 00:00:00 [facility] TDAP 2019-02-23 Completed University of 00:00:00 [facility] TDAP 2019-02-23 Completed University of 00:00:00 [facility] Vital Signs Vital Name Observation Time Observation Value Comments Source HEIGHT 2022-06-14 11:53:00 162.6 cm WEIGHT 2022-06-14 11:53:00 113.399 kg HEIGHT 2022-06-14 11:53:00 162.6 cm WEIGHT 2022-06-14 11:53:00 113.399 kg HEIGHT 2022-06-09 14:04:00 162.6 cm WEIGHT 2022-06-09 14:04:00 104.6 kg HEIGHT 2022-06-09 04:10:00 162.6 cm WEIGHT 2022-06-09 04:10:00 109 kg HEIGHT 2022-06-02 13:45:00 162.6 cm WEIGHT 2022-06-02 13:45:00 107.502 kg HEIGHT 2022-06-09 14:04:00 162.6 cm WEIGHT 2022-06-09 14:04:00 104.6 kg HEIGHT 2022-06-09 04:10:00 162.6 cm WEIGHT 2022-06-09 04:10:00 109 kg HEIGHT 2022-06-02 13:45:00 162.6 cm WEIGHT 2022-06-02 13:45:00 107.502 kg HEIGHT 2021-09-15 23:30:00 162.6 cm WEIGHT 2021-09-15 23:30:00 108.863 kg HEIGHT 2021-09-15 23:30:00 162.6 cm WEIGHT 2021-09-15 23:30:00 108.863 kg Systolic blood 2020-09-29 15:36:00 145 mm[Hg] Univer sity of pressure [facility] Diastolic blood 2020-09-29 15:36:00 99 mm[Hg] Unive rsity of pressure [facility] Heart rate 2020-09-29 15:34:00 82 /min Universi ty of [facility] [place] [facility] Body temperature 2020-09-29 15:34:00 36.89 [place] Univ ersity of [place] [facility] Respiratory rate 2020-09-29 15:34:00 24 /min Univ ersity of [place] [facility] Body height 2020-09-29 15:34:00 162.6 cm Universi ty of [facility] [place] [facility] Body weight 2020-09-29 15:34:00 99.837 kg Universi ty of [facility] [place] [facility] BMI 2020-09-29 15:34:00 37.78 kg/m2 Universi ty of [facility] Systolic blood 2020-09-05 16:21:00 140 mm[Hg] Univer sity of pressure [facility] Diastolic blood 2020-09-05 16:21:00 100 mm[Hg] Unive rsity of pressure [facility] Heart rate 2020-09-05 16:12:00 83 /min Universi ty of [facility] [place] Body temperature 2020-09-05 16:11:00 37.06 [place] Univ ersity of [facility] Respiratory rate 2020-09-05 16:11:00 16 /min Univ ersity of [facility] Body height 2020-09-05 16:11:00 162.6 cm Universi ty of [facility] Body weight 2020-09-05 16:11:00 96.786 kg Universi ty of [facility] BMI 2020-09-05 16:11:00 36.63 kg/m2 Universi ty of [facility] Systolic blood 2020-08-23 01:00:00 139 mm[Hg] Univer sity of pressure [facility] Diastolic blood 2020-08-23 01:00:00 79 mm[Hg] Unive rsity of pressure [facility] Heart rate 2020-08-23 01:00:00 80 /min Universi ty of [facility] Oxygen saturation in 2020-08-23 01:00:00 100 /min University Arterial blood by [facility] Pulse oximetry Branch Body temperature 2020-08-22 23:20:00 36.22 [place] Univ ersity of [facility] Respiratory rate 2020-08-22 23:20:00 17 /min Univ ersity of [facility] Branch Systolic blood 2020-08-22 19:06:00 140 mm[Hg] Univer sity of pressure [facility] Diastolic blood 2020-08-22 19:06:00 86 mm[Hg] Unive rsity of pressure [facility] Heart rate 2020-08-22 18:37:00 85 /min Universi ty of [facility] Body temperature 2020-08-22 18:36:00 35.94 [place] Univ ersity of [facility] Branch Respiratory rate 2020-08-22 18:36:00 16 /min Univ ersity of [facility] Body height 2020-08-22 18:36:00 162.6 cm Universi ty of [facility] Body weight 2020-08-22 18:36:00 105.802 kg Universi ty of [facility] BMI 2020-08-22 18:36:00 40.04 kg/m2 Universi ty of [facility] [place] [facility] Systolic blood 2020-08-17 04:29:00 136 mm[Hg] Univer sity of pressure [facility] Diastolic blood 2020-08-17 04:29:00 86 mm[Hg] Unive rsity of pressure [facility] Heart rate 2020-08-17 04:29:00 108 /min Universi ty of [facility] [place] [facility] Body temperature 2020-08-17 04:29:00 36.89 [place] Univ ersity of [facility] Branch Respiratory rate 2020-08-17 04:29:00 20 /min Univ ersity of [facility] Oxygen saturation in 2020-08-17 04:29:00 96 /min University of Arterial blood by [facility] Pulse oximetry Branch Body height 2020-08-14 19:21:00 162.6 cm Universi ty of [facility] Body weight 2020-08-14 19:21:00 107.956 kg Universi ty of [facility] BMI 2020-08-14 19:21:00 40.85 kg/m2 Universi ty of [facility] Systolic blood 2020-08-15 22:00:00 142 mm[Hg] Univer sity of pressure [facility] Diastolic blood 2020-08-15 22:00:00 89 mm[Hg] [facility] Heart rate 2020-08-15 22:00:00 85 /min [facility] Respiratory rate 2020-08-15 22:00:00 16 /min Univ ersity of [facility] Oxygen saturation in 2020-08-15 22:00:00 99 /min University Arterial blood by [facility] Pulse oximetry Branch Body temperature 2020-08-15 20:35:00 36.44 Michell [facility] Body height 2020-08-14 19:21:00 162.6 cm [facility] Body weight 2020-08-14 19:21:00 107.956 kg [facility] BMI 2020-08-14 19:21:00 40.85 kg/m2 [facility] Systolic blood 2020-08-14 15:52:00 146 mm[Hg] [facility] Diastolic blood 2020-08-14 15:52:00 92 mm[Hg] [facility] Heart rate 2020-08-14 15:51:00 104 /min [facility] Body temperature 2020-08-14 15:51:00 37.06 Michell [facility] Respiratory rate 2020-08-14 15:51:00 16 /min [facility] Body height 2020-08-14 15:51:00 162.6 cm [facility] Body weight 2020-08-14 15:51:00 108.954 kg [facility] BMI 2020-08-14 15:51:00 41.23 kg/m2 [facility] Systolic blood 2020-07-31 19:24:00 135 mm[Hg] [facility] Diastolic blood 2020-07-31 19:24:00 90 mm[Hg] [facility] Heart rate 2020-07-31 19:13:00 92 /min [facility] Body temperature 2020-07-31 19:12:00 37 Michell [facility] Respiratory rate 2020-07-31 19:12:00 16 /min [facility] Body height 2020-07-31 19:12:00 162.6 cm [facility] Body weight 2020-07-31 19:12:00 107.049 kg [facility] BMI 2020-07-31 19:12:00 40.51 kg/m2 [facility] Systolic blood 2020-07-17 16:43:00 124 mm[Hg] [facility] Diastolic blood 2020-07-17 16:43:00 86 mm[Hg] [facility] Body temperature 2020-07-17 16:22:00 37.39 Michell [facility] Respiratory rate 2020-07-17 16:22:00 16 /min [facility] Body height 2020-07-17 16:22:00 162.6 cm [facility] Body weight 2020-07-17 16:22:00 108.183 kg [facility] BMI 2020-07-17 16:22:00 40.94 kg/m2 [facility] Systolic blood 2020-07-03 22:23:00 127 mm[Hg] [facility] Diastolic blood 2020-07-03 22:23:00 70 mm[Hg] [facility] Heart rate 2020-07-03 22:23:00 109 /min [facility] Respiratory rate 2020-07-03 22:23:00 17 /min [facility] Oxygen saturation in 2020-07-03 22:23:00 100 /min [facility] of Arterial blood by [employer] Pulse oximetry Branch Body temperature 2020-07-03 21:45:00 35.83 Michell [facility] Systolic blood 2020-07-03 22:23:00 127 mm[Hg] [facility] Diastolic blood 2020-07-03 22:23:00 70 mm[Hg] [facility] Heart rate 2020-07-03 22:23:00 109 /min [facility] Respiratory rate 2020-07-03 22:23:00 17 /min [facility] Oxygen saturation in 2020-07-03 22:23:00 100 /min [facility] Body temperature 2020-07-03 21:45:00 35.83 Michell [facility] Systolic blood 2020-06-28 01:30:00 126 mm[Hg] [facility] Diastolic blood 2020-06-28 01:30:00 71 mm[Hg] [facility] Heart rate 2020-06-28 01:30:00 98 /min [facility] Oxygen saturation in 2020-06-28 00:30:00 100 /min [facility] Arterial blood by [facility] Pulse oximetry Branch Body temperature 2020-06-28 00:13:00 36.89 Michell [facility] Respiratory rate 2020-06-28 00:13:00 20 /min [facility] Body height 2020-06-28 00:13:00 162.6 cm [facility] Body weight 2020-06-28 00:13:00 101.606 kg [facility] BMI 2020-06-28 00:13:00 38.45 kg/m2 [facility] Systolic blood 2020-06-28 01:30:00 126 mm[Hg] [facility] Diastolic blood 2020-06-28 01:30:00 71 mm[Hg] [facility] Heart rate 2020-06-28 01:30:00 98 /min [facility] Oxygen saturation in 2020-06-28 00:30:00 100 /min [facility] Arterial blood by [facility] Pulse oximetry Branch Body temperature 2020-06-28 00:13:00 36.89 Michell [facility] Respiratory rate 2020-06-28 00:13:00 20 /min [facility] Body height 2020-06-28 00:13:00 162.6 cm [facility] Body weight 2020-06-28 00:13:00 101.606 kg [facility] BMI 2020-06-28 00:13:00 38.45 kg/m2 [facility] Systolic blood 2020-06-26 14:20:00 128 mm[Hg] [facility] Diastolic blood 2020-06-26 14:20:00 82 mm[Hg] [facility] Heart rate 2020-06-26 14:20:00 106 /min [facility] Body temperature 2020-06-26 14:20:00 37.06 Michell [facility] Respiratory rate 2020-06-26 14:20:00 16 /min [facility] Body height 2020-06-26 14:20:00 162.6 cm [facility] Body weight 2020-06-26 14:20:00 107.049 kg [facility] BMI 2020-06-26 14:20:00 40.51 kg/m2 [facility] Systolic blood 2020-06-26 14:20:00 128 mm[Hg] [facility] Diastolic blood 2020-06-26 14:20:00 82 mm[Hg] [facility] Heart rate 2020-06-26 14:20:00 106 /min [facility] Body temperature 2020-06-26 14:20:00 37.06 Michell [facility] Respiratory rate 2020-06-26 14:20:00 16 /min [facility] Body height 2020-06-26 14:20:00 162.6 cm [facility] Body weight 2020-06-26 14:20:00 107.049 kg [facility] BMI 2020-06-26 14:20:00 40.51 kg/m2 [facility] Systolic blood 2020-06-19 22:28:00 140 mm[Hg] [facility] Diastolic blood 2020-06-19 22:28:00 84 mm[Hg] [facility] Heart rate 2020-06-19 22:18:00 109 /min [facility] Body temperature 2020-06-19 22:18:00 37.11 Michell [facility] Respiratory rate 2020-06-19 22:18:00 16 /min [facility] Body height 2020-06-19 22:18:00 162.6 cm [facility] Body weight 2020-06-19 22:18:00 107.616 kg [facility] BMI 2020-06-19 22:18:00 40.72 kg/m2 [facility] Systolic blood 2020-06-19 22:28:00 140 mm[Hg] [facility] Diastolic blood 2020-06-19 22:28:00 84 mm[Hg] [facility] Heart rate 2020-06-19 22:18:00 109 /min [facility] Body temperature 2020-06-19 22:18:00 37.11 Michell [facility] Respiratory rate 2020-06-19 22:18:00 16 /min [facility] Body height 2020-06-19 22:18:00 162.6 cm [facility] Body weight 2020-06-19 22:18:00 107.616 kg [facility] BMI 2020-06-19 22:18:00 40.72 kg/m2 [facility] Systolic blood 2020-06-05 22:30:00 128 mm[Hg] [facility] Diastolic blood 2020-06-05 22:30:00 60 mm[Hg] [facility] Heart rate 2020-06-05 22:18:00 107 /min [facility] Body temperature 2020-06-05 22:18:00 37.11 Michell [facility] Respiratory rate 2020-06-05 22:18:00 16 /min [facility] Body height 2020-06-05 22:18:00 162.6 cm [facility] Body weight 2020-06-05 22:18:00 106.397 kg [facility] BMI 2020-06-05 22:18:00 40.26 kg/m2 [facility] Systolic blood 2020-06-05 22:30:00 128 mm[Hg] [facility] Diastolic blood 2020-06-05 22:30:00 60 mm[Hg] [facility] Heart rate 2020-06-05 22:18:00 107 /min [facility] Body temperature 2020-06-05 22:18:00 37.11 Michell [facility] Respiratory rate 2020-06-05 22:18:00 16 /min [facility] Body height 2020-06-05 22:18:00 162.6 cm [facility] Body weight 2020-06-05 22:18:00 106.397 kg [facility] BMI 2020-06-05 22:18:00 40.26 kg/m2 [facility] Systolic blood 2020-05-30 20:00:00 125 mm[Hg] [facility] Diastolic blood 2020-05-30 20:00:00 68 mm[Hg] [facility] Heart rate 2020-05-30 20:00:00 87 /min [facility] Respiratory rate 2020-05-30 20:00:00 23 /min [facility] Oxygen saturation in 2020-05-30 20:00:00 98 /min [facility] [place] [facility] Body temperature 2020-05-30 17:55:00 36.94 Michell [facility] Body weight 2020-05-30 17:55:00 105.325 kg [facility] BMI 2020-05-30 17:55:00 39.86 kg/m2 [facility] Systolic blood 2020-05-30 20:00:00 125 mm[Hg] [facility] Diastolic blood 2020-05-30 20:00:00 68 mm[Hg] [facility] Heart rate 2020-05-30 20:00:00 87 /min [facility] Respiratory rate 2020-05-30 20:00:00 23 /min [facility] Oxygen saturation in 2020-05-30 20:00:00 98 /min [facility] Arterial blood by [employer] Pulse oximetry Branch Body temperature 2020-05-30 17:55:00 36.94 Michell [facility] [place] Body weight 2020-05-30 17:55:00 105.325 kg [facility] BMI 2020-05-30 17:55:00 39.86 kg/m2 [facility] Systolic blood 2020-05-21 18:57:00 131 mm[Hg] [facility]iver [facility]ity of [facility] Diastolic blood 2020-05-21 18:57:00 80 mm[Hg] [facility]ive [facility]ity of pressure [facility] Heart rate 2020-05-21 18:57:00 96 /min [facility] Body temperature 2020-05-21 18:57:00 36.94 Michell [facility] Respiratory rate 2020-05-21 18:57:00 16 /min [facility] Body height 2020-05-21 18:57:00 162.6 cm [facility] Body weight 2020-05-21 18:57:00 104.441 kg [facility] BMI 2020-05-21 18:57:00 39.52 kg/m2 [facility] Systolic blood 2020-04-23 22:11:00 139 mm[Hg] [facility]ity [facility] Diastolic blood 2020-04-23 22:11:00 75 mm[Hg] Unive rsity of pressure [facility] Heart rate 2020-04-23 22:11:00 95 /min [facility] [place] Body temperature 2020-04-23 22:11:00 37.06 Michell [facility] Respiratory rate 2020-04-23 22:11:00 16 /min [facility] Body height 2020-04-23 22:11:00 162.6 cm [facility] Body weight 2020-04-23 22:11:00 104.015 kg [facility] BMI 2020-04-23 22:11:00 39.36 kg/m2 [facility] Systolic blood 2020-03-24 17:05:00 139 mm[Hg] [facility] Diastolic blood 2020-03-24 17:05:00 84 mm[Hg] [facility] Heart rate 2020-03-24 17:05:00 101 /min [facility] Body temperature 2020-03-24 17:05:00 37.39 Michell [facility] Respiratory rate 2020-03-24 17:05:00 16 /min [facility] Body height 2020-03-24 17:05:00 162.6 cm [facility] Body weight 2020-03-24 17:05:00 102.229 kg [facility] BMI 2020-03-24 17:05:00 38.69 kg/m2 [facility] Systolic blood 2020-02-25 15:57:00 128 mm[Hg] [facility] Diastolic blood 2020-02-25 15:57:00 86 mm[Hg] [facility] Heart rate 2020-02-25 15:57:00 94 /min [facility] Body temperature 2020-02-25 15:57:00 37.44 Michell [facility] Respiratory rate 2020-02-25 15:57:00 16 /min [facility] Body height 2020-02-25 15:57:00 162.6 cm [facility] Body weight 2020-02-25 15:57:00 101.294 kg [facility] BMI 2020-02-25 15:57:00 38.33 kg/m2 [facility] Systolic blood 2020-02-18 13:58:00 134 mm[Hg] [facility] Diastolic blood 2020-02-18 13:58:00 84 mm[Hg] [facility] Heart rate 2020-02-18 13:58:00 98 /min [facility] Body temperature 2020-02-18 13:58:00 37.67 Michell [facility] Respiratory rate 2020-02-18 13:58:00 16 /min [facility] Body height 2020-02-18 13:58:00 162.6 cm [facility] Body weight 2020-02-18 13:58:00 101.606 kg [facility] BMI 2020-02-18 13:58:00 38.45 kg/m2 [facility] Systolic blood 2020-01-24 19:38:00 131 mm[Hg] [facility] Diastolic blood 2020-01-24 19:38:00 82 mm[Hg] [facility] Heart rate 2020-01-24 19:38:00 88 /min [facility] Body temperature 2020-01-24 19:38:00 37.61 Michell [facility] Respiratory rate 2020-01-24 19:38:00 16 /min [facility] Body height 2020-01-24 19:38:00 162.6 cm [facility] Body weight 2020-01-24 19:38:00 101.861 kg [facility] BMI 2020-01-24 19:38:00 38.55 kg/m2 [facility] Systolic blood 2019-12-18 14:00:00 124 mm[Hg] [facility] Diastolic blood 2019-12-18 14:00:00 84 mm[Hg] [facility] Heart rate 2019-12-18 14:00:00 82 /min [facility] Body temperature 2019-12-18 14:00:00 37.17 Michell [facility] Respiratory rate 2019-12-18 14:00:00 16 /min [facility] Body height 2019-12-18 14:00:00 162.6 cm [facility] Body weight 2019-12-18 14:00:00 102.57 kg [facility] BMI 2019-12-18 14:00:00 38.81 kg/m2 [facility] Systolic blood 2019-06-11 22:23:00 136 mm[Hg] [facility] Diastolic blood 2019-06-11 22:23:00 87 mm[Hg] [facility] Heart rate 2019-06-11 22:23:00 97 /min [facility] Body temperature 2019-06-11 22:23:00 37.44 Michell [facility] Respiratory rate 2019-06-11 22:23:00 16 /min [facility] Body height 2019-06-11 22:23:00 162.6 cm [facility] Body weight 2019-06-11 22:23:00 99.933 kg [facility] BMI 2019-06-11 22:23:00 37.82 kg/m2 [facility] Systolic blood 2019-01-05 16:25:00 126 mm[Hg] [facility] Diastolic blood 2019-01-05 16:25:00 80 mm[Hg] [facility] of [facility] Heart rate 2019-01-05 16:25:00 84 /min [facility] Body temperature 2019-01-05 16:25:00 37.06 Michell [facility] Respiratory rate 2019-01-05 16:25:00 18 /min [facility] Body height 2019-01-05 16:25:00 162.6 cm [facility] Body weight 2019-01-05 16:25:00 102.683 kg [facility] BMI 2019-01-05 16:25:00 38.86 kg/m2 [facility] Systolic blood 2019-01-02 15:11:00 130 mm[Hg] [facility] Diastolic blood 2019-01-02 15:11:00 79 mm[Hg] [facility] Body temperature 2019-01-02 15:11:00 37.72 Michell [facility] Body height 2019-01-02 15:11:00 162.6 cm [facility] Body weight 2019-01-02 15:11:00 102.967 kg [facility] BMI 2019-01-02 15:11:00 38.96 kg/m2 [facility] Systolic blood 2018-12-22 19:41:00 135 mm[Hg] [facility] Diastolic blood 2018-12-22 19:41:00 81 mm[Hg] [facility] of [facility] Heart rate 2018-12-22 19:38:00 99 /min [facility] Body temperature 2018-12-22 19:38:00 36.28 Michell [facility] Respiratory rate 2018-12-22 19:38:00 16 /min [facility] Body height 2018-12-22 19:38:00 162.6 cm [facility] Body weight 2018-12-22 19:38:00 102.513 kg [facility] BMI 2018-12-22 19:38:00 38.79 kg/m2 [facility] Heart rate 2022-06-14 21:15:00 96 /min [facility] Body temperature 2022-06-14 21:15:00 37.06 Michell [facility] Oxygen saturation in 2022-06-14 21:15:00 96 /min [facility] Arterial blood by [facility] Pulse oximetry Systolic blood 2022-06-14 21:00:00 116 mm[Hg] [facility] Diastolic blood 2022-06-14 21:00:00 74 mm[Hg] [facility] Respiratory rate 2022-06-14 19:23:00 18 /min [facility] Body height 2022-06-14 11:53:00 162.6 cm [facility] Body weight 2022-06-14 11:53:00 113.399 kg [facility] BMI 2022-06-14 11:53:00 42.91 kg/m2 [facility] Systolic blood 2022-06-09 05:00:00 119 mm[Hg] [facility] Diastolic blood 2022-06-09 05:00:00 76 mm[Hg] [facility] Heart rate 2022-06-09 05:00:00 82 /min [facility] Body temperature 2022-06-09 05:00:00 36.06 Michell [facility] Respiratory rate 2022-06-09 05:00:00 18 /min [facility] Oxygen saturation in 2022-06-09 05:00:00 100 /min [facility] Arterial blood by [facility] Pulse oximetry Body height 2022-06-09 04:10:00 162.6 cm [facility] Body weight 2022-06-09 04:10:00 109 kg [facility] BMI 2022-06-09 04:10:00 41.23 kg/m2 [facility] Body height 2022-06-02 13:45:00 162.6 cm [facility] Body weight 2022-06-02 13:45:00 107.502 kg [facility] BMI 2022-06-02 13:45:00 40.68 kg/m2 [facility] Systolic blood 2021-09-18 11:27:00 129 mm[Hg] [facility] Diastolic blood 2021-09-18 11:27:00 69 mm[Hg] [facility] Heart rate 2021-09-18 11:27:00 83 /min [facility] Body temperature 2021-09-18 11:27:00 36.5 Michell [facility] Respiratory rate 2021-09-18 11:27:00 17 /min [facility] Oxygen saturation in 2021-09-18 11:27:00 98 /min [facility] Arterial blood by [facility] Pulse oximetry Body height 2021-09-15 23:30:00 162.6 cm [facility] Body weight 2021-09-15 23:30:00 108.863 kg [facility] BMI 2021-09-15 23:30:00 41.20 kg/m2 [facility] Procedures Procedure Date / Time Performing Clinician Source Performed CT BRAIN WITHOUT IV 2022-06-14 14:51:00 Kika [facility] CONTRAST [place] CBC W/PLT COUNT & AUTO 2022-06-14 [facility] 2022-06-14 12:51:00 [facility] PANEL [place] PROTHROMBIN TIME/INR 2022-06-14 12:51:00 [facility] HCG, QUANTITATIVE, 2022-06-14 12:51:00 Kika [facility] CBC W/PLT COUNT & AUTO 2022-06-14 12:51:00 [facility] DIFFERENTIAL Center FERRITIN 2022-06-11 05:20:00 [facility] IRON, TIBC, % SAT. 2022-06-11 05:20:00 [facility] (WITHOUT FERRITIN) [place] BASIC METABOLIC PANEL 2022-06-10 03:06:00 Zaina Nettles I [facility] MAGNESIUM 2022-06-10 03:06:00 [facility] 2022-06-10 03:06:00 Nettles [facility] CBC (HEMOGRAM ONLY) 2022-06-10 03:06:00 Nettles [facility] CT BRAIN WITHOUT IV 2022-06-09 22:01[facility] PR[facility]OMBIN [facility]/INR 2022-06-09 20:49:00 [facility] APTT 2022-06-09 20:49:00 [facility] BLOOD GAS, ARTERIAL 2022-06-09 20:47:00 [facility] CBC (HEMOGRAM ONLY) 2022-06-09 20:45:00 [facility] COMPREHENSIVE METABOLIC 2022-06-09 20:45:00 [place] [facility] PANEL Center MAGNESIUM 2022-06-09 20:45:00 [facility] PHOSPHORUS 2022-06-09 20:45:00 [facility] TISSUE EXAM 2022-06-09 12:39:00 Pauline Cloud [facility] RRL CRITICAL LABS 2022-06-09 11:00:41 Jimy Ortega [facility] (ABG,NA,K,H&H,GLUCOSE) [facility] BLOOD GAS, ARTERIAL 2022-06-09 11:00:41 [facility] SODIUM NA-STAT LAB 2022-06-09 [facility]22-[facility]09 [facility] 2022-06-09 [facility]:00[facility] LAB 2022-06-09 11:00[facility] 2022-06-09 09:05:00 [facility] INTRACRANIAL AV [place] MALFORMATION LIGATION PROCEDURE, USING FRAMELESS 2022-06-09 09:05:00 [facility] Center PROCEDURE, USING OPERATING 2022-06-09 09:05:00 Pauline Cloud [facility] NEUROPHYSIOLOGIC 2022-06-09 09:05:00 Ai [facility] MONITORING, INTRAOPERATIVE Cente r CRANIOTOMY, WITH 2022-06-09 08:00:00 Ai [facility] INTRACRANIAL AV [place] MALFORMATION LIGATION PROCEDURE, USING FRAMELESS 2022-06-09 08:00:00 [facility], USING OPERATING 2022-06-09 08:00:00 Pauline Cloud [facility] NEUROPHYSIOLOGIC 2022-06-09 08:00:00 Ai Pauline [facility] MONITORING, INTRAOPERATIVE Cente r ECG 12-LEAD 2022-06-09 03:06:28 Yanet Luu [facility] ECG 12-LEAD 2022-06-09 03:06:28 Unknown, [facility] ECG 12-LEAD 2022-06-09 03:06:07 Unknown, [facility] XR CHEST 1 VIEW PORTABLE / 2022-06-09 02:00:00 Yanet Luu [facility] SARS-COV2/RT-PCR ([facility] & 2022-06-09 01:50:00 NettlesZaina mathewabel [facility] REF LABS) Center SCREEN, URINE 2022-06-08 23:59:00 Yanet Luu [facility] MR BRAIN WITH & WITHOUT IV 2022-06-08 23:06:00 [facility] CBC W/PLT COUNT & AUTO 2022-06-08 21:24:00 [facility] BASIC METABOLIC PANEL 2022-06-08 21:24:00 [facility] PT/APTT 2022-06-08 21:24:00 [facility] TYPE AND SCREEN, AUTOMATED 2022-06-08 21:24:00 Pauline Cloud [facility] CBC W/PLT COUNT & AUTO 2022-06-08 21:24:00 [facility] POCT-GLUCOSE METER 2021-09-17 12:20:00 Debbie López [facility] MR BRAIN WITH & WITHOUT IV 2021-09-16 13:58:00 Cathy [facility] POCT-GLUCOSE METER 2021-09-16 11:35:00 Andres Mcgarry [facility] POCT-GLUCOSE METER 2021-09-16 11:10:00 [facility] [place] CTA BRAIN 2021-09-16 04:10:00 Matias Huffman [facility] MAGNESIUM 2021-09-16 01:12:00 Opal Mercado [place] [facility] BASIC METABOLIC PANEL 2021-09-16 01:12:00 Opal Mercado [facility] CBC W/PLT COUNT & AUTO 2021-09-16 01:12:00 [facility] HEPATIC FUNCTION PANEL 2021-09-16 01:12:00 [facility] [place] [facility] CBC W/PLT COUNT & AUTO 2021-09-16 01:12:00 Opal Mercado [facility] CBC WITH DIFF 2020-09-29 16:12:00 Amos Car [facility] POCT URINALYSIS 2020-09-05 16:13:00 Amos Car [facility] URINALYSIS 2020-08-23 00:50:00 Vu, [facility] PROTEIN CREAT RATIO URINE 2020-08-23 00:50:00 [facility] ([facility] AMINO 2020-08-22 23:44:00 Vu, [facility] TRANSFER) Medical Branch CREATININE 2020-08-22 23:44:00 Vu, [facility] ALANINE AMINO 2020-08-22 23:44:00 Vu, [facility] TRANSFERASE(SGPT [facility] [place] LACTATE DEHYDROGENASE 2020-08-22 23:44:00 Vu, [facility] URIC ACID 2020-08-22 23:44:00 Vu, [facility] CBC WITH DIFF 2020-08-22 23:44:00 Vu, [facility] COVID-19 (ID NOW RAPID 2020-08-22 23:07:00 Donald Sweet [facility] TESTING) [facility] POCT URINALYSIS 2020-08-22 18:56:00 Amos Car [facility] CBC WITH DIFF 2020-08-16 10:40:00 Maryann Conroy [facility] CBC WITH DIFF 2020-08-16 10:40:00 Maryann Conroy [facility] SECTION 2020-08-15 19:11:00 Antonieta Ochoa [facility] CENTRAL NEURAXIAL BLOCK 2020-08-15 02:09:12 Reynaldo Jennings [facility] SGOT (ASPARTATE AMINO 2020-08-14 21:23:00 Mary Alcaraz [facility] TRANSFER) Medical Branch CREATININE 2020-08-14 21:23:00 Mary Alcaraz [facility] ALANINE AMINO 2020-08-14 21:23:00 Mary Alcaraz [facility] TRANSFERASE([facility] Medical Branch LACTATE DEHYDROGENASE 2020-08-14 21:23:00 [facility] URIC ACID 2020-08-14 21:23:00 Mary Alcaraz [facility] CBC WITH DIFF 2020-08-14 21:23:00 Mary Alcaraz [facility] URINALYSIS 2020-08-14 21:23:00 Mary Alcaraz [facility] HEPATITIS B SURFACE 2020-08-14 21:23:00 Mary Alcaraz [facility] PROTEIN CREAT RATIO URINE 2020-08-14 21:23:00 Mary Alcaraz [facility] GALV ONLY - SYPHILIS 2020-08-14 21:23:00 Mary Alcaraz [facility] IGG/IGM [facility] SGOT (ASPARTATE AMINO 2020-08-14 21:23:00 Mary Alcaraz [facility]) Medical Branch CREATININE 2020-08-14 21:23:00 Mary Alcaraz [facility] ALANINE AMINO 2020-08-14 21:23:00 Mary Alcaraz [facility] TRANSFERASE([facility] Medical Branch LACTATE DEHYDROGENASE 2020-08-14 21:23:00 Mary Alcaraz [facility] URIC ACID 2020-08-14 21:23:00 Mary Alcaraz [facility] CBC WITH DIFF 2020-08-14 21:23:00 Mary Alcaraz [facility] URINALYSIS 2020-08-14 21:23:00 Mary Alcaraz [facility] HEPATITIS B SURFACE 2020-08-14 21:23:00 Mary Alcaraz [facility] PROTEIN CREAT RATIO URINE 2020-08-14 21:23:00 Mary Alcaraz [facility] GALV ONLY - SYPHILIS 2020-08-14 21:23:00 Mary [facility]caraz [facility] IGG/IGM Medical Branch HB ABO GROUPING 2020-08-14 20:59:00 Mary Alcaraz [facility] RHO (D) IMMUNE GLOBULIN 2020-08-14 20:59:00 Maryann Conroy [facility] HB ABO GROUPING 2020-08-14 20:59:00 Mary Alcaraz [facility] RHO (D) IMMUNE GLOBULIN 2020-08-14 20:59:00 Maryann Conroy [facility] COVID-19 (ID NOW RAPID 2020-08-14 19:30:00 Jenny Gordon [facility] TESTING) Medical Branch LAB ONLY COVID 2020-08-14 19:30:00 [facility] INTERPRETATION [facility] COVID-19 (ID NOW RAPID 2020-08-14 19:30:00 Jenny Gordon [facility] TESTING) Medical Branch LAB ONLY COVID 2020-08-14 19:30:00 [facility] INTERPRETATION [facility] POCT URINALYSIS 2020-08-14 15:53:00 Amos Car [facility] NOTICE OF RESEARCH 2020-08-14 05:01:00 Doctor Octavio [facility] PARTICIPATION [place] [facility] POCT URINALYSIS 2020-07-31 19:15:00 Amos Car [facility] POCT URINALYSIS 2020-07-17 16:27:00 Amos Car [facility] URINALYSIS 2020-07-03 22:19:00 [facility] COVID-19 (ID NOW RAPID 2020-07-03 21:32:00 Olya Rodriguez [facility] TESTING) Medical Branch CONSENT/REFUSAL FOR 2020-07-03 06:01:00 Doctor Octavio [facility] DIAGNOSIS AND TREATMENT [place] [facility] [place] CONSENT/REFUSAL FOR 2020-07-03 06:01:00 Doctor Octavio [facility] DIAGNOSIS AND TREATMENT [place] [facility] [place] DME/SUPPLY JUSTIFICATION 2020-07-02 06:01:00 Doctor Octavio, [facility] [place] ADC ONLY - FERN TEST 2020-06-28 01:09:00 Ava Blum [facility] COVID-19 (ID NOW RAPID 2020-06-28 01:09:00 Ava Blum [facility] TESTING) [facility] [place] ASSIGNMENT OF BENEFITS 2020-06-27 23:54:34 Doctor Unassigned, [facility] NOTICE OF PRIVACY 2020-06-27 23:54:17 Doctor Unassigned, [facility] PRACTICES [facility] POCT URINALYSIS 2020-06-26 14:30:00 Amos Car [facility] DME/SUPPLY JUSTIFICATION 2020-06-26 06:01:00 Doctor Unasskwan, [facility] Name [facility] POCT URINALYSIS 2020-06-19 22:23:00 Amos Car [facility] POCT URINALYSIS 2020-06-19 22:22:00 Amos Car [facility] TDAP VACCINE, >11 YRS, IM 2020-06-19 22:21:22 Amos Car [facility] POCT URINALYSIS 2020-06-05 22:22:00 Amos Car [facility] LIPASE 2020-05-30 18:19:00 Karin Joshua [facility] TROPONIN I 2020-05-30 18:19:00 Karin Joshua [facility] HEPATIC FUNCTION PANEL 2020-05-30 18:19:00 Karin Joshua [facility] ([id number]) (ALB,T.PRO,BILI [facility] [place] T,BU/BC,ALT,AST,ALK PHOS) BASIC METABOLIC PANEL (NA, 2020-05-30 18:19:00 Karin Joshua [facility] K, CL, CO2, GLUCOSE, BUN, Medica l Branch CREATININE, CA) CBC WITH DIFF 2020-05-30 18:19:00 Karin Joshua [facility] D-DIMER 2020-05-30 18:19:00 Karin Joshua [facility] URINALYSIS 2020-05-30 18:19:00 Karin Joshua [facility] N-TERMINAL PRO-BNP 2020-05-30 18:19:00 Karin [facility] COVID-19 (ID NOW RAPID 2020-05-30 18:19:00 Karin Joshua [facility] TESTING) [facility] POCT URINALYSIS 2020-05-21 20:24:00 Amos Car [facility] POCT URINALYSIS 2020-04-23 22:14:00 Amos Car [facility] SECOND AND THIRD TRIMESTER 2020-04-15 15:28:00 Stefania Car [facility] ULTRASOUND [facility] POCT URINALYSIS 2020-03-24 17:06:00 Amos Car [facility] POCT URINALYSIS 2020-02-25 16:44:00 Amos Car [facility] FLU VACC ([id number]), 6+ 2020-01-24 19:45:20 Amos Car [facility] MONTHS, IM, QUAD [facility] POCT URINALYSIS W/O 2020-01-24 19:26:00 [facility] SPECIFIC GRAVITY [facility] POCT TEST 2020-01-24 19:25:00 Amos Car Uni [facility] REPORT OF 2020-01-24 05:01:00 Doctor Unassigned, Unive [facility] [place] [facility] ASSIGNMENT OF BENEFITS 2019-12-18 13:46:27 [facility] [place] [facility] TOTAL BETA HCG ASSAY 2019-06-21 17:04:00 Rodrigue Rodriguez [facility] TOTAL BETA HCG ASSAY 2019-06-11 23:01:00 [facility] WITH DIFFERENTIAL 2019-06-11 23:01:00 [facility] 2019-06-11 22:47:00 [facility]os [facility] IMM[facility]AC2 CONSENT 2019-06-11 06:01:00 Doctor Unassigned, [facility] [place] [facility] Branch DISCLOSURE AND CONSENT, 2019-01-02 05:01:00 Doctor Unassigned, U [facility] MEDICAL AND SURGICAL [place] Medical Bra nch PROCEDURES FIRST TRIMESTER ULTRASOUND 2019-01-01 20:55:00 Rodrigue Rodriguez [facility] POCT TEST 2018-12-22 19:41:00 Rodrigue Rodriguez [facility] POCT GLUCOSE(AGE >30DAYS) 2018-12-22 19:41:00 Rodrigue Rodriguez [facility] POCT URINALYSIS W/O 2018-12-22 19:35:00 Rodrigue Rodriguez [facility] SPECIFIC GRAVITY [facility] ASSIGNMENT OF BENEFITS 2018-12-22 18:55:53 Doctor Unassigned, Un [facility] [place] [facility] [place] Plan of Care Planned Activity Planned Date Details Comments Source Future Scheduled 2030-06-19 DTAP/TDAP/TD VACCINES [facility]00 (3 - Td or Tdap) [code Medic al Center = DTAP/TDAP/TD VACCINES (3 - Td or Tdap)] Future Scheduled 2030-06-19 DTAP/TDAP/TD VACCINES [facility] 00:00:00 (3 - Td or Tdap) [code Medic al Center = DTAP/TDAP/TD VACCINES (3 - Td or Tdap)] Future Scheduled 2030-06-19 DTAP/TDAP/TD VACCINES [facility] 00:00:00 (3 - Td or Tdap) [code Medic al Center = DTAP/TDAP/TD VACCINES (3 - Td or Tdap)] Future Scheduled 2030-06-19 DTAP/TDAP/TD VACCINES [facility] 00:00:00 (3 - Td or Tdap) [code Medic al Center = DTAP/TDAP/TD VACCINES (3 - Td or Tdap)] Future Scheduled 2030-06-19 DTAP/TDAP/TD VACCINES [facility] 00:00:00 (3 - Td or Tdap) [code Medic al Center = DTAP/TDAP/TD VACCINES (3 - Td or Tdap)] Future Scheduled 2030-06-19 DTAP/TDAP/TD VACCINES [facility] 00:00:00 (3 - Td or Tdap) [code Medic al Center = DTAP/TDAP/TD VACCINES (3 - Td or Tdap)] Future Scheduled 2030-06-19 DTAP/TDAP/TD VACCINES [facility] 00:00:00 (3 - Td or Tdap) [code Medic al Center = DTAP/TDAP/TD VACCINES (3 - Td or Tdap)] Future Scheduled 2030-06-19 DTAP/TDAP/TD VACCINES [facility] 00:00:00 (3 - Td or Tdap) [code Medic al Center = DTAP/TDAP/TD VACCINES (3 - Td or Tdap)] Future Scheduled 2030-06-19 DTAP/TDAP/TD VACCINES [facility] 00:00:00 (3 - Td or Tdap) [code Medic al Center = DTAP/TDAP/TD VACCINES (3 - Td or Tdap)] Future Scheduled 2030-06-19 DTAP/TDAP/TD VACCINES [facility] 00:00:00 (3 - Td or Tdap) [code Medic al Center = DTAP/TDAP/TD VACCINES (3 - Td or Tdap)] Future Scheduled 2030-06-19 DTAP/TDAP/TD VACCINES [facility] 00:00:00 (3 - Td or Tdap) [code Medic al Center = DTAP/TDAP/TD VACCINES (3 - Td or Tdap)] Future Scheduled 2030-06-19 DTAP/TDAP/TD VACCINES [facility] 00:00:00 (3 - Td or Tdap) [code Medic al Center = DTAP/TDAP/TD VACCINES (3 - Td or Tdap)] Future Scheduled 2030-06-19 DTAP/TDAP/TD VACCINES [facility] 00:00:00 (3 - Td or Tdap) [code Medic al Center = DTAP/TDAP/TD VACCINES (3 - Td or Tdap)] Future Scheduled 2023-06-[address] [facility] 00:00:00 Counseling and Medical Cente r Screening (12+) [code = Tobacco Cessation Counseling and Screening (12+)] Future Scheduled 2023-06-[address] [facility] 00:00:00 Counseling and Medical Cente r Screening (12+) [code = Tobacco Cessation Counseling and Screening (12+)] Future Scheduled 2023-06-[address] [facility] 00:00:00 Counseling and Medical Cente r Screening (12+) [code = Tobacco Cessation Counseling and Screening (12+)] Future Scheduled 2023-06-[address] [facility] 00:00:00 Counseling and Medical Cente r Screening (12+) [code = Tobacco Cessation Counseling and Screening (12+)] Future Scheduled 2023-06-[address] [facility] 00:00:00 Counseling and Medical Cente r Screening (12+) [code = Tobacco Cessation Counseling and Screening (12+)] Future Scheduled 2023-06-[address] [facility] 00:00:00 Counseling and Medical Cente r Screening (12+) [code = Tobacco Cessation Counseling and Screening (12+)] Future Scheduled 2022-09-[address] [facility] 00:00:00 Counseling and Medical Cente r Screening (12+) [code = Tobacco Cessation Counseling and Screening (12+)] Future Scheduled 2022-09-[address] [facility] 00:00:00 Counseling and Medical Cente r Screening (12+) [code = Tobacco Cessation Counseling and Screening (12+)] Future Scheduled 2022-09-[address] [facility] 00:00:00 Counseling and Medical Cente r Screening (12+) [code = Tobacco Cessation Counseling and Screening (12+)] Future Scheduled 2022-09-[address] [facility] 00:00:00 Counseling and Medical Cente r Screening (12+) [code = Tobacco Cessation Counseling and Screening (12+)] Future Scheduled 2022-09-[address] [facility] 00:00:00 Counseling and Medical Cente r Screening (12+) [code = Tobacco Cessation Counseling and Screening (12+)] Future Scheduled 2022-09-[address] [facility] 00:00:00 Counseling and Medical Cente r Screening (12+) [code = Tobacco Cessation Counseling and Screening (12+)] Future Scheduled 2022-09-[address] [facility] 00:00:00 Counseling and Medical Cente r Screening (12+) [code = Tobacco Cessation Counseling and Screening (12+)] Future Scheduled 2022-04-[address] [facility] 00:00:00 (12+) [code = Medical Center DEPRESSION SCREENING (12+)] Future Scheduled 2022-04-[address] [facility] 00:00:00 (12+) [code = Medical Center DEPRESSION SCREENING (12+)] Future Scheduled 2022-04-[address] [facility] 00:00:00 (12+) [code = Medical Center DEPRESSION SCREENING (12+)] Future Scheduled 2022-04-[address] [facility] 00:00:00 (12+) [code = Medical Center DEPRESSION SCREENING (12+)] Future Scheduled 2022-04-[address] [facility] 00:00:00 (12+) [code = Medical Center DEPRESSION SCREENING (12+)] Future Scheduled 2022-04-[address] [facility] 00:00:00 (12+) [code = Medical Center DEPRESSION SCREENING (12+)] Future Scheduled 2022-04-[address] [facility] 00:00:00 (12+) [code = Medical Center DEPRESSION SCREENING (12+)] Future Scheduled 2021-12-24 INFLUENZA VACCINE (#1) [facility]:00:00 [code = INFLUENZA Medical Ce nter VACCINE (#1)] Future Scheduled 2021-12-24 INFLUENZA VACCINE (#1) [facility] 00:00:00 [code = INFLUENZA Medical Ce nter VACCINE (#1)] Future Scheduled 2021-12-24 INFLUENZA VACCINE (#1) [facility] 00:00:00 [code = INFLUENZA Medical Ce nter VACCINE (#1)] Future Scheduled 2021-12-24 INFLUENZA VACCINE (#1) [facility] 00:00:00 [code = INFLUENZA Medical Ce nter VACCINE (#1)] Future Scheduled 2021-12-24 INFLUENZA VACCINE (#1) [facility] 00:00:00 [code = INFLUENZA Medical Ce nter VACCINE (#1)] Future Scheduled 2021-12-24 INFLUENZA VACCINE (#1) [facility] 00:00:00 [code = INFLUENZA Medical Ce nter VACCINE (#1)] Future Scheduled 2021-12-24 INFLUENZA VACCINE (#1) [facility] 00:00:00 [code = INFLUENZA Medical Ce nter VACCINE (#1)] Future Scheduled 2021-12-24 INFLUENZA VACCINE (#1) [facility] 00:00:00 [code = INFLUENZA Medical Ce nter VACCINE (#1)] Future Scheduled 2021-12-24 INFLUENZA VACCINE (#1) [facility] 00:00:00 [code = INFLUENZA Medical Ce nter VACCINE (#1)] Future Scheduled 2021-12-24 INFLUENZA VACCINE (#1) [facility] 00:00:00 [code = INFLUENZA Medical Ce nter VACCINE (#1)] Future Scheduled 2021-12-24 INFLUENZA VACCINE (#1) [facility] 00:00:00 [code = INFLUENZA Medical Ce nter VACCINE (#1)] Future Scheduled 2021-12-24 INFLUENZA VACCINE (#1) [facility] 00:00:00 [code = INFLUENZA Medical Ce nter VACCINE (#1)] Future Scheduled 2021-12-24 INFLUENZA VACCINE (#1) [facility] 00:00:00 [code = INFLUENZA Medical Ce nter VACCINE (#1)] Future Scheduled 2020-01-[address] [facility] measurement Medical Center (procedure) [code = 79545013] Future Scheduled 2020-01-[address] [facility] measurement Medical Center (procedure) [code = 01407467] Future Scheduled 2020-01-[address] [facility] measurement Medical Center (procedure) [code = 22471269] Future Scheduled 2020-01-[address] [facility] Medical Center (procedure) [code = 19771355] Future Scheduled 2020-01-[address] [facility] 00[facility] measurement Medical Center (procedure) [code = 66159597] Future Scheduled 2020-01-[address] [facility] measurement Medical Center (procedure) [code = 23086700] Future Scheduled 2020-01-[address] [facility] measurement [facility] Center (procedure) [code = 62214787] Future Scheduled 2020-01-[address] [facility] measurement Medical Center (procedure) [code = 38832462] Future Scheduled 2020-01-[address] [facility] 00[facility] measurement [facility] Center (procedure) [code = 82272569] Future Scheduled 2020-01-[address] [facility] 00[facility] (procedure) [code = 00090278] Future Scheduled 2020-01-[address] [facility] 00[facility] measurement [facility] Center (procedure) [code = 83431339] Future Scheduled 2020-01-[address] [facility] 00[facility] measurement [facility] (procedure) [code = 34699933] Future Scheduled 2020-01-[address] [facility] measurement [facility] (procedure) [code = 22302824] Future Scheduled 2019-02-[address] [facility] (procedure) [code = Medical Center 47063764] Future Scheduled 2019-02-[address] [facility] 00:00:00 (procedure) [code = Medical Center 18995836] Future Scheduled 2019-02-[address] [facility] 00:00:00 (procedure) [code = Medical Center 75811421] Future Scheduled 2019-02-[address] [facility] 00:00:00 (procedure) [code = Medical Center 92785136] Future Scheduled 2019-02-[address] [facility] 00:00:00 (procedure) [code = Medical Center 71977758] Future Scheduled 2019-02-[address] [facility] 00:00:00 (procedure) [code = Medical Center 73057640] Future Scheduled 2019-02-[address] [facility] 00:00:00 (procedure) [code = Medical Center 40303298] Future Scheduled 2019-02-[address] [facility] 00:00:00 (procedure) [code = Medical Center 51046126] Future Scheduled 2019-02-[address] [facility] 00:00:00 (procedure) [code = [facility] 61836320] Future Scheduled 2019-02-[address] [facility] 00:00:00 (procedure) [code = [facility] 33808985] Future Scheduled 2019-02-[address] [facility] 00:00:00 (procedure) [code = [facility] 84768379] Future Scheduled 2019-02-[address] [facility] 00:00:00 (procedure) [code = [facility] 26716148] Future Scheduled 2019-02-[address] [facility] 00:00:00 (procedure) [code = [facility] 37869268] Future Scheduled 2009-02-[address] [facility] 00:[facility]:00 malignant neoplasm of [facility]ica [facility] Center cervix (procedure) [code = 874645953] Future Scheduled 2009-02-[address] [facility] 00:00:00 malignant neoplasm of [facility] Center cervix (procedure) [code = 024522708] Future Scheduled 2009-02-[address] [facility] 00:00:00 malignant neoplasm of [facility] Center cervix (procedure) [code = 923821909] Future Scheduled 2009-02-[address] [facility] 00:00:00 malignant neoplasm of [facility] Center cervix (procedure) [code = 556184721] Future Scheduled 2009-02-[address] [facility] 00:00:00 malignant neoplasm of [facility] Center cervix (procedure) [code = 665977928] Future Scheduled 2009-02-[address] [facility] 00:00:00 malignant neoplasm of [facility] Center cervix (procedure) [code = 631661618] Future Scheduled 2009-02-[address] [facility] 00:00:00 malignant neoplasm of [facility] Center cervix (procedure) [code = 073322214] Future Scheduled 2009-02-[address] [facility] 00:00:00 malignant neoplasm of [facility]ica [facility] Center cervix (procedure) [code = 292985584] Future Scheduled 2009-02-[address] [facility] 00:00:00 malignant neoplasm of [facility]ica l Center cervix (procedure) [code = 977541558] Future Scheduled 2009-02-[address] [facility] 00:00[facility]00 [facility] [code = 353724182] Future Scheduled 2009-02-[address] [facility] 00:00:00 malignant neoplasm of Medica l Center cervix (procedure) [code = 319126758] Future Scheduled 2009-02-[address] [facility] 00:00:00 [facility]procedure) [code = 637489617] Future Scheduled 2009-02-[address] [facility] 00:00:00 [facility] (procedure) [code = 655859217] Future Scheduled 1998-02-[address] DI[address] EX[address] [facility] 00:00:00 [code = DIABETIC EYE Medical Center EXAM] Future Scheduled 1998-02-09 Urine screening [address] [facility] 00:00:00 protein (procedure) Medical Center [code = 526328573] Future Scheduled 1998-02-09 DIAB[address]YE EXAM [facility] 00:00:00 [code = DIABETIC EYE Medical Center EXAM] Future Scheduled 1998-02-09 Urine screening for [facility] 00:00:00 protein (procedure) Medical Center [code = 241540710] Future Scheduled 1998-02-[address] DIAB[address]YE EXAM [facility] 00:00:00 [code = DIABETIC EYE Medical Center EXAM] Future Scheduled 1998-02-09 Urine screening for [facility] 00:00:00 protein (procedure) [facility] [code = [id number]] Future Scheduled 1998-02-[address] [facility] 00:00:00 [code = DIABETIC EYE [facility] EXAM] Future Scheduled 1998-02-09 Urine screening for [facility] 00:00:00 protein (procedure) [facility] [code = [id number]] Future Scheduled 1998-02-[address] [facility] 00:00:00 [code = DIABETIC EYE [facility] EXAM] Future Scheduled 1998-02-09 Urine screening for [facility] 00:00:00 protein (procedure) [facility] [code = [id number]] Future Scheduled 1998-02-[address] EXAM [facility] 00:00:00 [code = DIABETIC EYE [facility] EXAM] Future Scheduled 1998-02-09 Urine screening for [facility] 00:00:00 protein (procedure) [facility] [code = [id number]] Future Scheduled 1998-02-[address] EXAM [facility] 00:00:00 [code = DIABETIC EYE [facility] EXAM] Future Scheduled 1998-02-09 Urine screening for [facility] 00:00:00 protein (procedure) [facility] [code = [id number]] Future Scheduled 1998-02-[address] DI[address] EXAM [facility] 00:00:00 [code = DIABETIC EYE [facility] EXAM] Future Scheduled 1998-02-09 Urine screening for [facility] 00:00:00 protein (procedure) [facility] [code = 840565410] Future Scheduled 1998-02-[address] DI[address]YE EXAM [facility] 00:00:00 [code = DIABETIC EYE [facility] EXAM] Future Scheduled 1998-02-09 Urine screening for [facility] 00:00:00 protein (procedure) [facility] [code = 056963826] Future Scheduled 1998-02-[address] DI[address] EXAM [facility] 00:00:00 [code = DIABETIC EYE [facility] EXAM] Future Scheduled 1998-02-09 Urine screening for [facility] 00:00:00 protein (procedure) [facility] [code = 643094181] Future Scheduled 1998-02-[address] DI[address] EXAM [facility] 00:00:00 [code = DIABETIC EYE [facility] EXAM] Future Scheduled 1998-02-09 Urine screening for [facility] 00:00:00 protein (procedure) [facility] [code = 591359912] Future Scheduled 1998-02-[address] EXAM [facility] 00:00:00 [code = DIABETIC EYE [facility] EXAM] Future Scheduled 1998-02-09 Urine screening for [facility] 00:00:00 protein (procedure) [facility] [code = 884243058] Future Scheduled 1998-02-[address] EXAM [facility] 00:00:00 [code = DIABETIC EYE [facility] EXAM] Future Scheduled 1998-02-09 Urine screening for [facility] 00:00:00 protein (procedure) [facility] [code = 990098648] Future Scheduled 1994-02-[address] [facility] 00:00:00 0-64 YRS (1 - PCV) Medical C enter [code = PNEUMOCOCCAL VACCINE 0-64 YRS (1 - PCV)] Future Scheduled 1994-02-[address] [facility] 00:00:00 0-64 YRS (1 - PCV) Medical C enter [code = PNEUMOCOCCAL VACCINE 0-64 YRS (1 - PCV)] Future Scheduled 1994-02-[address] [facility] 00:00:00 0-64 YRS (1 - PCV) Medical C enter [code = PNEUMOCOCCAL VACCINE 0-64 YRS (1 - PCV)] Future Scheduled 1994-02-[address] [facility] 00:00:00 0-64 YRS (1 - PCV) Medical C enter [code = PNEUMOCOCCAL VACCINE 0-64 YRS (1 - PCV)] Future Scheduled 1994-02-[address] [facility] 00:00:00 0-64 YRS (1 - PCV) Medical C enter [code = PNEUMOCOCCAL VACCINE 0-64 YRS (1 - PCV)] Future Scheduled 1994-02-[address] [facility] 00:00:00 0-64 YRS (1 - PCV) Medical C enter [code = PNEUMOCOCCAL VACCINE 0-64 YRS (1 - PCV)] Future Scheduled 1994-02-[address] [facility] 00:00:00 0-64 YRS (1 - PCV) Medical C enter [code = PNEUMOCOCCAL VACCINE 0-64 YRS (1 - PCV)] Future Scheduled 1994-02-[address] [facility] 00:00:00 0-64 YRS (1 - PCV) Medical C enter [code = PNEUMOCOCCAL VACCINE 0-64 YRS (1 - PCV)] Future Scheduled 1994-02-[address] [facility] 00:00:00 0-64 YRS (1 - PCV) Medical C enter [code = PNEUMOCOCCAL VACCINE 0-64 YRS (1 - PCV)] Future Scheduled 1994-02-[address] [facility] 00:00:00 0-64 YRS (1 - PCV) Medical C enter [code = PNEUMOCOCCAL VACCINE 0-64 YRS (1 - PCV)] Future Scheduled 1994-02-[address] [facility] 00:00:00 0-64 YRS (1 - PCV) Medical C enter [code = PNEUMOCOCCAL VACCINE 0-64 YRS (1 - PCV)] Future Scheduled 1994-02-[address] [facility] 00:00:00 0-64 YRS (1 - PCV) Medical C enter [code = PNEUMOCOCCAL VACCINE 0-64 YRS (1 - PCV)] Future Scheduled 1994-02-[address] [facility] 00:00:00 0-64 YRS (1 - PCV) Medical C enter [code = PNEUMOCOCCAL VACCINE 0-64 YRS (1 - PCV)] Future Scheduled 1988 COVID-19 VACCINE (#1) [facility] [code = COVID-[address] VACCINE (#1)] Future Scheduled 1988 COVID-19 VACCINE (#1) [facility] 00:[facility] [code = COVID-[address] VACCINE (#1)] Future Scheduled 1988 COVID-19 VACCINE (#1) [facility] 00:[facility] [code = COVID-[address] VACCINE (#1)] Future Scheduled 1988 COVID-19 VACCINE (#1) [facility] 00:00:00 [code = COVID-[address] VACCINE (#1)] Future Scheduled 1988 COVID-19 VACCINE (#1) [facility] 00:[facility] [code = COVID-[address] VACCINE (#1)] Future Scheduled 1988 COVID-19 VACCINE (#1) [facility] 00:00:[facility] [code = COVID-[address] VACCINE (#1)] Future Scheduled 1988 COVID-19 VACCINE (#1) [facility] 00:00:[facility] [code = COVID-[address] VACCINE (#1)] Future Scheduled 1988 COVID-19 VACCINE (#1) [facility] 00:00:[facility] [code = COVID-[address] VACCINE (#1)] Future Scheduled 1988 COVID-19 VACCINE (#1) [facility] 00:00:[facility] [code = COVID-[address] VACCINE (#1)] Future Scheduled 1988 COVID-19 VACCINE (#1) [facility] 00:00:[facility] [code = COVID-[address] VACCINE (#1)] Future Scheduled 1988 COVID-19 VACCINE (#1) [facility] 00:[facility] [code = COVID-[address] VACCINE (#1)] Future Scheduled 1988 COVID-19 VACCINE (#1) [facility] 00:00:00 [code = COVID-[address] VACCINE (#1)] Future Scheduled 1988 COVID-19 VACCINE (#1) [facility] 00:[facility]:00 [code = COVID-[address] VACCINE (#1)] Encounters Start End Encounter Admission Attending Care Care Encounter Source Date/Time Date/Time Type Type Clinicians Facility Department ID 2022-06-08 [facility] [id number] [facility] 00:00:00 Encounter [facility] 2021-02-22 Outpatient P [facility] [id number] Univers 16:28:19 ity [facility] 2021-02-22 [facility]patient [facility] [id number] Univers 16:27:52 ity of [facility] 2021-02-22 Outpatient P [facility] [id number] Univers 05:24:42 ity of [facility] 2021-02-22 Outpatient P [facility] [id number] Univers 03:44:09 ity [facility] 2021-02-22 Outpatient P [facility] [id number] Univers 03:43:36 ity [facility] 2021-02-21 Emergency [facility] [id number] Univers 22:06:05 ity [facility] 2022-10-12 2022-10-12 Outpatient AMBER HOLDEN [facility] [id number] SLE 00:00:00 00:00:00 FERNY 2022-09-30 2022-09-30 Outpatient DEBORAH CLOUD [id number] [facility] 14:12:35 14:57:14 PAULINE Stanley Medicin e 2022-09-17 2022-09-17 Outpatient AMBER ADINA, [facility] [id number] [facility] 07:33:53 23:59:00 FERNY 2022-06-21 2022-06-21 Outpatient DEBORAH CLOUD [id number] [facility] 12:51:14 15:21:52 PAULINE Azul e of Medicin e 2022-06-14 2022-06-14 Emergency ER SEVERE, [facility] Emergency [id number] SLE 11:57:00 21:30:00 GERARD 2022-06-14 2022-06-[address] [facility] [id number] 11:57:00 21:30:00 Severe, Gerard [facility] 2022-06-08 2022-06-12 Inpatient AMBER CLOUD [facility] Neurosurger [id number] SLE 19:26:00 13:43:00 PAULINE y 2022-06-08 2022-06-12 [facility] [id number] 19:26:00 13:43:00 Encounter [facility] 2022-06-12 2022-06-[address] [facility] [id number] 00:00:00 00:00:00 Only Edgar [facility] 2022-06-09 2022-06-09 [facility] [id number] 09:00:00 17:30:00 [facility] 2022-06-09 2022-06-[address] [facility] [id number] 09:05:00 14:02:[address] [facility] 2022-06-09 2022-06-09 Travel [facility] [id number] [facility] 00:[facility]00 00:00:00 [facility] 2022-06-08 2022-06-08 Hospital [facility] [id number] 13:30:00 13:30:00 Encounter [facility] 2022-06-08 2022-06-08 Outpatient AMBER MONREALKITA [facility] [id number] SLE 00:00:00 00:00:00 [place] 2022-06-08 2022-06-08 [id number] 00:00:00 00:00:00 Only [facility] 2022-06-07 2022-06-[address] [facility] [id number] 00:00:00 00:00:00 Orders [facility] 2022-06-02 2022-06-02 Outpatient AMBER CLOUD [facility] [id number] SLE 00:00:00 00:00:00 [place] 2022-06-02 2022-06-02 Travel [facility] [id number] [facility] 00:[facility]00 00:00:00 [facility] 2022-04-12 2022-04-12 Outpatient DEBORAH CLOUD Yolanda [id number] [facility] 13:01:46 16:11:46 PAULINE [facility] 2021-10-05 2021-10-05 Outpatient DEBORAH CLOUD [facility] [id number] [facility] 09:57:59 11:08:22 PAULINE [facility] 2021-09-15 2021-09-18 [facility]patient [facility] Neurosurger [id number] [facility] 23:23:00 13:29:00 vivek HALL 2021-09-15 2021-09-18 [facility] [id number] 23:23:00 13:29:00 Encounter [facility] 2021-09-15 2021-09-15 Travel [facility] [id number] [facility] 00:[facility]00 00:00:00 [facility] 2020-12-18 2020-12-18 Outpatient Karan RODRIGUEZ [facility] [id number] Univers 11:00:00 11:00:00 RODRIGUE reyes [facility] 2020-09-29 2020-09-29 Office Josep, [facility] [id number] [id number] Univers 10:09:43 11:12:52 Visit Amos Coello EDITORIAL ASSISTANT 350.1.13.10 ity of REGIONAL 4.2.7.2.686 Ronal as MATERNAL [phone] [facility] & [address] 2020-09-29 2020-09-29 Outpatient R JOSEP [facility] [id number] Univers 09:45:00 09:45:00 AMOS reyes o [facility] 2020-09-26 2020-09-26 [facility] [id number] Univers 15:15:00 15:15:00 AMOS reyes o f [facility] 2020-09-05 2020-09-05 [facility] 1.2.503.449 [id number] Univers 10:52:35 11:39:33 Amos Coello EDITORIAL ASSISTANT 350.1.13.10 ity of Visit REGIONAL 4.2.7.2.686 Ronal as MATERNAL [id number] [facility] & CHILD [address] [place] [address] 2020-09-05 2020-09-05 Outpatient R JOSEP [facility] [id number] Univers 10:30:00 10:30:00 AMOS ity o [facility] 2020-08-22 2020-08-22 [facility] Darline Diez 1.2.840.114 [id number] Univers 17:57:00 20:27:00 Encounter [place] 350.1.13.10 [id number] [address] 2020-08-22 2020-08-22 Nurse Visit, Link-Rmchp Nurse [facility] 1.2 .840.114 [id number] Univers 13:28:42 14:02:33 Visit Amos Car EDITORIAL ASSISTANT 350.1.13. 10 ity of REGIONAL 4.2.7.2.686 Ronal as MATERNAL [phone] [facility] & CHILD [address] [place] [address] 2020-08-22 2020-08-22 Outpatient R [facility] [id number] Univers 13:30:00 13:30:00 ity of [facility] 2020-08-14 2020-08-17 [facility] IVAN Ochoa 1.2.840.114 [id number] Univers 13:52:00 14:57:00 Encounter Antonieta DARION 350.1.13.10 ity of [facility] 4.2.7.2.686 Ronal as [id number] [facility] [address] 2020-08-15 2020-08-15 Surgery IVAN Ochoa 1.2.840.114 [id number] Univers 15:36:00 17:22:00 Antonieta DAR[place] 350.1.13.10 i [place] [id number] [facility] [address] [place] 2020-08-14 2020-08-15 Anesthesia Reynaldo Jennings 1.2.840.114 [id number] Univers 20:40:00 15:40:00 Event Debi Galo DAR[place] 350.1.13.10 ity of [place] [address].[place] [id number] [facility] [address] 2020-08-14 2020-08-14 Routine [employer] 1.2.800.326 [id number] Univers 10:33:15 11:10:09 Amos Coello EDITORIAL ASSISTANT 350.1.13.10 ity of Visit [facility] 4.2.7.2.686 Ronal as MATERNAL [phone] [facility] ical & CHILD [address] [place] [address] 2020-08-14 2020-08-14 Outpatient R JOSEP [facility] [id number] Univers 10:30:00 10:30:00 AMOS reyes o f [facility] 2020-08-14 2020-08-14 Orders Doctor IVAN 1.2.840.114 [id number] Univers 00:00:00 00:00:00 Only Unassigned, DARION 350.1.13.10 ity of [place] [facility] 4.2.7.2.686 Ronal as [phone] [facility] [address] 2020-08-12 2020-08-12 [facility] 1.2.800.712 [id number] Univers 00:00:00 00:00:00 Amos Coello EDITORIAL ASSISTANT 350.1.13.10 ity of REGIONAL 4.2.7.2.686 Ronal as MATERNAL [phone] [facility] & CHILD [address] [place] [address] 2020-08-06 2020-08-06 Outpatient R AKINSITOM, [facility] [id number] Univers 08:00:00 08:00:00 AMOS ity o f [facility] 2020-07-31 2020-07-31 Routine Akinjarocho, [facility] 1.2.604.729 [id number] Univers 13:57:00 14:40:22 Amos C EDITORIAL ASSISTANT 350.1.13.10 ity of Visit REGIONAL 4.2.7.2.686 Ronal as MATERNAL [phone] [facility] & CHILD [address] [place] [address] 2020-07-31 2020-07-31 Outpatient R AKINSIPE, [facility] [id number] Univers 14:00:00 14:00:00 AMOS reyes o [facility] 2020-07-17 2020-07-17 [facility] 1.2.190.007 [id number] Univers 11:13:30 11:43:32 Amos C EDITORIAL ASSISTANT 350.1.13.10 ity of Visit REGIONAL 4.2.7.2.686 Ronal as MATERNAL [phone] [facility] & [address] 2020-07-17 2020-07-17 Outpatient R AKINSIPE, [facility] [id number] Univers 11:00:00 11:00:00 AMOS reyes o [facility] 2020-07-15 2020-07-15 [facility] 1.2.840.114 [id number] Univers 00:00:00 00:00:00 Outreach Stef PRIMARY 350.1.13.10 i ty of [facility] 4.2.7.2.686 [place]onal[place]ang [place]ands LEORA [phone] [address] 2020-07-10 2020-07-10 Outpatient R AKINSITOM, [facility] [id number] Univers 16:00:00 16:00:00 MAOS reyes o [facility] 2020-07-03 2020-07-03 [facility] 1.2.217.398 [id number] Univers 15:30:00 16:44:00 Encounter Olya Guerrero [place] 350.1.13.10 [place] [id number] [facility] [address] 2020-07-03 2020-07-03 [facility] 1.2.500.426 [id number] 15:30:00 16:44:00 Encounter Olya Guerrero [place] 350.1.13.10 [place] 4.2.7.2.686 [id number] 2020-07-03 2020-07-03 Outpatient R JOSEP, [facility] [id number] [facility] 15:45:00 15:45:00 AMOS reyes o f [facility] 2020-07-02 2020-07-02 Orders Doctor IVAN 1.2.840.114 [id number] Univers 00:00:00 00:00:00 Only Unassigned, DARION 350.1.13.10 ity of [place] [facility] 4.2.7.2.686 Ronal as [phone] [facility] [address] 2020-07-02 2020-07-02 Orders Doctor IVAN 1.2.840.114 [id number] 00:00:00 00:00:00 Only Unassigned, [place]AR[place] 350.1.13.10 [place] [facility] 4.2.7.2.686 [id number] 2020-06-27 2020-06-27 [facility] 1.2.840.114 [id number] Univers 17:54:00 20:00:00 Encounter [place] 350.1.13.10 ity of [place] [id number] [facility] [address] 2020-06-27 2020-06-27 [facility] 1.2.840.114 [id number] 17:54:00 20:00:00 Encounter [place] 350.1.13.10 [place] 4.2.7.2.686 [place] [id number] 2020-06-27 2020-06-27 Nurse Esther Curran 1.2.840.114 [id number] Univers 00:00:00 00:00:00 Triage [place]ARION 350.1.13.10 it y of HOSPITAL 4.2.7.2.686 Ronal as [id number] [facility] [address] [place] 2020-06-27 2020-06-27 Nurse Esther Curran 1.2.840.114 [id number] 00:00:00 00:00:00 Triage [place] 350.1.13.10 HOSPITAL 4.2.7.2.686 [id number] 2020-06-26 2020-06-26 Routine Akinsipe, [facility] 1.2.638.232 [id number] [facility] 08:13:46 08:45:55 Amos C EDITORIAL ASSISTANT 350.1.13.10 ity of Visit REGIONAL 4.2.7.2.686 Ronal as MATERNAL [id number] Med ical & CHILD [address] [place] [address] 2020-06-26 2020-06-26 Routine Akinsipe, [facility] 1.2.238.133 [id number] 08:13:46 08:45:55 Amos C EDITORIAL ASSISTANT 350.1.13.10 Visit REGIONAL 4.2.7.2.686 MATERNAL [id number] & CHILD [address] [place] [address] 2020-06-26 2020-06-26 Outpatient R AKINPE, [facility] [id number] Univers 08:00:00 08:00:00 AMOS ity o f [facility] 2020-06-26 2020-06-26 Orders Doctor LOVE 1.2.840.114 [id number] Univers 00:00:00 00:00:00 Only Unassigned, DARION 350.1.13.10 ity of [place] HOSPITAL 4.2.7.2.686 Ronal as [id number] [facility] [address] [place] 2020-06-26 2020-06-26 Orders Doctor IVAN 1.2.840.114 [id number] 00:00:00 00:00:00 Only Unassigned, [place] 350.1.13.10 [place] [facility]PITAL 4.2.7.2.686 [id number] [facility][note 3] 2020-06-19 2020-06-19 Routine Akinsipe, [facility] 1.2.513.037 [id number] Univers 16:12:48 16:55:51 Amos C EDITORIAL ASSISTANT 350.1.13.10 ity of Visit REGIONAL 4.2.7.2.686 Ronal as MATERNAL [id number] [facility] & CHILD [address] [place] [address] 2020-06-19 2020-06-19 Routine Akinsipe, [facility] 1.2.757.305 [id number] 16:12:48 16:55:51 Amos C EDITORIAL ASSISTANT 350.1.13.10 Visit REGIONAL 4.2.7.2.686 MATERNAL [id number] & [address] 2020-06-19 2020-06-19 Outpatient R AKINSIPE, [facility] [id number] Univers 16:00:00 16:00:00 AMOSJO ANN reyes o f [facility] 2020-06-05 2020-06-05 Routine Akinsipe, [facility] 1.2.996.946 [id number] Univers 16:10:24 16:44:03 Amos C EDITORIAL ASSISTANT 350.1.13.10 ity of Visit REGIONAL 4.2.7.2.686 Ronal as MATERNAL [id number] [facility] & [address] 2020-06-05 2020-06-05 Routine Akinsipe, [facility] 1.2.417.116 [id number] 16:10:24 16:44:03 Amos C EDITORIAL ASSISTANT 350.1.13.10 Visit REGIONAL 4.2.7.2.686 MATERNAL [phone] & CHILD [address] [place] [address] 2020-06-05 2020-06-05 Outpatient R AKINSIPE, [facility] [id number] Univers 16:00:00 16:00:00 AMOS ity o f [facility] 2020-05-30 2020-05-30 Emergency Karin Joshua [facility] 1.2.840 .114 [id number] Univers 12:02:00 14:45:00 Carlos Aguillon 350.1.13.10 ity [facility] 4[place]2.7.2.[place] [id number] [address] 2020-05-30 2020-05-30 Emergency Karin Joshua [facility] 1.2.840 .114 [id number] 12:02:00 14:45:00 Carlos Aguillon [place] 350.1.13.10 [place] 4.2.7.2.686 [place] [id number] [facility] 2020-05-29 2020-05-29 Telephone Akinsipe, [facility] 1.2.840.114 [id number] Univers 00:00:00 00:00:00 Amos C EDITORIAL ASSISTANT 350.1.13.10 ity of REGIONAL 4.2.7.2.686 Ronal as MATERNAL [id number] [facility] ical & CHILD [address] [place] [address] 2020-05-29 2020-05-29 Telephone Akinsipe, [facility] 1.2.840.114 [id number] 00:00:00 00:00:00 Amos C EDITORIAL ASSISTANT 350.1.13.10 REGIONAL 4.2.7.2.686 MATERNAL [id number] & CHILD [address] [place] [address] 2020-05-22 2020-05-22 Telephone Akinsipe, [facility] 1.2.840.114 [id number] Univers 00:00:00 00:00:00 Amos C EDITORIAL ASSISTANT 350.1.13.10 ity of REGIONAL 4.2.7.2.686 Ronal as MATERNAL [id number] [facility] ical & CHILD [address] [place] [address] 2020-05-22 2020-05-22 Telephone Akinsipe, [facility] 1.2.840.114 [id number] 00:00:00 00:00:00 Amos C EDITORIAL ASSISTANT 350.1.13.10 REGIONAL 4.2.7.2.686 MATERNAL [id number] & CHILD [address] [place] [address] 2020-05-21 2020-05-21 Routine Akinsipe, [facility] 1.2.776.512 [id number] Univers 12:46:00 13:13:29 Amos C EDITORIAL ASSISTANT 350.1.13.10 ity of Visit REGIONAL 4.2.7.2.686 Ronal as MATERNAL [id number] [facility] ical & CHILD [address] [place] [address] 2020-05-21 2020-05-21 Outpatient R JOSEP [facility] [id number] Univers 12:45:00 12:45:00 AMOS luz [facility] 2020-04-23 2020-04-[address] [facility] 1.2.669.723 [id number] Univers 16:03:33 16:32:10 Amos C EDITORIAL ASSISTANT 350.1.13.10 ity of Visit REGIONAL 4.2.7.2.686 Ronal as MATERNAL [id number] [facility] & CHILD [address] [place] [address] 2020-04-23 2020-04-23 Outpatient R JOSEP [facility] [id number] Univers 16:00:00 16:00:00 AMOS eric [place] eusebio [facility] 2020-04-22 2020-04-22 Outpatient R JOSEP [facility] [id number] Univers 10:45:00 10:45:00 AMOS brittneyvivek luz [facility] 2020-04-15 2020-04-15 Affiliate Marketing Manager Ultrasound, [facility] 1.2 .840.114 [id number] Univers 09:15:20 10:28:29 Visit Otto Tsang Karan EDITORIAL ASSISTANT [id number] ity of REGIONAL 4.2.7.2.686 Ronal as MATERNAL [phone] [facility] & CHILD [address] [facility] 2020-04-15 2020-04-15 Outpatient P [facility] [id number] Univers 09:00:00 09:00:00 ity of [facility] 2020-04-15 2020-04-15 [facility] [id number] Univers 00:00:00 00:00:00 Amos Coello EDITORIAL ASSISTANT 350.1.13.10 ity of REGIONAL 4.2.7.2.686 Ronal as MATERNAL [id number] [facility] & CHILD [address] [place] [address] 2020-04-15 2020-04-15 [facility] [id number] [id number] Univers 00:00:00 00:00:00 Amos C EDITORIAL ASSISTANT 350.1.13.10 ity of REGIONAL 4.2.7.2.686 Ronal as MATERNAL [phone] Med ical & CHILD [address] [facility] 2020-04-07 2020-04-07 Telephone [facility] 1.2.840.114 [id number] Univers 00:00:00 00:00:00 Olya Guerrero EDITORIAL ASSISTANT 350.1.13.10 i ty of REGIONAL 4.2.7.2.686 Ronal as MATERNAL [phone] Med ical & CHILD [address] [place] [address] 2020-03-24 2020-03-24 Routine [employer] [id number] Univers 10:49:14 11:37:14 Amos C EDITORIAL ASSISTANT 350.1.13.10 ity of Visit REGIONAL 4.2.7.2.686 Ronal as MATERNAL [phone] Med ical & CHILD [address] [place] [address] 2020-03-24 2020-03-24 Outpatient R [facility] [id number] Univers 10:45:00 10:45:00 AMOS luz The [facility] 2020-02-26 2020-02-26 Affiliate Marketing Manager Joelle Brennan Room [facility] 1.2. 840.114 [id number] Univers 09:11:59 09:56:59 Visit Peng Redmond EDITORIAL ASSISTANT 350.1.13.10 ity of REGIONAL 4.2.7.2.686 Ronal as MATERNAL [phone] Med ical & CHILD 369 [facility] 2020-02-26 2020-02-26 Affiliate Marketing Manager Lab/Pipe BunnRmchp [facility] 1.2 .840.114 [id number] Univers 09:12:35 09:45:16 Visit Maraynn Frausto EDITORIAL ASSISTANT 350.1.13.10 ity of REGIONAL 4.2.7.2.686 [place]onal as MATERNAL [phone] Med ical & CHILD 125 [facility] 2020-02-26 2020-02-26 Outpatient P [facility] [id number] Univers 09:00:00 09:00:00 ity of [facility] 2020-02-25 2020-02-25 Routine [employer] 1.2.245.575 [id number] Univers 09:50:41 10:24:38 Amos C EDITORIAL ASSISTANT 350.1.13.10 ity of Visit REGIONAL 4.2.7.2.686 Ronal as MATERNAL [phone] [facility] & CHILD [address] [place] [address] 2020-02-25 2020-02-25 Outpatient [facility] [id number] Univers 10:15:00 10:15:00 AMOS ity o f [facility] 2020-02-18 2020-02-18 Routine Faculty, Link [facility] 1.2 .840.114 [id number] Univers 08:53:42 09:30:56 Herman Redmond EDITORIAL ASSISTANT 350.1.13.10 ity of Visit REGIONAL 4.2.7.2.686 Ronal as MATERNAL [phone] [facility] & [address] 2020-02-18 2020-02-18 Outpatient R [facility] [id number] Univers 09:00:00 09:00:00 ity of [facility] 2020-02-15 2020-02-15 Telephone [employer] 1.2.840.114 [id number] Univers 00:00:00 00:00:00 Amos C EDITORIAL ASSISTANT 350.1.13.10 ity of REGIONAL 4.2.7.2.686 [place]onal as MATERNAL [phone] [facility] & [address] 2020-02-12 2020-02-12 Abstract [employer] 1.2.840.114 [id number] Univers 00:00:00 00:00:00 Amos C EDITORIAL ASSISTANT 350.1.13.10 ity of REGIONAL 4.2.7.2.686 Ronal as MATERNAL [phone] [facility] & [address] 2020-02-11 2020-02-11 Affiliate Marketing Manager [facility] 1.2. 840.114 [id number] Univers 08:07:07 08:52:07 Visit Dora Guerrero EDITORIAL ASSISTANT 350.1. 13.10 ity of Olya Rodriguez REGIONAL 4.2.7.2.686 [place] MATERNAL [phone] [facility] ical & CHILD [address] [place] [address] 2020-02-11 2020-02-11 Outpatient P [facility] [id number] Univers 08:00:00 08:00:00 ity [facility] 2020-02-01 2020-02-01 [facility] 1.2.840.114 [id number] Univers 00:00:00 00:00:00 Amos C EDITORIAL ASSISTANT 350.1.13.10 ity of REGIONAL 4.2.7.2.686 Ronal as MATERNAL [phone] [facility] & CHILD [address] [place] [address] 2020-01-31 2020-01-31 Affiliate Marketing Manager Lab, [facility] [place] 1.2.840. 114 [id number] Univers 10:26:35 10:40:40 Visit Rodrigue Rodriguez EDITORIAL ASSISTANT 350.1.13.10 ity of REGIONAL 4.2.7.2.686 Ronal as MATERNAL [phone] [facility] & [address] 2020-01-31 2020-01-31 Outpatient R [facility] [id number] Univers 10:30:00 10:30:00 ity of [facility] 2020-01-28 2020-01-28 [facility]phone [facility] 1.2.840.114 [id number] Univers 00:00:00 00:00:00 Amos C EDITORIAL ASSISTANT 350.1.13.10 ity of REGIONAL 4.2.7.2.686 Ronal as MATERNAL [phone] [facility] & CHILD [address] [place] [address] 2020-01-24 2020-01-24 Initial [employer] 1.2.001.426 [id number] Univers 14:07:26 15:41:36 Amos C EDITORIAL ASSISTANT 350.1.13.10 ity of Visit REGIONAL 4.2.7.2.686 Ronal as MATERNAL [phone] [facility] & CHILD [address] [place] [address] 2020-01-24 2020-01-24 Outpatient R [facility] [id number] Univers 14:00:00 14:00:00 ity of [facility] 2020-01-24 2020-01-24 Orders Doctor IVAN 1.2.840.114 [id number] Univers 00:00:00 00:00:00 Only Unassigned, DARION 350.1.13.10 ity of [place] [facility] 4.2.7.2.686 Ronal as [phone] [address] 2019-12-19 2019-12-19 Telephone [facility] 1.2.840.114 [id number] Univers 00:00:00 00:00:00 Rodrigue Zhou EDITORIAL ASSISTANT 350.1.13.10 it y of [facility] 4.2.7.2.686 Ronal as MATERNAL [phone] [facility] ical & CHILD [address] [place] [address] 2019-12-18 2019-12-18 Office [facility] 1.2.064.657 [id number] Univers 08:49:27 09:04:27 Visit Rodrigue Zhou EDITORIAL ASSISTANT 350.1.13.10 it y of [facility] 4.2.7.2.686 Ronal as MATERNAL [phone] [facility] & [address] 2019-12-18 2019-12-18 [facility] [id number] Univers 08:30:00 08:30:00 RODRIGUE ity of [facility] 2019-12-18 2019-12-18 Orders Doctor IVAN 1.2.840.114 [id number] Univers 00:00:00 00:00:00 Only Unassigned, DARION 350.1.13.10 ity of [place] [facility] 4.2.7.2.686 Ronal as [phone] [address] 2019-12-11 2019-12-11 [facility] [id number] Univers 14:45:00 14:45:00 AMOS reyes o f [facility] 2019-07-10 2019-07-10 Telephone [employer] 1.2.840.114 [id number] Univers 00:00:00 00:00:00 Amos Coello EDITORIAL ASSISTANT 350.1.13.10 ity of REGIONAL 4.2.7.2.686 Ronal as MATERNAL [phone] [facility] & CHILD [address] [place] [address] 2019-07-07 2019-07-07 Outpatient [facility] [id number] [facility] 04:03:00 04:03:00 [id number] 2019-07-04 2019-07-04 Outpatient R JOSEP [facility] [id number] Univers 10:00:00 10:00:00 AMOS ity o f [facility] 2019-07-02 2019-07-02 Outpatient R JOSEP, [facility] [id number] Univers 09:45:00 09:45:00 AMOS ity o f [facility] 2019-06-28 2019-06-28 [facility] 1.2.840.114 [id number] Univers 00:00:00 00:00:00 Amos Oumou EDITORIAL ASSISTANT 350.1.13.10 ity of [facility] 4.2.7.2.686 Ronal as MATERNAL [phone] [facility] & CHILD [address] [place] [address] 2019-06-27 2019-06-27 Affiliate Marketing Manager Lab, [facility] 1.2.840. 114 [id number] Univers 10:02:34 10:17:34 Visit Amos Car EDITORIAL ASSISTANT 350.1.13. 10 ity of [facility] 4.2.7.2.686 Ronal as MATERNAL [phone] [facility] & CHILD [address] [place] [address] 2019-06-27 2019-06-27 Outpatient R JOSEP [facility] [id number] Univers 10:00:00 10:00:00 AMOS ity o f [facility] 2019-06-27 2019-06-27 [facility] 1.2.840.114 [id number] Univers 00:00:00 00:00:00 Amos C EDITORIAL ASSISTANT 350.1.13.10 ity of [facility] 4.2.7.2.686 Ronal as MATERNAL [phone] [facility] & CHILD [address] [place] [address] 2019-06-21 2019-06-21 Outpatient Karan RODRIGUEZ [facility] [id number] Univers 13:00:00 13:00:00 RODRIGUETYSON lugovivek [facility] 2019-06-21 2019-06-21 Affiliate Marketing Manager Lab, [facility] 1.2.840. 114 [id number] Univers 10:55:36 11:04:19 Visit Rodrigue Rodriguez EDITORIAL ASSISTANT 350.1.13.10 ity of REGIONAL 4.2.7.2.686 Ronal as MATERNAL [phone] Med ical & CHILD [address] [place] [address] 2019-06-20 2019-06-20 Outpatient [facility] [id number] Univers 10:00:00 10:00:00 RODRIGUE eric [facility] 2019-06-15 2019-06-15 Telephone [employer] 1.2.840.114 [id number] Univers 00:00:00 00:00:00 Amos C EDITORIAL ASSISTANT 350.1.13.10 ity of REGIONAL 4.2.7.2.686 Ronal as MATERNAL [phone] Med ical & CHILD [address] [place] [address] 2019-06-14 2019-06-14 Telephone [facility] 1.2.840.114 [id number] Univers 00:00:00 00:00:00 Amos C EDITORIAL ASSISTANT 350.1.13.10 ity of REGIONAL 4.2.7.2.686 Ronal as MATERNAL [phone] Med ical & CHILD [address] [place] [address] 2019-06-13 2019-06-13 Affiliate Marketing Manager Lab, [facility] 1.2.840. 114 [id number] Univers 11:02:54 11:17:54 Visit Rodrigue Rodriguez EDITORIAL ASSISTANT 350.1.13.10 ity of REGIONAL 4.2.7.2.686 Ronal as MATERNAL [phone] Med ical & CHILD [address] [place] [address] 2019-06-12 2019-06-12 Telephone [employer] 1.2.840.114 [id number] Univers 00:00:00 00:00:00 Amos C EDITORIAL ASSISTANT 350.1.13.10 ity of REGIONAL 4.2.7.2.686 Ronal as MATERNAL [phone] Med ical & CHILD [address] [place] [address] 2019-06-11 2019-06-11 Office [facility] 1.2.057.988 [id number] Univers 16:08:11 17:01:39 Visit Amos Coello EDITORIAL ASSISTANT 350.1.13.10 ity of REGIONAL 4.2.7.2.686 Ronal as MATERNAL [phone] Med ical & CHILD [address] [place] [address] 2019-06-11 2019-06-11 Orders Doctor IVAN 1.2.840.114 [id number] Univers 00:00:00 00:00:00 Only Unassigned, DARION 350.1.13.10 ity of [place] [facility] 4.2.7.2.686 Ronal as [phone] [facility] [address] 2019-06-07 2019-06-07 Telephone [facility] 1.2.840.114 [id number] Univers 00:00:00 00:00:00 Rodrigue Zhou EDITORIAL ASSISTANT 350.1.13.10 it y of REGIONAL 4.2.7.2.686 Ronal as MATERNAL [phone] Med ical & CHILD [address] [place] [address] 2019-01-12 2019-01-12 Telephone [facility] 1.2.840.114 [id number] Univers 00:00:00 00:00:00 Rodrigue Zhou EDITORIAL ASSISTANT 350.1.13.10 it y of REGIONAL 4.2.7.2.686 Ronal as MATERNAL [phone] Med ical & CHILD [address] [place] [address] 2019-01-11 2019-01-11 Telephone CARMEN Talavera 1.2.840.114 [id number] Univers 00:00:00 00:00:00 [facility] 350.1.13.10 i ty of [facility] 4.2.7.2.[place] [phone] [facility] [address] 2019-01-08 2019-01-08 Telephone [facility] 1.2.840.114 [id number] Univers 00:00:00 00:00:00 Rodrigue Zhou EDITORIAL ASSISTANT 350.1.13.10 it y of REGIONAL 4.2.7.2.686 Ronal as MATERNAL [phone] Med ical & CHILD [address] [place] [address] 2019-01-05 2019-01-05 Routine Trimester, [facility] Res-1st [facility] 1.2.840.114 [id number] Univers 11:17:37 12:11:36 Albert Lloyd Y HEALTH 350.1.13.10 ity of Visit CLINICS [place].7.2.[place] [phone] [facility] [address] 2019-01-02 2019-01-02 Routine Trimester, [facility] 1.2.840.114 [id number] Univers 09:53:22 11:04:28 Charli Garcia Y HEALTH 350.1.13.10 ity of Visit CLINICS [place].2.[place] [id number] [facility] [address] 2019-01-02 2019-01-02 Orders Doctor IVAN 1.2.840.114 [id number] Univers 00:00:00 00:00:00 Only Unassigned, DARION 350.1.13.10 ity of [place] [facility] 4.2.7.2.686 Ronal as [phone] [facility] [address] 2019-01-01 2019-01-01 Affiliate Marketing Manager 3, [facility] Us Room UNIVERSIT 1 .2.840.114 [id number] Univers 14:43:19 16:15:18 Visit Antonieta Ochoa [facility] 350.1.13.10 ity of CL[place] [phone] [facility] [address] 2018-12-27 2018-12-27 Telephone MichaelTHOMSON, UTTELLY 1.2.840.114 [id number] Univers 00:00:00 00:00:00 Rodrigue Zhou EDITORIAL ASSISTANT 350.1.13.10 it y of REGIONAL 4.2.7.2.686 Ronal as MATERNAL [phone] Med ical & CHILD [address] [place] [address] 2018-12-26 2018-12-26 [facility]phone [facility] 1.2.840.114 [id number] Univers 00:00:00 00:00:00 Rodrigue Zhou EDITORIAL ASSISTANT 350.1.13.10 it y of REGIONAL 4.2.7.2.686 Ronal as MATERNAL [phone] Med ical & CHILD [address] [place] [address] 2018-12-26 2018-12-[address] [facility] 1.2.730.812 [id number] Univers 00:00:00 00:00:00 Secure Msg Rodrigue Zhou EDITORIAL ASSISTANT 350.1.13.10 ity of [facility] 4.2.7.2.686 Ronal as MATERNAL [phone] [facility] & CHILD [address] [place] [address] 2018-12-22 2018-12-[address] [facility] 1.2.654.384 [id number] Univers 14:16:35 15:25:59 Rodrigue N EDITORIAL ASSISTANT 350.1.13.10 i ty of Visit [facility] 4.2.7.2.686 Ronal as MATERNAL [phone] [facility] & CHILD [address] [place] [address] 2018-12-22 2018-12-22 Orders Doctor IVAN 1.2.840.114 [id number] Univers 00:00:00 00:00:00 Only Unassigned, DARION 350.1.13.10 ity of [place] [facility] 4.2.7.2.686 Ronal as [phone] [address] Results Test Description Test Time Test Comments Results Result [facility] e Comments MR, BRAIN, WITHOUT 2022-09-17 Unlisted Reason CONTRAST 09:47:00 for Exam - Click Yes and Enter Reason [facility] - Below->No [facility]ENTER[facility]: [facility] [place] : 1990 Sex: F *FINAL REPORT 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 CT head 06/14/2022 and prior. Technique: Sagittal and axial T2 FS, axial DWI, axial T2*GRE, axial T1 FLAIR and axial coronal T2 FLAIR.Intravenous contrast: None Findings: Scalp/Bone marrow: Changes of prior right pterional craniotomy. Brain sulci: Appropriate for age.Ventricles: Normal in size. No hydrocephalus.Extra axial spaces: Interval near-complete resolution of previously seen small postsurgical extra-axial collection underlying the craniotomy. No other mass, no fluid collection. Parenchyma:Postsurgi na changes related to right inferior frontal cavernoma resection, with associated small region of encephalomalacia, surrounding gliosis, and hemosiderin staining. No evidence of residual lesion.No other masses, hemorrhage, or acute vascular insults. Suprasellar region: No abnormalities.Cranio cervical junction: Patent foramen magnum. No Chiari malformation.Vessels : Normal flow-voids in the arteries and sinuses. IMPRESSION: 1.No acute or new intracranial abnormalities.2.Evol ving postsurgical changes related to prior right pterional craniotomy for resection of right inferior frontal cavernoma. Signed: Reed Washburn MDReport Verified Date/Time: 09/17/2022 09:47:35 Reading Location: [facility] Reading Room [address] [place] [address] Tissue Exam 2022-06-15 15:28:38 Test Item Value Reference Range Interpretation Comme nts Case Report (test code = 104) Surgical Pathology Report Case: [id number] Authorizing Provider: Pauline Cloud MD Collected: 06/09/2022 12:39 PM Ordering Location: [facility] Received: 06/09/2022 04:10 PM SERVICES Pathologist: Amor Echols MD Specimen: Tumor, Cavernoma DIAGNOSIS (test code = 3220) t0jnoTBgIPZud4ciARDptWPnBcLdJlRwIvYuHy pc dWMxIHtccnRmMVxlcGljOTYwMlxhbnNpXHNwbHRw [file] dGVyeTcyMFxzYmtwYWdlXHBnbmNvbnRccGduZGVj XHBsYWluXHBsYWluXGYwXGZzMjRccWxcbGFuZzEw SePvmNablVptCWtqSpAvYYKgSSghW4omVaOxEiZt Yqt1AIAmwLNyXBYmFyu3IMAacHTnNIATfOivvP7p SZBytLgxqH3ihIV6FWGoscTcuKMCjX8dMWXKtH9a VwX3GBLxOwr1IHI9EnVggTIqjV1= COMMENT (test code = 3359) t7shrBNzTSAtkMI2ZmFrDMRpm9tjy8UaoNOjfZRx KEuzmCRcihElbr58pZX1jU67AD1lQTJeShR8LLNh ybL6Dud1HDJxNJDynDNsL588d7fjg2uytbGfkYU3 bVfoWVEtyzljMfR7TDtnJTGoenzaGFq8UIfmNLFl lUK2QPZdgJJjH9KqDXBgHM3ikpb1ITP3DKucHCHi SaB7NIPdhZKgIVYrjXthHTtwl229GJZ5GdLlLEBb feJypQxbmL5sJaItZPEFiNFem7FekqPryXKldE3e mE9yroVicnD9jNC7EE1aYKKqbeQqC7KpDZBckBPc Bm4wdUZ8pW5rTXHeLSQuIN9tPpMkX49etQV5xDPu YKY9pGSrHEGtZ4Y4FYHby73fRcGmG33sezZgAQVs r73tt0m2lQCagAKflC7aRALavmAdkqoyKMvsFULk G85mfNUtHJQfInRzUBVkHPFvcRgdqRGHn7udd16e szCyCJUpLDkyQMB5xOWlP4TdETZfjcQkKHokYQQr XHBhcn0= CPT Code(s) (test code = 6337) f8elaLTlXDTzyWW5EsLsPUVuz2gox3KraJGw cGFy FQreyHDnwzNmhq01nJB2zE17HJ3hHYLqMeO8FCDs pwF4Tfk7MVXwVDIhyHNsN957s6ijd9ldwaVdtUO6 dInzYCGqyhmwAdV9OTupQHUoievcPVe0PSlrDPUk yGY1AYQvsAXsE7YiSOSxZM1hpkt5ZXV4ACicFBXk BvK9ZZSllBJmOIWlgXpwDJqqe458INS0QrIdWZPq wtJlrEpdzD4sFwCvZQH3VYWjDpdpOWpmQMTkfSVr fQ== CLINICAL HISTORY (test code = 0898) j1ojoNBcTFZotHE7EpQnASFnd5bew7X sdHBncGFy ZUkwbHRokzWjar72tFL1wI16WO2kTAJtWwW7DJWi azS2Oqm5HDAqRAXenTUpC296r3ocj6kfyrXmsMC3 OGPaAFQvA5MzDV1rKTJzsZDcJ73ahZUtZKL7QSUl AWFppUSsJBVzPQC4OPMtwQVsT5tmAVHsIQ1snuec KFjbMLmcSJMpzCM1BTHqtBUzN6UuPERvJOouGIAd vzq7TeDeVa0hrYItmPnlTQigVEGtDQRtDDlenREa hxsvqsKiNIOfPEJUTKPubd7vpSXumQNeXg6iwOD5 qI7bFOmfLFA1 GROSS DESCRIPTION (test code = p2pkyUIhFCDpnSGPEHElL2agweOjGQPuiUEv [facility] [id number]) dgeqVGozFN8jJN8xaVkxqPTyoUVbUE6HLFUjIrLe CENfqMVengVnVdKlOVWmeAQruGS4FACyAS5cvuwb JEmbQJcrVOUdkqE1IFSqsTMdD9EkAQDpKH9lsvpv CRW5ACvmqJ3xtjNOAybiUf0lcMAepWgbYyPxDkBc QHUlUSWhGUGrxUzsFDQjJPw6lO4KBvrnAUL5XIUS LgynIGCkUQ8Is8mhYWEpkINuDOH9PQausHFcMQLk EVHgIPz4JFLgWJtzrULwDZ2sfFszVhoekVvig7Ae kFUmSZudQBVwFZGlDBmjIGMaQE3BSsKtJEk0KABj OlnzRBf2UQc0DB2CDfMrXYEyFcKrYjT8UQEbCJw4 LBxuLB8AGIE2XVB7GsZ2NSI5PVCeLTXrCPAsQuGv PCFsJJPiIVgrMBzllVNcLQ5fcVokkKFrktRTAqFC kQ3bzn0waTGnQO4TZNUwlOZUNAC8BP9yISIPSfij uGRtQXJenTnbTLpjoB3tCP1BRNg6aoXvWONuAiKz YhKwMJy0OPQsRcRoo5rtsIFeFTupLIV5rUZrICRe BTKiRDBeZB28R9YhvxScHDsxGQSSABBdASWnwJWi w5ZmDRoaEVSss8eiT2ydJHDmws3sdu91qoXqvaYd O5NuHNFaz02nhDC1zLXwkAVnQtJhJ43wosAmRIZu PIN3WDCqKHJ4KXIrVhNdoKcpDMYFoMKaz5XoQ3sl XM5ftEGnv0RwsCr2vYGcOStkQXNphV9ouA6rEOQg XHBhciANClxwYXIgDQpLYXRoZXJpbmUgTmFqZXJh CTPXQRCFrQDcIF50HLcrvOmelL1qBPDfR68ju0GK q0VxMCQdZCzmi1womVbft4BuxULjPHadPTIxoTMp TThpdR3qOkPot2sjrNh5QSzarwL1WKHzcq6LJsyp xK2qJlBcv0zbbRx8DFZVOyzncvV7n9tkwQgna7Gh gGDtQD2LJt8= MICROSCOPIC DESCRIPTION (test code = d7vyhOQvXKNvsXW4KrYpJRUks1iwb0 BsdHBncGFy 3371) YKdwkPSkncOdlr66qHG6aM46XL8mOSWqJnX3IUPl jeP6Rnx2RZBpFXOzgNJkY467c8dgi3kajhOylQU6 dZurHNKhjjlkIjD6LLtuKVQkfchnFEe4WRjiOZWm nRV7ZRXhfFIwB0IyHIKiCD2xmix7BOY5DUcdSZUn OgY7EGXwyYKnQUEhvVzgWHetd018MUS4ZwEbNWHc mnMgeNaagB5sNqDcLNPQSOZym7NsCHAjgFYgcH== SPECIAL STUDIES (test code = 3376) b8sfeZBvYKBdrWL4NvHcWPExb8vmx8Hv dHBncGFy [file] cn0= Gross assessment was performed at (test [facility] enter, code = 2777) Department of Pathology, [address] [place] [address], Technical component was performed at [facility] er, (test code = 2778) Department of Pathology, [address] [place] [address] 34703, Professional component was performed at [facility] enter, (test code = 2779) Department of Pathology, [address] [place] [address] 0[address], [facility] [id number] 15:28:38 Test Item Value Reference Range Interpretation Comments Case Report (test code Surgical Pathology = 104) Report Case: [id number] Authorizing Provider: Pauline Cloud MD Collected: 06/09/2022 12:39 PM Ordering Location: [facility] Received: 06/09/2022 04:10 PM SERVICES Pathologist: Amor Echols MD Specimen: Tumor, Cavernoma DIAGNOSIS (test code = q7dwmDZaSICao6nwHVDllYU 3220) uZzEwMzNcZnRuYmpcdWMxIH tccnRmMVxlcGljOTYwMlxhb uQwHXRzpYOwD1DllskpGDqq EA7qZH8zvGalsMQrcIIjXVT hQoNgr7ghh957vWKgd5sgTB CYsmscxBb7uGkoB39co0L6H zjxF28biTUhLRH9AVDkYEWf uLWzVHOkDEJ2GYWmuUSpX2z mVNDsLC2nudhtZRfoDHomOY MkeXN4RTPhmXMwF3HlIGQmI PmwGSMjzll2XiCoGe9bsCRf eTcyMFxwYXJkXHBsYWluXGZ xIpCuMnLarU6vTZNnQNTkgf 2akXDxMrGolSHkz8pfdpdft ZKwDGCrLeHvCCNjb3D8jMSo UE8juJLoox4vdEytnoysb9L jHQVawJ7mmyAmiOAzpJxeqe BmGUwxc1KqIPzeTXJlPJ2kr TxlKARgDO3jKFHhV9zvkT0a inr7NuKdEITmGyO8LMBjigF 0Psj9PBKzHHzkp0kuw0NsOS AgHIu3bJcgRaEuTOQgm3nun yBcZmNoYXJzZXQwIEFyaWFs O237h6dgs4ltieAnfPL5UTV wUZL8NYgwbuDlcyR7UAtyzQ DfLnZ6BWtidsLtMIckiaUvr mDmTdq5NTRaE683RQM5dOqg k8kyOEH5VSRlZLBcAfHjOd4 pcCTgQ013LNHhNXTOXSLkgG t6XZLyvlYinbVxzQAVj631I 447f7ciWGNgvsBtkZbHbizy u8lvM677CPKwsLQziaZnPwN gWLZclWTivWL1WERwOK8end mvYRuoBSodPDYtpcD7HXCxv MAuT9PiEEZrGB7uajxuSEV1 NRowCTFhSYU0EcNjSSNsd6B bzle6XlPmwr9cvs31YXJ6w1 AtvUocZNJ3QOQ9AcOlGh5xx UFbGNHiTS6gUxAmhKMyFQBy cd48hHteEGcxOFC8DIRfusO oi5Qzl0qgCdNsrxNwS1ecH6 JyZHJoZWFkXHBnYnJkcmZvb 3Cel9SlwPTjwIu8o5oyIVJt VPDmfAlhn0lhDZO4JZIrpGT iW9njrD4jYLOnTC7tqctvh1 iyUWjmTQbrOJFzdOT7coS7D RCqgVAtL8NhzU7wJSWkUZbq BCWlmep7GsOiVg1lbBVkoNp yMFxzYmtwYWdlXHBnbmNvbn RccGduZGVjXHBsYWluXHBsY WluXGYwXGZzMjRccWxcbGFu ZzEwMzNcaGljaFxmMVxkYmN vVWLnSFgfA3qbSyQuWnJcQz x9LAYdkMXqXWBfAqi8XOSka RYbYUTSmIsvxC6wBFBwsVaq kQ9liDO1IOHtbhAvyKONfL4 pFZENuF5eBnK8GZVlRrm9RS G4PrEeoAGngF8= COMMENT (test code = p2eveSHsJXVyyZK3AjEwJZY 3359) np1osw4RwnLAhhQCcWHdnpG XwwvDden39pSL1gD00JE5vX SYuAlF2GDJbblF9Gjq7UHGd ZKApgGHuS099x3npi1yylhQ xoMM7uJvaEWYrdvxmGuK7ZK pgMUUpzbtbFTh1VXznPBCrr MH8LJRmpUXtN0GxJBYpUI0v aun3FBS2JGapWECaYaQ1CDR nlKKdMECqrWjrOBtvp905OX E9YxIvHYNoymIxqIrfxA1uE rAoYLSWwYEzs4GnyiUirUUq oE3cnB2ggeEqlxZ7lAE1MA5 aDIErtpFvM9QjOFBnfDOnVm 5yaLK5iX6pHDFaZBMmFO9oY oDcX61yfIY8nBLqPCD7kQCt GXFbO6J7NLTsn75uGbMnF65 axqDbVFQtr42iz9f5fYKjnI WksY1tWEYifaMnbcfuKUvhN KYqD16ooFOjTVXhHzZaYCIn VYLmfBvozSOJn0dug37omfU xSHKqRYblFOJ7cQTsH6ScYJ BhbmQgYWdyZWUuXHBhcn0= CPT Code(s) (test code w1ogbOYpSDGktUD3WeJvJUC = 3357) mk3jto0HqmSYpwAEvPCrnmE SbqcKfdv69hVQ0gI85AB4aN UEpXhH6KYJppuN9Bqk2EBRr DJVuwDWoX318c8ugk4fvqzU opVD5zQszNSAefzmdAyX4JL clETQotuwvIGk3QFsgGEGks WS2JTGcwAMmW9FoOBApQP4m xqr2NWC7VZhhHPAcIbL3VGV blWRwCMHtmBpoHBrdw573JX P6BwTjPQXuyvIhvDsjzA9eT zFiGYS5DQTlLwihAXibFUMn cGFyfQ== CLINICAL HISTORY (test s3lreLZzPOGqeBO4UqQeBYG code = 3356) lz1zer3TxqGCarOPwGNjpnK AsktTpwt81jEG1wX24YI0kV YCuJvO5KCWsrrT6Ycx4IHFk YIIzaPCpS427p4tcz8qhafT vuKN1AGIwNPEkQ4IjOZ7vDU IatJQaM62zqEPmWHH8GBPkW LIgyNMiCHGcGMM2RJYjdFPh M0ocYVIcKA3rnaghOJlyMKq eLQErmTT0HEMhlTPhX3LjJE QrZLfpJPCfhyy0YiHnYn9va GVyeTcyMFxwYXJkXHJpMVxw bGFpblxmczIwXGNmMSBDYXZ jjd9wsLEomHQgXh8nvVB4bK 3uAJqrAUH3 GROSS DESCRIPTION q0hwzLNnYZUykGQWFXBvF5k (test code = kcfPuISEefBUwU6FsiguaZN [id number]) cpLI1hKD8dvEgnbZOifPNpM Q5VBMXoJbUaKSUxrBMzexUi EmHhWBMrgOGaqFK4DVBgHZ2 zihafAHwmDSeoKFYmigT9AB VtqKMmN4OxSXJaZI9klrdnX SY2XGbapC8wumYMBssqSm0q dHRibHtcZjFcZmNoYXJzZXQ vQICrbNenJWCkKXq2eV5THu jmRTF7WRPQCwltEUIuGW9Fq 1ssNEBxuDKlEHV8VZwxqMRb LOBvCPMuBWo2TVMvKKxnhFB mOQ2slBxpEoroiMyls8SpoT BcXGlkIDUxMDAyIFxcZGIgI N3WTbXpDGe2OYKbBzrrZTq8 MNx5CK1NMvQxQNTcKrJeDmS 8HZGwPCs2GOxfHA8FYBD7GE M8OfS7MON9UONaYQLdUIAdU iBcXGYgQXJpYWwgXFxmbCBc UD9aoUlliFDmiqUAJyQDzI1 bgu8kuOWzUQ7CDVBeiZMNIJ D6FT0qNIVVLhyyvITmPQNni OjcGLiudP6nHL9SFVj1xsRp IIDmIsOyRnCcIQv4NUBmRbF hc2fovZWuAWykXBA2iWIlLB GeGPEfVGQoPX85R3IsnxLsC LywXFDSAIWkDBNacOAig5Ed ONbyLZCzd0luN7xiIKBeqz7 ldk50ftIdtaNoD6OfQLKrp7 5pdLS4uYVyeLMjHpGsR36zj pKcKDQhNBX4OYMwXQV8MHWn JhSovEblCTSOaVVcu4VpB0z iZE9osQYpj6CrdZv1nIOmTJ exUSTedR8ycJ4iWYYyFWUym iANClxwYXIgDQpLYXRoZXJp bmUgTmFqZXJhLCBQQSBTdHV kEC51HMyucDqmzL0hJCFhV3 0mo1BZp4QuITDjDWuha6mqe Jzhj4MqoULhWTczDCUwvMZb BFregE2bLiAev1kaeAw2OEs bosH3VNEtvd0TGpvieJ6qPh Nep1awwAk8OJMZWqojexX6l 9ixlRsvc9ZbtGEcYO1ORj3= MICROSCOPIC k3eovTGwCOMadPB4OiJeONH DESCRIPTION (test code zy3doa9CkwPEjtULvPIeozX = 3371) GrndKszp61tDE6pC67LI3mC WYsYlV1BTDpmlF6Tol3LAIo GZMszGPoJ071d3jqp4swasR rsZM7pJjrCDKmckjwIkM2WU ntZBZsgvwoGBm4YAuhSYJhn XK2DSQviEQtW9BeYELzUT9b ckd9AXB2KXvyYLLnZaR5JHH ydJDcHVIbrXgiTNtdk911PB K4SmWuSFWiqeQrbXsetT2dH gQvEMUCMGTgs0VnZKGerOXt fQ== SPECIAL STUDIES (test q9yleHIfVODnlVQ2FrXsQOL code = 3376) jr4zyz3NbxLMixTOoPXygvO KnxsWsko72jNL4dQ42GL7fJ PNbEhF4OYMdvvX9Rhi8BHYk STScnKDdI059PQGjMYIfeUp knpk1nL41AZLpbT6ptMDaGW cvsdAwCNamicTcquNtGgu3V HO6kZxeUBZmdntwWtP4IDvw TPWwxjgcMGu7DTvxUCYzfAH 8HCTkzIKnV1LnUHFlVQ8axe q4IAH8XYsbIBQvCuY5HRQnh KPlNMPmhYaeDEzzk020APX3 QnGvSYPoraIpuHjozY4rBzW lYpBeTvwuKbQaNNMPKro6VJ 9qPJXbVowvpKMwboEvlJ50R KUpOZcfRVtpa8GyMhRjPG9r whVunD5biIodJQBkp2CslVT ulAVuCEIxfeZMoAUsuK94MV KbxzK3DHUha28fa5KnxIrbx oNpHZAsQUpuD5a9RJSrSCDa CWS6c8Kan3BmjC1sbY4ngAk dvT5glQTueAS1sckzb5Tgw9 IzD4vqhAIplYPmkhQrGJUnv kbpUKTlG15sfNDfdSGGsUsc WKOwDNdsxWspWQK7YPBKqr0 ts1HzWEKbdo54heJjr5OepS v5KBOxe470wg5synI3UYGkC ZR0EJw8HTAyRRQvgT9qZwE2 eQXnHKCsFWN1REW4ILAdy1B 9QK7xHPVzYIDnADTaxnFgm8 ckr8prQSAoSUP4rsKphJ7jR 0NwXUIyk2QtfOxjXAQcsOsx xhOeEXItqMBsSLPvsV12ETT pnINbvGErNGMpNXA2EDncrN 0nDpXIybElkq0dnQGes7Kjy Wg5PZVbexYzfyZwAKNsmdPk U76jxBBunPFxr1znmaZtphC agDYkfFXiGNGpUTG6TLy2WM BeCGnhROMwHYqaVFNkPS3om S7lmPtsiE6gmJVjjDR5lahp gPJbyK8uW2ByIGTsw2Gegom di7ZyHKGaypQijd2sOLKotI IQZKtyu6FpN9YeHKr8z7Rmv AasWSdpBRn6IvKgXITwqZUw lRYWMA86ZNCmXBLrlJsnbC3 gjQZWPHNcqyB7d2V3HVkoWR WkDIs0XHoalsGtDFQrpN6zS XBcHA5gQBd4rwQlQBIxt2Jg XI6gWAKmeMJkFLM8EFVct1E xT4Akv7UmTITaUNEsnu3sdg InMiVVwHQvXBXmro55QHDlB R2kO8xbONQsQWWnkjCrmDMb k9JjUDYsoOA9cJWoID8FOkE Yb24kWIZoMQXDlbYyYFYtvS slnMP8emN8jN4eFoQPwVDyZ rDXAMiomkZhVGCvah8svzVf YOCcAKWnc8WqhJSgcRCofoP tP6Bmc0DgCUHrqe28BSjohW Mnuu88TQ4uE7Mog2XfmL0uR LvlHXPzp6KyyZZxhLElKONn p7ImM4wsrmgeZLtrnSAxcC4 qSKQaLXd9ESTsk3AeFOWab8 QgYmUgcmVnYXJkZWQgYXMga V37FNR3lEwuuZafmtSjZC6o ZBEeqnGqIJQvXGNrkT1eYGg ezfVaBLCysxX4s0G2IRrhSK OjpnMpYrtkGDH0cbLywzP4v JQpV1lhzinyOHvdQWIlj6Ix zZ9rtXPRqFDqv0WdnMSbcYZ XrWKrUQ4pqjPlWH7kPHT5UQ ghMXPTYPSaKTtbSFMbREU4F KilMgyzXJU2adLvPOKqt8Wb XRdfR6jmF97urLoutZf4pSA tkJuxuJWigCYaDWOdqkV7k4 U2QSMof0OahleuKYZdpr4= Gross assessment was [facility] performed at ([facility], code = 2777) Department of Pathology, [address] [place] [id number], [address] [facility] was performed at ([facility], code = 2778) Department of Pathology, [address] [place] [id number], Professional component [facility] was performed at ([facility], code = 2779) Department of Pathology, [address] [place] [id number], [facility] [id number] 15:28:38Surgical Pathology Report Case: [id number] Authorizing Provider: Pauline Cloud MD Collected: 06/09/2022 12:39 PM Ordering Location: [facility] Received: 06/09/2022 04:10 PM SERVICES Pathologist: Amor Echols MD Specimen: Tumor, Cavernoma Brain, "cavernoma," excision: - Vascular malformation; see comment Signing Pathologist Direct Phone Line: [phone] signed by Amor Echols MD on 06/15/2022 at 3:28 PMThe overall findings is that of a vascular malformation and can be compatible with a cavernoma. Correlation with imaging findings is recommended. Dr. Manjula Post reviewed the case and agree.[id number], 65938Jzqhrvkuq malformation A. Tumor.Received fresh labeled with the patient's name, MRN and "tumor" is a single amos-brown irregular soft tissue fragment (0.8 x 0.4 x 0.3 cm). The specimen is submitted in toto in A1.GIOVANY Beltran StudentPerformed- VVG: No definitive internal elastic lamina in the vesselsThe interpretation of this case included the use of immunohistochemistry or special stains.Control Slides Examined: In-house known positive controls were evaluated along with the test tissue. These control slides run alongside of the patients sample show appropriate staining. Internal positive and negative controls when available are evaluated Immunohistochemistry technical testing was performed at [facility], Pathology Laboratory where itwas developed and [...] to perform high complexity clinical laboratory testing.[facility], Department of Pathology, [address] [place] [id number], [facility], Department of Pathology, [address] [place] [address], Tel [employer] [facility], Department of Pathology, [address] [place] [id number], RG, BRAIN, WITHOUT CONTRAST 2022-06-14 15:17:00 [facility] : 1990 Sex: FFINAL REPORT CT, BRAIN, WITHOUT CONTRAST CLINICAL INDICATION: Craniotomy, post-op COMPARISON: None TECHNIQUE: Noncontrast axial CT imaging of the brain and skull. DOSE REDUCTION: Dose modulation, iterative reconstruction, and/or weight-based adjustment of the mA/kV was utilized toreduce the radiation dose to as low as reasonably achievable. FINDINGS:Prior right frontal craniotomy . There is small volume subjacent extra-axial hematoma decreased subjacent. Minimal blood products are present within the right frontal lobe resection cavity. No hydrocephalus. Orbits are within normallimits. No obstructive paranasal sinus disease. 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 Trace residual extra- axial blood products adjacent to the craniotomy and within the resection bed remain. If there is persistent clinical concern for intracranial pathology, MR examination is recommended for further characterization. Signed: Negar Brizuela MDReport Verified Date/Time: 06/14/2022 15:17:20 HCG, QUANTITATIVE, 2022-06-14 13:41:24 Test Item Value Reference Range Interpretation Comments GONADOTROPIN, CHORIONIC (HCG) QUANT < mIU/mL 0-10 (BEAKER) (test code = 649) Non- Females: <10 mIU/mL Females: Gestation Age Reference Range(mIU/mL) 0.2-1 Week 5-50 1-2 Weeks 50-500 2-3 Weeks 100-5,000 3-4 Weeks 500-10,000 4-5 Weeks 1,000-50,000 5-6 Weeks 10,000-100,000 6-8 Weeks 15,000- 200,000 2-3 Months 10,000-100,000 Web Content Director ID - AAHAMIDCOMPREHENSIVE METABOLIC [id number] 13:24:45 Test Item Value Reference Range Interpretation Comments TOTAL PROTEIN 7.4 gm/dL 6.0-8.3 (BEAKER) (test code = 770) ALBUMIN (BEAKER) 3.7 g/dL 3.5-5.0 (test code = 1145) ALKALINE 104 U/L 40-150 PHOSPHATASE (BEAKER) (test code = 346) BILIRUBIN TOTAL 0.3 mg/dL 0.2-1.2 (BEAKER) (test code = 377) SODIUM (BEAKER) 137 meq/L 136-145 (test code = 381) POTASSIUM (BEAKER) 4.0 meq/L 3.5-5.1 (test code = 379) CHLORIDE (BEAKER) 101 meq/L 98-107 (test code = 382) CO2 (BEAKER) (test 28 meq/L 22-29 code = 355) BLOOD UREA 17 mg/dL 7-21 NITROGEN (BEAKER) (test code = 354) CREATININE 0.78 mg/dL 0.57-1.25 (BEAKER) (test code = 358) GLUCOSE RANDOM 88 mg/dL 70-105 (BEAKER) (test code = 652) CALCIUM (BEAKER) 9.2 mg/dL 8.4-10.2 (test code = 697) AST (SGOT) 40 U/L 5-34 H (BEAKER) (test code = 353) ALT (SGPT) 66 U/L 6-55 H (BEAKER) (test code = 347) EGFR (BEAKER) 102 Interpretatio n of eGFR (test code = 1092) mL/min/1.[address] age Description sq m Result G1 Heidi l or high >=90 G2 Mildly decreased 60-89 G3a Mildl y to moderately 45-5 9 G3b Moderately to s everely 30-44 G4 Severl y decreased 15-29 G5 Kidney failure <15Reported eGF R is based on the CKD-EPI 2020 equation that d oes not use a race coefficientEsti mated GFR is not as accur ate as Creatinine Lynn juanis in predicting glom erular filtration rate . Estimated GFR is not appl icable for dialysis patien ts Web Content Director ID - AAHAMIDPROTHROMBIN TIME/[id number] 13:22:59 Test Item Value Reference Range Interpretation Comments PROTIME (BEAKER) (test code = 13.5 seconds 11.9-14.2 759) INR (BEAKER) (test code = 370) 1.05 <=5.90 RECOMMENDED COUMADIN/WARFARIN INR THERAPY RANGESSTANDARD DOSE: 2.0 - 3.0 Includes: PROPHYLAXIS for venous thrombosis, systemic embolization; TREATMENT for venous thrombosis and/or pulmonary embolus.HIGH RISK: Target INR is 2.5-3.5 for patients with mechanical heart valves.CBC W/PLT COUNT & AUTO [id number] 13:06:40 Test Item Value Reference Range Interpretation Comments WHITE BLOOD CELL COUNT (BEAKER) 10.2 K/ L 3.5-10.5 (test code = 775) RED BLOOD CELL COUNT (BEAKER) 4.84 M/ L 3.93-5.22 (test code = 761) HEMOGLOBIN (BEAKER) (test code = 10.7 GM/DL 11.2-15.7 L 410) HEMATOCRIT (BEAKER) (test code = 35.3 % 34.1-44.9 411) MEAN CORPUSCULAR VOLUME (BEAKER) 73 fL 79-95 L (test code = 753) MEAN CORPUSCULAR HEMOGLOBIN 22.1 pg 25.6-32.2 L (BEAKER) (test code = 751) MEAN CORPUSCULAR HEMOGLOBIN CONC 30.3 GM/DL 32.2-35.5 L (BEAKER) (test code = 752) RED CELL DISTRIBUTION WIDTH 17.1 % 11.7-14.4 H (BEAKER) (test code = 412) PLATELET COUNT (BEAKER) (test 349 K/CU MM 150-450 code = 756) MEAN PLATELET VOLUME (BEAKER) 10.7 fL 9.4-12.3 (test code = 754) NUCLEATED RED BLOOD CELLS 0 /100 WBC 0-0 (BEAKER) (test code = 413) NEUTROPHILS RELATIVE PERCENT 61 % (BEAKER) (test code = 429) LYMPHOCYTES RELATIVE PERCENT 28 % (BEAKER) (test code = 430) MONOCYTES RELATIVE PERCENT 8 % (BEAKER) (test code = 431) EOSINOPHILS RELATIVE PERCENT 2 % (BEAKER) (test code = 432) BASOPHILS RELATIVE PERCENT 0 % (BEAKER) (test code = 437) NEUTROPHILS ABSOLUTE COUNT 6.18 K/ L 1.56-6.13 H (BEAKER) (test code = 670) LYMPHOCYTES ABSOLUTE COUNT 2.88 K/ L 1.18-3.74 (BEAKER) (test code = 414) MONOCYTES ABSOLUTE COUNT (BEAKER) 0.83 K/ L 0.24-0.36 H (test code = 415) EOSINOPHILS ABSOLUTE COUNT 0.22 K/ L 0.04-0.36 (BEAKER) (test code = 416) BASOPHILS ABSOLUTE COUNT (BEAKER) 0.03 K/ L 0.01-0.08 (test code = 417) IMMATURE GRANULOCYTES-RELATIVE 0.50 % 0.00-1.00 PERCENT (BEAKER) (test code = 2801) IRON, TIBC, % SAT. (WITHOUT FERRITIN)2022-06-11 06:25:49 Test Item Value Reference Range Interpretation Comments IRON (BEAKER) (test code = 547) 26.0 ug/dL 40.0-160.0 L TOTAL IRON BINDING CAPACITY 313 ug/dL 250-450 (BEAKER) (test code = 769) IRON % SATURATION (2) (BEAKER) 8 % 20-55 L (test code = 2590) Web Content Director ID - [id number] 06:25:26 Test Item Value Reference Range Interpretation Comments FERRITIN (BEAKER) (test code = 51.93 ng/mL 5.00-275.00 361) Web Content Director ID - [id number] 04:28:37 Test Item Value Reference Range Interpretation Comments PHOSPHORUS (BEAKER) (test code = 1.7 mg/dL 2.3-4.7 L 604) Web Content Director ID - MARCOBASIC METABOLIC [id number] 04:28:36 Test Item Value Reference Range Interpretation Comments SODIUM (BEAKER) 137 meq/L 136-145 (test code = 381) POTASSIUM 4.1 meq/L 3.5-5.1 (BEAKER) (test code = 379) CHLORIDE (BEAKER) 108 meq/L 98-107 H (test code = 382) CO2 (BEAKER) 22 meq/L 22-29 (test code = 355) BLOOD UREA 8 mg/dL 7-21 NITROGEN (BEAKER) (test code = 354) CREATININE 0.70 mg/dL 0.57-1.25 (BEAKER) (test code = 358) GLUCOSE RANDOM 128 mg/dL 70-105 H (BEAKER) (test code = 652) CALCIUM (BEAKER) 8.3 mg/dL 8.4-10.2 L (test code = 697) EGFR (BEAKER) 116 Interpretatio n of eGFR (test code = mL/min/1.73 values Stage De scription 1092) sq m Result G1 Heidi l or high >=90 G2 Mildly decreased 60-89 G3a Mildl y to moderately 45-5 9 G3b Moderately to s everely 30-44 G4 Severl y decreased 15-29 G5 Kidney failure <15Reported eGF R is based on the CKD-EPI 2020 equation that d oes not use a race coefficientEsti mated GFR is not as accur ate as Creatinine Lynn juanis in predicting glom erular filtration rate . Estimated GFR is not appl icable for dialysis patien ts Web Content Director ID - [id number] 04:28:36 Test Item Value Reference Range Interpretation Comments MAGNESIUM (BEAKER) (test code = 2.5 mg/dL 1.6-2.6 627) Web Content Director ID - MARCOCBC (HEMOGRAM ONLY)2022-06-10 03:21:13 Test Item Value Reference Range Interpretation Comments WHITE BLOOD CELL COUNT (BEAKER) 16.6 K/ L 3.5-10.5 H (test code = 775) RED BLOOD CELL COUNT (BEAKER) 4.20 M/ L 3.93-5.22 (test code = 761) HEMOGLOBIN (BEAKER) (test code = 9.3 GM/DL 11.2-15.7 L 410) HEMATOCRIT (BEAKER) (test code = 30.4 % 34.1-44.9 L 411) MEAN CORPUSCULAR VOLUME (BEAKER) 72 fL 79-95 L (test code = 753) MEAN CORPUSCULAR HEMOGLOBIN 22.1 pg 25.6-32.2 L (BEAKER) (test code = 751) MEAN CORPUSCULAR HEMOGLOBIN CONC 30.6 GM/DL 32.2-35.5 L (BEAKER) (test code = 752) RED CELL DISTRIBUTION WIDTH 17.1 % 11.7-14.4 H (BEAKER) (test code = 412) PLATELET COUNT (BEAKER) (test 293 K/CU MM 150-450 code = 756) MEAN PLATELET VOLUME (BEAKER) 11.1 fL 9.4-12.3 (test code = 754) NUCLEATED RED BLOOD CELLS 0 /100 WBC 0-0 (BEAKER) (test code = 413) CT, BRAIN, WITHOUT [id number] 22:56:00 [facility] : 1990 Sex: FFINAL REPORT EXAM/TECHNIQUE: Noncontrast CT of the head. Dose modulation, iterative reconstruction, and/or weight based adjustment of the mA/kV was utilized to reduce the radiationdose to as low as reasonably achievable. INDICATION: Craniotomy. COMPARISON: MRI brain from 06/08/2022. FINDINGS: Status post right frontotemporal craniotomy and resection of right frontal lesion. Thereis a small amount of subarachnoid blood near the surgical site as well as a small extra-axial blood,fluid, and air collection measuring 3 mm. While there is mild invagination of air along the anteriorfalx, there does not appear to be maria d tension pneumocephalus. The ventricles are normal in morphology. Basal and suprasellar cisterns are preserved. The tonsils are normally positioned. No territorial christy-white differentiation loss is identified. Orbits are normal. Paranasal sinuses are clear. Mastoid air cells are clear. No acute osseous processes or suspicious osseous lesion. Midline structures are normal. Visualized face and neck are unremarkable. Impression: Status post right frontotemporal craniotomy and resection of right frontal mass with small volume of postoperative subarachnoid and extra-axial blood products as well as small volume pneumocephalus. Signed: Kwabena Wilder MDReport Verif ied Date/Time: 06/09/2022 22:56:35 COMPREHENSIVE METABOLIC [id number] 21:36:18 Test Item Value Reference Range Interpretation Comments TOTAL PROTEIN 6.6 gm/dL 6.0-8.3 (BEAKER) (test code = 770) ALBUMIN (BEAKER) 3.5 g/dL 3.5-5.0 (test code = 1145) ALKALINE 87 U/L 40-150 PHOSPHATASE (BEAKER) (test code = 346) BILIRUBIN TOTAL 0.3 mg/dL 0.2-1.2 (BEAKER) (test code = 377) SODIUM (BEAKER) 139 meq/L 136-145 (test code = 381) POTASSIUM (BEAKER) 4.0 meq/L 3.5-5.1 (test code = 379) CHLORIDE (BEAKER) 109 meq/L 98-107 H (test code = 382) CO2 (BEAKER) (test 20 meq/L 22-29 L code = 355) BLOOD UREA 11 mg/dL 7-21 NITROGEN (BEAKER) (test code = 354) CREATININE 0.75 mg/dL 0.57-1.25 (BEAKER) (test code = 358) GLUCOSE RANDOM 152 mg/dL 70-105 H (BEAKER) (test code = 652) CALCIUM (BEAKER) 8.1 mg/dL 8.4-10.2 L (test code = 697) AST (SGOT) 32 U/L 5-34 (BEAKER) (test code = 353) ALT (SGPT) 25 U/L 6-55 (BEAKER) (test code = 347) EGFR (BEAKER) 107 Interpretatio n of eGFR (test code = 1092) mL/min/1.[address] age Description sq m Result G1 Heidi l or high >=90 G2 Mildly decreased 60-89 G3a Mildl y to moderately 45-5 9 G3b Moderately to s everely 30-44 G4 Severl y decreased 15-29 G5 Kidney failure <15Reported eGF R is based on the CKD-EPI 2020 equation that d oes not use a race coefficientEsti mated GFR is not as accur ate as Creatinine Lynn juanis in predicting glom erular filtration rate . Estimated GFR is not appl icable for dialysis patien ts Web Content Director ID - [id number] 21:32:53 Test Item Value Reference Range Interpretation Comments PHOSPHORUS (BEAKER) (test code = 1.7 mg/dL 2.3-4.7 L 604) Web Content Director ID - [id number] 21:32:52 Test Item Value Reference Range Interpretation Comments MAGNESIUM (BEAKER) (test code = 1.6 mg/dL 1.6-2.6 627) Web Content Director ID - [id number] 21:27:13 Test Item Value Reference Range Interpretation Comments PARTIAL THROMBOPLASTIN TIME 24.5 seconds 22.5-36.0 (BEAKER) (test code = 760) PROTHROMBIN TIME/[id number] 21:26:30 Test Item Value Reference Range Interpretation Comments PROTIME (BEAKER) (test code = 14.2 seconds 11.9-14.2 759) INR (BEAKER) (test code = 370) 1.17 <=5.90 RECOMMENDED COUMADIN/WARFARIN INR THERAPY RANGESSTANDARD DOSE: 2.0 - 3.0 Includes: PROPHYLAXIS for venous thrombosis, systemic embolization; TREATMENT for venous thrombosis and/or pulmonary embolus.HIGH RISK: Target INR is 2.5-3.5 for patients with mechanical heart valves.CBC (HEMOGRAM ONLY)2022-06-09 21:23:08 Test Item Value Reference Range Interpretation Comments WHITE BLOOD CELL COUNT (BEAKER) 16.1 K/ L 3.5-10.5 H (test code = 775) RED BLOOD CELL COUNT (BEAKER) 4.37 M/ L 3.93-5.22 (test code = 761) HEMOGLOBIN (BEAKER) (test code = 9.8 GM/DL 11.2-15.7 L 410) HEMATOCRIT (BEAKER) (test code = 32.1 % 34.1-44.9 L 411) MEAN CORPUSCULAR VOLUME (BEAKER) 74 fL 79-95 L (test code = 753) MEAN CORPUSCULAR HEMOGLOBIN 22.4 pg 25.6-32.2 L (BEAKER) (test code = 751) MEAN CORPUSCULAR HEMOGLOBIN CONC 30.5 GM/DL 32.2-35.5 L (BEAKER) (test code = 752) RED CELL DISTRIBUTION WIDTH 17.0 % 11.7-14.4 H (BEAKER) (test code = 412) PLATELET COUNT (BEAKER) (test 291 K/CU MM 150-450 code = 756) MEAN PLATELET VOLUME (BEAKER) 11.3 fL 9.4-12.3 (test code = 754) NUCLEATED RED BLOOD CELLS 0 /100 WBC 0-0 (BEAKER) (test code = 413) Blood gas, [id number] 20:54:32 Test Item Value Reference Range Interpretation Comments pH, Arterial (test code 7.37 7.35-7.45 = 2744-1) pCO2, Arterial (test 37 See_Comment [Autom ated code = 2018-) message] The system which generated this result transmitted reference range : 35 - 45 mm Hg. The reference range was not used to interpret this result as normal/abnormal . pO2, Arterial (test 91 See_Comment H [Automa pipo code = 2703-7) message] The system which generated this result transmitted reference range : 80 - 90 mm Hg. The reference range was not used to interpret this result as normal/abnormal . O2 Sat, Arterial (test 96.7 % 96.0-97.0 code = 2708-6) HCO3, Arterial (test 21 mmol/L 21-29 code = 1960-4) Base Excess, Arterial -3.8 mmol/L -2.0-3.0 L (test code = 1925-7) Patient Temperature 37.2 (test code = 8310-5) FIO2 (test code = 1819) 21 Lab Interpretation Abnormal (test code = 60073-5) [facility] [id number] 20:54:32 Test Item Value Reference Range Interpretation Comments pH, Arterial (test code 7.37 7.35-7.45 = 2744-1) pCO2, Arterial (test 37 See_Comment [Autom ated code = 2019) message] The system which generated this result transmitted reference range : 35 - 45 mm Hg. The reference range was not used to interpret this result as normal/abnormal . pO2, Arterial (test 91 See_Comment H [Automa pipo code = 2703-7) message] The system which generated this result transmitted reference range : 80 - 90 mm Hg. The reference range was not used to interpret this result as normal/abnormal . O2 Sat, Arterial (test 96.7 % 96.0-97.0 code = 2708-6) HCO3, Arterial (test 21 mmol/L 21-29 code = 1960-4) Base Excess, Arterial -3.8 mmol/L -2.0-3.0 L (test code = 1925-7) Patient Temperature 37.2 (test code = 8310-5) FIO2 (test code = 1819) 21 Lab Interpretation Abnormal (test code = 13607-9) [facility] gas, [id number] 20:54:32 Test Item Value Reference Range Interpretation Comments pH, Arterial (test code 7.37 7.35-7.45 = 2744-1) pCO2, Arterial (test 37 See_Comment [Autom ated code = 2018-11) message] The system which generated this result transmitted reference range : 35 - 45 mm Hg. The reference range was not used to interpret this result as normal/abnormal . pO2, Arterial (test 91 See_Comment H [Automa pipo code = 2703-7) message] The system which generated this result transmitted reference range : 80 - 90 mm Hg. The reference range was not used to interpret this result as normal/abnormal . O2 Sat, Arterial (test 96.7 % 96.0-97.0 code = 2708-6) HCO3, Arterial (test 21 mmol/L 21-29 code = 1960-4) Base Excess, Arterial -3.8 mmol/L -2.0-3.0 L (test code = 1925-7) Patient Temperature 37.2 (test code = 8310-5) FIO2 (test code = 1819) 21 Lab Interpretation Abnormal (test code = 98209-0) [facility] [id number] 20:54:32 Test Item Value Reference Range Interpretation Comments PH ARTERIAL (BEAKER) (test code = 7.37 7.35-7.45 383) PCO2 ARTERIAL (BEAKER) (test code 37 mm Hg 35-45 = 384) PO2 ARTERIAL (BEAKER) (test code 91 mm Hg 80-90 H = 385) O2 SATURATION ARTERIAL (BEAKER) 96.7 % 96.0-97.0 (test code = 386) HCO3 ARTERIAL (BEAKER) (test code 21 mmol/L 21-29 = 388) BASE EXCESS ARTERIAL (BEAKER) -3.8 mmol/L -2.0-3.0 L (test code = 387) PATIENT TEMPERATURE (BEAKER) 37.2 (test code = 1818) FIO2 (BEAKER) (test code = 1819) 21.0 HGB/HCT (H&H)-Stat [id number] 11:21:12 Test Item Value Reference Range Interpretation Comments Hemoglobin (test code = 10.7 See_Comment L [Au tomated message] 278-7) The system [employer] generated this result transmitted ref erence range: 12.0 - 1 5.0 GM/DL. The refe rence range was not u sed to interpret this result as normal/abnor mal. Hematocrit (test code = 31.0 % 36.0-45.0 L 4544-3) Lab Interpretation (test Abnormal code = 50891-2) [facility] [id number] 11:21:12 Test Item Value Reference Range Interpretation Comments Hemoglobin (test code = 10.7 See_Comment L [Au tomated message] 258-7) The system [employer] generated this result transmitted ref erence range: 12.0 - 1 5.0 GM/DL. The refe rence range was not u sed to interpret this result as normal/abnor mal. Hematocrit (test code = 31.0 % 36.0-45.0 L 4544-3) Lab Interpretation (test Abnormal code = 80642-4) [facility] [id number] 11:21:12 Test Item Value Reference Range Interpretation Comments Hemoglobin (test code = 10.7 See_Comment L [Au tomated message] 718-7) The system [employer] generated this result transmitted ref erence range: 12.0 - 1 5.0 GM/DL. The refe rence range was not u sed to interpret this result as normal/abnor mal. Hematocrit (test code = 31.0 % 36.0-45.0 L 4544-3) Lab Interpretation (test Abnormal code = 28387-1) [facility] [id number] 11:21:12 Test Item Value Reference Range Interpretation Comments Hemoglobin (test code = 10.7 See_Comment L [Au tomated message] 718-7) The system [employer] generated this result transmitted ref erence range: 12.0 - 1 5.0 GM/DL. The refe rence range was not u sed to interpret this result as normal/abnor mal. Hematocrit (test code = 31.0 % 36.0-45.0 L 4544-3) Lab Interpretation (test Abnormal code = 91695-9) [facility] - STAT [id number] 11:21:12 Test Item Value Reference Range Interpretation Comments HEMOGLOBIN (BEAKER) (test code = 10.7 GM/DL 12.0-15.0 L 410) HEMATOCRIT (BEAKER) (test code = 31.0 % 36.0-45.0 L 411) Blood gas, [id number] 11:21:07 Test Item Value Reference Range Interpretation Comments pH, Arterial (test code 7.43 7.35-7.45 = 2744-1) pCO2, Arterial (test 34 See_Comment L [Autom ated code = 2018-) message] The system which generated this result transmitted reference range : 35 - 45 mm Hg. The reference range was not used to interpret this result as normal/abnormal . pO2, Arterial (test 183 See_Comment H [Automa pipo code = 2703-7) message] The system which generated this result transmitted reference range : 80 - 90 mm Hg. The reference range was not used to interpret this result as normal/abnormal . O2 Sat, Arterial (test 99.3 % 96.0-97.0 H code = 2708-6) HCO3, Arterial (test 22 mmol/L 21-29 code = 1960-4) Base Excess, Arterial -2.0 mmol/L -2.0-3.0 (test code = 1925-7) Patient Temperature 36.0 (test code = 8310-5) FIO2 (test code = 1819) 50 Lab Interpretation Abnormal (test code = 03427-7) [id number]:21:07 Test Item Value Reference Range Interpretation Comments PH ARTERIAL (BEAKER) (test code = 7.43 7.35-7.45 383) PCO2 ARTERIAL (BEAKER) (test code 34 mm Hg 35-45 L = 384) PO2 ARTERIAL (BEAKER) (test code 183 mm Hg 80-90 H = 385) O2 SATURATION ARTERIAL (BEAKER) 99.3 % 96.0-97.0 H (test code = 386) HCO3 ARTERIAL (BEAKER) (test code 22 mmol/L -29 = 388) BASE EXCESS ARTERIAL (BEAKER) -2.0 mmol/L -2.0-3.0 (test code = 387) PATIENT TEMPERATURE (BEAKER) 36.0 (test code = 1818) FIO2 (BEAKER) (test code = 1819) 50.0 Glucose-Stat [id number] 11:20:37 Test Item Value Reference Range Interpretation Comments Glucose (test code = 2345-7) 99 mg/dL 70-110 Lab Interpretation (test code = Normal 87073-7) [facility] [id number] 11:20:37 Test Item Value Reference Range Interpretation Comments Sodium (test code = 2951-2) 136 meq/L 136-145 Lab Interpretation (test code = Normal 43998-0) [facility] [id number] 11:20:37 Test Item Value Reference Range Interpretation Comments Potassium (test code = 2823-3) 3.6 meq/L 3.6-5.5 Lab Interpretation (test code = Normal 74399-9) [facility] [id number] 11:20:37 Test Item Value Reference Range Interpretation Comments Glucose (test code = 2345-7) 99 mg/dL 70-110 Lab Interpretation (test code = Normal 47566-1) [facility] [id number] 11:20:37 Test Item Value Reference Range Interpretation Comments Sodium (test code = 2951-2) 136 meq/L 136-145 Lab Interpretation (test code = Normal 22401-5) [facility] [id number] 11:20:37 Test Item Value Reference Range Interpretation Comments Potassium (test code = 2823-3) 3.6 meq/L 3.6-5.5 Lab Interpretation (test code = Normal 65375-2) [facility] [id number] 11:20:37 Test Item Value Reference Range Interpretation Comments Glucose (test code = 2345-7) 99 mg/dL 70-110 Lab Interpretation (test code = Normal 93721-6) [facility] Na-Stat [id number] 11:20:37 Test Item Value Reference Range Interpretation Comments Sodium (test code = 2951-2) 136 meq/L 136-145 Lab Interpretation (test code = Normal 51558-0) [facility] [id number] 11:20:37 Test Item Value Reference Range Interpretation Comments Potassium (test code = 2823-3) 3.6 meq/L 3.6-5.5 Lab Interpretation (test code = Normal 62220-1) [facility] [id number] 11:20:37 Test Item Value Reference Range Interpretation Comments Glucose (test code = 2345-7) 99 mg/dL 70-110 Lab Interpretation (test code = Normal 63262-3) [facility] Na-Stat [id number] 11:20:37 Test Item Value Reference Range Interpretation Comments Sodium (test code = 2951-2) 136 meq/L 136-145 Lab Interpretation (test code = Normal 26797-2) [facility] [id number] 11:20:37 Test Item Value Reference Range Interpretation Comments Potassium (test code = 2823-3) 3.6 meq/L 3.6-5.5 Lab Interpretation (test code = Normal 63618-1) [facility] [id number] 11:20:37 Test Item Value Reference Range Interpretation Comments GLUCOSE RANDOM (BEAKER) (test code = 99 mg/dL 70-110 652) SODIUM NA-STAT [id number] 11:20:37 Test Item Value Reference Range Interpretation Comments SODIUM (BEAKER) (test code = 381) 136 meq/L 136-145 POTASSIUM-STAT [id number] 11:20:37 Test Item Value Reference Range Interpretation Comments POTASSIUM (BEAKER) (test code = 3.6 meq/L 3.6-5.5 379) SARS-CoV2/RT-PCR (Asymptomatic ONLY)2022-06-09 03:23:49 Test Item Value Reference Interpretation Comments Range SARS-COV2/RT-PCR Negative Negative The SARS-Co V-2 (test code = target nucleic 86879-7) acids are not detected in thi s specimen. Negat jc results do not preclude SARS-C oV-2 infection and should not be u sed as the sole bas is for patient management decisions. Nega tive results must be combined with clinical observations, patient history , and epidemiolog ical information. A false negative result may occu r if a specimen is improperly collected, transported or handled. This S ARS CoV-2 test is a rapid, real-gia e RT-PCR test intended for th e qualitative detection of nucleic acid fr om SARS-CoV-2 in a nasopharyngeal swab specimen colle pipo from individual s suspected of COVID-19 by the ir healthcare provider. MCKAYLA (test code = This test has been MCKAYLA) authorized by FDA under an EUA for use by authorized laboratories. This test is only authorized for the duration of the declaration that circumstances exist justifying the authorization of emergency use of in vitro diagnostic tests for detection and/or diagnosis of COVID-19 under Section 564(b)(1) of the Federal Food, Drug and Cosmetic Act, 21 U.S.C. 360bbb-3(b)(1), unless the authorization is terminated or revoked sooner. Fact Sheet for Healthcare Providers: https://www.Razoom.com/Documents/Xp ert%20Xpress%20SAR S%20CoV-2/Fact%20S heets/302-3802%20S ARS-COV-2%20HEALTH CARE%20PROVIDERS%2 0FACT%20SHEET.pdf Fact Sheet for Healthcare Patients: https://www.MiFi/Documents/Xp ert%20Xpress%20SAR S%20CoV-2/Fact%20S heets/302-3801%20S ARS-COV-2%20PATIEN T%20FACT%20SHEET.p df Lab Interpretation Normal (test code = 29140-5) [facility]2022-06-09 03:23:49 Test Item Value Reference Interpretation Comments Range SARS-COV2/RT-PCR Negative Negative The SARS-Co V-2 (test code = target nucleic 04090-7) acids are not detected in thi s specimen. Negat jc results do not preclude SARS-C oV-2 infection and should not be u sed as the sole bas is for patient management decisions. Nega tive results must be combined with clinical observations, patient history , and epidemiolog ical information. A false negative result may occu r if a specimen is improperly collected, transported or handled. This S ARS CoV-2 test is a rapid, real-gia e RT-PCR test intended for th e qualitative detection of nucleic acid fr om SARS-CoV-2 in a nasopharyngeal swab specimen colle pipo from individual s suspected of COVID-19 by the ir healthcare provider. MCKAYLA (test code = This test has been MCKAYLA) authorized by FDA under an EUA for use by authorized laboratories. This test is only authorized for the duration of the declaration that circumstances exist justifying the authorization of emergency use of in vitro diagnostic tests for detection and/or diagnosis of COVID-19 under Section 564(b)(1) of the Federal Food, Drug and Cosmetic Act, 21 U.S.C. 360bbb-3(b)(1), unless the authorization is terminated or revoked sooner. Fact Sheet for Healthcare Providers: https://www.MiFi/Documents/Xp ert%20Xpress%20SAR S%20CoV-2/Fact%20S heets/302-3802%20S ARS-COV-2%20HEALTH CARE%20PROVIDERS%2 0FACT%20SHEET.pdf Fact Sheet for Healthcare Patients: https://www.MiFi/Documents/Xp ert%20Xpress%20SAR S%20CoV-2/Fact%20S heets/302-3801%20S ARS-COV-2%20PATIEN T%20FACT%20SHEET.p df Lab Interpretation Normal (test code = 35996-1) [facility]2022-06-09 03:23:49 Test Item Value Reference Interpretation Comments Range SARS-COV2/RT-PCR Negative Negative The SARS-Co V-2 (test code = target nucleic 66508-8) acids are not detected in thi s specimen. Negat jc results do not preclude SARS-C oV-2 infection and should not be u sed as the sole bas is for patient management decisions. Nega tive results must be combined with clinical observations, patient history , and epidemiolog ical information. A false negative result may occu r if a specimen is improperly collected, transported or handled. This S ARS CoV-2 test is a rapid, real-gia e RT-PCR test intended for th e qualitative detection of nucleic acid fr om SARS-CoV-2 in a nasopharyngeal swab specimen collec pipo from individual s suspected of COVID-19 by the ir healthcare provider. MCKAYLA (test code = This test has been MCKAYLA) authorized by FDA under an EUA for use by authorized laboratories. This test is only authorized for the duration of the declaration that circumstances exist justifying the authorization of emergency use of in vitro diagnostic tests for detection and/or diagnosis of COVID-19 under Section 564(b)(1) of the Federal Food, Drug and Cosmetic Act, 21 U.S.C. 360bbb-3(b)(1), unless the authorization is terminated or revoked sooner. Fact Sheet for Healthcare Providers: https://www.MiFi/Documents/Xp ert%20Xpress%20SAR S%20CoV-2/Fact%20S heets/3023802%20S ARS-COV-2%20HEALTH CARE%20PROVIDERS%2 0FACT%20SHEET.pdf Fact Sheet for Healthcare Patients: https://www.MiFi/Documents/Xp ert%20Xpress%20SAR S%20CoV-2/Fact%20S heets/302-3801%20S ARS-COV-2%20PATIEN T%20FACT%20SHEET.p df Lab Interpretation Normal (test code = 96373-6) [facility]2022-06-09 03:23:49 Test Item Value Reference Interpretation Comments Range SARS-COV2/RT-PCR Negative Negative The SARS-Co V-2 (test code = target nucleic 56858-8) acids are not detected in thi s specimen. Negat jc results do not preclude SARS-C oV-2 infection and should not be u sed as the sole bas is for patient management decisions. Nega tive results must be combined with clinical observations, patient history , and epidemiolog ical information. A false negative result may occu r if a specimen is improperly collected, transported or handled. This S ARS CoV-2 test is a rapid, real-gia e RT-PCR test intended for th e qualitative detection of nucleic acid fr om SARS-CoV-2 in a nasopharyngeal swab specimen collec pipo from individual s suspected of COVID-19 by the ir healthcare provider. MCKAYLA (test code = This test has been MCKAYLA) authorized by FDA under an EUA for use by authorized laboratories. This test is only authorized for the duration of the declaration that circumstances exist justifying the authorization of emergency use of in vitro diagnostic tests for detection and/or diagnosis of COVID-19 under Section 564(b)(1) of the Federal Food, Drug and Cosmetic Act, 21 U.S.C. 360bbb-3(b)(1), unless the authorization is terminated or revoked sooner. Fact Sheet for Healthcare Providers: https://www.MiFi/Documents/Xp ert%20Xpress%20SAR S%20CoV-2/Fact%20S heets/302-3802%20S ARS-COV-2%20HEALTH CARE%20PROVIDERS%2 0FACT%20SHEET.pdf Fact Sheet for Healthcare Patients: https://www.MiFi/Documents/Xp ert%20Xpress%20SAR S%20CoV-2/Fact%20S heets/302-3801%20S ARS-COV-2%20PATIEN T%20FACT%20SHEET.p df Lab Interpretation Normal (test code = 97045-9) [facility])2022-06-09 03:23:49 Test Item Value Reference Range Interpretation Comments SARS-COV2/RT-PCR Negative Negative The SARS-Co V-2 target (test code = nucleic acids a re not 3609957) detected in thi s specimen. Negative result s do not preclude SARS-C oV-2 infection and s hould not be used as the krishan e basis for patient managem ent decisions. Nega tive results must be combine d with clinical observ ations, patient history , and epidemiological information. A false negativ e result may occur if a spec imen is improperly sylvia ected, transported or handled. This SARS CoV-2 test is a rapid, real-time RT-PC R test intended for th e qualitative detection of nu cleic acid from SARS-CoV-2 in a nasopharyngeal swab specimen collected from individuals suspected of CO VID-19 by their healthcar e provider. This test has been authorized by FDA under an EUA for use by authorized laboratories. This test is only authorized for the duration of the declaration that circumstances exist justifying the authorization of emergency use of in vitro diagnostic tests for detection and/or diagnosis of COVID-19 under Section 564(b)(1) of the Federal Food, Drug and Cosmetic Act, 21 U.S.C. 360bbb-3(b)(1), unless the authorization is terminated or revoked sooner. Fact Sheet for Healthcare Providers: https://www.Chekkt.com.co m/Documents/Xpert%20Xpress%20SARS%20CoV-2/Fact%20Sheets/302-3802%10MSGZ-EUN-6%20 HEALTHCARE%20PROVIDERS%20FACT%20SHEET.pdf Fact Sheet for Healthcare Patients: https://www.[employer]/Documents/Xpert%20Xp ress%20SARS%20CoV-2/Fact%20Sheets/302-3801%01ZNKQ-QOJ-3%20PATIENT%20FACT%20SHEET .pdfRAD, CHEST, 1 VIEW, NON [id number] 02:28:00Reason for exam:- >preopShould this be performed at the bedside?->Yes [facility] 1990 Sex: FFINAL REPORT INDICATION: preop COMPARISON: None TECHNIQUE: Single frontal view of the chest. FINDINGS: Lungs and pleura: Clear lungs. No effusion. Heart and mediastinum: Normal heart size. Unremarkable mediastinal contours. Osseous structures: No acute abnormality. Other: None. IMPRESSION: No acute intrathoracic abnormality. Signed: Brice Saleem Verified Date/Time: 06/09/2022 02:28:06 Pregnancy Screen, [id number] 02:01:22 Test Item Value Reference Range Interpretation Comments Preg Test, Ur (test code = 2111-) Negative Negative Lab Interpretation (test code = Normal 08725-7) [facility] [id number] 02:01:22 Test Item Value Reference Range Interpretation Comments Preg Test, Ur (test code = 2111-1) Negative Negative Lab Interpretation (test code = Normal 09460-8) [facility], [id number] 02:01:22 Test Item Value Reference Range Interpretation Comments Preg Test, Ur (test code = 2-1) Negative Negative Lab Interpretation (test code = Normal 35537-6) [facility], [id number] 02:01:22 Test Item Value Reference Range Interpretation Comments Preg Test, Ur (test code = 2112-1) Negative Negative Lab Interpretation (test code = Normal 72614-8) [facility], [id number] 02:01:22 Test Item Value Reference Range Interpretation Comments TEST URINE (BEAKER) (test Negative Negative code = 583) MR, BRAIN, [id number] 00:24:00Unlisted Reason for Exam - Click Yes and Enter Reason Below->YesUnlisted Reason for Exam->STEALTH preop [facility] : 1990 Sex: FFINAL REPORT EXAM: MR, BRAIN, WITH \\T\\ WITHOUT CONTRAST CLINICAL INDICATION: Stealth, preop. TECHNIQUE: Pre-contrast sagittal and axial T1-w, and axial T2-FLAIR, GRE, and diffusion-w sequences of the brain with ADC maps. Post- contrast axial fat-saturated T2-w and T1-w, and sagittal volumetric T1-w images of the brain with axial and coronal reformations. Intravenous contrast material was administered for the examination. COMPARISON: 09/16/2021. FINDINGS:Examination somewhat limited by motion degradation affecting the postcontrast images. Within this constraint, results are as follows. Parenchyma: The lesion within the anterior right frontal operculum compatible with cavernous venous malformation with mixed T1/T2 intensity compatible with blood products of varying age and hypointense rim consistent with hemosiderin. There is some speckled enhancement within the lesion. No developmental venous anomaly seen. Measurements are 1.2 x 1.3 x 1.1 cm (AP, TRV, SI). No significant change in size compared to 09/16/2021. No infarction on DWI. No acute hemorrhage. No mass effect. Abnormal Enhancement: As above Extra-axial Collection: None Ventricular System: Normal Major Intracranial FlowVoids: Normal Osseous Structures: Expected marrow signal. Included Orbits: Normal Paranasal Sinuses:Predominantly clear Tympanomastoid Cavities: Normal IMPRESSION: Examination is somewhat limited by motion degradation, as described. No significant change in size of the right frontal lobe cavernous venous malformation. No significant mass effect. No acute hemorrhage or infarction. Signed: Brice Saleem MDReport Verified Date/Time: 06/09/2022 00:24:26 BASIC METABOLIC [id number] 22:17:26 Test Item Value Reference Range Interpretation Comments SODIUM (BEAKER) 138 meq/L 136-145 (test code = 381) POTASSIUM 3.7 meq/L 3.5-5.1 (BEAKER) (test code = 379) CHLORIDE (BEAKER) 103 meq/L 98-107 (test code = 382) CO2 (BEAKER) 25 meq/L 22-29 (test code = 355) BLOOD UREA 19 mg/dL 7-21 NITROGEN (BEAKER) (test code = 354) CREATININE 0.89 mg/dL 0.57-1.25 (BEAKER) (test code = 358) GLUCOSE RANDOM 92 mg/dL 70-105 (BEAKER) (test code = 652) CALCIUM (BEAKER) 10.2 mg/dL 8.4-10.2 (test code = 697) EGFR (BEAKER) 87 Interpretatio n of eGFR (test code = mL/min/1.73 values Stage De scription 1092) sq m Result G1 Norm al or high >=90 G2 Mildly decreased 60-89 G3a Mildl y to moderately 45-5 9 G3b Moderately to s everely 30-44 G4 Severl y decreased 15-29 G5 Kidney failure <15Reported eGF R is based on the CKD-EPI 2021 equation that d oes not use a race coefficientEsti mated GFR is not as accur ate as Creatinine Lynn juanis in predicting glom erular filtration rate . Estimated GFR is not appl icable for dialysis patien ts Web Content Director ID - [id number] 22:07:45 Test Item Value Reference Range Interpretation Comments PROTIME (BEAKER) (test code = 13.2 seconds 11.9-14.2 759) INR (BEAKER) (test code = 370) 1.06 <=5.90 PARTIAL THROMBOPLASTIN TIME 27.2 seconds 22.5-36.0 (BEAKER) (test code = 760) RECOMMENDED COUMADIN/WARFARIN INR THERAPY RANGESSTANDARD DOSE: 2.0 - 3.0 Includes: PROPHYLAXIS for venous thrombosis, systemic embolization; TREATMENT for venous thrombosis and/or pulmonary embolus.HIGH RISK: Target INR is 2.5-3.5 for patients with mechanical heart valves.CBC W/PLT COUNT & AUTO [id number] 21:50:30 Test Item Value Reference Range Interpretation Comments WHITE BLOOD CELL COUNT (BEAKER) 10.2 K/ L 3.5-10.5 (test code = 775) RED BLOOD CELL COUNT (BEAKER) 5.16 M/ L 3.93-5.22 (test code = 761) HEMOGLOBIN (BEAKER) (test code = 11.3 GM/DL 11.2-15.7 410) HEMATOCRIT (BEAKER) (test code = 37.0 % 34.1-44.9 411) MEAN CORPUSCULAR VOLUME (BEAKER) 72 fL 79-95 L (test code = 753) MEAN CORPUSCULAR HEMOGLOBIN 21.9 pg 25.6-32.2 L (BEAKER) (test code = 751) MEAN CORPUSCULAR HEMOGLOBIN CONC 30.5 GM/DL 32.2-35.5 L (BEAKER) (test code = 752) RED CELL DISTRIBUTION WIDTH 16.6 % 11.7-14.4 H (BEAKER) (test code = 412) PLATELET COUNT (BEAKER) (test 352 K/CU MM 150-450 code = 756) MEAN PLATELET VOLUME (BEAKER) 11.0 fL 9.4-12.3 (test code = 754) NUCLEATED RED BLOOD CELLS 0 /100 WBC 0-0 (BEAKER) (test code = 413) NEUTROPHILS RELATIVE PERCENT 53 % (BEAKER) (test code = 429) LYMPHOCYTES RELATIVE PERCENT 34 % (BEAKER) (test code = 430) MONOCYTES RELATIVE PERCENT 10 % (BEAKER) (test code = 431) EOSINOPHILS RELATIVE PERCENT 2 % (BEAKER) (test code = 432) BASOPHILS RELATIVE PERCENT 0 % (BEAKER) (test code = 437) NEUTROPHILS ABSOLUTE COUNT 5.42 K/ L 1.56-6.13 (BEAKER) (test code = 670) LYMPHOCYTES ABSOLUTE COUNT 3.46 K/ L 1.18-3.74 (BEAKER) (test code = 414) MONOCYTES ABSOLUTE COUNT (BEAKER) 1.04 K/ L 0.24-0.36 H (test code = 415) EOSINOPHILS ABSOLUTE COUNT 0.20 K/ L 0.04-0.36 (BEAKER) (test code = 416) BASOPHILS ABSOLUTE COUNT (BEAKER) 0.03 K/ L 0.01-0.08 (test code = 417) IMMATURE GRANULOCYTES-RELATIVE 0.30 % 0.00-1.00 PERCENT (BEAKER) (test code = 2801) CBC W/AUTO DIFF WITH [id number] 08:17:51 Test Item Value Reference Range Interpretation Comments WBC (test code = 7.5 K/UL 3.5-11.0 1001) RBC (test code = 5.34 M/UL 3.80-5.40 1002) HEMOGLOBIN (test code 12.0 G/DL 11.5-15.5 = 1003) HEMATOCRIT (test code 37.9 % 34.0-45.0 = 1004) MCV (test code = 71.0 fL 80.0-99.0 L 1005) MCH (test code = 22.5 PG 25.0-33.0 L 1006) MCHC (test code = 31.7 G/DL 31.0-36.0 1007) RDW (test code = 15.5 % 11.5-15.0 H 1038) NEUTROPHILS (test 60.9 % code = 1008) LYMPHOCYTES (test 29.2 % code = 1010) MONOCYTES (test code 6.2 % = 1011) EOSINOPHILS (test 2.9 % code = 1012) BASOPHILS (test code 0.5 % = 1013) IMMATURE GRANULOCYTES 0.3 % (test code = 1036) NUCLEATED RBCS (test 0.0 /100 WBC'S See_Comment [Aut omated code = 1065) message] The sy stem which generated this result transmitted reference range : 0.0. The refere nce range was not u sed to interpret th is result as normal/abnormal . PLATELET COUNT (test 369 K/UL 130-400 code = 1015) ABSOLUTE NEUTROPHILS 4.55 K/UL 1.50-7.50 (test code = 1066) ABSOLUTE LYMPHOCYTES 2.18 K/UL 1.00-4.00 (test code = 1067) ABSOLUTE MONOCYTES 0.46 K/UL 0.20-1.00 (test code = 1068) ABSOLUTE EOSINOPHILS 0.22 K/UL 0.00-0.50 (test code = 1040) ABSOLUTE BASOPHILS 0.04 K/UL 0.00-0.20 (test code = 1069) ABS IMMATURE 0.02 K/UL 0.00-0.10 GRANULOCYTES (test code = 1020) ABS NUCLEATED RBCS 0.00 K/UL 0.00-0.11 (test code = 48535) HEMOGLOBIN [id number] 07:32:53 Test Item Value Reference Range Interpretation Comments HEMOGLOBIN A1c (test code = 67392) 6.0 % 4.2-5.6 H VITAMIN [id number] 04:20:34 Test Item Value Reference Range Interpretation Comments VITAMIN B-12 (test 965 PG/ML 200-950 H UNLESS O THERWISE code = 2840) INDICATED, ALL TESTING PERFORMED ATCLI NICSC PATHOLOGY [facility]. [address] [id number] [place] [address] DIRECTOR: ESTELA MCCONNELL M.D. CLIA NUMBER [id number] CAP ACCREDITATION N O. [id number] VITAMIN D, 25 [id number] 04:17:13 Test Item Value Reference Range Interpretation Comments VITAMIN D, 25 OH 15 NG/ML SEE BELOW L NOTE: 25-H YDROXYVITAMIN D (test code = 4958) ASSAY INC LUDES 25-HYDROXYVITAM IN D2 AND D3. METHODOLOGY IS CHEMILUMINESCEN T IMMUNOASSAY. INTERPRETIVE RA NGES PEDIATRIC (<17 YEARS) . . . . . . . . . . . NG/ML 20-100ADULT: IN SUFFICIENT . . . . . . . . . . . . . . NG/ML <20 SUBOP TIMAL . . . . . . . . . . . . . . . NG/ML 20-29 OPT IMAL . . . . . . . . . . . . . . . . . NG/ML 30-100 COMPREHENSIVE METABOLIC [id number] 04:03:09 Test Item Value Reference Range Interpretation Comments GLUCOSE (test code = 99 MG/DL 70-99 2216) BUN (test code = 16 MG/DL 6-20 2207) CREATININE (test 0.91 MG/DL 0.60-1.30 code = 2214) eGFR (2020 CKD-EPI) 85 ML/MIN/1.73 >60 (test code = 50181) CALC BUN/CREAT (test 18 RATIO 6-28 code = 2235) SODIUM (test code = 140 MEQ/L 139-086 8317) POTASSIUM (test code 3.9 MEQ/L 3.5-5.4 = 2227) CHLORIDE (test code 100 MEQ/L 95-107 = 2214) CARBON DIOXIDE (test 28 MEQ/L 19-31 code = 2206) CALCIUM (test code = 10.3 MG/DL 8.5-10.5 2208) PROTEIN, TOTAL (test 7.7 G/DL 6.1-8.3 code = 222) ALBUMIN (test code = 4.4 G/DL 3.5-5.2 2200) CALC GLOBULIN (test 3.3 G/DL 1.9-3.7 code = 2240) CALC A/G RATIO (test 1.3 RATIO 1.0-2.6 code = 2234) BILIRUBIN, TOTAL <0.2 MG/DL See_Comment [Automated message] (test code = 2207) The syste m which generated this result transmit pipo reference range : <=1.2. The refe rence range was not u sed to interpret th is result as normal/abnormal . ALKALINE PHOSPHATASE 139 U/L 40-114 H (test code = 2204) AST (test code = 22 U/L 9-40 2217) ALT (test code = 25 U/L 5-40 2218) LIPID [id number] 04:03:09 Test Item Value Reference Range Interpretation Comments CHOLESTEROL (test 233 MG/DL <200 H code = 2210) TRIGLYCERIDES (test 82 MG/DL <150 code = 2232) HDL CHOLESTEROL (test 49 MG/DL >39 code = 2220) CALC LDL CHOL (test 165 MG/DL <100 H NOTE: C ALCULATED LDL code = 2237) IS BASED ON MISSY-ROSENTHAL METHOD WHICHINCLUDES ADJUSTABLE TRIGLYCERIDE:VL DL CHOLESTEROL RAT IO.THIS FACTOR VARIES B Y MEASURED TRIGLY CERIDE AND NON-HDLCHOL ESTEROL CONCENTRATIONS WITH INCREASED CALCU LATED LDL SEENIN HIGH ER TRIGLYCERIDE OR LOWER NON-HDL SPECIME NS. FOR MOREINFORMATION , SEE CLIENT ANNOUNCE MENT AT [email or web address] /CalcLDL-C RISK RATIO LDL/HDL 3.37 RATIO <3.22 H (test code = 2238) CT, CTANGIO [id number] 14:06:00Unlisted Reason for Exam - Click Yes and Enter Reason Below->No [facility] 1990 Sex: FAddendum BeginsREPORT STATUS:A Add: MIPS images and/or 3-D postprocessing was obtained. Signed: Varun Gonzales MDReport Verified Date/Time: 10/08/2021 14:06:48 Addendum EndsFINAL REPORT Exams: Intracranial CT angiogramHistory: Intraparenchymal hemorrhage, follow- upComparison studies: 09/15/2021 CT. Technique: Axial CT scans obtained from the skull base to the vertex without contrastAxial images obtained through the intracranial region during injection of IV contrast.Axial CT scans obtained from the skull base to the vertex after the CTA.Coronal and sagittal reconstructions obtained from the axial data IV Contrast 100 cc of Omnipaque.Complication: None FINDINGS: Head CT without contrast: No interval changes when compared to the previous CT.1.0 x 1.2 cm (AP by transverse) hyperdensity in the right frontal lobe. CTA [place]: Carotid arteries:Patent, no abnormalities in the extra and intracranial ICA.. No abnormality of the anterior cerebral arteries identified.No abnormality of the middle cerebral arteries identified. Vertebrobasilar Circulation: Vertebral arteries: Patent, no abnormalities. Basilar artery: Patent, no abnormalities. Posterior cerebral arteries: Patent, no abnormalities. Normal Variants:ACom:No aneurysm.Pcoms:PatentVertebral arteri es: Co-dominant. IMPRESSION: 1.No significant change. No acute vascular abnormality. No arteriovascular malformation identified.2.1.0 x 1.2 cm hyperdensity in the right frontal lobe, similar to prior exam. Differential diagnosis includes small vascular malformation such as cavernoma and intraparenchymal hemorrhage. MRI with and without contrast can be considered for further evaluation. Signed: Varun Gonzales Verified Date/Time: 09/16/2021 07:29:34 Reading Location: [address] Transitional Reading Room POC- Glucose [id number] 12:35:42 Test Item Value Reference Range Interpretation Comments POC-Glucose Meter (test 79 mg/dL 70-110 : TE STED AT [facility] code = 1538) [address] [facility] [address]: Web Content Director/Techni angelita ID = [id number] for Almanza, Emely Lab Interpretation (test Normal code = 46578-1) [facility] [id number] 12:35:42 Test Item Value Reference Range Interpretation Comments POC-Glucose Meter (test 79 mg/dL 70-110 : TE STED AT [facility] code = 1538) [address] [facility] [address]: Web Content Director/Techni angelita ID = [id number] for Almanza, Emely Lab Interpretation (test Normal code = 02955-6) [facility] [id number] 12:35:42 Test Item Value Reference Range Interpretation Comments POC-Glucose Meter (test 79 mg/dL 70-110 : TE STED AT [facility] code = 1538) [address] [facility] [address]: Web Content Director/Techni angelita ID = [id number] for Almanza, Emely Lab Interpretation (test Normal code = 11049-1) [facility]-Glucose [id number] 12:35:42 Test Item Value Reference Range Interpretation Comments POC-Glucose Meter (test 79 mg/dL 70-110 : TE STED AT [facility] code = 1538) [address] [facility] [address]: Web Content Director/Techni angelita ID = [id number] for Almanza, Emely Lab Interpretation (test Normal code = 47984-3) [facility]-Glucose [id number] 12:35:42 Test Item Value Reference Range Interpretation Comments POC-Glucose Meter (test 79 mg/dL 70-110 : TE STED AT [facility] code = 1538) [id number] [place] [address]: Web Content Director/Techni angelita ID = [id number] for Almanza, Emely Lab Interpretation (test Normal code = 30128-6) [facility]-Glucose [id number] 12:35:42 Test Item Value Reference Range Interpretation Comments POC-Glucose Meter (test 79 mg/dL 70-110 : TE STED AT [facility] code = 1538) [id number] [place] [address]: Web Content Director/Techni angelita ID = [id number] for Almanza, Emely Lab Interpretation (test Normal code = 15778-0) [facility]-Glucose [id number] 12:35:42 Test Item Value Reference Range Interpretation Comments POC-Glucose Meter (test 79 mg/dL 70-110 : TE STED AT [facility] code = 1538) [address] [facility] [address]: Web Content Director/Techni angelita ID = [id number] for Almanza, Emely Lab Interpretation (test Normal code = 58575-0) [facility]-Glucose [id number] 12:35:42 Test Item Value Reference Range Interpretation Comments POC-Glucose Meter (test 79 mg/dL 70-110 : TE STED AT [facility] code = 1538) [address] [facility] [address]: Web Content Director/Techni angelita ID = [id number] for Almanza, Emely Lab Interpretation (test Normal code = 05575-5) [facility]-Glucose [id number] 12:35:42 Test Item Value Reference Range Interpretation Comments POC-Glucose Meter (test 79 mg/dL 70-110 : TE STED AT [facility] code = 1538) 130[address] [facility] [address]: Web Content Director/Techni angelita ID = [id number] for Almanza, Emely Lab Interpretation (test Normal code = 63924-4) [facility]-Glucose [id number] 12:35:42 Test Item Value Reference Range Interpretation Comments POC-Glucose Meter (test 79 mg/dL 70-110 : TE STED AT [facility] code = 1538) [id number] [place] [address]: Web Content Director/Techni angelita ID = [id number] for Almanza, Emely Lab Interpretation (test Normal code = 02723-7) [facility]-Glucose sojht1736-49-70 12:35:42 Test Item Value Reference Range Interpretation Comments POC-Glucose Meter (test 79 mg/dL 70-110 : TE STED AT [facility] code = 1538) [id number] [place] [address]: Web Content Director/Techni angelita ID = [id number] for Almanza, Emely Lab Interpretation (test Normal code = 54809-9) [facility]-Glucose [id number] 12:35:42 Test Item Value Reference Range Interpretation Comments POC-Glucose Meter (test 79 mg/dL 70-110 : TE STED AT [facility] code = 1538) [address] [place] [address]: Web Content Director/Techni angelita ID = [id number] for Almanza, Emely Lab Interpretation (test Normal code = 21332-9) [facility]-Glucose [id number] 12:35:42 Test Item Value Reference Range Interpretation Comments POC-Glucose Meter (test 79 mg/dL 70-110 : TE STED AT [facility] code = 1538) [id number] [place] [address]: Web Content Director/Techni angelita ID = [id number] for Almanza, Emely Lab Interpretation (test Normal code = 76517-3) [facility] [id number] 12:35:42 Test Item Value Reference Range Interpretation Comments POC-GLUCOSE METER 79 mg/dL 70-110 : [place] [address] (BEAKER) (test code = [facility], 1538) [facility] 77 384: Web Content Director/Techni angelita ID = [id number] for Emely Bardales MR, BRAIN, [id number] 15:07:00Unlisted Reason for Exam - Click Yes and Enter Reason Below->NoDoes the patient have an implantedelectronic device?->No [facility] : 1990 Sex: FFINAL REPORT MR, BRAIN, WITH \\T\\ WITHOUT CONTRAST INDICATION: Subarachnoid hemorrhage (SAH) suspected Technique: Multiplanar, multisequence MRI images of the brain were obtained before and after demonstration of intravenous contrast. COMPARISON: CT angiogram, 09/16/2021 FINDINGS:A 1.3 x 1.2 cm (AP by transverse) focus of susceptibility seen in the right frontal lobe. There is associated intralesional FLAIR hyperintensity and heterogeneous T2 hyperintensity with hemosiderin rim. No surrounding cerebral edema.Questionable small developmental venous anomaly in the right frontal lobe (series 802 image 116).No restricted diffusion to suggest recent infarct. No hydrocephalus. Orbits are within normal limits. No obstructive paranasal sinus disease. Additional findings: None. IMPRESSION: 1.3 x 1.2 cm hemorrhagic right frontal lobe lesion, most consistent with a cavernoma. No subarachnoid hemorrhage identified. Signed: Varun Gonzales [facility] Verified Date/Time: 09/16/2021 15:07:02 Reading Location: [facility] C013V Neuro Reading Room POCT-GLUCOSE [id number] 11:47:07 Test Item Value Reference Range Interpretation Comments POC-GLUCOSE METER 86 mg/dL 70-110 : TESTED A T [facility] [address] (BEAKER) (test code = [facility] [address] [facility], 1538) [place] [address] 384: Web Content Director/Techni angelita ID = [id number] for Hollie Vega POCT-GLUCOSE [id number] 11:21:34 Test Item Value Reference Range Interpretation Comments POC-GLUCOSE METER 92 mg/dL 70-110 : TESTED A T [facility] [address] (BEAKER) (test code = [facility] [address] [facility], 1538) [place] [address] 384: Web Content Director/Techni angelita ID = [id number] for Maria Ines Lacey BASIC METABOLIC [id number] 02:04:05 Test Item Value Reference Range Interpretation Comments SODIUM (BEAKER) 139 meq/L 135-148 (test code = 381) POTASSIUM (BEAKER) 3.4 meq/L 3.5-5.5 L (test code = 379) CHLORIDE (BEAKER) 107 meq/L 98-106 H (test code = 382) CO2 (BEAKER) (test 23 meq/L 20-31 code = 355) BLOOD UREA NITROGEN 8 mg/dL 10-26 L (BEAKER) (test code = 354) CREATININE (BEAKER) 0.67 mg/dL 0.50-1.20 (test code = 358) GLUCOSE RANDOM 110 mg/dL 70-110 (BEAKER) (test code = 652) CALCIUM (BEAKER) 9.0 mg/dL 8.5-10.5 (test code = 697) EGFR (BEAKER) (test 123 mL/min/1.73 ESTIM ATED GFR IS code = 1092) sq m NOT ACCURATE CREATININE CLEARANCE IN PREDICTING GLOMERULAR FILTRATION RATE . ESTIMATED GFR I S NOT APPLICABLE FOR DIALYSIS PATIEN TS. Web Content Director ID - [id number] FUNCTION [id number] 01:59:46 Test Item Value Reference Range Interpretation Comments TOTAL PROTEIN (BEAKER) (test code = 7.9 gm/dL 6.0-8.5 770) ALBUMIN (BEAKER) (test code = 1145) 4.2 g/dL 3.5-5.0 BILIRUBIN TOTAL (BEAKER) (test code 0.3 mg/dL 0.1-1.3 = 377) BILIRUBIN DIRECT (BEAKER) (test 0.1 mg/dL 0.0-0.5 code = 706) ALKALINE PHOSPHATASE (BEAKER) (test 123 U/L 30-115 H code = 346) AST (SGOT) (BEAKER) (test code = 19 U/L 5-40 353) ALT (SGPT) (BEAKER) (test code = 28 U/L 6-50 347) Web Content Director ID - [id number] 01:59:41 Test Item Value Reference Range Interpretation Comments MAGNESIUM (BEAKER) (test code = 1.8 mg/dL 1.5-3.0 627) Web Content Director ID - [id number] W/PLT COUNT & AUTO [id number] 01:26:13 Test Item Value Reference Range Interpretation Comments WHITE BLOOD CELL COUNT (BEAKER) 7.8 K/ L 4.0-10.0 (test code = 775) RED BLOOD CELL COUNT (BEAKER) 5.26 M/ L 4.00-5.00 H (test code = 761) HEMOGLOBIN (BEAKER) (test code = 11.9 GM/DL 12.0-15.5 L 410) HEMATOCRIT (BEAKER) (test code = 38.9 % 36.0-46.0 411) MEAN CORPUSCULAR VOLUME (BEAKER) 74.0 fL 82.0-99.0 L (test code = 753) MEAN CORPUSCULAR HEMOGLOBIN 22.6 pg 27.0-33.0 L (BEAKER) (test code = 751) MEAN CORPUSCULAR HEMOGLOBIN CONC 30.6 GM/DL 32.0-36.0 L (BEAKER) (test code = 752) RED CELL DISTRIBUTION WIDTH 15.5 % 12.0-15.0 H (BEAKER) (test code = 412) PLATELET COUNT (BEAKER) (test 339 K/CU MM 150-430 code = 756) MEAN PLATELET VOLUME (BEAKER) 10.5 fL 6.0-11.5 (test code = 754) NUCLEATED RED BLOOD CELLS 0 /100 WBC 0-0 (BEAKER) (test code = 413) NEUTROPHILS RELATIVE PERCENT 53 % (BEAKER) (test code = 429) LYMPHOCYTES RELATIVE PERCENT 36 % (BEAKER) (test code = 430) MONOCYTES RELATIVE PERCENT 7 % (BEAKER) (test code = 431) EOSINOPHILS RELATIVE PERCENT 3 % (BEAKER) (test code = 432) BASOPHILS RELATIVE PERCENT 1 % (BEAKER) (test code = 437) NEUTROPHILS ABSOLUTE COUNT 4.15 K/ L 1.80-8.00 (BEAKER) (test code = 670) LYMPHOCYTES ABSOLUTE COUNT 2.77 K/ L 1.48-4.50 (BEAKER) (test code = 414) MONOCYTES ABSOLUTE COUNT (BEAKER) 0.54 K/ L 0.00-1.30 (test code = 415) EOSINOPHILS ABSOLUTE COUNT 0.24 K/ L 0.00-0.50 (BEAKER) (test code = 416) BASOPHILS ABSOLUTE COUNT (BEAKER) 0.04 K/ L 0.00-0.20 (test code = 417) IMMATURE GRANULOCYTES-RELATIVE 0 % 0-0 PERCENT (BEAKER) (test code = 2801) CBC WITH [id number] 03:17:03 Test Item Value Reference Range Interpretation Comments WBC (test code = See_Comment [Automated 90-2) message] The sy stem which generated this result transmitted reference range : 4.30 - 11.10 10*3/?L. The reference range was not used to interpret this result as normal/abnormal . RBC (test code = See_Comment [Automated 059-8) message] The sy stem which generated this [...] RDW-SD (test code = 40.7 fL 39.0-49.9 72773-2) RDW-CV (test code = 14.8 % 12.0-15.5 788-0) PLT (test code = See_Comment H [Automated 777-3) message] The sy stem which generated this result transmitted reference range : 166 - 358 10*3/ ?L. The reference r christiano was not used to interpret this result as normal/abnormal . MPV (test code = 12.3 fL 9.5-12.9 27035-2) NRBC/100 WBC (test See_Comment [Automat ed code = 2745380112) message] The system which generated this result transmitted reference range : 0.0 - 10.0 /100 WBCs. The refer ence range was not u sed to interpret th is result as normal/abnormal . NRBC x10^3 (test code <0.01 See_Comment [Auto mated = 1315662436) message] The s ystem which generated this result transmitted reference range : 10*3/?L. The reference range was not used to interpret this result as normal/abnormal . GRAN MAT (NEUT) % 53.9 % (test code = 770-8) IMM GRAN % (test code 0.20 % = 7072238935) LYMPH % (test code = 33.8 % 736-9) MONO % (test code = 8.1 % 5905-5) EOS % (test code = 3.5 % 713-8) BASO % (test code = 0.5 % 706-2) GRAN MAT x10^3(ANC) 3.26 10*3/uL 1.88-7.09 (test code = 7677010674) IMM GRAN x10^3 (test <0.03 0.00-0.06 code = 9410986521) LYMPH x10^3 (test code 2.04 10*3/uL 1.32-3.29 = 731-0) MONO x10^3 (test code 0.49 10*3/uL 0.33-0.92 = 742-7) EOS x10^3 (test code = 0.21 10*3/uL 0.03-0.39 711-2) BASO x10^3 (test code 0.03 10*3/uL 0.01-0.07 = 704-7) Lab Interpretation Abnormal (test code = 75530-8) [facility] WITH [id number] 03:17:03 Test Item Value Reference Range Interpretation [...] RDW-SD (test code = 40.7 fL 39.0-49.9 54887-4) RDW-CV (test code = 14.8 % 12.0-15.5 788-0) PLT (test code = See_Comment H [Automated 777-3) message] The sy stem which generated this result transmitted reference range : 166 - 358 10*3/ ?L. The reference r christiano was not used to interpret this result as normal/abnormal . MPV (test code = 12.3 fL 9.5-12.9 38491-2) NRBC/100 WBC (test See_Comment [Automat ed code = 8372721532) message] The system which generated this result transmitted reference range : 0.0 - 10.0 /100 WBCs. The refer ence range was not u sed to interpret th is result as normal/abnormal . NRBC x10^3 (test code <0.01 See_Comment [Auto mated = 4889248679) message] The s ystem which generated this result transmitted reference range : 10*3/?L. The reference range was not used to interpret this result as normal/abnormal . GRAN MAT (NEUT) % 53.9 % (test code = 770-8) IMM GRAN % (test code 0.20 % = 0485658542) LYMPH % (test code = 33.8 % 736-9) MONO % (test code = 8.1 % 5905-5) EOS % (test code = 3.5 % 713-8) BASO % (test code = 0.5 % 706-2) GRAN MAT x10^3(ANC) 3.26 10*3/uL 1.88-7.09 (test code = 1019473634) IMM GRAN x10^3 (test <0.03 0.00-0.06 code = 1547175640) LYMPH x10^3 (test code 2.04 10*3/uL 1.32-3.29 = 731-0) MONO x10^3 (test code 0.49 10*3/uL 0.33-0.92 = 742-7) EOS x10^3 (test code = 0.21 10*3/uL 0.03-0.39 711-2) BASO x10^3 (test code 0.03 10*3/uL 0.01-0.07 = 704-7) Lab Interpretation Abnormal (test code = 65710-5) [facility] URINALYSIS W SPECIFIC [id number] 16:13:00 Test Item Value Reference Range Interpretation [...] POCT U APPEAR (test code = 3267) [facility] [id number] 16:13:00 Test Item Value Reference Range Interpretation [...] POCT U APPEAR (test code = 3267) [facility] HospitalUrinalysis2021-05-01 01:10:54 Test Item Value Reference Range Interpretation Comments APPEARANCE (test code = Clear Clear 6116568866) COLOR (test code = Yellow Yellow 2158970994) PH (test code = 4.8-8.0 3489069180) SP GRAVITY (test code = 1.003-1.030 0682041214) GLU U QUAL (test code = Normal Normal 1782636180) BLOOD (test code = 1+ Negative A 4988041430) KETONES (test code = Negative Negative 7115438952) PROTEIN (test code = Negative Negative 2887-8) UROBILIN (test code = Normal Normal 0843023867) BILIRUBIN (test code = Negative Negative 9044814427) NITRITE (test code = Negative Negative 7185543370) LEUK LORENZO (test code = Negative Negative 4594659655) RBC/HPF (test code = See_Comment [Autom ated message] 1819920497) The system [employer] generated this result transmitted ref erence range: 0 - 3 HP F. The reference range was not used to int erpret this result as normal/abnormal . WBC/HPF (test code = See_Comment [Autom ated message] 5193386977) The system [employer] generated this result transmitted ref erence range: 0 - 5 HP F. The reference range was not used to int erpret this result as normal/abnormal . BACTERIA (test code = Negative Negative 2690306400) MUCOUS (test code = Moderate Negative LPF A 7512352429) SQ EPITH (test code = See_Comment [Auto mated message] 6724686499) The system [employer] generated this result transmitted ref erence range: <=2 HPF. The reference range was not used to int erpret this result as normal/abnormal . Lab Interpretation (test Abnormal code = 80351-6) [facility] Hospital[facility] CREAT Ratio Urine [id number] 01:04:08 Test Item Value Reference Range Interpretation Comments T. PROT U (test code = 2888-6) 8 mg/dL CREAT U (test code = 9212961360) 161.0 mg/dL Protein/Creatinine Ratio Urine 0.0-2.0 (test code = 4473139094) [facility] HospitalU[facility] Acid Zgmuo3780-89-73 00:32:24 Test Item Value Reference Range Interpretation Comments URIC ACID (test code = 7005147559) 5.6 mg/dL 2.9-6.0 Lab Interpretation (test code = Normal 62276-1) [facility] HospitalSerum Mjkoowweul5201-69-54 00:32:24 Test Item Value Reference Range Interpretation Comments CREATININE (test code 0.74 mg/dL 0.50-1.04 = 1986638597) eGFR (test code = mL/min/1.73m2 9257010301) MCKAYLA (test code = MCKAYLA) Association of [...] or urine or abnormalities in imaging tests). [facility] HospitalSGOT (Asparate Amino Transfer)2020-08-23 00:32:24 Test Item Value Reference Range Interpretation Comments AST(SGOT) (test code = 0817212759) 25 U/L 13-40 Lab Interpretation (test code = Normal 99627-5) [facility] HospitalAlanine Amino Transferase (SGPT)2020-08-23 00:32:24 Test Item Value Reference Range Interpretation Comments ALTv (test code = 1742-6) 18 U/L 5-35 Lab Interpretation (test code = Normal 30851-3) [facility] HospitalLactate Xyrobxmfnffeq3311-02-39 00:30:21 Test Item Value Reference Range Interpretation Comments LDH (test code = 7379819454) 446 U/L 300-600 Lab Interpretation (test code = Normal 59510-6) [facility] HospitalCB with Baeheipbnfoi9691-10-44 23:57:35 Test Item Value Reference Range Interpretation Comments WBC (test code = See_Comment [Automated 4203-2) message] The sy stem which generated this result transmitted reference range : 4.30 - 11.10 10*3/?L. The reference range was not used to interpret this result as normal/abnormal . RBC (test code = See_Comment [Automated 654-9) message] The sy stem which generated this [...] RDW-SD (test code = 41.1 fL 39.0-49.9 38050-6) RDW-CV (test code = 14.6 % 12.0-15.5 788-0) PLT (test code = See_Comment H [Automated 777-3) message] The sy stem which generated this result transmitted reference range : 166 - 358 10*3/ ?L. The reference r christiano was not used to interpret this result as normal/abnormal . MPV (test code = 11.2 fL 9.5-12.9 35746-7) NRBC/100 WBC (test See_Comment [Automat ed code = 9161076261) message] The system which generated this result transmitted reference range : 0.0 - 10.0 /100 WBCs. The refer ence range was not u sed to interpret th is result as normal/abnormal . NRBC x10^3 (test code <0.01 See_Comment [Auto mated = 7932811222) message] The s ystem which generated this result transmitted reference range : 10*3/?L. The reference range was not used to interpret this result as normal/abnormal . GRAN MAT (NEUT) % 59.3 % (test code = 770-8) IMM GRAN % (test code 0.50 % = 0865800112) LYMPH % (test code = 29.6 % 736-9) MONO % (test code = 5.9 % 5905-5) EOS % (test code = 4.2 % 713-8) BASO % (test code = 0.5 % 706-2) GRAN MAT x10^3(ANC) 3.70 10*3/uL 1.88-7.09 (test code = 8326646477) IMM GRAN x10^3 (test 0.03 10*3/uL 0.00-0.06 code = 7062363005) LYMPH x10^3 (test code 1.85 10*3/uL 1.32-3.29 = 731-0) MONO x10^3 (test code 0.37 10*3/uL 0.33-0.92 = 742-7) EOS x10^3 (test code = 0.26 10*3/uL 0.03-0.39 711-2) BASO x10^3 (test code 0.03 10*3/uL 0.01-0.07 = 704-7) Lab Interpretation Abnormal (test code = 93719-1) [facility] HospitalCOVID[facility] (ID NOW RAPID TESTING)2020-08-22 23:50:32 Test Item Value Reference Range Interpretation Comments SARS-CoV-2 Rapid ID NOW Not Detected Not Detected (test code = 18700-7) MCKAYLA (test code = MCKAYLA) ID NOW COVID-19 Assay is an isothermal nucleic acid amplification test intended for the qualitative detection of nucleic acid from SARS-CoV-2 viral RNA in nasopharyngeal (CAMPGROUND CARETAKER) specimens. It is used under Emergency Use [...] indicated. Lab Interpretation Normal (test code = 26254-5) [facility] HospitalPO[facility]AL[facility] W SPECIFIC [id number] 19:05:00 Test Item Value Reference Range Interpretation [...] POCT U APPEAR (test code = 3267) [facility] with Mjbeuvzbyrvx6902-57-63 11:20:29 Test Item Value Reference Range Interpretation [...] RDW-SD (test code = 43.3 fL 39.0-49.9 43893-5) RDW-CV (test code = 15.3 % 12.0-15.5 788-0) PLT (test code = See_Comment [Automated 777-3) message] The system which generated this result transmit pipo reference range : 166 - 358 10*3/ ?L. The reference range was not u sed to interpret th is result as normal/abnormal . MPV (test code = 13.1 fL 9.5-12.9 H 85061-3) NRBC/100 WBC (test See_Comment [Automat ed code = 9838706058) message] The system which generated this result transmit pipo reference range : 0.0 - 10.0 /100 WBCs. The reference range was not used to interpret this result as normal/abnormal . NRBC x10^3 (test code <0.01 See_Comment [Auto mated = 7430198921) message] The system which generated this result transmit pipo reference range : 10*3/?L. The reference range was not used to interpret this result as normal/abnormal . GRAN MAT (NEUT) % 77.3 % (test code = 770-8) IMM GRAN % (test code 0.70 % = 6856947403) LYMPH % (test code = 11.4 % 736-9) MONO % (test code = 8.9 % 5905-5) EOS % (test code = 1.4 % 713-8) BASO % (test code = 0.3 % 706-2) GRAN MAT x10^3(ANC) 11.32 10*3/uL 1.88-7.09 H (test code = 9685821774) IMM GRAN x10^3 (test 0.10 10*3/uL 0.00-0.06 H code = 5197202527) LYMPH x10^3 (test code 1.67 10*3/uL 1.32-3.29 = 731-0) MONO x10^3 (test code 1.31 10*3/uL 0.33-0.92 H = 742-7) EOS x10^3 (test code = 0.20 10*3/uL 0.03-0.39 711-2) BASO x10^3 (test code 0.04 10*3/uL 0.01-0.07 = 704-7) Lab Interpretation Abnormal (test code = 32053-5) [facility] with Ayvgtdmdombt3289-56-71 11:20:29 Test Item Value Reference Range Interpretation Comments WBC (test code = See_Comment H [Automated 4690-2) message] The system which generated this result [...] RDW-SD (test code = 43.3 fL 39.0-49.9 46001-7) RDW-CV (test code = 15.3 % 12.0-15.5 788-0) PLT (test code = See_Comment [Automated 777-3) message] The system which generated this result transmit pipo reference range : 166 - 358 10*3/ ?L. The reference range was not u sed to interpret th is result as normal/abnormal . MPV (test code = 13.1 fL 9.5-12.9 H 79214-1) NRBC/100 WBC (test See_Comment [Automat ed code = 5917838194) message] The system which generated this result transmit pipo reference range : 0.0 - 10.0 /100 WBCs. The reference range was not used to interpret this result as normal/abnormal . NRBC x10^3 (test code <0.01 See_Comment [Auto mated = 3227031762) message] The system which generated this result transmit pipo reference range : 10*3/?L. The reference range was not used to interpret this result as normal/abnormal . GRAN MAT (NEUT) % 77.3 % (test code = 770-8) IMM GRAN % (test code 0.70 % = 4668869751) LYMPH % (test code = 11.4 % 736-9) MONO % (test code = 8.9 % 5905-5) EOS % (test code = 1.4 % 713-8) BASO % (test code = 0.3 % 706-2) GRAN MAT x10^3(ANC) 11.32 10*3/uL 1.88-7.09 H (test code = 3788911851) IMM GRAN x10^3 (test 0.10 10*3/uL 0.00-0.06 H code = 9136627202) LYMPH x10^3 (test code 1.67 10*3/uL 1.32-3.29 = 731-0) MONO x10^3 (test code 1.31 10*3/uL 0.33-0.92 H = 742-7) EOS x10^3 (test code = 0.20 10*3/uL 0.03-0.39 711-2) BASO x10^3 (test code 0.04 10*3/uL 0.01-0.07 = 704-7) Lab Interpretation Abnormal (test code = 01164-6) [facility] (D) IMMUNE [id number] 23:37:47 Test Item Value Reference Range Interpretation Comments RHIG CANDIDATE? No- see comment Patient i s not a (test code = candidate for R hIg- 5055) Patient is Rh Positive.Perfor med at [facility] Laboratory Services - [facility] Blood [address] [place] [address] Free: [phone] A No. [id number] [facility] (D) IMMUNE [id number] 23:37:47 Test Item Value Reference Range Interpretation Comments RHIG CANDIDATE? No- see comment Patient i s not a (test code = candidate for R hIg- 5055) Patient is Rh Positive.Perfor med at [facility] Laboratory Services - [facility] Blood [id number] [place], [place] [address]Toll Free: [phone] A No. [id number] [facility] ONLY - SYPHILIS [id number] 15:58:05 Test Item Value Reference Range Interpretation Comments Syphilis IgG/IgM (test Non-reactive Non-reactive code = 88963-7) MCKAYLA (test code = MCKAYLA) Non-reactive - No serologic evidence of T. pallidum infection. Cannot exclude incubating or early syphilis. Submit a second specimen in 2-4 weeks if syphilis is clinically suspected. Equivocal - Further testing to follow. Reactive - Further testing to follow. Lab Interpretation (test Normal code = 48142-1) [facility] SY[facility]IL[facility] IGG/[id number] 15:58:05 Test Item Value Reference Range Interpretation Comments Syphilis IgG/IgM (test Non-reactive Non-reactive code = 18662-0) MCKAYLA (test code = MCKAYLA) Non-reactive - No serologic evidence of T. pallidum infection. Cannot exclude incubating or early syphilis. Submit a second specimen in 2-4 weeks if syphilis is clinically suspected. Equivocal - Further testing to follow. Reactive - Further testing to follow. Lab Interpretation (test Normal code = 84432-0) [facility] [id number] 02:47:53COVID DMT InterpretationInterpretation/Recommendations:Molecular NAAT Tests for Active [...] the patient has produced antibodies to the KLCB-MaU-6fpjil. However, some patients may take longer to develop detectable antibodies, while some patients who were infected with SARS-CoV-2 may never develop antibodies. While antibodies to SARS-CoV-2 may provide some degree of immunity, at this time the strength and duration of the antibody response is unknown. Interpretation Result Comments:These interpretation comments are based upon all COVID-19 testing the patient has had at [facility], including molecular NAAT testing (more commonly known as PCR testing and Rapid ID Now testing) andantibody testing. It does not take into account any testing that a patient has had outside of the [facility] medical record. [facility] LABORATORY SERVICESCOVID UeakvrsDIZS-BrQ-5 Rapid ID NOW (no units) ? ? Date ? Value ? 08/14/2020 ? Not Detected ? ? ? 07/03/2020 ? Positive (A) ? ? ? 06/27/2020 ? Not Detected ? ? ? 05/30/2020 ? Not Detected ? CoV-2 IgG (no units) ? ? Date ? Value ? 01/24/2020 ? Negative ? ? ? [facility]ATORY SERVICESTexas [facility] HospitalLAB ONLY COVID [id number] 02:47:53COVID DMT InterpretationInterpretation/Recommendations:Molecular NAAT Tests for Active [...] the patient has produced antibodies to the EXSC-AbJ-1soqlj. However, some patients may take longer to develop detectable antibodies, while some patients who were infected with SARS-CoV-2 may never develop antibodies. While antibodies to SARS-CoV-2 may provide some degree of immunity, at this time the strength and duration of the antibody response is unknown. Interpretation Result Comments:These interpretation comments are based upon all COVID-19 testing the patient has had at [facility], including molecular NAAT testing (more commonly known as PCR testing and Rapid ID Now testing) andantibody testing. It does not take into account any testing that a patient has had outside of the [facility] medical record. [facility] LABORATORY SERVICESCOVID VvyuzoxRZJG-RgS-1 Rapid ID NOW (no units) ? ? Date ? Value ? 08/14/2020 ? Not Detected ? ? ? 07/03/2020 ? Positive (A) ? ? ? 06/27/2020 ? Not Detected ? ? ? 05/30/2020 ? Not Detected ? CoV-2 IgG (no units) ? ? Date ? Value ? 01/24/2020 ? Negative ? ? ? [facility]ATORY SERVICESTexas [facility] HospitalCentral Neuraxial Block 2020-08-15 02:09:12Reynaldo Jennings MD ? ? 08/14/2020 ?9:10 PM Central Neuraxial Block Performed by: Reynaldo Jennings MDAuthorized by: Damion Zeng MD Start Time: ?08/14/2020 9:09 PMEnd Time: ?08/14/2020 9:09 PMReason for Block: ?Patient requestStaff: ?Anesthesiologist: ?Damion Zeng MD ?Resident/CLINICAL CYTOGENETICIST SCIENTIST: ?Reynaldo Jennings MD ?Performed by: ?Resident/CLINICAL CYTOGENETICIST SCIENTIST patient identified, IV checked, risks and benefits explained, monitors and equipment checked, timeout performed, ob surgical consent/approval, pre-op evaluation, surgical consent, site marked and anesthesia consentEpidural: ?Patient Position: ?Sitting ?Prep: Betadine ? ?Monitoring:?Continuous pulse ox, heart rate and NIBP ?Location: ?Lumbar (1-5) ?Lumbar: ?L3-L4 ?Approach: ?MidlineNeedle and Epidural Catheter: ?Epidural Kit: ?BBraun ?Needle Type: ?Tuohy ?Needle Length: ?3.5 in (8.89 cm) ?Needle Insertion Depth: ?7 Assessment: ?Sensory Level: ?Above Q47Qnqti: ? Patient prepped and draped in sterile fashion. ?Appropriate lumbar level was identified and lidocaine was injected into subcutaneous tissue. ?Epidural attempt x 1. Touhy introduced with loss of resistance and catheter placed at depth listed above. Negative aspiration of CSF and test dose negative. The patient was placed at 30 degrees and connected to the epidural pump at settings below. Remote given to patient and allquestions were answered. Counseled the patient on fall risk, reyes catheter. The patient tolerated the procedure without complications. Pump Settings:Jpyqkagnzy28 mL/hrBolus: 4 mLLockout: 15 minUnTexas [facility] B Surface [id number] 22:49:33 Test Item Value Reference Range Interpretation Comments HBsAg Semi-Quantitative (test code = Negative Negative 5195-3) [facility] [id number] 22:49:33 Test Item Value Reference Range Interpretation Comments HBsAg Semi-Quantitative (test code = Negative Negative 5195-3) [facility] HospitalUric Acid [id number] 22:20:24 Test Item Value Reference Range Interpretation Comments URIC ACID (test code = 6375244705) 3.7 mg/dL 2.9-6.0 Lab Interpretation (test code = Normal 48956-7) [facility] HospitalSer [id number] 22:20:24 Test Item Value Reference Range Interpretation Comments CREATININE (test code 0.65 mg/dL 0.50-1.04 = 3554666496) eGFR (test code = mL/min/1.73m2 0118570249) MCKAYLA (test code = MCKAYLA) Association of [...] or urine or abnormalities in imaging tests). [facility] HospitalSGOT (Asparate Amino Transfer)2020-08-14 22:20:24 Test Item Value Reference Range Interpretation Comments AST(SGOT) (test code = 0908965023) 25 U/L 13-40 Lab Interpretation (test code = Normal 45701-3) [facility] HospitalUric Acid [id number] 22:20:24 Test Item Value Reference Range Interpretation Comments URIC ACID (test code = 3025603474) 3.7 mg/dL 2.9-6.0 Lab Interpretation (test code = Normal 90700-0) [facility] Mqnfejlhim2903-64-20 22:20:24 Test Item Value Reference Range Interpretation Comments CREATININE (test code 0.65 mg/dL 0.50-1.04 = 6835032845) eGFR (test code = mL/min/1.73m2 5459798036) MCKAYLA (test code = MCKAYLA) Association of [...] or urine or abnormalities in imaging tests). [facility] HospitalSGOT (Asparate Amino Transfer)2020-08-14 22:20:24 Test Item Value Reference Range Interpretation Comments AST(SGOT) (test code = 0479091337) 25 U/L 13-40 Lab Interpretation (test code = Normal 94316-9) [facility] HospitalAlanine Amino Transferase (SGPT)2020-08-14 22:20:23 Test Item Value Reference Range Interpretation Comments ALTv (test code = 1742-6) 19 U/L 5-35 Lab Interpretation (test code = Normal 14456-1) [facility] HospitalLactate Jgqpbavdecduf6333-23-89 22:20:23 Test Item Value Reference Range Interpretation Comments LDH (test code = 2723496287) 480 U/L 300-600 Lab Interpretation (test code = Normal 85283-1) [facility] HospitalAlanine Amino Transferase (SGPT)2020-08-14 22:20:23 Test Item Value Reference Range Interpretation Comments ALTv (test code = 1742-6) 19 U/L 5-35 Lab Interpretation (test code = Normal 84799-7) [facility] HospitalLactate Enfqykvawuned6573-74-05 22:20:23 Test Item Value Reference Range Interpretation Comments LDH (test code = 2645095309) 480 U/L 300-600 Lab Interpretation (test code = Normal 52028-4) [facility] HospitalProtein CREAT Ratio Urine Gmcclt0738-16-99 22:17:39 Test Item Value Reference Range Interpretation Comments T. PROT U (test code = 2888-6) 14 mg/dL CREAT U (test code = 8370198110) 76.1 mg/dL Protein/Creatinine Ratio Urine 0.0-2.0 (test code = 3595199539) [facility] HospitalProtein CREAT Ratio Urine Ksdshe3488-79-40 22:17:39 Test Item Value Reference Range Interpretation Comments T. PROT U (test code = 2888-6) 14 mg/dL CREAT U (test code = 7176685235) 76.1 mg/dL Protein/Creatinine Ratio Urine 0.0-2.0 (test code = 7133868256) [facility] HospitalType and Screen - ONCE [id number] 22:14:38 Test Item Value Reference Range Interpretation Comments ABO & RH (test code A POSITIVE Performe d at [facility] = 20) Laboratory Serv [facility] Blood [facility]3 [facility] s [address]Dkxb Free: [phone] A No. [id number] IAT (test code = Negative Performed a t [facility] 1185) Laboratory Serv [facility] Blood [facility]3 [facility] s [address]Vmvk Free: [phone] A No. [id number] [facility] HospitalType and Screen - ONCE [id number] 22:14:38 Test Item Value Reference Range Interpretation Comments ABO & RH (test code A POSITIVE Performe d at [facility] = 20) Laboratory Serv [facility] Blood [facility] [place] [address] s [id number] Free: [phone] A No. [id number] IAT (test code = Negative Performed a t [facility] 1185) Laboratory Serv [facility] Blood [facility]3 [address] [facility] s [address]Qzhx Free: [phone] A No. [id number] [facility] HospitalUrinalysis2021-04-22 21:57:41 Test Item Value Reference Range Interpretation Comments APPEARANCE (test code = Clear Clear 4676170509) COLOR (test code = Yellow Yellow 4440862667) PH (test code = 4.8-8.0 9812583440) SP GRAVITY (test code = 1.003-1.030 8367367363) GLU U QUAL (test code = Normal Normal 3592158011) BLOOD (test code = Negative Negative 8384723483) KETONES (test code = Negative Negative 0417464637) PROTEIN (test code = Negative Negative 2887-8) UROBILIN (test code = Normal Normal 8387770519) BILIRUBIN (test code = Negative Negative 9104874928) NITRITE (test code = Negative Negative 1676300012) LEUK LORENZO (test code = Negative Negative 2241028025) RBC/HPF (test code = See_Comment [Autom ated message] 6243419106) The system [employer] generated this result transmitted ref erence range: 0 - 3 HP F. The reference range was not used to int erpret this result as normal/abnormal . WBC/HPF (test code = See_Comment [Autom ated message] 8840019592) The system [employer] generated this result transmitted ref erence range: 0 - 5 HP F. The reference range was not used to int erpret this result as normal/abnormal . BACTERIA (test code = Negative Negative 1412807545) MUCOUS (test code = Slight Negative LPF A 3182395480) SQ EPITH (test code = See_Comment [Auto mated message] 8277734526) The system [employer] generated this result transmitted ref erence range: <=2 HPF. The reference range was not used to int erpret this result as normal/abnormal . Lab Interpretation (test Abnormal code = 17318-6) [facility] HospitalUrinalysis2021-04-22 21:57:41 Test Item Value Reference Range Interpretation Comments APPEARANCE (test code = Clear Clear 2318487679) COLOR (test code = Yellow Yellow 8281203192) PH (test code = 4.8-8.0 1352625705) SP GRAVITY (test code = 1.003-1.030 5747749854) GLU U QUAL (test code = Normal Normal 4556228359) BLOOD (test code = Negative Negative 1434605394) KETONES (test code = Negative Negative 3527511964) PROTEIN (test code = Negative Negative 2887-8) UROBILIN (test code = Normal Normal 3146283996) BILIRUBIN (test code = Negative Negative 1532511807) NITRITE (test code = Negative Negative 9133641343) LEUK LORENZO (test code = Negative Negative 8823556174) RBC/HPF (test code = See_Comment [Autom ated message] 0797638921) The system [employer] generated this result transmitted ref erence range: 0 - 3 HP F. The reference range was not used to int erpret this result as normal/abnormal . WBC/HPF (test code = See_Comment [Autom ated message] 8228190567) The system [employer] generated this result transmitted ref erence range: 0 - 5 HP F. The reference range was not used to int erpret this result as normal/abnormal . BACTERIA (test code = Negative Negative 7226674665) MUCOUS (test code = Slight Negative LPF A 1052823178) SQ EPITH (test code = See_Comment [Auto mated message] 9432237847) The system [employer] generated this result transmitted ref erence range: <=2 HPF. The reference range was not used to int erpret this result as normal/abnormal . Lab Interpretation (test Abnormal code = 39432-8) [facility] HospitalCB with Jzxujldfiyes4651-31-92 21:52:33 Test Item Value Reference Range Interpretation [...] RDW-SD (test code = 43.8 fL 39.0-49.9 33900-9) RDW-CV (test code = 15.6 % 12.0-15.5 H 788-0) PLT (test code = See_Comment [Automated 777-3) message] The sy stem which generated this result transmitted reference range : 166 - 358 10*3/ ?L. The reference r christiano was not used to interpret this result as normal/abnormal . MPV (test code = 12.8 fL 9.5-12.9 43396-2) NRBC/100 WBC (test See_Comment [Automat ed code = 8557892100) message] The system which generated this result transmitted reference range : 0.0 - 10.0 /100 WBCs. The refer ence range was not u sed to interpret th is result as normal/abnormal . NRBC x10^3 (test code <0.01 See_Comment [Auto mated = 3964299228) message] The s ystem which generated this result transmitted reference range : 10*3/?L. The reference range was not used to interpret this result as normal/abnormal . GRAN MAT (NEUT) % 69.8 % (test code = 770-8) IMM GRAN % (test code 0.70 % = 9309533329) LYMPH % (test code = 18.8 % 736-9) MONO % (test code = 9.4 % 5905-5) EOS % (test code = 1.1 % 713-8) BASO % (test code = 0.2 % 706-2) GRAN MAT x10^3(ANC) 6.14 10*3/uL 1.88-7.09 (test code = 8979262300) IMM GRAN x10^3 (test 0.06 10*3/uL 0.00-0.06 code = 4195837343) LYMPH x10^3 (test code 1.66 10*3/uL 1.32-3.29 = 731-0) MONO x10^3 (test code 0.83 10*3/uL 0.33-0.92 = 742-7) EOS x10^3 (test code = 0.10 10*3/uL 0.03-0.39 711-2) BASO x10^3 (test code <0.03 0.01-0.07 = 704-7) Lab Interpretation Abnormal (test code = 35502-9) [facility] with Eecnhuwakcib5140-69-28 21:52:33 Test Item Value Reference Range Interpretation [...] RDW-SD (test code = 43.8 fL 39.0-49.9 56267-4) RDW-CV (test code = 15.6 % 12.0-15.5 H 788-0) PLT (test code = See_Comment [Automated 777-3) message] The sy stem which generated this result transmitted reference range : 166 - 358 10*3/ ?L. The reference r christiano was not used to interpret this result as normal/abnormal . MPV (test code = 12.8 fL 9.5-12.9 80043-3) NRBC/100 WBC (test See_Comment [Automat ed code = 2950667467) message] The system which generated this result transmitted reference range : 0.0 - 10.0 /100 WBCs. The refer ence range was not u sed to interpret th is result as normal/abnormal . NRBC x10^3 (test code <0.01 See_Comment [Auto mated = 8821197414) message] The s ystem which generated this result transmitted reference range : 10*3/?L. The reference range was not used to interpret this result as normal/abnormal . GRAN MAT (NEUT) % 69.8 % (test code = 770-8) IMM GRAN % (test code 0.70 % = 9339801814) LYMPH % (test code = 18.8 % 736-9) MONO % (test code = 9.4 % 5905-5) EOS % (test code = 1.1 % 713-8) BASO % (test code = 0.2 % 706-2) GRAN MAT x10^3(ANC) 6.14 10*3/uL 1.88-7.09 (test code = 8543504423) IMM GRAN x10^3 (test 0.06 10*3/uL 0.00-0.06 code = 5050221223) LYMPH x10^3 (test code 1.66 10*3/uL 1.32-3.29 = 731-0) MONO x10^3 (test code 0.83 10*3/uL 0.33-0.92 = 742-7) EOS x10^3 (test code = 0.10 10*3/uL 0.03-0.39 711-2) BASO x10^3 (test code <0.03 0.01-0.07 = 704-7) Lab Interpretation Abnormal (test code = 85007-5) [facility] HospitalCOVID[facility] (ID NOW RAPID TESTING)2020-08-14 20:08:02 Test Item Value Reference Range Interpretation Comments SARS-CoV-2 Rapid ID NOW Not Detected Not Detected (test code = 56677-5) MCKAYLA (test code = MCKAYLA) ID NOW COVID-19 Assay is an isothermal nucleic acid amplification test intended for the qualitative detection of nucleic acid from SARS-CoV-2 viral RNA in nasopharyngeal (CAMPGROUND CARETAKER) specimens. It is used under Emergency Use Authorization (EUA) by [facility]. The limit of detection (LOD) of the [...] indicated. Lab Interpretation Normal (test code = 34642-1) [facility] HospitalCOVID[facility] (ID NOW RAPID TESTING)2020-08-14 20:08:02 Test Item Value Reference Range Interpretation Comments SARS-CoV-2 Rapid ID NOW Not Detected Not Detected (test code = 98350-8) MCKAYLA (test code = MCKAYLA) ID NOW COVID-19 Assay is an isothermal nucleic acid amplification test intended for the qualitative detection of nucleic acid from SARS-CoV-2 viral RNA in nasopharyngeal (CAMPGROUND CARETAKER) specimens. It is used under Emergency Use Authorization (EUA) by [facility]. The limit of detection (LOD) of the [...] indicated. Lab Interpretation Normal (test code = 71209-3) [facility] URINALYSIS W SPECIFIC [id number] 15:53:00 Test Item Value Reference Range Interpretation [...] . Lab Interpretation (test code = Normal 48392-0) [facility] URINALYSIS W SPECIFIC [id number] 19:15:00 Test Item Value Reference Range Interpretation [...] POCT U APPEAR (test code = 3267) [facility] URINALYSIS W SPECIFIC [id number] 16:27:00 Test Item Value Reference Range Interpretation [...] POCT U APPEAR (test code = 3267) [facility] HospitalURINALYSIS2021-03-11 22:52:24 Test Item Value Reference Range Interpretation Comments APPEARANCE (test code = Hazy Clear A 2873294385) COLOR (test code = Yellow Yellow 2708607357) PH (test code = 4.8-8.0 9528336361) SP GRAVITY (test code = 1.003-1.030 5574360123) GLU U QUAL (test code = Normal Normal 6517107925) BLOOD (test code = Negative Negative Interfere nce from 3502048161) ascorbic acid m ay cause false neg ative results. KETONES (test code = 5 mg/dL Negative A 7604963746) PROTEIN (test code = Negative Negative 2887-8) UROBILIN (test code = Normal Normal 4950358108) BILIRUBIN (test code = Negative Negative 1468687450) NITRITE (test code = Negative Negative 9270994413) LEUK LORENZO (test code = 25/uL Negative A 9446861790) RBC/HPF (test code = See_Comment [Autom ated message] 5031133636) The system [employer] generated this result transmit pipo reference range : 0 - 3 HPF. The refe rence range was not u sed to interpret th is result as normal/abnormal . WBC/HPF (test code = See_Comment [Autom ated message] 4995574919) The system [employer] generated this result transmit pipo reference range : 0 - 5 HPF. The refe rence range was not u sed to interpret th is result as normal/abnormal . BACTERIA (test code = Few Negative A 8615289689) MUCOUS (test code = Slight Negative LPF A 5601516330) SQ EPITH (test code = See_Comment H [Auto mated message] 3022351065) The system [employer] generated this result transmit pipo reference range : <=2 HPF. The refere nce range was not u sed to interpret th is result as normal/abnormal . ASCORBIC ACID (test 40 mg/dL++ code = 5833119086) Lab Interpretation Abnormal (test code = 78865-5) [facility] (ID NOW RAPID TESTING)2020-07-03 22:06:55 Test Item Value Reference Range Interpretation Comments SARS-CoV-2 Rapid ID NOW Positive Not Detected A (test code = 04358-4) MCKAYLA (test code = MCKAYLA) ID NOW COVID-19 Assay is an isothermal nucleic acid amplification test intended for the qualitative detection of nucleic acid from SARS-CoV-2 viral RNA in nasopharyngeal (CAMPGROUND CARETAKER) specimens. It is used under Emergency Use [...] indicated. Lab Interpretation Abnormal (test code = 14842-7) [facility] (ID NOW RAPID TESTING)2020-06-28 01:35:00 Test Item Value Reference Range Interpretation Comments SARS-CoV-2 Rapid ID NOW Not Detected Not Detected (test code = 79832-6) MCKAYLA (test code = MCKAYLA) ID NOW COVID-19 Assay is an isothermal nucleic acid amplification test intended for the qualitative detection of nucleic acid from SARS-CoV-2 viral RNA in nasopharyngeal (CAMPGROUND CARETAKER) specimens. It is used under Emergency Use [...] indicated. Lab Interpretation Normal (test code = 12388-3) [facility] CLC OR L[facility] ONLY - WET [id number] 01:28:00 Test Item Value Reference Range Interpretation Comments CLUE CELLS WET PREP (test code = Moderate None Seen HPF A 9759247793) BACTERIA WET PREP (test code = Many None Seen HPF A 4406529259) WBC WET PREP (test code = Moderate None Seen HPF A 1205016748) RBC WET PREP (test code = Few None Seen HPF A 2665072978) TRICHOMONAS WET PREP (test code = None Seen None Seen HPF 6681628127) YEAST WET PREP (test code = None Seen None Seen HPF 2845037833) Lab Interpretation (test code = Abnormal 10025-6) [facility] ONLY - FERN [id number] 01:26:00 Test Item Value Reference Range Interpretation Comments Fern Test (test code = 0382869634) Negative [facility] URINALYSIS W SPECIFIC [id number] 14:31:00 Test Item Value Reference Range Interpretation [...] POCT U APPEAR (test code = 3267) [facility] URINALYSIS W SPECIFIC [id number] 22:23:00 Test Item Value Reference Range Interpretation [...] 3267) Lab Interpretation (test code = Abnormal 49674-2) [facility] URINALYSIS W SPECIFIC [id number] 22:23:00 Test Item Value Reference Range Interpretation [...] (test code = . Negative - Negative 3257) POCT U COLOR (test code = 3266) POCT U APPEAR (test code = 3267) [facility] URINALYSIS W SPECIFIC [id number] 22:22:00 Test Item Value Reference Range Interpretation [...] POCT U APPEAR (test code = 3267) [facility] (ID NOW RAPID TESTING)2020-05-30 19:18:00 Test Item Value Reference Range Interpretation Comments SARS-CoV-2 Rapid ID NOW Not Detected Not Detected (test code = 75199-5) MCKAYLA (test code = MCKAYLA) ID NOW COVID-19 Assay is an isothermal nucleic acid amplification test intended for the qualitative detection of nucleic acid from SARS-CoV-2 viral RNA in nasopharyngeal (CAMPGROUND CARETAKER) specimens. It is used under Emergency Use [...] indicated. Lab Interpretation Normal (test code = 95310-3) [facility] HospitalTroponin [id number] 19:12:00 Test Item Value Reference Range Interpretation Comments TROPONIN I (test <0.012 See_Comment [Automated code = 7256452843) message] The system which generated this result [...] ? Lab Interpretation Normal (test code = 76187-6) [facility] HospitalN-TERMINAL [id number] 19:09:00 Test Item Value Reference Range Interpretation Comments NT-proBNP (test code 32 pg/mL See_Comment [Autom ated = 5456697017) message] The system which generated this result transmitted reference range : <=125. The reference range was not used to interpret this result as normal/abnormal . MCKAYLA (test code = MCKAYLA) Biotin has been reported to cause a negative bias, interpret results relative to patient's use of biotin. Lab Interpretation Normal (test code = 70459-6) [facility] HospitalBasi Metabolic Panel (NA, K, CL, CO2, GLUCOSE, BUN, CREATININE, CA)2020-05-30 19:00:00 Test Item Value Reference Range Interpretation Comments NA (test code = 135 mmol/L 135-145 8479148337) K (test code = 3.3 mmol/L 3.5-5 L 3938621603) CL (test code = 106 mmol/L 98-108 2539647475) CO2 TOTAL (test code = 24 mmol/L 23-31 4984219596) AGAP (test code = 2-16 6059922371) BUN (test code = 8 mg/dL 7-23 4830784215) GLUCOSE (test code = 109 mg/dL 70-110 2688683378) CREATININE (test code = 0.59 mg/dL 0.5-1.04 1105561686) CALCIUM (test code = 9.2 mg/dL 8.6-10.6 4673731770) eGFR Calculation mL/min/1.73m2 (Non-) (test code = 0849903240) eGFR Calculation mL/min/1.73m2 () (test code = 6843084872) MCKAYLA (test code = MCKAYLA) Association of [...] tests). Lab Interpretation Abnormal (test code = 11441-8) [facility] (ALB, T.PRO, BILI T, BU/BC, ALT, AST, ALK PHOS)2020-05-30 19:00:00 Test Item Value Reference Range Interpretation Comments TOTAL BILI (test code = 7140664663) 0.3 mg/dL 0.1-1.1 BILI UNCON (test code = 6240804739) 0.3 mg/dL 0.1-1.1 BILI CONJ (test code = 6830753201) 0.0 mg/dL 0-0.3 T PROTEIN (test code = 9807922021) 6.4 g/dL 6.3-8.2 ALBUMIN (test code = 3577221097) 3.4 g/dL 3.5-5 L ALK PHOS (test code = 7518758885) 106 U/L 34-122 ALTv (test code = 1742-6) 11 U/L 5-35 AST(SGOT) (test code = 9549813228) 18 U/L 13-40 Lab Interpretation (test code = Abnormal 62279-2) [facility] [id number] 19:00:00 Test Item Value Reference Range Interpretation Comments LIPASE (test code = 6413862919) 40 U/L 0-220 Lab Interpretation (test code = Normal 12739-2) [facility] 18:58:00 Test Item Value Reference Range Interpretation Comments APPEARANCE (test code = Hazy Clear A 3820090684) COLOR (test code = Yellow Yellow 1667335160) PH (test code = 4.8-8.0 6838096638) SP GRAVITY (test code = 1.003-1.030 6324676183) GLU U QUAL (test code = 500 mg/dL Normal A 9032538375) BLOOD (test code = Negative Negative INTERFERE NCE FROM 0561672812) ASCORBIC ACID M AY CAUSE FALSE NEG ATIVE RESULT KETONES (test code = 5 mg/dL Negative A 0668025985) PROTEIN (test code = Negative Negative 2887-8) UROBILIN (test code = 2.0 mg/dL Normal A 3151539340) BILIRUBIN (test code = Negative Negative 0038921519) NITRITE (test code = Negative Negative 4529836113) LEUK LORENZO (test code = Negative Negative 8274521969) RBC/HPF (test code = See_Comment [Autom ated message] 3255599677) The system [employer] generated this result transmitted ref erence range: 0 - 3 HP F. The reference range was not used to int erpret this result as normal/abnormal . WBC/HPF (test code = See_Comment [Autom ated message] 5345045173) The system [employer] generated this result transmitted ref erence range: 0 - 5 HP F. The reference range was not used to int erpret this result as normal/abnormal . BACTERIA (test code = Few Negative A 8611696153) MUCOUS (test code = Moderate Negative LPF A 6456479692) SQ EPITH (test code = HPF 9991286077) Lab Interpretation Abnormal (test code = 94465-2) [facility]-[id number] 18:53:00 Test Item Value Reference Interpretation Comments Range D-DIMER (test code = See_Comment H [Autom ated 5772072735) message] The system which generated this result [...] diagnosis. Lab Interpretation Abnormal (test code = 74335-2) [facility] with [id number] 18:39:00 Test Item Value Reference Range Interpretation Comments WBC (test code = See_Comment [Automated 9389-2) message] The sy stem which generated this [...] RDW-SD (test code = 41.8 fL 39-49.9 31996-3) RDW-CV (test code = 14.6 % 12-15.5 788-0) PLT (test code = See_Comment [Automated 777-3) message] The sy stem which generated this result transmitted reference range : 166 - 358 10*3/ ?L. The reference r christiano was not used to interpret this result as normal/abnormal . MPV (test code = 12.0 fL 9.5-12.9 43967-9) NRBC/100 WBC (test See_Comment [Automat ed code = 9170488036) message] The system which generated this result transmitted reference range : 0.0 - 10.0 /100 WBCs. The refer ence range was not u sed to interpret th is result as normal/abnormal . NRBC x10^3 (test code <0.01 See_Comment [Auto mated = 7739603621) message] The s ystem which generated this result transmitted reference range : 10*3/?L. The reference range was not used to interpret this result as normal/abnormal . GRAN MAT (NEUT) % 77.1 % (test code = 770-8) IMM GRAN % (test code 0.70 % = 4448955117) LYMPH % (test code = 14.5 % 736-9) MONO % (test code = 6.3 % 5905-5) EOS % (test code = 1.2 % 713-8) BASO % (test code = 0.2 % 706-2) GRAN MAT x10^3(ANC) 7.56 10*3/uL 1.88-7.09 H (test code = 7617368101) IMM GRAN x10^3 (test 0.07 10*3/uL 0-0.06 H code = 5772071238) LYMPH x10^3 (test code 1.42 10*3/uL 1.32-3.29 = 731-0) MONO x10^3 (test code 0.62 10*3/uL 0.33-0.92 = 742-7) EOS x10^3 (test code = 0.12 10*3/uL 0.03-0.39 711-2) BASO x10^3 (test code <0.03 0.01-0.07 = 704-7) Lab Interpretation Abnormal (test code = 20020-0) [facility] URINALYSIS W SPECIFIC [id number] 20:25:00 Test Item Value Reference Range Interpretation [...] POCT U APPEAR (test code = 3267) [facility] URINALYSIS W SPECIFIC [id number] 22:14:00 Test Item Value Reference Range Interpretation [...] POCT U APPEAR (test code = 3267) [facility] URINALYSIS W SPECIFIC [id number] 17:06:00 Test Item Value Reference Range Interpretation [...] POCT U APPEAR (test code = 3267) [facility] URINALYSIS W SPECIFIC [id number] 16:44:00 Test Item Value Reference Range Interpretation [...] POCT U APPEAR (test code = 3267) [facility] [id number] 19:26:00 Test Item Value Reference Range Interpretation Comments POCT PREG (test code = 1605) Positive On board controls acceptable with C Yes Line (test code = 3574) POCT PREG LOT # (test code = 3575) POCT PREG TEST DATE (test code = 3576) [facility] URINALYSIS W/O SPECIFIC [id number] 19:26:00 Test Item Value Reference Range Interpretation [...] code = 3257) Neg Negative - Negative [facility] [id number] 10:00:00 Test Item Value Reference Range Interpretation Comments CULTURE (BEAKER) (test No growth in 5 days code = 1095) BLOOD [id number] 10:00:00 Test Item Value Reference Range Interpretation Comments CULTURE (BEAKER) (test No growth in 5 days code = 1095) CAMI TITER AND [id number] 09:54:00 Test Item Value Reference Range Interpretation Comments CAMI TITER (BEAKER) (test code = :640 1541) CAMI PATTERN (BEAKER) (test code = Nucleolar 1781) ANTI-NUCLEAR ANTIBODY (CAMI)2019-07-12 09:53:00 Test Item Value Reference Range Interpretation Comments ANTI-NUCLEAR ANTIBODY (CAMI) (BEAKER) Positive Negative A (test code = 418) Test performed by IFA method.ANTI-MITOCHONDRIAL AB, REFLEX TO [id number] 08:58:00 Test Item Value Reference Range Interpretation Comments SCAN RESULT (test code = 9182025) TISSUE [id number] 17:32:00Surgical Pathology Report Case: [id number] Authorizing Provider: Pauline Ferrara MD Collected: 07/09/2019 1729 Ordering Location: [address] Received: 07/10/2019 0902 Service Pathologist: Babak Hermosillo MD Specimens: A) - Biopsy, Liver B) - Gallbladder A. LIVER BIOPSY- PORTAL TRACTS WITHMILD CHRONIC INFLAMMATION- NO SIGNIFICANT STEATOSIS SEEN- NO LOBULAR INFLAMMATION OR BALLOONING DEGENERATION SEEN- NO SIGNIFICANT FIBROSIS SEEN- NO STAINABLE IRON - SEE COMMENTB. GALLBLADDER, CHOLECYSTECTOMY- CHRONIC CHOLECYSTITIS- CHOLELITHIASIS Signing Pathologist Direct Phone Line: [phone] signed by Babak Hermosillo MD on 07/11/2019 at 5:32 PMClinical correlation with serology is recommended.92774, 45868, 52237 X 4Biliary calculus of other site with [...] in length x 0.3 cm in diameter a ttached cystic duct. The serosa is green-pink, smooth and hyperemic. The specimen is opened to reveal approximately 2 mL of green bile and a 1.0 x 0.4 x 0.3 cm aggregate of yellow bosselated calculi. There are no calculi lodged within the cystic duct. The mucosa is amos-pink, trabeculated and displays a moderate amount of yellow stippling. The wall measures 0.3 cm thick. Warehouse Stock Clerk sections are submitted in B1-B2, with the inked cystic duct margin in B1. PA/ew Performed.The interpretation of thiscase included the use of immunohistochemistry or special stains on block A.Trichrome- no significant fibrosis reticulin- normal xuazctxkgcQxfd-xjyneycrNSB-L- no abnormal intracellular depositsControl Slides Examined: In-house known positive controls were evaluated along with the test tissue. These control slides run alongside of the patients sample show appropriate staining. Internal positive and negative controls when available are evaluated Immunohistochemistry technical testing was performed at [facility], Pathology Laboratory where it was developed and its performance characteristics were determined. It has not been cleared or approved by the U.S. Food and Drug Administration. The FDA has determined that such clearance or approval is not necessary. The test is used for clinical purposes. It should not be regarded as investigational or for research. This laboratory is certified under the Clinical Laboratory Improvement Amendments of 1988 (CLIA-88) as qualified to perform high complexity clinical laboratory testing.[facility], Department of Pathology, [address] [place] [address], [facility], [facility] of [facility], [address] [place] [address], [facility]Santa [facility], Department of Pathology, [address] [place] [address], JYKGYCI FUNCTION PANEL 2019-07-10 05:21:00 Test Item Value [...] code = 314 U/L 6-55 H 347) Web Content Director ID - JACOBY MBASIC METABOLIC [id number] 05:21:00 Test Item Value Reference Range Interpretation [...] S NOT APPLICABLE FOR DIALYSIS PATIEN TS. Web Content Director ID - JACOBY MCBC W/PLT COUNT & AUTO [id number] 04:52:00 Test Item Value Reference Range Interpretation [...] PERCENT (BEAKER) (test code = 2801) POCT-GLUCOSE [id number] 21:29:00 Test Item Value Reference Range Interpretation Comments POC-GLUCOSE METER 99 mg/dL 70-110 : TESTED A T [facility] 6720 (BEAKER) (test code = [facility], 153) [address]: Web Content Director/Techni angelita ID = [id number] for LAUREZACH GuerreroLYN POCT-GLUCOSE [id number] 18:23:00 Test Item Value Reference Range Interpretation Comments POC-GLUCOSE METER 109 mg/dL 70-110 : TESTED A T [facility] 6720 (BEAKER) (test code = [facility], 153) 16250: Web Content Director/Techni angelita ID = [id number] for ALEJO YASIRHERMAN POCT-GLUCOSE [id number] 12:24:00 Test Item Value Reference Range Interpretation Comments POC-GLUCOSE METER 79 mg/dL 70-110 : TESTED A T [facility] 6720 (BEAKER) (test code = [facility], 153) [address]: Web Content Director/Techni angelita ID = [id number] for DONNA SAMMY LORENZANAY POCT-GLUCOSE [id number] 10:15:00 Test Item Value Reference Range Interpretation Comments POC-GLUCOSE METER 84 mg/dL 70-110 : TESTED A T [facility] 6720 (BEAKER) (test code = [facility], 153) 111[address]: Web Content Director/Techni angelita ID = [id number] for FOUZIA FLOWER [id number] 07:13:00 Test Item Value Reference Range Interpretation Comments LIPASE (BEAKER) (test code = 749) 11 U/L 8-78 Web Content Director ID - DAINA FHEPATIC FUNCTION [id number] 05:52:00 Test Item Value Reference Range Interpretation [...] code = 388 U/L 6-55 H 347) Web Content Director ID - JACOBY MBASIC METABOLIC [id number] 05:52:00 Test Item Value Reference Range Interpretation [...] S NOT APPLICABLE FOR DIALYSIS PATIEN TS. Web Content Director ID - JACOBY MCBC W/PLT COUNT & AUTO [id number] 05:16:00 Test Item Value Reference Range Interpretation [...] PERCENT (BEAKER) (test code = 2801) PROTHROMBIN [id number] 05:12:00 Test Item Value Reference Range Interpretation [...] is 2.5-3.5 for patients wiht mechanical heart valves.POCT-GLUCOSE [id number] 22:53:00 Test Item Value Reference Range Interpretation Comments POC-GLUCOSE METER 106 mg/dL 70-110 : TESTED A T [facility] 6720 (Cellabus) (test code = [facility] [employer] [facility], 1538) 583[address]: Web Content Director/Techni angelita ID = [id number] for LAISHA PALENCIA HEMOGLOBIN [id number] 19:49:00 Test Item Value Reference Range Interpretation Comments HEMOGLOBIN A1C (ALBERTO) (test code = 5.2 % 4.3-6.1 368) POCT-GLUCOSE [id number] 18:29:00 Test Item Value Reference Range Interpretation Comments POC-GLUCOSE METER 107 mg/dL 70-110 : TESTED A T [facility] 6720 (Cellabus) (test code = [facility] [employer] [facility], 153) [address]: Web Content Director/Techni angelita ID = [id number] for AUGUSTUSRUBENIvonVAN ERWIN [id number] 15:50:00 Test Item Value Reference Range Interpretation Comments LIPASE (BEAKER) (test code = 749) 12 U/L 8-78 Web Content Director ID - BSPOCT-GLUCOSE [id number] 12:24:00 Test Item Value Reference Range Interpretation Comments POC-GLUCOSE METER 85 mg/dL 70-110 : TESTED A T [facility] 6720 (Cellabus) (test code = QUITA Russo [facility], 1538) [address]: Web Content Director/Techni angelita ID = [id number] for JORGE-ERWIN VAN FL, FLUORO, NON-SPECIFIC, UP TO 1 [id number] 10:29:00Reason for exam:->ercpFINAL REPORT A fluoroscopic unit was utilized for a procedure performed in the operating room. No interpretation was requested. Please refer to the operative report regarding findings. Please refer to PACS for patient radiation dose information. Signed: JR Bryon, Jose Maria Craig Verified Date/Time: 07/08/2019 10:29:57 Reading Location: [address] Neuro Reading Room POCT-GLUCOSE [id number] 06:50:00 Test Item Value Reference Range Interpretation Comments POC-GLUCOSE METER 110 mg/dL 70-110 : TESTED A T [facility] 6720 ([facility]) (test code = QUITA Russo [facility], 1538) 59[address]: Web Content Director/Techni angelita ID = [id number] for MM, MALIHA U/S, ABDOMINAL, [id number] 05:50:00Abdomen limited area? Add comment if clarification is needed.->LiverReason for exam:->elevatedLFTsFINAL REPORT History: Elevated LFTs Abdominal ultrasound dated 09/07/2019 Comparison: None Comment: Real-time transabdominal ultrasound of the right upper quadrant abdomen was performed. The examination is limited by bowel gas. Liver: 14.5 cm , normal. Normal echogenicity. No focallesions. Gallbladder: Gallbladder sludge. No definite gallstones. There is mild bilateral thickening, measuring 3.5 mm. No perocholecystic fluid.. Sonographic Kelley's sign was elicited. The transversediameter of the gallbladder lumen is 2.3 cm. Biliary tree: No intrahepatic ductal dilatation. CBD: 5.5 mm. MPV: 8 mm Pancreas: Obscured by bowel gas Right kidney: 11.1 x 6.5 x 7.1 cm. Normal echogenicity. There is a 4.9 cm upper pole parapelvic cyst or focal dilated calyx. Otherwise no hydronephrosis.No ascites is present in the abdomen. The visualized abdominal aorta is normal in caliber. The IVC and Hepatic veins are patent. Impression: Limited examination, as described. Gallbladder sludge but nodefinite gallstones. There is gallbladder wall thickening and a sonographic Kelley sign was elicited. These findings are nonspecific but in the context of a recently performed hepatobiliary nuclear medicine imaging scan suggest the possibility of chronic cholecystitis. Signed: Yarelis Danielle MDReport Verified Date/Time: 07/08/2019 05:50:43 TIC FUNCTION [id number] 05:40:00 Test Item Value Reference Range Interpretation [...] code = 501 U/L 6-55 H 347) Web Content Director ID - JACOBY MBASIC METABOLIC [id number] 05:40:00 Test Item Value Reference Range Interpretation [...] S NOT APPLICABLE FOR DIALYSIS PATIEN TS. Web Content Director ID - JACOBY MCBC W/PLT COUNT & AUTO [id number] 05:33:00 Test Item Value Reference Range Interpretation [...] PERCENT (BEAKER) (test code = 2801) PROTHROMBIN [id number] 05:26:00 Test Item Value Reference Range Interpretation [...] is 2.5-3.5 for patients wiht mechanical heart valves.FGBKY-0-[id number] 21:54:00 Test Item Value Reference Range Interpretation Comments ALPHA-1 ANTITRYPSIN (PEDROAKER) 133.40 mg/dL 90.00-200.00 (test code = 502) Web Content Director ID - VINITA EIMMUNOGLOBULIN G (IGG)2019-07-07 21:44:00 Test Item Value Reference Range Interpretation Comments IMMUNOGLOBULIN G (IGG) (PEDROAKER) 1269 mg/dL 540-1,822 (test code = 427) Web Content Director ID - VINITA EPOCT-GLUCOSE [id number] 21:43:00 Test Item Value Reference Range Interpretation Comments POC-GLUCOSE METER 75 mg/dL 70-110 : TESTED A T [facility] 6720 (ALBERTO) (test code = [place], 1538) 54[address]: Web Content Director/Techni angelita ID = [id number] for MALIHA KELSEY HEPATITIS A ANTIBODY, [id number] 20:00:00 Test Item Value Reference Range Interpretation Comments HEPATITIS A IGG ANTIBODY (BEAKER) Reactive Nonreactive A (test code = 2797) Web Content Director ID - VINITA EPREGNANCY SCREEN, [id number] 19:59:00 Test Item Value Reference Range Interpretation Comments TEST URINE (BEAKER) (test Negative code = 583) HEPATITIS B SURFACE [id number] 19:52:00 Test Item Value Reference Range Interpretation Comments HEPATITIS B SURFACE ANTIBODY 26.5 mIU/mL <8.0 H (BEAKER) (test code = 647) Web Content Director ID - VINITA EHEPATITIS B CORE ANTIBODY, [id number] 19:52:00 Test Item Value Reference Range Interpretation Comments HEPATITIS B CORE TOTAL ANTIBODY Nonreactive Nonreactive (BEAKER) (test code = 497) Web Content Director ID - VINITA EHEPATITIS PANEL, [id number] 19:52:00 Test Item Value Reference Range Interpretation Comments HEPATITIS A IGM ANTIBODY (BEAKER) Nonreactive Nonreactive (test code = 498) HEPATITIS B CORE IGM ANTIBODY Nonreactive Nonreactive (BEAKER) (test code = 645) HEPATITIS C ANTIBODY (BEAKER) Nonreactive Nonreactive (test code = 367) HEPATITIS B SURFACE ANTIGEN (2) Nonreactive Nonreactive (BEAKER) (test code = 2585) Web Content Director ID Ivon TALAMANTES EPOCT-GLUCOSE [id number] 18:10:00 Test Item Value Reference Range Interpretation Comments POC-GLUCOSE METER 72 mg/dL 70-110 : [facility] (test [facility] = [facility], 1538) 295[address]: Web Content Director/Techni angelita ID = [id number] for ERWIN HARRISON [id number] 17:41:00 Test Item Value Reference Range Interpretation Comments FERRITIN (BEAKER) (test code = 361) 109 ng/mL 5-275 Web Content Director ID - VINITA WALE, TIBC, % SAT. (WITHOUT FERRITIN)2019-07-07 17:21:00 Test Item Value Reference Range Interpretation Comments IRON (BEAKER) (test code = 547) 98.0 ug/dL 40.0-160.0 TOTAL IRON BINDING CAPACITY 308 ug/dL 250-450 (BEAKER) (test code = 769) IRON % SATURATION (2) (BEAKER) 32 % 20-55 (test code = 2590) Web Content Director ID - VINITA EPT/[id number] 17:08:00 Test Item Value Reference Range Interpretation [...] is 2.5-3.5 for patients wiht mechanical heart valves.HEPATOBILIARY [id number] 15:52:00FINAL REPORT PROCEDURE: HEPATOBILIARY SCAN CPT CODE: 78198 INDICATION: epigastric pain, cholelithiasis PROTOCOL: 5.3 mCi of Tc- 99m mebrofenin was injected intravenously. Images of the upper abdomen were obtained for approximately 130 minutes after tracer injection. FINDINGS: Initial tracer uptake into the liver is uniform but moderately delayed. Subsequent tracer clearance from the liver is markedly delayed. There is delayed and decreased visualization of the gallbladder. Tracerappears in the small bowel. IMPRESSION: 1. Diffuse hepatocellular dysfunction with cholestasis.2. Poor gallbladder filling may be due to hepatocellular dysfunction alone, but chronic cholecystitis can not be excluded. Signed: Jas Okeefe [facility] Hospitalort Verified Date/Time: 07/07/2019 15:52:12 [id number] 14:35:00 Test Item Value Reference Range Interpretation Comments AMYLASE (BEAKER) (test code = 349) 62 U/L 25-125 Web Content Director ID - NTPSpecimen slightly [id number] 14:35:00 Test Item Value Reference Range Interpretation Comments LIPASE (BEAKER) (test code = 749) 10 U/L 8-78 Web Content Director ID - NTPSpecimen slightly ictericPOCT-GLUCOSE [id number] 12:18:00 Test Item Value Reference Range Interpretation Comments POC-GLUCOSE METER 82 mg/dL 70-110 : TESTED A T [facility] 6720 (BEAKER) (test code = QUITA [facility], 1538) 401[address]: Web Content Director/Techni angelita ID = [id number] for ERWIN HARRISON COMPREHENSIVE METABOLIC [id number] 11:57:00 Test Item Value Reference Range Interpretation [...] S NOT APPLICABLE FOR DIALYSIS PATIEN TS. Web Content Director ID - JACOBY MSpecimen slightly ictericHEPATIC FUNCTION [id number] 11:57:00 Test Item Value Reference Range Interpretation [...] code = 777 U/L 6-55 H 347) Web Content Director SHELLY - JACOBY MSpecimen slightly ictericCBC W/PLT COUNT & AUTO [id number] 11:39:00 Test Item Value Reference Range Interpretation [...] PERCENT (BEAKER) (test code = 2801) POCT-GLUCOSE [id number] 06:50:00 Test Item Value Reference Range Interpretation Comments POC-GLUCOSE METER 96 mg/dL 70-110 : TESTED A T [facility] 6720 (BEAKER) (test code = [place], 1538) [address]: Web Content Director/Techni angelita ID = [id number] for MARTELL WHITLOCK TOTAL BETA HCG [id number] 09:19:00 Test Item Value Reference Range Interpretation Comments BETA HCG (test See_Comment [Automated m essage] code = The system [facility] [facility] h [id number]) generated this result transmit pipo reference range : Non- fe male and male patien ts: <5 mIU/mL. The reference range was not used to interpret this result as normal/abnormal . MCKAYLA (test code Gestational Age ? ? = MCKAYLA) ?Range (mIU/mL) 1-10 ?Weeks ?10-75699431-87 Weeks ?26635-84437607-65 Weeks ?7418-53381059-74 Weeks ?8060-628062 Biotin has been reported to cause a negative bias, interpret results relative to patient's use of biotin. [facility] BETA HCG [id number] 05:01:00 Test Item Value Reference Range Interpretation Comments BETA HCG (test See_Comment [Automated m essage] code = The system [employer] [id number]) generated this result transmit pipo reference range : Non- fe male and male patien ts: <5 mIU/mL. The reference range was not used to interpret this result as normal/abnormal . MCKAYLA (test code Gestational Age ? ? = MCKAYLA) ?Range (mIU/mL) 1-10 ?Weeks ?66-32539167-94 Weeks ?05968-57801632-31 Weeks ?8153-47048361-69 Weeks ?1531-682127 Biotin has been reported to cause a negative bias, interpret results relative to patient's use of biotin. [facility] BETA HCG [id number] 05:01:00 Test Item Value Reference Range Interpretation Comments BETA HCG (test See_Comment [Automated m essage] code = The system [employer] [id number]) generated this result transmit pipo reference range : Non- fe male and male patien ts: <5 mIU/mL. The reference range was not used to interpret this result as normal/abnormal . MCKAYLA (test code Gestational Age ? ? = MCKAYLA) ?Range (mIU/mL) 1-10 ?Weeks ?23-72643803-85 Weeks ?12469-81871752-91 Weeks ?6712-14517925-03 Weeks ?1531-037665 Biotin has been reported to cause a negative bias, interpret results relative to patient's use of biotin. [facility] WITH [id number] 04:32:00 Test Item Value Reference Range Interpretation [...] RDW-SD (test code = 49.3 fL 39-49.9 11223-0) RDW-CV (test code = 17.1 % 12-15.5 H 788-0) PLT (test code = See_Comment [Automated 777-3) message] The sy stem which generated this result transmitted reference range : 166 - 358 10*3/ ?L. The reference r christiano was not used to interpret this result as normal/abnormal . MPV (test code = 11.2 fL 9.5-12.9 67589-4) NRBC/100 WBC (test See_Comment [Automat ed code = [id number]) message] The system which generated this result transmitted reference range : 0.0 - 10.0 /100 WBCs. The refer ence range was not u sed to interpret th is result as normal/abnormal . NRBC x10^3 (test code <0.01 See_Comment [Auto mated = [id number]) message] The s ystem which generated this result transmitted reference range : 10*3/?L. The reference range was not used to interpret this result as normal/abnormal . GRAN MAT (NEUT) % 66.4 % (test code = 770-8) IMM GRAN % (test code 0.40 % = [id number]) LYMPH % (test code = 18.2 % 736-9) MONO % (test code = 11.2 % 5905-5) EOS % (test code = 3.2 % 713-8) BASO % (test code = 0.6 % 706-2) GRAN MAT x10^3(ANC) 3.50 10*3/uL 1.88-7.09 (test code = 0355685664) IMM GRAN x10^3 (test <0.03 0-0.06 code = 1592188178) LYMPH x10^3 (test code 0.96 10*3/uL 1.32-3.29 L = 731-0) MONO x10^3 (test code 0.59 10*3/uL 0.33-0.92 = 742-7) EOS x10^3 (test code = 0.17 10*3/uL 0.03-0.39 711-2) BASO x10^3 (test code 0.03 10*3/uL 0.01-0.07 = 704-7) Lab Interpretation Abnormal (test code = 26677-6) [facility] WITH [id number] 04:32:00 Test Item Value Reference Range Interpretation Comments WBC (test code = See_Comment [Automated 6690-2) message] The sy stem which generated this result transmitted reference range : 4.30 - 11.10 10*3/?L. The reference range was not used to interpret this result as normal/abnormal . RBC (test code = See_Comment [Automated 389-8) message] The sy stem which generated this [...] RDW-SD (test code = 49.3 fL 39-49.9 96615-9) RDW-CV (test code = 17.1 % 12-15.5 H 788-0) PLT (test code = See_Comment [Automated 777-3) message] The sy stem which generated this result transmitted reference range : 166 - 358 10*3/ ?L. The reference r christiano was not used to interpret this result as normal/abnormal . MPV (test code = 11.2 fL 9.5-12.9 36340-2) NRBC/100 WBC (test See_Comment [Automat ed code = 1590976949) message] The system which generated this result transmitted reference range : 0.0 - 10.0 /100 WBCs. The refer ence range was not u sed to interpret th is result as normal/abnormal . NRBC x10^3 (test code <0.01 See_Comment [Auto mated = [id number]) message] The s ystem which generated this result transmitted reference range : 10*3/?L. The reference range was not used to interpret this result as normal/abnormal . GRAN MAT (NEUT) % 66.4 % (test code = 770-8) IMM GRAN % (test code 0.40 % = 4145804519) LYMPH % (test code = 18.2 % 736-9) MONO % (test code = 11.2 % 5905-5) EOS % (test code = 3.2 % 713-8) BASO % (test code = 0.6 % 706-2) GRAN MAT x10^3(ANC) 3.50 10*3/uL 1.88-7.09 (test code = 7189162501) IMM GRAN x10^3 (test <0.03 0-0.06 code = 2682904563) LYMPH x10^3 (test code 0.96 10*3/uL 1.32-3.29 L = 731-0) MONO x10^3 (test code 0.59 10*3/uL 0.33-0.92 = 742-7) EOS x10^3 (test code = 0.17 10*3/uL 0.03-0.39 711-2) BASO x10^3 (test code 0.03 10*3/uL 0.01-0.07 = 704-7) Lab Interpretation Abnormal (test code = 17826-2) [facility] [id number] 22:47:00 Test Item Value Reference Range Interpretation Comments POCT PREG (test code = 1605) Positive On board controls acceptable with C Yes Line (test code = 3574) POCT PREG LOT # (test code = 3575) POCT PREG TEST DATE (test code = 3576) [id number] Test Item Value Reference Range Interpretation Comments POCT PREG (test code = 1605) Positive On board controls acceptable with C Yes Line (test code = 3574) POCT PREG LOT # (test code = 3575) POCT PREG TEST DATE (test code = 3576) [id number] 19:41:00 Test Item Value Reference Range Interpretation Comments POCT PREG (test code = 1605) Positive On board controls acceptable with C Yes Line (test code = 3574) POCT PREG LOT # (test code = 3575) POCT PREG TEST DATE (test code = 3576) [facility] GLUCOSE(AGE >30DAYS)2018-12-22 19:41:00 Test Item Value Reference Range Interpretation Comments POCT Glu (age>30days) (test code = 115 mg/dL 70-110 A 3342) Lab Interpretation (test code = Abnormal 88064-9) [facility] URINALYSIS W/O SPECIFIC [id number] 19:36:00 Test Item Value Reference Range Interpretation [...] Negative Lab Interpretation (test code = Abnormal 95569-9) [facility] Notes Date/Time Note Provider Source 2019-07-09 19:16:39-00:[address] [facility] OPERATIVE/PROCEDURE REPORT [place] FACILITY: [facility] Billing #: [id number] Room: [address] [place] [address] MR #: [id number] : 1990 DATE OF PROCEDURE: 07/09/2019 SURGEON: Pauline Ferrara MD PREOPERATIVE DIAGNOSIS: Calculous cholecystitis and possible hepatitis. POSTOPERATIVE DIAGNOSIS: Calculous cholecystitis and possible hepatitis. PROCEDURE: Laparoscopic cholecystectomy and Thaddeus- Cut and needle liver biopsy, and needle biopsy. ASSISTANTS: 1. Fernando Og MD. 2. Haley Krueger MD. ESTIMATED BLOOD LOSS: 10 mL. SPECIMEN: Gallbladder and needle biopsy sent for histopathology. INDICATIONS: This is a 29-year-old female who pr esented with right upper quadrant abdominal pain, which has b een going on for few months, investigation of which revealed cholelithiasis. In addition, she was presented also with signif icant elevation of her liver enzymes and total bilirubin. Theref ore, she underwent preoperative ERCP. She was brought in today for elective laparoscopic cholecystectomy and liver biopsy. DESCRIPTION OF PROCEDURE: After induction of gen eral anesthesia, the patient's abdomen was prepped wi th ChloraPrep and draped in a sterile fashion. A supraumbilica l incision made using the scalpel and extended through the layers of the abdomen using the electrocautery. Upon entering the peritoneal cavity, Felicia cannula introduced into the abdom en, which was then insufflated with CO2 up to 15 mmHg pressure . Then, a 10 mm port introduced into the subxiphoid area with two 5 mm ports along the right subcostal margin. Upon entry int o peritoneal cavity, the gallbladder grasped through the fund us and retracted in a cephalad direction. The peritoneu m the Calot of triangle incised and the cystic artery and duct identified. The cystic duct dissected and ligated twice dist ally and once proximally and divided. The cystic artery dissec pipo and ligated twice proximally and once distally and d ivided. The gallbladder then excised from the gallbladder fo ssa using sharp dissection. The liver found to be steatotic. Hem ostasis of gallbladder fossa achieved using the argon beam automatic i threading machine feeder. Then 18-gauge spring-loaded biopsy gun inserted through the 5 mm port and needle biopsy obtained from the live r and sent for histopathology. Hemostasis achieved using the el ectrocautery. The gallbladder then retrieved using the EndoCat ch through the supraumbilical incision. The abdomen then irriga pipo with warm saline antibiotic solution. Ports were then alexandru taylor under direct vision and the abdomen deflated from CO2. The supraumbilical incision fascia closed using 0 Vi cryl stitches in interrupted fashion and skin of the four inci sions closed using 4-0 Monocryl in a subcuticular fash ion. The patient tolerated procedure and went to recovery in stable condition. OB/MODL /[id number]
[2022-10-15] MEDS ORDERED: ACETAMINOPHEN 500 MG TAB ONE (07:44)
--- NOTE | 2022-10-15 08:46 | RAD REPORT ---
EXAM DESCRIPTION: RADChest Single View10/15/2022 8:27 am CLINICAL HISTORY: Cough;Fever COMPARISON: Chest Pa And Lat (2 Views) dated 05/29/2022; Chest Single View dated 07/10/2020; Chest Sing le View dated 07/06/2019; Chest Pa And Lat (2 Views) dated 04/29/2019 TECHNIQUE: Portable AP view of the chest. FINDINGS: The lungs are clear. No pneumothorax or effusion. The cardiomediastinal contours are unre markable. IMPRESSION: No acute cardiopulmonary process.
--- NOTE | 2022-10-15 09:25 | EDPHYS ---
Physician Documentation [facility] Name: Melanie Paz Age: 32 yrs Sex: Female : 1990 Arrival Date: 10/15/2022 Time: 07:10 Bed 17 Private MD: ED Physician Jerry Mcpherson HPI: 10/15 08:10 This 32 yrs old Black Female presents to ER via Ambulatory with complaints of muscle rn aches, fever, Chest Pain, Headache, Sore Throat. 08:10 The patient reports fever, that was measured at 103 degrees Fahrenheit. Onset: The rn symptoms/episode began/occurred yesterday. Modifying factors: there are no obvious modifying factors. Associated signs and symptoms: Pertinent positives: chills, headache, myalgias, runny nose, sore throat. Severity of symptoms: At their worst the symptoms were. 08:14 The patient has not experienced similar symptoms in the past. The patient has not rn recently seen a physician. Pt reports fever, congestion, myalgias, weakness, chills, headache, fatigue. NO sob. No abd pain. No vomiting/diarrhea. Historical: - Allergies: 07:25 Iodine; contrast; cm10 - PMHx: 07:25 Diabetes - NIDDM; PCOS; cm10 - PSHx: 07:25 Craniotomy; Cholecystectomy; right ovary removed; knee repair; cm10 - Immunization history:: Adult Immunizations unknown. - Social history:: Smoking status: unknown. - Family history:: not pertinent. - Hospitalizations: : No recent hospitalization is reported. ROS: 08:14 Constitutional: + fever and chills Eyes: Negative for injury, pain, redness, and frit mixer and burner, ENT: + congestion Neck: Negative for injury, pain, and swelling, Cardiovascular: Negative for chest pain, palpitations, and edema, Respiratory: Negative for shortness of breath, cough, wheezing, and pleuritic chest pain, Abdomen/GI: Negative for abdominal pain, nausea, vomiting, diarrhea, and constipation, MS/Extremity: Negative for injury and deformity, Skin: Negative for injury, rash, and discoloration, Neuro: Negative for numbness, tingling, and seizure. Exam: 08:14 Constitutional: This is a well developed, well nourished patient who is awake, alert, rn and in no acute distress. Head/Face: Normocephalic, atraumatic. Eyes: Pupils equal round and reactive to light, extra-ocular motions intact. Lids and lashes normal. Conjunctiva and sclera are non-icteric and not injected. Cornea within normal limits. Periorbital areas with no swelling, redness, or edema. ENT: No stridor Neck: Trachea midline, no masses palpated, and no cervical lymphadenopathy. Supple, full range of motion without nuchal rigidity, or vertebral point tenderness. No Meningismus. Cardiovascular: Tachcyardic, regular. No pulse deficits. Respiratory: No increased work of breathing, no retractions or nasal flaring. Abdomen/GI: soft, non-tender Skin: Warm, dry MS/ Extremity: Pulses equal, no cyanosis. Neuro: Awake and alert, GCS 15 09:15 ECG was reviewed by the Attending Physician. rn Vital Signs: 07:21 BP 145 / 79; Pulse 114; Resp 18; Temp 103.2; Pulse Ox 99% ; Weight 111.13 kg; Height 5 cm10 ft. 4 in. ; Pain 10/10; 08:50 BP 129 / 79; Pulse 103; Resp 20 S; Temp 101(O); Pulse Ox 96% on R/A; kc6 07:21 Body Mass Index 42.05 (111.13 kg, 162.56 cm) cm10 07:21 Pain Scale: Adult cm10 MDM: 07:26 Patient medically screened. rn 09:23 Differential diagnosis: viral Infection, bacterial infection, URI, flu, covid. Data rn reviewed: vital signs, nurses notes, lab test result(s), radiologic studies, plain films, and as a result, I will discharge patient. Counseling: I had a detailed discussion with the patient and/or guardian regarding: the historical points, exam findings, and any diagnostic results supporting the discharge/admit diagnosis, lab results, radiology results, the need for outpatient follow up, to return to the emergency department if symptoms worsen or persist or if there are any questions or concerns that arise at home. Response to treatment: the patient's symptoms have mildly improved after treatment, and as a result, I will discharge patient. Special discussion: I discussed with the patient/guardian in detail that at this point there is no indication for admission to the hospital. It is understood, however, that if the symptoms persist or worsen the patient needs to return immediately for re-evaluation. ED course: Most likely viral illness given systemic symptoms, flu/covid/strep/CXR negative, no oxygen requirement, no abd tenderness, no meningismus. Will dc home with return precautions and tylenol/motrin.. 10/15 07:24 Order name: Flu; Complete Time: 08:58 [facility] 10/15 07:24 Order name: SARS-COV-2 RT PCR; Complete Time: 08:58 [facility] 10/15 07:24 Order name: Strep [facility] 10/15 08:13 Order name: Throat Culture [facility] 10/15 07:32 Order name: XRAY Chest (1 view); Complete Time: 08:58 rn 10/15 07:24 Order name: EKG - Nurse/Tech; Complete Time: 07:24 [facility] EC:15 Rate is 117 beats/min. Rhythm is regular. QRS [place] is Normal. NC interval is normal. rn QRS interval is normal. QT interval is normal. No Q waves. No ST changes noted. Clinical impression: Sinus tachycardia. Interpreted by me. Reviewed by me. Administered Medications: 07:38 Drug: Acetaminophen PO 1000 mg Route: PO; kc6 08:57 Follow up: Response: No adverse reaction; Temperature is decreased 6 09:26 Drug: Ibuprofen PO 800 mg Route: PO; kc6 09:35 Follow up: Response: No adverse reaction [facility] Disposition Summary: 10/15/22 09:24 Discharge Ordered Location: Home rn Problem: new rn Symptoms: have improved rn Condition: Stable rn Diagnosis - Fever, unspecified rn - Myalgia rn Followup: rn - With: Private Physician - When: As needed - Reason: Recheck today's complaints, Re-evaluation by your physician Discharge Instructions: - Discharge Summary Sheet rn - Fever, Adult rn Forms: - Medication Reconciliation Form rn - Thank You Letter rn - 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
--- NOTE | 2022-10-15 09:25 | ER ---
Nurse's Notes [facility] Name: Melanie Paz Age: 32 yrs Sex: Female : 1990 Arrival Date: 10/15/2022 Time: 07:10 Bed 17 Private MD: Diagnosis: Fever, unspecified;Myalgia Presentation: 10/15 07:21 Chief complaint: Patient states: flu like symptoms onset yesterday. Patient reports cm10 sore throat, chest pain, body aches, chills and headache. Coronavirus screen: Vaccine status: Patient reports receiving the 2nd dose of the covid vaccine. chills, fever, headache, muscle pain, sore throat. Ebola Screen: No symptoms or risks identified at this time. Initial Sepsis Screen: Does the patient meet any 2 criteria? No. Patient's initial sepsis screen is negative. Does the patient have a suspected source of infection? No. Patient's initial sepsis screen is negative. Risk Assessment: Do you want to hurt yourself or someone else? Patient reports no desire to harm self or others. Onset of symptoms was October 14, 2022. 07:21 Method Of Arrival: Ambulatory 10 07:21 Acuity: NEIL 3 cm10 Triage Assessment: 07:26 General: Appears in no apparent distress. uncomfortable, Behavior is calm, cooperative. cm10 Historical: - Allergies: 07:25 Iodine; contrast; cm10 - PMHx: 07:25 Diabetes - NIDDM; PCOS; cm10 - PSHx: 07:25 Craniotomy; Cholecystectomy; right ovary removed; knee repair; cm10 - Immunization history:: Adult Immunizations unknown. - Social history:: Smoking status: unknown. - Family history:: not pertinent. - Hospitalizations: : No recent hospitalization is reported. Screenin:39 [facility] ED Fall Risk Assessment (Adult) History of falling in the last 3 months, kc6 including since admission No falls in past 3 months (0 pts) Confusion or Disorientation No (0 pts) Intoxicated or Sedated No (0 pts) Impaired Gait No (0 pts) Mobility Assist Device Used No (0 pt) Altered Elimination No (0 pt) Score/Fall Risk Level 0 - 2 = Low Risk Oriented to surroundings, Maintained a safe environment, Educated pt \T\ family on fall prevention, incl call for assistance when getting out of bed, Assessed \T\ reinforced patient's understanding of fall precautions, Hourly rounding (assess needs \T\ fall precautionary measures) done. Abuse screen: Denies threats or abuse. Denies injuries from another. Nutritional screening: No deficits noted. Tuberculosis screening: No symptoms or risk factors identified. Assessment: 07:38 General: Appears in no apparent distress. uncomfortable, ill, Behavior is calm, kc6 cooperative, appropriate for age. Pain: Complains of pain in chest, head, throat Pain does not radiate. Pain began 1 day ago. Neuro: [place] Agitation-Sedation Scale (RASS): 0 - Alert and Calm Level of Consciousness is awake, alert, obeys commands, Oriented to person, place, time, situation, Appropriate for age. Cardiovascular: Heart tones S1 S2 present Capillary refill < 3 seconds Rhythm is sinus tachycardia. Respiratory: Airway is patent Trachea midline Respiratory effort is even, unlabored, Respiratory pattern is regular, symmetrical. GI: No signs and/or symptoms were reported involving the gastrointestinal system. : No signs and/or symptoms were reported regarding the genitourinary system. EENT: Throat is reddened bilaterally with gag reflex present, Reports difficulty swallowing sore throat. Derm: No signs and/or symptoms reported regarding the dermatologic system. Skin is intact, Skin is pink, warm \T\ dry. Musculoskeletal: No signs and/or symptoms reported regarding the musculoskeletal system. Circulation, motion, and sensation intact. Capillary refill < 3 seconds, Range of motion: intact in all extremities. 08:45 Reassessment: Patient appears in no apparent distress at this time. No changes from kc6 previously documented assessment. Patient and/or family updated on plan of care and expected duration. Pain level reassessed. Patient is alert, oriented x 3, equal unlabored respirations, skin warm/dry/pink. Vital Signs: 07:21 BP 145 / 79; Pulse 114; Resp 18; Temp 103.2; Pulse Ox 99% ; Weight 111.13 kg; Height 5 cm10 ft. 4 in. ; Pain 10/10; 08:50 BP 129 / 79; Pulse 103; Resp 20 S; Temp 101(O); Pulse Ox 96% on R/A; kc6 07:21 Body Mass Index 42.05 (111.13 kg, 162.56 cm) cm10 07:21 Pain Scale: Adult cm10 ED Course: 07:12 Patient arrived in ED. im 07:16 Anette Ordoñez, VIDHI is Primary Nurse. kc6 07:25 Triage completed. cm10 07:26 Jerry Mcpherson MD is Attending Physician. rn 07:26 Arm band placed on Patient placed in an exam room, on a stretcher. EKG completed in cm10 triage. Results shown to MD. 07:39 Patient has correct armband on for positive identification. Bed in low position. Call kc6 light in reach. Side rails up X2. Client placed on continuous cardiac and pulse oximetry monitoring. NIBP monitoring applied. classroom monitor on. 07:39 Patient maintains SpO2 saturation greater than 95% on room air. kc6 07:58 COVID swab sent to lab. Flu and/or RSV swab sent to lab. mm9 08:29 XRAY Chest (1 view) In Process Unspecified. EDMS 09:34 No provider procedures requiring assistance completed. Patient did not have IV access kc6 during this emergency room visit. Administered Medications: 07:38 Drug: Acetaminophen PO 1000 mg Route: PO; kc6 08:57 Follow up: Response: No adverse reaction; Temperature is decreased kc6 09:26 Drug: Ibuprofen PO 800 mg Route: PO; kc6 09:35 Follow up: Response: No adverse reaction kc6 Medication: 09:34 VIS not applicable for this client. kc6 Outcome: 09:24 Discharge ordered by . rn 09:34 Discharged to home ambulatory. kc6 09:34 Condition: improved 09:34 Discharge instructions given to patient, Instructed on discharge instructions, follow up and referral plans. Demonstrated understanding of instructions, follow-up care. 09:35 Patient left the ED. kc6 Signatures: Dispatcher [employer] EDMS Jerry Mcpherson MD MD rn Campbell, Kaitlyn, RN RN Ree Queen mm9 Jacki Amin Clarissa, RN RN 10 Corrections: (The following items were deleted from the chart) 08:17 07:38 Pain: Complains of pain in chest Pain does not radiate. kc6 kc6 08:18 07:38 General: Appears in no apparent distress. uncomfortable, ill, Behavior is calm, kc6 cooperative, appropriate for age, kc6 08:18 07:38 Pain: Complains of pain in chest, head, throat Pain does not radiate. kc6 kc6 08:54 08:50 BP 129 / 79; Pulse 103bpm; Resp 20bpm; Spontaneous; Pulse Ox 96% RA; kc6 kc6
[2022-10-15] MEDS ORDERED: IBUPROFEN 400 MG TAB ONE (09:33)
[2022-10-15 09:47] VITALS: BP 129/79; TEMP 101; O2SAT 96
--- NOTE | 2022-10-18 17:18 | EKG ---
Test Date: 2022-10-15 Test Time: 07:21:14 Pain Management Physician: DERECK MEASUREMENT RESULTS: Intervals: Rate: 117 OR: 122 QRSD: 78 QT: 318 QTc: 443 [place]: P: 65 OR: 122 QRS: 71 T: -13 INTERPRETIVE STATEMENTS: Sinus tachycardia T wave abnormality, consider inferior ischemia Abnormal ECG Compared to ECG 07/10/2020 08:26:46 Possible ischemia now present T-wave abnormality still present Electronically Signed On 10-18-22 17:12:32 CDT by Burton Benites
== END 2022-10-15 09:35 | disposition home or self-care (01) ==
LOC: ER 07:10
DX: R50.9 Fever, unspecified (principal); M79.10 Myalgia, unspecified site; Z20.822 Contact with and (suspected) exposure to COVID-19; E11.9 Type 2 diabetes mellitus without complications; Z91.041 Radiographic dye allergy status
CPT/HCPCS: 71045; 87070; 87081; 87635; 87804; 93005; 99285

== ENCOUNTER → 2023-05-07 | Emergency (ER) | payer BC, OTHER ==
[~2023-05-07] MED LIST: ACETAMINOPHEN 500 MG TAB ONE; ASPIRIN 81 MG CHEWABLE TABLET ONE; AZITHROMYCIN 250 MG TAB ONE; FAMOTIDINE 20 MG TAB ONE; IBUPROFEN 200 MG TAB PO ONE; IBUPROFEN 400 MG TAB ONE
[2023-05-07 09:09] LABS: SARS-CoV-2 Antigen Rapid Res Positive (Negative)
--- NOTE | 2023-05-07 09:15 | ER ---
Nurse's Notes [facility] Name: Melanie Paz Age: 33 yrs Sex: Female : 1990 Arrival Date: 05/07/2023 Time: 08:31 Bed 5 Private MD: Diagnosis: Acute upper respiratory infection, unspecified;Fever, unspecified;Cough;Coronavirus infection, unspecified;SARS-associated coronavirus as the cause of diseases classified elsewhere Presentation: 05/07 08:54 Chief complaint: Patient states: TUCKER, cough, sore throat, body aches, SOB since last ll1 night. Coronavirus screen: Client denies travel out of the [place] in the last 14 days. congestion, cough unrelated to allergies, difficulty breathing, fatigue, fever, headache, muscle pain, shortness of breath, sore throat, Client presents with at least one sign or symptom that may indicate coronavirus-19. Standard/surgical mask placed on the client. Ebola Screen: Patient denies travel to an Ebola-affected area in the 21 days before illness onset. Initial Sepsis Screen: Does the patient meet any 2 criteria? No. Patient's initial sepsis screen is negative. Does the patient have a suspected source of infection? Yes: Productive cough/pneumonia. Risk Assessment: Do you want to hurt yourself or someone else? Patient reports no desire to harm self or others. Onset of symptoms was May 06, 2023. 08:54 Method Of Arrival: Ambulatory ll1 08:54 Acuity: NEIL 4 ll1 Triage Assessment: 08:56 General: Appears uncomfortable, ill, Behavior is calm, cooperative, appropriate for 1 age. Pain: Complains of pain in head Pain currently is 10 out of 10 on a pain scale. Quality of pain is described as aching, throbbing. EENT: Reports nasal congestion pain when swallowing. Neuro: Reports dizziness, headache weakness. Respiratory: Reports shortness of breath cough that is. Musculoskeletal: Reports pain in body aches. 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 - Social history:: Smoking status: Patient denies any tobacco usage or history of. - Family history:: not pertinent. Screenin:27 [facility] ED Fall Risk Assessment (Adult) Score/Fall Risk Level 0 - 2 = Low Risk ll1 Oriented to surroundings, Maintained a safe environment, Educated pt \T\ family on fall prevention, incl call for assistance when getting out of bed, Hourly rounding (assess needs \T\ fall precautionary measures) done. Abuse screen: Denies threats or abuse. Nutritional screening: No deficits noted. Tuberculosis screening: No symptoms or risk factors identified. Assessment: 09:09 Reassessment: No changes from previously documented assessment. Patient and/or family ll1 updated on plan of care and expected duration. Pain level reassessed. Patient is alert, oriented x 3, equal unlabored respirations, skin warm/dry/pink. 09:27 Reassessment: No changes from previously documented assessment. Patient and/or family ll1 updated on plan of care and expected duration. Pain level reassessed. 09:34 Reassessment: No changes from previously documented assessment. Patient and/or family ll1 updated on plan of care and expected duration. Pain level reassessed. Vital Signs: 08:54 BP 176 / 99; Pulse 104; Resp 18; Temp 100.7; Pulse Ox 99% on R/A; Weight 112.49 kg; ll1 Height 5 ft. 3 in. ; Pain 10/10; 09:26 BP 158 / 103; Pulse 97; Resp 18; Pulse Ox 100% on R/A; ll1 08:54 Body Mass Index 43.93 (112.49 kg, 160.02 cm) ll1 08:54 Pain Scale: Adult ll1 ED Course: 08:33 Patient arrived in ED. rg4 08:37 Siva Hankins MD is Attending Physician. angelica 08:40 Arm band placed on Patient placed in an exam room, on a stretcher. ll1 08:45 Provided Education on: ER procedures and process. ll1 08:56 Triage completed. ll1 08:57 Aleks Caraballo RN is Primary Nurse. ll1 08:57 SARS RAPID Sent. ll1 08:57 Flu Sent. ll1 09:12 Notified ED physician of a critical lab result(s). Covid positive. ll1 09:27 Patient has correct armband on for positive identification. Bed in low position. Call ll1 light in reach. Client placed on continuous cardiac and pulse oximetry monitoring. NIBP monitoring applied. Administered Medications: 09:08 Drug: Ibuprofen PO 600 mg PO once Route: PO; ll1 09:34 Follow up: Response: No adverse reaction ll1 09:08 Drug: AZITHromycin PO 500 mg PO once Route: PO; ll1 09:34 Follow up: Response: No adverse reaction ll1 09:26 Drug: Famotidine PO 40 mg PO once Route: PO; ll1 09:34 Follow up: Response: No adverse reaction ll1 09:26 Drug: Aspirin PO Chewable Tablet 81 mg PO once Route: PO; ll1 09:34 Follow up: Response: No adverse reaction ll1 09:26 Drug: Acetaminophen PO 1000 mg PO once Route: PO; ll1 09:35 Follow up: Response: No adverse reaction ll1 Medication: 09:27 VIS not applicable for this client. ll1 Outcome: 09:14 Discharge ordered by MD. dominguez 09:35 Patient left the ED. ll1 Signatures: Siva Hankins MD MD cha Garcia, Rubi rg4 Aleks Caraballo RN RN ll1 Pauline Portillo RN RN ld1 Corrections: (The following items were deleted from the chart) 08:53 08:53 Arm band placed on Patient placed ll1 ll1
--- NOTE | 2023-05-07 09:15 | EDPHYS ---
Physician Documentation [facility] Name: Melanie Paz Age: 33 yrs Sex: Female : 1990 Arrival Date: 05/07/2023 Time: 08:31 Bed 5 Private MD: ED Physician Siva Hankins HPI: 05/07 09:04 This 33 yrs old Black Female presents to ER via Ambulatory with complaints of Flu angelica Symptoms. 09:04 The patient or guardian reports cough, flu symptoms, low-grade fever, myalgias. angelica Modifying factors: The symptoms are alleviated by nothing. the symptoms are aggravated by nothing. cough , congestion, malaise x 2 days. The patient or guardian reports airway noise. Severity of symptoms: At their worst the symptoms were mild, in the emergency department the symptoms are unchanged. Modifying factors: The symptoms are alleviated by nothing. Severity of symptoms: At their worst the symptoms were mild in the emergency department the symptoms are unchanged. 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 - Social history:: Smoking status: Patient denies any tobacco usage or history of. - Family history:: not pertinent. ROS: 09:04 Constitutional: Negative for fever, chills, and weight loss, Eyes: Negative for injury, angelica pain, redness, and discharge, Neck: Negative for injury, pain, and swelling, Cardiovascular: Negative for chest pain, palpitations, and edema, Abdomen/GI: Negative for abdominal pain, nausea, vomiting, diarrhea, and constipation, Back: Negative for injury and pain, : Negative for injury, bleeding, discharge, and swelling, MS/Extremity: Negative for injury and deformity, Skin: Negative for injury, rash, and discoloration, Neuro: Negative for headache, weakness, numbness, tingling, and seizure, Psych: Negative for depression, anxiety, suicide ideation, homicidal ideation, and hallucinations, Allergy/Immunology: Negative for hives, rash, and allergies, Endocrine: Negative for neck swelling, polydipsia, polyuria, polyphagia, and marked weight changes, Hematologic/Lymphatic: Negative for swollen nodes, abnormal bleeding, and unusual bruising, : ENT: Positive for rhinorrhea, sinus congestion, sore throat, :04 Respiratory: Positive for cough, "sounds productive", Exam: : Head/Face: Normocephalic, atraumatic. Eyes: Pupils equal round and reactive to light, angelica extra-ocular motions intact. Lids and lashes normal. Conjunctiva and sclera are non-icteric and not injected. Cornea within normal limits. Periorbital areas with no swelling, redness, or edema. ENT: Nares patent. No nasal discharge, no septal abnormalities noted. Tympanic membranes are normal and external auditory canals are clear. Oropharynx with no redness, swelling, or masses, exudates, or evidence of obstruction, uvula midline. Mucous membranes moist. Neck: Trachea midline, no thyromegaly or masses palpated, and no cervical lymphadenopathy. Supple, full range of motion without nuchal rigidity, or vertebral point tenderness. No Meningismus. Chest/axilla: Normal chest wall appearance and motion. Nontender with no deformity. No lesions are appreciated. Cardiovascular: Regular rate and rhythm with a normal S1 and S2. No gallops, murmurs, or rubs. Normal PMI, no JVD. No pulse deficits. Respiratory: Lungs have equal breath sounds bilaterally, clear to auscultation and percussion. No rales, rhonchi or wheezes noted. No increased work of breathing, no retractions or nasal flaring. Abdomen/GI: Soft, non-tender, with normal bowel sounds. No distension or tympany. No guarding or rebound. No evidence of tenderness throughout. Back: No spinal tenderness. No costovertebral tenderness. Full range of motion. Skin: Warm, dry with normal turgor. Normal color with no rashes, no lesions, and no evidence of cellulitis. MS/ Extremity: Pulses equal, no cyanosis. Neurovascular intact. Full, normal range of motion. Neuro: Awake and alert, GCS 15, oriented to person, place, time, and situation. Cranial nerves II-XII grossly intact. Motor strength 5/5 in all extremities. Sensory grossly intact. Cerebellar exam normal. Normal gait. Psych: Awake, alert, with orientation to person, place and time. Behavior, mood, and affect are within normal limits. 09:04 Constitutional: The patient appears febrile, 09:04 ENT: Posterior pharynx: Airway: no evidence of obstruction, patent, Tonsils: are normal in appearance, Uvula: normal, midline, non-edematous, no erythema, swelling, that is mild, erythema, that is mild, peritonsillar mass, is not appreciated, pooling of secretions, is not appreciated, Vital Signs: 08:54 BP 176 / 99; Pulse 104; Resp 18; Temp 100.7; Pulse Ox 99% on R/A; Weight 112.49 kg; ll1 Height 5 ft. 3 in. ; Pain 10/10; 09:26 BP 158 / 103; Pulse 97; Resp 18; Pulse Ox 100% on R/A; ll1 08:54 Body Mass Index 43.93 (112.49 kg, 160.02 cm) ll1 08:54 Pain Scale: Adult ll1 MDM: 08:[address] [facility] 09:07 Differential diagnosis: obstructed airway, bronchitis, flu, URI. Antibiotic [facility] administration: The patient is discharged and will get outpatient antibiotics, Zithromax. Differential Diagnosis altered mental status, sepsis, flu, Obstructed Airway Bronchitis Influenza Upper Respiratory Infection Sinusitis Pharyngitis Otitis Media. Data reviewed: vital signs, nurses notes, lab test result(s). Consideration of Admission/Observation Escalation of care including admission/observation considered. I considered the following discharge prescriptions or medication management in the emergency department Medications were administered in the Emergency Department. See MAR. Test considered but Not performed: X-ray: no cxr. 05/07 08:51 Order name: Strep [facility] 05/07 08:38 Order name: SARS RAPID; Complete Time: 09:12 [facility] 05/07 08:38 Order name: Flu [facility] 05/07 09:20 Order name: Throat Culture EDMS Administered Medications: 09:08 Drug: Ibuprofen PO 600 mg PO once Route: PO; ll1 09:34 Follow up: Response: No adverse reaction ll1 09:08 Drug: AZITHromycin PO 500 mg PO once Route: PO; ll1 09:34 Follow up: Response: No adverse reaction ll1 09:26 Drug: Famotidine PO 40 mg PO once Route: PO; ll1 09:34 Follow up: Response: No adverse reaction ll1 09:26 Drug: Aspirin PO Chewable Tablet 81 mg PO once Route: PO; ll1 09:34 Follow up: Response: No adverse reaction ll1 09:26 Drug: Acetaminophen PO 1000 mg PO once Route: PO; ll1 09:35 Follow up: Response: No adverse reaction ll1 Disposition Summary: 05/07/23 09:14 Discharge Ordered Notes: Location: Home [facility] Problem: new angelica Symptoms: have improved angelica Condition: Stable [facility] Diagnosis - Acute upper respiratory infection, unspecified angelica - Fever, unspecified angelica - Cough angelica - Coronavirus infection, unspecified angelica - SARS-associated coronavirus as the cause of diseases classified elsewhere [facility] Followup: angelica - With: Private Physician - When: 2 - 3 days - Reason: Recheck today's complaints, Continuance of care, Re-evaluation by your physician Discharge Instructions: - Fever, Adult angelica - Upper Respiratory Infection, Adult angelica - Cool Mist Vaporizer angelica - Upper Respiratory Infection, Adult, [id number] angelica - Cough, Adult, Iodc-[id number]-Vecb angelica - Aspirin and Your Heart angelica - Cough, Adult [facility] - COVID-19 angelica - COVID-19: What Your Test Results Mean - [facility] (01/20/2021) [facility] - Symptoms of COVID-19 - [facility] (07/14/2021) angelica - COVID-19: Quarantine and Isolation - [facility] (07/22/2021) angelica - COVID-19: What to Do If You Are Sick - [facility] (07/14/2021) [facility] - Discharge Summary Sheet ll1 Forms: - Medication Reconciliation Form [facility] - Thank You Letter [facility] - Antibiotic Education [facility] - Prescription Opioid Use [facility] - Patient Portal Instructions [facility] - Leadership Thank You Letter [facility] - Work release form ll1 Prescriptions: - Paxlovid 300 mg (150 mg x 2)-100 mg Oral Tablet, Dose Pack - take 1 dose pack ORAL route as directed on dose pack take TWO 150 mg tablets of angelica nirmatrelvir with ONE 100 mg tablet of ritonavir twice daily for 5 days; 30 tablet; Refills: 0, Product Selection Permitted - budesonide-formoterol 160-4.5 mcg/actuation Inhalation HFA Aerosol Inhaler - inhale 2 inhalation INHALATION route every 12 hours; 1 unit; Refills: 0, [facility] Product Selection Permitted - Pepcid 20 mg Oral tablet - take 1 tablet ORAL route every 12 hours for 21 days; 42 tablet; Refills: 0, [facility] Product Selection Permitted - Tessalon Perles 100 mg Oral capsule - take 2 capsule ORAL route every 8 hours As needed; 30 capsule; Refills: 0, [facility] Product Selection Permitted - Zithromax 500 mg Oral Tablet - take 1 tablet ORAL route once daily for 5 days; 5 tablet; Refills: 0, Product angelica Selection Permitted Signatures: Dispatcher [employer] Siva Alonso MD MD cha Lewis, Lynsay, RN RN ll1 Pauline Portillo RN RN ld1
[2023-05-07 10:05] VITALS: BP 158/103; TEMP 100.7; O2SAT 100
== END ==
LOC: ER 08:31
DX: U07.1 COVID-19 (principal); J06.9 Acute upper respiratory infection, unspecified; R50.9 Fever, unspecified; Z91.041 Radiographic dye allergy status
CPT/HCPCS: 36415; 87070; 87081; 87804; 87811; 99283

== ENCOUNTER 2024-07-01 10:40 | Emergency (ER) | payer BC, OTHER ==
[2024-07-01] MEDS ORDERED: ASPIRIN 81 MG CHEWABLE TABLET ONE (11:38)
[2024-07-01] MEDS ORDERED: NA CHLORIDE 0.9% 1,000 ML ONE (11:38)
[2024-07-01 12:01] LABS: Specific Gravity 1.028 (1.005-1.030)
[2024-07-01 12:03] LABS: Absolute Basophils 0.1 K/uL (0-0.5); Absolute Eosinophils 0.2 K/uL (0-0.5); Absolute Lymphocytes (CBC) 2.3 K/uL (0.7-4.9); Absolute Monocytes 1.1 K/uL (0.1-1.3); Absolute Neutrophil 9.4 K/uL (1.8-8.0); Basophils % 0.6 % (0-1.3); Eosinophils % 1.8 % (0-4.4); Hematocrit 33.2 % (36.0-45.0); Hemoglobin 10.6 g/dL (12.0-15.0); Lymphocytes % 17.3 % (15.3-44.8); MCH 22.7 pg (27.0-35.0); MCHC 32.1 g/dL (32.0-36.0); MCV 70.8 fL (80-100); MPV 9.3 fL (7.6-11.3); Monocytes % 8.7 % (3.3-12.3); Neutrophils % 71.6 % (41.7-73.7); Platelets 322 thou/uL (152-406); RBC Red Blood Cell Count 4.68 M/uL (3.86-4.86); Red Cell Distribution Width 16.8 % (12.1-15.2)
[2024-07-01 12:05] LABS: Specific Gravity 1.029 (1.005-1.030); Sqamous Epithelial <5 /HPF (None Seen); Urine Bacteria <20 /HPF (<20); Urine Bilirubin NEGATIVE (Negative); Urine Blood Negative (Negative); Urine Clarity Clear (Clear); Urine Color Yellow (Yellow); Urine Culture Reflex Order NOT NEEDED; Urine Glucose NEGATIVE (Negative); Urine Ketones NEGATIVE (Negative); Urine Microscopic Reflex YN ORDER UMIC; Urine Mucus 1+ /HPF (None Seen); Urine Nitrite NEGATIVE (Negative); Urine Protein TRACE (Negative); Urine RBC None Seen /HPF (None Seen); Urine Urobilinogen Normal (Normal); Urine WBC <5 /HPF (<5)
[2024-07-01 12:12] LABS: PT Prothrombin Time 12.5 SECONDS (10-13.0); Protime INR 1.1
[2024-07-01 12:20] LABS: ALT/SGPT 31 U/L (13-56); AST/SGOT 19 U/L (15-37); Albumin 3.1 g/dL (3.4-5.0); Albumin/Globulin Ratio 0.7 (1.1-1.8); Alkaline Phosphatase 105 U/L (45-117); Anion Gap 9.6 mEq/L (5.0-15.0); BUN Blood Urea Nitrogen 10 mg/dL (7-18); Bicarbonate 25 mEq/L (21-32); Bilirubin Total 0.5 mg/dL (0.2-1.0); Globulin 4.5 g/dL (2.3-3.5); Glomerular Filtration Rate 115 ml/min (=/>90); Glucose Level 89 mg/dL (74-106); Lipase 27 U/L (13-75); NT PRO-BNP 26 pg/mL (<125); Potassium 3.6 mEq/L (3.5-5.1); Protein, Total 7.6 g/dL (6.4-8.2); Sodium Level 136 mEq/L (136-145)
[2024-07-01 12:24] LABS: Bilirubin Direct < 0.2 mg/dL (0-0.2); Bilirubin Indirect, Calculated 0.3 mg/dL (0.2-0.8); Troponin High Sensitivity < 3.0 pg/mL (<58.9)
--- NOTE | 2024-07-01 12:39 | RAD REPORT ---
Procedure: Chest Single View HISTORY: Cough COMPARISON: 2022 FINDINGS: The lungs appear clear of acute infiltrate. No significant pleural effusion noted. The heart is normal size. IMPRESSION: No acute abnormality is displayed.
[2024-07-01] MEDS ORDERED: DIPHENHYDRAMINE 50 MG/ML VIAL ONE (12:51)
[2024-07-01] MEDS ORDERED: KETOROLAC 30 MG/ML INJ ONE (12:51)
[2024-07-01] MEDS ORDERED: METOCLOPRAMIDE 10 MG/2mL INJ ONE (12:51)
--- NOTE | 2024-07-01 13:08 | RAD REPORT ---
EXAM: CT brain without contrast HISTORY: Headache COMPARISON: June 28, 2024 TECHNIQUE: Multiple contiguous axial images were obtained and a CT of the brain without contrast.. Sagittal and coronal reconstruction performed. Automated exposure control, adjustment of the mA and/or kV according to patient size, and/or iterative reconstruction. Unless otherwise specified, incidental f indings do not require dedicated imaging follow-up FINDINGS: Post surgical changes right craniotomy. 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 No acute bleed. Ventricles are normal caliber No extra-axial fluid collection noted No significant hypodensity within the brain No fluid within the visualized sinuses or mastoids noted. IMPRESSION: No acute intracranial abnormality noted. If the patient continues to have symptoms to suggest an acute intracranial abnormality then MRI of th e brain would be recommended.
--- NOTE | 2024-07-01 13:16 | ER ---
Nurse's Notes [facility] Name: Melanie Paz Age: 34 yrs Sex: Female : 1990 Arrival Date: 07/01/2024 Time: 10:40 Bed 20 Private MD: Diagnosis: Dizziness and giddiness;Carpal tunnel syndrome;Essential (primary) hypertension Presentation: 07/01 10:53 Chief complaint: Intermittent headache and dizziness x 2 weeks, chest pain and left hb sided facial twitching that started 2 hours ago. Coronavirus screen: At this time, the client does not indicate any symptoms associated with coronavirus-19. Ebola Screen: No symptoms or risks identified at this time. Initial Sepsis Screen: Does the patient meet any 2 criteria? No. Patient's initial sepsis screen is negative. Does the patient have a suspected source of infection? No. Patient's initial sepsis screen is negative. Risk Assessment: Do you want to hurt yourself or someone else? Patient reports no desire to harm self or others. Onset of symptoms was June 17, 2024. 10:53 Method Of Arrival: Ambulatory hb 10:53 Acuity: NEIL 3 hb Historical: - Allergies: 10:57 Iodine; contrast; hb 10:57 NKDA; hb - PMHx: 10:57 Diabetes - NIDDM; PCOS; hb - PSHx: 10:57 Craniotomy; Cholecystectomy; knee repair; right ovary removed; hb - Immunization history:: Adult Immunizations up to date. - Infectious Disease History:: Denies. - Social history:: Smoking status: Reported history of juuling and/or vaping. - Family history:: not pertinent. Screenin:13 [facility] ED Fall Risk Assessment (Adult) History of falling in the last 3 months, kc6 including since admission No falls in past 3 months (0 pts) Confusion or Disorientation No (0 pts) Intoxicated or Sedated No (0 pts) Impaired Gait No (0 pts) Mobility Assist Device Used No (0 pt) Altered Elimination No (0 pt) Score/Fall Risk Level 0 - 2 = Low Risk Oriented to surroundings, Maintained a safe environment, Educated pt \T\ family on fall prevention, incl call for assistance when getting out of bed. Abuse screen: Denies threats or abuse. Denies injuries from another. Nutritional screening: No deficits noted. Tuberculosis screening: No symptoms or risk factors identified. Assessment: 12:13 General: Appears in no apparent distress. comfortable, well groomed, well developed, kc6 Behavior is calm, cooperative, appropriate for age. Pain: Complains of pain in chest Pain does not radiate. Pain began 2 hours ago. Neuro: Level of Consciousness is awake, alert, obeys commands, Oriented to person, place, time, situation, Appropriate for age Reports dizziness. Cardiovascular: Reports chest pain, lightheadedness, Heart tones S1 S2 present Capillary refill < 3 seconds Rhythm is sinus rhythm with unifocal PVCs. Respiratory: Airway is patent Trachea midline Respiratory effort is even, unlabored, Respiratory pattern is regular, symmetrical. GI: No signs and/or symptoms were reported involving the gastrointestinal system. : No signs and/or symptoms were reported regarding the genitourinary system. EENT: No signs and/or symptoms were reported regarding the EENT system. Derm: No signs and/or symptoms reported regarding the dermatologic system. Skin is intact, is healthy with good turgor, Skin is pink, warm \T\ dry. Musculoskeletal: No signs and/or symptoms reported regarding the musculoskeletal system. Circulation, motion, and sensation intact. Range of motion: intact in all extremities. 12:48 Neuro: Reports dizziness, headache frontal area, paresthesias in right hand and left kc6 hand. 13:11 Reassessment: Patient appears in no apparent distress at this time. No changes from kc6 previously documented assessment. Patient and/or family updated on plan of care and expected duration. Pain level reassessed. Patient is alert, oriented x 3, equal unlabored respirations, skin warm/dry/pink. Vital Signs: 10:53 BP 161 / 103; Pulse 95; Resp 18; Temp 99.2; Pulse Ox 99% ; Weight 112.49 kg; Height 5 hb ft. 4 in. ; Pain 8/10; 12:13 BP 131 / 87; Pulse 93; Resp 20 S; Pulse Ox 100% on R/A; kc6 13:11 BP 165 / 103; Pulse 92; Resp 18 S; Temp 98.2(O); Pulse Ox 99% on R/A; kc6 13:53 BP 148 / 88; kc6 10:53 Body Mass Index 42.57 (112.49 kg, 162.56 cm) hb 10:53 Pain Scale: Adult hb ED Course: 10:45 Patient arrived in ED. al6 10:52 Siva Hankins MD is Attending Physician. angelica 10:57 Triage completed. hb 10:57 Arm band placed on. hb 11:33 Anette Ordoñez, RN is Primary Nurse. kc6 12:12 No provider procedures requiring assistance completed. Inserted saline lock: 20 gauge kc6 in right forearm, using aseptic technique. Blood collected. Flushed with 10 mL NS. Patient maintains SpO2 saturation greater than 95% on room air. 12:13 Patient has correct armband on for positive identification. Bed in low position. Call kc6 light in reach. Side rails up X 1. radiation monitor on. Pulse ox on. NIBP on. Door closed. Noise minimized. Lights dimmed. Warm blanket given. Pillow given. Verbal reassurance given. 12:26 XRAY Chest (1 view) In Process Unspecified. EDMS 12:[address] via stretcher. kc6 12:58 CT Head Brain wo Cont In Process Unspecified. EDMS 13:15 Devendra Awan MD is Referral Physician. angelica 13:16 Burton Benites MD is Referral Physician. angelica 13:53 IV discontinued, intact, bleeding controlled, No redness/swelling at site. Pressure kc6 dressing applied. Administered Medications: 11:56 Drug: Aspirin PO Chewable Tablet 324 mg PO once; 81 mg tablets x 4 Route: PO; kc6 12:38 Follow up: Response: No adverse reaction kc6 11:56 Drug: NS 0.9% IV 1000 ml IV at 1 bolus Per protocol; to be given as a bolus over 60 kc6 minutes Route: IV; Rate: 1 bolus; Site: right forearm; 13:52 Follow up: Response: No adverse reaction; IV Status: Completed infusion; IV Intake: kc6 1000ml 13:10 Drug: Ketorolac IVP 30 mg IVP once Route: IVP; Site: right forearm; kc6 13:52 Follow up: Response: No adverse reaction; Pain is decreased kc6 13:11 Drug: diphenhydrAMINE IVP 25 mg IVP once Route: IVP; Site: right forearm; kc6 13:52 Follow up: Response: No adverse reaction kc6 13:11 Drug: metoCLOPramide IVP 10 mg IVP once; over 1 to 2 minutes Route: IVP; Site: right kc6 forearm; 13:53 Follow up: Response: No adverse reaction kc6 Medication: 13:53 VIS not applicable for this client. kc6 Intake: 13:52 IV: 1000ml; Total: 1000ml. kc6 Outcome: 13:16 Discharge ordered by . angelica 13:53 Discharged to home ambulatory, kc6 13:53 Condition: good 13:53 Discharge instructions given to patient, Instructed on discharge instructions, follow up and referral plans. medication usage, Demonstrated understanding of instructions, follow-up care, medications, Prescriptions given X 1, 13:53 Patient left the ED. kc6 Signatures: Dispatcher [employer] EDMS Siva Hankins MD MD cha Baxter, Heather, RN RN Anette Redmond RN RN Fariha Smyth Corrections: (The following items were deleted from the chart) 13:14 13:11 BP 165 / 103; Pulse 92bpm; Resp 18bpm; Spontaneous; Pulse Ox 99% RA; kc6 kc6
--- NOTE | 2024-07-01 13:17 | EDPHYS ---
Physician Documentation [facility] Name: Melanie Paz Age: 34 yrs Sex: Female : 1990 Arrival Date: 07/01/2024 Time: 10:40 Bed 20 Private MD: BERNADETTE Physician Siva Hankins HPI: 07/01 13:11 This 34 yrs old Black Female presents to ER via Ambulatory with complaints of angelica Dizziness, lightheaded, Chest Tightness. 13:11 The patient presents with dizziness, lightheadedness. Onset: The symptoms/episode angelica began/occurred 2 day(s) ago. Context: occurred at an unknown location, occurred while the patient was usual activity. Modifying factors: The symptoms are alleviated by nothing, the symptoms are aggravated by nothing. Associated signs and symptoms: The patient has no apparent associated signs or symptoms. Patient's baseline: Neuro: alert and fully oriented. The patient has not experienced similar symptoms in the past. Historical: - Allergies: 10:57 Iodine; contrast; hb 10:57 NKDA; hb - PMHx: 10:57 Diabetes - NIDDM; PCOS; hb - PSHx: 10:57 Craniotomy; Cholecystectomy; knee repair; right ovary removed; hb - Immunization history:: Adult Immunizations up to date. - Infectious Disease History:: Denies. - Social history:: Smoking status: Reported history of juuling and/or vaping. - Family history:: not pertinent. ROS: 13:11 Constitutional: Negative for fever, chills, and weight loss, Eyes: Negative for injury, angelica pain, redness, and discharge, ENT: Negative for injury, pain, and discharge, Neck: Negative for injury, pain, and swelling, Cardiovascular: Negative for chest pain, palpitations, and edema, Respiratory: Negative for shortness of breath, cough, wheezing, and pleuritic chest pain, Abdomen/GI: Negative for abdominal pain, nausea, vomiting, diarrhea, and constipation, Back: Negative for injury and pain, : Negative for injury, bleeding, discharge, and swelling, Skin: Negative for injury, rash, and discoloration, Psych: Negative for depression, anxiety, suicide ideation, homicidal ideation, and hallucinations, Allergy/Immunology: Negative for hives, rash, and allergies, Endocrine: Negative for neck swelling, polydipsia, polyuria, polyphagia, and marked weight changes, Hematologic/Lymphatic: Negative for swollen nodes, abnormal bleeding, and unusual bruising, 13:11 MS/extremity: Positive for paresthesias, of the palmar aspect of distal phalanx of left ring finger, palmar aspect of distal phalanx of left middle finger, palmar aspect of distal phalanx of left index finger and palmar aspect of distal phalanx of left thumb, Exam: 13:11 Constitutional: This is a well developed, well nourished patient who is awake, alert, angelica and in no acute distress. Head/Face: Normocephalic, atraumatic. Eyes: Pupils equal round and reactive to light, extra-ocular motions intact. Lids and lashes normal. Conjunctiva and sclera are non-icteric and not injected. Cornea within normal limits. Periorbital areas with no swelling, redness, or edema. ENT: Nares patent. No nasal discharge, no septal abnormalities noted. Tympanic membranes are normal and external auditory canals are clear. Oropharynx with no redness, swelling, or masses, exudates, or evidence of obstruction, uvula midline. Mucous membranes moist. Neck: Trachea midline, no thyromegaly or masses palpated, and no cervical lymphadenopathy. Supple, full range of motion without nuchal rigidity, or vertebral point tenderness. No Meningismus. Chest/axilla: Normal chest wall appearance and motion. Nontender with no deformity. No lesions are appreciated. Cardiovascular: Regular rate and rhythm with a normal S1 and S2. No gallops, murmurs, or rubs. Normal PMI, no JVD. No pulse deficits. Respiratory: Lungs have equal breath sounds bilaterally, clear to auscultation and percussion. No rales, rhonchi or wheezes noted. No increased work of breathing, no retractions or nasal flaring. Abdomen/GI: Soft, non-tender, with normal bowel sounds. No distension or tympany. No guarding or rebound. No evidence of tenderness throughout. Back: No spinal tenderness. No costovertebral tenderness. Full range of motion. Skin: Warm, dry with normal turgor. Normal color with no rashes, no lesions, and no evidence of cellulitis. MS/ Extremity: Pulses equal, no cyanosis. Neurovascular intact. Full, normal range of motion., bilateral aka Neuro: Awake and alert, GCS 15, oriented to person, place, time, and situation. Cranial nerves II-XII grossly intact. Motor strength 5/5 in all extremities. Sensory grossly intact. Cerebellar exam normal. Normal gait. Psych: Awake, alert, with orientation to person, place and time. Behavior, mood, and affect are within normal limits. 13:11 ECG was reviewed by the Attending Physician. Vital Signs: 10:53 BP 161 / 103; Pulse 95; Resp 18; Temp 99.2; Pulse Ox 99% ; Weight 112.49 kg; Height 5 hb ft. 4 in. ; Pain 8/10; 12:13 BP 131 / 87; Pulse 93; Resp 20 S; Pulse Ox 100% on R/A; kc6 13:11 BP 165 / 103; Pulse 92; Resp 18 S; Temp 98.2(O); Pulse Ox 99% on R/A; kc6 13:53 BP 148 / 88; kc6 10:53 Body Mass Index 42.57 (112.49 kg, 162.56 cm) hb 10:53 Pain Scale: Adult hb MDM: 10:52 Medical Screening Exam initiated angelica 13:13 Differential diagnosis: cardiac arrhythmia, CVA, generalized weakness, head injury, angelica hypovolemia, idiopathic dizziness, near-syncope, TIA. Data reviewed: vital signs, nurses notes, lab test result(s), EKG, radiologic studies. Consideration of Admission/Observation Escalation of care including admission/observation considered. I considered the following discharge prescriptions or medication management in the emergency department Medications were administered in the Emergency Department. See MAR. Independent interpretation of the following test(s) in the Emergency Department EKG: See my EKG interpretation above. Test considered but Not performed: MRI: no mri. Historians other than the Patient:. Care significantly affected by the following chronic conditions: Diabetes, Obesity, pcos. Counseling: I had a detailed discussion with the patient and/or guardian regarding the historical points, exam findings, and any diagnostic results supporting the discharge/admit diagnosis, lab results, radiology results, the need for outpatient follow up, for definitive care, a family practitioner, a neurologist. 07/01 10:53 Order name: Basic Metabolic Panel; Complete Time: 12:42 angelica 07/01 10:53 Order name: CBC with Diff; Complete Time: 12:42 angelica 07/01 10:53 Order name: LFT's; Complete Time: 12:42 07/01 10:53 Order name: Magnesium; Complete Time: 12:42 07/01 10:53 Order name: NT PRO-BNP; Complete Time: 12:42 angelica 07/01 10:53 Order name: PT-INR; Complete Time: 12:42 07/01 10:53 Order name: Troponin HS; Complete Time: 12:42 07/01 10:53 Order name: Lipase; Complete Time: 12:42 07/01 10:53 Order name: Urinalysis w/ reflexes; Complete Time: 12:42 07/01 10:53 Order name: PREGU; Complete Time: 12:42 07/01 10:53 Order name: XRAY Chest (1 view); Complete Time: 12:42 [facility] 07/01 12:43 Order name: CT Head Brain wo Cont; Complete Time: 13:10 [facility] 07/01 10:53 Order name: Cardiac monitoring; Complete Time: 11:56 [facility] 07/01 10:53 Order name: EKG - Nurse/Tech; Complete Time: 11:56 [facility] 07/01 10:53 Order name: IV Saline Lock; Complete Time: 11:56 [facility] 07/01 10:53 Order name: Labs collected and sent; Complete Time: 11:56 [facility] 07/01 10:53 Order name: O2 Per Protocol; Complete Time: 11:56 [facility] 07/01 10:53 Order name: O2 Sat Monitoring; Complete Time: 11:56 [facility] EC:11 Rate is 89 beats/min. Rhythm is regular. QRS [place] is Normal. AR interval is normal. QRS angelica interval is normal. QT interval is normal. No Q waves. T waves are Normal. No ST changes noted. Clinical impression: NSR w/ Non-specific ST/T Changes and No evidence of ischemia. Interpreted by me. Reviewed by me. Administered Medications: 11:56 Drug: Aspirin PO Chewable Tablet 324 mg PO once; 81 mg tablets x 4 Route: PO; kc6 12:38 Follow up: Response: No adverse reaction kc6 11:56 Drug: NS 0.9% IV 1000 ml IV at 1 bolus Per protocol; to be given as a bolus over 60 kc6 minutes Route: IV; Rate: 1 bolus; Site: right forearm; 13:52 Follow up: Response: No adverse reaction; IV Status: Completed infusion; IV Intake: kc6 1000ml 13:10 Drug: Ketorolac IVP 30 mg IVP once Route: IVP; Site: right forearm; kc6 13:52 Follow up: Response: No adverse reaction; Pain is decreased kc6 13:11 Drug: diphenhydrAMINE IVP 25 mg IVP once Route: IVP; Site: right forearm; kc6 13:52 Follow up: Response: No adverse reaction kc6 13:11 Drug: metoCLOPramide IVP 10 mg IVP once; over 1 to 2 minutes Route: IVP; Site: right kc6 forearm; 13:53 Follow up: Response: No adverse reaction kc6 Disposition Summary: 07/01/24 13:16 Discharge Ordered Notes: Location: Home angelica Problem: new angelica Symptoms: have improved angelica Condition: Stable angelica Diagnosis - Dizziness and giddiness angelica - Carpal tunnel syndrome angelica - Essential (primary) hypertension angelica Followup: angelica - With: Private Physician - When: 2 - 3 days - Reason: Recheck today's complaints, Continuance of care, Re-evaluation by your physician Followup: angelica - With: Devendra Awan MD - When: 2 - 3 days - Reason: Recheck today's complaints, Re-evaluation by your physician Followup: angelica - With: Burton Benites MD - When: 2 - 3 days - Reason: Recheck today's complaints, Re-evaluation by your physician Discharge Instructions: - Discharge Summary Sheet angelica - Dizziness angelica - Hypertension, Adult angelica - Hypertension, Adult, [id number] angelica - How to Take Your Blood Pressure, [id number]-Gbgs angelica - Aspirin and Your Heart angelica - Dizziness, [id number] angelica - Managing Your Hypertension angelica Forms: - Medication Reconciliation Form angelica - Antibiotic Education angelica - Prescription Opioid Use angelica - Patient Portal Instructions angelica - Leadership Thank You Letter angelica - Work release form kc6 Prescriptions: - chlorthalidone 25 mg Oral tablet - take 1 tablet ORAL route once; 20 tablet; Refills: 0, Product Selection angelica Permitted Signatures: Dispatcher [employer] Siva Alonso MD MD cha Baxter, Heather, RN RN Anette Redmond RN RN kc6 Corrections: (The following items were deleted from the chart) 10:53 10:53 Chest Single View+RAD.RAD.BRZ ordered. EDMS EDMS 10:53 10:53 Urinalysis+U.LAB.BRZ ordered. EDMS EDMS
[2024-07-01 14:19] VITALS: TEMP 98.2; O2SAT 99
[2024-07-01 14:20] VITALS: BP 148/88
--- NOTE | 2024-07-03 11:05 | EKG ---
Test Date: 2024-07-01 Test Time: 11:44:19 Fireproof Door Maker: JESSICA MEASUREMENT RESULTS: Intervals: Rate: 89 WY: 138 QRSD: 84 QT: 368 QTc: 447 [place]: P: 60 WY: 138 QRS: 62 T: 0 INTERPRETIVE STATEMENTS: Sinus rhythm with occasional premature ventricular complexes Nonspecific T wave abnormality Abnormal ECG Compared to ECG 10/15/2022 07:21:14 Ventricular premature complex(es) now present Sinus tachycardia no longer present Possible ischemia no longer present T-wave abnormality still present Electronically Signed On 07-03-24 10:59:37 CDT by Nicolás Vega
== END 2024-07-01 13:53 | disposition home or self-care (01) ==
LOC: ER 10:40
DX: R42 Dizziness and giddiness (principal); G56.02 Carpal tunnel syndrome, left upper limb; I10 Essential (primary) hypertension
CPT/HCPCS: 96361; 93005; 85025; 81001; 80048; 36415; 83735; 81025; 85610; 80076; 84484; 83690; 83880; 70450; 71045; 96375; 96374; 99285; J2765; J1200; J7030

== ENCOUNTER 2025-02-12 13:22 | Emergency (ER) | payer BC, OTHER ==
--- NOTE | 2025-02-12 14:01 | EDPHYS ---
Physician Documentation [facility] Name: Melanie Paz Age: 35 yrs Sex: Female : 1990 Arrival Date: 02/12/2025 Time: 13:22 Bed 19 Private MD: ED Physician Chidi Portillo HPI: 02/12 16:22 This 35 yrs old Black Female presents to ER via Ambulatory with complaints of Facial ms3 Droop. 16:22 35-year-old female with past medical history of diabetes, PCOS [place] [facility] [place] for right facial weakness that began yesterday and right-sided ear pain that she rates a 10/02. Patient denies fevers, chills, nausea, vomiting. Patient denies arm or leg weakness or numbness.. 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 - Infectious Disease History:: Denies. - Social history:: Smoking status: Patient denies any tobacco usage or history of. ROS: 16:22 Constitutional: Negative for fever, and chills. Cardiovascular: Negative for chest ms3 pain, and palpitations. Respiratory: Negative for shortness of breath, cough, wheezing, and pleuritic chest pain, Abdomen/GI: Negative for abdominal pain, nausea, vomiting, diarrhea, and constipation, MS/Extremity: Negative for injury and deformity, 16:22 Neuro: Positive for Right facial droop, Exam: 16:22 Constitutional: This is a well developed, well nourished patient who is awake, alert, ms3 and in no acute distress. Cardiovascular: Regular rate and rhythm with a normal S1 and S2. No gallops, murmurs, or rubs. Normal PMI, no JVD. No pulse deficits. Respiratory: Lungs have equal breath sounds bilaterally, clear to auscultation and percussion. No rales, rhonchi or wheezes noted. No increased work of breathing, no retractions or nasal flaring. Abdomen/GI: Soft, non-tender, with normal bowel sounds. No distension or tympany. No guarding or rebound. No evidence of tenderness throughout. Skin: Warm, dry with normal turgor. Normal color with no rashes, no lesions, and no evidence of cellulitis. MS/ Extremity: Pulses equal, no cyanosis. Neurovascular intact. Full, normal range of motion. 16:22 Neuro: Orientation: is normal, to person, place, time \T\ situation. Mentation: is normal, Memory: is normal, Cranial nerves: normal except facial nerve, Cerebellar function: is grossly normal, Motor: right facial droop without forehead sparing, Sensation: is normal, Gait: is steady, at a normal pace, Vital Signs: 13:32 BP 147 / 101; Pulse 92; Resp 16; Temp 98.7; Pulse Ox 100% on R/A; Weight 112.49 kg; dd2 Height 5 ft. 4 in. ; Pain 6/10; 14:00 BP 141 / 78; Pulse 78; Resp 18; Pulse Ox 100% ; rg5 13:32 Body Mass Index 42.57 (112.49 kg, 162.56 cm) dd2 13:32 Pain Scale: Adult dd2 NIH Stroke Scale Scores: 13:30 NIHSS Score: 0 rg5 MDM: 13:53 Medical Screening Exam initiated ms3 16:22 Data reviewed: vital signs, nurses notes, and as a result, I will discharge patient. I ms3 considered the following discharge prescriptions or medication management in the emergency department Medications were administered in the Emergency Department. See MAR. Counseling: I had a detailed discussion with the patient and/or guardian regarding the historical points, exam findings, and any diagnostic results supporting the discharge/admit diagnosis, the need for outpatient follow up, to return to the emergency department if symptoms worsen or persist or if there are any questions or concerns that arise at home. Special discussion: I discussed with the patient/guardian in detail that at this point there is no indication for admission to the hospital. It is understood, however, that if the symptoms persist or worsen the patient needs to return immediately for re-evaluation. ED course: Discussed physical exam findings with patient, her aunt, and her mother. Patient to follow-up with primary care physician in 2 to 3 days. All questions were answered. Return precautions were discussed include worsening symptoms, or any other concerns. Patient given prescription for valacyclovir, prednisone. Discussed Lacri-Lube or artificial tears for patient's eyes and taping right eye closed with paper tape at night. Patient voiced understanding.. 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 Followup: ms3 - With: Audrey Florian MD - When: 2 - 3 days - Reason: Recheck today's complaints Discharge Instructions: - Discharge Summary Sheet ms3 - Davidson's Palsy, Adult ms3 Forms: - Medication Reconciliation Form ms3 - Antibiotic Education ms3 - Prescription Opioid Use ms3 - Patient Portal Instructions ms3 - Leadership Thank You Letter ms3 Prescriptions: - Artificial Tears (PF) Ophthalmic Dropperette - instill 1 drop OPHTHALMIC route 4 to 12 times per day as needed for dry eye(s); ms3 1 dropperful; Refills: 0, Product Selection Permitted - valacyclovir 1 gram Oral tablet - take 1 tablet ORAL route 3 times per day for 7 days; 21 tablet; Refills: 0, ms3 Product Selection Permitted - Prednisone 20 mg Oral tablet - take 3 tablets ORAL route once daily for 7 days; 21 tablet; Refills: 0, Product ms3 Selection Permitted NIH Stroke Scale - NIH Stroke Score Date: 02/12/2025 Time: 13:30 Total Score = 0 10. Dysarthria (speech clarity - read or repeat words) - 0(Normal) 11. Extinction and Inattention (visual/tactile/auditory/spatial/personal) - 0(No abnormality) 1a. Level of Consciousness (LOC) - 0(Alert) 1b. Level of Consciousness (LOC) (Month \T\ Age) - 0(Both) 1c. LOC Commands (Open \T\ Closes Eyes/Transit Mix Operator) - 0(Both) 2. Best Gaze (Lateral Gaze Paresis) - 0(Normal) 3. Visual Field Loss - 0(No visual loss) 4. Facial Palsy - 0(Normal) 5a. Left Arm: Motor (10-second hold) - 0(No drift) 5b. Right Arm: Motor (10-second hold) - 0(No drift) 6a. Left Leg: Motor (5-second hold - always test supine) - 0(No drift) 6b. Right Leg: Motor (5-second hold - always test supine) - 0(No drift) 7. Limb Ataxia (finger/nose \T\ heel/hernandez - test with eyes open) - 0(Absent) 8. Sensory Loss (pinprick arms/legs/face) - 0(Normal) 9. Best Language: Aphasia (description/naming/reading) - 0(No aphasia) Initials: rg5 Signatures: Chidi Portillo, DO ms3 Héctor Parikh, RN RN rg5 MALCOM SALCEDO RN RN dd2
--- NOTE | 2025-02-12 14:01 | ER ---
Nurse's Notes [facility] Name: Melanie Paz Age: 35 yrs Sex: Female : 1990 Arrival Date: 02/12/2025 Time: 13:22 Bed 19 Private MD: Diagnosis: Davidson's palsy Presentation: 02/12 13:32 Chief complaint: Patient states: SHE BEGAN HAVING RT TOOTHACHE, RT EAR PAIN, RT SIDED dd2 TONGUE NUMBNESS AND HEADACHE ON TUESDAY, THEN WOKE UP YESTERDAY MORNING WITH RIGHT FACIAL DROOP. Coronavirus screen: At this time, the client does not indicate any symptoms associated with coronavirus-19. Ebola Screen: No symptoms or risks identified at this time. No acute neurological deficit is noted. Initial Sepsis Screen: Does the patient meet any 2 criteria? No. Patient's initial sepsis screen is negative. Does the patient have a suspected source of infection? No. Patient's initial sepsis screen is negative. Risk Assessment: Do you want to hurt yourself or someone else? Patient reports no desire to harm self or others. Onset of symptoms was February 08, 2025. 13:32 Method Of Arrival: Ambulatory dd2 13:32 Acuity: NEIL 3 dd2 Triage Assessment: 13:35 The onset of the patients symptoms was at an unknown time. General: Appears in no dd2 apparent distress. uncomfortable, Behavior is calm, cooperative, appropriate for age. Pain: Complains of pain in right ear. EENT: Reports pain in right ear, lower right first bicuspid, lower right second bicuspid, lower right first molar, lower right second molar and lower right third molar. Neuro: Facial droop on right, Reports headache in right RT FACIAL DROOP. 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 - Infectious Disease History:: Denies. - Social history:: Smoking status: Patient denies any tobacco usage or history of. Screenin:30 [facility] ED Fall Risk Assessment (Adult) History of falling in the last 3 months, rg5 including since admission No falls in past 3 months (0 pts) Confusion or Disorientation No (0 pts) Intoxicated or Sedated No (0 pts) Impaired Gait No (0 pts) Mobility Assist Device Used No (0 pt) Altered Elimination No (0 pt) Score/Fall Risk Level 0 - 2 = Low Risk Oriented to surroundings, Maintained a safe environment. Abuse screen: Denies threats or abuse. Nutritional screening: No deficits noted. Tuberculosis screening: No symptoms or risk factors identified. Assessment: 13:30 VAN Scoring: Arm Drift: Patients demonstrates NO arm weakness. Patient is VAN Negative. rg5 Visual Disturbance: No visual disturbance noted. Aphasia: No aphasia noted. Neglect: No neglect noted. [place] Swallow Protocol Exclusion Criteria: Exclusion Criteria Result: Brief Cognitive Screen What is your name? Normal, Where are you right now? Normal, What year is it? Normal. Oral Mechanism Examination Facial Symmetry: Normal, Motion: Normal, Lip Closure: Normal, Oral Mechanism Result: Normal. 3 oz Water Swallow Challenge: Pt able to drink all water without stopping, coughing, choking or throat clearing: Yes Result: PASS MD Notified: Chidi Portillo DO. TNKase (Tenecteplase) Screening:. General: Appears in no apparent distress. comfortable, Behavior is calm, cooperative, appropriate for age. Pain: Complains of pain in right ear and right jaw. Vital Signs: 13:32 BP 147 / 101; Pulse 92; Resp 16; Temp 98.7; Pulse Ox 100% on R/A; Weight 112.49 kg; dd2 Height 5 ft. 4 in. ; Pain 6/10; 14:00 BP 141 / 78; Pulse 78; Resp 18; Pulse Ox 100% ; rg5 13:32 Body Mass Index 42.57 (112.49 kg, 162.56 cm) dd2 13:32 Pain Scale: Adult dd2 NIH Stroke Scale Scores: 13:30 NIHSS Score: 0 rg5 ED Course: 13:23 Patient arrived in ED. im 13:30 Patient has correct armband on for positive identification. Bed in low position. Call rg5 light in reach. Side rails up X 1. Door closed. Noise minimized. 13:30 No provider procedures requiring assistance completed. Patient did not have IV access rg5 during this emergency room visit. 13:35 Triage completed. dd2 13:35 Chidi Portillo DO is Attending Physician. ms3 13:35 Arm band placed on right wrist. dd2 13:39 Patient placed in an exam room, on a stretcher. ll1 13:40 Héctor Parikh, VIDHI is Primary Nurse. rg5 14:01 Audrey Florian MD is Referral Physician. ms3 Administered Medications: 14:15 Drug: predniSONE PO 60 mg PO once Route: PO; rg5 14:15 Drug: valACYclovir PO 1000 mg PO once Route: PO; rg5 Medication: 13:30 VIS not applicable for this client. rg5 Outcome: 14:01 Discharge ordered by MD. ms3 14:29 Discharged to home ambulatory, rg5 14:29 Condition: stable rg5 14:29 Discharge instructions given to patient, Instructed on discharge instructions, Demonstrated understanding of instructions, follow-up care, medications, Prescriptions given X 2, 14:30 Patient left the ED. rg5 NIH Stroke Scale - NIH Stroke Score Date: 02/12/2025 Time: 13:30 Total Score = 0 10. Dysarthria (speech clarity - read or repeat words) - 0(Normal) 11. Extinction and Inattention (visual/tactile/auditory/spatial/personal) - 0(No abnormality) 1a. Level of Consciousness (LOC) - 0(Alert) 1b. Level of Consciousness (LOC) (Month \T\ Age) - 0(Both) 1c. LOC Commands (Open \T\ Closes Eyes/Mud Engineer) - 0(Both) 2. Best Gaze (Lateral Gaze Paresis) - 0(Normal) 3. Visual Field Loss - 0(No visual loss) 4. Facial Palsy - 0(Normal) 5a. Left Arm: Motor (10-second hold) - 0(No drift) 5b. Right Arm: Motor (10-second hold) - 0(No drift) 6a. Left Leg: Motor (5-second hold - always test supine) - 0(No drift) 6b. Right Leg: Motor (5-second hold - always test supine) - 0(No drift) 7. Limb Ataxia (finger/nose \T\ heel/hernandez - test with eyes open) - 0(Absent) 8. Sensory Loss (pinprick arms/legs/face) - 0(Normal) 9. Best Language: Aphasia (description/naming/reading) - 0(No aphasia) Initials: rg5 Signatures: Aleks Caraballo, RN RN ll1 Chidi Portillo, DO RAUSCH ms3 Jacki Amin Rommel, RN RN rg5 MALCOM SALCEDO RN RN dd2
[2025-02-12] MEDS ORDERED: VALACYCLOVIR 500 MG TAB ONE (14:05)
[2025-02-12] MEDS ORDERED: predniSONE 20 MG TAB ONE (14:11)
[2025-02-12 19:00] VITALS: TEMP 98.7; O2SAT 100
[2025-02-12 19:01] VITALS: BP 141/78
== END 2025-02-12 14:30 | disposition home or self-care (01) ==
LOC: ER 13:22
DX: G51.0 Bell's palsy (principal)
CPT/HCPCS: 99284; J7512

== ENCOUNTER 2025-02-19 09:21 | Emergency (ER) | payer BC, OTHER ==
[2025-02-19 10:35] LABS: Absolute Lymphocytes (CBC) 2.6 K/uL (0.7-4.9); Hematocrit 37.7 % (36.0-45.0); Hemoglobin 11.8 g/dL (12.0-15.0); MCH 22.0 pg (27.0-35.0); MCHC 31.2 g/dL (32.0-36.0); MCV 70.6 fL (80-100); MPV 9.2 fL (7.6-11.3); Nucleated RBC Absolute Count 0.0 (0-0); Nucleated Red Blood Cells % 0.1 % (0-0); RBC Red Blood Cell Count 5.35 M/uL (3.86-4.86); White Blood Count 11.30 thou/uL (4.3-10.9)
[2025-02-19 10:54] LABS: Influenza A Ag Positive
[2025-02-19 10:55] LABS: Influenza B Ag Negative; SARS-CoV-2 Antigen Rapid Res Negative (Negative)
--- NOTE | 2025-02-19 11:09 | RAD REPORT ---
EXAMINATION: ONE VIEW CHEST XR CLINICAL INDICATION: Female, 35 years old.,CHEST PAIN TECHNIQUE: Frontal chest projection is submitted. Examination is limited by patient positioning and t echnique. COMPARISON: 07/01/2024. FINDINGS: The lungs are well inflated and clear. No pneumothorax or sizable effusion. The heart is normal in s ize. Mediastinal contours are unremarkable. IMPRESSION: No acute intrathoracic abnormalities.
[2025-02-19 11:25] LABS: PT Prothrombin Time 12.5 SECONDS (10-13.0); Protime INR 1.11
[2025-02-19 11:48] LABS: ALT/SGPT 34 U/L (13-56); AST/SGOT 18 U/L (15-37); Albumin 3.1 g/dL (3.4-5.0); Albumin/Globulin Ratio 0.7 (1.1-1.8); Alkaline Phosphatase 100 U/L (45-117); Anion Gap 5.6 mEq/L (5.0-15.0); BUN Blood Urea Nitrogen 15 mg/dL (7-18); Globulin 4.2 g/dL (2.3-3.5); Glucose Level 96 mg/dL (74-106); Magnesium 2.0 mg/dL (1.6-2.4); Potassium 3.6 mEq/L (3.5-5.1); Thyroid Stimulating Hormone 1.760 uIU/mL (0.358-3.740); Troponin High Sensitivity 4.2 pg/mL (<58.9)
[2025-02-19 11:49] LABS: Bilirubin Indirect, Calculated 0.1 mg/dL (0.2-0.8); NT PRO-BNP < 5 pg/mL (<125)
[2025-02-19] MEDS ORDERED: ONDANSETRON 4 MG/2 ML VIAL ONE (11:56)
[2025-02-19] MEDS ORDERED: KETOROLAC 30 MG/ML INJ ONE (11:56)
[2025-02-19] MEDS ORDERED: NA CHLORIDE 0.9% 1,000 ML ONE (11:56)
[2025-02-19] MEDS ORDERED: IPRATROPIUM BROM 0.5MG/2.5ML ONE (13:20)
[2025-02-19] MEDS ORDERED: ALBUTEROL 2.5 MG/3 ML NEB SOL ONE (13:20)
--- NOTE | 2025-02-19 14:21 | RAD REPORT ---
EXAMINATION: CT Thorax Wo Con CLINICAL INDICATION: Female, 35 years old. [facility] MAIN Chest pain;Dyspnea Bed Name: 21 Y TECHNIQUE: Axial CT scan of the chest without intravenous contrast. Multiplanar reformats were genera pipo and reviewed. One or more of the following dose reduction techniques were used: Automated exposure control, adjustment of the mA and/or kV according patient size, and/or iterative reconstruct ion. Unless otherwise specified, incidental findings do not require dedicated imaging follow-up. COMPARISON: 07/10/2020 FINDINGS: LOWER NECK: Visualized thyroid gland and soft tissues are normal. LUNGS: The lungs are clear. No evidence of airspace or interstitial process. No worrisome nodules. PLEURA: No pleural effusion. No pneumothorax. . MEDIASTINUM AND LYMPH NODES: No mediastinal mass or fluid collection. Normal size mediastinal, hilar, and axillary lymph nodes. OSSEOUS STRUCTURES AND CHEST WALL: Intact. UPPER ABDOMEN: Partially included right renal interpolar transcortical 6.4 cm cystic lesion approxima ting fluid density, not well evaluated. Status post cholecystectomy. IMPRESSION: No acute or significant abnormalities. Examination is limited by lack of contrast. Incidentally noted right renal lesion, not fully evaluated. This can be further evaluated on renal ul trasound.
--- NOTE | 2025-02-19 14:43 | EDPHYS ---
Physician Documentation [facility] Name: Melanie Paz Age: 35 yrs Sex: Female : 1990 Arrival Date: 02/19/2025 Time: 09:21 Bed 23 Private MD: ED Physician Chidi Portillo HPI: 02/19 09:52 This 35 yrs old Black Female presents to ER via Ambulatory with complaints of Chest sb4 Pain, Body Heaviness, Swelling. 10:03 Patient states that she started experiencing chest pain/heaviness last night and this sb4 morning she has been feeling extremely weak, tired, like her body is very heavy. Has been getting short of breath walking short distances. States that she did go to work this morning but left early because of her symptoms. 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 Denies any cardiac history. 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 - Infectious Disease History:: Denies. - Social history:: Smoking status: Patient/guardian denies using tobacco. ROS: 10:03 Skin: Negative for injury, rash, and discoloration, sb4 10:03 Constitutional: Positive for fatigue, malaise, 10:03 Cardiovascular: Positive for chest pain, 10:03 Respiratory: Positive for dyspnea on exertion, 10:03 Abdomen/GI: Positive for nausea, 10:03 Neuro: Positive for dizziness, 10:03 All other systems are negative, Exam: 10:04 Head/Face: Normocephalic, atraumatic. Eyes: Extra-ocular motions intact. Periorbital sb4 areas with no swelling, redness, or edema. ENT: Mucous membranes moist. Cardiovascular: Regular rate and rhythm with a normal S1 and S2. Respiratory: No increased work of breathing, no retractions or nasal flaring. Abdomen/GI: Soft, non-tender, no distension. Skin: Warm, dry with normal turgor. Normal color with no rashes, no lesions, and no evidence of cellulitis. 10:04 Constitutional: The patient appears in no acute distress, alert, awake, Vital Signs: 09:42 Pulse 90; Resp 17; Temp 98.5; Pulse Ox 100% ; Weight 113.4 kg; Height 5 ft. 4 in. ; ap3 Pain 8/10; 09:42 BP 147 / 91; ap3 12:02 BP 123 / 70; Pulse 86; Resp 18; Pulse Ox 99% ; Pain 6/10; rg5 13:00 BP 123 / 64; Pulse 80; Resp 17; Pulse Ox 100% ; rg5 14:07 BP 127 / 82; Pulse 81; Resp 18; Pulse Ox 100% ; rg5 09:42 Body Mass Index 42.91 (113.40 kg, 162.56 cm) ap3 09:42 Pain Scale: Adult ap3 12:02 Pain Scale: Adult rg5 MDM: 09:28 Medical Screening Exam initiated sb4 15:01 Differential diagnosis: viral Infection, bacterial infection, URI, bronchitis, sb4 pneumonia. Data reviewed: vital signs, nurses notes, lab test result(s), EKG, radiologic studies, and as a result, I will discharge patient. Consideration of Admission/Observation Escalation of care including admission/observation considered. Care significantly affected by the following chronic conditions: Hypertension. Scoring Tools HEART Score: History: ECG: Age: Risk Factors: 1 or 2 risk factors (1), Troponin: Total Score = 1. Counseling: I had a detailed discussion with the patient and/or guardian regarding the historical points, exam findings, and any diagnostic results supporting the discharge/admit diagnosis, lab results, radiology results, the need for outpatient follow up, for definitive care, to return to the emergency department if symptoms worsen or persist or if there are any questions or concerns that arise at home. Special discussion: Based on the patient's history, exam, and Dx evaluation, there is no indication for emergent intervention or inpatient Tx. It is understood by the patient/guardian that if the Sx's persist or worsen they need to return immediately for re-evaluation. 02/19 09:50 Order name: Basic Metabolic Panel; Complete Time: 11:50 sb4 02/19 09:50 Order name: CBC with Diff; Complete Time: 10:45 sb4 02/19 09:50 Order name: LFT's; Complete Time: 11:50 sb4 02/19 09:50 Order name: Magnesium; Complete Time: 11:50 4 02/19 09:50 Order name: NT PRO-BNP; Complete Time: 11:50 02/19 09:50 Order name: PT-INR; Complete Time: 11:28 4 02/19 09:50 Order name: Troponin HS; Complete Time: 11:50 4 02/19 09:50 Order name: TSH; Complete Time: 11:50 02/19 09:50 Order name: Gray Screen Profile; Complete Time: 11:36 02/19 09:50 Order name: COVID-19 Ag + Flu A+B Ag; Complete Time: 10:55 4 02/19 13:11 Order name: Troponin High Sensitivity sb4 02/19 09:50 Order name: XRAY Chest (1 view); Complete Time: 11:09 4 02/19 13:18 Order name: Chest Wo Con CT; Complete Time: 14:22 4 02/19 09:50 Order name: EKG; Complete Time: 09:51 02/19 09:50 Order name: Cardiac monitoring; Complete Time: 12:43 02/19 09:50 Order name: EKG - Nurse/Tech; Complete Time: 09:55 02/19 09:50 Order name: IV Saline Lock; Complete Time: 10:33 02/19 09:50 Order name: Labs collected and sent; Complete Time: 10:33 02/19 09:50 Order name: O2 Per Protocol; Complete Time: 12:43 02/19 09:50 Order name: O2 Sat Monitoring; Complete Time: 12:43 02/19 10:41 Order name: Labs - recollect needed: recollect green and blue; Complete Time: 11:14 bd EC:01 Rate is 92 beats/min. Rhythm is regular, Sinus Rhythm. [place] interval is normal at 137 sb4 msec. QRS interval is normal at 89 msec. QT interval is normal at 351 msec. No Q waves. T waves are Normal. No ST changes noted. Clinical impression: No evidence of ischemia. Interpreted by me. Reviewed by me. Administered Medications: 12:01 Drug: NS 0.9% IV 1000 ml IV at 1000 ml once; to be given as a bolus over 60 minutes rg5 Route: IV; Rate: 1000 ml; Site: right antecubital; 14:05 Follow up: IV Status: Completed infusion; IV Intake: 1000ml rg5 12:01 Drug: Ketorolac IM 15 mg IM once Route: IM; Site: right deltoid; rg5 12:43 Follow up: Response: No adverse reaction; Pain is decreased rg5 12:01 Drug: Ondansetron IVP 4 mg IVP once; over 2 minutes Route: IVP; Site: right antecubital;rg5 12:43 Follow up: Response: No adverse reaction rg5 13:30 Drug: DuoNeb Nebulize (3:1) (2.5 mg - 0.5 mg) 3 ml Nebulizer once Route: Nebulizer; rg5 Disposition: 18:24 I was immediately available on-site in the Emergency Department for consultation in the ms3 care of the patient. Disposition Summary: 02/19/25 14:42 Discharge Ordered Notes: Location: Home sb4 Problem: new sb4 Symptoms: have improved sb4 Condition: Stable sb4 Diagnosis - Influenza due to identified novel influenza A virus sb4 Followup: sb4 - With: Emergency Department - When: As needed - Reason: Trouble breathing, Worsening of condition Discharge Instructions: - Discharge Summary Sheet sb4 - Fatigue sb4 - Influenza, Adult, [id number] sb4 Forms: - Work release form ap3 - Patient Portal Instructions sb4 - Leadership Thank You Letter sb4 Prescriptions: - albuterol sulfate 90 mcg/actuation Inhalation HFA Aerosol Inhaler - inhale 1 puff INHALATION route every 6 hours as needed for shortness of breath sb4 or wheezing; 1 Applicator; Refills: 0, Product Selection Permitted Signatures: Dispatcher [employer] EDMS Oneida Aguilar Amanda RN RN ap3 Chidi Portillo DO DO ms3 Rosalinda Costello PA-C PADao sb4 Héctor Parikh, RN RN rg5 Corrections: (The following items were deleted from the chart) 09:45 09:44 PMHx: Diabetes - NIDDM; ap3 ap3 09:51 09:51 BASIC METABOLIC PANEL+C.LAB.BRZ ordered. EDMS EDMS 09:51 09:51 CBC+H.LAB.BRZ ordered. EDMS EDMS 09:51 09:51 HEPATIC FUNCTION+C.LAB.BRZ ordered. EDMS EDMS 09:51 09:51 MAGNESIUM+C.LAB.BRZ ordered. EDMS EDMS :51 09:51 PROBNP+C.LAB.BRZ ordered. EDMS EDMS : 09:51 PROTIME (+INR)+COAG.LAB.BRZ ordered. EDMS EDMS :51 09:51 Troponin High Sensitivity+C.LAB.BRZ ordered. EDMS EDMS :51 09:51 THYROID STIMULAT HORMONE+C.LAB.BRZ ordered. EDMS EDMS : 09:51 MONO SCREEN PROFILE+I.LAB.BRZ ordered. EDMS EDMS :51 09:51 COVID-19 Ag + Flu A+B Ag+I.LAB.BRZ ordered. EDMS EDMS 13:12 13:12 Troponin High Sensitivity+C.LAB.BRZ ordered. EDMS EDMS
--- NOTE | 2025-02-19 14:43 | ER ---
Nurse's Notes [facility] Name: Melanie Paz Age: 35 yrs Sex: Female : 1990 Arrival Date: 02/19/2025 Time: 09:21 Bed 23 Private MD: Diagnosis: Influenza due to identified novel influenza A virus Presentation: 02/19 09:42 Chief complaint: Patient states: she started having chest pain last night and ap3 generalized body heaviness this morning. patient reports fatigue. patient states that yesterday she was so tired, she was unable to get off of her couch. patient currently rates her pain as an 8/10 on the pain scale. Coronavirus screen: At this time, the client does not indicate any symptoms associated with coronavirus-19. Ebola Screen: No symptoms or risks identified at this time. Initial Sepsis Screen: Does the patient meet any 2 criteria? No. Patient's initial sepsis screen is negative. Does the patient have a suspected source of infection? No. Patient's initial sepsis screen is negative. Risk Assessment: Do you want to hurt yourself or someone else? Patient reports no desire to harm self or others. Onset of symptoms was February 18, 2025. 09:42 Method Of Arrival: Ambulatory ap3 09:42 Acuity: NEIL 2 ap3 Triage Assessment: 09:45 General: Appears uncomfortable, Behavior is calm, cooperative, appropriate for age. ap3 General: Reports fatigue for. Pain: Complains of pain in chest Pain currently is 8 out of 10 on a pain scale. Neuro: Level of Consciousness is awake, alert, obeys commands, Oriented to person, place, time, situation, Appropriate for age. Cardiovascular: Reports chest pain, Patient's skin is warm and dry. Respiratory: Airway is patent Respiratory effort is even, unlabored, Respiratory pattern is regular, symmetrical. 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 - Infectious Disease History:: Denies. - Social history:: Smoking status: Patient/guardian denies using tobacco. Screenin:46 Abuse screen: Denies threats or abuse. Nutritional screening: No deficits noted. ap3 Tuberculosis screening: No symptoms or risk factors identified. 12:00 [facility] ED Fall Risk Assessment (Adult) History of falling in the last 3 months, rg5 including since admission No falls in past 3 months (0 pts) Confusion or Disorientation No (0 pts) Intoxicated or Sedated No (0 pts) Impaired Gait No (0 pts) Mobility Assist Device Used No (0 pt) Altered Elimination No (0 pt) Score/Fall Risk Level 0 - 2 = Low Risk Oriented to surroundings, Maintained a safe environment. Abuse screen:. Assessment: 12:00 General: Appears in no apparent distress. Reports feeling ill for 0-12 hours. rg5 12:00 Pain: Complains of pain in chest Quality of pain is described as aching. Pain: Pain rg5 does not radiate. Pain currently is 7 out of 10 on a pain scale. Pain began gradually. Neuro: Level of Consciousness is awake, alert, obeys commands, Oriented to person, place, time, situation. Cardiovascular: Patient's skin is warm and dry. 13:00 Reassessment: No changes from previously documented assessment. Patient and/or family rg5 updated on plan of care and expected duration. Pain level reassessed. Patient is alert, oriented x 3, equal unlabored respirations, skin warm/dry/pink. 14:05 Reassessment: Patient states symptoms have improved. rg5 Vital Signs: 09:42 Pulse 90; Resp 17; Temp 98.5; Pulse Ox 100% ; Weight 113.4 kg; Height 5 ft. 4 in. ; ap3 Pain 8/10; 09:42 BP 147 / 91; ap3 12:02 BP 123 / 70; Pulse 86; Resp 18; Pulse Ox 99% ; Pain 6/10; rg5 13:00 BP 123 / 64; Pulse 80; Resp 17; Pulse Ox 100% ; rg5 14:07 BP 127 / 82; Pulse 81; Resp 18; Pulse Ox 100% ; rg5 09:42 Body Mass Index 42.91 (113.40 kg, 162.56 cm) ap3 09:42 Pain Scale: Adult ap3 12:02 Pain Scale: Adult rg5 ED Course: 09:24 Patient arrived in ED. cj3 09:28 Rosalinda Costello PA-C is PHCP. sb4 09:28 Chidi Portillo DO is Attending Physician. sb4 09:44 Triage completed. ap3 09:46 Arm band placed on right wrist. ap3 09:46 Patient maintains SpO2 saturation greater than 95% on room air. ap3 09:55 EKG done, by ED staff, reviewed by Rosalinda Costello PA-C. ap3 10:25 Radiology exam delayed due to no answer in lobby. az 10:33 COVID-19 Ag + Flu A+B Ag Sent. bc6 10:33 [place] Screen Profile Sent. bc6 10:33 TSH Sent. bc6 10:33 Basic Metabolic Panel Sent. bc6 10:33 CBC with Diff Sent. bc6 10:33 LFT's Sent. bc6 10:33 Magnesium Sent. bc6 10:33 NT PRO-BNP Sent. bc6 10:33 PT-INR Sent. bc6 10:33 Troponin HS Sent. bc6 10:33 Initial lab(s) drawn, by me, sent to lab. COVID swab sent to lab. Inserted saline lock: bc6 24 gauge in right antecubital area, using aseptic technique. Blood collected. Flushed with 10 mL NS. 10:51 XRAY Chest (1 view) In Process Unspecified. EDMS 11:43 Héctor Parikh, RN is Primary Nurse. rg5 12:00 Patient has correct armband on for positive identification. Bed in low position. Call rg5 light in reach. Side rails up X 1. Client placed on continuous cardiac and pulse oximetry monitoring. NIBP monitoring applied. cafeteria monitor on. Pulse ox on. NIBP on. Door closed. Noise minimized. Warm blanket given. 12:00 No provider procedures requiring assistance completed. rg5 13:[address] In Process Unspecified. EDMS 15:04 IV discontinued, bleeding controlled, No redness/swelling at site. Pressure dressing rg5 applied. Administered Medications: 12:01 Drug: NS 0.9% IV 1000 ml IV at 1000 ml once; to be given as a bolus over 60 minutes rg5 Route: IV; Rate: 1000 ml; Site: right antecubital; 14:05 Follow up: IV Status: Completed infusion; IV Intake: 1000ml rg5 12:01 Drug: Ketorolac IM 15 mg IM once Route: IM; Site: right deltoid; rg5 12:43 Follow up: Response: No adverse reaction; Pain is decreased rg5 12:01 Drug: Ondansetron IVP 4 mg IVP once; over 2 minutes Route: IVP; Site: right antecubital;rg5 12:43 Follow up: Response: No adverse reaction rg5 13:30 Drug: DuoNeb Nebulize (3:1) (2.5 mg - 0.5 mg) 3 ml Nebulizer once Route: Nebulizer; rg5 Medication: 12:00 VIS not applicable for this client. rg5 Intake: 14:05 IV: 1000ml; Total: 1000ml. rg5 Outcome: 14:42 Discharge ordered by MD. sb4 15:04 Discharged to home ambulatory, rg5 15:04 Condition: stable 15:04 Discharge instructions given to patient, Instructed on discharge instructions, Demonstrated understanding of instructions, Prescriptions given X 1, 15:05 Patient left the ED. rg5 Signatures: Dispatcher [employer] EDMS Jenny Lenz RN RN ap3 Nat Perales Sophia, PA-C PA-C sb4 Yuki Manning bc6 Héctor Parikh RN RN rg5 Karuna Arreguin cj3 Corrections: (The following items were deleted from the chart) 09:45 09:44 PMHx: Diabetes - NIDDM; ap3 ap3
[2025-02-19 20:46] VITALS: TEMP 98.5
[2025-02-19 20:52] VITALS: O2SAT 100
[2025-02-19 20:53] VITALS: BP 127/82
== END 2025-02-19 15:05 | disposition home or self-care (01) ==
LOC: ER 09:21
DX: J10.1 Influenza due to other identified influenza virus with other respiratory manifestations (principal); Z11.52 Encounter for screening for COVID-19; I10 Essential (primary) hypertension
CPT/HCPCS: 96361; 93005; 85025; 80048; 36415; 83735; 86308; 85610; 80076; 84443; 84484 ×2; 83880; 71250; 71045; 96372; 96374; 99285; 87428; J1885; J7613; J7644; J2405; J7030